=== PATIENT | female | born 1950 | race Caucasian/White ===

== ENCOUNTER → 2016-11-21 | Outpatient (CLI) | payer MEDICARE ==
[~2016-11-21] MED LIST: REGADENOSON 0.4 MG/5 ML SYRINGE IV ONE
--- NOTE | 2016-11-21 12:54 | NM ---
EXAMINATION TYPE: NM stress lexiscan cardiolite DATE OF EXAM: 11/21/2016 11:04 AM COMPARISON: NONE HISTORY: CHF TECHNIQUE: After the intravenous administration of 10.5 mCi Tc 99m Sestamibi - Cardiolite resting SP ECT images acquired 45 minutes post injection. The patient received 0.4mg Lexiscan, 25.8 mCi Tc 99m Sestamibi - Stress images obtained [address] injection FINDINGS: Review of stress and rest SPECT images demonstrates no distinct perfusion abnormality. Gated analysi s shows normal wall motion with an estimated left ventricular ejection fraction of 63 %. Some apical thinning appears to be present. This may be subtly greater on the stress images than rest images. Some minimal apical stress-induced ischemic change may be present. Remainder of the jarrett ab normal radiotracer distribution on resting and stress images. Wall motion appears normal polar maps s ubtly support the ischemic changes in the cardiac apex. IMPRESSION: 1. There may be some minimal stress-induced ischemic change the cardiac apex on stress images with mo re normal distribution at rest images. This is a subtle limited finding. 2. Remainder of the stress myocardial study appears normal.
--- NOTE | 2016-11-21 13:57 | EST ---
DATE OF SERVICE: 11/21/16 AGE: 66Y SEX: F HT: 65" WT: 222 lbs. Protocol Vignesh: Other: X Stage: Dur. of Exercise: *Heart Rate Blood Pressure *Rest: 76 Rest: 167/77 * *Max. Achieved: 104 Maximum BP: 167/70 85% PMHR: 129 100% PMHR: 152 *METS: INDICATIONS: Chest pain, hypertension. MEDICATIONS: The test is being done to evaluate cardiac status and chest pains. Baseline EKG showed sinus rhythm with normal MA interval and QRS duration. Blood pressure at rest is 167/77 with a pulse rate of 76. A standard dose of Lexiscan was infused. EKGs taken during and after the excise and did not reveal any changes from the baseline. FINAL IMPRESSION: 1. Negative Lexiscan stress test. 2. Report on the nuclear images to be given by the radiologist.
== END ==
LOC: RADNMMAIN 08:51
PROVIDERS: ATTEND Family Medicine
DX: I50.9 Heart failure, unspecified (principal)
CPT/HCPCS: 93017; 78452; A9500; J2785

== ENCOUNTER 2016-11-25 08:30 | Inpatient (IN) | payer MEDICARE ==
[2016-11-25 08:47] LABS: Glucose,Whole Blood 120 mg/dL (75-99)
[2016-11-25] MEDS ORDERED: RX INFO: IV CONTRAST WAS GIVEN 1 EACH MISC MISCELLANE PRN (09:18)
--- NOTE | 2016-11-25 09:22 | ED ---
Weakness HPI - General Chief complaint: Chest Pain Stated complaint: chest pain Time Seen by Provider: 11/25/16 08:38 Source: patient, RN notes reviewed Mode of arrival: ambulatory Limitations: no limitations - History of Present Illness Initial comments: This patient is a 66-year-old woman who presents to be evaluated for some left- sided chest pains that have been going on intermittently for a number of weeks, but were worse this morning. In addition the patient describes feeling some numbness to the perioral area and also to the left shoulder. MD Complaint: focal weakness -: hour(s) Location: face Severity: mild Quality: tingling, numbness Improves with: none Worsens with: none Associated Symptoms: chest pain - Related Data Home Medications Medication Instructions Recorded Confirmed Multivitamins, Thera [Multivitamin] 1 tab PO DAILY 10/12/16 11/25/16 Omeprazole [PriLOSEC] 20 mg PO DAILY 10/12/16 11/25/16 Previous Rx's Medication Instructions Recorded Atorvastatin [Lipitor] 20 mg PO DAILY #30 tab 10/13/16 Lisinopril [Zestril] 10 mg PO DAILY #30 tab 10/13/16 Metoprolol Tartrate [Lopressor] 50 mg PO DAILY #30 tab 10/13/16 amLODIPine [Norvasc] 5 mg PO DAILY #30 tab 10/13/16 Allergies Allergy/AdvReac Type Severity Reaction Status Date / Time No Known Allergies Allergy Verified 11/25/16 08:43 Review of Systems ROS Statement: Those systems with pertinent positive or pertinent negative responses have been documented in the HPI. ROS Other: All systems not noted in ROS Statement are negative. Constitutional: Reports: weakness. Denies: fever, chills Eyes: Reports: vision change Respiratory: Denies: cough, dyspnea Cardiovascular: Reports: as per HPI, chest pain. Denies: palpitations, dyspnea on exertion, orthopnea, edema, syncope Gastrointestinal: Denies: abdominal pain, nausea, vomiting Genitourinary: Denies: dysuria, hematuria Musculoskeletal: Denies: back pain Skin: Denies: rash Neurological: Reports: as per HPI, weakness, numbness. Denies: headache Past Medical History Past Medical History: GERD/Reflux, Osteoarthritis (OA) Additional Past Medical History / Comment(s): Kidney Stones, STRESS TEST, USED TO TAKE MEDS FOR HIGH BLOOD PRESSURE AND THYROID BUT TAKEN OFF BOTH FEW YEARS AGO.KIDENY STONES, CURRENTLY TAKING ABX FOR RT EYE INFECTION D/T A SCRATCH. History of Any Multi-Drug Resistant Organisms: None Reported Past Surgical History: Cholecystectomy, Hysterectomy Additional Past Surgical History / Comment(s): Lithotripsy, basket retrieval of kidney stones, COLONOSCOPY Past Anesthesia/Blood Transfusion Reactions: No Reported Reaction Additional Past Anesthesia/Blood Transfusion Reaction / Comment(s): BLOOD TRANSUFSION WHEN HAVING HER CHILDREN-NO REACTIONS TO BLOOD. Past Psychological History: No Psychological Hx Reported Smoking Status: Former smoker Past Alcohol Use History: Occasional Additional Past Alcohol Use History / Comment(s): STARTED SMOKING AT AGE 18 AND QUIT AT AGE 25 (LITE SMOKER) Past Drug Use History: None Reported - Past Family History Mother Family Medical History: Cancer Additional Family Medical History / Comment(s): HAD LYMPHOMA THEN 15 YEARS LATER HAD SMALL CELL CA(TOMACH) Father Family Medical History: Myocardial Infarction ([place]) Additional Family Medical History / Comment(s): PT WAS 9 YEARS OLD WHEN HER FATHER FROM MASSIVE RI. Brother(s) Family Medical History: Coronary Artery Disease (CAD), Myocardial Infarction (RI ) Additional Family Medical History / Comment(s): Pt had a 42 yrs old brother of a massive RI and another brother who had CABG at the age of 39yrs. General Exam Limitations: no limitations General appearance: alert, obese Head exam: Present: atraumatic, normocephalic Eye exam: Present: normal appearance, PERRL, EOMI. Absent: scleral icterus, conjunctival injection, nystagmus Neck exam: Present: normal inspection, full ROM Respiratory exam: Present: normal lung sounds bilaterally. Absent: respiratory distress, wheezes, rales, rhonchi, stridor Cardiovascular Exam: Present: regular rate, normal rhythm, normal heart sounds. Absent: systolic murmur, diastolic murmur, rubs, gallop GI/Abdominal exam: Present: soft. Absent: distended, tenderness, guarding, rebound, mass Extremities exam: Present: normal inspection, normal capillary refill. Absent: pedal edema, calf tenderness Back exam: Present: normal inspection. Absent: CVA tenderness (R), CVA tenderness (L) Neurological exam: Present: alert, oriented X3, normal gait, motor sensory deficit. Absent: CN II-XII intact (There is mild left facial droop with preserved upper motor neuron function) Skin exam: Present: warm, dry, intact, normal color. 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 ] Respiratory 16 16 16 Rate Blood Pressure 169/72 141/64 151/67 Blood Pressure [Sitting] O2 Sat by Pulse 99 99 98 Oximetry 11/25/16 11/25/16 11/25/16 11:40 12:40 12:55 Temperature 97.7 F 97.3 F L 97.7 F Pulse Rate 60 78 Pulse Rate [ 66 [employer]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 ] Respiratory 16 17 16 Rate Blood Pressure 143/63 160/88 Blood Pressure 164/72 [Sitting] O2 Sat by Pulse 95 96 98 Oximetry 11/25/16 11/25/16 11/25/16 13:10 13:19 13:24 Temperature 97.3 F L Pulse Rate 71 74 75 Pulse Rate [ 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 She does have left facial droop on the exam. The patient did wake with the symptoms, so the last time that she was noted be well was when she went to bed last night and this is well outside of the window, as well as patient's NIH SS score being low. - Lab Data Result diagrams: 11/25/16 08:45 11/25/16 08:45 Lab Results 11/25/16 11/25/16 11/25/16 Range/Units 08:42 08:45 08:45 WBC 8.3 (3.8-10.6) k/uL RBC 4.90 (3.80-5.40) m/uL Hgb 14.2 (11.4-16.0) gm/dL Hct 42.6 (34.0-46.0) % MCV 86.8 (80.0-100.0) fL MCH 29.0 (25.0-35.0) pg MCHC 33.4 (31.0-37.0) g/dL RDW 13.2 (11.5-15.5) % Plt Count 266 (150-450) k/uL Neutrophils % 68 % Lymphocytes % 24 % Monocytes % 5 % Eosinophils % 1 % Basophils % 1 % Neutrophils # 5.6 (1.3-7.7) k/uL Lymphocytes # 2.0 (1.0-4.8) k/uL Monocytes # 0.4 (0-1.0) k/uL Eosinophils # 0.1 (0-0.7) k/uL Basophils # 0.1 (0-0.2) k/uL PT (9.0-12.0) sec INR (<1.1) APTT (22.0-30.0) sec Sodium 145 (137-145) mmol/L Potassium 4.3 (3.5-5.1) mmol/L Chloride 104 (98-107) mmol/L Carbon Dioxide 29 (22-30) mmol/L Anion Gap 12 mmol/L BUN 12 (7-17) mg/dL Creatinine 0.62 (0.52-1.04) mg/dL Est GFR (MDRD) Af Amer >60 (>60 ml/min/1.73 sqM) Est GFR (MDRD) Non-Af >60 (>60 ml/min/1.73 sqM) Glucose 125 H (74-99) mg/dL POC Glucose (mg/dL) 120 H (75-99) mg/dL POC Glu Eye Physician ID Luis Miguel Palomares Calcium 9.1 (8.4-10.2) mg/dL Magnesium 1.8 (1.6-2.3) mg/dL Total Bilirubin 0.8 (0.2-1.3) mg/dL AST 22 (14-36) U/L ALT 35 (9-52) U/L Alkaline Phosphatase 113 (38-126) U/L Troponin I (0.000-0.034) ng/mL Total Protein 7.5 (6.3-8.2) g/dL Albumin 4.4 (3.5-5.0) g/dL 11/25/16 11/25/16 Range/Units 08:45 08:45 WBC (3.8-10.6) k/uL RBC (3.80-5.40) m/uL Hgb (11.4-16.0) gm/dL Hct (34.0-46.0) % MCV (80.0-100.0) fL MCH (25.0-35.0) pg MCHC (31.0-37.0) g/dL RDW (11.5-15.5) % Plt Count (150-450) k/uL Neutrophils % % Lymphocytes % % Monocytes % % Eosinophils % % Basophils % % Neutrophils # (1.3-7.7) k/uL Lymphocytes # (1.0-4.8) k/uL Monocytes # (0-1.0) k/uL Eosinophils # (0-0.7) k/uL Basophils # (0-0.2) k/uL PT 10.3 (9.0-12.0) sec INR 1.0 (<1.1) APTT 22.2 (22.0-30.0) sec Sodium (137-145) mmol/L Potassium (3.5-5.1) mmol/L Chloride (98-107) mmol/L Carbon Dioxide (22-30) mmol/L Anion Gap mmol/L BUN (7-17) mg/dL Creatinine (0.52-1.04) mg/dL Est GFR (MDRD) Af Amer (>60 ml/min/1.73 sqM) Est GFR (MDRD) Non-Af (>60 ml/min/1.73 sqM) Glucose (74-99) mg/dL POC Glucose (mg/dL) (75-99) mg/dL POC Glu Eye Physician ID Calcium (8.4-10.2) mg/dL Magnesium (1.6-2.3) mg/dL Total Bilirubin (0.2-1.3) mg/dL AST (14-36) U/L ALT (9-52) U/L Alkaline Phosphatase (38-126) U/L Troponin I <0.012 (0.000-0.034) ng/mL Total Protein (6.3-8.2) g/dL Albumin (3.5-5.0) g/dL Disposition Clinical Impression: Hypertension, Acute ischemic stroke Disposition: ADMITTED IP TO THIS HOSP Condition: Fair
[2016-11-25 09:31] LABS: Basophils # (A) 0.1 k/uL (0-0.2); Basophils % (A) 1 %; CH 29.7; CHCM 34.4; Eosinophils # (A) 0.1 k/uL (0-0.7); Eosinophils % (A) 1 %; HCT 42.6 % (34.0-46.0); HDW 2.73; HGB 14.2 gm/dL (11.4-16.0); Luc # (Auto) 0.13; Luc % (Auto) 2; Lymphocytes % (A) 24 %; MCHC 33.4 g/dL (31.0-37.0); MCV 86.8 fL (80.0-100.0); Mean Platelet Volume 8.3; Monocytes # (A) 0.4 k/uL (0-1.0); Monocytes % (A) 5 %; Neutrophils # (A) 5.6 k/uL (1.3-7.7); Neutrophils % (A) 68 %; RDW 13.2 % (11.5-15.5); WBC 8.3 k/uL (3.8-10.6); WBC (Perox) 8.52
[2016-11-25 09:45] LABS: ALT 35 U/L (9-52); AST 22 U/L (14-36); Alkaline Phosphatase 113 U/L (38-126); Anion Gap 12 mmol/L; Blood Urea Nitrogen 12 mg/dL (7-17); Calcium 9.1 mg/dL (8.4-10.2); Carbon Dioxide 29 mmol/L (22-30); Chloride 104 mmol/L (98-107); Glucose 125 mg/dL (74-99); Magnesium 1.8 mg/dL (1.6-2.3); Non-African American GFR(MDRD) >60 (>60 ml/min/1.73 sqM); Potassium 4.3 mmol/L (3.5-5.1); Sodium 145 mmol/L (137-145); Total Bilirubin 0.8 mg/dL (0.2-1.3); Total Protein 7.5 g/dL (6.3-8.2)
--- NOTE | 2016-11-25 09:47 | XR ---
EXAMINATION TYPE: XR chest 1V portable DATE OF EXAM: 11/25/2016 9:41 AM Comparison: 10/12/2016 Clinical History: 66-year-old female weakness Findings: Heart remains upper limits of normal in size. Aorta and pulmonary vasculature are within normal limit s. Mild interstitial prominence is unchanged. No consolidation or pleural effusion. Impression: Chronic changes without acute cardiopulmonary process.
[2016-11-25 09:49] LABS: Partial Thromboplastin Time 22.2 sec (22.0-30.0); Prothrombin Time 10.3 sec (9.0-12.0)
--- NOTE | 2016-11-25 11:09 | CT ---
EXAMINATION TYPE: CT brain wo con DATE OF EXAM: 11/25/2016 10:59 AM COMPARISON: NONE HISTORY: Lt facial droop and dizziness CT DLP: 1072.3 mGycm Automated exposure control for dose reduction was used. FINDINGS: There is no acute intracranial hemorrhage, mass effect, or midline shift identified. The ventricles and sulci are within normal limits in size. The globes are intact and the visualized sinuses are ibis ar. IMPRESSION: No acute intracranial hemorrhage, mass effect, or midline shift is seen.
--- NOTE | 2016-11-25 11:16 | CT ---
EXAMINATION TYPE: CT angio head neck DATE OF EXAM: 11/25/2016 11:00 AM COMPARISON: NONE HISTORY: Lt facial droop and dizziness CT DLP: DLP Brain 1072.3 and Neck 335.9 mGycm Automated exposure control for dose reduction was used. TECHNIQUE: Performed with IV Contrast, patient injected with 65 mL of Omnipaque 350. . FINDINGS: The common carotid artery and carotid bifurcations are widely patent with no significant stenosis. Left vertebral artery dominant. Basilar systems are patent. Normal enhancement of the cerebral arteri es. Hypertrophic and degenerative change of the vertebral column noted. Multilevel facet arthropathy and foraminal encroachment suspected. IMPRESSION: VASCULATURE APPEARS TO BE PATENT WITH NO SIGNIFICANT STENOSIS OR ANEURYSMS
[2016-11-25] MEDS ORDERED: ASPIRIN 325 MG TAB PO STA (11:49)
[2016-11-25] MEDS: SODIUM CHLORIDE 0.9% 1,000 ML IV SCH ×2 (13:06→21:04)
[2016-11-25] MEDS ORDERED: MORPHINE SULFATE 4 MG/ML SYRINGE IV STA (13:12)
[2016-11-25] MEDS: NITROGLYCERIN SL TABS 0.4 MG TAB SUBLINGUAL STA ×3 (13:14→13:24)
--- NOTE | 2016-11-25 14:00 | US ---
EXAMINATION TYPE: US carotid duplex BILAT DATE OF EXAM: 11/25/2016 1:41 PM COMPARISON: NONE CLINICAL HISTORY: 66-year-old female Stenosis. Abdominal pain, possibly cardiac related. TECHNIQUE: Carotid duplex ultrasound. Indirect Doppler criteria is utilized. FINDINGS: There is minimal atherosclerotic change at both bifurcations. EXAM MEASUREMENTS: RIGHT: Peak Systolic Velocity (PSV) cm/sec ----- Right CCA: 102.7 ----- Right ICA: 136.6 ----- Right ECA: 155.5 ICA/CCA ratio: 1.3 RIGHT: End Diastole cm/sec ----- Right CCA: 12.5 ----- Right ICA: 17.1 ----- Right ECA: 5.3 LEFT: Peak Systolic Velocity (PSV) cm/sec ----- Left CCA: 91.0 ----- Left ICA: 123.9 ----- Left ECA: 102.6 ICA/CCA ratio: 1.5 LEFT: End Diastole cm/sec ----- Left CCA: 12.0 ----- Left ICA: 31.2 ----- Left ECA: 6.9 VERTEBRALS (direction of flow): Right Vertebral: Antegrade Left Vertebral: Antegrade IMPRESSION: Slight elevation of the right ICA peak systolic velocity is slightly artifactual, such as from turbul ent flow. No significant narrowing is seen. Other measurements do not support any hemodynamically sig nificant stenosis in either ICA. Criteria for Assigning % of Stenosis / Diameter reduction (Estimation based on the indirect measurements of the internal carotid artery velocities (ICA PSV). 1. Normal (no stenosis)=ICA PSV < 125 cm/s: ratio < 2.0: ICA EDV<40 cm/s. 2. Less than 50% stenosis=ICA PSV < 125 cm/s: ratio < 2.0: ICA EDV<40 cm/s. 3. 50 to 69% stenosis=ICA PSV of 125 to 230 cm/s: ration 2.0 ? 4.0: ICA EDV 40-100 cm/s. 4. Greater than 70% stenosis to near occlusion= ICA PSV > 230 cm/s: ratio > 4.0: ICA EDV > 100 cm/s. 5. Near occlusion= ICA PSV velocities may be low or undetectable: variable ratio and ICA EDV. 6. Total occlusion=unable to detect flow.
--- NOTE | 2016-11-25 16:36 | HP ---
DATE OF ADMISSION: CHIEF COMPLAINT: A 66-year-old female with left-sided chest pain and possible TIA, seen in the ER this morning. She has some numbness around her mouth and radiating to her left shoulder at which time and some possibly focal weakness in extremities, tingling, numbness in her facial area on the left mild in nature. Associated with some chest pain. She is admitted to rule out myocardial infarction and possibly a stroke at this time. She has a past medical history of hypertensive heart disease. She is 66 years old. She has hypercholesterolemia also. Her home medicines include: 1. Norvasc 5 mg a day. 2. Lopressor 50 daily. 3. Zestril 10 daily. 4. Lipitor 20 daily. 5. Omeprazole 20 daily. 6. Aspirin 81 daily. REVIEW OF SYSTEMS: CARDIAC: As mentioned above. NEURO: As mentioned above. OPHTHALMOLOGIC: Negative. IMMUNE: Negative. INTEGUMENT: Negative. GASTROINTESTINAL: Negative. : Negative. ENDOCRINE: Negative use. ALLERGIES: No known drug allergies. PAST MEDICAL HISTORY: Gastroesophageal reflux disease, osteoarthritis, renal stones, hypothyroid, hypertension. SURGICAL HISTORY: Cholecystectomy, hysterectomy, lithotripsy, removal kidney stones, colonoscopy. SOCIAL HISTORY: She is a former smoker. No alcohol. No illicit drugs. PAST MEDICAL HISTORY: Mom had some cancer and lymphoma, 15 years later small cell cancer of the stomach. Father had myocardial infarction. PHYSICAL EXAM: Temperature 97, blood pressure is 180s to 220s/80 to 102, O2 sat 95 to 100% on room air. Respiratory rate 18 to 20. CARDIOVASCULAR: S1, S2 normal sinus rhythm. GI: Soft, nontender. No guarding. No rebound. NECK: Shows no adenopathy. LUNGS: Show mild wheezes x4. No rales or rhonchi. Fair air flow. OPHTHALMOLOGIC: No scleral icterus or conjunctival injection or nystagmus. HEAD: Normocephalic, atraumatic. ABDOMEN: Obese. Back is normal on inspection, no CVA tenderness. NEUROLOGIC: Alert and oriented x3. Cranial nerves are intact. Some mild left facial drooping. SKIN: No rashes, excoriations, bruising. EKG shows sinus rhythm. ASSESSMENT: 1. Left-sided chest pain, rule out myocardial infarction. 2. Rule out left facial drooping, suspect possibly a right-sided cerebrovascular accident. 3. Hypertension. 4. Dyslipidemia. 5. Obesity. 6. Thrombocytopenia. PLAN: Neurology, cardiac consult. Maintain blood pressure below 220/120. Will not treat aggressive blood pressure unless it is above this because she has acute stroke. Awaiting Neurology consult with Dr. Mata and Cardiology consult. Neuro checks. Echo and Carotid will be ordered. Please see further orders. Her symptoms started well over 3 hours past admission so TPA will be used at this time.
[2016-11-25] MEDS: DOCUSATE 100 MG CAP PO SCH ×2 (18:42→23:05)
[2016-11-25] MEDS: FAMOTIDINE 20 MG/2 ML VIAL IV SCH (20:58)
--- NOTE | 2016-11-25 21:28 | P.CNNES ---
History of Present Illness Consult date: 11/25/16 Requesting physician: Anupam Goss Reason for Consult: TIA Chief complaint: Left Sided Perioral Numbness History of Present Illness: Patient is a 66-year-old female being consulted on by neurology for right-sided perioral facial numbness on the left. Patient has also had left-sided chest pains that have been going intermittently for a number of weeks though worse this morning. She went to bed last night and woke with the symptoms described above. She was brought to the ED for evaluation. She denies any prior history of CVA or TIA. She also states she does not have any other prior history of any neurological disorders. Patient states that she believes her symptoms have resolved. Patient was found supine in bed resting comfortably. Patient was alert and oriented 3. She was in no acute distress. Review of Systems those systems pertinent positives or pertinent negative responses have been documented in the HPI. Past Medical History Past Medical History: GERD/Reflux, Hyperlipidemia, Hypertension, Osteoarthritis (OA), Renal Disease, Sleep Apnea/CPAP/BIPAP, Thyroid Disorder Additional Past Medical History / Comment(s): Pt states she had a stress test done here [facility] on 11/21/16-does not know results yet, kidney Stones, generalized arthritis, PURVI no longer uses CPAP, recent R corneal abrasion/infection now healed. History of Any Multi-Drug Resistant Organisms: None Reported Past Surgical History: Cholecystectomy, Hysterectomy Additional Past Surgical History / Comment(s): Lithotripsies, basket retrieval of kidney stones, COLONOSCOPY Past Anesthesia/Blood Transfusion Reactions: No Reported Reaction Additional Past Anesthesia/Blood Transfusion Reaction / Comment(s): BLOOD TRANSUFSION WHEN HAVING HER CHILDREN-NO REACTIONS TO BLOOD. Past Psychological History: No Psychological Hx Reported Additional Psychological History / Comment(s): Pt resides with her spouse. She is independent. Smoking Status: Former smoker Past Alcohol Use History: Occasional Additional Past Alcohol Use History / Comment(s): STARTED SMOKING AT AGE 18 AND QUIT AT AGE 25 (LITE SMOKER) Past Drug Use History: None Reported - Past Family History Mother Family Medical History: Cancer Additional Family Medical History / Comment(s): HAD LYMPHOMA THEN 15 YEARS LATER HAD SMALL CELL CA(STOMACH) Father Family Medical History: Myocardial Infarction ([place]) Additional Family Medical History / Comment(s): PT WAS 11 YEARS OLD WHEN HER FATHER FROM MASSIVE [place]. He was 45yrs old when he . Brother(s) Family Medical History: Coronary Artery Disease (CAD), Myocardial Infarction ([place] ) Additional Family Medical History / Comment(s): Pt had a 42 yrs old brother of a massive AR and another brother who had CABG at the age of 39yrs. Medications and Allergies Home Medications Medication Instructions Recorded Confirmed Type Multivitamins, Thera [Multivitamin] 1 tab PO DAILY 10/12/16 11/25/16 History Omeprazole [PriLOSEC] 20 mg PO DAILY 10/12/16 11/25/16 History Allergies Allergy/AdvReac Type Severity Reaction Status Date / Time No Known Allergies Allergy Verified 11/25/16 08:43 Physical Examination - Vital Signs Vital Signs: Vital Signs Temp Pulse Pulse Resp BP BP Pulse Ox 11/25/16 19:05 97.5 F L 78 18 135/57 95 11/25/16 17:05 66 18 148/72 97 11/25/16 16:05 98.5 F 65 16 148/71 97 11/25/16 15:05 97.8 F 68 18 175/82 99 11/25/16 14:05 97.1 F L 67 16 159/70 97 11/25/16 13:24 75 16 135/63 92 L 11/25/16 13:19 74 16 167/75 94 L 11/25/16 13:10 97.3 F L 71 17 172/74 97 11/25/16 12:55 97.7 F 78 16 160/88 98 11/25/16 12:40 97.3 F L 68 17 164/72 96 Intake and Output 11/25/16 11/25/16 11/25/16 06:59 14:59 22:59 Intake Total 40 Balance 40 Intake: Oral 40 Other: # Voids 2 - Constitutional General appearance: cooperative, obese - EENT EENT: ATNC, PERRL, vision intact - Respiratory Respiratory: lungs clear, no respiratory distress, no accessory muscle use, no crackles, no rales, no rhonchi, no stridor, no wheezing - Cardiovascular regular rate and rhythm Extremities: no peripheral edema bilaterally, no clubbing, cyanosis - Gastrointestinal Gastrointestinal: normoactive bowel sounds, non-distended - Integumentary Integumentary: normal - Neurologic Cranial nerves II through XII intact. Slight perioral left-sided facial droop was noted on exam. Perioral droop is primarily in the upper lip. Test Skein Winder strengths are equal bilaterally 5/5. Lower extremity strengths are equal bilaterally at a 5/5. Reflexes are symmetrical and equal bilaterally both upper and lower extremities. No other unilateralizing weakness noted. No seizure activity on exam. Speech and language were normal. Cranial nerve examination: PERRL, no ptosis, no nystagmus, no face symmetric, intact shoulder shrug, intact gag reflex, facial droop, normal palatal elevation Detailed sensory examination: intact - Musculoskeletal Musculoskeletal: no fluid collection, no pain, normal range of motion - Psychiatric Psychiatric: mood/affect appropriate, cooperative Results - Laboratory Findings CBC and BMP: 11/25/16 08:45 11/25/16 08:45 - Diagnostic Findings Comments: CT angiogram of the head and neck noted vasculature appears to be patent with no significant stenosis or aneurysms. EEG is ordered and pending Repeat MRI 24 hours post initial presentation - pending Echocardiogram with bubble study - pending Assessment and Plan (1) Acute ischemic stroke Narrative/Plan: Patient appears to have suffered an acute ischemic stroke. On exam she does have left-sided slight perioral facial droop consistent with a new CVA. Patient is currently on 325 mg aspirin as well as Lipitor 20 mg daily. We will continue the Lipitor as previously prescribed, discontinue 325 mg aspirin and implement 81 mg aspirin daily. I will also add Plavix [address] angiogram was unremarkable. Carotid Doppler noted no hemodynamically significant stenosis. I am going to order an MRI at 24 hours post presentation for November 26, 2016. Patient will be continued on neuro checks as previously ordered. Serum homocysteine and EEG have also been ordered. I'm also going to order a fasting lipid panel and an echocardiogram with a bubble study. Ordered: MRI brain WO contrast Serum Homocyteine level EEG Fasting Lipid Panel Echocardiogram with Bubble study Plavix 75 mg QDAY Continue: Lipitor 20 md QDAY Aspirin 81 mg QDAY Neuro checks per existing order Further treatment recommendations will be forthcoming once results of imaging and testing of been received. Neurology will continue to follow. Status: Acute
[2016-11-26 08:52] LABS: Cholesterol 165 mg/dL (<200); HDL Cholesterol 54 mg/dL (40-60); Triglycerides 149 mg/dL (<150)
[2016-11-26] MEDS ORDERED: amLODIPine 5 MG TAB PO SCH (09:00)
[2016-11-26] MEDS ORDERED: LISINOPRIL 10 MG TAB PO SCH (09:00)
[2016-11-26] MEDS: ASPIRIN 81 MG CHEW PO SCH (09:14)
[2016-11-26] MEDS: CLOPIDOGREL 75 MG TAB PO SCH (09:14)
[2016-11-26] MEDS: PANTOPRAZOLE 40 MG TABLET PO SCH (09:14)
[2016-11-26] MEDS: METOPROLOL TARTRATE 50 MG TAB PO SCH (09:14)
[2016-11-26] MEDS: ATORVASTATIN 20 MG TAB PO SCH (09:14)
[2016-11-26] MEDS: MULTIVITAMINS, THERA 1 EACH TAB PO SCH (09:14)
[2016-11-26] MEDS: DOCUSATE 100 MG CAP PO SCH ×3 (09:15→22:20)
[2016-11-26] MEDS: SODIUM CHLORIDE 0.9% 1,000 ML IV SCH ×2 (09:15→22:20)
[2016-11-26] MEDS: FAMOTIDINE 20 MG/2 ML VIAL IV SCH (09:15)
--- NOTE | 2016-11-26 11:32 | P.CRDCN ---
<Vandana Ness - Last Filed: 11/26/16 11:29> History of Present Illness Consult date: 11/26/16 Reason for Consult (text): chest pain Chief complaint: left arm numbness and tingling History of present illness: This is a 66-year-old woman with a known history of hypertension, GERD and osteoarthritis. She presented to the emergency department mainly with complaints of high blood pressure, with left chest burning and numbness and tingling extending into her arm. CT of the brain and CT angiogram were both negative and chest x-ray showed no acute cardiopulmonary process. Troponin levels have been negative at less than 0.0123. She has been having intermittent left-sided chest discomfort under her left breast for several weeks and was seen by Dr. GENA Oliveira during her last admission. She had an echocardiogram done at that time to that showed an ejection fraction of 60-65%. She did undergo stress test earlier this week that showed possibility of minimal stress-induced ischemic change at the cardiac apex. Upon examination this morning, patient is resting comfortably in bed. She denies any further complaints of chest discomfort or numbness and tingling to her left arm. The health information systems technician was up to do an echo with bubble study however was unable to visualize. Past Medical History Past Medical History: GERD/Reflux, Hyperlipidemia, Hypertension, Osteoarthritis (OA), Renal Disease, Sleep Apnea/CPAP/BIPAP, Thyroid Disorder Additional Past Medical History / Comment(s): Pt states she had a stress test done here [facility] on 11/21/16-does not know results yet, kidney Stones, generalized arthritis, PURVI no longer uses CPAP, recent R corneal abrasion/infection now healed. History of Any Multi-Drug Resistant Organisms: None Reported Past Surgical History: Cholecystectomy, Hysterectomy Additional Past Surgical History / Comment(s): Lithotripsies, basket retrieval of kidney stones, COLONOSCOPY Past Anesthesia/Blood Transfusion Reactions: No Reported Reaction Additional Past Anesthesia/Blood Transfusion Reaction / Comment(s): BLOOD TRANSUFSION WHEN HAVING HER CHILDREN-NO REACTIONS TO BLOOD. Past Psychological History: No Psychological Hx Reported Additional Psychological History / Comment(s): Pt resides with her spouse. She is independent. Smoking Status: Former smoker Past Alcohol Use History: Occasional Additional Past Alcohol Use History / Comment(s): STARTED SMOKING AT AGE 18 AND QUIT AT AGE 25 (LITE SMOKER) Past Drug Use History: None Reported - Past Family History Mother Family Medical History: Cancer Additional Family Medical History / Comment(s): HAD LYMPHOMA THEN 15 YEARS LATER HAD SMALL CELL CA(STOMACH) Father Family Medical History: Myocardial Infarction ([place]) Additional Family Medical History / Comment(s): PT WAS 11 YEARS OLD WHEN HER FATHER FROM MASSIVE [place]. He was 45yrs old when he . Brother(s) Family Medical History: Coronary Artery Disease (CAD), Myocardial Infarction ([place] ) Additional Family Medical History / Comment(s): Pt had a 42 yrs old brother of a massive [place] and another brother who had CABG at the age of 39yrs. Medications and Allergies Home Medications Medication Instructions Recorded Confirmed Type Multivitamins, Thera [Multivitamin] 1 tab PO DAILY 10/12/16 11/25/16 History Omeprazole [PriLOSEC] 20 mg PO DAILY 10/12/16 11/25/16 History Allergies Allergy/AdvReac Type Severity Reaction Status Date / Time No Known Allergies Allergy Verified 11/25/16 08:43 Physical Exam Vitals: Vital Signs Temp Pulse Pulse Pulse Resp BP BP 11/26/16 04:00 97 F L 64 18 122/65 11/26/16 00:00 97.1 F L 67 18 155/71 11/25/16 20:00 97.8 F 66 18 133/68 11/25/16 19:05 97.5 F L 78 18 11/25/16 17:05 66 18 11/25/16 16:05 98.5 F 65 16 11/25/16 15:05 97.8 F 68 18 11/25/16 14:05 97.1 F L 67 16 11/25/16 13:24 75 16 135/63 11/25/16 13:19 74 16 167/75 11/25/16 13:10 97.3 F L 71 17 172/74 11/25/16 12:55 97.7 F 78 16 160/88 11/25/16 12:40 97.3 F L 68 17 BP Pulse Ox 11/26/16 04:00 95 11/26/16 00:00 95 11/25/16 20:00 94 L 11/25/16 19:05 135/57 95 11/25/16 17:05 148/72 97 11/25/16 16:05 148/71 97 11/25/16 15:05 175/82 99 11/25/16 14:05 159/70 97 11/25/16 13:24 92 L 11/25/16 13:19 94 L 11/25/16 13:10 97 11/25/16 12:55 98 11/25/16 12:40 164/72 96 Intake and Output 11/25/16 11/26/16 11/26/16 22:59 06:59 14:59 Intake Total 40 Output Total 1350 Balance 40 -1350 Intake: Oral 40 Output: Urine 1350 Other: Voiding Method Toilet Toilet Urinal Urinal # Voids 2 1 Weight 105.5 kg PHYSICAL EXAMINATION: HEENT: Head is atraumatic, normocephalic. Pupils equal, round. Neck is supple. There is no elevated jugular venous pressure. HEART EXAMINATION: Heart sounds regular, S1 and S2 normal. No murmur or gallop heard. CHEST EXAMINATION: Lungs are clear to auscultation and precussion. No chest wall tenderness is noted on palpation or with deep breathing. ABDOMEN: Soft, obese, nontender. Bowel sounds are heard. No organomegaly noted. EXTREMITIES: 2+ peripheral pulses with no evidence of peripheral edema and no calf tenderness noted. NEUROLOGIC patient is awake, alert and oriented x3. . Results 11/25/16 08:45 11/25/16 08:45 Cardiac Enzymes 11/25/16 11/25/16 Range/Units 15:06 20:41 Troponin I <0.012 <0.012 (0.000-0.034) ng/mL Lipids 11/26/16 Range/Units 07:58 Triglycerides 149 (<150) mg/dL Cholesterol 165 (<200) mg/dL HDL Cholesterol 54 (40-60) mg/dL Current Medications Generic Name Dose Route Start Last Admin Trade Name Freq PRN Reason Stop Dose Admin Amlodipine Besylate 5 mg 11/26/16 09:00 11/26/16 09:14 Norvasc PO 5 mg DAILY MINERVA Administration Aspirin 81 mg 11/26/16 09:00 11/26/16 09:14 Aspirin PO 81 mg DAILY MINERVA Administration Atorvastatin Calcium 20 mg 11/26/16 09:00 11/26/16 09:14 Lipitor PO 20 mg DAILY MINERVA Administration Clopidogrel Bisulfate 75 mg 11/26/16 09:00 11/26/16 09:14 Plavix PO 75 mg DAILY MINERVA Administration Docusate Sodium 100 mg 11/25/16 16:00 11/26/16 09:15 Colace PO Not Given Q8HR MINERVA Famotidine 20 mg 11/25/16 21:00 11/26/16 09:15 Pepcid IV Not Given Q12HR MINERVA Sodium Chloride 1,000 mls @ 100 mls/hr 11/25/16 12:00 11/26/16 09:15 Saline 0.9% IV 100 mls/hr .Q10H MINERVA Administration Lisinopril 10 mg 11/26/16 09:00 11/26/16 09:14 Zestril PO 10 mg DAILY MINERVA Administration Metoprolol Tartrate 50 mg 11/26/16 09:00 11/26/16 09:14 Lopressor PO 50 mg DAILY MINERVA Administration Miscellaneous Information 1 each 11/25/16 09:18 11/25/16 11:43 Rx Info: Iv Contrast Was Given MISCELLANE 11/27/16 09:19 1 each DAILY PRN Administration Per Protocol Multivitamins 1 each 11/26/16 09:00 11/26/16 09:14 Theragran PO 1 each DAILY MINERVA Administration Pantoprazole Sodium 40 mg 11/26/16 09:00 11/26/16 09:14 Protonix PO 40 mg DAILY MINERVA Administration Intake and Output 11/25/16 11/26/16 11/26/16 22:59 06:59 14:59 Intake Total 40 Output Total 1350 Balance 40 -1350 Intake: Oral 40 Output: Urine 1350 Other: Voiding Method Toilet Toilet Urinal Urinal # Voids 2 1 Weight 105.5 kg Assessment and Plan Plan: Assessment and plan #1 hypertension, uncontrolled #2 left-sided chest discomfort #3 left facial droop with left arm numbness tingling and weakness; possible CVA From cardiac standpoint, symptoms likely related to uncontrolled hypertension. We will increase amlodipine and lisinopril. We'll continue to follow the patient provide further recommendations accordingly. SECOND FACING BASTER note has been reviewed, I agree with a documented findings and plan of care. Patient was seen and examined. <Gary Devlin - Last Filed: 11/26/16 11:33> Physical Exam Vitals: Vital Signs Temp Pulse Pulse Pulse Resp BP BP 11/26/16 08:55 97.4 F L 64 18 142/76 11/26/16 04:00 97 F L 64 18 122/65 11/26/16 00:00 97.1 F L 67 18 155/71 11/25/16 20:00 97.8 F 66 18 133/68 11/25/16 19:05 97.5 F L 78 18 11/25/16 17:05 66 18 11/25/16 16:05 98.5 F 65 16 11/25/16 15:05 97.8 F 68 18 11/25/16 14:05 97.1 F L 67 16 11/25/16 13:24 75 16 135/63 11/25/16 13:19 74 16 167/75 11/25/16 13:10 97.3 F L 71 17 172/74 11/25/16 12:55 97.7 F 78 16 160/88 11/25/16 12:40 97.3 F L 68 17 BP Pulse Ox 11/26/16 08:55 96 11/26/16 04:00 95 11/26/16 00:00 95 11/25/16 20:00 94 L 11/25/16 19:05 135/57 95 11/25/16 17:05 148/72 97 11/25/16 16:05 148/71 97 11/25/16 15:05 175/82 99 11/25/16 14:05 159/70 97 11/25/16 13:24 92 L 11/25/16 13:19 94 L 11/25/16 13:10 97 11/25/16 12:55 98 11/25/16 12:40 164/72 96 Intake and Output 11/25/16 11/26/16 11/26/16 22:59 06:59 14:59 Intake Total 40 Output Total 1350 Balance 40 -1350 Intake: Oral 40 Output: Urine 1350 Other: Voiding Method Toilet Toilet Urinal Urinal # Voids 2 1 Weight 105.5 kg Results 11/25/16 08:45 11/25/16 08:45 Cardiac Enzymes 11/25/16 11/25/16 Range/Units 15:06 20:41 Troponin I <0.012 <0.012 (0.000-0.034) ng/mL Lipids 11/26/16 Range/Units 07:58 Triglycerides 149 (<150) mg/dL Cholesterol 165 (<200) mg/dL HDL Cholesterol 54 (40-60) mg/dL Current Medications Generic Name Dose Route Start Last Admin Trade Name Armandoq PRN Reason Stop Dose Admin Amlodipine Besylate 5 mg 11/26/16 21:00 Norvasc PO BID MINERVA Aspirin 81 mg 11/26/16 09:00 11/26/16 09:14 Aspirin PO 81 mg DAILY MINERVA Administration Atorvastatin Calcium 20 mg 11/26/16 09:00 11/26/16 09:14 Lipitor PO 20 mg DAILY MINERVA Administration Clopidogrel Bisulfate 75 mg 11/26/16 09:00 11/26/16 09:14 Plavix PO 75 mg DAILY MINERVA Administration Docusate Sodium 100 mg 11/25/16 16:00 11/26/16 09:15 Colace PO Not Given Q8HR MINERVA Famotidine 20 mg 11/25/16 21:00 11/26/16 09:15 Pepcid IV Not Given Q12HR MINERVA Sodium Chloride 1,000 mls @ 100 mls/hr 11/25/16 12:00 11/26/16 09:15 Saline 0.9% IV 100 mls/hr .Q10H MINERVA Administration Lisinopril 10 mg 11/26/16 21:00 Zestril PO BID MINERVA Metoprolol Tartrate 50 mg 11/26/16 09:00 11/26/16 09:14 Lopressor PO 50 mg DAILY MINERVA Administration Miscellaneous Information 1 each 11/25/16 09:18 11/25/16 11:43 Rx Info: Iv Contrast Was Given MISCELLANE 11/27/16 09:19 1 each DAILY PRN Administration Per Protocol Multivitamins 1 each 11/26/16 09:00 11/26/16 09:14 Theragran PO 1 each DAILY MINERVA Administration Pantoprazole Sodium 40 mg 11/26/16 09:00 11/26/16 09:14 Protonix PO 40 mg DAILY MINERVA Administration Intake and Output 11/25/16 11/26/16 11/26/16 22:59 06:59 14:59 Intake Total 40 Output Total 1350 Balance 40 -1350 Intake: Oral 40 Output: Urine 1350 Other: Voiding Method Toilet Toilet Urinal Urinal # Voids 2 1 Weight 105.5 kg
[2016-11-26] MEDS ORDERED: ASPIRIN 325 MG TAB PO SCH (11:52)
--- NOTE | 2016-11-26 15:02 | ECHOF ---
Referral Reason:CVA MEASUREMENTS -------- HEIGHT: 165.1 cm WEIGHT: 10.0 kg BP: FINDINGS -------- Atempted bubble study images not clear to see interatral septem. CONCLUSIONS -------- 1. Atempted bubble study images not clear to see interatral septem. CONFERENCE MANAGER: Ana Valdez RDCS
[2016-11-26] MEDS: LISINOPRIL 10 MG TAB PO SCH (22:21)
[2016-11-26] MEDS: amLODIPine 5 MG TAB PO SCH (22:21)
--- NOTE | 2016-11-26 22:55 | P.PN ---
Subjective Principal diagnosis: CVA with left shoulder droop/left upper lip. Patient is 58-year-old female being followed by neurology for left sided facial numbness-droop/perioral. Patient also had complaints of left-sided chest pain and been ongoing intermittently for a number of weeks though worse recently. She was brought to the ED for evaluation. She denied any prior history of CVA or TIA. As a stated she did not have any other prior history of any neurological disorders. Patient states she loses her symptoms have resolved. Patient was found supine in bed resting comfortably. Patient was alert and oriented 3. She is in no acute distress. However, her left upper lip droop was present but appeared to be improving. Objective - Vital Signs Vital signs: Vital Signs Temp 97.3 F L 11/26/16 16:20 Pulse 56 L 11/26/16 16:20 Resp 18 11/26/16 16:20 BP 136/62 11/26/16 16:20 Pulse Ox 97 11/26/16 16:20 Intake & Output 11/26/16 11/26/16 11/27/16 06:59 18:59 06:59 Intake Total 800 Output Total 1350 2 Balance -1350 798 Weight 105.5 kg Intake: IV 800 Sodium Chloride 0.9% 1, 800 000 ml @ 100 mls/hr IV . Q10H MINERVA Rx#:[id number] Output: Urine 1350 2 Other: Voiding Method Toilet Urinal # Voids 1 - Exam Constitutional: AOx3, cooperative Head: NC/AT Throat: Supple, no masses Respiratory: No increased work of breathing Cardiac: Regular rate and Rhythm GI: non tender, non distended Musculoskeletal: Underwear Finisher strengths are equal bilaterally 5/5, Lower extremity strengths are equal bilaterally at 5/5. Neurological: CN II-XII in tact, patient was AOx3, speech and language are normal, no unilateralizing weakness, no seizure activity note on physical exam. Sensation was normal. Left perioral droop noted in the upper lip-slight. It does appear to be improved since yesterday. Integementary: no rash, no erythema Psychiatric: mood and affect appropriate - Labs CBC & Chem 7: 11/25/16 08:45 11/25/16 08:45 Assessment and Plan (1) Acute ischemic stroke Narrative/Plan: Patient appears to have suffered an acute ischemic stroke. On exam she does have left-sided slight perioral facial droop consistent with a new CVA. CT angiogram was unremarkable. Carotid Doppler noted no hemodynamically significant stenosis. Patient will be continued on neuro checks as previously ordered. Serum homocysteine was normal. EEG is still pending. Fasting lipid panel noted triglycerides were within normal range but were at the very high end of normal. I will continue the patient on Lipitor 20 mg daily, aspirin 81 mg Qday and Plavix 75 mg daily. Continue nueuro checks each shift. Neurology will continue to follow. If the EEG results are the only requirement to discharge, the patient can be cleared from a neurological perspective and the results reviewed in the office. If the patient is discharged, the medications as noted above will remain in place. Patient would need to contact our office in 2 business days to be seen within 10 -14 days. I discussed the patient's pertinent medical information with Dr. Mata. He agrees with the plan of care as implemented. Status: Acute
[2016-11-27 01:41] LABS: Hemoglobin A1C 5.8 % (4.2-6.1)
[2016-11-27] MEDS: SODIUM CHLORIDE 0.9% 1,000 ML IV SCH ×2 (05:22→16:10)
[2016-11-27] MEDS: LISINOPRIL 10 MG TAB PO SCH ×2 (08:34→21:39)
[2016-11-27] MEDS: ATORVASTATIN 20 MG TAB PO SCH (08:35)
[2016-11-27] MEDS: amLODIPine 5 MG TAB PO SCH ×2 (08:35→21:39)
[2016-11-27] MEDS: METOPROLOL TARTRATE 50 MG TAB PO SCH (08:35)
[2016-11-27] MEDS: DOCUSATE 100 MG CAP PO SCH ×2 (08:35→16:16)
[2016-11-27] MEDS: PANTOPRAZOLE 40 MG TABLET PO SCH (08:35)
[2016-11-27] MEDS: MULTIVITAMINS, THERA 1 EACH TAB PO SCH (08:35)
[2016-11-27] MEDS: ASPIRIN 81 MG CHEW PO SCH (08:36)
[2016-11-27] MEDS: CLOPIDOGREL 75 MG TAB PO SCH (08:36)
--- NOTE | 2016-11-27 08:51 | PN ---
SUBJECTIVE: 66-year-old with uncontrolled hypertension, left-sided chest discomfort, left facial drooping with left arm numbness and tingling, weakness with possible cerebrovascular accident. Cardiology consult was appreciated today, which showed symptoms mostly likely secondary to hypertension. They increased amlodipine and lisinopril and wait for neurologic work-up. The patient is much better with limited facial drooping today. She has been up ambulating down the hallway. Waiting for an MRI to be done. Blood pressure from 130s to 150s systolic over 70s to 80s. They did some kind of bubble echo that is not clear to see an atrial septum. CARDIOVASCULAR: S1, S2. LUNGS: Clear. GI: Soft. ENDOCRINE: BMI is over 40. MUSCULOSKELETAL: Shows tenderness to palpation in the midthoracic spine on the left. You can trace the tenderness around the ribs to the front of the chest. ASSESSMENT: Transient ischemic attack versus symptoms from hypertension acceleration. Awaiting MRI to rule out completely a stroke. Carotid and echo are essentially normal. Prior stress test that was a little bit abnormal at the apex four days ago prior to admission. Await cardiology to review this. Wait for the MRI be reviewed. Please see further orders.
[2016-11-28] MEDS: DOCUSATE 100 MG CAP PO SCH ×3 (00:36→09:15)
[2016-11-28] MEDS: SODIUM CHLORIDE 0.9% 1,000 ML IV SCH (00:37)
[2016-11-28] MEDS: PANTOPRAZOLE 40 MG TABLET PO SCH (09:14)
[2016-11-28] MEDS: amLODIPine 5 MG TAB PO SCH (09:14)
[2016-11-28] MEDS: MULTIVITAMINS, THERA 1 EACH TAB PO SCH (09:14)
[2016-11-28] MEDS: LISINOPRIL 10 MG TAB PO SCH (09:14)
[2016-11-28] MEDS: CLOPIDOGREL 75 MG TAB PO SCH (09:14)
[2016-11-28] MEDS: ASPIRIN 81 MG CHEW PO SCH (09:14)
[2016-11-28] MEDS: ATORVASTATIN 20 MG TAB PO SCH (09:14)
[2016-11-28 10:51] VITALS: RESP 20
--- NOTE | 2016-11-28 11:12 | PN ---
SUBJECTIVE: This is a 66-year-old white female with a history of hypertension acceleration, possible TIA, CVA. The patient's blood pressure medicines were increased by cardiology, awaiting MRI tomorrow. Cardiology also could not comment on recent stress test. CARDIOVASCULAR: S1, S2. LUNGS: Clear. GI: Soft. MUSCULOSKELETAL: Tenderness to palpation in the left thoracic spine radiating to the middle thoracic. Temperature 97, blood pressure 130s to 140s over 60s to 70s. O2 97% on room air, respiratory rate 16 to 18. ASSESSMENT: 1. TIA. 2. Hypertension acceleration. 3. Thoracic radiculopathy. 4. Prior abnormal stress test. 5. Obesity. PLAN: Suspect MRI will be done tomorrow if negative she will be discharged home on Plavix, aspirin cholesterol medicines, increased blood pressure pills. Prognosis is stable.
--- NOTE | 2016-11-28 11:12 | CT ---
EXAMINATION TYPE: CT brain wo con DATE OF EXAM: 11/28/2016 11:05 AM COMPARISON: 11/25/2016 HISTORY: Patient complains of recent stroke. Patient has no complaints at time of service. CT DLP: [address] of the brain was performed. The ventricles, basal cisterns and sulci overlying the cerebral convexities demonstrate mild enlargem ent. There is no evidence for intracranial hemorrhage or sulcal effacement. There is decreased attenuation about the periventricular white matter and deep white matter of both c erebral hemispheres, compatible with chronic small vessel ischemia. Differential diagnosis does inclu de demyelination. No mass effects are seen.No midline shift. Osseous calvarium is intact. If symptoms persist consider MRI. IMPRESSION: 1. Age related atrophic and chronic small vessel ischemic change without acute intracranial process s een at this time.
--- NOTE | 2016-11-28 11:34 | P.PN ---
Subjective Principal diagnosis: CVA with left shoulder droop/left upper lip. Patient is 58-year-old female being followed by neurology for left sided facial numbness-droop/perioral. Patient also had complaints of left-sided chest pain and been ongoing intermittently for a number of weeks though worse recently. She was brought to the ED for evaluation. She denied any prior history of CVA or TIA. As a stated she did not have any other prior history of any neurological disorders. Patient states she loses her symptoms have resolved. Patient was found supine in bed resting comfortably. Patient was alert and oriented 3. She is in no acute distress. However, her left upper lip droop was present but appeared to be improving. Patient stated today that she has having intermittent pain just below the left breast. He states that intermittently radiates from the upper back around laterally and then anteriorly. Based on the patient was pointing, the pain appears to be intercostal pain. She states that the pain can be intense. States that the pain has been intermittently occurring for the last couple months. She is a uterine cancer survivor of greater than 20+ years. She has not had any follow-up since approximately 5 years post-hysterectomy. Patient also complains of axillary pain under the left arm. Patient is a prior smoker but stopped smoking approximately 18-20 years ago. Patient states a primary care provider is aware and at this time is been told that it appears to be possibly a pinched nerve. Objective - Vital Signs Vital signs: Vital Signs Temp 97.2 F L 11/28/16 08:00 Pulse 84 11/28/16 08:00 Resp 20 11/28/16 08:00 BP 141/78 11/28/16 08:00 Pulse Ox 95 11/28/16 08:00 Intake & Output 11/27/16 11/28/16 11/28/16 18:59 06:59 18:59 Intake Total 180 180 Output Total 1101 1550 500 Balance -921 -0100 -320 Weight 104.5 kg Intake: Oral 180 180 Output: Urine 1101 1550 500 Other: Voiding Method Toilet # Voids 1 - Exam Constitutional: AOx3, cooperative Head: NC/AT Throat: Supple, no masses Respiratory: No increased work of breathing Cardiac: Regular rate and Rhythm GI: non tender, non distended Musculoskeletal: Erecting Engineer strengths are equal bilaterally 5/5, Lower extremity strengths are equal bilaterally at 5/5. on exam the patient does have intercostal pain consistent with T3 through T5 dermatomes anteriorly. Patient states the pain does intermittently occur with high back pain intermittently but not always. patient does have reproducible pain with palpation in the left axilla. Neurological: CN II-XII in tact, patient was AOx3, speech and language are normal, no unilateralizing weakness, no seizure activity note on physical exam. Sensation was normal. Left perioral droop noted in the upper lip-slight. It does appear to be improved since yesterday. Integementary: no rash, no erythema Psychiatric: mood and affect appropriate - Labs CBC & Chem 7: 11/25/16 08:45 11/25/16 08:45 Assessment and Plan (1) Intercostal pain Status: Acute (2) Thoracic spine pain Status: Acute (3) Acute ischemic stroke Narrative/Plan: 1. CVA: Patient appears to have suffered an acute ischemic stroke. On exam she does have left-sided slight perioral facial droop consistent with a new CVA. CT angiogram was unremarkable. Carotid Doppler noted no hemodynamically significant stenosis. Patient will be continued on neuro checks as previously ordered. Serum homocysteine was normal. EEG is still pending. Fasting lipid panel noted triglycerides were within normal range but were at the very high end of normal. I will continue the patient on Lipitor 20 mg daily, aspirin 81 mg Qday and Plavix 75 mg daily. Continue nueuro checks each shift. CT of the brain without contrast did note no acute intracranial process, chronic small vessel ischemic disease. Demyelination disorder should be included in differential diagnosis. Based on the results of the CT of the brain, we will follow up with the patient outpatient for workup for possible demyelination disorder as well as follow up for the CVA. Patient has been counseled by PT, OT and speech therapy EEG is still pending. If the patient's EEG is within normal limits, the patient can be cleared for discharge from a neurological standpoint. If the patient is discharged, please notify the patient to contact our office wasn't to days for a follow-up appointment within 10-14 days. 2. Thoracic pain: Patient does have reproducible pain on palpation in the area of the T4 dermatome with intercostal muscle Association. I am going to request further workup outpatient with thoracic MRI at her follow-up visit. Patient does have an unmanaged history of cancer with no recent follow-up for greater than 20+ years which is concerning given her complaints of left axilla pain as well. Further diagnostic testing and imaging will be conducted on outpatient basis. I discussed the patient's pertinent medical information with Dr. Mata. He agrees with the plan of care as implemented. Status: Acute
[2016-11-28] MEDS: METOPROLOL TARTRATE 50 MG TAB PO SCH (12:05)
--- NOTE | 2016-11-28 15:09 | P.PN ---
Subjective 66-year-old female being seen on rounds. Currently sitting up in a chair. Patient is denying any dizziness lightheadedness. Patient was presented in the emergency room for chief complaint of left-sided chest pain had been ongoing for the last several weeks had gotten progressively worse. Patient denies prior history of a CVA or TIA. Patient denied any prior episodes. Patient currently is being followed by neurology service. Patient continues to have left-sided slight perioral facial droop consistent with a new CVA. A computed tomography scan brain was unremarkable. Carotid Doppler studies were negative. Patient EEG is currently pending. Patient's lipid panel was within normal limits. Patient had a CAT scan of the brain without contrast CAT scan of the brain done this morning showed no acute process EEG patient is currently Objective - Vital Signs Vital signs: Vital Signs Temp 97 F L 11/28/16 11:59 Pulse 64 11/28/16 11:59 Resp 20 11/28/16 11:59 BP 126/70 11/28/16 11:59 Pulse Ox 98 11/28/16 11:59 Intake & Output 11/27/16 11/28/16 11/28/16 18:59 06:59 18:59 Intake Total 180 360 Output Total 1101 1550 500 Balance -921 -1550 -140 Weight 104.5 kg Intake: Oral 180 360 Output: Urine 1101 1550 500 Other: Voiding Method Toilet # Voids 1 - Exam Physical exam 66-year-old female sitting up in a chair no new events. Lungs essentially clear Heart S1-S2 audible regular monitor sinus Abdomen soft nontender Extremities no edema - Labs CBC & Chem 7: 11/25/16 08:45 11/25/16 08:45 Assessment and Plan Plan: Impression Present on admission left side chest pain intermittent unclear etiology Present on admission numbness to the left side periorbital area with facial droop consistent with a CVA Present on admission hypertension urgency Dyslipidemia Plan Await the EEG currently pending Continue recommendations by cardiology recognized appreciated and reviewed Continue with recommendations by neurology Continue aspirin 81 mg daily with Lipitor 20 mg daily monitor blood pressure address the antihypertensive meds as indicated further recommendations pending will follow The above dictated assessment and findings were discussed with dr ferguson . Impression and the plan of care have been dictated as directed. Traci Rojas nurse practitioner acting as a scribe for dr enriquez
--- NOTE | 2016-11-28 15:21 | P.PN ---
Subjective Principal diagnosis: Hypertension This is a 66-year-old female with known history of hypertension, osteoarthritis, GERD, she presented to the hospital with complaints of elevated blood pressure. She had some associated numbness and tingling in her arm. CT of the brain and CT angiogram are both negative. Chest x-ray did not reveal any acute process. Troponins have been negative. Patient did have an echocardiogram with Doppler study performed which revealed an ejection fraction of 60-65%. Patient also had a stress test performed earlier last week which revealed possibility of minimal stress-induced ischemia at the cardiac apex. Blood pressure this morning is stable. Patient feels well overall and quite eager to be discharged home. Objective - Vital Signs Vital signs: Vital Signs Temp 97 F L 11/28/16 11:59 Pulse 64 11/28/16 11:59 Resp 20 11/28/16 11:59 BP 126/70 11/28/16 11:59 Pulse Ox 98 11/28/16 11:59 Intake & Output 11/27/16 11/28/16 11/28/16 18:59 06:59 18:59 Intake Total 180 360 Output Total 1101 1550 500 Balance -921 -1550 -140 Weight 104.5 kg Intake: Oral 180 360 Output: Urine 1101 1550 500 Other: Voiding Method Toilet # Voids 1 - Exam PHYSICAL EXAMINATION: HEENT: Head is atraumatic, normocephalic. Pupils equal, round. Neck is supple. There is no elevated jugular venous pressure. HEART EXAMINATION: Heart S1, S2 normal. No murmur or gallop heard. CHEST EXAMINATION: Lungs are clear to auscultation and precussion. No chest wall tenderness is noted on palpation or with deep breathing. ABDOMEN: Soft, nontender. Bowel sounds are heard. No organomegaly noted. EXTREMITIES: 2+ peripheral pulses with no evidence of peripheral edema and no calf tenderness noted. NEUROLOGIC patient is awake, alert and oriented -3. . - Labs CBC & Chem 7: 11/25/16 08:45 11/25/16 08:45 Assessment and Plan (1) TIA (transient ischemic attack) Status: Acute (2) Hypertension Status: Acute Plan: Cardiology's perspective, patient may be able to be discharged once cleared by her primary. We will make her follow-up appointment in the office post discharge. With Dr. Mandaeism. DNP note has been reviewed, I agree with a documented findings and plan of care. Patient was seen and examined.
[2016-11-28 15:54] VITALS: BP 134/69; PULSE 63; TEMP 97.1
--- NOTE | 2016-11-28 16:01 | P.DS ---
Providers Date of admission: 11/25/16 11:52 Expected date of discharge: 11/28/16 Attending physician: Nakul Ferguson Consults: Dr. Harris associate [facility] Primary care physician: [facility] Course: 66-year-old female presented on the day of admission to the emergency room with a chief complaint of some numbness and tingling in the arm. Patient's blood pressure was noted to be elevated in the emergency room 220/102 patient's blood pressure was treated in the emergency room. CAT scan of the brain with a CT angiogram were obtained they were negative. The chest x-ray did not show any acute process. Cardiac enzymes were negative. Patient had an echocardiogram showed an ejection fraction of 60-65%. Also patient had a stress test performed last week which showed possibility of minimal stress-induced ischemia at the apex. Cardiology did participate in the plan of care and over the course of the hospitalization the blood pressure was better controlled. Patient had no further episodes patient had an EEG as part of the workup by neurology. Neurology indicated they would go over the results with the patient and a follow-up visit subsequent the patient was discharged home felt to be hemodynamically stable and appropriate to proceed Impression discharge diagnosis Present on admission left side chest pain intermittent no evidence of acute coronary syndrome Present on admission numbness to the left side periorbital area with left side facial droop consistent with a CVA Present on admission hypertension urgency Dyslipidemia Echocardiogram ejection fraction 60-65% Reoccurring episodes of uncontrolled hypertension The above dictated assessment and findings were discussed with dr ferguson Impression and the plan of care have been dictated as directed. Traci Rojas nurse practitioner acting as a scribe for dr ferguson Patient Condition at Discharge: Fair Plan - Discharge Summary New Discharge Prescriptions: Clopidogrel [Plavix] 75 mg PO DAILY #30 tab Lisinopril [Zestril] 10 mg PO BID #60 tab amLODIPine [Norvasc] 5 mg PO BID #60 tab Discharge Medication List Multivitamins, Thera [Multivitamin] 1 tab PO DAILY 10/12/16 [History] Omeprazole [PriLOSEC] 20 mg PO DAILY 10/12/16 [History] Atorvastatin [Lipitor] 20 mg PO DAILY #30 tab 10/13/16 [Rx] Metoprolol Tartrate [Lopressor] 50 mg PO DAILY #30 tab 10/13/16 [Rx] Aspirin 81 mg PO DAILY chew 11/28/16 [Rx] Clopidogrel [Plavix] 75 mg PO DAILY #30 tab 11/28/16 [Rx] Docusate [Colace] 100 mg PO Q8HR cap 11/28/16 [Rx] Lisinopril [Zestril] 10 mg PO BID #60 tab 11/28/16 [Rx] amLODIPine [Norvasc] 5 mg PO BID #60 tab 11/28/16 [Rx] Follow up Appointment(s)/Referral(s): Nakul Ferguson MD [Primary Care Provider] - 1-2 days Discharge Disposition: HOME SELF-CARE
--- NOTE | 2016-11-29 08:24 | EEG ---
DATE OF SERVICE: 11/26/2016 REASON FOR TESTING: Stroke. AGE: 66Y DESCRIPTION OF THE PROCEDURE: This EEG was performed using a 21-channel digital electroencephalograph, following the international 10 - 20 system. DESCRIPTION OF THE RECORDING: From the beginning of the tracing, and with the patient's eyes closed, the background rhythm was mostly consisting of 8 Hz alpha frequency in the posterior occipital leads. No obvious asymmetry is seen. Frequent muscle artifacts and occasional movement artifacts are seen. Photic stimulation was performed with a minimal driving response seen. No pathological waves were elicited. Hyperventilation was not performed. The patient remains awake throughout the tracing. No epileptiform discharges were seen. Her EKG lead showed a regular rate and rhythm. INTERPRETATION: This awake EEG can be considered within normal limits. There was no asymmetry seen. No epileptiform discharges were noticed. The absence of epileptiform discharges does not rule out the diagnosis of epilepsy; therefore, clinical correlation is recommended.
== END 2016-11-28 17:00 | disposition home or self-care (01) | DRG 66 ==
LOC: EC 08:30 → 6SEL 11:52
PROVIDERS: ADMIT Family Medicine; ATTEND Family Medicine
DX: I63.9 Cerebral infarction, unspecified (principal); D69.6 Thrombocytopenia, unspecified; I11.9 Hypertensive heart disease without heart failure; E78.00 Pure hypercholesterolemia, unspecified; I16.0 Hypertensive urgency; R29.702 NIHSS score 2; R20.2 Paresthesia of skin; R29.810 Facial weakness; R07.89 Other chest pain; G47.33 Obstructive sleep apnea (adult) (pediatric); E03.9 Hypothyroidism, unspecified; R07.82 Intercostal pain; M79.622 Pain in left upper arm; M13.0 Polyarthritis, unspecified; R94.39 Abnormal result of other cardiovascular function study; M54.14 Radiculopathy, thoracic region; E78.5 Hyperlipidemia, unspecified; K21.9 Gastro-esophageal reflux disease without esophagitis; Z79.82 Long term (current) use of aspirin; Z87.442 Personal history of urinary calculi; Z87.891 Personal history of nicotine dependence; Z79.899 Other long term (current) drug therapy; Z82.49 Family history of ischemic heart disease and other diseases of the circulatory system; Z80.7 Family history of other malignant neoplasms of lymphoid, hematopoietic and related tissues; Z80.0 Family history of malignant neoplasm of digestive organs; Z90.710 Acquired absence of both cervix and uterus; Z90.49 Acquired absence of other specified parts of digestive tract; Z85.42 Personal history of malignant neoplasm of other parts of uterus; Z87.448 Personal history of other diseases of urinary system; Z86.69 Personal history of other diseases of the nervous system and sense organs
CPT/HCPCS: 36415; 70450; 70496; 70498; 71010; 80053; 80061; 83036; 83090; 83735; 84443; 84484; 85025; 85610; 85730; 93005; 93308; 93880; 95819; 96360; 99285

== ENCOUNTER 2016-12-01 09:30 | Emergency (ER) | payer MEDICARE ==
[2016-12-01] MEDS ORDERED: SODIUM CHLORIDE 0.9% 1,000 ML IV STA ×2 (10:04)
--- NOTE | 2016-12-01 10:34 | ED ---
General Adult HPI - General Chief complaint: Nausea/Vomiting/Diarrhea Stated complaint: NVD Time Seen by Provider: 12/01/16 09:45 Source: patient, EMS, RN notes reviewed, old records reviewed Mode of arrival: EMS Limitations: no limitations - History of Present Illness Initial comments: Patient is 66-year-old female who presents emergency room today with multiple complaints. She does admit that she recently diagnosed with CVA and was discharged home. She states that she woke up approximate 5:30 AM with some burning sensation to her chest and throat area. States she had some numbness tingling to the left arm. Doesn't that to some heart palpitations. She states she had mild headache. She states she had similar symptoms with recent CVA. She states that approximately an hour to an hour half later she began having upset stomach and had 3 episodes of very loose stool. Denies any signs of blood. Admits that she is having some abdominal discomfort. She states she called EMS to be brought here to emergency room after this. Patient states all the symptoms of burning sensation to the chest and throat along with numbness and tingling and headache [place]. Denies any palpitations currently. States still having some abdominal discomfort. Patient denies any recent fever , chills, shortness of breath, back pain, dysuria or hematuria, constipation or diarrhea, visual changes, or any other complaints. - Related Data Home Medications Medication Instructions Recorded Confirmed Multivitamins, Thera [Multivitamin] 1 tab PO DAILY 10/12/16 12/01/16 Omeprazole [PriLOSEC] 20 mg PO DAILY 10/12/16 12/01/16 Docusate [Colace] 100 mg PO Q8HR PRN 12/01/16 12/01/16 Previous Rx's Medication Instructions Recorded Atorvastatin [Lipitor] 20 mg PO DAILY #30 tab 10/13/16 Metoprolol Tartrate [Lopressor] 50 mg PO DAILY #30 tab 10/13/16 Aspirin 81 mg PO DAILY chew 11/28/16 Clopidogrel [Plavix] 75 mg PO DAILY #30 tab 11/28/16 Lisinopril [Zestril] 10 mg PO BID #60 tab 11/28/16 amLODIPine [Norvasc] 5 mg PO BID #60 tab 11/28/16 Allergies Allergy/AdvReac Type Severity Reaction Status Date / Time No Known Allergies Allergy Verified 12/01/16 09:53 Review of Systems ROS Statement: Those systems with pertinent positive or pertinent negative responses have been documented in the HPI. ROS Other: All systems not noted in ROS Statement are negative. Past Medical History Past Medical History: GERD/Reflux, Osteoarthritis (OA) Additional Past Medical History / Comment(s): Kidney Stones, STRESS TEST, USED TO TAKE MEDS FOR HIGH BLOOD PRESSURE AND THYROID BUT TAKEN OFF BOTH FEW YEARS AGO.KIDENY STONES, CURRENTLY TAKING ABX FOR RT EYE INFECTION D/T A SCRATCH. History of Any Multi-Drug Resistant Organisms: None Reported Past Surgical History: Cholecystectomy, Hysterectomy Additional Past Surgical History / Comment(s): Lithotripsy, basket retrieval of kidney stones, COLONOSCOPY Past Anesthesia/Blood Transfusion Reactions: No Reported Reaction Additional Past Anesthesia/Blood Transfusion Reaction / Comment(s): BLOOD TRANSUFSION WHEN HAVING HER CHILDREN-NO REACTIONS TO BLOOD. Past Psychological History: No Psychological Hx Reported Additional Psychological History / Comment(s): Pt resides with her spouse. She is independent. Smoking Status: Former smoker Past Alcohol Use History: Occasional Additional Past Alcohol Use History / Comment(s): STARTED SMOKING AT AGE 18 AND QUIT AT AGE 25 (LITE SMOKER) Past Drug Use History: None Reported - Past Family History Mother Family Medical History: Cancer Additional Family Medical History / Comment(s): HAD LYMPHOMA THEN 15 YEARS LATER HAD SMALL CELL CA(TOMACH) Father Family Medical History: Myocardial Infarction ([place]) Additional Family Medical History / Comment(s): PT WAS 9 YEARS OLD WHEN HER FATHER FROM MASSIVE [place]. Brother(s) Family Medical History: Coronary Artery Disease (CAD), Myocardial Infarction ([place] ) Additional Family Medical History / Comment(s): Pt had a 42 yrs old brother of a massive [place] and another brother who had CABG at the age of 39yrs. General Exam - General Exam Comments Initial Comments: General: The patient is awake and alert, in no distress, and does not appear acutely ill. Eye: Pupils are equal, round and reactive to light, extra-ocular movements are intact. No nystagmus. There is normal conjunctiva bilaterally. No signs of icterus. Ears, nose, mouth and throat: There are moist mucous membranes and no oral lesions. Neck: The neck is supple, there is no tenderness or JVD. Cardiovascular: There is a regular rate and rhythm. No murmur, rub or gallop is appreciated. Respiratory: Lungs are clear to auscultation, respirations are non-labored, breath sounds are equal. No wheezes, stridor, rales, or rhonchi. Gastrointestinal: Soft, non-distended, non-tender abdomen without masses or organomegaly noted. There is no rebound or guarding present. No CVA tenderness. Bowel sounds are unremarkable. Musculoskeletal: Normal ROM, no tenderness. Strength 5/5. Sensation intact. Pulses equal bilaterally 2+. Neurological: A&O x 3. CN II-XII intact, There are no obvious motor or sensory deficits. Coordination appears grossly intact. Speech is normal. Skin: Skin is warm and dry and no rashes or lesions are noted. Psychiatric: Cooperative, appropriate mood & affect, normal judgment. Limitations: no limitations Course Vital Signs 12/01/16 09:37 Temperature 97.4 F L Pulse Rate 91 Respiratory 20 Rate Blood Pressure 158/87 O2 Sat by Pulse 96 Oximetry - Reevaluation(s) Reevaluation #1: 12/01/16 10:34 Patient's past medical charts were reviewed. Shows that she presented with left -sided facial droop and numbness and tingling. Patient had a CAT scan along with a CT angiogram which were negative. Chest x-ray negative. Cardiac enzymes negative. Echocardiogram performed showing ejection fraction of 60-65% . Stress test also performed showing possibility of minimal stress-induced ischemia at the apex. Patient had so had a EEG by neurology. Patient at this time is asymptomatic a normal neurological exam. Patient admits to abdominal discomfort currently. Case was discussed in detail with attending physician Dr. Bailey, at this time. Patient has labs pending. Medical Decision Making - Medical Decision Making Case discussed in detail with attending physician Dr. Goss. Patient reexamined at this time shows no signs of distress. Patient states feeling much better here in the emergency room. Abdomen soft nontender. Denies any abdominal pain at this time. Has had no more diarrhea. Had 3 episodes at home. Patient does admit that she had the burning sensation to the back of the throat and chest area along with numbness and tingling to the left arm. States that she had a mild headache earlier today. States all the symptoms resolved prior to coming here to the hospital. She states no complaints at this time. Patient did have a full workup and was admitted for a CVA on November 25. Patient did have a CT CTA of the head. Patient did have echo cardiogram, EKG, stress test. Patient does have follow-up the family doctor. At this time she feels comfortable being discharged home. Patient is advised return to emergency room if any symptoms increase or worsen or for any other concerns. - Lab Data Result diagrams: 12/01/16 09:40 12/01/16 09:40 Lab Results 12/01/16 12/01/16 12/01/16 Range/Units 09:40 09:40 09:40 WBC 15.6 H (3.8-10.6) k/uL RBC 5.03 (3.80-5.40) m/uL Hgb 14.5 (11.4-16.0) gm/dL Hct 43.7 (34.0-46.0) % MCV 86.8 (80.0-100.0) fL MCH 28.8 (25.0-35.0) pg MCHC 33.2 (31.0-37.0) g/dL RDW 13.2 (11.5-15.5) % Plt Count 252 (150-450) k/uL Neutrophils % 89 % Lymphocytes % 5 % Monocytes % 4 % Eosinophils % 1 % Basophils % 1 % Neutrophils # 14.0 H (1.3-7.7) k/uL Lymphocytes # 0.8 L (1.0-4.8) k/uL Monocytes # 0.6 (0-1.0) k/uL Eosinophils # 0.1 (0-0.7) k/uL Basophils # 0.1 (0-0.2) k/uL PT (9.0-12.0) sec INR (<1.1) APTT (22.0-30.0) sec Sodium 143 (137-145) mmol/L Potassium 4.2 (3.5-5.1) mmol/L Chloride 103 (98-107) mmol/L Carbon Dioxide 27 (22-30) mmol/L Anion Gap 13 mmol/L BUN 15 (7-17) mg/dL Creatinine 0.60 (0.52-1.04) mg/dL Est GFR (MDRD) Af Amer >60 (>60 ml/min/1.73 sqM) Est GFR (MDRD) Non-Af >60 (>60 ml/min/1.73 sqM) Glucose 128 H (74-99) mg/dL Calcium 9.2 (8.4-10.2) mg/dL Magnesium 1.7 (1.6-2.3) mg/dL Total Bilirubin 0.8 (0.2-1.3) mg/dL AST 27 (14-36) U/L ALT 40 (9-52) U/L Alkaline Phosphatase 132 H (38-126) U/L Total Creatine Kinase 71 (30-135) U/L CK-MB (CK-2) 0.4 (0.0-2.4) ng/mL CK-MB (CK-2) Rel Index 0.6 Troponin I <0.012 (0.000-0.034) ng/mL Total Protein 7.4 (6.3-8.2) g/dL Albumin 4.5 (3.5-5.0) g/dL 12/01/16 Range/Units 09:40 WBC (3.8-10.6) k/uL RBC (3.80-5.40) m/uL Hgb (11.4-16.0) gm/dL Hct (34.0-46.0) % MCV (80.0-100.0) fL MCH (25.0-35.0) pg MCHC (31.0-37.0) g/dL RDW (11.5-15.5) % Plt Count (150-450) k/uL Neutrophils % % Lymphocytes % % Monocytes % % Eosinophils % % Basophils % % Neutrophils # (1.3-7.7) k/uL Lymphocytes # (1.0-4.8) k/uL Monocytes # (0-1.0) k/uL Eosinophils # (0-0.7) k/uL Basophils # (0-0.2) k/uL PT 10.6 (9.0-12.0) sec INR 1.0 (<1.1) APTT 20.6 L (22.0-30.0) sec Sodium (137-145) mmol/L Potassium (3.5-5.1) mmol/L Chloride (98-107) mmol/L Carbon Dioxide (22-30) mmol/L Anion Gap mmol/L BUN (7-17) mg/dL Creatinine (0.52-1.04) mg/dL Est GFR (MDRD) Af Amer (>60 ml/min/1.73 sqM) Est GFR (MDRD) Non-Af (>60 ml/min/1.73 sqM) Glucose (74-99) mg/dL Calcium (8.4-10.2) mg/dL Magnesium (1.6-2.3) mg/dL Total Bilirubin (0.2-1.3) mg/dL AST (14-36) U/L ALT (9-52) U/L Alkaline Phosphatase (38-126) U/L Total Creatine Kinase (30-135) U/L CK-MB (CK-2) (0.0-2.4) ng/mL CK-MB (CK-2) Rel Index Troponin I (0.000-0.034) ng/mL Total Protein (6.3-8.2) g/dL Albumin (3.5-5.0) g/dL Disposition Clinical Impression: Abdominal pain, Acute diarrhea, Paresthesia Disposition: HOME SELF-CARE Condition: Good Instructions: Abdominal Pain (ED) Additional Instructions: Please follow-up the family doctor over the next 1-2 days. Please return here to emergency room if any symptoms increase or worsen or for any concerns as discussed. Time of Disposition: 12:11
[2016-12-01 10:43] LABS: Basophils # (A) 0.1 k/uL (0-0.2); Basophils % (A) 1 %; CH 29.5; CHCM 34.2; Eosinophils # (A) 0.1 k/uL (0-0.7); Eosinophils % (A) 1 %; HCT 43.7 % (34.0-46.0); HDW 2.73; HGB 14.5 gm/dL (11.4-16.0); Luc # (Auto) 0.09; Luc % (Auto) 1; Lymphocytes # (A) 0.8 k/uL (1.0-4.8); Lymphocytes % (A) 5 %; MCH 28.8 pg (25.0-35.0); MCHC 33.2 g/dL (31.0-37.0); MCV 86.8 fL (80.0-100.0); Mean Platelet Volume 8.5; Monocytes # (A) 0.6 k/uL (0-1.0); Monocytes % (A) 4 %; Neutrophils % (A) 89 %; RBC 5.03 m/uL (3.80-5.40); RDW 13.2 % (11.5-15.5); WBC 15.6 k/uL (3.8-10.6); WBC (Perox) 15.91
[2016-12-01 11:02] LABS: ALT 40 U/L (9-52); AST 27 U/L (14-36); Alkaline Phosphatase 132 U/L (38-126); Anion Gap 13 mmol/L; Blood Urea Nitrogen 15 mg/dL (7-17); Calcium 9.2 mg/dL (8.4-10.2); Carbon Dioxide 27 mmol/L (22-30); Chloride 103 mmol/L (98-107); Glucose 128 mg/dL (74-99); Magnesium 1.7 mg/dL (1.6-2.3); Non-African American GFR(MDRD) >60 (>60 ml/min/1.73 sqM); Potassium 4.2 mmol/L (3.5-5.1); Sodium 143 mmol/L (137-145); Total Bilirubin 0.8 mg/dL (0.2-1.3); Total Protein 7.4 g/dL (6.3-8.2)
[2016-12-01 11:06] LABS: Prothrombin Time 10.6 sec (9.0-12.0)
[2016-12-01 11:14] LABS: Partial Thromboplastin Time 20.6 sec (22.0-30.0)
[2016-12-01 11:26] LABS: Creatine Kinase 71 U/L (30-135)
[2016-12-01 11:39] LABS: Creatine Kinase MB 0.4 ng/mL (0.0-2.4); Troponin I <0.012 ng/mL (0.000-0.034)
--- NOTE | 2016-12-01 12:18 | XR ---
EXAMINATION TYPE: XR KUB DATE OF EXAM: 12/01/2016 11:54 AM CLINICAL DATA: 66-year-old female with pain, diarrhea since this morning, [facility] COMPARISON: None FINDINGS: Lung bases are clear. No evidence for free intraperitoneal air. Cholecystectomy clips are present. Scattered small air-fluid levels throughout the colon. No significant stool burden seen. No dilated small bowel or small bowel air-fluid levels. No suspicious calcification seen. IMPRESSION: 1. Scattered small air-fluid levels throughout the colon. Findings suggest diffuse ileus or liquid st ool and enteritis. 2. No evidence of bowel obstruction or free intraperitoneal air.
[2016-12-01 12:42] VITALS: BP 149/69; PULSE 86; RESP 16; TEMP 98.8
[2016-12-01] MEDS ORDERED: ONDANSETRON 4 MG ODT STARTER PACK 2 TAB BTL PO STA (13:15)
== END 2016-12-01 12:52 | disposition home or self-care (01) ==
LOC: EC 09:30
DX: R10.9 Unspecified abdominal pain (principal); R19.7 Diarrhea, unspecified; R20.2 Paresthesia of skin; R20.8 Other disturbances of skin sensation; R20.0 Anesthesia of skin; R51 Headache; K21.9 Gastro-esophageal reflux disease without esophagitis; Z79.899 Other long term (current) drug therapy; Z87.891 Personal history of nicotine dependence; Z86.73 Personal history of transient ischemic attack (TIA), and cerebral infarction without residual deficits
CPT/HCPCS: 99285; 36415; 93005; 80053; 82550; 82553; 83735; 84484; 85025; 85610; 85730; 74000; 96360; 96361; S0119

== ENCOUNTER → 2016-12-06 | Outpatient (CLI) | payer MEDICARE ==
--- NOTE | 2016-12-06 22:49 | MR ---
EXAMINATION TYPE: MR brain wo/w con DATE OF EXAM: 12/06/2016 10:27 PM COMPARISON: CT brain studies November 28, 2016 and November 25, 2016. HISTORY: Unspecified transient cerebral ischemic attack recently per order. Presented with extreme bl ood pressure and numbness in face and mouth November 25, 2015. TECHNIQUE: Multiplanar, multisequence images of the brain and brainstem is performed without and with IV contras t, utilizing 20 mL intravenous MultiHance . FINDINGS: Diffusion weighted images demonstrate no evidence of a recent infarct or other diffusion ab normality. There is no worrisome extra-axial fluid collection. The ventricular system and cisternal spaces are normal in size and appearance. The brain volume is age appropriate. A few scattered foci of T2 hyperintensity are identified, less than 5 small lesions are likely present. Some artifact deg radation is noted. Midline structures demonstrate normal morphology. The craniocervical junction appears within normal limits. Post contrast images demonstrate no abnormal enhancement. The dural venous sinuses appear pa tent. The visualized sinuses are clear and the globes are intact. IMPRESSION: No evidence of a recent infarct. No significant finding is seen to account for patient's symptoms.
== END | disposition home or self-care (01) ==
LOC: RADMRIMAIN 21:23
PROVIDERS: ATTEND Family Medicine
DX: G45.9 Transient cerebral ischemic attack, unspecified (principal)
CPT/HCPCS: 70553

== ENCOUNTER → 2016-12-13 | Outpatient (CLI) | payer MEDICARE ==
--- NOTE | 2016-12-14 11:26 | MM ---
Reason for exam: screening (asymptomatic). History: Patient history of other cancer. Physical Findings: A clinical breast exam by your physician is recommended on an annual basis and results should be correlated with mammographic findings. MG 3D Screening Mammo W/Cad Bilateral CC and MLO view(s) were taken. No prior studies available for comparison. There are scattered fibroglandular densities. ASSESSMENT: Benign, BI-RAD 2 RECOMMENDATION: Routine screening mammogram of both breasts in 1 year.
== END | disposition home or self-care (01) ==
LOC: RADMAMWWP 14:59
PROVIDERS: ATTEND Family Medicine
DX: Z12.31 Encounter for screening mammogram for malignant neoplasm of breast (principal)
CPT/HCPCS: 77063; G0202

== ENCOUNTER → 2017-01-17 | Outpatient (CLI) | payer MEDICARE ==
--- NOTE | 2017-01-17 20:42 | CONS ---
DATE OF CONSULTATION: 01/17/2017 This 66-year-old female patient has features of PURVI, at the same time she has refractory difficult to control blood pressure. She is obese and she carries a BMI of 40.9. She snores and she wakes up at least 4 to 5 times in the middle of the night. No major hypersomnia or sleepiness during the day. Her Basco score is 6. She feels fatigued and tired and at times she takes a nap in the afternoon. She goes to bed around 11 p.m. and wakes up at 6 a.m. in the morning. She averages around 6 to 7 hours of sleep. On a few occasions she has woken up because of her loud snore and gasping for air. This is not a common occurrence for her. She wakes up with a dry mouth. No grinding of the teeth. No restlessness in lower extremities. PAST MEDICAL HISTORY: Obesity, hypertension, hyperlipidemia, kidney stones, GERD. PAST SURGICAL HISTORY: Hysterectomy, cholecystectomy, and lithotripsy. ALLERGIES: Drug allergies are not known. Outpatient medication list includes: 1. Metoprolol 50 daily. 2. Lisinopril 20 daily. 3. Lipitor 20 daily. 4. Amlodipine 5 mg p.o. daily. 5. Prilosec 20 daily. 6. Baby aspirin. 7. Plavix 75 mg p.o. daily. 8. Multivitamin 1 tablet a day. SOCIAL HISTORY: Nonsmoker. No history of alcohol. No history of IV drugs. FAMILY HISTORY: Noncontributory. REVIEW OF SYSTEMS: Twelve-point review of systems was done. Positive findings were all mentioned above in the history of present illness. BP is 159/81, pulse 76, respirations 16, temperature 97.2, saturation 99% on room air, weight is 231. Height is 5 foot 3. BMI is 40.9. Neck size 15-1/4. GENERAL APPEARANCE: Calm, comfortable. HEENT: Mallampati class IV. There is no goiter, neck mass. LUNGS: Diminished breath sounds; otherwise clear. HEART: Sounds are regular rate and rhythm. Normal S1, S2. No S3, S4 or murmurs. ABDOMEN: Soft, nontender. No organomegaly. EXTREMITIES: No edema, cyanosis, or clubbing. IMPRESSION: 1. Suspected obstructive sleep apnea, currently under investigation. 2. Loud snore. 3. Obesity, body mass index of 40.9. 4. Hypertension. Difficult to control on 3 different antihypertensive medications at this point. 5. Hyperlipidemia. 6. Nephrolithiasis. 7. Gastroesophageal reflux disease. PLAN: 1. Weight loss. 2. Blood pressure management. 3. Screening polysomnogram, looking for any significant obstructive sleep apnea contributing to blood pressure control. 4. We will continue to follow.
== END | disposition home or self-care (01) ==
LOC: SLEEP 15:32
PROVIDERS: ATTEND Internal Medicine Critical Care Medicine
DX: G47.33 Obstructive sleep apnea (adult) (pediatric) (principal); E66.9 Obesity, unspecified; Z68.41 Body mass index [BMI] 40.0-44.9, adult; I10 Essential (primary) hypertension; E78.5 Hyperlipidemia, unspecified; N20.0 Calculus of kidney; K21.9 Gastro-esophageal reflux disease without esophagitis; Z79.899 Other long term (current) drug therapy
CPT/HCPCS: 99211

== ENCOUNTER → 2017-06-13 | Outpatient (CLI) | payer MEDICARE ==
--- NOTE | 2017-06-14 08:39 | PN ---
This is a [facility] up [facility]. This patient is coming in for a compliancy check regarding obstructive sleep apnea. She is a 66-year-old female patient who was diagnosed with having severe PURVI with an AHI 35.7. She was given CPAP therapy at a pressure of 10 cm of water. She is benefiting from treatment. She is waking up much more alert and awake. Her nocturia has recovered. Sleep quality is improved. She is much more alert and she is not falling asleep during the day to day activities. As such the treatment has been successful. In terms of her compliance data, the use over the past 30 days has been relatively good with this patient achieving more than 4 hours of CPAP use 83% of the time. Average CPAP use is 5 hours and 37 minutes. Her AHI is down to 0.5 and leaks around the mask is around 1.2 liters per minute. She has no specific complaints. Snoring has recovered. She is trying to lose weight. She had incidence where she was hospitalized with hypertensive emergency. She apparently had a TIA. This occurred as the patient was having her medication adjusted by Cardiology Dr. Devlin. Currently the blood pressure is under good control and currently her blood pressure is 121/67. No headaches, no change in mental status. No chest pain. BP is 121/67, pulse 65, respirations 16, saturation 94% on room air. [place] score is at 2. Temperature is 98.1. Weight 233. GENERAL APPEARANCE: Calm, comfortable. HEENT: Crowding of the posterior pharynx. There is no goiter or neck masses. LUNGS: Clear to auscultation. HEART: Sounds are regular rate and rhythm. Normal S1, S2. ABDOMEN: Soft, nontender. No organomegaly. EXTREMITIES: No edema, cyanosis or clubbing. IMPRESSION: 1. Symptomatic obstructive sleep apnea with apnea-hypopnea index of 35. The patient is on successful CPAP therapy with pressure of 10. 2. Hypersomnia recovered. 3. Hypertension under better control. 4. Morbid obesity, body mass index of 40.9. 5. Hyperlipidemia. 6. Reflux. PLAN: Treatment is successful. Compliancy data was checked. No need for any adjustments. Continue the same treatment. Will continue to follow and see me back in a years time or earlier if needed. This is a successful treatment. The patient is benefiting from the treatment. DENAD
== END ==
LOC: SLEEP 16:01
PROVIDERS: ATTEND Internal Medicine Critical Care Medicine
DX: G47.33 Obstructive sleep apnea (adult) (pediatric) (principal); E66.01 Morbid (severe) obesity due to excess calories; E78.5 Hyperlipidemia, unspecified; I10 Essential (primary) hypertension; K21.9 Gastro-esophageal reflux disease without esophagitis; Z68.41 Body mass index [BMI] 40.0-44.9, adult

== ENCOUNTER → 2017-07-26 | Outpatient (CLI) | payer MEDICARE ==
[2017-07-26 13:37] LABS: Blood Urea Nitrogen 14 mg/dL (7-17); Non-African American GFR(MDRD) >60 (>60 ml/min/1.73 sqM)
--- NOTE | 2017-07-26 14:52 | CT ---
EXAMINATION TYPE: CT angio chest DATE OF EXAM: 07/26/2017 COMPARISON: NONE HISTORY: claudication CT DLP: 1060.60 mGycm CONTRAST: CTA thoracic aorta with 3-D reconstruction is performed and with IV Contrast, patient injected with 1 00 mL of Omnipaque 350. Contrast CTA of the thoracic aorta was performed from the lung apex through the upper abdomen. 3D re construction imaging obtained at a separate workstation. CT Chest: THORACIC AORTA: No evidence for thoracic aortic aneurysm. Mild atheromatous changes seen. There is n o evidence for dissection or periaortic collection. LUNGS: The lungs are clear and free of infiltrate or atelectasis. No pulmonary nodule or mass is det ected. No pleural effusion or CT evidence of interstitial lung disease. MEDIASTINUM: No evidence for mediastinal hematoma. The heart is mildly enlarged. No evidence for mediastinal mass or adenopathy. HILAR STRUCTURES: No evidence for mass. No hilar adenopathy is appreciated. OTHER: Mild hepatic steatosis. Cholecystectomy changes. Small sliding-type hiatal hernia. IMPRESSION- 1. Normal-appearing thoracic aorta.
== END | disposition home or self-care (01) ==
LOC: RADCTMAIN 12:28
PROVIDERS: ATTEND Family Medicine
DX: I73.9 Peripheral vascular disease, unspecified (principal)
CPT/HCPCS: 82565; 84520; 93922; 71275; 36415; Q9967

== ENCOUNTER → 2018-07-17 | Outpatient (CLI) | payer MEDICARE ==
--- NOTE | 2018-07-17 17:49 | PN ---
PROGRESS NOTE [facility] PROGRESS NOTE: This patient is coming in for an annual check regarding her PURVI treatment. She has severe PURVI with an AHI of 35 and currently she is on CPAP at a pressure of 10 cm of water. Her treatment remains successful over the past year. On today's evaluation she tells me that she was hospitalized at [facility] for an acute OR. She had an emergent cardiac catheterization and stenting of the RCA. During her hospital stay she also suffered a right-sided CVA. She is recovering. Fortunately her CPAP treatment has been successful throughout this time. Her weight has remained stable. She continues to benefit from CPAP therapy. She brought her CPAP machine and I checked the compliance data. She is averaging around 7.3 hours of CPAP use per night. Her AHI while on treatment is down to 0.2 with a leak factor of 18 L/minute. She needs her supplies to be renewed and refilled. REVIEW OF SYSTEMS: Twelve-point review of systems was done. No angina or chest pain at this point in time. She has some right facial weakness resulting from her recent stroke. No aspiration. No difficulty with swallowing. No seizure activity. No altered mentation. No cough or sputum production. No shortness of breath. PHYSICAL EXAMINATION: HER CURRENT VITALS: BP is 156/82, pulse 84, respirations 16, temperature 98.3, saturation 97% on room air. Height is 5 feet 3 inches. Weight is 233. BMI is 40.6. GENERAL APPEARANCE: Calm, comfortable. Head is atraumatic, normocephalic. NECK: Supple. No JVD. No goiter or neck masses. LUNGS: Diminished breath sounds bilaterally; otherwise clear. HEART: Heart sounds are regular rate and rhythm. Normal S1, S2. No S3, S4. No murmurs. ABDOMEN: Soft, nontender. No organomegaly. EXTREMITIES: No edema. No cyanosis or clubbing. NEUROLOGIC: Alert and oriented x3. There is no focal neurological deficit. PSYCHIATRIC: Negative for anxiety or depression. MEDICATION: 1. Lipitor. 2. Lisinopril. 3. Plavix. 4. Aspirin. IMPRESSION: 1. Severe obstructive sleep apnea with apnea/hypopnea index of 35, currently on CPAP at a pressure of 10. 2. Coronary artery disease with recent myocardial infarction requiring emergent stenting of right coronary artery. 3. Cerebrovascular accident, recovering. 4. Hypertension. 5. Obesity with a stable body weight. BMI is 40.9. 6. Hyperlipidemia. 7. History of acid reflux. PLAN: 1. Encourage weight loss. 2. Cardiac rehabilitation. 3. Continue CPAP therapy at the same level of pressure, which is 10 cm of water. 4. Treatment is successful. CPAP supplies will be renewed and the patient will see me back in a year's time, earlier if needed. JUAN / MICKY: [id number] /
== END ==
LOC: SLEEP 16:25
PROVIDERS: ATTEND Internal Medicine Critical Care Medicine
DX: G47.33 Obstructive sleep apnea (adult) (pediatric) (principal); I25.10 Atherosclerotic heart disease of native coronary artery without angina pectoris; I21.9 Acute myocardial infarction, unspecified; I63.9 Cerebral infarction, unspecified; I10 Essential (primary) hypertension; E66.9 Obesity, unspecified; E78.5 Hyperlipidemia, unspecified; K21.9 Gastro-esophageal reflux disease without esophagitis; Z68.41 Body mass index [BMI] 40.0-44.9, adult; Z99.89 Dependence on other enabling machines and devices; Z79.82 Long term (current) use of aspirin; Z79.899 Other long term (current) drug therapy

== ENCOUNTER → 2018-11-07 | Outpatient (CLI) | payer MEDICARE ==
--- NOTE | 2018-11-07 12:14 | CT ---
EXAMINATION TYPE: CT chest w con DATE OF EXAM: 11/07/2018 COMPARISON: 07/26/2017 HISTORY: abnormal chest xray (lung) CT DLP: 865 mGycm Automated exposure control for dose reduction was used. CONTRAST: CT scan of the chest is performed with IV Contrast, patient injected with 100 mL of Isovue 300. FINDINGS: LUNGS: The lungs are grossly clear, there is no concerning parenchymal mass or nodule identified. T here is no pleural effusion or pneumothorax seen. The tracheobronchial tree is patent. Minimal groun dglass changes posteriorly likely related to dependent atelectasis superior segment right lower lobe. Pleural-based thickening along the left upper lobe posteriorly too small to characterize. MEDIASTINUM: There are no greater than 1 cm hilar or mediastinal lymph nodes. No pericardial effusi on is seen. Coronary artery calcification noted. Atherosclerotic change aorta. OTHER: Mild hepatic steatosis. Cholecystectomy changes. Small hiatal hernia. Hypertrophic and degen erative change of the vertebral column. IMPRESSION: 1. No acute process. 2. Coronary artery calcification. 3. Mild hepatic steatosis. 4. Small hiatal hernia appears relatively stable relative the prior exam. Correlate with upper GI or direct visualization as clinically warranted.
== END | disposition home or self-care (01) ==
LOC: RADCTMAIN 10:48
PROVIDERS: ATTEND Family Medicine
DX: I25.10 Atherosclerotic heart disease of native coronary artery without angina pectoris (principal); K44.9 Diaphragmatic hernia without obstruction or gangrene; R91.8 Other nonspecific abnormal finding of lung field
CPT/HCPCS: 82565; 84520; 71260; 36415; Q9967

== ENCOUNTER 2019-01-30 09:40 | Inpatient (IN) | payer MEDICARE ==
[2019-01-30] MEDS ORDERED: DOCUSATE 100 MG CAP PO PRN (12:38)
[2019-01-30] MEDS ORDERED: ONDANSETRON ODT 4 MG TAB PO PRN (12:38)
[2019-01-30] MEDS ORDERED: HYDROmorphone 0.5 MG/0.5 ML SYRINGE IVP PRN (12:47)
[2019-01-30] MEDS: HYDROcodone/APAP 7.5-325MG 1 EACH TAB PO PRN ×2 (13:05→18:05)
[2019-01-30 13:25] LABS: Basophils % (A) 1 %; Eosinophils # (A) 0.1 k/uL (0-0.7); Eosinophils % (A) 1 %; HCT 36.5 % (34.0-46.0); HGB 11.9 gm/dL (11.4-16.0); Lymphocytes # (A) 1.8 k/uL (1.0-4.8); Lymphocytes % (A) 21 %; MCH 27.9 pg (25.0-35.0); MCHC 32.6 g/dL (31.0-37.0); MCV 85.5 fL (80.0-100.0); Monocytes # (A) 0.4 k/uL (0-1.0); Monocytes % (A) 5 %; Neutrophils # (A) 5.9 k/uL (1.3-7.7); Neutrophils % (A) 71 %; Platelet Count 249 k/uL (150-450); RBC 4.27 m/uL (3.80-5.40); RDW 14.4 % (11.5-15.5); WBC 8.4 k/uL (3.8-10.6)
[2019-01-30 13:39] LABS: Albumin 4.1 g/dL (3.5-5.0); Calcium 9.1 mg/dL (8.4-10.2); Potassium 4.5 mmol/L (3.5-5.1); Total Bilirubin 0.5 mg/dL (0.2-1.3); Total Protein 7.1 g/dL (6.3-8.2)
[2019-01-30 13:50] LABS: D-Dimer 0.31 mg/L FEU (<0.60); Prothrombin Time 10.4 sec (9.0-12.0)
--- NOTE | 2019-01-30 13:53 | XR ---
EXAMINATION TYPE: XR chest 2V DATE OF EXAM: 01/30/2019 COMPARISON: 11/07/2018 TECHNIQUE: PA and lateral views submitted. HISTORY: Asthma FINDINGS: The lungs are clear and there is no pneumothorax, pleural effusion, or focal pneumonia. Arthropathy of the AC joints. Hypertrophic change of the spine. IMPRESSION: 1. No acute process.
[2019-01-30 15:32] LABS: Appearance,Urine Clear (Clear); Bacteria,Urine Rare /hpf; Bilirubin,Urine Negative (Negative); Blood,Urine Negative (Negative); Color,Urine Light Yellow; Glucose,Urine (UA) Negative (Negative); Hyaline Casts,Urine 1 /lpf (0-2); Ketones,Urine Negative (Negative); Leukocyte Esterase,Urine Small (Negative); Mucus,Urine Rare /hpf; Nitrite,Urine Negative (Negative); Protein,Urine Negative (Negative); RBC,Urine 1 /hpf (0-5); Specific Gravity,Urine 1.005 (1.001-1.035); Squamous Epithelial Cell,Urine 1 /hpf (0-4); Urobilinogen,Urine <2.0 mg/dL (<2.0); WBC,Urine 2 /hpf (0-5)
--- NOTE | 2019-01-30 17:00 | CT ---
EXAMINATION TYPE: CT abdomen pelvis wo con DATE OF EXAM: 01/30/2019 COMPARISON: None INDICATION: Renal colic and LLQ pain; History of renal stones DLP: 1111.4 mGycm, Automated exposure control for dose reduction was used. CONTRAST: 0 mL of Isovue 300. Study performed without Oral Contrast TECHNIQUE: Axial images were obtained from above the diaphragm to the pubic rami in the axial plane a t 5 mm thick sections. Reconstructed images are reviewed on the computer in the coronal plane. FINDINGS: Limited CT sections are obtained the lung bases. The lung bases are clear. Coronary artery calcific ation is present. CT ABDOMEN: Liver: Normal Spleen: Normal Pancreas: Normal Adrenal glands: The adrenal glands are normal. Gallbladder: Surgically absent Kidneys: No masses are evident. No hydronephrosis is present. No cysts are present. No renal stone s are evident. No ureteral stones are identified. Aorta: Vascular calcification is within the aorta. Inferior vena cava: Normal. CT PELVIS: There is a diverticulum within the distal descending colon. Some mild inflammatory changes adjacent. A mild diverticulitis could be present. Correlate with the location of the patient's symptoms. Series 201 image 64. Study is performed without oral contrast limiting bowel evaluation. Appendix: Normal as visualized. Urinary bladder: Decompressed and cannot be evaluated Genitourinary structures: Uterus is absent. Adnexal regions are clear. Osseous structures: No suspicious lytic or sclerotic lesions. IMPRESSIONS: 1. Mild acute diverticulitis descending colon sigmoid colon junction left lower quadrant.
[2019-01-30] MEDS: SODIUM CHLORIDE 0.9% 1,000 ML IV SCH (17:56)
[2019-01-30] MEDS: BUDESONIDE 0.5 MG/2 ML NEBU INHALATION SCH (19:36)
[2019-01-30] MEDS: amLODIPine 5 MG TAB PO SCH (20:40)
[2019-01-30] MEDS: LISINOPRIL 10 MG TAB PO SCH (20:40)
[2019-01-31] MEDS: SODIUM CHLORIDE 0.9% 1,000 ML IV SCH ×2 (04:18→17:43)
[2019-01-31] MEDS: METOPROLOL TARTRATE 50 MG TAB PO SCH (07:49)
[2019-01-31] MEDS: PANTOPRAZOLE 40 MG TABLET PO SCH (07:49)
[2019-01-31] MEDS: CLOPIDOGREL 75 MG TAB PO SCH (07:49)
[2019-01-31] MEDS: ATORVASTATIN 20 MG TAB PO SCH (07:49)
[2019-01-31] MEDS: ASPIRIN 81 MG PO SCH (07:49)
[2019-01-31] MEDS: LISINOPRIL 10 MG TAB PO SCH ×2 (07:49→20:16)
[2019-01-31] MEDS: amLODIPine 5 MG TAB PO SCH ×2 (07:50→20:16)
[2019-01-31] MEDS: BUDESONIDE 0.5 MG/2 ML NEBU INHALATION SCH ×2 (09:14→21:39)
[2019-01-31] MEDS ORDERED: LEVOFLOXACIN 750MG-D5W PMX 750 MG in DEXTROSE/WATER 1 150ML.BAG IVPB SCH (11:00)
--- NOTE | 2019-01-31 11:00 | CT ---
EXAMINATION TYPE: CT lumbar spine w con DATE OF EXAM: 01/31/2019 COMPARISON: None HISTORY: 68-year-old female with sciatica, Low back pain TECHNIQUE: Contiguous axial scanning of the lumbar spine performed with IV Contrast, patient injected with 100 mL of Isovue 300. Delayed images through the kidneys were obtained. Coronal/sagittal recons tructions performed. CT DLP: 1471.4 mGycm Automated exposure control for dose reduction was used. FINDINGS: Tiny hiatal hernia. Slight 1.2 cm nodular thickening left adrenal gland likely represents an underlyi ng adrenal adenoma. Cholecystectomy clips are present. Moderate to advanced degenerative disc disease from L3 through L5 levels with disc height loss, disc vacuum, and scattered discussed by complex formation and disc bulging. Hypertrophic facet arthropathy throughout. Vertebral body heights are preserved and alignment is maintained. At T12-L1, no spinal canal or foraminal stenosis. At L1-L2, mild facet arthropathy. No significant canal or foraminal stenosis. At L2-L3, there is central disc osteophyte complex and may contribute to moderate narrowing of the sp inal canal. There is facet degenerative changes well with minimal bilateral inferior neuroforaminal n arrowing. At L3-L4, there is a broad-based disc osteophyte complex with hypertrophic facet arthropathy. Changes may result in a moderate spinal canal stenosis. There is [id number] right and possibly severe left neuroforaminal stenosis. At L4-L5, diffuse disc bulge slightly eccentric towards the right. There is mild spinal canal stenosi s. Along with hypertrophic facet arthropathy, there is possibly severe right and moderate left neurof oraminal stenosis. At L5-S1, is disc bulge and facet arthropathy. Changes result in mild bilateral neuroforaminal stenos is. IMPRESSION: 1. MODERATE TO ADVANCED DEGENERATIVE DISC DISEASE FROM L3 THROUGH L5 LEVELS ALONG WITH HYPERTROPHIC F ACET ARTHROPATHY. 2. NO VERTEBRAL COMPRESSION COLLAPSE OR MALALIGNMENT. 3. DISC OSTEOPHYTE COMPLEXES AT L2-L3 AND L3-L4 CAUSE MODERATE SPINAL CANAL STENOSIS. DISC BULGE AT L 4-L5 CAUSES MILD SPINAL CANAL STENOSIS. 4. AT L3-L4, THERE IS SEVERE LEFT AND [id number] RIGHT NEUROFORAMINAL STENOSIS. 5. AT L4-L5, THERE IS SEVERE RIGHT AND MODERATE LEFT NEURAL FORAMINAL STENOSIS.
[2019-01-31] MEDS: MULTIVITAMINS, THERA 1 EACH TAB PO SCH (11:47)
[2019-01-31] MEDS: PIPERACILLIN-TAZOBACTAM 3.375 GM in SODIUM CHLORIDE 0.9% 100 ML IVPB SCH ×3 (11:49→23:29)
--- NOTE | 2019-01-31 12:15 | P.GSCN ---
History of Present Illness Consult date: 01/31/19 Reason for Consult: LLQ abdominal pain Requesting physician: Nakul Aburto History of present illness: CHIEF COMPLAINT: Abdominal pain HISTORY OF PRESENT ILLNESS: 68-year-old female who was directly admitted to the hospital yesterday from Dr. Aburto's office. General surgery was consulted for further evaluation of abdominal pain. Patient reports left lower quadrant pain over the past few days. She states she took some Tylenol at home and that helped her symptoms some, but did not completely take it away. She reports her pain this morning is improved and currently rates it 11/08. Denies nausea or vomiting. Tolerating full liquid diet. PAST MEDICAL HISTORY: See list. PAST SURGICAL HISTORY: See list. SOCIAL HISTORY: No illicit drug use. REVIEW OF SYSTEMS: CONSTITUTIONAL: Denies fever or chills. HEENT: Denies blurred vision, vision changes, or eye pain. Denies hemoptysis CARDIOVASCULAR: Denies chest pain or pressure. RESPIRATORY: No shortness of breath. GASTROINTESTINAL: Refer to HPI for pertinent findings HEMATOLOGIC: Denies bleeding disorders. GENITOURINARY: Denies any blood in urine. SKIN: Denies pruitis. Denies rash. PHYSICAL EXAM: VITAL SIGNS: Reviewed. GENERAL: Well-developed in no acute distress. HEENT: No sclera icterus. Extraocular movements grossly intact. Moist buccal mucosa. Head is atraumatic, normocephalic. ABDOMEN: Soft. Nondistended. Mild tenderness upon palpation of left lower quadrant. NEUROLOGIC: Alert and oriented. Cranial nerves II through XII grossly intact. IMAGING: CT abdomen and pelvis: Mild acute diverticulitis descending colon and sigmoid colon junction left lower quadrant ASSESSMENT: 1. Left lower quadrant abdominal pain 2. Acute diverticulitis PLAN: 1. Continue full liquid diet 2. Begin Zosyn 3. Patient will require outpatient colonoscopy in 4-6 weeks 4. Patient may follow up with Dr. Lim in 1 week post discharge Nurse practitioner note has been reviewed by physician. Signing provider agrees with the documented findings, assessment, and plan of care. Past Medical History Past Medical History: GERD/Reflux, Hyperlipidemia, Osteoarthritis (OA) Additional Past Medical History / Comment(s): Kidney Stones, STRESS TEST, USED TO TAKE MEDS FOR HIGH BLOOD PRESSURE AND THYROID BUT TAKEN OFF BOTH FEW YEARS AGO.KIDENY STONES, CURRENTLY TAKING ABX FOR RT EYE INFECTION D/T A SCRATCH.HEART ATTACK JUN 28, 2018 C PAP History of Any Multi-Drug Resistant Organisms: None Reported Past Surgical History: Cholecystectomy, Hysterectomy Additional Past Surgical History / Comment(s): Lithotripsy, basket retrieval of kidney stones, COLONOSCOPY Past Anesthesia/Blood Transfusion Reactions: No Reported Reaction Additional Past Anesthesia/Blood Transfusion Reaction / Comm: BLOOD TRANSUFSION WHEN HAVING HER CHILDREN-NO REACTIONS TO BLOOD. Past Psychological History: No Psychological Hx Reported Additional Psychological History / Comment(s): Pt resides with her spouse. She is independent. Smoking Status: Former smoker Past Alcohol Use History: Occasional Additional Past Alcohol Use History / Comment(s): STARTED SMOKING AT AGE 18 AND QUIT AT AGE 25 (LITE SMOKER) Past Drug Use History: None Reported - Past Family History Mother Family Medical History: Cancer Additional Family Medical History / Comment(s): HAD LYMPHOMA THEN 15 YEARS LATER HAD SMALL CELL CA(TOMACH) Father Family Medical History: Myocardial Infarction (MO) Additional Family Medical History / Comment(s): PT WAS 9 YEARS OLD WHEN HER FATHER FROM MASSIVE MO. Brother(s) Family Medical History: Coronary Artery Disease (CAD), Myocardial Infarction (MO) Additional Family Medical History / Comment(s): Pt had a 42 yrs old brother of a massive [place] and another brother who had CABG at the age of 39yrs. Medications and Allergies Home Medications Medication Instructions Recorded Confirmed Type Multivitamins, Thera [Multivitamin 1 tab PO DAILY 10/12/16 01/30/19 History (formulary)] Omeprazole [PriLOSEC] 20 mg PO DAILY 10/12/16 01/30/19 History Atorvastatin [Lipitor] 20 mg PO DAILY #30 tab 10/13/16 01/30/19 Rx Metoprolol Tartrate [Lopressor] 50 mg PO DAILY #30 tab 10/13/16 01/30/19 Rx Aspirin 81 mg PO DAILY chew 11/28/16 01/30/19 Rx Clopidogrel [Plavix] 75 mg PO DAILY #30 tab 11/28/16 01/30/19 Rx Lisinopril [Zestril] 10 mg PO BID #60 tab 11/28/16 01/30/19 Rx amLODIPine [Norvasc] 5 mg PO BID #60 tab 11/28/16 01/30/19 Rx Docusate [Colace] 100 mg PO Q8HR PRN 12/01/16 01/30/19 History Ondansetron Odt [Zofran ODT] 4 mg PO Q8HR PRN #15 tab 12/01/16 01/30/19 Rx Allergies Allergy/AdvReac Type Severity Reaction Status Date / Time No Known Allergies Allergy Verified 12/01/16 09:53 Surgical - Exam Vital Signs Temp Pulse Resp BP Pulse Ox 98.1 F 89 15 129/78 96 01/30/19 10:30 01/30/19 10:30 01/30/19 10:30 01/30/19 10:30 01/30/19 10:30 Results - Labs 01/30/19 12:56 01/30/19 12:56 Abnormal Lab Results - Last 24 Hours (Table) 01/30/19 01/30/19 Range/Units 12:56 15:27 Glucose 106 H (74-99) mg/dL Ur Leukocyte Esterase Small H (Negative) Urine Bacteria Rare H (None) /hpf Urine Mucus Rare H (None) /hpf Microbiology - Last 24 Hours (Table) 01/30/19 15:27 Urine Culture - Preliminary Urine,Clean Catch Diabetes panel 01/30/19 Range/Units 12:56 Sodium 142 (137-145) mmol/L Potassium 4.5 (3.5-5.1) mmol/L Chloride 106 (98-107) mmol/L Carbon Dioxide 28 (22-30) mmol/L BUN 11 (7-17) mg/dL Creatinine 0.84 (0.52-1.04) mg/dL Glucose 106 H (74-99) mg/dL Calcium 9.1 (8.4-10.2) mg/dL AST 18 (14-36) U/L ALT 34 (9-52) U/L Alkaline Phosphatase 119 (38-126) U/L Total Protein 7.1 (6.3-8.2) g/dL Albumin 4.1 (3.5-5.0) g/dL Thyroid panel 01/30/19 Range/Units 12:56 TSH 2.900 (0.465-4.680) mIU/L Calcium panel 01/30/19 Range/Units 12:56 Calcium 9.1 (8.4-10.2) mg/dL Albumin 4.1 (3.5-5.0) g/dL Pituitary panel 01/30/19 Range/Units 12:56 Sodium 142 (137-145) mmol/L Potassium 4.5 (3.5-5.1) mmol/L Chloride 106 (98-107) mmol/L Carbon Dioxide 28 (22-30) mmol/L BUN 11 (7-17) mg/dL Creatinine 0.84 (0.52-1.04) mg/dL Glucose 106 H (74-99) mg/dL Calcium 9.1 (8.4-10.2) mg/dL TSH 2.900 (0.465-4.680) mIU/L Adrenal panel 01/30/19 Range/Units 12:56 Sodium 142 (137-145) mmol/L Potassium 4.5 (3.5-5.1) mmol/L Chloride 106 (98-107) mmol/L Carbon Dioxide 28 (22-30) mmol/L BUN 11 (7-17) mg/dL Creatinine 0.84 (0.52-1.04) mg/dL Glucose 106 H (74-99) mg/dL Calcium 9.1 (8.4-10.2) mg/dL Total Bilirubin 0.5 (0.2-1.3) mg/dL AST 18 (14-36) U/L ALT 34 (9-52) U/L Alkaline Phosphatase 119 (38-126) U/L Total Protein 7.1 (6.3-8.2) g/dL Albumin 4.1 (3.5-5.0) g/dL
--- NOTE | 2019-01-31 12:36 | PN ---
PROGRESS NOTE SUBJECTIVE: A 68-year-old white female who comes in the hospital with significant left lower quadrant abdominal pain and back pain, with severe stenosis in her lumbar spine. Consultation for an epidural shot is being done at this time. She has acute diverticulitis of the left lower quadrant per surgeon. She remains on bowel rest at this time and Zosyn. Possibly be discharged and diet will be advanced within the next couple days after an epidural injection is going to be done. Lungs are clear. CARDIOVASCULAR: S1, S2. ENDOCRINE: Tenderness to palpation over the left lower quadrant abdomen. Vital signs reviewed. Pulse 56 2, temp 98.2, blood pressure 119 to 169/60s to 70s, 95% on room air, pulse is 68-74. Continue current treatment, follow up in the next 24 to 48 hours for possible discharge after epidural injection is done. Continue with IV Zosyn. MMJULIANAL / WICHON: [id number] /
--- NOTE | 2019-01-31 13:20 | P.GSCN ---
History of Present Illness Consult date: 01/31/19 History of present illness: This is a 68-year-old female who was admitted the hospital yesterday by Dr. Nakul Aburto because of left lower quadrant low back and right flank pain. This patient has a known history of stones and has passed several in the past as well as having what sounds like shockwave lithotripsy and ureteroscopic manipulation. She has seen my partner in the past. I am seeing her in his absence as he is unavailable. The patient's last stone was some 3 years ago. By today her flank pain is gone. She has not had any hematuria or debris in her urine. She had a CAT scan of the abdomen and pelvis that did not show any evidence of stone bilaterally. There is no evidence of hydronephrosis either. The computed tomography scan suggested diverticulitis. Gen. surgery is in consult with the patient. He is no voiding issues. Review of Systems All systems: negative - Gastrointestinal Reports as per HPI - Genitourinary Genitourinary: Reports as per HPI Past Medical History Past Medical History: GERD/Reflux, Hyperlipidemia, Osteoarthritis (OA) Additional Past Medical History / Comment(s): Kidney Stones, STRESS TEST, USED TO TAKE MEDS FOR HIGH BLOOD PRESSURE AND THYROID BUT TAKEN OFF BOTH FEW YEARS AGO.KIDENY STONES, CURRENTLY TAKING ABX FOR RT EYE INFECTION D/T A SCRATCH.HEART ATTACK JUN 28, 2018 C PAP History of Any Multi-Drug Resistant Organisms: None Reported Past Surgical History: Cholecystectomy, Hysterectomy Additional Past Surgical History / Comment(s): Lithotripsy, basket retrieval of kidney stones, COLONOSCOPY Past Anesthesia/Blood Transfusion Reactions: No Reported Reaction Additional Past Anesthesia/Blood Transfusion Reaction / Comm: BLOOD TRANSUFSION WHEN HAVING HER CHILDREN-NO REACTIONS TO BLOOD. Past Psychological History: No Psychological Hx Reported Additional Psychological History / Comment(s): Pt resides with her spouse. She is independent. Smoking Status: Former smoker Past Alcohol Use History: Occasional Additional Past Alcohol Use History / Comment(s): STARTED SMOKING AT AGE 18 AND QUIT AT AGE 25 (LITE SMOKER) Past Drug Use History: None Reported - Past Family History Mother Family Medical History: Cancer Additional Family Medical History / Comment(s): HAD LYMPHOMA THEN 15 YEARS LATER HAD SMALL CELL CA(TOMACH) Father Family Medical History: Myocardial Infarction ([place]) Additional Family Medical History / Comment(s): PT WAS 11 YEARS OLD WHEN HER FATHER FROM MASSIVE [place]. Brother(s) Family Medical History: Coronary Artery Disease (CAD), Myocardial Infarction ([place]) Additional Family Medical History / Comment(s): Pt had a 42 yrs old brother of a massive [place] and another brother who had CABG at the age of 39yrs. Medications and Allergies Home Medications Medication Instructions Recorded Confirmed Type Multivitamins, Thera [Multivitamin 1 tab PO DAILY 10/12/16 01/30/19 History (formulary)] Omeprazole [PriLOSEC] 20 mg PO DAILY 10/12/16 01/30/19 History Atorvastatin [Lipitor] 20 mg PO DAILY #30 tab 10/13/16 01/30/19 Rx Metoprolol Tartrate [Lopressor] 50 mg PO DAILY #30 tab 10/13/16 01/30/19 Rx Aspirin 81 mg PO DAILY chew 11/28/16 01/30/19 Rx Clopidogrel [Plavix] 75 mg PO DAILY #30 tab 11/28/16 01/30/19 Rx Lisinopril [Zestril] 10 mg PO BID #60 tab 11/28/16 01/30/19 Rx amLODIPine [Norvasc] 5 mg PO BID #60 tab 11/28/16 01/30/19 Rx Docusate [Colace] 100 mg PO Q8HR PRN 12/01/16 01/30/19 History Ondansetron Odt [Zofran ODT] 4 mg PO Q8HR PRN #15 tab 12/01/16 01/30/19 Rx Allergies Allergy/AdvReac Type Severity Reaction Status Date / Time No Known Allergies Allergy Verified 12/01/16 09:53 Surgical - Exam Vital Signs Temp Pulse Resp BP Pulse Ox 98.1 F 89 15 129/78 96 01/30/19 10:30 01/30/19 10:30 01/30/19 10:30 01/30/19 10:30 01/30/19 10:30 - General well developed, well nourished, obese - Eyes PERRL - ENT no hearing loss - Neck trachea midline - Respiratory normal expansion, normal respiratory effort - Cardiovascular Rhythm: regular - Abdomen Abdomen: soft, non tender - Integumentary no rash - Neurologic normal coordination, normal sensation - Musculoskeletal normal gait, normal posture - Psychiatric oriented to time, oriented to person, oriented to place, speech is normal, memory intact Results - Labs 01/30/19 12:56 01/30/19 12:56 Abnormal Lab Results - Last 24 Hours (Table) 01/30/19 01/30/19 Range/Units 12:56 15:27 Glucose 106 H (74-99) mg/dL Ur Leukocyte Esterase Small H (Negative) Urine Bacteria Rare H (None) /hpf Urine Mucus Rare H (None) /hpf Microbiology - Last 24 Hours (Table) 01/30/19 15:27 Urine Culture - Preliminary Urine,Clean Catch Diabetes panel 01/30/19 Range/Units 12:56 Sodium 142 (137-145) mmol/L Potassium 4.5 (3.5-5.1) mmol/L Chloride 106 (98-107) mmol/L Carbon Dioxide 28 (22-30) mmol/L BUN 11 (7-17) mg/dL Creatinine 0.84 (0.52-1.04) mg/dL Glucose 106 H (74-99) mg/dL Calcium 9.1 (8.4-10.2) mg/dL AST 18 (14-36) U/L ALT 34 (9-52) U/L Alkaline Phosphatase 119 (38-126) U/L Total Protein 7.1 (6.3-8.2) g/dL Albumin 4.1 (3.5-5.0) g/dL Thyroid panel 01/30/19 Range/Units 12:56 TSH 2.900 (0.465-4.680) mIU/L Calcium panel 01/30/19 Range/Units 12:56 Calcium 9.1 (8.4-10.2) mg/dL Albumin 4.1 (3.5-5.0) g/dL Pituitary panel 01/30/19 Range/Units 12:56 Sodium 142 (137-145) mmol/L Potassium 4.5 (3.5-5.1) mmol/L Chloride 106 (98-107) mmol/L Carbon Dioxide 28 (22-30) mmol/L BUN 11 (7-17) mg/dL Creatinine 0.84 (0.52-1.04) mg/dL Glucose 106 H (74-99) mg/dL Calcium 9.1 (8.4-10.2) mg/dL TSH 2.900 (0.465-4.680) mIU/L Adrenal panel 01/30/19 Range/Units 12:56 Sodium 142 (137-145) mmol/L Potassium 4.5 (3.5-5.1) mmol/L Chloride 106 (98-107) mmol/L Carbon Dioxide 28 (22-30) mmol/L BUN 11 (7-17) mg/dL Creatinine 0.84 (0.52-1.04) mg/dL Glucose 106 H (74-99) mg/dL Calcium 9.1 (8.4-10.2) mg/dL Total Bilirubin 0.5 (0.2-1.3) mg/dL AST 18 (14-36) U/L ALT 34 (9-52) U/L Alkaline Phosphatase 119 (38-126) U/L Total Protein 7.1 (6.3-8.2) g/dL Albumin 4.1 (3.5-5.0) g/dL - Imaging CT scan - abdomen: report reviewed, image reviewed CT scan - pelvis: report reviewed, image reviewed Assessment and Plan Assessment: Impression: Back pain, right flank, resolved. History kidney stones. Diverticulitis. Recommendations: Based on the CAT scan there was no distinct stone seen yesterday. Whether she passed a real tiny stone that was not identified on the CAT scan or whether her back pain is related to her other discomforts is indeterminate. At this point in time there are no further urologic recommendations.
--- NOTE | 2019-01-31 15:04 | P.PAINCN ---
History of Present Illness - Reason for Consult Consult date: 01/31/19 - History of Present Illness Ms. Mohan 68-year-old female presents to the hospital for lower abdominal pain. She reports she's had chronic abdominal pain and chronic back pain. She seen a pain physician for her back for many years but has stopped going to the doctor in the p.m. She reports that she's had spinal stenosis with lower back pain and radicular symptoms down both legs. She reports that back pain signifi cantly worse with standing for long periods time and try to walk for long periods of time. She feels that this pain alters her life. She does not feel that her back pain is well brought into the hospital on today's visit. She does not use any medications. She occasionally uses Tylenol. She reports she has chronic kidney stones. At this point she feels back pain going down her legs with standing for long periods of time. She does not have any significant leg pain well sitting down. She has pain with extension and flexion of the lumbar spine. As well as with lateral sidebending. She denies any bowel or bladder incontinence. Past Medical History Past Medical History: GERD/Reflux, Hyperlipidemia, Osteoarthritis (OA) Additional Past Medical History / Comment(s): Kidney Stones, STRESS TEST, USED TO TAKE MEDS FOR HIGH BLOOD PRESSURE AND THYROID BUT TAKEN OFF BOTH FEW YEARS AGO.KIDENY STONES, CURRENTLY TAKING ABX FOR RT EYE INFECTION D/T A SCRATCH.HEART ATTACK JUN 28, 2018 C PAP History of Any Multi-Drug Resistant Organisms: None Reported Past Surgical History: Cholecystectomy, Hysterectomy Additional Past Surgical History / Comment(s): Lithotripsy, basket retrieval of kidney stones, COLONOSCOPY Past Anesthesia/Blood Transfusion Reactions: No Reported Reaction Additional Past Anesthesia/Blood Transfusion Reaction / Comm: BLOOD TRANSUFSION WHEN HAVING HER CHILDREN-NO REACTIONS TO BLOOD. Past Psychological History: No Psychological Hx Reported Additional Psychological History / Comment(s): Pt resides with her spouse. She is independent. Smoking Status: Former smoker Past Alcohol Use History: Occasional Additional Past Alcohol Use History / Comment(s): STARTED SMOKING AT AGE 18 AND QUIT AT AGE 25 (LITE SMOKER) Past Drug Use History: None Reported - Past Family History Mother Family Medical History: Cancer Additional Family Medical History / Comment(s): HAD LYMPHOMA THEN 15 YEARS LATER HAD SMALL CELL CA(TOMACH) Father Family Medical History: Myocardial Infarction ([place]) Additional Family Medical History / Comment(s): PT WAS 11 YEARS OLD WHEN HER FATHER FROM MASSIVE [place]. Brother(s) Family Medical History: Coronary Artery Disease (CAD), Myocardial Infarction ([place]) Additional Family Medical History / Comment(s): Pt had a 42 yrs old brother of a massive [place] and another brother who had CABG at the age of 39yrs. Medications and Allergies Home Medications Medication Instructions Recorded Confirmed Type Multivitamins, Thera [Multivitamin 1 tab PO DAILY 10/12/16 01/30/19 History (formulary)] Omeprazole [PriLOSEC] 20 mg PO DAILY 10/12/16 01/30/19 History Atorvastatin [Lipitor] 20 mg PO DAILY #30 tab 10/13/16 01/30/19 Rx Metoprolol Tartrate [Lopressor] 50 mg PO DAILY #30 tab 10/13/16 01/30/19 Rx Aspirin 81 mg PO DAILY chew 11/28/16 01/30/19 Rx Clopidogrel [Plavix] 75 mg PO DAILY #30 tab 11/28/16 01/30/19 Rx Lisinopril [Zestril] 10 mg PO BID #60 tab 11/28/16 01/30/19 Rx amLODIPine [Norvasc] 5 mg PO BID #60 tab 11/28/16 01/30/19 Rx Docusate [Colace] 100 mg PO Q8HR PRN 12/01/16 01/30/19 History Ondansetron Odt [Zofran ODT] 4 mg PO Q8HR PRN #15 tab 12/01/16 01/30/19 Rx Allergies Allergy/AdvReac Type Severity Reaction Status Date / Time No Known Allergies Allergy Verified 12/01/16 09:53 Physical Exam Vitals: Vital Signs Temp Pulse Pulse Resp BP Pulse Ox 01/31/19 09:23 62 01/31/19 09:15 58 L 01/31/19 08:00 74 16 01/31/19 07:00 98.2 F 74 16 169/72 96 01/31/19 01:25 98.1 F 68 18 119/62 95 01/30/19 19:33 97.3 F L 68 15 113/70 95 01/30/19 15:00 98.2 F 88 15 129/80 Intake and Output 01/30/19 01/31/19 01/31/19 22:59 06:59 14:59 Intake Total 150 750 Balance 150 750 Intake: Intake, IV Titration 150 750 Amount Sodium Chloride 0.9% 1, 150 750 000 ml @ 75 mls/hr IV . [id number] [facility] Rx#:[id number] Other: Weight 112.5 kg General: Awake and alert oriented 3 no distress, obese Respiratory exam: No audible wheezing no accessory muscle usage Cardiovascular exam: regular rate, palpable bilateral pulses, no lower extremity edema Abdominal exam: No distention nontender to palpation, obese Cervical spine: Normal alignment, Spurling's negative, facet loading negative Lumbar spine: Loss of lumbar lordosis, normal alignment, tender to palpation over bilateral paraspinal muscles, facet loading is positive bilaterally. Straight leg raise is positive bilateral Sacroiliac joints: Nontender to palpation, ANY is negative, [place] negative Neuro exam: Normal sensation in bilateral upper extremities, deep tendon reflexes are 2+ bilateral upper extremities. Normal sensation in bilateral lower extremities. Deep tendon reflexes are 1 + in lower extremities including patellar and Achilles reflex Psych exam: Cooperative, appropriate mood Results CBC & Chem 7: 01/30/19 12:56 01/30/19 12:56 Labs: Abnormal Lab Results - Last 24 Hours (Table) 01/30/19 Range/Units 15:27 Ur Leukocyte Esterase Small H (Negative) Urine Bacteria Rare H (None) /hpf Urine Mucus Rare H (None) /hpf Microbiology - Last 24 Hours (Table) 01/30/19 15:27 Urine Culture - Preliminary Urine,Clean Catch Assessment and Plan Assessment: #1 lumbar spondylosis without myelopathy #2 lumbar spinal stenosis #3 obesity Plan: After review of medical records and examination the patient. I feel that her back pain is chronic in nature is not an acute problem. She reports that the back is not what is keeping her in the hospital. She feels that she is going to have a colonoscopy to rule out diverticulosis. She would like to follow up with the pain measure doctor in outpatient. I've given #23 her clinics as she was about 30 minutes away from here. I discussed with her that we may be of help her on the outpatient basis. She would like to sort out her abdominal pain and then follow up with us in the clinic. Patient is also on Plavix were unable to do any interventions well patient is on blood thinners as well. Please reach out to me if you have any questions Time with Patient: Less than 30 PQRS Measure Charge Sheet Measure #130: Documentation of Current Meds in Medical Chart: Patient's medications documented in chart Measure #226: Tobacco Use: Screen & Cessation Intervention: Pt not a tobacco user Measure #111: Pneumonia Vaccination: Pneumococcal vaccine administered or pr eviously received Measure #47: Advance Care Plan: Advance care planning discussed & documented, pt chose/unable to give Measure #412: Opioid Treatment Agreement: Documented signed opioid trtmnt agreemnt min once during opioid trtmnt Measure #128: Body Mass Index (BMI) Screening & Follow-up: BMI documented ABOVE normal parameters - f/u documented Measure #131: Pain Assessment & Follow-up: Pain positive & plan documented, Follow-up PRN PQRS Narrative: Smoking Status Former smoker Blood Pressure [Left Arm] 169/72 Pain Intensity [Left Lower 0 Abdomen] Pain Intensity 6 Pain Scale Used Numeric (1 - 10) Scale Used Numeric (1 - 10) Home Medications: Ambulatory Orders Multivitamins, Thera [Multivitamin (formulary)] 1 tab PO DAILY 10/12/16 Omeprazole [PriLOSEC] 20 mg PO DAILY 10/12/16 Atorvastatin [Lipitor] 20 mg PO DAILY #30 tab 10/13/16 Metoprolol Tartrate [Lopressor] 50 mg PO DAILY #30 tab 10/13/16 Aspirin 81 mg PO DAILY chew 11/28/16 Clopidogrel [Plavix] 75 mg PO DAILY #30 tab 11/28/16 Lisinopril [Zestril] 10 mg PO BID #60 tab 11/28/16 amLODIPine [Norvasc] 5 mg PO BID #60 tab 11/28/16 Docusate [Colace] 100 mg PO Q8HR PRN 12/01/16 Ondansetron Odt [Zofran ODT] 4 mg PO Q8HR PRN #15 tab 12/01/16
[2019-02-01] MEDS: SODIUM CHLORIDE 0.9% 1,000 ML IV SCH (04:45)
[2019-02-01] MEDS: BUDESONIDE 0.5 MG/2 ML NEBU INHALATION SCH (07:21)
[2019-02-01 07:51] VITALS: RESP 16
[2019-02-01] MEDS: LISINOPRIL 10 MG TAB PO SCH (09:15)
[2019-02-01] MEDS: ASPIRIN 81 MG PO SCH (09:15)
[2019-02-01] MEDS: PIPERACILLIN-TAZOBACTAM 3.375 GM in SODIUM CHLORIDE 0.9% 100 ML IVPB SCH (09:15)
[2019-02-01] MEDS: CLOPIDOGREL 75 MG TAB PO SCH (09:15)
[2019-02-01] MEDS: PANTOPRAZOLE 40 MG TABLET PO SCH (09:15)
[2019-02-01] MEDS: METOPROLOL TARTRATE 50 MG TAB PO SCH (09:15)
[2019-02-01] MEDS: ATORVASTATIN 20 MG TAB PO SCH (09:15)
[2019-02-01] MEDS: amLODIPine 5 MG TAB PO SCH (09:16)
[2019-02-01] MEDS: MULTIVITAMINS, THERA 1 EACH TAB PO SCH (09:16)
--- NOTE | 2019-02-01 11:47 | P.PN ---
Subjective Progress Note Date: 02/01/19 CHIEF COMPLAINT: Abdominal pain HISTORY OF PRESENT ILLNESS: Patient examined at the bedside. Patient is tolerating full liquid diet. She denies abdominal pain. Denies further episodes of diarrhea. PHYSICAL EXAM: VITAL SIGNS: Reviewed. GENERAL: Well-developed in no acute distress. HEENT: No sclera icterus. Extraocular movements grossly intact. Moist buccal mucosa. Head is atraumatic, normocephalic. ABDOMEN: Soft. Nondistended. Mild tenderness upon palpation of left lower quadrant. NEUROLOGIC: Alert and oriented. Cranial nerves II through XII grossly intact. IMAGING: CT abdomen and pelvis: Mild acute diverticulitis descending colon and sigmoid co magda junction left lower quadrant ASSESSMENT: 1. Left lower quadrant abdominal pain 2. Acute diverticulitis PLAN: 1. Advance diet 2. Consult dietitian for education and diverticulitis 3. Patient will require outpatient colonoscopy in 4-6 weeks 4. Patient may follow up with Dr. Lim in 1 week post discharge Nurse practitioner note has been reviewed by physician. Signing provider agrees with the documented findings, assessment, and plan of care. Objective - Vital Signs Vital signs: Vital Signs Temp 98.2 F 02/01/19 07:00 Pulse 60 02/01/19 07:33 Resp 16 02/01/19 07:00 BP 151/77 02/01/19 07:00 Pulse Ox 98 02/01/19 07:00 Intake & Output 01/31/19 02/01/19 02/01/19 18:59 06:59 18:59 Intake Total 100 750 Balance 100 750 Weight 112.5 kg Intake: Intake, IV Titration 750 Amount Sodium Chloride 0.9% 1, 750 000 ml @ 75 mls/hr IV . [id number] [facility] Rx#:[id number] Oral 100 Other: # Voids 1 - Labs CBC & Chem 7: 01/30/19 12:56 01/30/19 12:56 Labs: Microbiology - Last 24 Hours (Table) 01/30/19 15:27 Urine Culture - Final Urine,Clean Catch Strep agalactiae - (group b)
--- NOTE | 2019-02-01 13:49 | PN ---
PROGRESS NOTE SUBJECTIVE: This is a white female with of the left lower quadrant. Abdominal pain is improved with IV Zosyn. Diet has been advanced. Dietitian is talking to her about diverticulitis. She could possibly be discharged later today. As far as the lumbar pain management for multiple disc herniation, she will have to follow up as an outpatient once off Plavix and cleared by Cardiology. She has Plavix on for recent cardiac stents. She appears weak and tired and fatigued still. Temp 98.2, blood pressure 150s over 70s, O2 of 98% on room air, pulse 59 to 61, respiratory rate 16 to 20. CARDIOVASCULAR: S1, S2. LUNGS: Transmitted upper airway sounds. HEMATOLOGY: Negative Homans. PSYCH: Fair mood and affect. MUSCULOSKELETAL: Tenderness to palpation lumbar spine. GI: Soft. Some mild tenderness left lower quadrant. ASSESSMENT: 1. Acute diverticulitis. 2. Acute abdominal pain. 3. Dehydration. 4. Lumbar disc disease. Possibly may be able to be discharged today and follow up as an outpatient, depending on how she is doing later today. MMODL / IJN: [id number] /
[2019-02-01 14:28] VITALS: BMI 42.5
[2019-02-01 14:52] VITALS: BP 123/71; PULSE 55; TEMP 97.9
== END 2019-02-01 16:32 | disposition home or self-care (01) | DRG 392 ==
LOC: 4SSUR 09:53
PROVIDERS: ADMIT Family Medicine; ATTEND Family Medicine
DX: K57.32 Diverticulitis of large intestine without perforation or abscess without bleeding (principal); H44.001 Unspecified purulent endophthalmitis, right eye; Z68.41 Body mass index [BMI] 40.0-44.9, adult; E86.0 Dehydration; E78.5 Hyperlipidemia, unspecified; I25.2 Old myocardial infarction; K21.9 Gastro-esophageal reflux disease without esophagitis; M48.061 Spinal stenosis, lumbar region without neurogenic claudication; M51.36 Other intervertebral disc degeneration, lumbar region; M19.90 Unspecified osteoarthritis, unspecified site; E66.9 Obesity, unspecified; Z79.02 Long term (current) use of antithrombotics/antiplatelets; Z79.82 Long term (current) use of aspirin; Z79.899 Other long term (current) drug therapy; Z95.5 Presence of coronary angioplasty implant and graft; Z90.710 Acquired absence of both cervix and uterus; Z87.442 Personal history of urinary calculi; Z87.891 Personal history of nicotine dependence; Z90.49 Acquired absence of other specified parts of digestive tract; Z80.7 Family history of other malignant neoplasms of lymphoid, hematopoietic and related tissues; Z82.49 Family history of ischemic heart disease and other diseases of the circulatory system
CPT/HCPCS: 71046; 72132; 74176; 80053; 81001; 84443; 84484; 85025; 85379; 85610; 87086; 94640; 94660

== ENCOUNTER 2019-02-28 06:39 | Day surgery (SDC) | payer MEDICARE ==
[2019-02-26 12:31] VITALS: BMI 44.2
[~2019-02-28 06:39] MED LIST changes: +LACTATED RINGERS 1,000 ML IV SCH; +LIDOCAINE 1% 20 ML VIAL (10MG/ML) FOR IV START INTRADERMA PRN; -REGADENOSON 0.4 MG/5 ML SYRINGE IV ONE
[2019-02-28 07:20] VITALS: TEMP 97.6
[2019-02-28] MEDS ORDERED: PROPOFOL 10 MG/ML 20 ML VIAL IV ONE (07:36)
[2019-02-28] MEDS ORDERED: fentaNYL (PF) 50 MCG/ML 2 ML AMP ONE (07:36)
[2019-02-28] MEDS ORDERED: MIDAZOLAM 2 MG/2 ML VIAL ONE (07:36)
--- NOTE | 2019-02-28 07:40 | P.GSHP ---
History of Present Illness H&P Date: 02/28/19 Chief Complaint: Diverticulitis This is a 68-year-old female who presents today for colonoscopy. Patient history of diverticulitis. Past Medical History Past Medical History: GERD/Reflux, Hyperlipidemia, Hypertension, Myocardial Infarction ([place]), Osteoarthritis (OA), Rheumatoid Arthritis (RA), Sleep Apnea/CPAP/BIPAP Additional Past Medical History / Comment(s): HX Kidney Stones. POSS DIVERTICULITIS FEW WEEKS AGO. BLOOD PRESSURE FLUCTUATES, LOOP MONITOR PUT IN 3 WEEKS AGO. NARROWING OF SPINE W/ DISC PROB. USES C-PAP Last Myocardial Infarction Date:: 06/28/18 History of Any Multi-Drug Resistant Organisms: None Reported Past Surgical History: Cholecystectomy, Heart Catheterization With Stent, Hysterectomy Additional Past Surgical History / Comment(s): Lithotripsy, basket retrieval of kidney stones, COLONOSCOPY Past Anesthesia/Blood Transfusion Reactions: No Reported Reaction Additional Past Anesthesia/Blood Transfusion Reaction / Comment(s): BLOOD TRANSUFSION WHEN HAVING HER CHILDREN-NO REACTIONS TO BLOOD. Date of Last Stent Placement:: 06/28/18 Smoking Status: Former smoker - Past Family History Mother Family Medical History: Cancer Additional Family Medical History / Comment(s): HAD LYMPHOMA THEN 15 YEARS LATER HAD SMALL CELL CA(TOMACH) Father Family Medical History: Myocardial Infarction ([place]) Additional Family Medical History / Comment(s): PT WAS 11 YEARS OLD WHEN HER FATHER FROM MASSIVE [place]. Brother(s) Family Medical History: Coronary Artery Disease (CAD), Myocardial Infarction ([place]) Additional Family Medical History / Comment(s): Pt had a 42 yrs old brother of a massive [place] and another brother who had CABG at the age of 39yrs. Sister(s) Family Medical History: Cancer Medications and Allergies Home Medications Medication Instructions Recorded Confirmed Type Multivitamins, Thera [Multivitamin 1 tab PO DAILY 10/12/16 02/28/19 History (formulary)] Omeprazole [PriLOSEC] 20 mg PO DAILY 10/12/16 02/28/19 History Aspirin 81 mg PO DAILY chew 11/28/16 02/28/19 Rx Clopidogrel [Plavix] 75 mg PO DAILY #30 tab 11/28/16 02/28/19 Rx Carvedilol [Coreg] 12.5 mg PO BID 02/26/19 02/28/19 History Furosemide [Lasix] 20 mg PO DAILY 02/26/19 02/28/19 History Losartan Potassium [Cozaar] 100 mg PO DAILY 02/26/19 02/28/19 History Magnesium 250 mg PO DAILY 02/26/19 02/28/19 History Potassium Chloride [Klor-Con 20] 20 meq PO DAILY 02/26/19 02/28/19 History Rosuvastatin [Crestor] 10 mg PO HS 02/26/19 02/28/19 History amLODIPine [Norvasc] 5 mg PO DAILY 02/26/19 02/28/19 History Allergies Allergy/AdvReac Type Severity Reaction Status Date / Time No Known Allergies Allergy Verified 02/26/19 11:57 Surgical - Exam Vital Signs Temp Pulse Resp BP Pulse Ox 97.6 F 100 14 180/78 97 02/28/19 07:19 02/28/19 07:19 02/28/19 07:19 02/28/19 07:19 02/28/19 07:19 - General well developed, well nourished, no distress - Eyes PERRL - ENT normal pinna - Neck no masses - Respiratory normal expansion - Cardiovascular Rhythm: regular - Abdomen Abdomen: soft, non tender Assessment and Plan Assessment: Diverticulitis. We'll perform colonoscopy.
--- NOTE | 2019-02-28 08:06 | P.OP ---
Date of Procedure: 02/28/19 Preoperative Diagnosis: Diverticulitis Postoperative Diagnosis: Left colon polyp Diverticulosis Procedure(s) Performed: Colonoscopy Anesthesia: MAC Surgeon: Dillon Lim Pathology: none sent Condition: stable Disposition: PACU Description of Procedure: The patient's placed on the endoscopy table in the lateral position. She received IV sedation. Digital rectal exam was performed which revealed no abnormalities. The flexible colonoscope was then placed patient anus and passed throughout the the colon. The ileocecal valve was not visualized secondary to tortuosity the valve. Several times made to enter the ileocecal valve however this wasn't possible. Scope was withdrawn. There is some mild diverticulosis of the ascending, and transverse colon. In the descending colon at the 60 cm andres there was a polyp seen this is removed with snare. There is mild diverticulosis of the descending and sigmoid colon scope was then brought back the rectum and this appeared normal. Scope withdrawn for patient.
[2019-02-28 08:08] VITALS: RESP 16
[2019-02-28 08:33] VITALS: BP 138/75; PULSE 65
== END 2019-02-28 08:50 | disposition home or self-care (01) ==
LOC: ORWHC2ENDO 06:39
PROVIDERS: ATTEND Surgery
DX: D12.4 Benign neoplasm of descending colon (principal); K57.30 Diverticulosis of large intestine without perforation or abscess without bleeding; K21.9 Gastro-esophageal reflux disease without esophagitis; I25.10 Atherosclerotic heart disease of native coronary artery without angina pectoris; I10 Essential (primary) hypertension; Z87.891 Personal history of nicotine dependence; E78.5 Hyperlipidemia, unspecified; I25.2 Old myocardial infarction; M19.90 Unspecified osteoarthritis, unspecified site; M06.9 Rheumatoid arthritis, unspecified; G47.30 Sleep apnea, unspecified; Z87.442 Personal history of urinary calculi; E66.9 Obesity, unspecified; Z68.41 Body mass index [BMI] 40.0-44.9, adult; Z86.73 Personal history of transient ischemic attack (TIA), and cerebral infarction without residual deficits; Z95.818 Presence of other cardiac implants and grafts; Z99.89 Dependence on other enabling machines and devices; Z95.5 Presence of coronary angioplasty implant and graft; Z90.49 Acquired absence of other specified parts of digestive tract; Z90.710 Acquired absence of both cervix and uterus; Z80.7 Family history of other malignant neoplasms of lymphoid, hematopoietic and related tissues; Z80.0 Family history of malignant neoplasm of digestive organs; Z79.02 Long term (current) use of antithrombotics/antiplatelets; Z79.82 Long term (current) use of aspirin; Z79.899 Other long term (current) drug therapy
CPT/HCPCS: 88305; 45385; J2250; J3010; J2704

== ENCOUNTER 2019-10-05 12:33 | Observation (INO) | payer MEDICARE ==
[2019-10-05] MEDS ORDERED: SODIUM CHLORIDE 0.9% 1,000 ML IV STA ×2 (14:26)
[2019-10-05] MEDS ORDERED: ASPIRIN 81 MG PO STA (14:30)
--- NOTE | 2019-10-05 14:31 | ED ---
General Adult HPI - General Source: patient, RN notes reviewed, old records reviewed Mode of arrival: wheelchair Limitations: no limitations <Shana Guerrero - Last Filed: 10/05/19 17:11> <Scotty Goel - Last Filed: 10/05/19 18:10> - General Chief complaint: Neuro Symptoms/Deficit Stated complaint: sent by Nakul Aburto to be admitted? Time Seen by Provider: 10/05/19 13:56 - History of Present Illness Initial comments: 5-year-old female presents today for evaluation for concern for dizziness, bilateral arm tingling, blurry vision, episodes of chest pain and shortness of breath. Patient reports that she's been having the symptoms for the past 2 days. Patient states she's had no fevers or chills. She denies any cough. Patient reports that this feels like she had when she had her previous CT. She states she is feeling quite often out of it. She is here with her . She reports her caught she called her primary care physician who sent her here for further evaluation. Patient states that she's had history of CT and stenting in the past. Her adult day care worker is in [place]. Patient reports that she did have full cardiac evaluation in May of this past year. (Shana Guerrero) - Related Data Home Medications Medication Instructions Recorded Confirmed Multivitamins, Thera [Multivitamin 1 tab PO DAILY 10/12/16 02/28/19 (formulary)] Omeprazole [PriLOSEC] 20 mg PO DAILY 10/12/16 02/28/19 Carvedilol [Coreg] 12.5 mg PO BID 02/26/19 02/28/19 Furosemide [Lasix] 20 mg PO DAILY 02/26/19 02/28/19 Losartan Potassium [Cozaar] 100 mg PO DAILY 02/26/19 02/28/19 Magnesium 250 mg PO DAILY 02/26/19 02/28/19 Potassium Chloride [Klor-Con 20] 20 meq PO DAILY 02/26/19 02/28/19 Rosuvastatin [Crestor] 10 mg PO HS 02/26/19 02/28/19 amLODIPine [Norvasc] 5 mg PO DAILY 02/26/19 02/28/19 Previous Rx's Medication Instructions Recorded Aspirin 81 mg PO DAILY chew 11/28/16 Clopidogrel [Plavix] 75 mg PO DAILY #30 tab 11/28/16 Allergies Allergy/AdvReac Type Severity Reaction Status Date / Time No Known Allergies Allergy Verified 10/05/19 13:27 Review of Systems ROS Other: All systems not noted in ROS Statement are negative. <Shana Guerrero - Last Filed: 10/05/19 17:11> ROS Other: All systems not noted in ROS Statement are negative. <Scotty Goel - Last Filed: 10/05/19 18:10> ROS Statement: Those systems with pertinent positive or pertinent negative responses have been documented in the HPI. Past Medical History Past Medical History: GERD/Reflux, Hyperlipidemia, Hypertension, Myocardial Infarction (CT), Osteoarthritis (OA), Rheumatoid Arthritis (RA), Sleep Apnea/CPAP/BIPAP Additional Past Medical History / Comment(s): HX Kidney Stones. POSS DIVERTICULITIS FEW WEEKS AGO. BLOOD PRESSURE FLUCTUATES, LOOP MONITOR PUT IN 3 WEEKS AGO. NARROWING OF SPINE W/ DISC PROB. USES C-PAP Last Myocardial Infarction Date:: 06/28/18 History of Any Multi-Drug Resistant Organisms: None Reported Past Surgical History: Cholecystectomy, Heart Catheterization With Stent, Hysterectomy Additional Past Surgical History / Comment(s): Lithotripsy, basket retrieval of kidney stones, COLONOSCOPY, loop recorder Past Anesthesia/Blood Transfusion Reactions: No Reported Reaction Additional Past Anesthesia/Blood Transfusion Reaction / Comment(s): BLOOD TRANSUFSION WHEN HAVING HER CHILDREN-NO REACTIONS TO BLOOD. Date of Last Stent Placement:: 06/28/18 Past Psychological History: No Psychological Hx Reported Smoking Status: Former smoker Past Alcohol Use History: None Reported Past Drug Use History: None Reported - Past Family History Mother Family Medical History: Cancer Additional Family Medical History / Comment(s): HAD LYMPHOMA THEN 15 YEARS LATER HAD SMALL CELL CA(TOMACH) Father Family Medical History: Myocardial Infarction (CT) Additional Family Medical History / Comment(s): PT WAS 9 YEARS OLD WHEN HER FATHER FROM MASSIVE CT. Brother(s) Family Medical History: Coronary Artery Disease (CAD), Myocardial Infarction (CT) Additional Family Medical History / Comment(s): Pt had a 42 yrs old brother of a massive CT and another brother who had CABG at the age of 39yrs. Sister(s) Family Medical History: Cancer <Shnaa Guerrero - Last Filed: 10/05/19 17:11> General Exam Limitations: no limitations Head exam: Present: atraumatic, normocephalic, normal inspection Eye exam: Present: normal appearance, PERRL, EOMI, other (Patient states that her vision is blurry but has normal visual acuity. No eye pain or complains of black shot current I her vision other visual disturbances.). Absent: scleral icterus, conjunctival injection, periorbital swelling ENT exam: Present: normal exam, mucous membranes moist Neck exam: Present: normal inspection. Absent: tenderness, meningismus, lymphadenopathy Respiratory exam: Present: normal lung sounds bilaterally. Absent: respiratory distress, wheezes, rales, rhonchi, stridor Cardiovascular Exam: Present: regular rate, normal rhythm, normal heart sounds. Absent: systolic murmur, diastolic murmur, rubs, gallop, clicks GI/Abdominal exam: Present: soft, normal bowel sounds. Absent: distended, tenderness, guarding, rebound, rigid Extremities exam: Present: normal inspection, full ROM, normal capillary refill. Absent: tenderness, pedal edema, joint swelling, calf tenderness Back exam: Present: normal inspection Neurological exam: Present: alert, oriented X3, CN II-XII intact Psychiatric exam: Present: normal affect, normal mood Skin exam: Present: warm, dry, intact, normal color. Absent: rash <Shana Guerrero - Last Filed: 10/05/19 17:11> - General Exam Comments Initial Comments: Is an alert and oriented 5-year-old female. Patient appears in no acute distress at this time. (Shana Guerrero) Course <Scotty Goel - Last Filed: 10/05/19 18:10> Vital Signs 10/05/19 10/05/19 10/05/19 13:27 15:58 16:00 Temperature 98 F Pulse Rate 64 57 L 56 L Respiratory 18 20 17 Rate Blood Pressure 180/84 150/67 150/67 O2 Sat by Pulse 96 97 97 Oximetry 10/05/19 10/05/19 10/05/19 16:30 17:01 17:30 Temperature Pulse Rate 63 57 L 61 Respiratory 16 14 20 Rate Blood Pressure 151/72 147/77 142/61 O2 Sat by Pulse 99 99 96 Oximetry - Reevaluation(s) Reevaluation #1: 10/05/19 18:09 PA supervision: I proceeded [id number] evaluation the patient presenting with complaints of intermittent chest pain that felt similar to her prior cardiac event. Just has some other symptoms which she states are similar to what she had the past including some dizziness. Just has some arm numbness. I did discuss the findings with the patient family as well as with Dr. Aburto who will come to see the patient in the emergency department patient's to be admitted with consultation to cardiology. (Scotty Goel) Medical Decision Making - Lab Data Result diagrams: 10/05/19 14:18 10/05/19 14:18 <Shana Guerrero - Last Filed: 10/05/19 17:11> - Lab Data Result diagrams: 10/05/19 14:18 10/05/19 14:18 <Scotty Goel - Last Filed: 10/05/19 18:10> - Medical Decision Making 5-year-old female presents with dizziness, episodes of chest pain and shortness of breath, bilateral arm tingling. She just feels "out of it" as well as complaining of some blurred vision episodes. She has no decreased visual acu ity. She is alert and oriented has no focal neurological deficits. At this time patient's labwork was reviewed and relatively unremarkable. EKG shows no acute changes. Chest x-ray shows no acute cardiothoracic process. CT of the brain was negative for any acute cranial hemorrhage or midline shift noted. At this time Patient case was discussed with Dr. Goel. For concern for patient's vague symptoms of dizziness lightheadedness and occasional episodes of chest pain we will that the Patient for evaluation and observation. Patient and her are agreeable to this plan. (Shana Guerrero) - Lab Data Lab Results 10/05/19 10/05/19 10/05/19 Range/Units 14:18 14:18 14:18 WBC 8.8 (3.8-10.6) k/uL RBC 4.62 (3.80-5.40) m/uL Hgb 13.3 (11.4-16.0) gm/dL Hct 40.3 (34.0-46.0) % MCV 87.2 (80.0-100.0) fL MCH 28.9 (25.0-35.0) pg MCHC 33.1 (31.0-37.0) g/dL RDW 13.8 (11.5-15.5) % Plt Count 269 (150-450) k/uL Neutrophils % 78 % Lymphocytes % 17 % Monocytes % 4 % Eosinophils % 0 % Basophils % 0 % Neutrophils # 6.8 (1.3-7.7) k/uL Lymphocytes # 1.5 (1.0-4.8) k/uL Monocytes # 0.4 (0-1.0) k/uL Eosinophils # 0.0 (0-0.7) k/uL Basophils # 0.0 (0-0.2) k/uL PT 10.0 (9.0-12.0) sec INR 0.9 (<1.2) APTT 23.9 (22.0-30.0) sec Sodium 143 (137-145) mmol/L Potassium 4.3 (3.5-5.1) mmol/L Chloride 107 (98-107) mmol/L Carbon Dioxide 27 (22-30) mmol/L Anion Gap 9 mmol/L BUN 15 (7-17) mg/dL Creatinine 0.73 (0.52-1.04) mg/dL Est GFR (CKD-EPI)AfAm >90 (>60 ml/min/1.73 sqM) Est GFR (CKD-EPI)NonAf 84 (>60 ml/min/1.73 sqM) Glucose 130 H (74-99) mg/dL Calcium 9.5 (8.4-10.2) mg/dL Total Bilirubin 0.6 (0.2-1.3) mg/dL AST 31 (14-36) U/L ALT 58 H (9-52) U/L Alkaline Phosphatase 118 (38-126) U/L Troponin I (0.000-0.034) ng/mL Total Protein 7.8 (6.3-8.2) g/dL Albumin 4.6 (3.5-5.0) g/dL Urine Color Urine Appearance (Clear) Urine pH (5.0-8.0) Ur Specific [place] (1.001-1.035) Urine Protein (Negative) Urine Glucose (UA) (Negative) Urine Ketones (Negative) Urine Blood (Negative) Urine Nitrite (Negative) Urine Bilirubin (Negative) Urine Urobilinogen (<2.0) mg/dL Ur Leukocyte Esterase (Negative) Urine RBC (0-5) /hpf Urine WBC (0-5) /hpf Ur Squamous Epith Cells (0-4) /hpf Hyaline Casts (0-2) /lpf Urine Mucus (None) /hpf 10/05/19 10/05/19 Range/Units 14:18 16:01 WBC (3.8-10.6) k/uL RBC (3.80-5.40) m/uL Hgb (11.4-16.0) gm/dL Hct (34.0-46.0) % MCV (80.0-100.0) fL MCH (25.0-35.0) pg MCHC (31.0-37.0) g/dL RDW (11.5-15.5) % Plt Count (150-450) k/uL Neutrophils % % Lymphocytes % % Monocytes % % Eosinophils % % Basophils % % Neutrophils # (1.3-7.7) k/uL Lymphocytes # (1.0-4.8) k/uL Monocytes # (0-1.0) k/uL Eosinophils # (0-0.7) k/uL Basophils # (0-0.2) k/uL PT (9.0-12.0) sec INR (<1.2) APTT (22.0-30.0) sec Sodium (137-145) mmol/L Potassium (3.5-5.1) mmol/L Chloride (98-107) mmol/L Carbon Dioxide (22-30) mmol/L Anion Gap mmol/L BUN (7-17) mg/dL Creatinine (0.52-1.04) mg/dL Est GFR (CKD-EPI)AfAm (>60 ml/min/1.73 sqM) Est GFR (CKD-EPI)NonAf (>60 ml/min/1.73 sqM) Glucose (74-99) mg/dL Calcium (8.4-10.2) mg/dL Total Bilirubin (0.2-1.3) mg/dL AST (14-36) U/L ALT (9-52) U/L Alkaline Phosphatase (38-126) U/L Troponin I <0.012 (0.000-0.034) ng/mL Total Protein (6.3-8.2) g/dL Albumin (3.5-5.0) g/dL Urine Color Yellow Urine Appearance Clear (Clear) Urine pH 5.5 (5.0-8.0) Ur Specific [place] 1.018 (1.001-1.035) Urine Protein Negative (Negative) Urine Glucose (UA) Negative (Negative) Urine Ketones Negative (Negative) Urine Blood Negative (Negative) Urine Nitrite Negative (Negative) Urine Bilirubin Negative (Negative) Urine Urobilinogen <2.0 (<2.0) mg/dL Ur Leukocyte Esterase Small H (Negative) Urine RBC 2 (0-5) /hpf Urine WBC 2 (0-5) /hpf Ur Squamous Epith Cells <1 (0-4) /hpf Hyaline Casts 3 H (0-2) /lpf Urine Mucus Rare H (None) /hpf 10/05/19 15:54 EKG shows third at 1340 shows normal sinus rhythm, low voltage QRS. Borderline EKG. Ventricular rate of 71 bpm. Intervals 162 ms. Respirations 80 ms. QT QTc is 420/456 ms. (Shana Guerrero) Disposition Is patient prescribed a controlled substance at d/c from ED?: No Time of Disposition: 17:14 <Shana Guerrero - Last Filed: 10/05/19 17:11> <Scotty Goel - Last Filed: 10/05/19 18:10> Clinical Impression: Dizziness, Chest pain Disposition: ADMITTED IP TO THIS HOSP Condition: Stable Referrals: Nakul Aburto MD [Primary Care Provider] - 1-2 days
[2019-10-05 14:36] LABS: Basophils % (A) 0 %; Eosinophils % (A) 0 %; HCT 40.3 % (34.0-46.0); HGB 13.3 gm/dL (11.4-16.0); Lymphocytes # (A) 1.5 k/uL (1.0-4.8); Lymphocytes % (A) 17 %; MCH 28.9 pg (25.0-35.0); MCHC 33.1 g/dL (31.0-37.0); MCV 87.2 fL (80.0-100.0); Mean Platelet Volume 8.1; Monocytes # (A) 0.4 k/uL (0-1.0); Monocytes % (A) 4 %; Neutrophils # (A) 6.8 k/uL (1.3-7.7); Neutrophils % (A) 78 %; Platelet Count 269 k/uL (150-450); RBC 4.62 m/uL (3.80-5.40); RDW 13.8 % (11.5-15.5); WBC 8.8 k/uL (3.8-10.6)
[2019-10-05 14:43] LABS: Chloride 107 mmol/L (98-107)
[2019-10-05 14:45] LABS: ALT 58 U/L (9-52); AST 31 U/L (14-36); African American GFR (CKD) >90 (>60 ml/min/1.73 sqM); Albumin 4.6 g/dL (3.5-5.0); Alkaline Phosphatase 118 U/L (38-126); Anion Gap 9 mmol/L; Blood Urea Nitrogen 15 mg/dL (7-17); Calcium 9.5 mg/dL (8.4-10.2); Carbon Dioxide 27 mmol/L (22-30); Glucose 130 mg/dL (74-99); Non-African American GFR(CKD) 84 (>60 ml/min/1.73 sqM); Potassium 4.3 mmol/L (3.5-5.1); Sodium 143 mmol/L (137-145); Total Bilirubin 0.6 mg/dL (0.2-1.3); Total Protein 7.8 g/dL (6.3-8.2)
[2019-10-05 14:47] LABS: INR 0.9 (<1.2)
[2019-10-05 14:48] LABS: Partial Thromboplastin Time 23.9 sec (22.0-30.0)
--- NOTE | 2019-10-05 14:59 | XR ---
EXAMINATION TYPE: XR chest 2V DATE OF EXAM: 10/05/2019 COMPARISON: 01/30/2019 TECHNIQUE: PA and lateral views submitted. HISTORY: Shortness of breath FINDINGS: The lungs are clear and there is no pneumothorax, pleural effusion, or focal pneumonia. Heart size stable. Arthropathy of the shoulders. No overt failure. Linear change left lung base most typical of atelectasis. Hypertrophic and degenerative change of the spine. IMPRESSION: 1. No acute process.
--- NOTE | 2019-10-05 15:15 | CT ---
EXAMINATION TYPE: CT brain wo con DATE OF EXAM: 10/05/2019 COMPARISON: 11/28/2016 HISTORY: Dizziness CT DLP: 1099.[address] of the head is obtained. The ventricles, basal cisterns and sulci overlying the conve xities are consistent with the patient's age. The calvarium is intact. No midline shift. 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 Intracranial atherosclerotic shanks ges are seen. IMPRESSION: 1. No evidence of acute hemorrhage or mass effect. If symptoms persist or there is clinical concern for acute ischemia correlate with MRI.
[2019-10-05 16:09] LABS: Appearance,Urine Clear (Clear); Bilirubin,Urine Negative (Negative); Blood,Urine Negative (Negative); Color,Urine Yellow; Glucose,Urine (UA) Negative (Negative); Hyaline Casts,Urine 3 /lpf (0-2); Ketones,Urine Negative (Negative); Leukocyte Esterase,Urine Small (Negative); Mucus,Urine Rare /hpf; Nitrite,Urine Negative (Negative); PH, Urine 5.5 (5.0-8.0); Protein,Urine Negative (Negative); RBC,Urine 2 /hpf (0-5); Specific Gravity,Urine 1.018 (1.001-1.035); Squamous Epithelial Cell,Urine <1 /hpf (0-4); Urobilinogen,Urine <2.0 mg/dL (<2.0); WBC,Urine 2 /hpf (0-5)
[2019-10-05] MEDS ORDERED: methylPREDNISolone SOD SUCCI 40 MG/ML 1 ML VIAL IV STA (18:54)
[2019-10-05] MEDS: CARVEDILOL 12.5 MG TAB PO SCH (21:20)
[2019-10-05] MEDS: ATORVASTATIN 20 MG TAB PO SCH (21:20)
--- NOTE | 2019-10-05 22:56 | CT ---
EXAMINATION TYPE: CT chest wo con DATE OF EXAM: 10/05/2019 COMPARISON: November 07, 2018 HISTORY: CHEST PAIN CT DLP: 702 mGycm Automated exposure control for dose reduction was used. The lungs are clear of infiltrate. There is no evidence of a pulmonary mass. There is minimal linear density in the lingula left upper lobe consistent with scarring or subsegmental atelectasis. There is no pleural effusion. Heart size is normal. There is no pericardial effusion. There is some coronary artery calcification. Thoracic aorta shows no aneurysm. There is no mediastinal adenopathy. There are no hilar masses. Upper abdominal soft tissues are intact. There is cholecystectomy. There is hypertrophic spurring in the thoracic spine. There is no compression fracture. Ribs appear i ntact. Impression Negative CT scan of the chest. No change compared to old exam.
[2019-10-05] MEDS: methylPREDNISolone SOD SUCCI 40 MG/ML 1 ML VIAL IV SCH (22:58)
[2019-10-06 04:50] LABS: Cholesterol 162 mg/dL (<200); HDL Cholesterol 70 mg/dL (40-60); LDL Cholesterol,Calculated 70 mg/dL (0-99); Triglycerides 109 mg/dL (<150)
[2019-10-06 06:07] LABS: Glucose,Whole Blood 142 mg/dL (75-99)
[2019-10-06] MEDS: INSULIN ASPART (NovoLOG) 100 UNIT/ML VIAL SQ SCH ×4 (06:07→21:23)
[2019-10-06] MEDS: PANTOPRAZOLE 40 MG TABLET PO SCH (06:09)
[2019-10-06] MEDS: methylPREDNISolone SOD SUCCI 40 MG/ML 1 ML VIAL IV SCH ×4 (06:09→22:46)
[2019-10-06] MEDS: CARVEDILOL 12.5 MG TAB PO SCH ×2 (06:10→16:46)
[2019-10-06] MEDS: CLOPIDOGREL 75 MG TAB PO SCH (08:57)
[2019-10-06] MEDS: LOSARTAN 50 MG TAB PO SCH (08:57)
[2019-10-06] MEDS: FUROSEMIDE 20 MG TAB PO SCH (08:57)
[2019-10-06] MEDS: POTASSIUM CHLORIDE ER 20 MEQ TAB.ER PO SCH (08:57)
[2019-10-06] MEDS ORDERED: amLODIPine 5 MG TAB PO SCH (09:00)
[2019-10-06] MEDS ORDERED: ASPIRIN 325 MG TAB PO SCH (09:00)
--- NOTE | 2019-10-06 10:45 | P.CRDCN ---
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 As a history of hypertension, hyperlipidemia and prior [place] in May 2018 with stenting done at that time these details are not available to us but the patient believes she has 2 other lesions one of 45% and one at 50%. He presented to the emergency department with complaints of overall not feeling well with bilateral hand tingling and left arm pain and mild nausea. According to her the symptoms are very similar to symptoms she had with her [place]. She's also noted labile blood pressure readings at home that are either really high and low. Chest x-ray on Admission showed no acute process. Computed tomography scan brain was done that showed no evidence of acute hemorrhage or mass effect. Computed tomography scan of the chest without contrast was negative with no change compared to old exam. EKG on admission showed sinus rhythm with no ischemic changes noted. Labs showed normal electrolytes and renal function, NT proBNP of 207 and troponins negative 3. Past Medical History Past Medical History: GERD/Reflux, Hyperlipidemia, Hypertension, Myocardial Infarction ([place]), Osteoarthritis (OA), Rheumatoid Arthritis (RA), Sleep Apnea/CPAP/BIPAP Additional Past Medical History / Comment(s): HX Kidney Stones. POSS DIVERTICULITIS FEW WEEKS AGO. BLOOD PRESSURE FLUCTUATES, LOOP MONITOR PUT IN 3 WEEKS AGO. NARROWING OF SPINE W/ DISC PROB. USES C-PAP Last Myocardial Infarction Date:: 06/28/18 History of Any Multi-Drug Resistant Organisms: None Reported Past Surgical History: Cholecystectomy, Heart Catheterization With Stent, Hysterectomy Additional Past Surgical History / Comment(s): Lithotripsy, basket retrieval of kidney stones, COLONOSCOPY, loop recorder Past Anesthesia/Blood Transfusion Reactions: No Reported Reaction Additional Past Anesthesia/Blood Transfusion Reaction / Comment(s): BLOOD TRANSUFSION WHEN HAVING HER CHILDREN-NO REACTIONS TO BLOOD. Date of Last Stent Placement:: 06/28/18 Past Psychological History: No Psychological Hx Reported Additional Psychological History / Comment(s): Pt resides with her spouse. She is independent. Smoking Status: Former smoker Past Alcohol Use History: None Reported Additional Past Alcohol Use History / Comment(s): STARTED SMOKING AT AGE 18 AND QUIT AT AGE 25 (LITE SMOKER) Past Drug Use History: None Reported - Past Family History Mother Family Medical History: Cancer Additional Family Medical History / Comment(s): HAD LYMPHOMA THEN 15 YEARS LATER HAD SMALL CELL CA(TOMACH) Father Family Medical History: Myocardial Infarction ([place]) Additional Family Medical History / Comment(s): PT WAS 9 YEARS OLD WHEN HER FATHER FROM MASSIVE [place]. Brother(s) Family Medical History: Coronary Artery Disease (CAD), Myocardial Infarction ([place]) Additional Family Medical History / Comment(s): Pt had a 42 yrs old brother of a massive [place] and another brother who had CABG at the age of 39yrs. Sister(s) Family Medical History: Cancer Medications and Allergies Home Medications Medication Instructions Recorded Confirmed Type Multivitamins, Thera [Multivitamin 1 tab PO DAILY 10/12/16 10/05/19 History (formulary)] Aspirin 81 mg PO DAILY chew 11/28/16 10/05/19 Rx Clopidogrel [Plavix] 75 mg PO DAILY #30 tab 11/28/16 10/05/19 Rx Furosemide [Lasix] 20 mg PO BID 02/26/19 10/05/19 History Losartan Potassium [Cozaar] 100 mg PO DAILY 02/26/19 10/05/19 History Magnesium 200 mg PO DAILY 02/26/19 10/05/19 History Potassium Chloride [Klor-Con 20] 20 meq PO DAILY 02/26/19 10/05/19 History Diclofenac Sodium [Voltaren] 75 mg PO BID 10/05/19 10/05/19 History Doxazosin [Cardura] 4 mg PO BID 10/05/19 10/05/19 History Ezetimibe [Zetia] 10 mg PO DAILY 10/05/19 10/05/19 History Isosorbide Mononitrate ER [Imdur] 30 mg PO DAILY 10/05/19 10/05/19 History Levothyroxine Sodium [Synthroid] 100 mcg PO DAILY 10/05/19 10/05/19 History Meclizine HCl 25 mg PO Q4H PRN 10/05/19 10/05/19 History Megareds Supplement 1 tab PO DAILY 10/05/19 10/05/19 History Nitroglycerin 0.4 mg SL DAILY PRN 10/05/19 10/05/19 History Pantoprazole [Protonix] 40 mg PO DAILY 10/05/19 10/05/19 History Rosuvastatin [Crestor] 20 mg PO DAILY 10/05/19 10/05/19 History amLODIPine [Norvasc] 2.5 mg PO DAILY 10/05/19 10/05/19 History predniSONE 10 mg PO DAILY 10/05/19 10/05/19 History Carvedilol [Coreg] 6.25 mg PO BID 10/06/19 10/06/19 History Allergies Allergy/AdvReac Type Severity Reaction Status Date / Time No Known Allergies Allergy Verified 10/05/19 19:18 Physical Exam Vitals: Vital Signs Temp Pulse Pulse Resp BP BP Pulse Ox 10/06/19 08:00 97.9 F 61 16 174/82 96 10/06/19 03:46 98 F 75 18 158/75 96 10/05/19 23:12 70 18 163/78 95 10/05/19 21:00 60 14 136/65 95 10/05/19 20:37 97.9 F 72 18 182/77 95 10/05/19 20:30 56 L 18 124/65 95 10/05/19 20:00 56 L 13 140/59 96 10/05/19 19:30 64 20 123/64 97 10/05/19 19:00 56 L 14 131/50 96 10/05/19 18:30 57 L 9 L 113/43 97 10/05/19 18:00 56 L 11 L 158/79 96 10/05/19 17:30 61 20 142/61 96 10/05/19 17:01 57 L 14 147/77 99 10/05/19 16:30 63 16 151/72 99 10/05/19 16:00 56 L 17 150/67 97 10/05/19 15:58 57 L 20 150/67 97 10/05/19 13:27 98 F 64 18 180/84 96 Intake and Output 10/05/19 10/06/19 10/06/19 22:59 06:59 14:59 Other: # Voids 1 Weight 113.398 kg 112.1 kg PHYSICAL EXAMINATION: HEENT: Head is atraumatic, normocephalic. Pupils equal, round. Neck is supple. There is no elevated jugular venous pressure. HEART EXAMINATION: Heart sounds regular, S1 and S2 normal. No murmur or gallop heard. CHEST EXAMINATION: Lungs are clear to auscultation. No chest wall tenderness is noted on palpation or with deep breathing. ABDOMEN: Soft, nontender. Bowel sounds are heard. No organomegaly noted. EXTREMITIES: 2+ peripheral pulses with no evidence of peripheral edema and no calf tenderness noted. Tenderness noted to left upper arm.. NEUROLOGIC patient is awake, alert and oriented x3. . Results 10/05/19 14:18 10/05/19 14:18 Cardiac Enzymes 10/05/19 10/05/19 10/05/19 Range/Units 14:18 14:18 22:14 AST 31 (14-36) U/L Troponin I <0.012 <0.012 (0.000-0.034) ng/mL 10/06/19 Range/Units 04:16 AST (14-36) U/L Troponin I <0.012 (0.000-0.034) ng/mL Coagulation 10/05/19 Range/Units 14:18 PT 10.0 (9.0-12.0) sec APTT 23.9 (22.0-30.0) sec Lipids 10/06/19 Range/Units 04:16 Triglycerides 109 (<150) mg/dL Cholesterol 162 (<200) mg/dL HDL Cholesterol 70 H (40-60) mg/dL CBC 10/05/19 Range/Units 14:18 WBC 8.8 (3.8-10.6) k/uL RBC 4.62 (3.80-5.40) m/uL Hgb 13.3 (11.4-16.0) gm/dL Hct 40.3 (34.0-46.0) % Plt Count 269 (150-450) k/uL Comprehensive Metabolic Panel 10/05/19 Range/Units 14:18 Sodium 143 (137-145) mmol/L Potassium 4.3 (3.5-5.1) mmol/L Chloride 107 (98-107) mmol/L Carbon Dioxide 27 (22-30) mmol/L BUN 15 (7-17) mg/dL Creatinine 0.73 (0.52-1.04) mg/dL Glucose 130 H (74-99) mg/dL Calcium 9.5 (8.4-10.2) mg/dL AST 31 (14-36) U/L ALT 58 H (9-52) U/L Alkaline Phosphatase 118 (38-126) U/L Total Protein 7.8 (6.3-8.2) g/dL Albumin 4.6 (3.5-5.0) g/dL Current Medications Generic Name Dose Route Start Last Admin Trade Name Lane PRN Reason Stop Dose Admin Amlodipine Besylate 5 mg 10/06/19 09:00 10/06/19 08:57 Norvasc PO 5 mg DAILY [facility] Administration Aspirin 81 mg 10/07/19 09:00 Aspirin PO DAILY [facility] Atorvastatin Calcium 20 mg 10/05/19 21:00 10/05/19 21:20 Lipitor PO 20 mg HS [facility] Administration Carvedilol 12.5 mg 10/05/19 21:00 10/06/19 06:10 Coreg PO 12.5 mg AC-BID [facility] Administration Clopidogrel Bisulfate 75 mg 10/06/19 09:00 10/06/19 08:57 Plavix PO 75 mg DAILY [facility] Administration Furosemide 20 mg 10/06/19 09:00 10/06/19 08:57 Lasix PO 20 mg DAILY [facility] Administration Insulin Aspart 0 unit 10/06/19 07:30 10/06/19 06:07 Novolog SQ Not Given ACHS [facility] Protocol Losartan Potassium 100 mg 10/06/19 09:00 10/06/19 08:57 Cozaar PO 100 mg DAILY [facility] Administration Methylprednisolone Sodium Succinate 40 mg 10/06/19 00:00 10/06/19 06:09 Solu-Medrol IV 40 mg Q6HR [facility] Administration Pantoprazole Sodium 40 mg 10/06/19 07:30 10/06/19 06:09 Protonix PO 40 mg [id number] [facility] Administration Potassium Chloride 20 meq 10/06/19 09:00 10/06/19 08:57 K-Dur 20 PO 20 meq DAILY [facility] Administration Intake and Output 10/05/19 10/06/19 10/06/19 22:59 06:59 14:59 Other: # Voids 1 Weight 113.398 kg 112.1 kg 10/05/19 14:18 10/05/19 14:18 EKG Interpretations (text) Sinus rhythm Assessment and Plan Assessment: #1 symptoms of hand tingling and burning with left upper arm pain and nausea, acute coronary event has been ruled out #2 history of CAD with [place] and stenting in May 2018 #3 hypertension #4 hyperlipidemia Plan: From cardiology perspective, we will obtain a 2-D echo with Doppler. Increase activity. We will change administration time of amlodipine to be taken at bedtime. Will schedule stress test for tomorrow morning. Further recommendations to follow. [employer] note has been reviewed, I agree with a documented findings and plan of care. Patient was seen and examined.
[2019-10-06] MEDS ORDERED: MECLIZINE 12.5 MG TAB PO PRN (10:57)
[2019-10-06 12:11] LABS: Glucose,Whole Blood 145 mg/dL (75-99)
[2019-10-06 17:09] LABS: Glucose,Whole Blood 187 mg/dL (75-99)
--- NOTE | 2019-10-06 18:25 | PN ---
PROGRESS NOTE 68-year-old white female who is scheduled for a stress test tomorrow. She has paresthesias in all these extremities. Her IV steroids have helped her pain over the last 24-48 hours. Cardiovascular: S1-S2. Lungs clear. GI soft. pulses palpation diffuse spinal muscles, cervical, thoracic, lumbar. Lungs are clear. Cardiovascular S1, S2. ASSESSMENT: 1. Atypical chest pain, paresthesias with negative CT scan, negative troponins. A stress test tomorrow as she has a history of stents and more blockages in her heart that needs stenting possibly. 2. Paresthesias times four extremities will be evaluated by Neurology. MMODL / IJN: [id number] /
[2019-10-06] MEDS: ATORVASTATIN 20 MG TAB PO SCH (20:04)
[2019-10-06] MEDS: amLODIPine 5 MG TAB PO SCH (20:05)
[2019-10-06 21:05] LABS: Glucose,Whole Blood 187 mg/dL (75-99)
[2019-10-07] MEDS: methylPREDNISolone SOD SUCCI 40 MG/ML 1 ML VIAL IV SCH ×3 (05:44→17:15)
[2019-10-07] MEDS: INSULIN ASPART (NovoLOG) 100 UNIT/ML VIAL SQ SCH ×4 (05:44→21:13)
[2019-10-07 05:52] LABS: Glucose,Whole Blood 144 mg/dL (75-99)
[2019-10-07] MEDS ORDERED: DOBUTamine DRIP for NUC MED 500 MG in DEXTROSE/WATER 1 250ML.BAG IV ONE (07:00)
--- NOTE | 2019-10-07 11:01 | ECHOF ---
Referral Reason:chest pain MEASUREMENTS -------- HEIGHT: 160.0 cm WEIGHT: 111.6 kg BP: 169/82 RVIDd: 2.3 cm (< 3.3) IVSd: 1.2 cm (0.6 - 1.1) LVIDd: 4.6 cm (3.9 - 5.3) LVPWd: 1.3 cm (0.6 - 1.1) IVSs: 2.3 cm LVIDs: 1.4 cm LVPWs: 1.5 cm LAESV Index (A-L): 34.44 ml/m Ao Diam: 3.5 cm (2.0 - 3.7) AV Cusp: 2.0 cm (1.5 - 2.6) LA Diam: 3.7 cm (2.7 - 3.8) MV EXCURSION: 19.089 mm (> 18.000) MV EF SLOPE: 57 mm/s (70 - 150) EPSS: 0.2 cm MV E Yo: 1.06 m/s MV DecT: 272 ms MV A Yo: 0.92 m/s MV E/A Ratio: 1.16 RAP: 5.00 mmHg RVSP: 32.66 mmHg TAPSE: 28.11 mm FINDINGS -------- Sinus rhythm. This was a technically adequate study. The left ventricular size is normal. There is mild concentric left ventricular hypertrophy. Overa ll left ventricular systolic function is normal with, an EF between 55 - 60 %. Increased LAP Grade 2 Diastolic Dysfunction. The right ventricle is normal in size. The right ventricular systolic function is normal. LA is moderately dilated 34-39 ml/m2 The right atrial size is normal. The aortic valve is trileaflet and appears structurally normal. The mitral valve is normal. There is trace mitral regurgitation. The tricuspid valve appears structurally normal. Mild tricuspid regurgitation present. Right vent ricular systolic pressure is normal at < 35 mmHg. There is no pulmonic regurgitation present. The aortic root size is normal. IVC Not well visulized. There is no pericardial effusion. CONCLUSIONS -------- 1. Sinus rhythm. 2. This was a technically adequate study. 3. The left ventricular size is normal. 4. There is mild concentric left ventricular hypertrophy. 5. Overall left ventricular systolic function is normal with, an EF between 55 - 60 %. 6. Increased LAP Grade 2 Diastolic Dysfunction. 7. The right ventricle is normal in size. 8. The right ventricular systolic function is normal. 9. LA is moderately dilated 34-39 ml/m2 10. The right atrial size is normal. 11. The aortic valve is trileaflet and appears structurally normal. 12. The mitral valve is normal. 13. There is trace mitral regurgitation. 14. The tricuspid valve appears structurally normal. 15. Mild tricuspid regurgitation present. 16. Right ventricular systolic pressure is normal at < 35 mmHg. 17. There is no pulmonic regurgitation present. 18. The aortic root size is normal. 19. IVC Not well visulized. 20. There is no pericardial effusion. INSTALLATION TECH: Judy Butler RDCS
[2019-10-07 12:04] LABS: Glucose,Whole Blood 149 mg/dL (75-99)
--- NOTE | 2019-10-07 12:44 | P.PN ---
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 She has a history of hypertension, hyperlipidemia and prior IL in May 2018 with stenting done at that time, these details are not available to us but the patient believes she has 2 other lesions one of 45% and one at 50%. She presented to the emergency department with complaints of overall not feeling well with bilateral hand tingling and left arm pain and mild nausea. Troponins are negative 3 and EKG did not reveal any significant changes. Patient was recommended today to undergo dobutamine echocardiographic study which was performed this morning, results are yet pending. At the time of my examination this morning she is chest pain-free, but does complain of some mild persistent burning in the middle of her chest. Blood pressure 150/70 with a heart rate of 60, 95% on room air. Echocardiogram with Doppler study was performed which revealed a normal left ventricular systolic function. Objective - Vital Signs Vital signs: Vital Signs Temp 97.7 F 10/07/19 12:14 Pulse 59 L 10/07/19 12:14 Resp 16 10/07/19 12:14 BP 150/78 10/07/19 12:14 Pulse Ox 95 10/07/19 12:14 Intake & Output 10/06/19 10/07/19 10/07/19 18:59 06:59 18:59 Intake Total 610 Balance 610 Weight 111.8 kg Intake: Oral 610 Other: # Voids 1 1 1 - Exam PHYSICAL EXAMINATION: GENERAL: 68-year-old female in no acute distress at the time of my examination HEENT: Head is atraumatic, normocephalic. Pupils equal, round. Sclera anicteric. Conjunctiva are clear. Mucous membranes of the mouth are moist. Neck is supple. There is no elevated jugular venous pressure. No carotid bruit is heard. HEART EXAMINATION: Heart S1, S2 normal. No murmur or gallop heard. CHEST EXAMINATION: Lungs are clear to auscultation and precussion. No chest wall tenderness is noted on palpation or with deep breathing. ABDOMEN: Soft, nontender. Bowel sounds are heard. No organomegaly noted. EXTREMITIES: 2+ peripheral pulses with no evidence of peripheral edema and no calf tenderness noted. NEUROLOGIC patient is awake, alert and oriented 3 . . - Labs CBC & Chem 7: 10/05/19 14:18 10/05/19 14:18 Labs: Abnormal Lab Results - Last 24 Hours (Table) 10/06/19 10/06/19 10/07/19 Range/Units 16:58 21:04 05:41 POC Glucose (mg/dL) 187 H 187 H 144 H (75-99) mg/dL 10/07/19 Range/Units 11:52 POC Glucose (mg/dL) 149 H (75-99) mg/dL Assessment and Plan Plan: Assessment and plan #1 symptoms of bilateral hand tingling and burning with associated chest discomfort, atypical for acute coronary syndrome #2 history of coronary artery disease with [place] and stenting in May 2018 #3 hypertension #4 hyperlipidemia Plan Patient underwent dobutamine echocardiographic study today, if the results are negative she may be able to be discharged home, if has a positive stress test she will need further evaluation by cardiac catheterization. Her echo showed normal LV function. DNP note has been reviewed, I agree with a documented findings and plan of care. Patient was seen and examined.
[2019-10-07] MEDS: CARVEDILOL 12.5 MG TAB PO SCH ×2 (12:50→17:15)
[2019-10-07] MEDS: FUROSEMIDE 20 MG TAB PO SCH (12:50)
[2019-10-07] MEDS: LOSARTAN 50 MG TAB PO SCH (12:50)
[2019-10-07] MEDS: ASPIRIN 81 MG PO SCH (12:50)
[2019-10-07] MEDS: CLOPIDOGREL 75 MG TAB PO SCH (12:51)
[2019-10-07] MEDS: PANTOPRAZOLE 40 MG TABLET PO SCH (12:51)
[2019-10-07] MEDS: POTASSIUM CHLORIDE ER 20 MEQ TAB.ER PO SCH (12:51)
--- NOTE | 2019-10-07 13:46 | ECHOS ---
STRESS ECHOCARDIOGRAM DATE OF SERVICE: 10/07/2019 INDICATIONS: Chest pain. MEDICATIONS: BASELINE HEART RATE: 68 BASELINE BLOOD PRESSURE: 162/62 MAXIMUM HEART RATE: 130 MAXIMUM BLOOD PRESSURE: 209/62 85% MPHR: 128 100% MPHR: 150 METS: MAXIMUM STAGE REACHED: TOTAL EXERCISE TIME: CLINICAL INFORMATION: STRESS DATA: Heart rate 68, pressure is 162/62 mmHg. Baseline EKG showed sinus mechanism. Dobutamine infusion at a dose of 10 mcg/kg per minute was initiated and increased to 30 mcg/kg per minute to achieve the heart rate. Max heart rate was 130, which is about 86% of maximum predicted heart rate and maximum blood pressure was 209/62 mmHg. Clinically the patient did have some shortness of breath. The EKG did not show any significant ST or T-wave abnormalities concerning for ischemia. ECHOCARDIOGRAM IMAGES: On echocardiogram images from parasternal long axis view, parasternal short axis view apical 4 chamber and apical 2 chamber view were obtained as the baseline images, at low dose dobutamine infusion, at peak heart rate as well as on recovery. Definity was used to see the endocardium better. The echocardiogram images did not show any evidence of wall motion abnormalities concerning for ischemia. CONCLUSION: 1. Normal EKG in response to dobutamine. 2. Normal echocardiogram in response to dobutamine. 3. Essentially normal dobutamine stress test for the patient. MMODL / IJN: [id number] /
--- NOTE | 2019-10-07 14:09 | P.CNNES ---
History of Present Illness Consult date: 10/07/19 Requesting physician: Nakul Aburto Reason for Consult: Paresthesias History of Present Illness: Patient is a 68-year-old female, who has history of rheumatoid arthritis, states for the last 6 months have been having numbness of the hands off and on. Patient states that when she uses her hands a lot, she gets prickly sensation in the hands. The symptoms have gotten worse in the last 2 weeks, when her numbness in the hands is constant, especially in the last 3 days, and it involves all 10 digits of the hands front and back. She also gets burning pain in the hands, left deltoid, left side of the neck and upper back posteriorly. Patient was given prednisone as outpatient which did not help. Patient came to the hospital because of these symptoms and was started on Solu-Medrol 40 mg IV every 6 hours and her symptoms have improved, but only after she has received steroids. She describes her pain in the hands neck and shoulder about 8/10, which goes down to 2/10 after she is given the steroids. However the pain comes right back after the medications have worn off. Patient denies diabetes, high blood pressure tobacco use or alcohol. Patient states she has history of rheumatoid arthritis diagnosed one year ago, also has developed stiffness and decreased range of motion of her shoulder. She was started on physical therapy for stretching and strengthening about 2 weeks ago after which all the symptoms started. She has stopped physical therapy at this time. She was given stretching exercises of her arms and shoulders, after which all the symptoms started. Patient states that her pain doctor had told her one time that she may have CTS. She has never been checked for it. Patient feels her hands are getting weaker, but does not drop objects. She cannot cut potatoes. Patient states that if she walks long distances, she gets pain in the low back and it hurts with burning in the legs and hips. Patient had an MRI of the lumbar spine performed at [facility], the results of which are unavailable. Patient however had CT of the lumbar spine on 01/31/2019 which revealed disc osteophyte complexes at L2-3, L3 4 causing moderate spinal canal stenosis. Patient had an MRI of the brain on 12/06/2016 performed for possible TIA type symptoms which was negative. Patient had a normal CTA of head and neck on 11/25/2016. Her 2-D echo showed EF 55-60%, left atrium is moderately dilated. Patient's blood tests from 10/05/2019 showed normal electrolytes, CBC, hemoglobin A1c 5.8 on 11/26/2016. AST is normal, ALT borderline at 58. Total cholesterol is 162, LDL 70, HDL 70 and homocystine 6.96.. B12 is 684, TSH is normal cortisol normal. Review of Systems As per HPI. Patient has numbness tingling pain. Denies diplopia cup. She states she has history of vertigo and some problem with the peripheral vision. Speech and language functions are normal. Denies shortness of breath wheezing of cough or chest pain. Past Medical History Past Medical History: GERD/Reflux, Hyperlipidemia, Hypertension, Myocardial Infarction (NM), Osteoarthritis (OA), Rheumatoid Arthritis (RA), Sleep Apnea/CPAP/BIPAP Additional Past Medical History / Comment(s): HX Kidney Stones. POSS DIVERTICULITIS FEW WEEKS AGO. BLOOD PRESSURE FLUCTUATES, LOOP MONITOR PUT IN 3 WEEKS AGO. NARROWING OF SPINE W/ DISC PROB. USES C-PAP Last Myocardial Infarction Date:: 06/28/18 History of Any Multi-Drug Resistant Organisms: None Reported Past Surgical History: Cholecystectomy, Heart Catheterization With Stent, Hysterectomy Additional Past Surgical History / Comment(s): Lithotripsy, basket retrieval of kidney stones, COLONOSCOPY, loop recorder Past Anesthesia/Blood Transfusion Reactions: No Reported Reaction Additional Past Anesthesia/Blood Transfusion Reaction / Comment(s): BLOOD TRANSUFSION WHEN HAVING HER CHILDREN-NO REACTIONS TO BLOOD. Date of Last Stent Placement:: 06/28/18 Past Psychological History: No Psychological Hx Reported Additional Psychological History / Comment(s): Pt resides with her spouse. She is independent. Smoking Status: Former smoker Past Alcohol Use History: None Reported Additional Past Alcohol Use History / Comment(s): STARTED SMOKING AT AGE 18 AND QUIT AT AGE 25 (LITE SMOKER) Past Drug Use History: None Reported - Past Family History Mother Family Medical History: Cancer Additional Family Medical History / Comment(s): HAD LYMPHOMA THEN 15 YEARS LATER HAD SMALL CELL CA(TOMACH) Father Family Medical History: Myocardial Infarction (NM) Additional Family Medical History / Comment(s): PT WAS 9 YEARS OLD WHEN HER FATHER FROM MASSIVE NM. Brother(s) Family Medical History: Coronary Artery Disease (CAD), Myocardial Infarction (NM) Additional Family Medical History / Comment(s): Pt had a 42 yrs old brother of a massive NM and another brother who had CABG at the age of 39yrs. Sister(s) Family Medical History: Cancer Medications and Allergies Home Medications Medication Instructions Recorded Confirmed Type Multivitamins, Thera [Multivitamin 1 tab PO DAILY 10/12/16 10/05/19 History (formulary)] Aspirin 81 mg PO DAILY chew 11/28/16 10/05/19 Rx Clopidogrel [Plavix] 75 mg PO DAILY #30 tab 11/28/16 10/05/19 Rx Furosemide [Lasix] 20 mg PO BID 02/26/19 10/05/19 History Losartan Potassium [Cozaar] 100 mg PO DAILY 02/26/19 10/05/19 History Magnesium 200 mg PO DAILY 02/26/19 10/05/19 History Potassium Chloride [Klor-Con 20] 20 meq PO DAILY 02/26/19 10/05/19 History Diclofenac Sodium [Voltaren] 75 mg PO BID 10/05/19 10/05/19 History Doxazosin [Cardura] 4 mg PO BID 10/05/19 10/05/19 History Ezetimibe [Zetia] 10 mg PO DAILY 10/05/19 10/05/19 History Levothyroxine Sodium [Synthroid] 100 mcg PO DAILY 10/05/19 10/05/19 History Meclizine HCl 25 mg PO Q4H PRN 10/05/19 10/05/19 History Megareds Supplement 1 tab PO DAILY 10/05/19 10/05/19 History Nitroglycerin 0.4 mg SL DAILY PRN 10/05/19 10/05/19 History Pantoprazole [Protonix] 40 mg PO DAILY 10/05/19 10/05/19 History Rosuvastatin [Crestor] 20 mg PO DAILY 10/05/19 10/05/19 History amLODIPine [Norvasc] 2.5 mg PO DAILY 10/05/19 10/05/19 History predniSONE 10 mg PO DAILY 10/05/19 10/05/19 History Carvedilol [Coreg] 6.25 mg PO BID 10/06/19 10/06/19 History Isosorbide Mononitrate [Imdur] 30 mg PO DAILY 10/07/19 10/07/19 History Allergies Allergy/AdvReac Type Severity Reaction Status Date / Time No Known Allergies Allergy Verified 10/05/19 19:18 Physical Examination - Vital Signs Vital Signs: Vital Signs Temp Pulse Resp BP Pulse Ox 10/07/19 12:14 97.7 F 59 L 16 150/78 95 10/07/19 12:00 59 L 16 10/07/19 08:00 58 L 19 10/07/19 07:45 97.7 F 58 L 19 163/74 95 10/07/19 04:00 72 17 169/82 97 10/07/19 00:00 55 L 17 172/60 95 10/06/19 20:00 97.5 F L 55 L 17 125/65 96 10/06/19 16:00 57 L 16 147/60 95 10/06/19 15:00 16 Intake and Output 10/06/19 10/07/19 10/07/19 22:59 06:59 14:59 Intake Total 250 Balance 250 Intake: Oral 250 Other: # Voids 1 1 1 Weight 111.8 kg On examination patient is an elderly female, in no distress. Patient is alert and awake oriented to time place and person. Speech and language functions are normal. Attention and concentration fund of knowledge is adequate. No carotid bruit or murmur. Peripheral pulses present. On cranial exertion pupils are round and reactive to light, visual rob[place]o are full on confrontation, external muscles intact. Face is symmetric and tongue protrudes the midline. Palatal elevation and sensation normal. On muscle strength testing there is no peripheral or drift. Patient has some giveaway weakness with due to pain in bilateral shoulders/deltoid. Biceps triceps and net architect are normal. Tinel sign negative. Hip flexion is 5-bilaterally, knees and ankles are normal. Reflexes are 2 in the upper limbs, 2+ at the knees, 2 at ankles and plantars are downgoing with no clonus. Sensory touch is equal. No ataxia for [id number] testing. Tone and bulk of muscles normal. Results - Laboratory Findings CBC and BMP: 10/05/19 14:18 10/05/19 14:18 Abnormal Lab Findings: Abnormal Labs 10/05/19 10/05/19 10/06/19 14:18 16:01 04:16 Glucose 130 H POC Glucose (mg/dL) ALT 58 H HDL Cholesterol 70 H Ur Leukocyte Esterase Small H Hyaline Casts 3 H Urine Mucus Rare H 10/06/19 10/06/19 10/06/19 06:05 12:09 16:58 Glucose POC Glucose (mg/dL) 142 H 145 H 187 H ALT HDL Cholesterol Ur Leukocyte Esterase Hyaline Casts Urine Mucus 10/06/19 10/07/19 10/07/19 21:04 05:41 11:52 Glucose POC Glucose (mg/dL) 187 H 144 H 149 H ALT HDL Cholesterol Ur Leukocyte Esterase Hyaline Casts Urine Mucus Assessment and Plan Assessment: * 68-year-old female, who has history of rheumatoid arthritis, stiffness of the shoulders, underwent physical therapy a few weeks ago and afterwards has developed paresthesias, numbness, pain in the hands, neck and left side of the shoulder. Her symptoms are suggestive of possible myofascial pain related to aggravation of RA symptoms after she underwent physical therapy for her arthritis. Numbness and tingling of the hands is suggestive of possible carpal tunnel syndrome, probably aggravated by the reasons mentioned above as well. Her neurological examination is relatively nonfocal. Plan: * Patient has had paresthesias with burning and pain in both upper extremities. We will check an MRI of the cervical spine. I would suggest EMG and nerve conductions of bilateral upper extremities as an outpatient to check for possible carpal tunnel syndrome versus polyneuropathy versus radiculopathy. * Patient has a normal B12, thyroid functions and cortisone level. We will check B6, hemoglobin A1c, methylmalonic acid, immunofixation electrophoresis, Sjogren's antibodies, [place], ESR and rheumatoid factor. * Suggest follow-up in the neurology office after discharge for EMG testing.
--- NOTE | 2019-10-07 16:10 | P.PN ---
Subjective Progress Note Date: 10/07/19 A 68-year-old female admitted with atypical chest discomfort, and numbness in the bilateral arms and hands and multiple other medical issues. Evaluated by cardiology. Scheduled for dobutamine echo test. Reports bilateral arm and hand numbness resolved , but continues having "burning wrap around sensation" of her lower chest and upper abdomen. Evaluated by neurology, MRI of C-spine ordered. Objective - Vital Signs Vital signs: Vital Signs Temp 97.7 F 10/07/19 12:14 Pulse 59 L 10/07/19 12:14 Resp 16 10/07/19 12:14 BP 150/78 10/07/19 12:14 Pulse Ox 95 10/07/19 12:14 Intake & Output 10/06/19 10/07/19 10/07/19 18:59 06:59 18:59 Intake Total 610 Balance 610 Weight 111.8 kg Intake: Oral 610 Other: # Voids 1 1 1 - Exam PHYSICAL EXAM: VITAL SIGNS: [As above] GENERAL: Sitting up in bed, no acute distress HEENT: Conjunctivae normal. eyes normal. NECK: No JVD. No thyroid enlargement. No LNs CARDIOVASCULAR: S1, S2 regular..No murmur RESPIRATION: Breath sounds diminished in the bases. No rhonchi or crackles. No bronchial breathing. ABDOMEN: Soft, nontender . No guarding. no masses palpable. No ascites, No hepatosplenomegaly.Bowel sounds heard. LEGS: No edema. no swelling PSYCHIATRY: Alert and oriented X3, mood and affect normal. NERVOUS SYSTEM: Cranial N 2-12 grossly normal. No focal deficits. Strength and sensation grossly intact.. Skin: no rash - Labs CBC & Chem 7: 10/05/19 14:18 10/05/19 14:18 Labs: Abnormal Lab Results - Last 24 Hours (Table) 10/06/19 10/06/19 10/07/19 Range/Units 16:58 21:04 05:41 POC Glucose (mg/dL) 187 H 187 H 144 H (75-99) mg/dL 10/07/19 Range/Units 11:52 POC Glucose (mg/dL) 149 H (75-99) mg/dL Assessment and Plan Assessment: Atypical Chest pain, negative troponins, stress test pending Parasthesias with Bilateral arm and hand numbness, resolved. Wrap around burning sensation lower chest and upper abdomen. Negative computed tomography s can ,C-spine MRI pending CAD, history of [place] with stenting May 2018 Hypertension Hyperlipidemia Plan: Continue on current medication regime, monitoring and symptomatically treatment. Stress test pending. MRI of C-spine pending. Follow closely with cardiology and neurology. Discharge planning in progress pending results of stress test and MRI. The impression and plan of care has been dictated as directed. : I performed a history and examination of this patient, discussed the same with the dictator. I agree with the dictator's note ,documented as a scribe. Any additional findings or plans will be noted.
[2019-10-07 16:52] LABS: Glucose,Whole Blood 214 mg/dL (75-99)
[2019-10-07] MEDS: ATORVASTATIN 20 MG TAB PO SCH (21:00)
[2019-10-07] MEDS: CYCLOBENZAPRINE 5 MG TAB PO PRN (21:01)
[2019-10-07] MEDS: amLODIPine 5 MG TAB PO SCH (21:01)
[2019-10-07 21:11] LABS: Glucose,Whole Blood 135 mg/dL (75-99)
[2019-10-08] MEDS: methylPREDNISolone SOD SUCCI 40 MG/ML 1 ML VIAL IV SCH ×5 (00:03→23:40)
[2019-10-08 06:37] LABS: Glucose,Whole Blood 151 mg/dL (75-99)
[2019-10-08] MEDS: PANTOPRAZOLE 40 MG TABLET PO SCH (06:42)
[2019-10-08] MEDS: INSULIN ASPART (NovoLOG) 100 UNIT/ML VIAL SQ SCH ×4 (06:42→20:16)
[2019-10-08] MEDS: CARVEDILOL 12.5 MG TAB PO SCH (06:42)
[2019-10-08] MEDS: CLOPIDOGREL 75 MG TAB PO SCH (07:44)
[2019-10-08] MEDS: FUROSEMIDE 20 MG TAB PO SCH (07:44)
[2019-10-08] MEDS: ASPIRIN 81 MG PO SCH (07:44)
[2019-10-08] MEDS: LOSARTAN 50 MG TAB PO SCH (07:44)
[2019-10-08] MEDS: POTASSIUM CHLORIDE ER 20 MEQ TAB.ER PO SCH (07:44)
[2019-10-08] MEDS: CYCLOBENZAPRINE 5 MG TAB PO PRN ×2 (09:24→23:40)
[2019-10-08 12:04] LABS: Glucose,Whole Blood 137 mg/dL (75-99)
[2019-10-08] MEDS ORDERED: ONDANSETRON 4 MG/2 ML VIAL IVP PRN (12:37)
[2019-10-08] MEDS ORDERED: KETOROLAC 30 MG/ML 1 ML VIAL IVP PRN (12:38)
--- NOTE | 2019-10-08 12:59 | P.PN ---
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 She has a history of hypertension, hyperlipidemia and prior CA in May 2018 with stenting done at that time, these details are not available to us but the patient believes she has 2 other lesions one of 45% and one at 50%. She presented to the emergency department with complaints of overall not feeling well with bilateral hand tingling and left arm pain and mild nausea. Troponins are negative 3 and EKG did not reveal any significant changes. Patient was recommended today to undergo dobutamine echocardiographic study which was performed this morning, results are yet pending. At the time of my examination this morning she is chest pain-free, but does complain of some mild persistent burning in the middle of her chest. Blood pressure 150/70 with a heart rate of 60, 95% on room air. Echocardiogram with Doppler study was performed which revealed a normal left ventricular systolic function. 10/08/2019 Patient underwent a dobutamine echocardiographic study yesterday which was negative for any reversibility. Hemodynamically stable today. From our perspective she may be able to be discharged home Objective - Vital Signs Vital signs: Vital Signs Temp 97.7 F 10/08/19 07:15 Pulse 51 L 10/08/19 08:00 Resp 17 10/08/19 08:00 BP 150/78 10/08/19 07:15 Pulse Ox 95 10/08/19 07:15 Intake & Output 10/07/19 10/08/19 10/08/19 18:59 06:59 18:59 Intake Total 120 270 Output Total 1 Balance 119 270 Weight 111 kg Intake: IV 10 Invasive Line 1 10 Oral 120 260 Output: Urine/Stool Mix 1 Other: # Voids 1 1 2 - Exam PHYSICAL EXAMINATION: GENERAL: 68-year-old female in no acute distress at the time of my e xamination HEENT: Head is atraumatic, normocephalic. Pupils equal, round. Sclera anicteric. Conjunctiva are clear. Mucous membranes of the mouth are moist. Neck is supple. There is no elevated jugular venous pressure. No carotid bruit is heard. HEART EXAMINATION: Heart S1, S2 normal. No murmur or gallop heard. CHEST EXAMINATION: Lungs are clear to auscultation and precussion. No chest wall tenderness is noted on palpation or with deep breathing. ABDOMEN: Soft, nontender. Bowel sounds are heard. No organomegaly noted. EXTREMITIES: 2+ peripheral pulses with no evidence of peripheral edema and no calf tenderness noted. NEUROLOGIC patient is awake, alert and oriented 3 . . - Labs CBC & Chem 7: 10/05/19 14:18 10/05/19 14:18 Labs: Abnormal Lab Results - Last 24 Hours (Table) 10/06/19 10/07/19 10/07/19 Range/Units 04:16 16:31 21:10 POC Glucose (mg/dL) 214 H 135 H (75-99) mg/dL Rheumatoid Factor 57 H (0-15) IU/mL 10/08/19 10/08/19 Range/Units 06:36 11:45 POC Glucose (mg/dL) 151 H 137 H (75-99) mg/dL Rheumatoid Factor (0-15) IU/mL Assessment and Plan Plan: Assessment and plan #1 symptoms of bilateral hand tingling and burning with associated chest discomfort, atypical for acute coronary syndrome #2 history of coronary artery disease with CA and stenting in May 2018 #3 hypertension #4 hyperlipidemia Plan Patient underwent dobutamine echocardiographic study yesterday which showed normal EKG and response to dobutamine, normal echocardiogram in response to dobutamine, negative stress test. From our perspective patient may be able to be discharged home today. DNP note has been reviewed, I agree with a documented findings and plan of care. Patient was seen and examined.
[2019-10-08] MEDS: METOCLOPRAMIDE 5 MG/ML 2 ML VIAL IVP SCH ×3 (13:02→20:19)
--- NOTE | 2019-10-08 14:16 | P.PN ---
Subjective Progress Note Date: 10/08/19 Patient continues to complain of lower sternal pain goes to the back and underneath her rib cage. She has burning in the left shoulder blade/scapula region. Complaining of pain in the neck, like she is "pulling on the ropes". She has pressure under the breasts. Patient's blood tests shows ESR 17, B12 684, TSH normal. Rheumatoid factor is elevated 57/15. Sjogren's antibodies and [place] negative. Immunoelectrophoresis negative. Patient cannot have MRI of the cervical spine, because of presence of the loop recorder. We also obtained report of her MRI of the lumbar spine without contrast performed at [facility] on 09/20/2019. It revealed multilevel degenerative changes most prominent at L3 4 and L4 5. At L3 4 there is moderate facet degenerative changes and ligamentum flavum hypertrophy bilaterally. There is broad disc bulge with right paracentral disc protrusion component facing anterior thecal sac. There is moderate left and mild right sided neural foraminal narrowing. Encroachment on the anterior inferior left L3 nerve. At L4 5 there is moderate facet joint degenerative changes bilaterally. There is broad disc bulge with a right paracentral disc protrusion component effacing anterior thecal sac and causing mild to moderate bilateral neuroforaminal narrowing. Objective - Vital Signs Vital signs: Vital Signs Temp 97.7 F 10/08/19 07:15 Pulse 51 L 10/08/19 08:00 Resp 17 10/08/19 08:00 BP 150/78 10/08/19 07:15 Pulse Ox 95 10/08/19 07:15 Intake & Output 10/07/19 10/08/19 10/08/19 18:59 06:59 18:59 Intake Total 120 270 Output Total 1 Balance 119 270 Weight 111 kg Intake: IV 10 Invasive Line 1 10 Oral 120 260 Output: Urine/Stool Mix 1 Other: # Voids 1 1 2 - Exam On examination patient's mental status is normal. Her speech is mildly dysarthric, and also has mild left facial asymmetry, which she believes is from previous strokes. This is not new, probably was present yesterday also. Rest of the examination is nonfocal. - Labs CBC & Chem 7: 10/05/19 14:18 10/05/19 14:18 Labs: Abnormal Lab Results - Last 24 Hours (Table) 1210/07/19 10/07/19 Range/Units 04:16 16:31 21:10 POC Glucose (mg/dL) 214 H 135 H (75-99) mg/dL Rheumatoid Factor 57 H (0-15) IU/mL 10/08/19 10/08/19 Range/Units 06:36 11:45 POC Glucose (mg/dL) 151 H 137 H (75-99) mg/dL Rheumatoid Factor (0-15) IU/mL Assessment and Plan Assessment: * 68-year-old female, who has history of rheumatoid arthritis, stiffness of the shoulders, underwent physical therapy a few weeks ago and afterwards has developed paresthesias, numbness, pain in the hands, neck and left side of the shoulder. Her symptoms are suggestive of possible myofascial pain related to aggravation of RA symptoms after she underwent physical therapy for her arthritis. Numbness and tingling of the hands is suggestive of possible carpal tunnel syndrome, probably aggravated by the reasons mentioned above as well. Her neurological examination is relatively nonfocal. Plan: * MRI of the cervical spine is pending, as patient has a loop recorder and has not been cleared by the radiology department yet. I would also suggest suggest MRI of the left shoulder to evaluate for rotator cuff tears versus shoulder arthropathy. These can be performed as an outpatient in the machine that is compatible with her loop recorder. * I would suggest EMG and nerve conductions of bilateral upper extremities as an outpatient to check for possible carpal tunnel syndrome versus polyneuropathy versus radiculopathy. * Patient has a normal B12 674, thyroid functions and cortisone level, immunoelectrophoresis negative, Sjogren's antibodies negative, [place] normal, ESR normal 17. Rheumatoid factor is elevated 57/15. Vitamin B6, hemoglobin A1c, methylmalonic acid are still pending. * Suggest follow-up in the neurology office after discharge for EMG testing.
--- NOTE | 2019-10-08 15:28 | P.PN ---
Subjective Progress Note Date: 10/08/19 A 68-year-old female admitted with atypical chest discomfort, and numbness in the bilateral arms and hands and multiple other medical issues. Evaluated by cardiology. Scheduled for dobutamine echo test. Reports bilateral arm and hand numbness resolved , but continues having "burning wrap around sensation" of her lower chest and upper abdomen. Evaluated by neurology, MRI of C-spine ordered. 10/08/2019 evaluated by neurology with recommendations noted and appreciated. unable to complete MRI a secondary to loop recorder. Maintained on Plavix, aspirin, statin. Dobutamine stress echo reported normal EKG, normal echocardiogram and essentially normal dobutamine stress test. Continues to have significant "wraparound pain" unrelieved by current med regime. Patient reports reproducible mid epigastric deep pressure radiating to under left breast to mid lower back. Also complains of burning of left posterior upper extremity. Additionally ,Reports she has had belching and bloating 1 month. Currently with nausea, dry heaves. Denies palpitations or increased shortness of breath. Denies lightheadedness, dizziness or focal deficits. Objective - Vital Signs Vital signs: Vital Signs Temp 97.7 F 10/08/19 07:15 Pulse 51 L 10/08/19 08:00 Resp 17 10/08/19 08:00 BP 150/78 10/08/19 07:15 Pulse Ox 95 10/08/19 07:15 Intake & Output 10/07/19 10/08/19 10/08/19 18:59 06:59 18:59 Intake Total 120 270 Output Total 1 Balance 119 270 Weight 111 kg Intake: IV 10 Invasive Line 1 10 Oral 120 260 Output: Urine/Stool Mix 1 Other: # Voids 1 1 2 - Exam PHYSICAL EXAM: VITAL SIGNS: [As above] GENERAL: Sitting up in bed, no acute distress HEENT: Conjunctivae normal. eyes normal. Chronic mild left facial asymmetry- not new per patient. NECK: No JVD. No thyroid enlargement. No LNs CARDIOVASCULAR: S1, S2 regular..No murmur RESPIRATION: Breath sounds diminished in the bases. No rhonchi or crackles. No bronchial breathing. ABDOMEN: Soft, nontender . No guarding. no masses palpable. No ascites, No hepatosplenomegaly.Bowel sounds heard. LEGS: No edema. no swelling PSYCHIATRY: Alert and oriented X3, mood and affect normal. NERVOUS SYSTEM: Cranial N 2-12 grossly normal. No focal deficits. Strength and sensation grossly intact.. Skin: no rash - Labs CBC & Chem 7: 10/05/19 14:18 10/05/19 14:18 Labs: Abnormal Lab Results - Last 24 Hours (Table) 10/06/19 10/07/19 10/07/19 Range/Units 04:16 16:31 21:10 POC Glucose (mg/dL) 214 H 135 H (75-99) mg/dL Rheumatoid Factor 57 H (0-15) IU/mL 10/08/19 10/08/19 Range/Units 06:36 11:45 POC Glucose (mg/dL) 151 H 137 H (75-99) mg/dL Rheumatoid Factor (0-15) IU/mL Assessment and Plan Assessment: Atypical Chest pain, negative troponins, stress test pending Parasthesias with Bilateral arm and hand numbness, resolved. Radiating Wrap around burning sensation midepigastric . Negative computed tomography scan , outpatient MRI secondary to loop recorder CAD, history of [place] with stenting May 2018 Hypertension Hyperlipidemia Plan: Continue on current medication regime, monitoring and symptomatically treatment. Stress test pending. MRI performed at [facility] , report currently unavailable. Reglan, Zofran, Sunburst added to med regime. Pain management and surgery consulted. Further recommendations to follow. The impression and plan of care has been dictated as directed. : I performed a history and examination of this patient, discussed the same with the dictator. I agree with the dictator's note ,documented as a scribe. Any additional findings or plans will be noted.
[2019-10-08 16:38] LABS: Glucose,Whole Blood 188 mg/dL (75-99)
[2019-10-08] MEDS: HYDROcodone/APAP 10-325MG 1 EACH TAB PO PRN ×2 (17:29→23:40)
[2019-10-08] MEDS: CARVEDILOL 6.25 MG TAB PO SCH (17:29)
[2019-10-08 19:11] LABS: Hemoglobin A1C 6.5 % (4.0-6.0)
[2019-10-08 20:06] LABS: Glucose,Whole Blood 126 mg/dL (75-99)
[2019-10-08] MEDS: ATORVASTATIN 20 MG TAB PO SCH (20:25)
[2019-10-08] MEDS: amLODIPine 5 MG TAB PO SCH (20:25)
[2019-10-09 06:28] LABS: Glucose,Whole Blood 152 mg/dL (75-99)
[2019-10-09 06:38] LABS: African American GFR (CKD) >90 (>60 ml/min/1.73 sqM); Anion Gap 10 mmol/L; Blood Urea Nitrogen 25 mg/dL (7-17); Carbon Dioxide 24 mmol/L (22-30); Chloride 106 mmol/L (98-107); Glucose 163 mg/dL (74-99); Non-African American GFR(CKD) 81 (>60 ml/min/1.73 sqM); Potassium 3.9 mmol/L (3.5-5.1); Sodium 140 mmol/L (137-145)
[2019-10-09] MEDS: INSULIN ASPART (NovoLOG) 100 UNIT/ML VIAL SQ SCH ×4 (06:38→21:56)
[2019-10-09] MEDS: PANTOPRAZOLE 40 MG TABLET PO SCH (06:38)
[2019-10-09] MEDS: methylPREDNISolone SOD SUCCI 40 MG/ML 1 ML VIAL IV SCH ×3 (06:38→16:47)
[2019-10-09 06:39] LABS: Basophils % (A) 0 %; Eosinophils % (A) 0 %; HCT 37.5 % (34.0-46.0); HGB 12.7 gm/dL (11.4-16.0); Lymphocytes # (A) 1.2 k/uL (1.0-4.8); Lymphocytes % (A) 13 %; MCH 29.6 pg (25.0-35.0); MCV 87.2 fL (80.0-100.0); Monocytes # (A) 0.4 k/uL (0-1.0); Monocytes % (A) 4 %; Neutrophils # (A) 8.1 k/uL (1.3-7.7); Neutrophils % (A) 83 %; Platelet Count 267 k/uL (150-450); RDW 13.4 % (11.5-15.5); WBC 9.8 k/uL (3.8-10.6)
[2019-10-09] MEDS: METOCLOPRAMIDE 5 MG/ML 2 ML VIAL IVP SCH ×4 (06:39→21:55)
[2019-10-09] MEDS: CARVEDILOL 6.25 MG TAB PO SCH ×2 (06:39→16:46)
[2019-10-09] MEDS: HYDROcodone/APAP 10-325MG 1 EACH TAB PO PRN ×3 (06:43→21:56)
[2019-10-09] MEDS: LOSARTAN 50 MG TAB PO SCH (09:00)
[2019-10-09] MEDS: FUROSEMIDE 20 MG TAB PO SCH (09:00)
[2019-10-09] MEDS: CLOPIDOGREL 75 MG TAB PO SCH (09:01)
[2019-10-09] MEDS: POTASSIUM CHLORIDE ER 20 MEQ TAB.ER PO SCH (09:01)
[2019-10-09] MEDS: ASPIRIN 81 MG PO SCH (09:01)
[2019-10-09] MEDS: CYCLOBENZAPRINE 5 MG TAB PO PRN (09:03)
[2019-10-09 12:01] LABS: Glucose,Whole Blood 138 mg/dL (75-99)
[2019-10-09] MEDS: PANTOPRAZOLE 40 MG/10 ML VIAL IVP SCH (12:55)
--- NOTE | 2019-10-09 13:42 | CT ---
EXAMINATION TYPE: CT angio abdomen pelvis DATE OF EXAM: 10/09/2019 COMPARISON: None HISTORY: back pain, epigastric pain CT DLP: 2559.8 mGycm CONTRAST: CTA thoracic and abdominal aorta with 3-D reconstruction is performed without Oral Contrast and witho ut and with IV Contrast, patient injected with 100 mL of Isovue 370. Contrast CTA of the abdominal aorta was performed from the lung bases through the base of the pelvis. 3-D reconstruction imaging obtained at a separate workstation. CONTRAST CT ABDOMEN AND PELVIS ABDOMINAL AORTA: No evidence for abdominal aortic aneurysm. No dissection. Iliac vessels are symmet sumeet and patent. Scattered atheromatous changes detected. Branch vessels are patent. LIVER/GB- No significant abnormality is seen. PANCREAS- No significant abnormality is seen. SPLEEN- No significant abnormality is seen. ADRENALS- No significant abnormality is seen. KIDNEYS/BLADDER- No significant abnormality is seen. BOWEL- No Significant abnormality GENITAL ORGANS: No gross abnormality seen. LYMPH NODES- No greater than 1cm abdominal or pelvic lymph nodes areappreciated. OSSEOUS STRUCTURES- No significant abnormality is seen. OTHER- No significant abnormality is seen. IMPRESSION- No evidence for abdominal aortic aneurysm or dissection. Atheromatous change.
--- NOTE | 2019-10-09 14:01 | P.PN ---
Subjective Progress Note Date: 10/09/19 A 68-year-old female admitted with atypical chest discomfort, and numbness in the bilateral arms and hands and multiple other medical issues. Evaluated by cardiology. Scheduled for dobutamine echo test. Reports bilateral arm and hand numbness resolved , but continues having "burning wrap around sensation" of her lower chest and upper abdomen. Evaluated by neurology, MRI of C-spine ordered. 10/08/2019 evaluated by neurology with recommendations noted and appreciated. unable to complete MRI a secondary to loop recorder. Maintained on Plavix, aspirin, statin. Dobutamine stress echo reported normal EKG, normal echocardiogram and essentially normal dobutamine stress test. Continues to have significant "wraparound pain" unrelieved by current med regime. Patient reports reproducible mid epigastric deep pressure radiating to under left breast to mid lower back. Also complains of burning of left posterior upper extremity. Additionally ,Reports she has had belching and bloating 1 month. Currently with nausea, dry heaves. Denies palpitations or increased shortness of breath. Denies lightheadedness, dizziness or focal deficits. 10/09/2019 continues to have significant mid epigastric pain, persistent nausea. Reports midepigastric pain going through to back instead of wrapping around to back this morning. Evaluated by surgery, scheduled for EGD, tomorrow. Telemetry sinus bradycardia with heart rates 40s to 50s. MRI from [facility] noted-please refer to neurology's note. Objective - Vital Signs Vital signs: Vital Signs Temp 98 F 10/09/19 11:25 Pulse 52 L 10/09/19 11:25 Resp 18 10/09/19 11:25 BP 136/65 10/09/19 11:25 Pulse Ox 98 10/09/19 11:25 Intake & Output 10/08/19 10/09/19 10/09/19 18:59 06:59 18:59 Intake Total 1290 20 520 Balance 1290 20 520 Weight 111.7 kg Intake: IV 30 20 Invasive Line 1 30 20 Oral 1260 520 Other: # Voids 2 1 - Exam PHYSICAL EXAM: VITAL SIGNS: [As above] GENERAL: Sitting up in chair, no acute distress HEENT: Conjunctivae normal. eyes normal. Chronic mild left facial asymmetry- not new per patient. NECK: No JVD. No thyroid enlargement. No LNs CARDIOVASCULAR: S1, S2 regular..No murmur RESPIRATION: Breath sounds diminished in the bases. No rhonchi or crackles. No bronchial breathing. ABDOMEN: Soft, nontender . No guarding. no masses palpable. No ascites, No hepatosplenomegaly.Bowel sounds heard. LEGS: No edema. no swelling PSYCHIATRY: Alert and oriented X3, mood and affect normal. NERVOUS SYSTEM: Cranial N 2-12 grossly normal. No focal deficits. Strength and sensation grossly intact.. Skin: no rash - Labs CBC & Chem 7: 10/09/19 06:05 10/09/19 06:05 Labs: Abnormal Lab Results - Last 24 Hours (Table) 10/06/19 10/08/19 10/08/19 Range/Units 04:15 16:37 20:03 Neutrophils # (1.3-7.7) k/uL BUN (7-17) mg/dL Glucose (74-99) mg/dL POC Glucose (mg/dL) 188 H 126 H (75-99) mg/dL Hemoglobin A1c 6.5 H (4.0-6.0) % 10/09/19 10/09/19 10/09/19 Range/Units 06:05 06:05 06:27 Neutrophils # 8.1 H (1.3-7.7) k/uL BUN 25 H (7-17) mg/dL Glucose 163 H (74-99) mg/dL POC Glucose (mg/dL) 152 H (75-99) mg/dL Hemoglobin A1c (4.0-6.0) % 10/09/19 Range/Units 12:00 Neutrophils # (1.3-7.7) k/uL BUN (7-17) mg/dL Glucose (74-99) mg/dL POC Glucose (mg/dL) 138 H (75-99) mg/dL Hemoglobin A1c (4.0-6.0) % Assessment and Plan Assessment: Atypical Chest pain, negative troponins, stress test pending Parasthesias with Bilateral arm and hand numbness, resolved. Radiating Wrap around burning sensation midepigastric . Negative computed tomography scan , outpatient MRI secondary to loop recorder CAD, history of [place] with stenting May 2018 Hypertension Hyperlipidemia Multilevel degenerative disc disease, moderate neural foraminal narrowing, reported per [facility] MRI, follows with Dr. Davenport orthopedic surgery. Plan: Continue on current medication regime, monitoring and symptomatically treatment. Abdominal CT ordered. Pain management consult in place with recommendations pending. Dr. Hall consulted. EGD scheduled for tomorrow as per surgery.Continue on Reglan, Zofran, [place]. The impression and plan of care has been dictated as directed. : I performed a history and examination of this patient, discussed the same with the dictator. I agree with the dictator's note ,documented as a scribe. Any additional findings or plans will be noted.
--- NOTE | 2019-10-09 14:13 | P.GSCN ---
History of Present Illness Consult date: 10/09/19 Reason for Consult: abdominal pain Requesting physician: Rebecca Hooks History of present illness: CHIEF COMPLAINT: epigastric pain HISTORY OF PRESENT ILLNESS: 68-year-old female who presented to emergency room with a chief complaint of chest pain/epigastric pain. General surgery was consulted for further evaluation. Patient reports she has been having epigastric pain that radiates to the left side of her chest for 2-3 weeks. She also reports some radiation to her back. Patient reports taking aspirin daily. Denies use of NSAIDs. She denies nausea or vomiting. Denies fever or chills. She reports having an EGD in the summer of 2018 at [facility]. She reports that she was found to have a hiatal hernia and a possible "hole in my stomach". She states she was prescribed Protonix at that time. PAST MEDICAL HISTORY: See list. PAST SURGICAL HISTORY: See list. SOCIAL HISTORY: No illicit drug use. REVIEW OF SYSTEMS: CONSTITUTIONAL: Denies fever or chills. HEENT: Denies blurred vision, vision changes, or eye pain. Denies hemoptysis CARDIOVASCULAR: Reports left chest pain. RESPIRATORY: No shortness of breath. GASTROINTESTINAL: Refer to HPI for pertinent findings HEMATOLOGIC: Denies bleeding disorders. GENITOURINARY: Denies any blood in urine. SKIN: Denies pruitis. Denies rash. PHYSICAL EXAM: VITAL SIGNS: Reviewed. GENERAL: Well-developed in no acute distress. HEENT: No sclera icterus. Extraocular movements grossly intact. Moist buccal mucosa. Head is atraumatic, normocephalic. ABDOMEN: Soft. Nondistended. Tenderness with palpation to epigastric region. NEUROLOGIC: Alert and oriented. Cranial nerves II through XII grossly intact. LABORATORY DATA: WBC 9.8. Hemoglobin 12.7. Platelet count 267. ASSESSMENT: 1. Epigastric pain 2. History of cholecystectomy PLAN: -Continue Protonix -Continue diet as tolerated. NPO at midnight. -Patient to undergo EGD tomorrow with Dr. Lim. Nurse practitioner note has been reviewed by physician. Signing provider agrees with the documented findings, assessment, and plan of care. Past Medical History Past Medical History: GERD/Reflux, Hyperlipidemia, Hypertension, Myocardial Infarction (DC), Osteoarthritis (OA), Rheumatoid Arthritis (RA), Sleep Apnea/CPAP/BIPAP Additional Past Medical History / Comment(s): HX Kidney Stones. POSS DIVERTICULITIS FEW WEEKS AGO. BLOOD PRESSURE FLUCTUATES, LOOP MONITOR PUT IN 3 WEEKS AGO. NARROWING OF SPINE W/ DISC PROB. USES C-PAP Last Myocardial Infarction Date:: 06/28/18 History of Any Multi-Drug Resistant Organisms: None Reported Past Surgical History: Cholecystectomy, Heart Catheterization With Stent, Hysterectomy Additional Past Surgical History / Comment(s): Lithotripsy, basket retrieval of kidney stones, COLONOSCOPY, loop recorder Past Anesthesia/Blood Transfusion Reactions: No Reported Reaction Additional Past Anesthesia/Blood Transfusion Reaction / Comm: BLOOD TRANSUFSION WHEN HAVING HER CHILDREN-NO REACTIONS TO BLOOD. Date of Last Stent Placement:: 06/28/18 Past Psychological History: No Psychological Hx Reported Additional Psychological History / Comment(s): Pt resides with her spouse. She is independent. Smoking Status: Former smoker Past Alcohol Use History: None Reported Additional Past Alcohol Use History / Comment(s): STARTED SMOKING AT AGE 18 AND QUIT AT AGE 25 (LITE SMOKER) Past Drug Use History: None Reported - Past Family History Mother Family Medical History: Cancer Additional Family Medical History / Comment(s): HAD LYMPHOMA THEN 15 YEARS LATER HAD SMALL CELL CA(TOMACH) Father Family Medical History: Myocardial Infarction (DC) Additional Family Medical History / Comment(s): PT WAS 9 YEARS OLD WHEN HER FATHER FROM MASSIVE DC. Brother(s) Family Medical History: Coronary Artery Disease (CAD), Myocardial Infarction (DC) Additional Family Medical History / Comment(s): Pt had a 42 yrs old brother of a massive DC and another brother who had CABG at the age of 39yrs. Sister(s) Family Medical History: Cancer Medications and Allergies Home Medications Medication Instructions Recorded Confirmed Type Multivitamins, Thera [Multivitamin 1 tab PO DAILY 10/12/16 10/05/19 History (formulary)] Aspirin 81 mg PO DAILY chew 11/28/16 10/05/19 Rx Clopidogrel [Plavix] 75 mg PO DAILY #30 tab 11/28/16 10/05/19 Rx Furosemide [Lasix] 20 mg PO BID 02/26/19 10/05/19 History Losartan Potassium [Cozaar] 100 mg PO DAILY 02/26/19 10/05/19 History Magnesium 200 mg PO DAILY 02/26/19 10/05/19 History Potassium Chloride [Klor-Con 20] 20 meq PO DAILY 02/26/19 10/05/19 History Diclofenac Sodium [Voltaren] 75 mg PO BID 10/05/19 10/05/19 History Doxazosin [Cardura] 4 mg PO BID 10/05/19 10/05/19 History Ezetimibe [Zetia] 10 mg PO DAILY 10/05/19 10/05/19 History Levothyroxine Sodium [Synthroid] 100 mcg PO DAILY 10/05/19 10/05/19 History Meclizine HCl 25 mg PO Q4H PRN 10/05/19 10/05/19 History Megareds Supplement 1 tab PO DAILY 10/05/19 10/05/19 History Nitroglycerin 0.4 mg SL DAILY PRN 10/05/19 10/05/19 History Pantoprazole [Protonix] 40 mg PO DAILY 10/05/19 10/05/19 History Rosuvastatin [Crestor] 20 mg PO DAILY 10/05/19 10/05/19 History amLODIPine [Norvasc] 2.5 mg PO DAILY 10/05/19 10/05/19 History predniSONE 10 mg PO DAILY 10/05/19 10/05/19 History Carvedilol [Coreg] 6.25 mg PO BID 10/06/19 10/06/19 History Isosorbide Mononitrate [Imdur] 30 mg PO DAILY 10/07/19 10/07/19 History Allergies Allergy/AdvReac Type Severity Reaction Status Date / Time No Known Allergies Allergy Verified 10/05/19 19:18 Surgical - Exam Vital Signs Temp Pulse Resp BP Pulse Ox 98 F 64 18 180/84 96 10/05/19 13:27 10/05/19 13:27 10/05/19 13:27 10/05/19 13:27 10/05/19 13:27 Results - Labs 10/09/19 06:05 10/09/19 06:05 Abnormal Lab Results - Last 24 Hours (Table) 10/06/19 10/08/19 10/08/19 Range/Units 04:15 16:37 20:03 Neutrophils # (1.3-7.7) k/uL BUN (7-17) mg/dL Glucose (74-99) mg/dL POC Glucose (mg/dL) 188 H 126 H (75-99) mg/dL Hemoglobin A1c 6.5 H (4.0-6.0) % 10/09/19 10/09/19 10/09/19 Range/Units 06:05 06:05 06:27 Neutrophils # 8.1 H (1.3-7.7) k/uL BUN 25 H (7-17) mg/dL Glucose 163 H (74-99) mg/dL POC Glucose (mg/dL) 152 H (75-99) mg/dL Hemoglobin A1c (4.0-6.0) % 10/09/19 Range/Units 12:00 Neutrophils # (1.3-7.7) k/uL BUN (7-17) mg/dL Glucose (74-99) mg/dL POC Glucose (mg/dL) 138 H (75-99) mg/dL Hemoglobin A1c (4.0-6.0) % Diabetes panel 10/06/19 10/09/19 Range/Units 04:15 06:05 Sodium 140 (137-145) mmol/L Potassium 3.9 (3.5-5.1) mmol/L Chloride 106 (98-107) mmol/L Carbon Dioxide 24 (22-30) mmol/L BUN 25 H (7-17) mg/dL Creatinine 0.75 (0.52-1.04) mg/dL Glucose 163 H (74-99) mg/dL Hemoglobin A1c 6.5 H (4.0-6.0) % Calcium 9.0 (8.4-10.2) mg/dL Calcium panel 10/09/19 Range/Units 06:05 Calcium 9.0 (8.4-10.2) mg/dL Pituitary panel 10/09/19 Range/Units 06:05 Sodium 140 (137-145) mmol/L Potassium 3.9 (3.5-5.1) mmol/L Chloride 106 (98-107) mmol/L Carbon Dioxide 24 (22-30) mmol/L BUN 25 H (7-17) mg/dL Creatinine 0.75 (0.52-1.04) mg/dL Glucose 163 H (74-99) mg/dL Calcium 9.0 (8.4-10.2) mg/dL Adrenal panel 10/09/19 Range/Units 06:05 Sodium 140 (137-145) mmol/L Potassium 3.9 (3.5-5.1) mmol/L Chloride 106 (98-107) mmol/L Carbon Dioxide 24 (22-30) mmol/L BUN 25 H (7-17) mg/dL Creatinine 0.75 (0.52-1.04) mg/dL Glucose 163 H (74-99) mg/dL Calcium 9.0 (8.4-10.2) mg/dL
--- NOTE | 2019-10-09 14:25 | P.PN ---
Subjective Progress Note Date: 10/09/19 Patient continues to complain of lower sternal pain goes to the back and underneath her rib cage. Patient states that she is undergoing EGD tomorrow to evaluate for the cause of the epigastric pain. I suspect it is from steroids. Her symptoms in the left shoulder blade/scapula region has improved. Patient had a negative cardiac workup as mentioned previously. Patient is currently on aspirin 81 mg, Plavix 75 mg and statins. Also on Protonix. Patient's blood tests shows ESR 17, B12 684, TSH normal. Rheumatoid factor is elevated 57/15. Sjogren's antibodies and [place] negative. Immunoelectrophoresis negative. Patient cannot have MRI of the cervical spine, because of presence of the loop recorder. We also obtained report of her MRI of the lumbar spine without contrast performed at [facility] on 09/20/2019. It revealed multilevel degenerative changes most prominent at L3 4 and L4 5. At L3 4 there is moderate facet degenerative changes and ligamentum flavum hypertrophy bilaterally. There is broad disc bulge with right paracentral disc protrusion component facing anterior thecal sac. There is moderate left and mild right sided neural foraminal narrowing. Encroachment on the anterior inferior left L3 nerve. At L4 5 there is moderate facet joint degenerative changes bilaterally. There is broad disc bulge with a right paracentral disc protrusion component effacing anterior thecal sac and causing mild to moderate bilateral neuroforaminal narrowing. Objective - Vital Signs Vital signs: Vital Signs Temp 98 F 10/09/19 11:25 Pulse 52 L 10/09/19 12:00 Resp 18 10/09/19 12:00 BP 136/65 10/09/19 11:25 Pulse Ox 98 10/09/19 11:25 Intake & Output 10/08/19 10/09/19 10/09/19 18:59 06:59 18:59 Intake Total 1290 20 520 Balance 1290 20 520 Weight 111.7 kg Intake: IV 30 20 Invasive Line 1 30 20 Oral 1260 520 Other: # Voids 2 1 - Exam On examination patient's mental status is normal. Her speech is mildly dysarthric, and also has mild left facial asymmetry, which she believes is from previous strokes. This is not new, probably was present yesterday also. Rest of the examination is nonfocal. - Labs CBC & Chem 7: 10/09/19 06:05 10/09/19 06:05 Labs: Abnormal Lab Results - Last 24 Hours (Table) 10/06/19 10/08/19 10/08/19 Range/Units 04:15 16:37 20:03 Neutrophils # (1.3-7.7) k/uL BUN (7-17) mg/dL Glucose (74-99) mg/dL POC Glucose (mg/dL) 188 H 126 H (75-99) mg/dL Hemoglobin A1c 6.5 H (4.0-6.0) % 10/09/19 10/09/19 10/09/19 Range/Units 06:05 06:05 06:27 Neutrophils # 8.1 H (1.3-7.7) k/uL BUN 25 H (7-17) mg/dL Glucose 163 H (74-99) mg/dL POC Glucose (mg/dL) 152 H (75-99) mg/dL Hemoglobin A1c (4.0-6.0) % 10/09/19 Range/Units 12:00 Neutrophils # (1.3-7.7) k/uL BUN (7-17) mg/dL Glucose (74-99) mg/dL POC Glucose (mg/dL) 138 H (75-99) mg/dL Hemoglobin A1c (4.0-6.0) % Assessment and Plan Assessment: * 68-year-old female, who has history of rheumatoid arthritis, stiffness of the shoulders, underwent physical therapy a few weeks ago and afterwards has developed paresthesias, numbness, pain in the hands, neck and left side of the shoulder. Her symptoms are suggestive of possible myofascial pain related to aggravation of RA symptoms after she underwent physical therapy for her arthritis. Numbness and tingling of the hands is suggestive of possible carpal tunnel syndrome, probably aggravated by the reasons mentioned above as well. * Rheumatoid arthritis * Abnormal hemoglobin A1c 6.5, suggestive of mild diabetes. Plan: * MRI of the cervical spine is pending, as patient has a loop recorder and has not been cleared by the radiology department yet. I would also suggest suggest MRI of the left shoulder to evaluate for rotator cuff tears versus shoulder arthropathy. These can be performed as an outpatient in the machine that is compatible with her loop recorder. * I would suggest EMG and nerve conductions of bilateral upper extremities as an outpatient to check for possible carpal tunnel syndrome versus polyneuropathy versus radiculopathy. * Patient's blood tests showed normal B12 674, methylmalonic acid 0.18 normal, thyroid functions and cortisone level, immunoelectrophoresis negative, Sjo gren's antibodies negative, A[place]IN normal, ESR normal 17. Rheumatoid factor is elevated 57/15. hemoglobin A1c mildly elevated 6.5 suggestive of early diabetes. Vitamin B6 pending. * Patient undergoing EGD in the morning. * Suggest follow-up with a neurologist locally after discharge for EMG testing.
[2019-10-09 17:07] LABS: Glucose,Whole Blood 137 mg/dL (75-99)
[2019-10-09 21:29] LABS: Glucose,Whole Blood 236 mg/dL (75-99)
[2019-10-09] MEDS: PREGABALIN 50 MG CAP PO SCH (21:55)
[2019-10-09] MEDS: amLODIPine 5 MG TAB PO SCH (21:55)
[2019-10-09] MEDS: ATORVASTATIN 20 MG TAB PO SCH (21:55)
[2019-10-10] MEDS: methylPREDNISolone SOD SUCCI 40 MG/ML 1 ML VIAL IV SCH ×3 (00:15→12:43)
[2019-10-10 06:09] LABS: Glucose,Whole Blood 150 mg/dL (75-99)
[2019-10-10] MEDS: CARVEDILOL 6.25 MG TAB PO SCH (06:16)
[2019-10-10] MEDS: INSULIN ASPART (NovoLOG) 100 UNIT/ML VIAL SQ SCH ×2 (06:23→12:45)
[2019-10-10] MEDS: METOCLOPRAMIDE 5 MG/ML 2 ML VIAL IVP SCH ×2 (06:23→12:43)
[2019-10-10] MEDS: PANTOPRAZOLE 40 MG/10 ML VIAL IVP SCH (08:46)
[2019-10-10 08:51] VITALS: RESP 20
[2019-10-10] MEDS ORDERED: PROPOFOL 10 MG/ML 20 ML VIAL IV ONE (11:09)
[2019-10-10] MEDS ORDERED: LIDOCAINE 1% INJ 10MG/ML (20 ML MDV) ONE (11:09)
[2019-10-10] MEDS ORDERED: IV FLUID CONTINUATION 1,000 ML IV ONE (11:10)
--- NOTE | 2019-10-10 11:26 | P.OP ---
Date of Procedure: 10/10/19 Preoperative Diagnosis: Epigastric pain Postoperative Diagnosis: Mild antral gastritis Mild esophagitis Procedure(s) Performed: EGD Anesthesia: MAC Surgeon: Dillon Lim Pathology: other (Antrum, esophagus) Condition: stable Disposition: PACU Description of Procedure: The patient's placed on the endoscopy table in the lateral position. She received IV sedation. The gastroscope placed oropharynx and passed in the esophagus and into the stomach. Scope was then placed through the pylorus. The first and second portion of the duodenum appeared normal. Scope was then brought back the antrum and this appeared mildly inflamed. A biopsies performed. Scope was then retroflexed and the remainder of the stomach appeared normal. The GE junction was at 39 cm. The distal esophagus appeared mildly inflamed this was biopsied. The proximal esophagus appeared normal. Scope was withdrawn for patient.
[2019-10-10 11:42] VITALS: BP 144/78; PULSE 55; TEMP 96.9
[2019-10-10 12:27] LABS: Glucose,Whole Blood 136 mg/dL (75-99)
[2019-10-10] MEDS: CLOPIDOGREL 75 MG TAB PO SCH (12:42)
[2019-10-10] MEDS: ASPIRIN 81 MG PO SCH (12:42)
[2019-10-10] MEDS: FUROSEMIDE 20 MG TAB PO SCH (12:42)
[2019-10-10] MEDS: LOSARTAN 50 MG TAB PO SCH (12:42)
[2019-10-10] MEDS: POTASSIUM CHLORIDE ER 20 MEQ TAB.ER PO SCH (12:42)
[2019-10-10] MEDS: PREGABALIN 50 MG CAP PO SCH (12:43)
--- NOTE | 2019-10-10 15:11 | P.DS ---
Providers Date of admission: 10/08/19 07:49 Expected date of discharge: 10/10/19 Attending physician: Nakul Aburto Consults: 10/05/19 20:06 Consult Physician Urgent Consulting Provider: [facility] Consult Reason/Comments: chest pain similar to previous ACS Do you want consulting provider notified?: Yes, Notify in am 10/06/19 17:15 Consult Physician Routine Consulting Provider: Katt Crane Consult Reason/Comments: paresthesias Do you want consulting provider notified?: Yes 10/08/19 14:21 Consult Physician Routine Consulting Provider: Dillon Lim Consult Reason/Comments: Mid epigastric pain, radiating Do you want consulting provider notified?: Yes 10/08/19 14:28 Consult Physician Routine Consulting Provider: Ash Hu Consult Reason/Comments: pain management Do you want consulting provider notified?: Yes 10/09/19 13:06 Consult Physician Urgent Consulting Provider: Chris Hall Consult Reason/Comments: chest pain Do you want consulting provider notified?: Yes Primary care physician: Nakul Aburto [facility] Course: Final Diagnoses: Atypical Chest pain, negative troponins, stress test -outpatient Parasthesias with Bilateral arm and hand numbness, resolved. Radiating Wrap around burning sensation midepigastric . Negative computed tomography scan , outpatient MRI secondary to loop recorder CAD, history of SD with stenting May 2018 Hypertension Hyperlipidemia Multilevel degenerative disc disease, moderate neural foraminal narrowing, reported per [facility] MRI, follows with Dr. Davenport orthopedic surgery. Hospital course:A 68-year-old female admitted with atypical chest discomfort, and numbness in the bilateral arms and hands and multiple other medical issues. Evaluated by cardiology. Scheduled for dobutamine echo test. Reports bilateral arm and hand numbness resolved , but continues having "burning wrap around sensation" of her lower chest and upper abdomen. Evaluated by neurology, MRI of C-spine ordered. 10/08/2019 evaluated by neurology with recommendations noted and appreciated. unable to complete MRI a secondary to loop recorder. Maintained on Plavix, aspirin, statin. Dobutamine stress echo reported normal EKG, normal echocardiogram and essentially normal dobutamine stress test. Continues to have significant "wraparound pain" unrelieved by current med regime. Patient reports reproducible mid epigastric deep pressure radiating to under left breast to mid lower back. Also complains of burning of left posterior upper extremity. Additionally ,Reports she has had belching and bloating 1 month. Currently with nausea, dry heaves. Denies palpitations or increased shortness of breath. Denies lightheadedness, dizziness or focal deficits. 10/09/2019 continues to have significant mid epigastric pain, persistent nausea. Reports midepigastric pain going through to back instead of wrapping around to back this morning. Evaluated by surgery, scheduled for EGD, tomorrow. Telemetry sinus bradycardia with heart rates 40s to 50s. MRI from [facility] noted-please refer to neurology's note. Status post EGD reporting mild antral gastritis, biopsies obtained. Tolerated procedure well. Patient instructed to follow-up with Dr. Aburto tomorrow and orthopedic surgeon Dr. Davenport within the week. Patient is being discharged home in a stable condition with guarded prognosis, pending clearance from surgery. EXAM: GENERAL: Alert and oriented 3, no acute distress CARDIOVASCULAR: S1, S2 regular..No murmur RESPIRATION: Breath sounds diminished in the bases. No rhonchi or crackles. No wheezing. ABDOMEN: Soft, nontender . No guarding. no masses palpable. Bowel sounds heard. NERVOUS SYSTEM: No focal deficits. The impression and plan of care has been dictated as directed. : I performed a history and examination of this patient, discussed the same with the dictator. I agree with the dictator's note ,documented as a scribe. Any additional findings or plans will be noted. Patient Condition at Discharge: Stable Plan - Discharge Summary New Discharge Prescriptions: New Cyclobenzaprine [Flexeril] 5 mg PO TID PRN #21 tab PRN Reason: Muscle Spasm Atorvastatin [Lipitor] 20 mg PO HS #30 tab amLODIPine [Norvasc] 5 mg PO HS #30 tab predniSONE 10 mg PO DIRECTED #30 tab Pregabalin [Lyrica] 50 mg PO BID #6 cap HYDROcodone/APAP 10-325MG [[place] 10-325] 1 each PO Q6H PRN #12 tab PRN Reason: Pain Continue Multivitamins, Thera [Multivitamin (formulary)] 1 tab PO DAILY Clopidogrel [Plavix] 75 mg PO DAILY #30 tab Aspirin 81 mg PO DAILY chew Furosemide [Lasix] 20 mg PO BID Losartan Potassium [Cozaar] 100 mg PO DAILY Magnesium 200 mg PO DAILY Potassium Chloride [Klor-Con 20] 20 meq PO DAILY Megareds Supplement 1 tab PO DAILY Levothyroxine Sodium [Synthroid] 100 mcg PO DAILY Meclizine HCl 25 mg PO Q4H PRN PRN Reason: DIZZINESS Pantoprazole [Protonix] 40 mg PO DAILY Nitroglycerin 0.4 mg SL DAILY PRN PRN Reason: Chest Pain Carvedilol [Coreg] 6.25 mg PO BID predniSONE 10 mg PO DAILY #0 Discontinued Rosuvastatin [Crestor] 20 mg PO DAILY Diclofenac Sodium [Voltaren] 75 mg PO BID Ezetimibe [Zetia] 10 mg PO DAILY amLODIPine [Norvasc] 2.5 mg PO DAILY Doxazosin [Cardura] 4 mg PO BID Isosorbide Mononitrate [Imdur] 30 mg PO DAILY Discharge Medication List Multivitamins, Thera [Multivitamin (formulary)] 1 tab PO DAILY 10/12/16 [History] Aspirin 81 mg PO DAILY chew 11/28/16 [Rx] Clopidogrel [Plavix] 75 mg PO DAILY #30 tab 11/28/16 [Rx] Furosemide [Lasix] 20 mg PO BID 02/26/19 [History] Losartan Potassium [Cozaar] 100 mg PO DAILY 02/26/19 [History] Magnesium 200 mg PO DAILY 02/26/19 [History] Potassium Chloride [Klor-Con 20] 20 meq PO DAILY 02/26/19 [History] Levothyroxine Sodium [Synthroid] 100 mcg PO DAILY 10/05/19 [History] Meclizine HCl 25 mg PO Q4H PRN 10/05/19 [History] Megareds Supplement 1 tab PO DAILY 10/05/19 [History] Nitroglycerin 0.4 mg SL DAILY PRN 10/05/19 [History] Pantoprazole [Protonix] 40 mg PO DAILY 10/05/19 [History] Carvedilol [Coreg] 6.25 mg PO BID 10/06/19 [History] Atorvastatin [Lipitor] 20 mg PO HS #30 tab 10/10/19 [Rx] Cyclobenzaprine [Flexeril] 5 mg PO TID PRN #21 tab 10/10/19 [Rx] HYDROcodone/APAP 10-325MG [[place] 10-325] 1 each PO Q6H PRN #12 tab 10/10/19 [Rx] Pregabalin [Lyrica] 50 mg PO BID #6 cap 10/10/19 [Rx] amLODIPine [Norvasc] 5 mg PO HS #30 tab 10/10/19 [Rx] predniSONE 10 mg PO DIRECTED #30 tab 10/10/19 [Rx] predniSONE 10 mg PO DAILY #0 10/10/19 [Rx] Follow up Appointment(s)/Referral(s): NeurologistDr. of patient's choice [Other] - 1 Week () Gary Devlin MD [STAFF PHYSICIAN] - 10/24/19 10:45 am () Nakul Aburto MD [Primary Care Provider] - 10/11/19 11:15 am (Monday) Alejandro Davenport DO [Doctor of Osteopathic Medicine] - 1-2 Days (Please schedule appointment prior to discharge) Dillon Lim MD [STAFF PHYSICIAN] - 10/21/19 9:50 am (EGD follow up appointment. ) Patient Instructions/Handouts: *Surgery [facility] - (Anesthesia) Endoscopy Discharge Instructions, Paresthesia (ED), Epigastric Pain (ED), Nuclear Stress Test (DC) Activity/Diet/Wound Care/Special Instructions: Pending surgery clearance and final DC recommendations
--- NOTE | 2019-10-10 15:29 | P.CNPUL ---
History of Present Illness Consult date: 10/10/19 Reason for consult: dyspnea, cough, obstructive sleep apnea Chief complaint: Chest pain , obstructive sleep apnea History of present illness: this is a 68-year-old female admitted with atypical chest discomfort, and numb ness in the bilateral arms and hands and multiple other medical issues. Evaluated by cardiology. Scheduled for dobutamine echo test. Reports bilateral arm and hand numbness resolved , but continues having "burning wrap around sensation" of her lower chest and upper abdomen. Evaluated by neurology, MRI of C-spine ordered. she has significant history of sleep apnea she uses CPAP machine at home, also complain of mid epigastric pain, persistent nausea. Reports midepigastric pain going through to back instead of wrapping around to back this morning. Evaluated by surgery, scheduled for EGD, however from respiratory standpoint no shortness of breath no cough or chest pain is present her sleep apnea however needs to be readjusted will evaluated further outpatient basis currently patient is pain-free and denies any shortness of breath and likely will be discharged later on today Review of Systems All systems: negative Past Medical History Past Medical History: GERD/Reflux, Hyperlipidemia, Hypertension, Myocardial Infarction ([place]), Osteoarthritis (OA), Rheumatoid Arthritis (RA), Sleep Apnea/CPAP/BIPAP Additional Past Medical History / Comment(s): HX Kidney Stones. POSS DIVERTICU LITIS FEW WEEKS AGO. BLOOD PRESSURE FLUCTUATES, LOOP MONITOR PUT IN 3 WEEKS AGO. NARROWING OF SPINE W/ DISC PROB. USES C-PAP Last Myocardial Infarction Date:: 06/28/18 History of Any Multi-Drug Resistant Organisms: None Reported Past Surgical History: Cholecystectomy, Heart Catheterization With Stent, Hysterectomy Additional Past Surgical History / Comment(s): Lithotripsy, basket retrieval of kidney stones, COLONOSCOPY, loop recorder Past Anesthesia/Blood Transfusion Reactions: No Reported Reaction Additional Past Anesthesia/Blood Transfusion Reaction / Comment(s): BLOOD TRANSUFSION WHEN HAVING HER CHILDREN-NO REACTIONS TO BLOOD. Date of Last Stent Placement:: 06/28/18 Past Psychological History: No Psychological Hx Reported Additional Psychological History / Comment(s): Pt resides with her spouse. She is independent. Smoking Status: Former smoker Past Alcohol Use History: None Reported Additional Past Alcohol Use History / Comment(s): STARTED SMOKING AT AGE 18 AND QUIT AT AGE 25 (LITE SMOKER) Past Drug Use History: None Reported - Past Family History Mother Family Medical History: Cancer Additional Family Medical History / Comment(s): HAD LYMPHOMA THEN 15 YEARS LATER HAD SMALL CELL CA(TOMACH) Father Family Medical History: Myocardial Infarction ([place]) Additional Family Medical History / Comment(s): PT WAS 9 YEARS OLD WHEN HER FATHER FROM MASSIVE [place]. Brother(s) Family Medical History: Coronary Artery Disease (CAD), Myocardial Infarction ([place]) Additional Family Medical History / Comment(s): Pt had a 42 yrs old brother of a massive [place] and another brother who had CABG at the age of 39yrs. Sister(s) Family Medical History: Cancer Medications and Allergies Home Medications Medication Instructions Recorded Confirmed Type Multivitamins, Thera [Multivitamin 1 tab PO DAILY 10/12/16 10/05/19 History (formulary)] Aspirin 81 mg PO DAILY chew 11/28/16 10/05/19 Rx Clopidogrel [Plavix] 75 mg PO DAILY #30 tab 11/28/16 10/05/19 Rx Furosemide [Lasix] 20 mg PO BID 02/26/19 10/05/19 History Losartan Potassium [Cozaar] 100 mg PO DAILY 02/26/19 10/05/19 History Magnesium 200 mg PO DAILY 02/26/19 10/05/19 History Potassium Chloride [Klor-Con 20] 20 meq PO DAILY 02/26/19 10/05/19 History Levothyroxine Sodium [Synthroid] 100 mcg PO DAILY 10/05/19 10/05/19 History Meclizine HCl 25 mg PO Q4H PRN 10/05/19 10/05/19 History Megareds Supplement 1 tab PO DAILY 10/05/19 10/05/19 History Nitroglycerin 0.4 mg SL DAILY PRN 10/05/19 10/05/19 History Pantoprazole [Protonix] 40 mg PO DAILY 10/05/19 10/05/19 History Carvedilol [Coreg] 6.25 mg PO BID 10/06/19 10/06/19 History Atorvastatin [Lipitor] 20 mg PO HS #30 tab 10/10/19 Rx Cyclobenzaprine [Flexeril] 5 mg PO TID PRN #21 tab 10/10/19 Rx HYDROcodone/APAP 10-325MG [[place] 1 each PO Q6H PRN #12 tab 10/10/19 Rx 10-325] Pregabalin [Lyrica] 50 mg PO BID #6 cap 10/10/19 Rx amLODIPine [Norvasc] 5 mg PO HS #30 tab 10/10/19 Rx predniSONE 10 mg PO DIRECTED #30 tab 10/10/19 Rx predniSONE 10 mg PO DAILY #0 10/10/19 10/05/19 Rx Allergies Allergy/AdvReac Type Severity Reaction Status Date / Time No Known Allergies Allergy Verified 10/05/19 19:18 Physical Exam Vitals: Vital Signs Temp Pulse Resp BP Pulse Ox 10/10/19 11:45 55 L 10/10/19 11:42 96.9 F L 55 L 20 144/78 93 L 10/10/19 08:00 97.5 F L 52 L 20 144/67 95 10/10/19 04:00 97.7 F 56 L 16 160/77 95 10/10/19 03:41 51 L 18 10/10/19 00:00 98.1 F 52 L 16 170/76 94 L 10/09/19 20:00 97.8 F 55 L 18 143/65 95 10/09/19 16:00 97.8 F 53 L 18 177/75 96 Intake and Output 10/10/19 10/10/19 10/10/19 06:59 14:59 22:59 Intake Total 240 50 Output Total 550 Balance 240 -500 Intake: IV 50 Oral 240 Output: Urine 550 Other: # Voids 2 Weight 111.6 kg - Constitutional General appearance: cooperative, morbidly obese - EENT Eyes: EOMI, PERRLA, poor dentition, normal appearance ENT: normal oropharynx Ears: bilateral: normal - Neck Neck: normal ROM Carotids: bilateral: upstroke normal Thyroid: bilateral: normal size - Respiratory Respiratory: bilateral: CTA - Cardiovascular Rhythm: regular Heart sounds: normal: S1, S2 - Gastrointestinal General gastrointestinal: soft - Neurologic Neurologic: CNII-XII intact - Musculoskeletal Musculoskeletal: gait normal, generalized weakness - Psychiatric Psychiatric: A&O x's 3, appropriate affect, intact judgment & insight Results - Laboratory Findings CBC and BMP: 10/09/19 06:05 10/09/19 06:05 PT/INR, D-dimer PT 10.0 sec (9.0-12.0) 10/05/19 14:18 INR 0.9 (<1.2) 10/05/19 14:18 D-Dimer 0.41 mg/L FEU (<0.60) 10/05/19 14:18 Abnormal lab findings: Abnormal Labs 10/05/19 10/05/19 10/06/19 14:18 16:01 04:15 Neutrophils # BUN Glucose 130 H POC Glucose (mg/dL) Hemoglobin A1c 6.5 H ALT 58 H HDL Cholesterol Ur Leukocyte Esterase Small H Hyaline Casts 3 H Urine Mucus Rare H Rheumatoid Factor 10/06/19 10/06/19 10/06/19 04:16 04:16 06:05 Neutrophils # BUN Glucose POC Glucose (mg/dL) 142 H Hemoglobin A1c ALT HDL Cholesterol 70 H Ur Leukocyte Esterase Hyaline Casts Urine Mucus Rheumatoid Factor 57 H 10/06/19 10/06/19 10/06/19 12:09 16:58 21:04 Neutrophils # BUN Glucose POC Glucose (mg/dL) 145 H 187 H 187 H Hemoglobin A1c ALT HDL Cholesterol Ur Leukocyte Esterase Hyaline Casts Urine Mucus Rheumatoid Factor 10/07/19 10/07/19 10/07/19 05:41 11:52 16:31 Neutrophils # BUN Glucose POC Glucose (mg/dL) 144 H 149 H 214 H Hemoglobin A1c ALT HDL Cholesterol Ur Leukocyte Esterase Hyaline Casts Urine Mucus Rheumatoid Factor 10/07/19 10/08/19 10/08/19 21:10 06:36 11:45 Neutrophils # BUN Glucose POC Glucose (mg/dL) 135 H 151 H 137 H Hemoglobin A1c ALT HDL Cholesterol Ur Leukocyte Esterase Hyaline Casts Urine Mucus Rheumatoid Factor 10/08/19 10/08/19 10/09/19 16:37 20:03 06:05 Neutrophils # 8.1 H BUN Glucose POC Glucose (mg/dL) 188 H 126 H Hemoglobin A1c ALT HDL Cholesterol Ur Leukocyte Esterase Hyaline Casts Urine Mucus Rheumatoid Factor 10/09/19 10/09/19 10/09/19 06:05 06:27 12:00 Neutrophils # BUN 25 H Glucose 163 H POC Glucose (mg/dL) 152 H 138 H Hemoglobin A1c ALT HDL Cholesterol Ur Leukocyte Esterase Hyaline Casts Urine Mucus Rheumatoid Factor 10/09/19 10/09/19 10/10/19 17:06 21:27 06:07 Neutrophils # BUN Glucose POC Glucose (mg/dL) 137 H 236 H 150 H Hemoglobin A1c ALT HDL Cholesterol Ur Leukocyte Esterase Hyaline Casts Urine Mucus Rheumatoid Factor 10/10/19 12:26 Neutrophils # BUN Glucose POC Glucose (mg/dL) 136 H Hemoglobin A1c ALT HDL Cholesterol Ur Leukocyte Esterase Hyaline Casts Urine Mucus Rheumatoid Factor - Diagnostic Findings Chest x-ray: report reviewed, image reviewed CT scan - chest: report reviewed, image reviewed (the computed tomography scan of the chest will negative for any infiltrate no masses seen some linear atelectasis identified, assistive of scarring, no masslike growth have been noted) Assessment and Plan Assessment: Obstructive sleep apnea Severe morbid obesity atypical chest pain GERD Plan: Agree with discharge planning and follow-up on outpatient basis to adjust the CPAP machine Time with Patient: Greater than 30
--- NOTE | 2019-10-10 16:31 | P.PN ---
Subjective Progress Note Date: 10/10/19 Patient continues to complain of left lower scapular burning pain, which gets worse at times. Patient states her numbness of the hands have mostly resolved. Patient underwent EGD for epigastric pain, which revealed mild antral gastritis, mild esophagitis. I suspect it is from steroids. Patient had a negative cardiac workup as mentioned previously. Patient is currently on aspirin 81 mg, Plavix 75 mg and statins. Also on Protonix. Patient's blood tests shows ESR 17, B12 684, TSH normal. Rheumatoid factor is elevated 57/15. Sjogren's antibodies and AUSTIN negative. Immunoelectrophoresis negative. Patient cannot have MRI of the cervical spine, because of presence of the loop recorder. We also obtained report of her MRI of the lumbar spine without contrast performed at [facility] on 09/20/2019. It revealed multilevel degenerative changes most prominent at L3 4 and L4 5. At L3 4 there is moderate facet degenerative changes and ligamentum flavum hypertrophy bilaterally. There is broad disc bulge with right paracentral disc protrusion component facing anterior thecal sac. There is moderate left and mild right sided neural foraminal narrowing. Encroachment on the anterior inferior left L3 nerve. At L4 5 there is moderate facet joint degenerative changes bilaterally. There is broad disc bulge with a right paracentral disc protrusion component effacing anterior thecal sac and causing mild to moderate bilateral neuroforaminal narrowing. Objective - Vital Signs Vital signs: Vital Signs Temp 96.9 F L 10/10/19 11:42 Pulse 55 L 10/10/19 11:45 Resp 20 10/10/19 11:42 BP 144/78 10/10/19 11:42 Pulse Ox 93 L 10/10/19 11:42 Intake & Output 10/09/19 10/10/19 10/10/19 18:59 06:59 18:59 Intake Total 620 240 290 Output Total 550 Balance 620 240 -260 Weight 111.6 kg Intake: IV 50 Oral 620 240 240 Output: Urine 550 Other: # Voids 2 - Exam On examination patient's mental status is normal. Her speech is mildly dysarthric, and also has mild left facial asymmetry, which she believes is from previous strokes. This is not new, an old finding. Rest of the examination is nonfocal. - Labs CBC & Chem 7: 10/09/19 06:05 10/09/19 06:05 Labs: Abnormal Lab Results - Last 24 Hours (Table) 10/09/19 10/09/19 10/10/19 Range/Units 17:06 21:27 06:07 POC Glucose (mg/dL) 137 H 236 H 150 H (75-99) mg/dL 10/10/19 Range/Units 12:26 POC Glucose (mg/dL) 136 H (75-99) mg/dL Assessment and Plan Assessment: * 68-year-old female, who has history of rheumatoid arthritis, stiffness of the shoulders, underwent physical therapy a few weeks ago and afterwards has developed paresthesias, numbness, pain in the hands, neck and left side of the shoulder. Her symptoms are suggestive of possible myofascial pain related to aggravation of RA symptoms after she underwent physical therapy for her arthritis. Numbness and tingling of the hands is suggestive of possible carpal tunnel syndrome, probably aggravated by the reasons mentioned above as well. * Rheumatoid arthritis * Abnormal hemoglobin A1c 6.5, suggestive of mild diabetes. Plan: * Suggest outpatient MRI of the cervical spine and perhaps of the left shoulder. * Patient's hands paresthesias have much improved. If symptoms worsen, then patient will need outpatient EMG and nerve conductions of bilateral upper extremities to check for possible carpal tunnel syndrome versus polyneuropathy versus radiculopathy. * Patient's blood tests showed normal B12 674, methylmalonic acid 0.18 normal, thyroid functions and cortisone level, immunoelectrophoresis negative, Sjogren's antibodies negative, AUSTIN normal, ESR normal 17. Rheumatoid factor is elevated 57/15. hemoglobin A1c mildly elevated 6.5 suggestive of early diabetes. Vitamin B6 pending. * Continue Lyrica 50 mg twice a day. * Suggest follow-up with a neurologist locally after discharge for EMG testing. Neurologically clear otherwise.
== END 2019-10-10 16:21 | disposition home or self-care (01) ==
LOC: EC 12:33 → 3SCARD 18:07 → UNDOADMOB 18:07 → OBSVTOIN 10-08 07:49 → INTOOBSV 10-08 07:49 → UNDODISIN 10-10 16:21
PROVIDERS: ADMIT Family Medicine; ATTEND Family Medicine
DX: R07.89 Other chest pain (principal); R20.2 Paresthesia of skin; Z68.41 Body mass index [BMI] 40.0-44.9, adult; E66.01 Morbid (severe) obesity due to excess calories; E78.5 Hyperlipidemia, unspecified; G47.33 Obstructive sleep apnea (adult) (pediatric); I10 Essential (primary) hypertension; I25.2 Old myocardial infarction; K20.9 Esophagitis, unspecified; K29.70 Gastritis, unspecified, without bleeding; K44.9 Diaphragmatic hernia without obstruction or gangrene; M06.9 Rheumatoid arthritis, unspecified; M19.90 Unspecified osteoarthritis, unspecified site; M25.78 Osteophyte, vertebrae; M48.061 Spinal stenosis, lumbar region without neurogenic claudication; M54.2 Cervicalgia; R00.1 Bradycardia, unspecified; Z79.02 Long term (current) use of antithrombotics/antiplatelets; Z79.82 Long term (current) use of aspirin; Z79.890 Hormone replacement therapy; Z79.899 Other long term (current) drug therapy; Z82.49 Family history of ischemic heart disease and other diseases of the circulatory system; Z90.49 Acquired absence of other specified parts of digestive tract; Z95.5 Presence of coronary angioplasty implant and graft; Z87.442 Personal history of urinary calculi; Z87.891 Personal history of nicotine dependence; Z80.7 Family history of other malignant neoplasms of lymphoid, hematopoietic and related tissues; Z80.0 Family history of malignant neoplasm of digestive organs
CPT/HCPCS: 96376 ×4; 96374; 96375 ×2; 96361; 99285; 36415; 93005; 93306; 84207; 83921; 85379; 88305; 83880; 80061; 80053; 80048; 85652 ×2; 84443; 82533; 82607; 83735; 84484 ×2; 85025 ×2; 85610; 85730; 86431; 81001; 86038; 86235; 86334; 83036; 71046; 70450; 71250; 74174; 43239; G0378 ×6; J2765 ×3; C8930; J1250; J2920 ×6; J2405; J2001; J1885; J2704; C9113 ×2; Q9950; Q9967; 93351; 96360

== ENCOUNTER 2020-02-18 10:24 | Inpatient (IN) | payer MEDICARE ==
[2020-02-18] MEDS ORDERED: NITROGLYCERIN SL TABS 0.4 MG TAB SUBLINGUAL PRN (15:33)
[2020-02-18 16:38] LABS: Basophils % (A) 0 %; Eosinophils # (A) 0.1 k/uL (0-0.7); Eosinophils % (A) 1 %; HCT 40.2 % (34.0-46.0); HGB 13.2 gm/dL (11.4-16.0); Lymphocytes # (A) 2.5 k/uL (1.0-4.8); Lymphocytes % (A) 27 %; MCH 29.4 pg (25.0-35.0); MCHC 32.8 g/dL (31.0-37.0); MCV 89.7 fL (80.0-100.0); Mean Platelet Volume 8.2; Monocytes # (A) 0.5 k/uL (0-1.0); Monocytes % (A) 5 %; Neutrophils # (A) 6.2 k/uL (1.3-7.7); Neutrophils % (A) 65 %; Platelet Count 378 k/uL (150-450); RBC 4.48 m/uL (3.80-5.40); RDW 13.8 % (11.5-15.5); WBC 9.5 k/uL (3.8-10.6)
[2020-02-18 16:47] LABS: ALT 27 U/L (4-34); AST 28 U/L (14-36); African American GFR (CKD) >90 (>60 ml/min/1.73 sqM); Albumin 4.2 g/dL (3.5-5.0); Alkaline Phosphatase 104 U/L (38-126); Anion Gap 8 mmol/L; Blood Urea Nitrogen 10 mg/dL (7-17); Calcium 9.3 mg/dL (8.4-10.2); Carbon Dioxide 28 mmol/L (22-30); Chloride 102 mmol/L (98-107); Glucose 102 mg/dL (74-99); Non-African American GFR(CKD) 89 (>60 ml/min/1.73 sqM); Potassium 3.8 mmol/L (3.5-5.1); Sodium 138 mmol/L (137-145); Total Bilirubin 0.7 mg/dL (0.2-1.3); Total Protein 6.9 g/dL (6.3-8.2)
[2020-02-18] MEDS: CARVEDILOL 6.25 MG TAB PO SCH (18:16)
[2020-02-18] MEDS: PANTOPRAZOLE 40 MG/10 ML VIAL IVP SCH (18:16)
[2020-02-18] MEDS: GABAPENTIN 300 MG CAP PO SCH ×2 (18:16→23:11)
[2020-02-18] MEDS: SODIUM CHLORIDE 0.9% 1,000 ML IV SCH (18:18)
[2020-02-18] MEDS: INSULIN ASPART (NovoLOG) 100 UNIT/ML VIAL SQ SCH ×2 (18:20→21:03)
[2020-02-18 20:03] LABS: Glucose,Whole Blood 116 mg/dL (75-99)
[2020-02-19] MEDS: LEVOTHYROXINE 100 MCG TAB PO SCH (06:01)
[2020-02-19 06:59] LABS: Glucose,Whole Blood 137 mg/dL (75-99)
[2020-02-19 07:01] LABS: Basophils % (A) 1 %; Eosinophils # (A) 0.1 k/uL (0-0.7); Eosinophils % (A) 1 %; HCT 37.1 % (34.0-46.0); HGB 12.1 gm/dL (11.4-16.0); Lymphocytes % (A) 24 %; MCH 29.2 pg (25.0-35.0); MCHC 32.6 g/dL (31.0-37.0); MCV 89.5 fL (80.0-100.0); Mean Platelet Volume 8.3; Monocytes # (A) 0.4 k/uL (0-1.0); Monocytes % (A) 5 %; Neutrophils # (A) 5.5 k/uL (1.3-7.7); Neutrophils % (A) 67 %; Platelet Count 314 k/uL (150-450); RBC 4.14 m/uL (3.80-5.40); RDW 13.7 % (11.5-15.5); WBC 8.3 k/uL (3.8-10.6)
[2020-02-19 07:21] LABS: African American GFR (CKD) >90 (>60 ml/min/1.73 sqM); Anion Gap 5 mmol/L; Blood Urea Nitrogen 12 mg/dL (7-17); Calcium 8.9 mg/dL (8.4-10.2); Carbon Dioxide 27 mmol/L (22-30); Chloride 106 mmol/L (98-107); Glucose 116 mg/dL (74-99); Non-African American GFR(CKD) 85 (>60 ml/min/1.73 sqM); Potassium 3.7 mmol/L (3.5-5.1); Sodium 138 mmol/L (137-145)
[2020-02-19] MEDS: PANTOPRAZOLE 40 MG/10 ML VIAL IVP SCH (07:56)
[2020-02-19] MEDS: MAGNESIUM OXIDE 400 MG TAB PO SCH (07:56)
[2020-02-19] MEDS: GABAPENTIN 300 MG CAP PO SCH ×3 (07:56→23:24)
[2020-02-19] MEDS: CARVEDILOL 6.25 MG TAB PO SCH ×2 (07:56→16:58)
[2020-02-19] MEDS: INSULIN ASPART (NovoLOG) 100 UNIT/ML VIAL SQ SCH ×4 (07:57→20:51)
[2020-02-19] MEDS: ASPIRIN 81 MG PO SCH (07:57)
[2020-02-19] MEDS: MULTIVITAMINS, THERA 1 EACH TAB PO SCH (07:57)
[2020-02-19] MEDS: metFORMIN 500 MG TAB PO SCH (07:57)
[2020-02-19] MEDS ORDERED: CLOPIDOGREL 75 MG TAB PO SCH (09:00)
[2020-02-19] MEDS: ATORVASTATIN 40 MG TAB PO SCH (10:10)
[2020-02-19] MEDS: LOSARTAN 50 MG TAB PO SCH (10:11)
--- NOTE | 2020-02-19 10:44 | ECHOF ---
Referral Reason:cp, near syncope MEASUREMENTS -------- HEIGHT: 160.0 cm WEIGHT: 108.9 kg BP: 119/64 RVIDd: 3.2 cm (< 3.3) IVSd: 1.5 cm (0.6 - 1.1) LVIDd: 3.8 cm (3.9 - 5.3) LVPWd: 1.7 cm (0.6 - 1.1) IVSs: 1.9 cm LVIDs: 1.9 cm LVPWs: 1.9 cm LAESV Index (A-L): 23.31 ml/m Ao Diam: 3.8 cm (2.0 - 3.7) AV Cusp: 1.9 cm (1.5 - 2.6) MV EXCURSION: 17.354 mm (> 18.000) MV EF SLOPE: 120 mm/s (70 - 150) EPSS: 0.1 cm MV E Yo: 0.98 m/s MV DecT: 222 ms MV A Yo: 1.06 m/s MV E/A Ratio: 0.92 RAP: 5.00 mmHg RVSP: 30.88 mmHg FINDINGS -------- Sinus rhythm. This was a technically difficult study with suboptimal apical views. The left ventricular size is normal. There is moderate concentric left ventricular hypertrophy. O verall left ventricular systolic function is normal with, an EF between 55 - 60 %. The diastolic fi lling pattern is normal for the age of the patient {E/E'}. The right ventricle is normal in size. Normal LA size by volume 22+/-6 ml/m2. The right atrium is mildly enlarged. xx ml of Lumason was utilized for enhancement of images. Interatrial and interventricular septum intact. There is no evidence of aortic regurgitation. There is no evidence of aortic stenosis. Mild mitral regurgitation is present. Mild tricuspid regurgitation present. There is no evidence of pulmonary hypertension. The right v entricular systolic pressure, as measured by Doppler, is 30.88mmHg. There is no pulmonic regurgitation present. The aortic root size is normal. IVC Not well visulized. There is no pericardial effusion. CONCLUSIONS -------- 1. Sinus rhythm. 2. This was a technically difficult study with suboptimal apical views. 3. The left ventricular size is normal. 4. There is moderate concentric left ventricular hypertrophy. 5. Overall left ventricular systolic function is normal with, an EF between 55 - 60 %. 6. The diastolic filling pattern is normal for the age of the patient {E/E'} 7. The right ventricle is normal in size. 8. Normal LA size by volume 22+/-6 ml/m2. 9. The right atrium is mildly enlarged. 10. xx ml of Lumason was utilized for enhancement of images. 11. Interatrial and interventricular septum intact. 12. There is no evidence of aortic regurgitation. 13. There is no evidence of aortic stenosis. 14. Mild mitral regurgitation is present. 15. Mild tricuspid regurgitation present. 16. There is no evidence of pulmonary hypertension. 17. The right ventricular systolic pressure, as measured by Doppler, is 30.88mmHg. 18. There is no pulmonic regurgitation present. 19. The aortic root size is normal. 20. IVC Not well visulized. 21. There is no pericardial effusion. FIELD RECRUITER: Chen Gross RDCS
[2020-02-19 11:12] LABS: Glucose,Whole Blood 106 mg/dL (75-99)
--- NOTE | 2020-02-19 11:12 | P.CRDCN ---
History of Present Illness History of present illness: HISTORY OF PRESENTING ILLNESS This is a pleasant 69-year-old female past medical history significant for coronary artery disease status post PCI in the setting of a myocardial infa rction in May 2018, frequent palpitations with a loop recorder in place, hypertension, diabetes mellitus, grade 2 chronic diastolic heart failure, spinal stenosis, dyslipidemia and morbid obesity. She follows in the office with Dr. Moon in [place]. We have been asked to see in consultation for palpitations. She states last week Monday she started feeling symptoms of increased weakness and fatigue. Throughout the course of the day she noticed her heart rate was fluctuating between 60 and 110. She was also experiencing a tight sensation around her torso underneath her breasts on both side with intermittent radiation down the left arm with bilateral hand tingling. Throughout the course of the day she felt like she was going to pass out. She did end up calling EMS and on arrival they told her she was having sinus tachycardia and advised hospital evaluation. She declined at that time. Over the weekend she continued to have ongoing symptoms of chest pain, dizziness, palpitations and overall weakness. She saw her PCP in the office yesterday for further evaluation and was sent to the hospital for further evaluation. No EKG on admission. Telemetry tracings unremarkable. Laboratory data reviewed, WBC 8.3, hemoglobin 12.1, platelets 314, sodium 138, potassium 3.7, creatinine 0.72, troponin negative 1, NT proBNP 23. Current daily cardiac medications include Cardura 4 mg twice a day, Imdur 30 mg daily, Lasix 20 mg daily, aspirin 81 mg daily, amlodipine 5 mg daily, simvastatin 20 mg daily, losartan 100 mg daily, Klor-Con 20 MEQ's daily, Zetia 10 mg daily, Plavix 75 mg daily and carvedilol 6.25 mg twice a day. Most recent echocardiogram obtained September 2019 revealed preserved LV systolic function with ejection fraction 55-60% with grade 2 diastolic dysfunction. At that time she also underwent a dobutamine stress echocardiogram that was negative for stress-induced cardiac ischemia. REVIEW OF SYSTEMS At the time of my exam: CONSTITUTIONAL: Denies fever or chills. CARDIOVASCULAR: Denies chest pain, shortness of breath, orthopnea, PND or palpitations. RESPIRATORY: Denies cough. GASTROINTESTINAL: Denies abdominal pain, diarrhea, constipation, nausea or vomiting. MUSCULOSKELETAL: Denies myalgias. NEUROLOGIC: Denies numbness, tingling or weakness. ENDOCRINE: Denies fatigue, weight change, polydipsia or polyurina. GENITOURINARY: Denies burning, hematuria or urgency with micturation. HEMATOLOGIC: Denies history of anemia or bleeding. PHYSICAL EXAMINATION Blood pressure 126/67 heart rate 67 afebrile and maintaining oxygen saturation on room air. CONSTITUTIONAL: No apparent distress. Morbidly obese. HEENT: Head is normocephalic. Pupils are equal, round. Sclerae anicteric. Mucous membranes of the mouth are moist. No JVD. No carotid bruit. CHEST EXAMINATION: Lungs are clear to auscultation. No chest wall tenderness is noted on palpation or with deep breathing. HEART EXAMINATION: Regular rate and rhythm. S1, S2 heard. No murmurs, gallops or rub. ABDOMEN: Soft, nontender. Positive bowel sounds. EXTREMITIES: 2+ peripheral pulses, trace bilateral lower extremity edema and no calf tenderness. NEUROLOGIC EXAMINATION: Patient is awake, alert and oriented x3. ASSESSMENT Chest pain, atypical. Palpitations Near syncope History of coronary artery disease s/p PCI 05/2018 Hypertension Dyslipidemia Diabetes mellitus Spinal stenosis Loop recorder implantation secondary to frequent palpitations Chronic diastolic heart failure Morbid obesity, BMI 42 PLAN Obtain baseline EKG. Continue to obtain serial cardiac enzymes to rule out an acute event. Repeat 2D echocardiogram and doppler study to assess cardiac structure and function. Interrogate loop recorder. Plavix can be discontinued given her PCI was over 1 year ago. Discontinue amlodipine secondary to lower extremity swelling. Continue to monitor heart rate and blood pressure, coreg can be increased as needed. Thank you kindly for this consultation. Nurse Practitioner note has been reviewed, I agree with a documented findings and plan of care. Patient was seen and examined. Past Medical History Past Medical History: GERD/Reflux, Hyperlipidemia, Hypertension, Myocardial Infarction (UT), Osteoarthritis (OA), Rheumatoid Arthritis (RA), Sleep Apnea/CPAP/BIPAP Additional Past Medical History / Comment(s): HX Kidney Stones. POSS DIVERTICULITIS . BLOOD PRESSURE FLUCTUATES, LOOP MONITOR over a year ago. NARROWING OF SPINE W/ DISC PROB. USES C-PAP Last Myocardial Infarction Date:: 06/28/18 History of Any Multi-Drug Resistant Organisms: None Reported Past Surgical History: Cholecystectomy, Heart Catheterization With Stent, Hysterectomy Additional Past Surgical History / Comment(s): Lithotripsy, basket retrieval of kidney stones, COLONOSCOPY, loop recorder Past Anesthesia/Blood Transfusion Reactions: No Reported Reaction Additional Past Anesthesia/Blood Transfusion Reaction / Comment(s): BLOOD TRANSUFSION WHEN HAVING HER CHILDREN-NO REACTIONS TO BLOOD. Date of Last Stent Placement:: 06/28/18 Past Psychological History: No Psychological Hx Reported Additional Psychological History / Comment(s): Pt resides with her spouse. She is independent. Smoking Status: Former smoker Past Alcohol Use History: None Reported Additional Past Alcohol Use History / Comment(s): STARTED SMOKING AT AGE 18 AND QUIT AT AGE 25 (LITE SMOKER) Past Drug Use History: None Reported - Past Family History Mother Family Medical History: Cancer Additional Family Medical History / Comment(s): HAD LYMPHOMA THEN 15 YEARS LATER HAD SMALL CELL CA(TOMACH) Father Family Medical History: Myocardial Infarction (UT) Additional Family Medical History / Comment(s): PT WAS 9 YEARS OLD WHEN HER FATHER FROM MASSIVE UT. Brother(s) Family Medical History: Coronary Artery Disease (CAD), Myocardial Infarction (UT) Additional Family Medical History / Comment(s): Pt had a 42 yrs old brother of a massive UT and another brother who had CABG at the age of 39yrs. Sister(s) Family Medical History: Cancer Medications and Allergies Home Medications Medication Instructions Recorded Confirmed Type Multivitamins, Thera [Multivitamin 1 tab PO DAILY 10/12/16 02/18/20 History (formulary)] Aspirin 81 mg PO DAILY chew 11/28/16 02/18/20 Rx Clopidogrel [Plavix] 75 mg PO DAILY #30 tab 11/28/16 02/18/20 Rx Furosemide [Lasix] 20 mg PO DAILY 02/26/19 02/18/20 History Losartan Potassium [Cozaar] 100 mg PO DAILY 02/26/19 02/18/20 History Potassium Chloride [Klor-Con 20] 20 meq PO DAILY 02/26/19 02/18/20 History Levothyroxine Sodium [Synthroid] 100 mcg PO DAILY 10/05/19 02/18/20 History Pantoprazole [Protonix] 40 mg PO DAILY 10/05/19 02/18/20 History Carvedilol [Coreg] 6.25 mg PO BID 10/06/19 02/18/20 History Doxazosin [Cardura] 4 mg PO BID 02/18/20 02/18/20 History Ezetimibe [Zetia] 10 mg PO DAILY 02/18/20 02/18/20 History Gabapentin [Neurontin] 300 mg PO Q8H 02/18/20 02/18/20 History HYDROcodone/APAP 10-325MG [[place] 1 tab PO Q6H PRN 02/18/20 02/18/20 History 10-325] Isosorbide Mononitrate ER [Imdur] 30 mg PO DAILY 02/18/20 02/18/20 History Krill Oil 500 mg PO DAILY 02/18/20 02/18/20 History Magnesium 30mg 1 tab PO DAILY 02/18/20 02/18/20 History Meloxicam 15 mg PO DAILY 02/18/20 02/18/20 History Nitroglycerin Sl Tabs [Nitrostat] 0.4 mg SUBLINGUAL Q5M PRN 02/18/20 02/18/20 History Rosuvastatin [Crestor] 20 mg PO DAILY 02/18/20 02/18/20 History amLODIPine [Norvasc] 5 mg PO DAILY 02/18/20 02/18/20 History metFORMIN HCL 500 mg PO DAILY 02/18/20 02/18/20 History Allergies Allergy/AdvReac Type Severity Reaction Status Date / Time No Known Allergies Allergy Verified 02/18/20 14:30 Physical Exam Vitals: Vital Signs Temp Pulse Resp BP BP BP BP 02/19/20 06:00 77 18 137/74 147/70 119/64 02/19/20 05:00 97.4 F L 67 18 126/67 02/18/20 21:35 97.5 F L 73 22 123/71 02/18/20 18:29 97.8 F 73 17 152/75 150/69 124/64 02/18/20 16:00 73 17 02/18/20 11:28 97.4 F L 72 17 127/77 Pulse Ox 02/19/20 06:00 97 02/19/20 05:00 95 02/18/20 21:35 96 02/18/20 18:29 96 02/18/20 16:00 02/18/20 11:28 96 Intake and Output 04/21/20 04/22/20 04/22/20 22:59 06:59 14:59 Intake Total 200 400 Balance 200 400 Intake: Intake, IV Titration 200 400 Amount Sodium Chloride 0.9% 1, 200 400 000 ml @ 50 mls/hr IV . Q20H [facility] Rx#:[id number] Other: Voiding Method Toilet Toilet # Voids 1 # Bowel Movements 1 Results 02/19/20 05:46 02/19/20 05:46 Cardiac Enzymes 02/18/20 Range/Units 16:08 AST 28 (14-36) U/L CBC 02/18/20 02/19/20 Range/Units 16:08 05:46 WBC 9.5 8.3 (3.8-10.6) k/uL RBC 4.48 4.14 (3.80-5.40) m/uL Hgb 13.2 12.1 (11.4-16.0) gm/dL Hct 40.2 37.1 (34.0-46.0) % Plt Count 378 314 (150-450) k/uL Comprehensive Metabolic Panel 02/18/20 02/19/20 Range/Units 16:08 05:46 Sodium 138 138 (137-145) mmol/L Potassium 3.8 3.7 (3.5-5.1) mmol/L Chloride 102 106 (98-107) mmol/L Carbon Dioxide 28 27 (22-30) mmol/L BUN 10 12 (7-17) mg/dL Creatinine 0.66 0.72 (0.52-1.04) mg/dL Glucose 102 H 116 H (74-99) mg/dL Calcium 9.3 8.9 (8.4-10.2) mg/dL AST 28 (14-36) U/L ALT 27 (4-34) U/L Alkaline Phosphatase 104 (38-126) U/L Total Protein 6.9 (6.3-8.2) g/dL Albumin 4.2 (3.5-5.0) g/dL Current Medications Generic Name Dose Route Start Last Admin Trade Name Freq PRN Reason Stop Dose Admin Aspirin 81 mg 02/19/20 09:00 02/19/20 07:57 Aspirin PO 81 mg DAILY [facility] Administration Carvedilol 6.25 mg 02/18/20 17:30 02/19/20 07:56 Coreg PO 6.25 mg AC-BID [facility] Administration Clopidogrel Bisulfate 75 mg 02/19/20 09:00 02/19/20 07:57 Plavix PO 75 mg DAILY [facility] Administration Gabapentin 300 mg 02/18/20 16:00 02/19/20 07:56 Neurontin PO 300 mg Q8H [facility] Administration Sodium Chloride 1,000 mls @ 50 mls/hr 02/18/20 15:45 02/18/20 18:18 Saline 0.9% IV 50 mls/hr .Q20H [facility] Administration Insulin Aspart 0 unit 02/18/20 17:30 02/19/20 07:57 Novolog SQ 1 unit ACHS [facility] Administration Protocol Levothyroxine Sodium 100 mcg 02/19/20 06:30 02/19/20 06:01 Synthroid PO 100 mcg DAILY@0630 [facility] Administration Magnesium Oxide 400 mg 02/19/20 09:00 02/19/20 07:56 Mag-Ox PO 400 mg DAILY [facility] Administration Metformin HCl 500 mg 02/19/20 07:30 02/19/20 07:57 Glucophage PO 500 mg AC-BRKFST [facility] Administration Multivitamins 1 each 02/19/20 09:00 02/19/20 07:57 Theragran PO 1 each DAILY [facility] Administration Nitroglycerin 0.4 mg 02/18/20 15:33 Nitrostat SUBLINGUAL Q5M PRN Chest Pain Non-Formulary Medication 100 mg 02/19/20 09:00 Losartan Potassium [Cozaar] PO DAILY [facility] Non-Formulary Medication 20 mg 02/19/20 09:00 Rosuvastatin PO DAILY [facility] Pantoprazole Sodium 40 mg 02/18/20 15:45 02/19/20 07:56 Protonix IVP 40 mg DAILY [facility] Administration Intake and Output 02/18/20 02/19/20 02/19/20 22:59 06:59 14:59 Intake Total 200 400 Balance 200 400 Intake: Intake, IV Titration 200 400 Amount Sodium Chloride 0.9% 1, 200 400 000 ml @ 50 mls/hr IV . Q20H [facility] Rx#:[id number] Other: Voiding Method Toilet Toilet # Voids 1 # Bowel Movements 1 02/19/20 05:46 02/19/20 05:46
--- NOTE | 2020-02-19 15:40 | HP ---
HISTORY AND PHYSICAL This patient is a 69-year-old white female with near-syncope with pulse rate going real high and real low. Blood pressure went real high and real low. She was admitted with sick sinus syndrome versus near-syncope, history of multiple palpitations with a loop recorder, hypertension, diabetes mellitus, diastolic heart failure, spinal stenosis, cardiac disease with stents. She sees a hvac instructor in [place], [place], and she had worsening fatigue, heart rate fluctuating between 60 and 110 and chest pain under her breast radiating down the left arm with arm tingling. She had near-syncope, at which time she was admitted to the hospital for cardiac evaluation. Fourteen-point review of systems positive as mentioned above. Heart rate was 60s, blood pressure 160s over 67, oxygenation on room air. HEENT: Normocephalic, atraumatic. CARDIOVASCULAR: S1, S2. LUNGS: Decreased breath sounds. ENDOCRINE: BMI is over 40. PSYCH: Appears anxious and nervous. ASSESSMENT: 1. Atypical chest pain, palpitations, possible sick sinus syndrome, near-syncope. 2. Diabetes mellitus. 3. Spinal stenosis. 4. Hypertension. 5. Dyslipidemia. 6. Diastolic heart failure. 7. Obesity. 8. Near-syncope. Echo, troponins, orthostatic changes. Cardiology to evaluate. Possibly some dehydration, prerenal renal failure. Fluids will be given. Negative BNP with Cardiology to clear her prior to discharge. Echo was ordered. MMODL / IJN: [id number] /
[2020-02-19 16:51] LABS: Glucose,Whole Blood 133 mg/dL (75-99)
[2020-02-19] MEDS: SODIUM CHLORIDE 0.9% 1,000 ML IV SCH (16:59)
[2020-02-19 20:24] LABS: Glucose,Whole Blood 134 mg/dL (75-99)
[2020-02-20] MEDS: LEVOTHYROXINE 100 MCG TAB PO SCH (06:11)
[2020-02-20 07:01] LABS: Glucose,Whole Blood 143 mg/dL (75-99)
[2020-02-20] MEDS: PANTOPRAZOLE 40 MG/10 ML VIAL IVP SCH (07:28)
[2020-02-20] MEDS: INSULIN ASPART (NovoLOG) 100 UNIT/ML VIAL SQ SCH ×2 (07:28→13:02)
[2020-02-20] MEDS: GABAPENTIN 300 MG CAP PO SCH (07:29)
[2020-02-20] MEDS: CARVEDILOL 6.25 MG TAB PO SCH (07:29)
[2020-02-20] MEDS: ASPIRIN 81 MG PO SCH (07:29)
[2020-02-20] MEDS: MULTIVITAMINS, THERA 1 EACH TAB PO SCH (07:29)
[2020-02-20] MEDS: metFORMIN 500 MG TAB PO SCH (07:29)
[2020-02-20] MEDS: LOSARTAN 50 MG TAB PO SCH (07:29)
[2020-02-20] MEDS: ATORVASTATIN 40 MG TAB PO SCH (07:29)
[2020-02-20] MEDS: MAGNESIUM OXIDE 400 MG TAB PO SCH (07:29)
[2020-02-20 11:14] LABS: Glucose,Whole Blood 101 mg/dL (75-99)
[2020-02-20 11:47] VITALS: BP 117/61; PULSE 72; RESP 17; TEMP 97.9
--- NOTE | 2020-02-20 12:04 | P.PN ---
Subjective HISTORY OF PRESENTING ILLNESS This is a pleasant 69-year-old female past medical history significant for coronary artery disease status post PCI in the setting of a myocardial infarction in May 2018, frequent palpitations with a loop recorder in place, hypertension, diabetes mellitus, grade 2 chronic diastolic heart failure, spinal stenosis, dyslipidemia and morbid obesity. She follows in the office with Dr. Moon in [place]. She is seen and examined sitting up in the chair in no acute distress. She has had no further symptoms of palpitations, dizziness or chest pain. Overall she states she is feeling much better. EKG obtained revealed sinus mechanism with no acute ST or T wave abnormalities noted with first-degree AV block. Blood pressure 117/61 heart rate 72 afebrile maintaining oxygen saturation on room air. Cardiac enzymes negative 2. Telemetry tracings unremarkable. Currently maintained on aspirin 81 mg daily, atorvastatin 40 mg daily, carvedilol 6.25 mg twice a day and losartan 100 mg daily. PHYSICAL EXAMINATION CONSTITUTIONAL: No apparent distress. Morbidly obese. HEENT: Head is normocephalic. Pupils are equal, round. Sclerae anicteric. Mucous membranes of the mouth are moist. No JVD. No carotid bruit. CHEST EXAMINATION: Lungs are clear to auscultation. No chest wall tenderness is noted on palpation or with deep breathing. HEART EXAMINATION: Regular rate and rhythm. S1, S2 heard. No murmurs, gallops or rub. EXTREMITIES: 2+ peripheral pulses, trace bilateral lower extremity edema and no calf tenderness. ASSESSMENT Chest pain, atypical. Palpitations Near syncope History of coronary artery disease s/p PCI 05/2018 Hypertension Dyslipidemia Diabetes mellitus Spinal stenosis Loop recorder implantation secondary to frequent palpitations Chronic diastolic heart failure Morbid obesity, BMI 42 PLAN An acute coronary event has been ruled out. Recent stress testing was unremarkable. No evidence of arrhythmia. She is feeling better on decreased medications and blood pressure is stable. Follow up with Dr. Moon upon discharge. Nurse Practitioner note has been reviewed, I agree with a documented findings and plan of care. Patient was seen and examined. Objective - Vital Signs Vital signs: Vital Signs Temp 97.5 F L 02/20/20 05:00 Pulse 66 02/20/20 06:00 Resp 18 02/20/20 05:00 BP 119/60 02/20/20 06:00 Pulse Ox 94 L 02/20/20 06:00 Intake & Output 02/19/20 02/20/20 02/20/20 18:59 06:59 18:59 Intake Total 400 990 Balance 400 990 Intake: Intake, IV Titration 400 400 Amount Sodium Chloride 0.9% 1, 400 400 000 ml @ 50 mls/hr IV . Q20H [facility] Rx#:[id number] Oral 590 Other: Voiding Method Toilet Toilet # Voids 1 # Bowel Movements 1 - Labs CBC & Chem 7: 02/19/20 05:46 02/19/20 05:46 Labs: Abnormal Lab Results - Last 24 Hours (Table) 02/19/20 02/19/20 02/19/20 Range/Units 11:11 16:49 20:22 POC Glucose (mg/dL) 106 H 133 H 134 H (75-99) mg/dL 02/20/20 Range/Units 07:00 POC Glucose (mg/dL) 143 H (75-99) mg/dL
--- NOTE | 2020-02-20 16:26 | P.DS ---
Providers Date of admission: 02/18/20 10:41 Expected date of discharge: 02/20/20 Attending physician: Nakul Aburto Consults: 02/18/20 15:29 Consult Physician Routine Consulting Provider: Terrell Zepeda Consult Reason/Comments: sick sinus syndrome Do you want consulting provider notified?: Yes Primary care physician: [facility] Course: Final Diagnoses: Atypical chest pain, palpitations, possible sick sinus syndrome, near syncope. Acute coronary event ruled out as per cardiology. Dehydration Acute renal failure, prerenal secondary to the above Orthostatic hypotension ruled out CAD Hypertension dyslipidemia Chronic diastolic CHF Obesity, morbid, BMI 42.6 Spinal stenosis Hospital course: This a 69-year-old female admitted with near syncope, atypical chest pain and multiple other medical issues. Negative for orthostatic hypotension. Evaluated by cardiology.Recent stress test reported as unremarkable. No evidence of arrhythmia per telemetry. Adjustments in medication regimen as per cardiology. Patient to follow-up with her own muffle operator in [place] Dr. Moon. Significant clinical improvement. Patient has been cleared for discharge by cardiology. Patient is being discharged home in a stable condition with guarded prognosis. Please refer to H&P and consults for further specific infomation. The impression and plan of care has been dictated as directed. : I performed a history and examination of this patient, discussed the same with the dictator. I agree with the dictator's note ,documented as a scribe. Any additional findings or plans will be noted. Patient Condition at Discharge: Stable Plan - Discharge Summary New Discharge Prescriptions: Continue Multivitamins, Thera [Multivitamin (formulary)] 1 tab PO DAILY Aspirin 81 mg PO DAILY chew Losartan Potassium [Cozaar] 100 mg PO DAILY Levothyroxine Sodium [Synthroid] 100 mcg PO DAILY Pantoprazole [Protonix] 40 mg PO DAILY Carvedilol [Coreg] 6.25 mg PO BID Nitroglycerin Sl Tabs [Nitrostat] 0.4 mg SUBLINGUAL Q5M PRN PRN Reason: Chest Pain Gabapentin [Neurontin] 300 mg PO Q8H Meloxicam 15 mg PO DAILY Doxazosin [Cardura] 4 mg PO BID Magnesium 30mg 1 tab PO DAILY Krill Oil 500 mg PO DAILY metFORMIN HCL 500 mg PO DAILY Rosuvastatin [Crestor] 20 mg PO DAILY Ezetimibe [Zetia] 10 mg PO DAILY HYDROcodone/APAP 10-325MG [[place] 10-325] 1 tab PO Q6H PRN PRN Reason: Pain Discontinued Clopidogrel [Plavix] 75 mg PO DAILY #30 tab Potassium Chloride [Klor-Con 20] 20 meq PO DAILY Isosorbide Mononitrate ER [Imdur] 30 mg PO DAILY amLODIPine [Norvasc] 5 mg PO DAILY Discharge Medication List Multivitamins, Thera [Multivitamin (formulary)] 1 tab PO DAILY 10/12/16 [History] Aspirin 81 mg PO DAILY chew 11/28/16 [Rx] Losartan Potassium [Cozaar] 100 mg PO DAILY 02/26/19 [History] Levothyroxine Sodium [Synthroid] 100 mcg PO DAILY 10/05/19 [History] Pantoprazole [Protonix] 40 mg PO DAILY 10/05/19 [History] Carvedilol [Coreg] 6.25 mg PO BID 10/06/19 [History] Doxazosin [Cardura] 4 mg PO BID 02/18/20 [History] Ezetimibe [Zetia] 10 mg PO DAILY 02/18/20 [History] Gabapentin [Neurontin] 300 mg PO Q8H 02/18/20 [History] HYDROcodone/APAP 10-325MG [[place] 10-325] 1 tab PO Q6H PRN 02/18/20 [History] Krill Oil 500 mg PO DAILY 02/18/20 [History] Magnesium 30mg 1 tab PO DAILY 02/18/20 [History] Meloxicam 15 mg PO DAILY 02/18/20 [History] Nitroglycerin Sl Tabs [Nitrostat] 0.4 mg SUBLINGUAL Q5M PRN 02/18/20 [History] Rosuvastatin [Crestor] 20 mg PO DAILY 02/18/20 [History] metFORMIN HCL 500 mg PO DAILY 02/18/20 [History] Follow up Appointment(s)/Referral(s): Nakul Aburto MD [Primary Care Provider] - 02/27/20 9:30 am Alfredo Moon MD [REFERRING] - 03/03/20 9:00 am (visit will be by video chat or phone,office will call patient to set this up.) Patient Instructions/Handouts: Syncope (DC) Discharge Disposition: HOME SELF-CARE
== END 2020-02-20 13:55 | disposition home or self-care (01) | DRG 309 ==
LOC: 5NMEDONC 10:41
PROVIDERS: ADMIT Family Medicine; ATTEND Family Medicine
DX: I49.5 Sick sinus syndrome (principal); I50.32 Chronic diastolic (congestive) heart failure; N17.9 Acute kidney failure, unspecified; Z68.41 Body mass index [BMI] 40.0-44.9, adult; E66.01 Morbid (severe) obesity due to excess calories; E11.9 Type 2 diabetes mellitus without complications; E78.5 Hyperlipidemia, unspecified; E86.0 Dehydration; I11.0 Hypertensive heart disease with heart failure; I25.10 Atherosclerotic heart disease of native coronary artery without angina pectoris; I25.2 Old myocardial infarction; M06.9 Rheumatoid arthritis, unspecified; M48.00 Spinal stenosis, site unspecified; Z79.02 Long term (current) use of antithrombotics/antiplatelets; Z79.1 Long term (current) use of non-steroidal anti-inflammatories (NSAID); Z79.82 Long term (current) use of aspirin; Z79.84 Long term (current) use of oral hypoglycemic drugs; Z79.890 Hormone replacement therapy; Z79.899 Other long term (current) drug therapy; Z80.7 Family history of other malignant neoplasms of lymphoid, hematopoietic and related tissues; Z82.49 Family history of ischemic heart disease and other diseases of the circulatory system; Z80.0 Family history of malignant neoplasm of digestive organs; Z87.442 Personal history of urinary calculi; Z87.891 Personal history of nicotine dependence; Z90.710 Acquired absence of both cervix and uterus; Z98.61 Coronary angioplasty status; G47.30 Sleep apnea, unspecified; Z99.89 Dependence on other enabling machines and devices
CPT/HCPCS: 80048; 80053; 83880; 84484; 85025; 93005; 93306

== ENCOUNTER → 2020-10-06 | Outpatient (CLI) | payer MEDICARE ==
--- NOTE | 2020-10-06 12:43 | US ---
EXAMINATION TYPE: US venous doppler duplex LE RT DATE OF EXAM: 10/06/2020 12:15 PM COMPARISON: NONE CLINICAL HISTORY: M79.661 pain in right lower limb, R22.41 Swelling of right l. pt states pain/burnin g in back of right leg SIDE PERFORMED: Right TECHNIQUE: The lower extremity deep venous system is examined utilizing real time linear array sonog jack with graded compression, doppler sonography and color-flow sonography. VESSELS IMAGED: Common Femoral Vein Deep Femoral Vein Greater Saphenous Vein * Femoral Vein Popliteal Vein Small Saphenous Vein * Proximal Calf Veins (* superficial vessels) Right Leg: Negative for DVT, attempted to call Physician at time of exam with results, no answer IMPRESSION: 1. Right lower extremity ultrasound negative for deep venous thrombosis
== END | disposition home or self-care (01) ==
LOC: RADUSWWP 11:30
PROVIDERS: ATTEND Family Medicine
DX: M79.661 Pain in right lower leg (principal); R22.41 Localized swelling, mass and lump, right lower limb

== ENCOUNTER 2020-11-26 13:41 | Observation (INO) | payer MEDICARE ==
[2020-11-26] MEDS ORDERED: NITROGLYCERIN SL TABS 0.4 MG TAB SUBLINGUAL STA ×3 (14:04→14:06)
--- NOTE | 2020-11-26 14:11 | ED ---
General Adult HPI - General Chief complaint: Chest Pain Stated complaint: Chest Pain/SOB Time Seen by Provider: 11/26/20 13:55 Source: patient, family, RN notes reviewed, old records reviewed Mode of arrival: ambulatory Limitations: no limitations - History of Present Illness Initial comments: This is a 70-year-old female presents emergency department with past medical history significant for previous heart attack with stenting and a history of COPD. Patient states last evening she started having chest pain to the nitro aspirin eventually subsided. Patient states she woke up this morning with shortness of breath and had intermittent episodes of chest pain. Patient states currently she still feeling some anterior chest pain. Patient denies any difficulty breathing at this time. Patient denies any fever chills or cough patient denies headache patient denies numbness weakness. - Related Data Home Medications Medication Instructions Recorded Confirmed Multivitamins, Thera [Multivitamin 1 tab PO DAILY 10/12/16 02/18/20 (formulary)] Losartan Potassium [Cozaar] 100 mg PO DAILY 02/26/19 02/18/20 Levothyroxine Sodium [Synthroid] 100 mcg PO DAILY 10/05/19 02/18/20 Pantoprazole [Protonix] 40 mg PO DAILY 10/05/19 02/18/20 carvediloL [Coreg] 6.25 mg PO BID 10/06/19 02/18/20 Doxazosin [Cardura] 4 mg PO BID 02/18/20 02/18/20 Ezetimibe [Zetia] 10 mg PO DAILY 02/18/20 02/18/20 Gabapentin [Neurontin] 300 mg PO Q8H 02/18/20 02/18/20 HYDROcodone/APAP 10-325MG [[place] 1 tab PO Q6H PRN 02/18/20 02/18/20 10-325] Krill Oil 500 mg PO DAILY 02/18/20 02/18/20 Magnesium 30mg 1 tab PO DAILY 02/18/20 02/18/20 Meloxicam 15 mg PO DAILY 02/18/20 02/18/20 Nitroglycerin Sl Tabs [Nitrostat] 0.4 mg SUBLINGUAL Q5M PRN 02/18/20 02/18/20 Rosuvastatin [Crestor] 20 mg PO DAILY 02/18/20 02/18/20 metFORMIN HCL 500 mg PO DAILY 02/18/20 02/18/20 Previous Rx's Medication Instructions Recorded Aspirin 81 mg PO DAILY chew 11/28/16 Allergies Allergy/AdvReac Type Severity Reaction Status Date / Time No Known Allergies Allergy Verified 02/18/20 14:30 Review of Systems ROS Statement: Those systems with pertinent positive or pertinent negative responses have been documented in the HPI. ROS Other: All systems not noted in ROS Statement are negative. Past Medical History Past Medical History: GERD/Reflux, Hyperlipidemia, Hypertension, Myocardial Infarction (NC), Osteoarthritis (OA), Rheumatoid Arthritis (RA), Sleep Apnea/CPAP/BIPAP Additional Past Medical History / Comment(s): HX Kidney Stones. POSS DIVERTICULITIS . BLOOD PRESSURE FLUCTUATES, LOOP MONITOR over a year ago. NARROWING OF SPINE W/ DISC PROB. USES C-PAP Last Myocardial Infarction Date:: 06/28/18 History of Any Multi-Drug Resistant Organisms: None Reported Past Surgical History: Cholecystectomy, Heart Catheterization With Stent, Hysterectomy Additional Past Surgical History / Comment(s): Lithotripsy, basket retrieval of kidney stones, COLONOSCOPY, loop recorder Past Anesthesia/Blood Transfusion Reactions: No Reported Reaction Additional Past Anesthesia/Blood Transfusion Reaction / Comment(s): BLOOD TRANSUFSION WHEN HAVING HER CHILDREN-NO REACTIONS TO BLOOD. Date of Last Stent Placement:: 06/28/18 Past Psychological History: No Psychological Hx Reported Smoking Status: Former smoker Past Alcohol Use History: None Reported Past Drug Use History: None Reported - Past Family History Mother Family Medical History: Cancer Additional Family Medical History / Comment(s): HAD LYMPHOMA THEN 15 YEARS LATER HAD SMALL CELL CA(TOMACH) Father Family Medical History: Myocardial Infarction (NC) Additional Family Medical History / Comment(s): PT WAS 9 YEARS OLD WHEN HER FATHER FROM MASSIVE NC. Brother(s) Family Medical History: Coronary Artery Disease (CAD), Myocardial Infarction (NC) Additional Family Medical History / Comment(s): Pt had a 42 yrs old brother of a massive NC and another brother who had CABG at the age of 39yrs. Sister(s) Family Medical History: Cancer General Exam - General Exam Comments Initial Comments: GENERAL: Patient is well-developed and well-nourished. Patient is nontoxic and well- hydrated and is in mild distress. ENT: Neck is soft and supple. No significant lymphadenopathy is noted. Oropharynx is clear. Moist mucous membranes. Neck has full range of motion without eliciting any pain. EYES: The sclera were anicteric and conjunctiva were pink and moist. Extraocular movements were intact and pupils were equal round and reactive to light. Eyelids were unremarkable. PULMONARY: Unlabored respirations. Good breath sounds bilaterally. No audible rales rhonchi or wheezing was noted. CARDIOVASCULAR: There is a regular rate and rhythm without any murmurs gallops or rubs. ABDOMEN: Soft and nontender with normal bowel sounds. SKIN: Skin is clear with no lesions or rashes and otherwise unremarkable. NEUROLOGIC: Patient is alert and oriented x3. Cranial nerves II through XII are grossly intact. Motor and sensory are also intact. Normal speech, volume and content. Symmetrical smile. MUSCULOSKELETAL: Normal extremities with adequate strength and full range of motion. No lower extremity swelling or edema. No calf tenderness. LYMPHATICS: No significant lymphadenopathy is noted PSYCHIATRIC: Normal psychiatric evaluation. Limitations: no limitations Course Vital Signs 11/26/20 11/26/20 13:54 14:20 Temperature 97.6 F Pulse Rate 86 85 Respiratory 16 16 Rate Blood Pressure 174/96 126/81 O2 Sat by Pulse 96 96 Oximetry Medical Decision Making - Medical Decision Making EKG shows normal sinus rhythm at 85 bpm AK interval is 154 QRS is 70 QT interval 380 QTC is 452. Patient's EKG shows no ST segment elevation or depression. Chest x-ray shows no acute abnormalities I started the patient heparin for unstable angina. Patient had a nitroglycerin sublingual and it reduced her pain considerably. I spoke with Dr. Aburto he agreed to admit the patient admitted the patient remaining orders and I consulted cardiology - Lab Data Result diagrams: 11/26/20 14:09 11/26/20 14:09 Lab Results 11/26/20 11/26/20 11/26/20 Range/Units 14:09 14:09 14:09 WBC 11.3 H (3.8-10.6) k/uL RBC 5.02 (3.80-5.40) m/uL Hgb 15.1 (11.4-16.0) gm/dL Hct 44.0 (34.0-46.0) % MCV 87.5 (80.0-100.0) fL MCH 30.0 (25.0-35.0) pg MCHC 34.2 (31.0-37.0) g/dL RDW 14.6 (11.5-15.5) % Plt Count 193 (150-450) k/uL MPV 8.1 Neutrophils % 68 % Lymphocytes % 25 % Monocytes % 5 % Eosinophils % 0 % Basophils % 1 % Neutrophils # 7.7 (1.3-7.7) k/uL Lymphocytes # 2.8 (1.0-4.8) k/uL Monocytes # 0.6 (0-1.0) k/uL Eosinophils # 0.0 (0-0.7) k/uL Basophils # 0.1 (0-0.2) k/uL PT 10.6 (9.0-12.0) sec INR 1.0 (<1.2) APTT 20.0 L (22.0-30.0) sec Sodium 138 (137-145) mmol/L Potassium 3.6 (3.5-5.1) mmol/L Chloride 103 (98-107) mmol/L Carbon Dioxide 28 (22-30) mmol/L Anion Gap 7 mmol/L BUN 14 (7-17) mg/dL Creatinine 0.67 (0.52-1.04) mg/dL Est GFR (CKD-EPI)AfAm >90 (>60 ml/min/1.73 sqM) Est GFR (CKD-EPI)NonAf 88 (>60 ml/min/1.73 sqM) Glucose 131 H (74-99) mg/dL Calcium 9.1 (8.4-10.2) mg/dL Magnesium 2.1 (1.6-2.3) mg/dL Total Bilirubin 1.0 (0.2-1.3) mg/dL AST 26 (14-36) U/L ALT 69 H (4-34) U/L Alkaline Phosphatase 84 (38-126) U/L Troponin I (0.000-0.034) ng/mL Total Protein 6.3 (6.3-8.2) g/dL Albumin 3.9 (3.5-5.0) g/dL 11/26/20 Range/Units 14:09 WBC (3.8-10.6) k/uL RBC (3.80-5.40) m/uL Hgb (11.4-16.0) gm/dL Hct (34.0-46.0) % MCV (80.0-100.0) fL MCH (25.0-35.0) pg MCHC (31.0-37.0) g/dL RDW (11.5-15.5) % Plt Count (150-450) k/uL MPV Neutrophils % % Lymphocytes % % Monocytes % % Eosinophils % % Basophils % % Neutrophils # (1.3-7.7) k/uL Lymphocytes # (1.0-4.8) k/uL Monocytes # (0-1.0) k/uL Eosinophils # (0-0.7) k/uL Basophils # (0-0.2) k/uL PT (9.0-12.0) sec INR (<1.2) APTT (22.0-30.0) sec Sodium (137-145) mmol/L Potassium (3.5-5.1) mmol/L Chloride (98-107) mmol/L Carbon Dioxide (22-30) mmol/L Anion Gap mmol/L BUN (7-17) mg/dL Creatinine (0.52-1.04) mg/dL Est GFR (CKD-EPI)AfAm (>60 ml/min/1.73 sqM) Est GFR (CKD-EPI)NonAf (>60 ml/min/1.73 sqM) Glucose (74-99) mg/dL Calcium (8.4-10.2) mg/dL Magnesium (1.6-2.3) mg/dL Total Bilirubin (0.2-1.3) mg/dL AST (14-36) U/L ALT (4-34) U/L Alkaline Phosphatase (38-126) U/L Troponin I <0.012 (0.000-0.034) ng/mL Total Protein (6.3-8.2) g/dL Albumin (3.5-5.0) g/dL Critical Care Time Critical Care Time: Yes Total Critical Care Time: 35 Disposition Clinical Impression: Unstable angina pectoris Disposition: ADMITTED IP TO THIS [facility] Referrals: Nakul Aburto MD [Primary Care Provider] - 1-2 days
[2020-11-26 14:20] LABS: Basophils # (A) 0.1 k/uL (0-0.2); Basophils % (A) 1 %; Eosinophils % (A) 0 %; HGB 15.1 gm/dL (11.4-16.0); Lymphocytes # (A) 2.8 k/uL (1.0-4.8); Lymphocytes % (A) 25 %; MCHC 34.2 g/dL (31.0-37.0); MCV 87.5 fL (80.0-100.0); Mean Platelet Volume 8.1; Monocytes # (A) 0.6 k/uL (0-1.0); Monocytes % (A) 5 %; Neutrophils # (A) 7.7 k/uL (1.3-7.7); Neutrophils % (A) 68 %; Platelet Count 193 k/uL (150-450); RBC 5.02 m/uL (3.80-5.40); RDW 14.6 % (11.5-15.5); WBC 11.3 k/uL (3.8-10.6)
[2020-11-26 14:31] LABS: ALT 69 U/L (4-34); AST 26 U/L (14-36); African American GFR (CKD) >90 (>60 ml/min/1.73 sqM); Albumin 3.9 g/dL (3.5-5.0); Alkaline Phosphatase 84 U/L (38-126); Anion Gap 7 mmol/L; Blood Urea Nitrogen 14 mg/dL (7-17); Calcium 9.1 mg/dL (8.4-10.2); Carbon Dioxide 28 mmol/L (22-30); Chloride 103 mmol/L (98-107); Glucose 131 mg/dL (74-99); Magnesium 2.1 mg/dL (1.6-2.3); Non-African American GFR(CKD) 88 (>60 ml/min/1.73 sqM); Potassium 3.6 mmol/L (3.5-5.1); Prothrombin Time 10.6 sec (9.0-12.0); Sodium 138 mmol/L (137-145); Total Protein 6.3 g/dL (6.3-8.2)
--- NOTE | 2020-11-26 14:52 | XR ---
EXAMINATION TYPE: XR chest 2V DATE OF EXAM: 11/26/2020 COMPARISON: 10/05/2019 HISTORY: 70-year-old female chest pain TECHNIQUE: AP and lateral views FINDINGS: Large patient body habitus casting. The densities overlying the lungs. Some strandy left basilar atel ectasis. The cardiomediastinal silhouette, aorta, and pulmonary vasculature are within normal limits. No other consolidation or pleural effusion. Loop recorder device projects over the left heart margin . IMPRESSION: No definite acute process.
[2020-11-26] MEDS ORDERED: HEPARIN SODIUM,PORCINE 5,000 UNIT/ML 1 ML VIAL IV ONE (14:57)
[2020-11-26] MEDS ORDERED: HEPARIN SOD,PORK IN 0.45% NACL 25,000 UNIT in 0.45% NACL 1 250ML.BAG IV SCH (15:00)
[2020-11-26] MEDS ORDERED: NITROGLYCERIN SL TABS 0.4 MG TAB SUBLINGUAL PRN ×2 (15:05→16:51)
[2020-11-26 16:44] LABS: Glucose,Whole Blood 149 mg/dL (75-99)
[2020-11-26] MEDS: GABAPENTIN 300 MG CAP PO SCH (18:05)
[2020-11-26] MEDS: NITROGLYCERIN OINT 1 INCH/GM PACKET TOPICAL SCH (18:05)
[2020-11-26] MEDS: carvediloL 6.25 MG TAB PO SCH (18:05)
[2020-11-26] MEDS ORDERED: MAGNESIUM HYDROXIDE 2,400 MG/10 ML CUP PO PRN (18:17)
[2020-11-26 20:25] LABS: Glucose,Whole Blood 124 mg/dL (75-99)
[2020-11-26] MEDS: DOXAZOSIN 4 MG TAB PO SCH (20:34)
[2020-11-26] MEDS: DOCUSATE 100 MG CAP PO SCH (20:34)
[2020-11-26] MEDS: INSULIN ASPART (NovoLOG) 100 UNIT/ML VIAL SQ SCH (20:34)
[2020-11-26] MEDS: NON FORMULARY DRUG (Lubiprostone [Amitiza] 24 MCG Capsule) PO SCH (20:35)
--- NOTE | 2020-11-26 22:07 | XR ---
PROCEDURE: XR thoracic spine complete - 3V DATE AND TIME: 11/26/2020 7:05 PM CLINICAL INDICATION: PHH; thoracic pain TECHNIQUE: Department protocol COMPARISON: None FINDINGS: There is no fracture or malalignment. There are multilevel advanced spondylosis changes. The lateral views show evidence of multifocal hypersclerosis, which will be further specified with up coming CT today. IMPRESSION: No definite acute radiographic process.
--- NOTE | 2020-11-26 22:12 | CT ---
EXAMINATION TYPE: CT chest wo con DATE OF EXAM: 11/26/2020 COMPARISON: Radiographs 11/26/2020 HISTORY: chest pain CT DLP: 493.90 mGycm. Automated Exposure Control for Dose Reduction was Utilized. TECHNIQUE: CT scan of the thorax is performed without IV contrast. FINDINGS: AIRWAYS: Unremarkable LUNGS: The lungs are clear. PLEURAL SPACES: There is no pleural effusion or pneumothorax seen. MEDIASTINUM: Lack of IV contrast does not allow intravascular evaluation. There are no definitive gre ater than 1 cm hilar or mediastinal lymph nodes. No cardiomegaly or pericardial effusion, but there are prominent right and left coronary calcifications. SKELETAL: Advanced multilevel spondylosis changes are appreciated. These osteophytic changes account for the hyper sclerosis seen on radiographs.21 OTHER: None IMPRESSION: MARKED CORONARY CALCIFICATIONS.
[2020-11-27] MEDS: GABAPENTIN 300 MG CAP PO SCH ×2 (01:06→08:54)
[2020-11-27] MEDS: NITROGLYCERIN OINT 1 INCH/GM PACKET TOPICAL SCH ×2 (01:06→05:42)
[2020-11-27] MEDS ORDERED: LEVOTHYROXINE 88 MCG TAB PO SCH (06:30)
[2020-11-27 07:06] LABS: Glucose,Whole Blood 135 mg/dL (75-99)
[2020-11-27] MEDS ORDERED: PANTOPRAZOLE 40 MG TABLET PO SCH (07:30)
[2020-11-27] MEDS ORDERED: REGADENOSON 0.4 MG/5 ML SYRINGE IV PRN (08:26)
[2020-11-27] MEDS ORDERED: CAFFEINE CITRATE 60 MG/3 ML VIAL IV PRN (08:26)
[2020-11-27] MEDS ORDERED: AMINOPHYLLINE 500 MG/20 ML VIAL IV PRN (08:26)
[2020-11-27] MEDS: INSULIN ASPART (NovoLOG) 100 UNIT/ML VIAL SQ SCH ×2 (08:46→12:20)
[2020-11-27] MEDS: carvediloL 6.25 MG TAB PO SCH (08:46)
[2020-11-27] MEDS: DOXAZOSIN 4 MG TAB PO SCH (08:47)
[2020-11-27] MEDS: DOCUSATE 100 MG CAP PO SCH (08:48)
[2020-11-27] MEDS ORDERED: MULTIVITAMINS, THERA 1 EACH TAB PO SCH (09:00)
[2020-11-27] MEDS ORDERED: EZETIMIBE 10 MG TAB PO SCH (09:00)
[2020-11-27] MEDS ORDERED: lisinopriL 5 MG TAB PO SCH (09:00)
[2020-11-27] MEDS ORDERED: ASPIRIN 81 MG PO SCH ×2 (09:00)
[2020-11-27] MEDS ORDERED: ASPIRIN 325 MG TAB PO SCH (09:00)
[2020-11-27] MEDS ORDERED: amLODIPine 5 MG TAB PO SCH (09:00)
[2020-11-27] MEDS ORDERED: MAGNESIUM OXIDE 400 MG TAB PO SCH (09:00)
[2020-11-27] MEDS ORDERED: ATORVASTATIN 40 MG TAB PO SCH (09:00)
[2020-11-27 09:21] LABS: Chol/HDL Ratio 2.06; LDL Cholesterol,Calculated 38.6 mg/dL (0.0-131.0); VLDL Calculation 32.4 mg/dL (5.00-40.00)
--- NOTE | 2020-11-27 09:23 | HP ---
HISTORY AND PHYSICAL A 70-year-old female came in with severe chest pain, sharp pain into the chest, radiating around to the left side of her chest into her back. She has never had pain this significant, worse when she took a deep breath. Denied any fever, chills, weakness. She has had multiple stents. She was found to have hypertension acceleration. HOME MEDICATIONS: 1. Multivitamin. 2. Cozaar 100 daily. 3. Synthroid 100 mcg daily. 4. Protonix 40 daily. 5. Coreg 6.25 b.i.d. 6. Cardura 4 mg b.i.d. 7. Zetia 10 mg daily. 8. Neurontin 300 q.8. 9. [place] 10 q.6. 10.Krill oil 500 mg daily. 11.Magnesium 30 mg daily. 12.Meloxicam 15 daily. 13.Nitrostat 0.4 mg sublingual daily. 14.Crestor 20 daily. 15.Metformin 500 daily. ALLERGIES: Negative. REVIEW OF SYSTEMS: Fourteen-point review of systems negative except for mentioned in HPI. PAST MEDICAL HISTORY: GERD, hypertension, coronary artery disease, multiple stents, sleep apnea, rheumatoid arthritis. PAST SURGICAL HISTORY: Cholecystectomy, heart catheterization with stent, hysterectomy, colonoscopy, lithotripsy for renal stones. FAMILY HISTORY: Mother cancer. Father myocardial infarction. Brothers, coronary artery disease, myocardial infarction. Sister cancer. PHYSICAL EXAMINATION: Vital signs are stable, afebrile. CARDIOVASCULAR: S1, S2. LUNGS: Clear. No rales, rhonchi or wheezing. HEMATOLOGY: Negative Homans. PSYCH: Fair mood and affect. Pupils equal, round, reactive to light and accommodation. NEUROLOGIC: Alert and oriented x3. EKG sinus rhythm. A chest x-ray is negative. White count 7.3, hemoglobin is 15.1. Sodium 138, potassium 3.6, creatinine 0.67. ASSESSMENT: 1. Unstable angina pectoralis. 2. Atypical chest pain. Coronary artery consult, rule out thoracic neuropathy, . Please see further orders. MMODL / IJN: [id number] /
[2020-11-27 09:28] VITALS: BP 125/63; PULSE 68; RESP 18; TEMP 98.7
[2020-11-27] MEDS: NON FORMULARY DRUG (Lubiprostone [Amitiza] 24 MCG Capsule) PO SCH (10:10)
--- NOTE | 2020-11-27 11:05 | ECHOF ---
Referral Reason:cad MEASUREMENTS -------- HEIGHT: 160.0 cm WEIGHT: 111.1 kg BP: 144/68 RVIDd: 3.3 cm (< 3.3) IVSd: 1.5 cm (0.6 - 1.1) LVIDd: 4.5 cm (3.9 - 5.3) LVPWd: 1.4 cm (0.6 - 1.1) IVSs: 1.9 cm LVIDs: 2.9 cm LVPWs: 2.1 cm LA Diam: 3.8 cm (2.7 - 3.8) LAESV Index (A-L): 15.49 ml/m Ao Diam: 3.8 cm (2.0 - 3.7) AV Cusp: 2.2 cm (1.5 - 2.6) MV EXCURSION: 14.230 mm (> 18.000) MV EF SLOPE: 50 mm/s (70 - 150) EPSS: 0.3 cm MV E Oy: 0.92 m/s MV DecT: 300 ms MV A Yo: 1.18 m/s MV E/A Ratio: 0.78 RAP: 5.00 mmHg RVSP: 29.15 mmHg FINDINGS -------- Sinus rhythm. This was a technically difficult study with suboptimal views. The left ventricular size is normal. There is moderate concentric left ventricular hypertrophy. O verall left ventricular systolic function is normal with, an EF between 55 - 60 %. The diastolic fi lling pattern is normal for the age of the patient 16.71. The right ventricle is mildly enlarged. Normal LA size by volume 22+/-6 ml/m2. The right atrial size is normal. Lumason used Interatrial and interventricular septum intact. The aortic valve is trileaflet, and appears structurally normal. No aortic stenosis or regurgitation. Mild mitral annular calcification present. Mild mitral regurgitation is present. The tricuspid valve appears structurally normal. Mild tricuspid regurgitation present. Right vent ricular systolic pressure is normal at < 35 mmHg. The pulmonic valve was not well visualized. The aortic root size is normal. Normal inferior vena cava with normal inspiratory collapse consistent with estimated right atrial pre ssure of 5 mmHg. There is no pericardial effusion. CONCLUSIONS -------- 1. This was a technically difficult study with suboptimal views. 2. There is moderate concentric left ventricular hypertrophy. 3. Overall left ventricular systolic function is normal with, an EF between 55 - 60 %. 4. The right ventricle is mildly enlarged. 5. Lum[place] used 6. The aortic valve is trileaflet, and appears structurally normal. No aortic stenosis or regurgitati on. 7. Mild mitral annular calcification present. 8. Mild mitral regurgitation is present. 9. Mild tricuspid regurgitation present. 10. There is no pericardial effusion. NEWCOMER HOSTESS: Erica Kapadia RDCS
--- NOTE | 2020-11-27 11:29 | CONS ---
CONSULTATION Mrs. Mohan is a 70-year-old female with a known history of coronary artery disease who is followed by Dr. Moon in [place], who presented with symptoms of chest discomfort. She has underwent a stenting done in 2018 and apparently has done well since that time. She woke up the night before with discomfort in the chest and felt dyspneic. At that time, she checked her blood pressure and it is quite elevated. She continued to have elevated blood pressure during the day and came into Dr. Aburto with the same symptoms. Subsequently because of persistent symptoms, she came into the emergency room and she was admitted. The patient is not very active physically because of back discomfort. She has dyspnea on exertion. She has been complaining of the chest discomfort on and off for a while and has used nitroglycerin with some improvement at times. She has some palpitation and rare dizziness but no syncope. She has occasional peripheral edema, but no clear PND nor orthopnea. She has underwent a stress echocardiogram in 2019 that revealed no evidence of inducible ischemia. Her left ventricular systolic function in January of last year showed a preserved systolic function. Her coronary risk factors are remarkable for the history of hypertension, hyperlipidemia, and diabetes mellitus. She also has a strong family history of premature coronary artery disease. MEDICATION: Her medications at home include Amitiza, Cardura, aspirin, amlodipine 5 mg daily, metformin, Coreg 6.5 mg twice a day, Crestor 20 mg daily, Protonix 40 mg daily, Zetia 10 mg daily. REVIEW OF SYSTEMS: RESPIRATORY SYSTEM: She has a history of obstructive sleep apnea, history of dyspnea on exertion. No recent cough, no fever. GI SYSTEM: No recent GI bleeding. No peptic ulcer disease. SYSTEM: No dysuria or hematuria. NERVOUS SYSTEM: No history of seizure. She has a history of stroke in the past. PHYSICAL EXAMINATION: A 70-year-old female, alert, oriented, in no apparent distress. Blood pressure running in the 120s to 170s with the heart rate in the 60s to 70s. HEAD: Normocephalic. EYES: Sclerae anicteric. NECK: Good carotid upstroke. No bruit. No jugular venous distention. LUNGS: Clear to auscultation. HEART: Regular rate and rhythm. S1, S2. No S3 with systolic ejection murmur heard at the base. No diastolic murmur. No rub. ABDOMEN: Soft, obese, nontender. No organomegaly. EXTREMITIES: No edema. Chest wall tenderness reproducing the pain. LAB DATA: Lab data revealed troponin less than 0.012. BUN and creatinine 14 and 0.67. Potassium 3.6. Hemoglobin of 15.1. EKG revealed a sinus mechanism with a normal axis and poor progression with minor nonspecific ST-T wave changes. Chest x-ray shows no acute infiltrate. She underwent a thoracic spine x-ray that showed no acute changes. She had chest CT that showed calcification of the coronary arteries. IMPRESSION: 1. Chest discomfort of unclear etiology, some of the pain was reproducible by palpation in a patient known history of coronary artery disease. No evidence of acute coronary syndrome. 2. History of hypertension. 3. Hyperlipidemia. 4. Diabetes mellitus. 5. Prior history of stenting. RECOMMENDATION: I will recommend to stop the heparin. I will add lisinopril to her regimen, especially with a history of diabetes. I will obtain an echocardiogram with Doppler as well as a myocardial perfusion imaging to further assess her status and guide her treatment. The rationale behind the plan was discussed with the patient who is in full understanding and agreement. Thank you for this consult. We will follow with you. MMODL / IJN: [id number] /
[2020-11-27 11:58] LABS: Glucose,Whole Blood 103 mg/dL (75-99)
--- NOTE | 2020-11-27 12:38 | EST ---
EXERCISE STRESS AGE: 70 SEX: Female HT: 5'3" WT: 245 lbs. PROTOCOL: Lexiscan Cardiolite STAGE: N/A DURATION OF EXERCISE: N/A HEART RATE REST: 60 BLOOD PRESSURE REST: 133/60 MAXIMUM HEART RATE ACHIEVED: 90 MAXIMUM BLOOD PRESSURE: 142/61 85% MPHR: 126 100% MPHR: 148 METS: N/A INDICATIONS: Chest pain CLINICAL INFORMATION: Baseline rhythm is sinus mechanism, rate 60, left axis deviation, poor R progression. Baseline blood pressure 133/60 mmHg. Patient received injection of Lexiscan. Electrocardiograph monitoring revealed no evidence of diagnostic ischemic ST deviation. Cardiolite was injected per protocol. CONCLUSION: 1. Nondiagnostic electrocardiograph stress testing. 2. Nuclear images will be reported separately. MMODL / IJN: [id number] /
--- NOTE | 2020-11-27 12:41 | P.GSCN ---
History of Present Illness Consult date: 11/27/20 History of present illness: CHIEF COMPLAINT: Chest pain HISTORY OF PRESENT ILLNESS: This is a 70-year-old female with a known history of myocardial infarction, coronary artery disease with cardiac stent, COPD, obstructive sleep apnea, CVA, kidney stones, cholecystectomy and hysterectomy. Patient presents to the emergency room with complaints of chest pain on the left side of her chest with shortness of breath. She also reports having elevated blood pressures. She reports that her pain did get better with taking nitro. Patient's troponins were negative 3. She's been seen evaluated by cardiology and they have ordered a stress test. Surgical consult was placed in regards to patient's history of colon polyps. Her last colonoscopy was in February 2019 which had shown left colon polyps and diverticulosis. Patient does complain of constipation. But denies any blood in her stools. She denies any abdominal pain. She denies any fever chills or sweats. Denies any nausea or vomiting. PAST MEDICAL HISTORY: See list. PAST SURGICAL HISTORY: See list. MEDICATIONS: See list. ALLERGIES: See list. SOCIAL HISTORY: No illicit drug use. REVIEW OF SYSTEMS: CONSTITUTIONAL: Denies fever or chills. HEENT: Denies blurred vision, vision changes, or eye pain. Denies hemoptysis CARDIOVASCULAR: Denies chest pain or pressure. RESPIRATORY: No shortness of breath. GASTROINTESTINAL: See HPI for pertinent findings HEMATOLOGIC: Denies bleeding disorders. GENITOURINARY: Denies any blood in urine or increased urinary frequency. SKIN: Denies pruitis. Denies rash. PHYSICAL EXAM: VITAL SIGNS: Reviewed GENERAL: Well-developed in no acute distress. HEENT: No sclera icterus. Extraocular movements grossly intact. Moist buccal mucosa. Head is atraumatic, normocephalic. No nasal drainage. ABDOMEN: Soft. Obese. Nondistended. nontender NEUROLOGIC: Alert and oriented. Cranial nerves II through XII grossly intact. LABORATORY DATA: WBC 11.3 hemoglobin 15.1 ALT 69 troponins negative 3 ASSESSMENT: 1. Known history of colon polyps. No evidence of rectal bleeding. Last colonoscopy in February 2019 with left colon polyps and diverticulosis 2. Chest pain. Cardiac workup in progress PLAN: -Recommend colonoscopy in the outpatient setting Thank you for this consultation Physician Cloth Reeler note has been reviewed by physician. Signing provider agrees with the documented findings, assessment, and plan of care. Past Medical History Past Medical History: Diabetes Mellitus, GERD/Reflux, Hyperlipidemia, Hy pertension, Myocardial Infarction ([place]), Osteoarthritis (OA), Rheumatoid Arthritis (RA), Sleep Apnea/CPAP/BIPAP Additional Past Medical History / Comment(s): HX Kidney Stones. DIVERTICULITIS . BLOOD PRESSURE FLUCTUATES, LOOP recorder over a year ago. NARROWING OF SPINE W/ DISC PROB. USES C-PAP Last Myocardial Infarction Date:: 06/28/18 History of Any Multi-Drug Resistant Organisms: None Reported Past Surgical History: Cholecystectomy, Heart Catheterization With Stent, Hysterectomy Additional Past Surgical History / Comment(s): Lithotripsy, basket retrieval of kidney stones, COLONOSCOPY, loop recorder Past Anesthesia/Blood Transfusion Reactions: No Reported Reaction Additional Past Anesthesia/Blood Transfusion Reaction / Comm: BLOOD TRANSUFSION WHEN HAVING HER CHILDREN-NO REACTIONS TO BLOOD. Date of Last Stent Placement:: 06/28/18 Past Psychological History: No Psychological Hx Reported Additional Psychological History / Comment(s): Pt resides with her spouse. She is independent. Smoking Status: Former smoker Past Alcohol Use History: None Reported Additional Past Alcohol Use History / Comment(s): STARTED SMOKING AT AGE 18 AND QUIT AT AGE 25 (LITE SMOKER) Past Drug Use History: None Reported - Past Family History Mother Family Medical History: Cancer Additional Family Medical History / Comment(s): HAD LYMPHOMA THEN 15 YEARS LATER HAD SMALL CELL CA(TOMACH) Father Family Medical History: Myocardial Infarction ([place]) Additional Family Medical History / Comment(s): PT WAS 9 YEARS OLD WHEN HER FATHER FROM MASSIVE [place]. Brother(s) Family Medical History: Coronary Artery Disease (CAD), Myocardial Infarction ([place]) Additional Family Medical History / Comment(s): Pt had a 42 yrs old brother of a massive [place] and another brother who had CABG at the age of 39yrs. Sister(s) Family Medical History: Cancer Medications and Allergies Home Medications Medication Instructions Recorded Confirmed Type Multivitamins, Thera [Multivitamin 1 tab PO DAILY 10/12/16 11/26/20 History (formulary)] Aspirin 81 mg PO DAILY chew 11/28/16 11/26/20 Rx Pantoprazole [Protonix] 40 mg PO DAILY 10/05/19 11/26/20 History carvediloL [Coreg] 6.25 mg PO BID 10/06/19 11/26/20 History Doxazosin [Cardura] 4 mg PO BID 02/18/20 11/26/20 History Ezetimibe [Zetia] 10 mg PO DAILY 02/18/20 11/26/20 History Gabapentin [Neurontin] 300 mg PO Q8H 02/18/20 11/26/20 History Krill Oil 500 mg PO DAILY 02/18/20 11/26/20 History Magnesium 30mg 1 tab PO DAILY 02/18/20 11/26/20 History Nitroglycerin Sl Tabs [Nitrostat] 0.4 mg SUBLINGUAL Q5M PRN 02/18/20 11/26/20 History Rosuvastatin [Crestor] 20 mg PO DAILY 02/18/20 11/26/20 History metFORMIN HCL 500 mg PO DAILY 02/18/20 11/26/20 History Levothyroxine Sodium [Synthroid] 88 mcg PO DAILY 11/26/20 11/26/20 History Lubiprostone [Amitiza] 24 mcg PO BID 11/26/20 11/26/20 History amLODIPine BESYLATE 5 mg PO DAILY 11/26/20 11/26/20 History Allergies Allergy/AdvReac Type Severity Reaction Status Date / Time No Known Allergies Allergy Verified 11/26/20 15:20 Surgical - Exam Vital Signs Temp Pulse Resp BP Pulse Ox 97.6 F 86 16 174/96 96 11/26/20 13:54 11/26/20 13:54 11/26/20 13:54 11/26/20 13:54 11/26/20 13:54 Results - Labs 11/26/20 14:09 11/26/20 14:09 Abnormal Lab Results - Last 24 Hours (Table) 11/26/20 11/26/20 11/26/20 Range/Units 14:09 14:09 14:09 WBC 11.3 H (3.8-10.6) k/uL APTT 20.0 L (22.0-30.0) sec Glucose 131 H (74-99) mg/dL POC Glucose (mg/dL) (75-99) mg/dL ALT 69 H (4-34) U/L Triglycerides (0.0-149.0) mg/dL HDL Cholesterol (40.0-60.0) mg/dL 11/26/20 11/26/20 11/26/20 Range/Units 16:43 20:08 20:19 WBC (3.8-10.6) k/uL APTT 69.3 H (22.0-30.0) sec Glucose (74-99) mg/dL POC Glucose (mg/dL) 149 H 124 H (75-99) mg/dL ALT (4-34) U/L Triglycerides (0.0-149.0) mg/dL HDL Cholesterol (40.0-60.0) mg/dL 11/27/20 11/27/20 11/27/20 Range/Units 02:38 02:38 07:04 WBC (3.8-10.6) k/uL APTT 53.1 H (22.0-30.0) sec Glucose (74-99) mg/dL POC Glucose (mg/dL) 135 H (75-99) mg/dL ALT (4-34) U/L Triglycerides 162.0 H (0.0-149.0) mg/dL HDL Cholesterol 67.0 H (40.0-60.0) mg/dL 11/27/20 Range/Units 11:49 WBC (3.8-10.6) k/uL APTT (22.0-30.0) sec Glucose (74-99) mg/dL POC Glucose (mg/dL) 103 H (75-99) mg/dL ALT (4-34) U/L Triglycerides (0.0-149.0) mg/dL HDL Cholesterol (40.0-60.0) mg/dL Diabetes panel 11/26/20 11/27/20 Range/Units 14:09 02:38 Sodium 138 (137-145) mmol/L Potassium 3.6 (3.5-5.1) mmol/L Chloride 103 (98-107) mmol/L Carbon Dioxide 28 (22-30) mmol/L BUN 14 (7-17) mg/dL Creatinine 0.67 (0.52-1.04) mg/dL Glucose 131 H (74-99) mg/dL Calcium 9.1 (8.4-10.2) mg/dL AST 26 (14-36) U/L ALT 69 H (4-34) U/L Alkaline Phosphatase 84 (38-126) U/L Total Protein 6.3 (6.3-8.2) g/dL Albumin 3.9 (3.5-5.0) g/dL Triglycerides 162.0 H (0.0-149.0) mg/dL HDL Cholesterol 67.0 H (40.0-60.0) mg/dL Calcium panel 11/26/20 Range/Units 14:09 Calcium 9.1 (8.4-10.2) mg/dL Albumin 3.9 (3.5-5.0) g/dL Pituitary panel 11/26/20 Range/Units 14:09 Sodium 138 (137-145) mmol/L Potassium 3.6 (3.5-5.1) mmol/L Chloride 103 (98-107) mmol/L Carbon Dioxide 28 (22-30) mmol/L BUN 14 (7-17) mg/dL Creatinine 0.67 (0.52-1.04) mg/dL Glucose 131 H (74-99) mg/dL Calcium 9.1 (8.4-10.2) mg/dL Adrenal panel 11/26/20 Range/Units 14:09 Sodium 138 (137-145) mmol/L Potassium 3.6 (3.5-5.1) mmol/L Chloride 103 (98-107) mmol/L Carbon Dioxide 28 (22-30) mmol/L BUN 14 (7-17) mg/dL Creatinine 0.67 (0.52-1.04) mg/dL Glucose 131 H (74-99) mg/dL Calcium 9.1 (8.4-10.2) mg/dL Total Bilirubin 1.0 (0.2-1.3) mg/dL AST 26 (14-36) U/L ALT 69 H (4-34) U/L Alkaline Phosphatase 84 (38-126) U/L Total Protein 6.3 (6.3-8.2) g/dL Albumin 3.9 (3.5-5.0) g/dL
--- NOTE | 2020-11-27 13:11 | P.CNOR ---
History of Present Illness - [facility] Consult date: 11/27/20 Requesting physician: Nakul Aburto Consult reason: other (Thoracic degenerative changes on imaging) History of present illness: Patient is a very pleasant 70-year-old female who is seen and examined bedside in regards to her thoracic spine. Patient states she woke up at 2:00 this morning with severe burning chest pain on the left. She has a history of cardiac stent placement. She states she took some aspirin and nitro which did help improve her pain. She was brought to the emergency department for further evaluation. She was admitted to Dr. Aburto in medicine. She has been seen by cardiology and underwent further cardiac testing today including EKG and stress testing. Reviewing of imaging did show some changes at her thoracic spine. We were consulted in this regard. Patient states she is known have chronic pain at her cervical spine, lumbar spine, and thoracic spine. She denies any recent injuries. She states she continues to walk and perform exercises daily. She does have pain of the thoracic spine and stiffness. She has difficulty with extension. She denies any lower extremity weakness bilaterally. She does have some chronic right lower extremity radiculopathy. She states she has worked significant pain management in the outpatient setting. She followed with Dr. Davenport in pain management. [facility] she has not had any appointments with pain management. She states she would like further evaluation in the outpatient setting to have an appointment set up so she could be further evaluated to continue with pain management for her chronic symptoms. She does not have any acute change in her symptoms. Patient's other medical diagnoses include hyperlipidemia, hypertension, history of multiple cardiac s tent placement, history of myocardial infarction, rheumatoid arthritis, and sleep apnea. Past Medical History Past Medical History: Diabetes Mellitus, GERD/Reflux, Hyperlipidemia, Hypertension, Myocardial Infarction ([place]), Osteoarthritis (OA), Rheumatoid Arthritis (RA), Sleep Apnea/CPAP/BIPAP Additional Past Medical History / Comment(s): HX Kidney Stones. DIVERTICULITIS . BLOOD PRESSURE FLUCTUATES, LOOP recorder over a year ago. NARROWING OF SPINE W/ DISC PROB. USES C-PAP Last Myocardial Infarction Date:: 06/28/18 History of Any Multi-Drug Resistant Organisms: None Reported Past Surgical History: Cholecystectomy, Heart Catheterization With Stent, Hysterectomy Additional Past Surgical History / Comment(s): Lithotripsy, basket retrieval of kidney stones, COLONOSCOPY, loop recorder Past Anesthesia/Blood Transfusion Reactions: No Reported Reaction Additional Past Anesthesia/Blood Transfusion Reaction / Comm: BLOOD TRANSUFSION WHEN HAVING HER CHILDREN-NO REACTIONS TO BLOOD. Date of Last Stent Placement:: 06/28/18 Past Psychological History: No Psychological Hx Reported Additional Psychological History / Comment(s): Pt resides with her spouse. She is independent. Smoking Status: Former smoker Past Alcohol Use History: None Reported Additional Past Alcohol Use History / Comment(s): STARTED SMOKING AT AGE 18 AND QUIT AT AGE 25 (LITE SMOKER) Past Drug Use History: None Reported - Past Family History Mother Family Medical History: Cancer Additional Family Medical History / Comment(s): HAD LYMPHOMA THEN 15 YEARS LATER HAD SMALL CELL CA(TOMACH) Father Family Medical History: Myocardial Infarction ([place]) Additional Family Medical History / Comment(s): PT WAS 9 YEARS OLD WHEN HER FATHER FROM MASSIVE [place]. Brother(s) Family Medical History: Coronary Artery Disease (CAD), Myocardial Infarction ([place]) Additional Family Medical History / Comment(s): Pt had a 42 yrs old brother of a massive [place] and another brother who had CABG at the age of 39yrs. Sister(s) Family Medical History: Cancer Medications and Allergies Home Medications Medication Instructions Recorded Confirmed Type Multivitamins, Thera [Multivitamin 1 tab PO DAILY 10/12/16 11/26/20 History (formulary)] Aspirin 81 mg PO DAILY chew 11/28/16 11/26/20 Rx Pantoprazole [Protonix] 40 mg PO DAILY 10/05/19 11/26/20 History carvediloL [Coreg] 6.25 mg PO BID 10/06/19 11/26/20 History Doxazosin [Cardura] 4 mg PO BID 02/18/20 11/26/20 History Ezetimibe [Zetia] 10 mg PO DAILY 02/18/20 11/26/20 History Gabapentin [Neurontin] 300 mg PO Q8H 02/18/20 11/26/20 History Krill Oil 500 mg PO DAILY 02/18/20 11/26/20 History Magnesium 30mg 1 tab PO DAILY 02/18/20 11/26/20 History Nitroglycerin Sl Tabs [Nitrostat] 0.4 mg SUBLINGUAL Q5M PRN 02/18/20 11/26/20 History Rosuvastatin [Crestor] 20 mg PO DAILY 02/18/20 11/26/20 History metFORMIN HCL 500 mg PO DAILY 02/18/20 11/26/20 History Levothyroxine Sodium [Synthroid] 88 mcg PO DAILY 11/26/20 11/26/20 History Lubiprostone [Amitiza] 24 mcg PO BID 11/26/20 11/26/20 History amLODIPine BESYLATE 5 mg PO DAILY 11/26/20 11/26/20 History Allergies Allergy/AdvReac Type Severity Reaction Status Date / Time No Known Allergies Allergy Verified 11/26/20 15:20 Physical Examination Physical exam: Patient is awake, alert, and oriented 3 Vital signs stable Good chest excursion with deep inspiration and expiration Examination of thoracic and lumbar spine reveals skin is intact with no la cerations, abrasions, or bruises; no erythema, purulence or signs of infection No significant pain on palpation over the thoracic or lumbar spines Evidence of paravertebral spasm over the thoracic and lumbar spines bilaterally Dorsiflexion, plantarflexion, and extensor hallucis longus positive sustained bilaterally Lower extremity strength 5/5 bilaterally Patient is able to ambulate on toes and heels bilaterally without difficulty Pain with lumbar extension Straight leg test negative bilateral lower extremities No signs or symptoms of DVT; no calf pain No pain with internal and external rotation of the hips bilaterally Neurovascularly intact Results Pertinent studies: CT of the chest taken on 11/26/2020: Advanced multilevel thoracic spondylitic change in which these osteophytic changes account for the hyper sclerosis; marked coronary calcifications X-rays of the thoracic spine taken on 11/26/2020: No definite acute radiographic process; evidence of multilevel advanced spondylitic change with multifocal hypersclerosis - Labs Labs: Abnormal Lab Results - Last 24 Hours (Table) 11/26/20 11/26/20 11/26/20 Range/Units 14:09 14:09 14:09 WBC 11.3 H (3.8-10.6) k/uL APTT 20.0 L (22.0-30.0) sec Glucose 131 H (74-99) mg/dL POC Glucose (mg/dL) (75-99) mg/dL ALT 69 H (4-34) U/L Triglycerides (0.0-149.0) mg/dL HDL Cholesterol (40.0-60.0) mg/dL 11/26/20 11/26/20 11/26/20 Range/Units 16:43 20:08 20:19 WBC (3.8-10.6) k/uL APTT 69.3 H (22.0-30.0) sec Glucose (74-99) mg/dL POC Glucose (mg/dL) 149 H 124 H (75-99) mg/dL ALT (4-34) U/L Triglycerides (0.0-149.0) mg/dL HDL Cholesterol (40.0-60.0) mg/dL 11/27/20 11/27/20 11/27/20 Range/Units 02:38 02:38 07:04 WBC (3.8-10.6) k/uL APTT 53.1 H (22.0-30.0) sec Glucose (74-99) mg/dL POC Glucose (mg/dL) 135 H (75-99) mg/dL ALT (4-34) U/L Triglycerides 162.0 H (0.0-149.0) mg/dL HDL Cholesterol 67.0 H (40.0-60.0) mg/dL 11/27/20 Range/Units 11:49 WBC (3.8-10.6) k/uL APTT (22.0-30.0) sec Glucose (74-99) mg/dL POC Glucose (mg/dL) 103 H (75-99) mg/dL ALT (4-34) U/L Triglycerides (0.0-149.0) mg/dL HDL Cholesterol (40.0-60.0) mg/dL H & H 11/26/20 Range/Units 14:09 Hgb 15.1 (11.4-16.0) gm/dL Hct 44.0 (34.0-46.0) % Coagulation 11/26/20 Range/Units 14:09 INR 1.0 (<1.2) Result Diagrams: 11/26/20 14:09 11/26/20 14:09 Assessment and Plan Assessment: Assessment: Chronic thoracic pain Multilevel thoracic spondylitic change could be consistent with diffuse idiopathic skeletal hyperostosis Chronic cervical pain Chronic low back pain Acute chest pain History multiple cardiac stents Hyperlipidemia Hypertension History myocardial infarction Sleep apnea Rheumatoid arthritis (1) Chronic thoracic back pain Current Visit: Yes Status: Acute Code(s): M54.6 - PAIN IN THORACIC SPINE; G89.29 - OTHER CHRONIC PAIN SNOMED Code(s): 295266008570217 (2) Chronic cervical pain Current Visit: Yes Status: Acute Code(s): M54.2 - CERVICALGIA; G89.29 - OTHER CHRONIC PAIN SNOMED Code(s): 5151973880961 (3) Chronic lumbar pain Current Visit: Yes Status: Acute Code(s): M54.5 - LOW BACK PAIN; G89.29 - OTHER CHRONIC PAIN SNOMED Code(s): 153637534 (4) Lumbar back pain with radiculopathy affecting right lower extremity Current Visit: Yes Status: Acute Code(s): M54.16 - RADICULOPATHY, LUMBAR REGION SNOMED Code(s): 190664387 (5) Diffuse idiopathic skeletal hyperostosis Current Visit: Yes Status: Acute Code(s): M48.10 - ANKYLOSING HYPEROSTOSIS [FORESTIER], SITE UNSPECIFIED SNOMED Code(s): 06711702 (6) Acute chest pain Current Visit: Yes Status: Acute Code(s): R07.9 - CHEST PAIN, UNSPECIFIED SNOMED Code(s): 348380268 (7) History of myocardial infarction Current Visit: Yes Status: Acute Code(s): I25.2 - OLD MYOCARDIAL INFARCTION SNOMED Code(s): 822878551 (8) History of heart artery stent Current Visit: Yes Status: Acute Code(s): Z95.5 - PRESENCE OF CORONARY ANGIOPLASTY IMPLANT AND GRAFT SNOMED Code(s): 225677374 (9) Hyperlipidemia Current Visit: Yes Status: Acute Code(s): E78.5 - HYPERLIPIDEMIA, UNSPECIFIED SNOMED Code(s): 63729375 (10) Sleep apnea Current Visit: Yes Status: Acute Code(s): G47.30 - SLEEP APNEA, UNSPECIFIED SNOMED Code(s): 18529935 (11) Rheumatoid arthritis Current Visit: Yes Status: Acute Code(s): M06.9 - RHEUMATOID ARTHRITIS, UNSPECIFIED SNOMED Code(s): 56011360 (12) Hypertension Current Visit: No Status: Acute Code(s): I10 - ESSENTIAL (PRIMARY) HYPERTENSION SNOMED Code(s): 59325354 Plan: Plan: 1. After further discussion with the patient, physical examination the patient, and reviewing of imaging, we will currently planned to continue with cons ervative treatment. Patient is known to have chronic pain at her cervical spine, thoracic spine, and lumbar spine. Reviewing the imaging does show evidence of chronic change at her thoracic spine. We do not see evidence of acute change. She is not experiencing any new onset symptoms. She denies any lower extremity weakness bilaterally. She continues with chronic stiffness and pain in her thoracic spine. Patient previously followed with Dr. Davenport in pain management the outpatient setting for a number of years with good control of her symptoms. [facility] and she has not had a stained glass painter to follow-up with. We discussed that we will plan have her follow up with us in the outpatient setting. We may plan to obtain further imaging at that time depending on how recently her other imaging was performed. We will then plan to refer her to pain management for control of her chronic symptoms. At this time she is clear for discharge from an orthopedic spine standpoint. Following discharge, patient may follow-up with Nba Benz PA-C or Dr. Bharathi Flores at [facility] in 2-3 weeks. 2. Patient will continue with further treatment and evaluation by multiple other medical providers including medicine and cardiology Time with Patient: Greater than 30 (Including obtaining history, physical examination, reviewing of imaging, and dictation.)
--- NOTE | 2020-11-27 13:33 | NM ---
EXAMINATION TYPE: NM stress lexiscan cardiolite DATE OF EXAM: 11/27/2020 COMPARISON: 11/21/2016 HISTORY: Chest pain TECHNIQUE: After the intravenous administration of 10.3 mCi Tc 99m Sestamibi - Cardiolite resting SP ECT images acquired 60 minutes post injection. The patient received 0.4mg Lexiscan, 25.1 mCi Tc 99m Sestamibi - Stress images obtained [address] injection FINDINGS: Review of stress and rest SPECT images demonstrates decreased perfusion on stress images involving th e lateral wall which may reflect stress-induced ischemia. Decreased perfusion at rest involving the c ardiac apex and inferior wall appears improved following stress imaging and could be related to remot e insult.. Gated analysis shows normal wall motion with an estimated left ventricular ejection fracti on of 56 %. IMPRESSION: Stress induced ischemia lateral wall is difficult to exclude.
== END 2020-11-27 16:22 | disposition home or self-care (01) ==
LOC: EC 13:41 → 6NMEDSUR 15:10
PROVIDERS: ADMIT Family Medicine; ATTEND Family Medicine
DX: R07.89 Other chest pain (principal); I10 Essential (primary) hypertension; K21.9 Gastro-esophageal reflux disease without esophagitis; I25.10 Atherosclerotic heart disease of native coronary artery without angina pectoris; M06.9 Rheumatoid arthritis, unspecified; I25.110 Atherosclerotic heart disease of native coronary artery with unstable angina pectoris; R42 Dizziness and giddiness; R60.0 Localized edema; E11.9 Type 2 diabetes mellitus without complications; E78.5 Hyperlipidemia, unspecified; G47.33 Obstructive sleep apnea (adult) (pediatric); E66.9 Obesity, unspecified; Z68.41 Body mass index [BMI] 40.0-44.9, adult; G89.29 Other chronic pain; M54.2 Cervicalgia; M54.6 Pain in thoracic spine; M54.16 Radiculopathy, lumbar region; M48.10 Ankylosing hyperostosis [Forestier], site unspecified; M47.814 Spondylosis without myelopathy or radiculopathy, thoracic region; I25.2 Old myocardial infarction; J44.9 Chronic obstructive pulmonary disease, unspecified; K59.00 Constipation, unspecified; M19.90 Unspecified osteoarthritis, unspecified site; Z99.89 Dependence on other enabling machines and devices; Z90.710 Acquired absence of both cervix and uterus; Z90.49 Acquired absence of other specified parts of digestive tract; Z87.442 Personal history of urinary calculi; Z86.010 Personal history of colon polyps; Z86.73 Personal history of transient ischemic attack (TIA), and cerebral infarction without residual deficits; Z87.19 Personal history of other diseases of the digestive system; Z95.818 Presence of other cardiac implants and grafts; Z87.891 Personal history of nicotine dependence; Z95.5 Presence of coronary angioplasty implant and graft; Z79.899 Other long term (current) drug therapy; Z79.890 Hormone replacement therapy; Z79.891 Long term (current) use of opiate analgesic; Z79.84 Long term (current) use of oral hypoglycemic drugs; Z79.82 Long term (current) use of aspirin; Z79.1 Long term (current) use of non-steroidal anti-inflammatories (NSAID); Z82.49 Family history of ischemic heart disease and other diseases of the circulatory system; Z80.7 Family history of other malignant neoplasms of lymphoid, hematopoietic and related tissues; Z80.0 Family history of malignant neoplasm of digestive organs
CPT/HCPCS: 96366; 93005 ×2; 96376; 96365; 99291; 36415; 93017; 80061; 80053; 83735; 84484; 85025; 85610; 85730 ×2; 72072; 71046; 71250; 78452; G0378 ×2; C8929; A9500; J1644 ×2; J2785; Q9950; 93306

== ENCOUNTER 2020-12-21 13:35 | Inpatient (IN) | payer MEDICARE ==
[2020-12-21] MEDS ORDERED: NITROGLYCERIN SL TABS 0.4 MG TAB SUBLINGUAL PRN (17:19)
[2020-12-21 17:41] LABS: Glucose,Whole Blood 107 mg/dL (75-99)
[2020-12-21 17:48] LABS: Basophils % (A) 0 %; Eosinophils % (A) 0 %; HCT 42.8 % (34.0-46.0); HGB 14.3 gm/dL (11.4-16.0); Lymphocytes # (A) 1.3 k/uL (1.0-4.8); Lymphocytes % (A) 15 %; MCH 29.7 pg (25.0-35.0); MCHC 33.5 g/dL (31.0-37.0); MCV 88.9 fL (80.0-100.0); Mean Platelet Volume 8.1; Monocytes # (A) 0.4 k/uL (0-1.0); Monocytes % (A) 4 %; Neutrophils # (A) 6.9 k/uL (1.3-7.7); Neutrophils % (A) 80 %; Platelet Count 219 k/uL (150-450); RBC 4.82 m/uL (3.80-5.40); RDW 14.2 % (11.5-15.5); WBC 8.6 k/uL (3.8-10.6)
[2020-12-21 17:53] LABS: Appearance,Urine Clear (Clear); Bilirubin,Urine Negative (Negative); Blood,Urine Negative (Negative); Color,Urine Yellow; Glucose,Urine (UA) Negative (Negative); Ketones,Urine Negative (Negative); Leukocyte Esterase,Urine Moderate (Negative); Mucus,Urine Rare /hpf; Nitrite,Urine Negative (Negative); Protein,Urine Negative (Negative); RBC,Urine 1 /hpf (0-5); Specific Gravity,Urine 1.014 (1.001-1.035); Squamous Epithelial Cell,Urine 1 /hpf (0-4); Urobilinogen,Urine <2.0 mg/dL (<2.0); WBC,Urine 4 /hpf (0-5)
[2020-12-21 17:57] LABS: ALT 83 U/L (4-34); AST 42 U/L (14-36); African American GFR (CKD) >90 (>60 ml/min/1.73 sqM); Albumin/Globulin Ratio 1.7; Alkaline Phosphatase 79 U/L (38-126); Anion Gap 5 mmol/L; Blood Urea Nitrogen 12 mg/dL (7-17); Calcium 9.2 mg/dL (8.4-10.2); Carbon Dioxide 31 mmol/L (22-30); Chloride 103 mmol/L (98-107); Globulin 2.3 g/dL; Glucose 116 mg/dL (74-99); Non-African American GFR(CKD) >90 (>60 ml/min/1.73 sqM); Potassium 4.2 mmol/L (3.5-5.1); Sodium 139 mmol/L (137-145); Total Bilirubin 0.9 mg/dL (0.2-1.3); Total Protein 6.3 g/dL (6.3-8.2)
[2020-12-21] MEDS: SODIUM CHLORIDE 0.9% 1,000 ML IV SCH (18:16)
[2020-12-21] MEDS: KETOROLAC 15 MG/ML 1 ML VIAL IVP SCH (18:20)
[2020-12-21] MEDS: GABAPENTIN 300 MG CAP PO SCH (18:20)
[2020-12-21] MEDS: HEPARIN SODIUM,PORCINE 5,000 UNIT/ML 1 ML VIAL SQ SCH (18:20)
[2020-12-21] MEDS: AMOXICILLIN 500 MG CAP PO SCH (19:57)
[2020-12-21 20:00] LABS: Glucose,Whole Blood 132 mg/dL (75-99)
--- NOTE | 2020-12-21 20:56 | XR ---
EXAMINATION TYPE: XR chest 2V DATE OF EXAM: 12/21/2020 COMPARISON: 11/26/2020. HISTORY: Shortness of breath. TECHNIQUE: Frontal and lateral views of the chest are obtained. FINDINGS: There is mild left basilar atelectasis. No focal infiltrate, pleural effusion, or pneumoth orax seen. The cardiac silhouette size is within normal limits. The osseous structures are intact. Overlying loop recorder is seen. IMPRESSION: No acute cardiopulmonary process.
--- NOTE | 2020-12-21 21:00 | CT ---
EXAMINATION TYPE: CT brain wo con DATE OF EXAM: 12/21/2020 COMPARISON: 10/05/2019. HISTORY: c/o dizziness CT DLP: 1017.9 mGycm Automated exposure control for dose reduction was used. FINDINGS: There is no acute intracranial hemorrhage, midline shift or hydrocephalus. There is mild parenchymal volume loss. White matter is grossly preserved. The paranasal sinuses and mastoid air cells are adequ ately aerated. The calvarium is intact. IMPRESSION: NO ACUTE INTRACRANIAL ABNORMALITY.
[2020-12-22] MEDS: KETOROLAC 15 MG/ML 1 ML VIAL IVP SCH ×3 (00:18→11:27)
[2020-12-22] MEDS: GABAPENTIN 300 MG CAP PO SCH ×4 (00:19→23:16)
[2020-12-22] MEDS: HEPARIN SODIUM,PORCINE 5,000 UNIT/ML 1 ML VIAL SQ SCH ×4 (00:19→23:16)
[2020-12-22] MEDS: LEVOTHYROXINE 88 MCG TAB PO SCH (05:25)
[2020-12-22] MEDS: SODIUM CHLORIDE 0.9% 1,000 ML IV SCH ×2 (05:26→20:08)
[2020-12-22 07:00] LABS: Glucose,Whole Blood 102 mg/dL (75-99)
[2020-12-22] MEDS: carvediloL 6.25 MG TAB PO SCH (08:55)
[2020-12-22] MEDS: EZETIMIBE 10 MG TAB PO SCH (08:55)
[2020-12-22] MEDS: MAGNESIUM 30 MG PO SCH (08:56)
[2020-12-22] MEDS: MULTIVITAMINS, THERA 1 EACH TAB PO SCH (08:56)
[2020-12-22] MEDS: ATORVASTATIN 40 MG TAB PO SCH (08:56)
[2020-12-22] MEDS: amLODIPine 5 MG TAB PO SCH (08:56)
[2020-12-22] MEDS: DOXAZOSIN 4 MG TAB PO SCH (08:56)
[2020-12-22] MEDS: PANTOPRAZOLE 40 MG TABLET PO SCH (08:56)
[2020-12-22] MEDS: AMOXICILLIN 500 MG CAP PO SCH ×2 (08:56→20:08)
[2020-12-22] MEDS: lisinopriL 5 MG TAB PO SCH (08:56)
[2020-12-22] MEDS: predniSONE 10 MG TAB PO SCH (08:56)
[2020-12-22] MEDS ORDERED: ASPIRIN 81 MG PO SCH (09:00)
[2020-12-22 09:13] LABS: Basophils # (A) 0.03 X 10*3/uL (0.00-0.10); Basophils % (A) 0.4 %; Eosinophils # (A) 0.02 X 10*3/uL (0.04-0.35); Eosinophils % (A) 0.3 %; HCT 38.8 % (37.2-46.3); HGB 12.4 g/dL (12.0-15.0); Lymphocytes # (A) 1.95 X 10*3/uL (0.90-5.00); Lymphocytes % (A) 26.8 %; MCH 28.8 pg (27.0-32.0); MCV 90.2 fL (80.0-97.0); Mean Platelet Volume 11.8 fL (9.5-12.2); Monocytes # (A) 0.51 X 10*3/uL (0.20-1.00); Neutrophils # (A) 4.72 X 10*3/uL (1.80-7.70); Neutrophils % (A) 64.9 %; Platelet Count 218 X 10*3/uL (140-440); RDW 13.8 % (11.5-14.5); WBC 7.27 X 10*3/uL (4.50-10.00)
[2020-12-22 09:50] LABS: African American GFR (CKD) 105.5 (60.0-200.0); Albumin 3.4 g/dL (3.80-4.90); Anion Gap 7.9 mmol/L (4.00-12.00); BUN/Creat Ratio 18.33 Ratio (12.00-20.00); Carbon Dioxide 29.1 mmol/L (21.6-31.8); Globulin 1.7 g/dL (1.6-3.3); Non-African American GFR(CKD) 91.1 (60.0-200.0); Potassium 3.8 mmol/L (3.5-5.5); Total Bilirubin 0.7 mg/dL (0.3-1.2); Total Protein 5.1 g/dL (6.2-8.2)
--- NOTE | 2020-12-22 10:06 | CONS ---
CONSULTATION Thelma is a 70-year-old lady with history of coronary artery disease status post prior myocardial infarction and angioplasty in 2018, who follows with a oxidation engineer out of [facility], sees Dr. Nakul Aburto for her primary care needs and she is admitted directly from his office with symptoms of not feeling well, fatigued, weakness in her legs and intermittent episodes of chest pain and left arm discomfort. He admitted her directly to the hospital, obtained a troponin that is negative. Consulted Neurology and Cardiology. The patient was in the hospital last month with very similar chest discomfort, ruled out for myocardial infarction and underwent a stress test. She had an echocardiogram also. The echo showed normal LV systolic function without significant wall motion abnormalities. On stress testing, the lateral wall showed a reversible perfusion defect. She was discharged home and it is unclear if she was followed up by her own oxidation engineer. At the time of my evaluation this morning, she appears comfortable at rest and is free of chest pain. PAST MEDICAL HISTORY: Significant for hypertension, diabetes, dyslipidemia, spinal stenosis, loop recorder implant, coronary artery disease, status post prior coronary intervention. MEDICATIONS: Medications at home included Trulicity, Coreg, Neurontin, amlodipine, Crestor, Synthroid, Zestril, Protonix, Zetia, Cardura, aspirin and magnesium. ALLERGIES: There are no known drug allergies. FAMILY HISTORY: Family history is negative for premature coronary artery disease. SOCIAL HISTORY: Social history is negative for current smoking, EtOH abuse, or drug abuse. REVIEW OF SYSTEMS: HEENT is unremarkable. CARDIAC: As described above. RESPIRATORY: As described above. GI: Negative. GENITOURINARY: Negative. ALLERGY/IMMUNOLOGY: Negative. SKIN: Negative. MUSCULOSKELETAL: Significant for arthritis. PSYCHOSOCIAL: Negative. ENDOCRINE: Negative. HEMATOLOGIC: Negative. DERM: Negative. CONSTITUTIONAL: Negative. ONCOLOGICAL: Negative. GROUP PRESIDENT: Significant for tingling and numbness in the arm, Weakness, fatigue, blurred vision and weakness in the legs. PHYSICAL EXAMINATION: On exam, comfortable at rest. Vital signs are stable. Chest exam reveals good air entry bilaterally. Heart exam reveals first and second heart sounds. No gallop. No murmur. No rub. Abdomen is soft, nontender. Examination of extremities did not reveal any edema. Peripheral pulses are felt. GROUP PRESIDENT exam did not reveal focal neurological deficits. LABS: Labs showed a hemoglobin of 14.3. Potassium is 4.2. Creatinine is 0.6. One set of troponin is negative. AST and ALT are slightly elevated. EKG, I do not have an EKG on this admission. ASSESSMENT: 1. Precordial chest pain, atypical, probably noncardiac. 2. Abnormal stress test. 3. Weakness, tremor, fatigue, blurred vision, pending neurology evaluation. 4. Coronary artery disease, status post angioplasty. PLAN: I am going to review outpatient records. Review the stress test and echo findings. Since the patient does not have any chest pain, I am not going to perform any cardiac catheterization on her. We need to review her prior records and see if the lateral wall ischemia correlates with her angiographic data. If it does, we should continue with medical therapy. But if this is new ischemia and patient continues to have unexplained chest discomfort once the neurological issues have resolved and have been fully addressed, we should consider invasive angiography. MMODL / IJN: [id number] /
[2020-12-22 11:52] LABS: Glucose,Whole Blood 109 mg/dL (75-99)
--- NOTE | 2020-12-22 12:52 | P.PN ---
Progress Note - Text Progress Note Date: 12/22/20 This is an addendum to the cardiac consultation dictated today by Dr. Zepeda: Patient underwent cardiac catheterization in May 2018 and [facility] secondary to inferior STEMI. Patient underwent PCI of the proximal RCA which was 99% occluded. Additional findings included 20% ostial LAD, 10% proximal LAD, 20% mid LAD. Left circumflex: Codominant artery, at the bifurcation site of the OM and the left circumflex, though left circumflex shows a borderline 4050 percent lesion, this vessel is of small size and not at target for intervention. The OM branch which is a sizable branch was a 20% diffuse proximal stenosis. Patient may have had some progression of the lesion in the circumflex which may account for her abnormal stress test in October 2020. We will continue with medical management at this time per Dr. Zepeda. Further recommendations pending patient course. Nurse practitioner note has been reviewed by physician. Signing provider agrees with the documented findings, assessment, and plan of care.
[2020-12-22] MEDS: LACTULOSE 20 GM/30 ML CUP PO SCH ×4 (13:09→15:50)
[2020-12-22 14:54] LABS: Glucose,Whole Blood 138 mg/dL (75-99)
--- NOTE | 2020-12-22 15:19 | P.GSCN ---
History of Present Illness Consult date: 12/22/20 History of present illness: CHIEF COMPLAINT: Left arm tingling and blurred vision HISTORY OF PRESENT ILLNESS: This is a 70-year-old female with a known past medical history of myocardial infarction, coronary artery disease cardiac stent, COPD, sleep apnea, CVA, cholecystectomy and hysterectomy. Patient is a direct admit from Dr. Aburto's office. She is complaining of left arm tingling and blurred vision. Patient was admitted to the hospital in October for chest pain and did have a stress test. Patient is being evaluated by cardiology. They are recommending medical management. Patient is also being followed by neurology regarding possible TIA like symptoms. She did have computed tomography scan of the brain which was negative. Surgical service has been consulted in regards to constipation. Patient's last bowel movement was Monday after enema and it was only a small amount. She is complaining of abdominal discomfort and bloating with nausea. She denies any vomiting. She has chronic issues with constipation. She also has a known history of a colon polyp. And her last colonoscopy was in February 2019. Patient seen and examined with Dr. august PAST MEDICAL HISTORY: See list. PAST SURGICAL HISTORY: See list. MEDICATIONS: See list. ALLERGIES: See list. SOCIAL HISTORY: No illicit drug use. REVIEW OF SYSTEMS: CONSTITUTIONAL: Denies fever or chills. HEENT: Denies blurred vision, vision changes, or eye pain. Denies hemoptysis CARDIOVASCULAR: Denies chest pain or pressure. RESPIRATORY: No shortness of breath. GASTROINTESTINAL: See HPI for pertinent findings HEMATOLOGIC: Denies bleeding disorders. GENITOURINARY: Denies any blood in urine or increased urinary frequency. SKIN: Denies pruitis. Denies rash. PHYSICAL EXAM: VITAL SIGNS: Reviewed GENERAL: Well-developed in no acute distress. HEENT: No sclera icterus. Extraocular movements grossly intact. Moist buccal mucosa. Head is atraumatic, normocephalic. No nasal drainage. ABDOMEN: Soft. Obese. Mildly distended Mild diffuse tenderness NEUROLOGIC: Alert and oriented. Cranial nerves II through XII grossly intact. LABORATORY DATA: WBC 7.27 and Hgb 12.4 creatinine 0.6 ALT 63 AST 27 total bili 0.7 IMAGING: Computed tomography scan of the brain negative chest x-ray negative ASSESSMENT: 1. Abdominal pain and bloating likely due to constipation 2. Chronic constipation 3. History of colon polyp 4. Left arm tingling and blurred vision patient to be evaluated by neurology PLAN: -We will give lactulose one every hour 3 doses and soapsuds enema -Recommend colonoscopy outpatient -Recommend full liquid diet for now until patient is having bowel movements -Continue neurology and cardiac workup Thank you for this consultation Physician Photography Instructor note has been reviewed by physician. Signing provider agrees with the documented findings, assessment, and plan of care. Past Medical History Past Medical History: Diabetes Mellitus, GERD/Reflux, Hyperlipidemia, Hypertension, Myocardial Infarction (PA), Osteoarthritis (OA), Rheumatoid Arthritis (RA), Sleep Apnea/CPAP/BIPAP Additional Past Medical History / Comment(s): HX Kidney Stones. DIVERTICULITIS . BLOOD PRESSURE FLUCTUATES, LOOP recorder over a year ago. NARROWING OF SPINE W/ DISC PROB. USES C-PAP Last Myocardial Infarction Date:: 06/28/18 History of Any Multi-Drug Resistant Organisms: None Reported Past Surgical History: Cholecystectomy, Heart Catheterization With Stent, Hysterectomy Additional Past Surgical History / Comment(s): Lithotripsy, basket retrieval of kidney stones, COLONOSCOPY, loop recorder Past Anesthesia/Blood Transfusion Reactions: No Reported Reaction Additional Past Anesthesia/Blood Transfusion Reaction / Comm: BLOOD TRANSUFSION WHEN HAVING HER CHILDREN-NO REACTIONS TO BLOOD. Date of Last Stent Placement:: 06/28/18 Past Psychological History: No Psychological Hx Reported Additional Psychological History / Comment(s): Pt resides with her spouse. She is independent. Smoking Status: Former smoker Past Alcohol Use History: None Reported Additional Past Alcohol Use History / Comment(s): STARTED SMOKING AT AGE 18 AND QUIT AT AGE 25 (LITE SMOKER) Past Drug Use History: None Reported - Past Family History Mother Family Medical History: Cancer Additional Family Medical History / Comment(s): HAD LYMPHOMA THEN 15 YEARS LATER HAD SMALL CELL CA(TOMACH) Father Family Medical History: Myocardial Infarction (PA) Additional Family Medical History / Comment(s): PT WAS 9 YEARS OLD WHEN HER FATHER FROM MASSIVE PA. Brother(s) Family Medical History: Coronary Artery Disease (CAD), Myocardial Infarction (PA) Additional Family Medical History / Comment(s): Pt had a 42 yrs old brother of a massive PA and another brother who had CABG at the age of 39yrs. Sister(s) Family Medical History: Cancer Medications and Allergies Home Medications Medication Instructions Recorded Confirmed Type Multivitamins, Thera [Multivitamin 1 tab PO DAILY 10/12/16 12/21/20 History (formulary)] Aspirin 81 mg PO DAILY chew 11/28/16 12/21/20 Rx Pantoprazole [Protonix] 40 mg PO DAILY 10/05/19 12/21/20 History carvediloL [Coreg] 6.25 mg PO DAILY 10/06/19 12/21/20 History Doxazosin [Cardura] 4 mg PO DAILY 02/18/20 12/21/20 History Ezetimibe [Zetia] 10 mg PO DAILY 02/18/20 12/21/20 History Gabapentin [Neurontin] 300 mg PO Q8H 02/18/20 12/21/20 History Magnesium 30mg 1 tab PO DAILY 02/18/20 12/21/20 History Nitroglycerin Sl Tabs [Nitrostat] 0.4 mg SUBLINGUAL Q5M PRN 02/18/20 12/21/20 History Rosuvastatin [Crestor] 20 mg PO DAILY 02/18/20 12/21/20 History metFORMIN HCL 500 mg PO DAILY 02/18/20 12/21/20 History Levothyroxine Sodium [Synthroid] 88 mcg PO DAILY 11/26/20 12/21/20 History amLODIPine BESYLATE 5 mg PO DAILY 11/26/20 12/21/20 History Amoxicillin 500 mg PO Q12H 12/21/20 12/21/20 History Dulaglutide [Trulicity] 0.75 mg SQ FR 12/21/20 12/21/20 History Krill/Om-3/Dha/Epa/Phospho/Ast 1 tab PO DAILY 12/21/20 12/21/20 History [Megared [place]-3 Krill 350 mg] lisinopriL [Zestril] 5 mg PO DAILY 12/21/20 12/21/20 History predniSONE 10 mg PO DAILY 12/21/20 12/21/20 History Allergies Allergy/AdvReac Type Severity Reaction Status Date / Time No Known Allergies Allergy Verified 12/21/20 17:02 Surgical - Exam Vital Signs Temp Pulse Resp BP Pulse Ox 97.4 F L 76 16 150/83 97 12/21/20 13:56 12/21/20 13:56 12/21/20 13:56 12/21/20 13:56 12/21/20 13:56 Results - Labs 12/22/20 05:42 12/22/20 05:42 Abnormal Lab Results - Last 24 Hours (Table) 12/21/20 12/21/20 12/21/20 Range/Units 17:32 17:39 17:40 Eosinophils # (0.04-0.35) X 10*3/uL Carbon Dioxide 31 H (22-30) mmol/L Glucose 116 H (74-99) mg/dL POC Glucose (mg/dL) 107 H (75-99) mg/dL Calcium (8.7-10.3) mg/dL AST 42 H (14-36) U/L ALT 83 H (4-34) U/L Total Protein (6.2-8.2) g/dL Albumin (3.80-4.90) g/dL Ur Leukocyte Esterase Moderate H (Negative) Urine Mucus Rare H (None) /hpf 12/21/20 12/22/20 12/22/20 Range/Units 19:58 05:42 05:42 Eosinophils # 0.02 L (0.04-0.35) X 10*3/uL Carbon Dioxide (22-30) mmol/L Glucose (74-99) mg/dL POC Glucose (mg/dL) 132 H (75-99) mg/dL Calcium 8.0 L (8.7-10.3) mg/dL AST (14-36) U/L ALT 63 H (4-34) U/L Total Protein 5.1 L (6.2-8.2) g/dL Albumin 3.40 L (3.80-4.90) g/dL Ur Leukocyte Esterase (Negative) Urine Mucus (None) /hpf 12/22/20 12/22/20 12/22/20 Range/Units 06:58 11:50 14:51 Eosinophils # (0.04-0.35) X 10*3/uL Carbon Dioxide (22-30) mmol/L Glucose (74-99) mg/dL POC Glucose (mg/dL) 102 H 109 H 138 H (75-99) mg/dL Calcium (8.7-10.3) mg/dL AST (14-36) U/L ALT (4-34) U/L Total Protein (6.2-8.2) g/dL Albumin (3.80-4.90) g/dL Ur Leukocyte Esterase (Negative) Urine Mucus (None) /hpf Diabetes panel 12/21/20 12/22/20 Range/Units 17:32 05:42 Sodium 139 144 (137-145) mmol/L Potassium 4.2 3.8 (3.5-5.1) mmol/L Chloride 103 107 (98-107) mmol/L Carbon Dioxide 31 H 29.1 (22-30) mmol/L BUN 12 11.0 (7-17) mg/dL Creatinine 0.61 0.6 (0.52-1.04) mg/dL Glucose 116 H 94 (74-99) mg/dL Calcium 9.2 8.0 L (8.4-10.2) mg/dL AST 42 H 27 (14-36) U/L ALT 83 H 63 H (4-34) U/L Alkaline Phosphatase 79 62 (38-126) U/L Total Protein 6.3 5.1 L (6.3-8.2) g/dL Albumin 4.0 3.40 L (3.5-5.0) g/dL Calcium panel 12/21/20 12/22/20 Range/Units 17:32 05:42 Calcium 9.2 8.0 L (8.4-10.2) mg/dL Albumin 4.0 3.40 L (3.5-5.0) g/dL Pituitary panel 12/21/20 12/22/20 Range/Units 17:32 05:42 Sodium 139 144 (137-145) mmol/L Potassium 4.2 3.8 (3.5-5.1) mmol/L Chloride 103 107 (98-107) mmol/L Carbon Dioxide 31 H 29.1 (22-30) mmol/L BUN 12 11.0 (7-17) mg/dL Creatinine 0.61 0.6 (0.52-1.04) mg/dL Glucose 116 H 94 (74-99) mg/dL Calcium 9.2 8.0 L (8.4-10.2) mg/dL Adrenal panel 12/21/20 12/22/20 Range/Units 17:32 05:42 Sodium 139 144 (137-145) mmol/L Potassium 4.2 3.8 (3.5-5.1) mmol/L Chloride 103 107 (98-107) mmol/L Carbon Dioxide 31 H 29.1 (22-30) mmol/L BUN 12 11.0 (7-17) mg/dL Creatinine 0.61 0.6 (0.52-1.04) mg/dL Glucose 116 H 94 (74-99) mg/dL Calcium 9.2 8.0 L (8.4-10.2) mg/dL Total Bilirubin 0.9 0.7 (0.2-1.3) mg/dL AST 42 H 27 (14-36) U/L ALT 83 H 63 H (4-34) U/L Alkaline Phosphatase 79 62 (38-126) U/L Total Protein 6.3 5.1 L (6.3-8.2) g/dL Albumin 4.0 3.40 L (3.5-5.0) g/dL
--- NOTE | 2020-12-22 15:36 | CT ---
EXAMINATION TYPE: CODE STROKE: CT brain wo contr DATE OF EXAM: 12/22/2020 HISTORY: code stroke. Acute onset neuro deficit. CT DLP: 978.2 mGycm. Automated Exposure Control for Dose Reduction was Utilized. TECHNIQUE: CT scan of the head is performed without contrast. COMPARISON: None. FINDINGS: There is no acute intracranial hemorrhage or midline shift identified. There is diffuse v entricular and sulcal prominence consistent with diffuse age-related cerebral atrophy. There is low- attenuation in the periventricular white matter consistent with chronic small vessel ischemic change. Slightly low-lying right cerebellar tonsil into foramen magnum axial image 4. No greater than 5 mm i nferior descent. Nasal septum slightly deviated to left of midline. No suspicious opacification masto id air cells. The globes are intact and the visualized sinuses are clear. IMPRESSION: No acute intracranial hemorrhage or midline shift. There is mild diffuse age-related ce rebral atrophy and chronic small vessel ischemic change noted.
--- NOTE | 2020-12-22 15:54 | CT ---
EXAMINATION TYPE: CT abdomen pelvis wo con DATE OF EXAM: 12/22/2020 COMPARISON: CT 10/09/2019 HISTORY: abdominal pain, nausea, vomiting CT DLP: 2444.6 mGycm Automated exposure control for dose reduction was used. TECHNIQUE: Helical acquisition of images from the lung bases through the pelvis. FINDINGS: Lack of intravenous contrast could compromise sensitivity of the exam. There is artifact ov er the exam. Metallic device present within the medial aspect of the left breast is partially visuali zed. There are coronary artery calcifications, metallic artifact also present is seen at the level of the mitral valve. There is a hiatal hernia present. LUNG BASES: No significant abnormality is appreciated. AORTA: No significant abnormality is appreciated. LIVER/GB: Patient is post cholecystectomy. No evident liver mass or dilated intrathoracic extrahepati c biliary ducts PANCREAS: No significant abnormality is seen. SPLEEN: No significant abnormality is seen. ADRENALS: No significant abnormality is seen. KIDNEYS: No significant abnormality is seen. REPRODUCTIVE ORGANS: Uterus and adnexal structures are not seen URINARY BLADDER: No significant abnormality is seen. BOWEL: Scattered diverticular change present within the colon. Rectum somewhat distended with stool, correlate to exclude fecal impaction. Stool filled colon is suspected. FREE AIR: No Free Air is visible. ASCITES: None visible. PELVIC ADENOPATHY: None visualized. RETROPERITONEAL ADENOPATHY: No Retroperitoneal Adenopathy visible. OSSEOUS STRUCTURES: Degenerative disc changes are present in the visualized spine, there may be diff use idiopathic skeletal hyperostosis bridging osteophytes and relative preservation of disc space in the thoracic spine IMPRESSION: RETAINED FECAL DEBRIS WITHIN THE COLON, SOME STOOL DISTENDS THE RECTUM, CORRELATE FOR POSSIBLE IMPACT ION, THERE IS DIVERTICULOSIS AND POSTOP CHANGE. Noncontrast exam.
[2020-12-22 16:32] LABS: HCT 44.2 % (34.0-46.0); HGB 14.2 gm/dL (11.4-16.0); MCH 28.7 pg (25.0-35.0); MCHC 32.1 g/dL (31.0-37.0); MCV 89.4 fL (80.0-100.0); Mean Platelet Volume 8.2; Platelet Count 216 k/uL (150-450); RBC 4.94 m/uL (3.80-5.40); RDW 14.6 % (11.5-15.5); WBC 9.9 k/uL (3.8-10.6)
--- NOTE | 2020-12-22 16:33 | P.CNNES ---
History of Present Illness Consult date: 12/22/20 Requesting physician: Nakul Aburto Reason for Consult: Dizziness/TIA/blurred vision History of Present Illness: Patient is a 70-year-old female came to the hospital yesterday at 1:46 PM for recurrent episodes of palpitations, fluctuating blood pressure, generalized weakness and blurred vision. Patient states that in the past 3 months she had about 4-5 spells, which starts with she feels her heart rate is racing, pounding in her cheek gets red, as she usually checks her blood pressure is high at that time. She notices blurred vision, generalized weakness. She feels nauseated. Patient usually sits down, feels cold at that time and puts covers and within an hour of this episode passes. The blurred vision usually lasts for a day and is gone by the next day. Patient denies any history of anxiety or panic attacks. Her orthostatics were checked when she arrived, was negative. Vital signs on arrival blood pressure 150/83, pulse rate 76, temperature 97.4 CT head showed no acute process. There is mild parenchymal volume loss. White matter is grossly preserved. Paranasal sinuses and mastoid air cells are well aerated. Chest x-ray was also normal. Patient's CBC, d-dimer, basic metabolic panel is normal. AST mildly elevated 42, ALT 83. UA shows moderate leukocyte esterase. Troponin negative Patient is known to me from previous admission to the hospital and September 2019, when she was seen in neurology consultation for paresthesias in both hands. Patient does have history of rheumatoid arthritis diagnosed a year ago. She states that she has been diagnosed with diabetes in the last couple years. Does have hypertension. Patient denies any tobacco or alcohol use. Patient states that she was seen by an eye doctor in August 2020 and everything was fine. She does have mild cataracts which does not need treatment at this time. No glaucoma. No hypertensive retinopathy. Patient also has sleep apnea for which she uses CPAP machine. Patient does take multivitamins, aspirin 81 mg, Protonix, Coreg, gabapentin 300 mg every 8 hours, metformin 500 mg daily, Crestor 20 mg, Zetia 10 mg, amlodipine 5 mg, prednisone 10 mg, lisinopril 5 mg and Trulicity Apparently today at 2 PM patient started complaining of feeling dizzy, not feeling right. Her blood pressure check was 175/70, pulse rate 79 and telemetry showing normal sinus rhythm. At 2:30 PM orthostatics were checked as recomm ended by cardiology. Patient's dizziness became worse, she became more weak, and at 2:45 PM, she stopped responding, her blood pressure dropped down to 70/30, her blood sugar was 138. She was not talking with altered mental status. Stroke code was activated. Shortly after the blood pressure did come up to 1:30/70 but she stated altered. Patient underwent stat computed tomography scan of the head, which revealed no acute intracranial hemorrhage or midline shift. There is mild diffuse age-related cerebral atrophy and chronic small vessel ischemic change. CTA of head and neck showed no significant abnormality within the vasculature. There is only mild atheromatous change. Vertebral arteries are patent. Left vertebral artery is dominant. No dissection. Patient was transferred to stepdown unit. At present (5 PM), patient states all symptoms have resolved. Even the blurred vision, which typically lasts for a day, has gone away. She appears very comfortable. Smiling, in no distress. Review of Systems As mentioned above in detail. Patient has constipation. Patient has some numbness of the hands related to neuropathy for which she was seen by myself a while ago. Patient has arthritis. All other review of systems reviewed and unremarkable. Past Medical History Past Medical History: Diabetes Mellitus, GERD/Reflux, Hyperlipidemia, Hypertension, Myocardial Infarction (VT), Osteoarthritis (OA), Rheumatoid Arthritis (RA), Sleep Apnea/CPAP/BIPAP Additional Past Medical History / Comment(s): HX Kidney Stones. DIVERTICULITIS . BLOOD PRESSURE FLUCTUATES, LOOP recorder over a year ago. NARROWING OF SPINE W/ DISC PROB. USES C-PAP Last Myocardial Infarction Date:: 06/28/18 History of Any Multi-Drug Resistant Organisms: None Reported Past Surgical History: Cholecystectomy, Heart Catheterization With Stent, Hysterectomy Additional Past Surgical History / Comment(s): Lithotripsy, basket retrieval of kidney stones, COLONOSCOPY, loop recorder Past Anesthesia/Blood Transfusion Reactions: No Reported Reaction Additional Past Anesthesia/Blood Transfusion Reaction / Comment(s): BLOOD TRANSUFSION WHEN HAVING HER CHILDREN-NO REACTIONS TO BLOOD. Date of Last Stent Placement:: 06/28/18 Past Psychological History: No Psychological Hx Reported Additional Psychological History / Comment(s): Pt resides with her spouse. She is independent. Smoking Status: Former smoker Past Alcohol Use History: None Reported Additional Past Alcohol Use History / Comment(s): STARTED SMOKING AT AGE 18 AND QUIT AT AGE 25 (LITE SMOKER) Past Drug Use History: None Reported - Past Family History Mother Family Medical History: Cancer Additional Family Medical History / Comment(s): HAD LYMPHOMA THEN 15 YEARS LATER HAD SMALL CELL CA(TOMACH) Father Family Medical History: Myocardial Infarction (VT) Additional Family Medical History / Comment(s): PT WAS 9 YEARS OLD WHEN HER FATHER FROM MASSIVE VT. Brother(s) Family Medical History: Coronary Artery Disease (CAD), Myocardial Infarction (VT) Additional Family Medical History / Comment(s): Pt had a 42 yrs old brother of a massive VT and another brother who had CABG at the age of 39yrs. Sister(s) Family Medical History: Cancer Medications and Allergies Home Medications Medication Instructions Recorded Confirmed Type Multivitamins, Thera [Multivitamin 1 tab PO DAILY 10/12/16 12/21/20 History (formulary)] Aspirin 81 mg PO DAILY chew 11/28/16 12/21/20 Rx Pantoprazole [Protonix] 40 mg PO DAILY 10/05/19 12/21/20 History carvediloL [Coreg] 6.25 mg PO DAILY 10/06/19 12/21/20 History Doxazosin [Cardura] 4 mg PO DAILY 02/18/20 12/21/20 History Ezetimibe [Zetia] 10 mg PO DAILY 02/18/20 12/21/20 History Gabapentin [Neurontin] 300 mg PO Q8H 02/18/20 12/21/20 History Magnesium 30mg 1 tab PO DAILY 02/18/20 12/21/20 History Nitroglycerin Sl Tabs [Nitrostat] 0.4 mg SUBLINGUAL Q5M PRN 02/18/20 12/21/20 History Rosuvastatin [Crestor] 20 mg PO DAILY 02/18/20 12/21/20 History metFORMIN HCL 500 mg PO DAILY 02/18/20 12/21/20 History Levothyroxine Sodium [Synthroid] 88 mcg PO DAILY 11/26/20 12/21/20 History amLODIPine BESYLATE 5 mg PO DAILY 11/26/20 12/21/20 History Amoxicillin 500 mg PO Q12H 12/21/20 12/21/20 History Dulaglutide [Trulicity] 0.75 mg SQ FR 12/21/20 12/21/20 History Krill/Om-3/Dha/Epa/Phospho/Ast 1 tab PO DAILY 12/21/20 12/21/20 History [Megared Jordan-3 Krill 350 mg] lisinopriL [Zestril] 5 mg PO DAILY 12/21/20 12/21/20 History predniSONE 10 mg PO DAILY 12/21/20 12/21/20 History Allergies Allergy/AdvReac Type Severity Reaction Status Date / Time No Known Allergies Allergy Verified 12/21/20 17:02 Physical Examination - Vital Signs Vital Signs: Vital Signs Temp Pulse Pulse Pulse Pulse Pulse Resp 12/22/20 15:11 106 H 16 12/22/20 14:32 84 91 81 12/22/20 14:00 97.4 F L 79 16 12/22/20 07:00 98.2 F 64 17 12/22/20 02:00 97.6 F 65 16 12/21/20 19:16 97.8 F 65 18 BP BP BP BP Pulse Ox 12/22/20 15:11 114/57 96 12/22/20 14:32 131/77 130/79 133/77 12/22/20 14:00 175/70 95 12/22/20 07:00 132/75 94 L 12/22/20 02:00 126/70 95 12/21/20 19:16 161/77 96 Intake and Output 12/22/20 12/22/20 12/22/20 06:59 14:59 22:59 Intake Total 900 Balance 900 Intake: Intake, IV Titration 900 Amount Sodium Chloride 0.9% 1, 900 000 ml @ 75 mls/hr IV . [id number] [facility] Rx#:[id number] Other: # Voids 1 1 On examination patient is an elderly female, very pleasant, in no acute distress. Patient is alert awake oriented to time place and person. Speech and language functions are normal. Attention, concentration and fund of knowledge is adequate. On cranial nerve exam his pupils are round and reactive to light, visual robled[place] are full to confrontation, extraocular muscles are intact with no nystagmus. Face is symmetric, tongue protrudes to the midline. Palatal elevation sensation, hearing and shoulder shrug normal. Facial sensation normal. On muscle strength testing there is no pronator drift and the strength is completely normal in arms and legs distally and proximally. Reflexes are 1 in the upper limbs at biceps and brachial radialis, absent in the lower limbs and plantars are flat. Sensory to touch is equal with no neglect. No ataxia for [id number] testing, tone and bulk of muscles normal. On general exam she there is no carotid bruit or murmur, peripheral pulses are present. Chest is clear, abdomen soft nontender. Results - Laboratory Findings CBC and BMP: 12/22/20 16:21 12/22/20 16:21 Abnormal Lab Findings: Abnormal Labs 12/21/20 12/21/20 12/21/20 17:32 17:39 17:40 Eosinophils # Carbon Dioxide 31 H Glucose 116 H POC Glucose (mg/dL) 107 H Calcium AST 42 H ALT 83 H Total Protein Albumin Ur Leukocyte Esterase Moderate H Urine Mucus Rare H 12/21/20 12/22/20 12/22/20 19:58 05:42 05:42 Eosinophils # 0.02 L Carbon Dioxide Glucose POC Glucose (mg/dL) 132 H Calcium 8.0 L AST ALT 63 H Total Protein 5.1 L Albumin 3.40 L Ur Leukocyte Esterase Urine Mucus 12/22/20 12/22/20 12/22/20 06:58 11:50 14:51 Eosinophils # Carbon Dioxide Glucose POC Glucose (mg/dL) 102 H 109 H 138 H Calcium AST ALT Total Protein Albumin Ur Leukocyte Esterase Urine Mucus Assessment and Plan Assessment: * Recurrent episodes of palpitations, with blurred vision, generalized weakness, that lasts for an hour, unclear etiology. Patient's blood pressure does go higher with these episodes, therefore hypertensive encephalopathy is a poss ibility. No evidence of vertebrobasilar insufficiency noted on CTA of head and neck. Her current neurological examination is normal. NIH stroke scale 0. Patient appears very comfortable, smiling despite having recent spell. Therefore panic disorder also in the differential. * Hypertension * Diabetes * Coronary artery disease, history of VT * Obesity * Rheumatoid arthritis Plan: * Increase aspirin to 325 mg daily. At this time I do not believe these episodes actually represent obvious TIA, as there are no lateralizing features. Therefore no indication for dual antiplatelet medication. * Optimize control of blood pressure, to target blood pressure <130/80. * Aggressive control of all vascular factors. * Patient's last hemoglobin A1c 6.5 on 10/06/2019, will recheck it. * Fasting lipid panel shows cholesterol 138, LDL 38, HDL 67 and triglycerides 162. Continue statins.
[2020-12-22 16:46] LABS: ALT 85 U/L (4-34); AST 64 U/L (14-36); African American GFR (CKD) >90 (>60 ml/min/1.73 sqM); Albumin 3.6 g/dL (3.5-5.0); Albumin/Globulin Ratio 1.6; Alkaline Phosphatase 101 U/L (38-126); Anion Gap 6 mmol/L; Blood Urea Nitrogen 15 mg/dL (7-17); Calcium 8.9 mg/dL (8.4-10.2); Carbon Dioxide 27 mmol/L (22-30); Chloride 107 mmol/L (98-107); Globulin 2.3 g/dL; Glucose 175 mg/dL (74-99); Magnesium 2.1 mg/dL (1.6-2.3); Non-African American GFR(CKD) 88 (>60 ml/min/1.73 sqM); Sodium 140 mmol/L (137-145); Total Protein 5.9 g/dL (6.3-8.2)
--- NOTE | 2020-12-22 16:49 | CT ---
EXAMINATION TYPE: CODE STROKE: CTA head neck DATE OF EXAM: 12/22/2020 HISTORY: code cva COMPARISON: CT brain 12/22/2020 CT DLP: 401.9 mGycm. Automated Exposure Control for Dose Reduction was Utilized. TECHNIQUE: CTA scan of the neck is performed with IV Contrast, patient injected with 65cc mL of Isov ue 370, axial images are obtained, coronal and sagittal reformatted images are reviewed. Three-D kalpesh nstructed images are created on an independent workstation and reviewed. FINDINGS: Carotid/Vascular Structures: [place] CTA shows patent anterior posterior circulation, there is no evident aneurysm, dissection, or embolus. There are cerebral vascular calcifications. Transverse aorta is patent, carotid, internal and extra carotid arteries are patent, there is no evid ence stenosis by NASCET criteria. Carotid bifurcation showed only mild atheromatous change, vertebral arteries are patent, left vertebral artery is dominant. Other: Lung apices are unremarkable. Degenerative disc changes are present visualized spine. IMPRESSION: No significant abnormality is seen within the vasculature, additional findings above.
[2020-12-22 16:58] LABS: Glucose,Whole Blood 146 mg/dL (75-99)
[2020-12-22] MEDS ORDERED: ASPIRIN 81 MG PO STA (17:28)
--- NOTE | 2020-12-22 17:50 | HP ---
HISTORY AND PHYSICAL This patient is a 70-year-old white female who was brought to the hospital for lightheadedness, dizziness, blurred vision, for possible TIA. She felt dizzy, lightheaded, and had near-syncope, felt she was going to pass out. She has also had some atypical chest pain. She has a history of multiple stents in her heart. She has chest pain in the anterior chest radiating to her back. Cardiology and neurology consults have been ordered. Her dizziness has become much worse in the past 24 hours. Severe orthostatic changes were seen today with blood pressure 175/70, dropping significantly to where she almost passed out, and a CODE STROKE was activated today. Blood pressure did come up to 130/70, but she was status. CT of the head shows no acute abnormalities. She was transferred to a step-down unit. PAST MEDICAL HISTORY: Diabetes mellitus, GERD, dyslipidemia, hypertension, coronary artery disease, myocardial infarction, osteoarthritis, rheumatoid arthritis, sleep apnea. PAST SURGICAL HISTORY: Cholecystectomy, heart catheterization with stent, hysterectomy, colonoscopy, loop recorders. FAMILY MEDICAL HISTORY: Mother with cancer, lymphoma. Father with myocardial infarction. Brother with coronary artery disease, myocardial infarction. Sister with cancer. HOME MEDICATIONS: 1. Multivitamin daily. 2. Aspirin 81 mg daily. 3. Protonix 40 mg daily. 4. Coreg 6.25 daily. 5. Cardura 4 mg daily. 6. Zetia 10 mg daily. 7. Neurontin 300 q.8. 8. Magnesium daily. 9. Crestor 20 daily. 10.Metformin 500 daily. 11.Synthroid 88 mcg daily. 12.Amlodipine 5 mg daily. 13.Trulicity 0.75 mg subcutaneously on Fridays. 14.Amoxicillin 500 q.12 hours for dental infection; recently had teeth pulled. 15.Zestril 5 mg daily. 16.Prednisone 10 daily. ALLERGIES: NEGATIVE. PHYSICAL EXAMINATION: VITAL SIGNS: Temperature 97 to 98, pulses 80s to 90s, respiratory rate 16 to 18. Blood pressure has been running, as mentioned above, with orthostatic changes to 130s to 170s. She states she has blurred vision. She looks weak, fatigued, near-syncopal. She is obese. BMI is over 40. CARDIOVASCULAR: S1, S2. LUNGS: Clear. GI: Soft. HEMATOLOGY: Negative Homans. PSYCH: Fair mood and affect. ASSESSMENT AND PLAN: Neurologic and cardiac workup for near-syncope, possible TIA, rule out orthostatic changes, atypical chest pain. History of coronary artery disease. Rule out myocardial infarction. Prognosis extremely guarded. MMJULIANAL / IJN: [id number] /
[2020-12-22 20:08] LABS: Glucose,Whole Blood 194 mg/dL (75-99)
[2020-12-22] MEDS: INSULIN ASPART (NovoLOG) 100 UNIT/ML VIAL SQ SCH (20:08)
[2020-12-23 01:27] LABS: Hemoglobin A1C 6.9 % (4.0-6.0)
[2020-12-23 06:05] LABS: Glucose,Whole Blood 120 mg/dL (75-99)
[2020-12-23] MEDS: INSULIN ASPART (NovoLOG) 100 UNIT/ML VIAL SQ SCH ×4 (06:24→20:08)
[2020-12-23] MEDS: carvediloL 6.25 MG TAB PO SCH (06:28)
[2020-12-23] MEDS: LEVOTHYROXINE 88 MCG TAB PO SCH (06:28)
[2020-12-23] MEDS: predniSONE 10 MG TAB PO SCH (07:41)
[2020-12-23] MEDS: HEPARIN SODIUM,PORCINE 5,000 UNIT/ML 1 ML VIAL SQ SCH ×2 (07:41→16:06)
[2020-12-23] MEDS: AMOXICILLIN 500 MG CAP PO SCH ×2 (07:41→20:45)
[2020-12-23] MEDS: DOXAZOSIN 4 MG TAB PO SCH (07:42)
[2020-12-23] MEDS: EZETIMIBE 10 MG TAB PO SCH (07:42)
[2020-12-23] MEDS: amLODIPine 5 MG TAB PO SCH (07:42)
[2020-12-23] MEDS: PANTOPRAZOLE 40 MG TABLET PO SCH (07:42)
[2020-12-23] MEDS: ATORVASTATIN 40 MG TAB PO SCH (07:42)
[2020-12-23] MEDS: GABAPENTIN 300 MG CAP PO SCH ×2 (07:42→16:06)
[2020-12-23] MEDS: MULTIVITAMINS, THERA 1 EACH TAB PO SCH (07:42)
[2020-12-23] MEDS: lisinopriL 5 MG TAB PO SCH (07:42)
[2020-12-23] MEDS: MAGNESIUM 30 MG PO SCH (07:43)
[2020-12-23] MEDS: SODIUM CHLORIDE 0.9% 1,000 ML IV SCH ×2 (07:43→20:45)
[2020-12-23] MEDS ORDERED: ASPIRIN 325 MG TAB PO SCH (09:00)
--- NOTE | 2020-12-23 11:17 | P.PN ---
Subjective This is a pleasant 70-year-old female past medical history significant for inferior ST elevated myocardial infarction 2018 status post PCI to the RCA with 20% disease of the ostial LAD 10% proximal and 20% mid, 40% disease of the circumflex and 20% disease of the proximal OM. Left main is angiographically normal. She is seen and examined sitting up in the recliner in no acute distress. She has had an episode of chest discomfort this morning described as a burning tight sensation in the left precordial region. It was brief in timing lasting only 10-15 seconds. Blood pressure 156/71 heart rate 65 afebrile maintaining oxygen saturation on room air. Since his hospitalization she denies having any symptoms of palpitations however she states prior to coming in she did feel her heart fluttering in her chest. She does have a loop recorder in place. GENERAL: Well-appearing, well-nourished and in no acute distress. NECK: Supple without JVD or thyromegaly. LUNGS: Breath sounds clear to auscultation bilaterally. Respiration equal and unlabored. No wheezes, rales or rhonchi. HEART: Regular rate and rhythm without murmurs, rubs or gallops. S1 and S2 heard. EXTREMITIES: Normal range of motion, no edema. No clubbing or cyanosis. Peripheral pulses intact. ASSESSMENT Chest pain Blurred vision, neurology following Coronary artery disease status post PCI to the RCA in the setting of an acute inferior wall ST elevated myocardial infarction 2018 Diabetes mellitus Hypertension Dyslipidemia Hypothyroidism PLAN Catheterization films reviewed from 2018. She does have a lesion in the circumflex territory which would correlate with her abnormal stress test. Per the catheterization report this is a small nondominant vessel it would not be amenable to PCI. Initiate imdur 30 mg daily. Interrogate loop recorder to assess for atrial fibrillation given her palpitations and neurological complaints. Nurse Practitioner note has been reviewed, I agree with a documented findings and plan of care. Patient was seen and examined. Objective - Vital Signs Vital signs: Vital Signs Temp 97.9 F 12/23/20 07:35 Pulse 65 12/23/20 07:35 Resp 18 12/23/20 07:35 BP 156/71 12/23/20 07:35 Pulse Ox 99 12/23/20 07:35 Intake & Output 12/22/20 12/23/20 12/23/20 18:59 06:59 18:59 Intake Total 1380 780 Output Total 0 Balance 1380 780 Weight 112 kg Intake: Oral 1380 780 Output: Urine 0 Other: Voiding Method Bedside Commode Bedpan # Voids 1 0 # Bowel Movements 4 - Labs CBC & Chem 7: 12/22/20 16:21 12/22/20 16:21 Labs: Abnormal Lab Results - Last 24 Hours (Table) 12/22/20 12/22/20 12/22/20 Range/Units 05:42 11:50 14:51 Glucose (74-99) mg/dL POC Glucose (mg/dL) 109 H 138 H (75-99) mg/dL Hemoglobin A1c (4.0-6.0) % Calcium 8.0 L (8.7-10.3) mg/dL AST (14-36) U/L ALT 63 H (8-44) U/L Total Protein 5.1 L (6.2-8.2) g/dL Albumin 3.40 L (3.80-4.90) g/dL 12/22/20 12/22/20 12/22/20 Range/Units 16:21 16:21 16:56 Glucose 175 H (74-99) mg/dL POC Glucose (mg/dL) 146 H (75-99) mg/dL Hemoglobin A1c 6.9 H (4.0-6.0) % Calcium (8.7-10.3) mg/dL AST 64 H (14-36) U/L ALT 85 H (8-44) U/L Total Protein 5.9 L (6.2-8.2) g/dL Albumin (3.80-4.90) g/dL 12/22/20 12/23/20 Range/Units 20:06 06:03 Glucose (74-99) mg/dL POC Glucose (mg/dL) 194 H 120 H (75-99) mg/dL Hemoglobin A1c (4.0-6.0) % Calcium (8.7-10.3) mg/dL AST (14-36) U/L ALT (8-44) U/L Total Protein (6.2-8.2) g/dL Albumin (3.80-4.90) g/dL
[2020-12-23] MEDS: LACTULOSE 20 GM/30 ML CUP PO SCH ×3 (11:40→11:42)
[2020-12-23] MEDS: ISOSORBIDE MONONITRATE ER 30 MG TAB.ER.24H PO SCH ×2 (11:41→11:42)
[2020-12-23 11:50] LABS: Glucose,Whole Blood 118 mg/dL (75-99)
--- NOTE | 2020-12-23 13:11 | P.PN ---
Subjective Progress Note Date: 12/23/20 CHIEF COMPLAINT: Left arm tingling and blurred vision HISTORY OF PRESENT ILLNESS: Patient seen and examined with Dr. Lim. Surgical service is following patient regards to her constipation. Yesterday afternoon patient had episode of unresponsiveness and hypotension and a code stroke was activated. Patient is being followed by neurology. She did have a CTA of the head and neck which was negative. Prior to her episode versus unresponsiveness patient did receive lactulose for constipation and she started to have abdominal pain. A computed tomography scan of the abdomen and pelvis was completed ordered by admitting service which did show retained fecal debris within the colon, some stool distends the rectum. Correlate for possible impaction. There is diverticulosis and postop changes. Patient is still complaining of constipation. Cardiology is following regards to chest pain. Neurology is recurrent following in regards to patient's pleuritic vision. They felt that her symptoms were likely related to hypertensive encephalopathy. She is afebrile. WBC 9.9 she's currently on a full liquid diet. Due to the "stroke that was activated patient did not receive all the lactulose and enemas that were ordered. PHYSICAL EXAM: VITAL SIGNS: Reviewed. GENERAL: Well-developed in no acute distress. HEENT: No sclera icterus. Extraocular movements grossly intact. Moist buccal mucosa. Head is atraumatic, normocephalic. ABDOMEN: Soft. Mildly distended Nontender. NEUROLOGIC: Alert and oriented. Cranial nerves II through XII grossly intact. ASSESSMENT: 1. Abdominal pain and bloating likely due to constipation 2. Chronic constipation 3. History of colon polyp 4. Left arm tingling and blurred vision patient to be evaluated by neurology PLAN: -We'll give lactulose 1 every hour 3 doses and subset enema -Recommend colonoscopy outpatient -Recommend full liquid diet for now until patient is having bowel movements -Continue neurology and cardiac workup Physician Splitting Machine Operator note has been reviewed by physician. Signing provider agrees with the documented findings, assessment, and plan of care. Objective - Vital Signs Vital signs: Vital Signs Temp 98 F 12/23/20 12:00 Pulse 69 12/23/20 12:00 Resp 18 12/23/20 12:00 BP 144/72 12/23/20 12:00 Pulse Ox 98 12/23/20 12:00 Intake & Output 12/22/20 12/23/20 12/23/20 18:59 06:59 18:59 Intake Total 1380 780 Output Total 0 Balance 1380 780 Weight 112 kg Intake: Oral 1380 780 Output: Urine 0 Other: Voiding Method Bedside Commode Bedpan # Voids 1 0 # Bowel Movements 4 - Labs CBC & Chem 7: 12/22/20 16:21 12/22/20 16:21 Labs: Abnormal Lab Results - Last 24 Hours (Table) 12/22/20 12/22/20 12/22/20 Range/Units 14:51 16:21 16:21 Glucose 175 H (74-99) mg/dL POC Glucose (mg/dL) 138 H (75-99) mg/dL Hemoglobin A1c 6.9 H (4.0-6.0) % AST 64 H (14-36) U/L ALT 85 H (4-34) U/L Total Protein 5.9 L (6.3-8.2) g/dL 12/22/20 12/22/20 12/23/20 Range/Units 16:56 20:06 06:03 Glucose (74-99) mg/dL POC Glucose (mg/dL) 146 H 194 H 120 H (75-99) mg/dL Hemoglobin A1c (4.0-6.0) % AST (14-36) U/L ALT (4-34) U/L Total Protein (6.3-8.2) g/dL 12/23/20 Range/Units 11:48 Glucose (74-99) mg/dL POC Glucose (mg/dL) 118 H (75-99) mg/dL Hemoglobin A1c (4.0-6.0) % AST (14-36) U/L ALT (4-34) U/L Total Protein (6.3-8.2) g/dL
[2020-12-23] MEDS ORDERED: HYDROcodone/APAP 10-325MG 1 EACH TAB PO PRN (16:30)
[2020-12-23] MEDS ORDERED: METOCLOPRAMIDE 5 MG/ML 2 ML VIAL IVP PRN (16:32)
[2020-12-23] MEDS ORDERED: NA PHOS,M-B/NA PHOS,DI-BA 133 ML ENEMA RECTAL STA (16:34)
[2020-12-23 16:36] LABS: Glucose,Whole Blood 143 mg/dL (75-99)
[2020-12-23] MEDS ORDERED: PEG 3350-NA SULF,BICARB,CL/KCL 4,000 ML BOTTLE PO ONE (17:00)
--- NOTE | 2020-12-23 17:09 | P.PN ---
Subjective Progress Note Date: 12/23/20 Patient concern that she is having abdominal bloating, abdominal distention, constipation. She needs treatment for it. She has not had any further spells from yesterday. She still complains of blurred vision but not very concerning. No loss of vision. Telemetry monitoring only showing sinus rhythm with sinus bradycardia in the 50s. No other arrhythmias. No new focal symptoms. Objective - Vital Signs Vital signs: Vital Signs Temp 98 F 12/23/20 12:00 Pulse 69 12/23/20 12:00 Resp 18 12/23/20 12:00 BP 144/72 12/23/20 12:00 Pulse Ox 98 12/23/20 12:00 Intake & Output 12/22/20 12/23/20 12/23/20 18:59 06:59 18:59 Intake Total 1380 780 240 Output Total 0 400 Balance 1380 780 -160 Weight 112 kg Intake: Oral 1380 780 240 Output: Urine 0 400 Other: Voiding Method Bedside Commode Bedpan # Voids 1 0 # Bowel Movements 4 - Exam Completely nonfocal. Mentation normal. Abdomen definitely appears very protuberant, distended - Labs CBC & Chem 7: 12/22/20 16:21 12/22/20 16:21 Labs: Abnormal Lab Results - Last 24 Hours (Table) 12/22/20 12/22/20 12/23/20 Range/Units 16:21 20:06 06:03 POC Glucose (mg/dL) 194 H 120 H (75-99) mg/dL Hemoglobin A1c 6.9 H (4.0-6.0) % 12/23/20 12/23/20 Range/Units 11:48 16:31 POC Glucose (mg/dL) 118 H 143 H (75-99) mg/dL Hemoglobin A1c (4.0-6.0) % Assessment and Plan Assessment: * Recurrent episodes of palpitations, with blurred vision, generalized weakness, that lasts for an hour, unclear etiology. Patient's blood pressure does go higher with these episodes, therefore hypertensive encephalopathy is a possibility. No evidence of vertebrobasilar insufficiency noted on CTA of head and neck. Her current neurological examination is normal. NIH stroke scale 0. Patient appears very comfortable, smiling despite having recent spell. Therefore panic disorder also in the differential. * Hypertension * Diabetes * Coronary artery disease, history of [place] * Obesity * Rheumatoid arthritis Plan: * Continue 325 mg daily. At this time I do not believe these episodes actually represent obvious TIA, as there are no lateralizing features. Therefore no indication for dual antiplatelet medication. * Optimize control of blood pressure, to target blood pressure <130/80. * Aggressive control of all vascular factors. * Hemoglobin A1c is 6.9, slightly worse than previous 6.5 on 10/06/2019. Dietary modification, healthy lifestyles. * Fasting lipid panel shows cholesterol 138, LDL 38, HDL 67 and triglycerides 162. Continue statins. * Medical management for constipation and abdominal distention as per IM.
[2020-12-23] MEDS ORDERED: METOCLOPRAMIDE 5 MG/ML 2 ML VIAL IVP SCH (18:00)
[2020-12-23 20:03] LABS: Glucose,Whole Blood 129 mg/dL (75-99)
[2020-12-24] MEDS: HEPARIN SODIUM,PORCINE 5,000 UNIT/ML 1 ML VIAL SQ SCH ×4 (02:30→23:17)
[2020-12-24] MEDS: GABAPENTIN 300 MG CAP PO SCH ×4 (02:30→23:17)
[2020-12-24 06:05] LABS: Glucose,Whole Blood 111 mg/dL (75-99)
[2020-12-24] MEDS: INSULIN ASPART (NovoLOG) 100 UNIT/ML VIAL SQ SCH ×4 (06:08→21:13)
[2020-12-24] MEDS: LEVOTHYROXINE 88 MCG TAB PO SCH (06:17)
[2020-12-24] MEDS: carvediloL 6.25 MG TAB PO SCH (06:17)
[2020-12-24] MEDS: PANTOPRAZOLE 40 MG TABLET PO SCH (09:13)
[2020-12-24] MEDS: TAMSULOSIN 0.4 MG CAP.ER.24H PO SCH (09:13)
[2020-12-24] MEDS: DOXAZOSIN 4 MG TAB PO SCH (09:14)
[2020-12-24] MEDS: predniSONE 10 MG TAB PO SCH (09:14)
[2020-12-24] MEDS: ISOSORBIDE MONONITRATE ER 30 MG TAB.ER.24H PO SCH (09:14)
[2020-12-24] MEDS: ASPIRIN 81 MG PO SCH (09:14)
[2020-12-24] MEDS: MULTIVITAMINS, THERA 1 EACH TAB PO SCH (09:14)
[2020-12-24] MEDS: ATORVASTATIN 40 MG TAB PO SCH (09:14)
[2020-12-24] MEDS: lisinopriL 5 MG TAB PO SCH (09:14)
[2020-12-24] MEDS: MAGNESIUM 30 MG PO SCH (09:15)
[2020-12-24] MEDS: EZETIMIBE 10 MG TAB PO SCH (09:17)
[2020-12-24] MEDS: AMOXICILLIN 500 MG CAP PO SCH ×2 (09:18→19:53)
[2020-12-24] MEDS: amLODIPine 5 MG TAB PO SCH (09:23)
--- NOTE | 2020-12-24 09:53 | P.PN ---
Subjective This is a pleasant 70-year-old female past medical history significant for inferior ST elevated myocardial infarction 2018 status post PCI to the RCA with 20% disease of the ostial LAD 10% proximal and 20% mid, 40% disease of the circumflex and 20% disease of the proximal OM. Left main is angiographically normal. She is seen and examined sitting up on the edge of the bed in no acute distress. She states she has had no further symptoms of burning in the left precordial region. Blood pressure 134/70 heart rate 76 afebrile maintaining oxygen saturation on room air. She is scheduled to undergo EGD colonoscopy this morning. GENERAL: Well-appearing, well-nourished and in no acute distress. NECK: Supple without JVD or thyromegaly. LUNGS: Breath sounds clear to auscultation bilaterally. Respiration equal and unlabored. No wheezes, rales or rhonchi. HEART: Regular rate and rhythm without murmurs, rubs or gallops. S1 and S2 hea rd. EXTREMITIES: Normal range of motion, no edema. No clubbing or cyanosis. Peripheral pulses intact. ASSESSMENT Chest pain Blurred vision, neurology following Coronary artery disease status post PCI to the RCA in the setting of an acute inferior wall ST elevated myocardial infarction 2018 Diabetes mellitus Hypertension Dyslipidemia Hypothyroidism PLAN Awaiting loop recorder interrogation. Clinically stable from a cardiac perspective on current medical regimen. She can be discharged home and follow up with Dr. Zepeda in the office and he can follow up on the loop recorder interrogation at that time. Nurse Practitioner note has been reviewed, I agree with a documented findings and plan of care. Patient was seen and examined. Objective - Vital Signs Vital signs: Vital Signs Temp 97.4 F L 12/24/20 04:00 Pulse 76 12/24/20 04:00 Resp 18 12/24/20 04:00 BP 134/70 12/24/20 04:00 Pulse Ox 96 12/24/20 04:00 Intake & Output 12/23/20 12/24/20 12/24/20 18:59 06:59 18:59 Intake Total 720 Output Total 1550 3300 Balance -830 -3300 Weight 113.1 kg Intake: Oral 720 Output: Urine 1550 3300 Uretheral (Steiner) 600 Other: Voiding Method Bedside Commode # Voids 1 # Bowel Movements 2 - Labs CBC & Chem 7: 12/22/20 16:21 12/22/20 16:21 Labs: Abnormal Lab Results - Last 24 Hours (Table) 12/23/20 12/23/20 12/23/20 Range/Units 11:48 16:31 20:02 POC Glucose (mg/dL) 118 H 143 H 129 H (75-99) mg/dL 12/24/20 Range/Units 06:02 POC Glucose (mg/dL) 111 H (75-99) mg/dL
[2020-12-24] MEDS ORDERED: PROPOFOL 10 MG/ML 20 ML VIAL IV ONE (12:04)
[2020-12-24] MEDS ORDERED: LACTATED RINGERS 1,000 ML IV ONE (12:05)
--- NOTE | 2020-12-24 12:22 | P.OP ---
Date of Procedure: 12/24/20 Preoperative Diagnosis: Epigastric pain Diverticulitis Constipation Postoperative Diagnosis: Antral gastritis Diverticulosis Colitis Procedure(s) Performed: EGD Colonoscopy Anesthesia: MAC Surgeon: Dillon Lim Pathology: other (Antrum) Condition: stable Disposition: PACU Description of Procedure: Patient's placed on the endoscopy table in the lateral position. She received IV sedation. The gastricoropharynx passed in the esophagus and into the stomach. Scope was then placed through the pylorus. The first and second portion of duodenum appeared normal. Scope was then brought back the antrum this was mildly inflamed. A biopsies performed. The scope was then retroflexed and remainder of the stomach appeared normal. There was no significant hiatal hernia. The GE junction was at 40 cm. The distal esophagus appeared normal. The proximal esophagus appeared normal. Scope was withdrawn for patient. Next digital rectal exam was performed which revealed no abnormalities. Flexible colonoscope was then placed patient anus passed throughout the entire colon. The ileocecal valve was visualized. Cecum and ascending colon appeared normal. In the transverse colon appeared evidence of colitis. This area is biopsied the proximal and distal transverse colon. The inflamed. He is improved in the proximal left colon. There was diverticular changes of left colon sigmoid colon. Scope was then brought back the rectum this appeared normal. Scope was withdrawn for patient.
[2020-12-24 17:05] LABS: Glucose,Whole Blood 122 mg/dL (75-99)
[2020-12-24] MEDS: SODIUM CHLORIDE 0.9% 1,000 ML IV SCH (18:01)
--- NOTE | 2020-12-24 18:55 | PN ---
PROGRESS NOTE White female had a colonoscopy that showed some transverse colon colitis. EGD showed some mild gastritis. She was started on Reglan for gastroparesis. Continues on constipation medications. Cardiology saw her, added Imdur 30 mg daily, and she is stabilized, possibly discharge home tomorrow. She is 95% on room air, pulse is 74, respiratory rate 12-16, temperature 97.4, blood pressure 140s over 60s. CARDIOVASCULAR: S1, S2. ABDOMEN: Distended, obese. Normal bowel sounds. HEMATOLOGY: Negative Homans. LUNGS: Clear. ASSESSMENT: 1. Orthostatic hypotension. 2. Hypertension acceleration. 3. Encephalopathy. 4. Chronic constipation. 5. Transverse colitis. Biopsies are pending. EGD antral gastritis. Continue current treatment. Follow up in next 24 to 48 hours for possible discharge. MMODL / IJN: [id number] /
[2020-12-24 21:06] LABS: Glucose,Whole Blood 134 mg/dL (75-99)
[2020-12-25] MEDS: SODIUM CHLORIDE 0.9% 1,000 ML IV SCH (04:12)
[2020-12-25 06:23] LABS: Glucose,Whole Blood 93 mg/dL (75-99)
[2020-12-25] MEDS: INSULIN ASPART (NovoLOG) 100 UNIT/ML VIAL SQ SCH ×2 (06:42→13:16)
[2020-12-25] MEDS: LEVOTHYROXINE 88 MCG TAB PO SCH (06:43)
[2020-12-25] MEDS: carvediloL 6.25 MG TAB PO SCH (06:43)
[2020-12-25] MEDS: EZETIMIBE 10 MG TAB PO SCH (09:01)
[2020-12-25] MEDS: MULTIVITAMINS, THERA 1 EACH TAB PO SCH (09:01)
[2020-12-25] MEDS: ATORVASTATIN 40 MG TAB PO SCH (09:01)
[2020-12-25] MEDS: amLODIPine 5 MG TAB PO SCH (09:01)
[2020-12-25] MEDS: ASPIRIN 81 MG PO SCH (09:01)
[2020-12-25] MEDS: predniSONE 10 MG TAB PO SCH (09:02)
[2020-12-25] MEDS: HEPARIN SODIUM,PORCINE 5,000 UNIT/ML 1 ML VIAL SQ SCH (09:02)
[2020-12-25] MEDS: PANTOPRAZOLE 40 MG TABLET PO SCH (09:02)
[2020-12-25] MEDS: GABAPENTIN 300 MG CAP PO SCH (09:02)
[2020-12-25] MEDS: ISOSORBIDE MONONITRATE ER 30 MG TAB.ER.24H PO SCH (09:02)
[2020-12-25] MEDS: TAMSULOSIN 0.4 MG CAP.ER.24H PO SCH (09:02)
[2020-12-25] MEDS: lisinopriL 5 MG TAB PO SCH (09:02)
[2020-12-25] MEDS: DOXAZOSIN 4 MG TAB PO SCH (09:02)
[2020-12-25] MEDS: AMOXICILLIN 500 MG CAP PO SCH (09:02)
[2020-12-25 09:25] VITALS: TEMP 97.6
--- NOTE | 2020-12-25 11:39 | P.PN ---
Subjective This is a pleasant 70-year-old female past medical history significant for inferior ST elevated myocardial infarction 2018 status post PCI to the RCA with 20% disease of the ostial LAD 10% proximal and 20% mid, 40% disease of the circumflex and 20% disease of the proximal OM. Left main is angiographically normal. She is seen and examined sitting up in the recliner in no acute distress. She has had no further symptoms of burning in the chest. She also states she has noticed she has had no tingling in her left hand. She underwent EGD colonoscopy yesterday revealing gastritis, colitis and diverticulosis. Blood pressure 119/61 heart rate 68 afebrile maintaining oxygen saturation on room air. Loop recorder interrogation was unremarkable. The patient has had no significant events or arrhythmias. GENERAL: Well-appearing, well-nourished and in no acute distress. NECK: Supple without JVD or thyromegaly. LUNGS: Breath sounds clear to auscultation bilaterally. Respiration equal and unlabored. No wheezes, rales or rhonchi. HEART: Regular rate and rhythm without murmurs, rubs or gallops. S1 and S2 heard. EXTREMITIES: Normal range of motion, no edema. No clubbing or cyanosis. Peripheral pulses intact. ASSESSMENT Chest pain Blurred vision, neurology following Coronary artery disease status post PCI to the RCA in the setting of an acute inferior wall ST elevated myocardial infarction 2018 Diabetes mellitus Hypertension Dyslipidemia Hypothyroidism PLAN Stable from a cardiac perspective. We will follow along as needed, follow-up in the office with Dr. Zepeda upon discharge. Nurse Practitioner note has been reviewed, I agree with a documented findings and plan of care. Patient was seen and examined. Objective - Vital Signs Vital signs: Vital Signs Temp 97.6 F 12/25/20 08:10 Pulse 68 12/25/20 08:10 Resp 18 12/25/20 08:10 BP 119/61 12/25/20 08:10 Pulse Ox 95 12/25/20 08:10 Intake & Output 12/24/20 12/25/20 12/25/20 18:59 06:59 18:59 Intake Total 940 240 Output Total 750 1600 Balance 190 -1600 240 Weight 112.6 kg Intake: IV 200 Oral 740 240 Output: Urine 750 1600 Other: Voiding Method Indwelling Catheter Indwelling Catheter Indwelling Catheter # Voids 1 - Labs CBC & Chem 7: 12/22/20 16:21 12/22/20 16:21 Labs: Abnormal Lab Results - Last 24 Hours (Table) 12/24/20 12/24/20 Range/Units 17:03 21:04 POC Glucose (mg/dL) 122 H 134 H (75-99) mg/dL
[2020-12-25] MEDS ORDERED: metroNIDAZOLE 500 MG TAB PO SCH (12:00)
[2020-12-25 12:03] LABS: Glucose,Whole Blood 105 mg/dL (75-99)
[2020-12-25] MEDS: MAGNESIUM 30 MG PO SCH (12:04)
--- NOTE | 2020-12-25 13:15 | P.PN ---
Subjective Progress Note Date: 12/25/20 CHIEF COMPLAINT: Left arm tingling and blurred vision HISTORY OF PRESENT ILLNESS: Patient seen and examined with Dr. Lim. Surgical service is following patient regards to her constipation. Patient is status post EGD and colonoscopy which revealed antral gastritis, diverticulosis and colitis of the transverse colon. Patient reports improvement in her abdominal pain and distention. She is having bowel movements and passing gas. She denies any nausea vomiting she's tolerating diet. Afebrile. PHYSICAL EXAM: VITAL SIGNS: Reviewed. GENERAL: Well-developed in no acute distress. HEENT: No sclera icterus. Extraocular movements grossly intact. Moist buccal mucosa. Head is atraumatic, normocephalic. ABDOMEN: Soft. Mildly distended Nontender. NEUROLOGIC: Alert and oriented. Cranial nerves II through XII grossly intact. ASSESSMENT: 1. Abdominal pain likely secondary to patient's colitis of the transverse colon 2. Chronic constipation 3. History of colon polyp 4. Left arm tingling and blurred vision patient to be evaluated by neurology PLAN: -Add Flagyl for patient's colitis -Continue PPI -Patient is stable from surgical standpoint for discharge. Patient to follow up with Dr. Lim in 1 week. Physician Grommet Machine Operator note has been reviewed by physician. Signing provider agrees with the documented findings, assessment, and plan of care. Objective - Vital Signs Vital signs: Vital Signs Temp 97.6 F 12/25/20 08:10 Pulse 68 12/25/20 08:10 Resp 18 12/25/20 08:10 BP 119/61 12/25/20 08:10 Pulse Ox 95 12/25/20 08:10 Intake & Output 12/24/20 12/25/20 12/25/20 18:59 06:59 18:59 Intake Total 940 240 Output Total 750 1600 Balance 190 -1600 240 Weight 112.6 kg Intake: IV 200 Oral 740 240 Output: Urine 750 1600 Other: Voiding Method Indwelling Catheter Indwelling Catheter Indwelling Catheter # Voids 1 - Labs CBC & Chem 7: 12/22/20 16:21 12/22/20 16:21 Labs: Abnormal Lab Results - Last 24 Hours (Table) 12/24/20 12/24/20 12/25/20 Range/Units 17:03 21:04 12:01 POC Glucose (mg/dL) 122 H 134 H 105 H (75-99) mg/dL
[2020-12-25 14:08] VITALS: BP 118/56; PULSE 58; RESP 17
[2020-12-25] MEDS ORDERED: METOCLOPRAMIDE 5 MG TAB PO SCH (17:30)
--- NOTE | 2020-12-25 21:19 | P.PN ---
Subjective Progress Note Date: 12/24/20 Patient was seen for a follow-up. Patient's was also present. Patient states that she is diagnosed with infection of the lower and upper GI region. Antibiotics have been started. No new focal symptoms. No syncopal spells. Telemetry monitoring only showing sinus rhythm. No other arrhythmias. Objective - Vital Signs Vital signs: Vital Signs Temp 97.5 F L 12/24/20 16:00 Pulse 70 12/24/20 16:00 Resp 18 12/24/20 16:00 BP 128/69 12/24/20 16:00 Pulse Ox 95 12/24/20 16:00 Intake & Output 12/23/20 12/24/20 12/24/20 18:59 06:59 18:59 Intake Total 720 940 Output Total 1550 3300 750 Balance -830 -3300 190 Weight 113.1 kg Intake: IV 200 Oral 720 740 Output: Urine 1550 3300 750 Uretheral (Steiner) 600 Other: Voiding Method Bedside Commode Indwelling Catheter # Voids 1 # Bowel Movements 2 - Exam Completely nonfocal. Mentation normal. Abdomen definitely appears very protuberant, distended. - Labs CBC & Chem 7: 12/22/20 16:21 12/22/20 16:21 Labs: Abnormal Lab Results - Last 24 Hours (Table) 12/23/20 12/24/20 12/24/20 Range/Units 20:02 06:02 17:03 POC Glucose (mg/dL) 129 H 111 H 122 H (75-99) mg/dL Assessment and Plan Assessment: * Recurrent episodes of palpitations, with blurred vision, generalized weakness, that lasts for an hour, unclear etiology. Patient's blood pressure does go higher with these episodes, therefore hypertensive encephalopathy is a po ssibility. No evidence of vertebrobasilar insufficiency noted on CTA of head and neck. Her current neurological examination is normal. NIH stroke scale 0. Patient appears very comfortable, smiling despite having recent spell. Therefore panic disorder also in the differential. * Hypertension * Diabetes * Coronary artery disease, history of [place] * Obesity * Rheumatoid arthritis Plan: * Continue 325 mg daily. At this time I do not believe these episodes actually represent obvious TIA, as there are no lateralizing features. Therefore no indication for dual antiplatelet medication. * Optimize control of blood pressure, to target blood pressure <130/80. * Aggressive control of all vascular factors. * Hemoglobin A1c is 6.9, slightly worse than previous 6.5 on 10/06/2019. D ietary modification, healthy lifestyles. * Fasting lipid panel shows cholesterol 138, LDL 38, HDL 67 and triglycerides 162. Continue statins. * Medical management for constipation and abdominal distention as per IM. * Neurologically clear for discharge. We will sign off.
== END 2020-12-25 16:24 | disposition home or self-care (01) | DRG 392 ==
LOC: 6NMEDSUR 13:46 → 3SCARD 12-22 15:45 → OBSVTOIN 12-23 15:22 → 3SCARD 12-23 17:19
PROVIDERS: ADMIT Family Medicine; ATTEND Family Medicine
PROC: 0DJ08ZZ Inspection of Upper Intestinal Tract, Via Natural or Artificial Opening Endoscopic (ICD-10-PCS; principal; 2020-12-24 07:30)
PROC: 0DJD8ZZ Inspection of Lower Intestinal Tract, Via Natural or Artificial Opening Endoscopic (ICD-10-PCS; 2020-12-24 07:30)
DX: K52.9 Noninfective gastroenteritis and colitis, unspecified (principal); I67.4 Hypertensive encephalopathy; K57.92 Diverticulitis of intestine, part unspecified, without perforation or abscess without bleeding; K29.70 Gastritis, unspecified, without bleeding; I10 Essential (primary) hypertension; E11.9 Type 2 diabetes mellitus without complications; Z79.4 Long term (current) use of insulin; K21.9 Gastro-esophageal reflux disease without esophagitis; E78.5 Hyperlipidemia, unspecified; I25.10 Atherosclerotic heart disease of native coronary artery without angina pectoris; Z95.5 Presence of coronary angioplasty implant and graft; I25.2 Old myocardial infarction; M19.90 Unspecified osteoarthritis, unspecified site; M06.9 Rheumatoid arthritis, unspecified; G47.30 Sleep apnea, unspecified; Z90.49 Acquired absence of other specified parts of digestive tract; Z90.710 Acquired absence of both cervix and uterus; R07.89 Other chest pain; K59.09 Other constipation; Z86.010 Personal history of colon polyps; H26.9 Unspecified cataract; E11.40 Type 2 diabetes mellitus with diabetic neuropathy, unspecified; E03.9 Hypothyroidism, unspecified; I48.91 Unspecified atrial fibrillation; Z79.01 Long term (current) use of anticoagulants; E11.43 Type 2 diabetes mellitus with diabetic autonomic (poly)neuropathy; K31.84 Gastroparesis; I95.1 Orthostatic hypotension
CPT/HCPCS: 43239; 45380; 70450; 70496; 70498; 71046; 74176; 80053; 81001; 83036; 83735; 83880; 84484; 85025; 85027; 85379; 88305; 94760

== ENCOUNTER 2021-01-02 18:27 | Inpatient (IN) | payer MEDICARE ==
--- NOTE | 2021-01-02 18:48 | ED ---
General Adult HPI - General Chief complaint: Neuro Symptoms/Deficit Stated complaint: TIA Time Seen by Provider: 01/02/21 18:29 Source: patient, EMS, old records reviewed Mode of arrival: EMS Limitations: no limitations - History of Present Illness Initial comments: Patient was transferred to our ED from the [facility] ED for admission. Per phone report from [facility] ED physician, the patient was being admitted to their hospital for TIA symptoms and elevated blood pressure when she requested to be transferred to our hospital for admission given that she was just admitted here a week ago for similar symptoms. Per ED physician, the patient's labwork, Covid test and imaging studies were negative. Patient reports that she had slurred speech and an elevated blood pressure reading at about 9 AM this morning. Patient states that her slurred speech resolved after being transferred by ambulance to the [facility] ED and being given medications for her elevated blood pressure. Patient states that she has also felt generally weak today. Patient states that she had a headache and blurry vision as well earlier today. Patient denies having any pain or symptoms currently. Patient states that she took 4 baby aspirin this morning. Patient denies trauma or injury, sudden onset of headache, LOC, focal numbness or weakness, neck pain or stiffness, fever or chills, chest pain, dyspnea, palpitations, dizziness, abdominal pain, nausea/vomiting/diarrhea, or any other symptoms or complaints. - Related Data Home Medications Medication Instructions Recorded Confirmed Multivitamins, Thera [Multivitamin 1 tab PO DAILY 10/12/16 12/21/20 (formulary)] Pantoprazole [Protonix] 40 mg PO DAILY 10/05/19 12/21/20 carvediloL [Coreg] 6.25 mg PO DAILY 10/06/19 12/21/20 Doxazosin [Cardura] 4 mg PO DAILY 02/18/20 12/21/20 Ezetimibe [Zetia] 10 mg PO DAILY 02/18/20 12/21/20 Gabapentin [Neurontin] 300 mg PO Q8H 02/18/20 12/21/20 Magnesium 30mg 1 tab PO DAILY 02/18/20 12/21/20 Nitroglycerin Sl Tabs [Nitrostat] 0.4 mg SUBLINGUAL Q5M PRN 02/18/20 12/21/20 metFORMIN HCL 500 mg PO DAILY 02/18/20 12/21/20 Levothyroxine Sodium [Synthroid] 88 mcg PO DAILY 11/26/20 12/21/20 amLODIPine BESYLATE 5 mg PO DAILY 11/26/20 12/21/20 Amoxicillin 500 mg PO Q12H 12/21/20 12/21/20 Krill/Om-3/Dha/Epa/Phospho/Ast 1 tab PO DAILY 12/21/20 12/21/20 [Megared Flomaton-3 Krill 350 mg] lisinopriL [Zestril] 5 mg PO DAILY 12/21/20 12/21/20 predniSONE 10 mg PO DAILY 12/21/20 12/21/20 Previous Rx's Medication Instructions Recorded Aspirin 81 mg PO DAILY chew 11/28/16 Atorvastatin [Lipitor] 40 mg PO DAILY 90 Days #90 tab 12/25/20 Isosorbide Mononitrate ER [Imdur] 30 mg PO DAILY 90 Days #90 12/25/20 tab.er.24h Metoclopramide [Reglan] 5 mg PO ACHS 30 Days #120 tab 12/25/20 Tamsulosin [Flomax] 0.4 mg PO PC-BRKFST 90 Days #90 12/25/20 cap.er.24h metroNIDAZOLE [Flagyl] 500 mg PO TID #21 tab 12/25/20 Allergies Allergy/AdvReac Type Severity Reaction Status Date / Time No Known Allergies Allergy Verified 12/21/20 17:02 Review of Systems ROS Statement: Those systems with pertinent positive or pertinent negative responses have been documented in the HPI. ROS Other: All systems not noted in ROS Statement are negative. Past Medical History Past Medical History: Diabetes Mellitus, GERD/Reflux, Hyperlipidemia, Hypertension, Myocardial Infarction (AR), Osteoarthritis (OA), Rheumatoid Arthritis (RA), Sleep Apnea/CPAP/BIPAP Additional Past Medical History / Comment(s): HX Kidney Stones. DIVERTICULITIS . BLOOD PRESSURE FLUCTUATES, LOOP recorder over a year ago. NARROWING OF SPINE W/ DISC PROB. USES C-PAP Last Myocardial Infarction Date:: 06/28/18 History of Any Multi-Drug Resistant Organisms: None Reported Past Surgical History: Cholecystectomy, Heart Catheterization With Stent, Hysterectomy Additional Past Surgical History / Comment(s): Lithotripsy, basket retrieval of kidney stones, COLONOSCOPY, loop recorder Past Anesthesia/Blood Transfusion Reactions: No Reported Reaction Additional Past Anesthesia/Blood Transfusion Reaction / Comment(s): BLOOD TRANSUFSION WHEN HAVING HER CHILDREN-NO REACTIONS TO BLOOD. Date of Last Stent Placement:: 06/28/18 Past Psychological History: No Psychological Hx Reported Smoking Status: Former smoker Past Alcohol Use History: None Reported Past Drug Use History: None Reported - Past Family History Mother Family Medical History: Cancer Additional Family Medical History / Comment(s): HAD LYMPHOMA THEN 15 YEARS LATER HAD SMALL CELL CA(TOMACH) Father Family Medical History: Myocardial Infarction (AR) Additional Family Medical History / Comment(s): PT WAS 9 YEARS OLD WHEN HER FATHER FROM MASSIVE AR. Brother(s) Family Medical History: Coronary Artery Disease (CAD), Myocardial Infarction (AR) Additional Family Medical History / Comment(s): Pt had a 42 yrs old brother of a massive AR and another brother who had CABG at the age of 39yrs. Sister(s) Family Medical History: Cancer General Exam Limitations: no limitations General appearance: alert, in no apparent distress Head exam: Present: atraumatic, normocephalic Eye exam: Present: normal appearance, PERRL, EOMI ENT exam: Present: mucous membranes moist Neck exam: Present: other (Trachea is in midline). Absent: tenderness, meningismus Respiratory exam: Present: normal lung sounds bilaterally. Absent: respiratory distress, wheezes, rales, rhonchi, stridor Cardiovascular Exam: Present: regular rate, normal rhythm, normal heart sounds, other (Normal radial pulses bilaterally) GI/Abdominal exam: Present: soft. Absent: distended, tenderness, guarding Extremities exam: Present: full ROM. Absent: tenderness, pedal edema Neurological exam: Present: alert, oriented X3, CN II-XII intact. Absent: motor sensory deficit Psychiatric exam: Present: normal affect, normal mood Skin exam: Present: warm, dry, intact, normal color Course Vital Signs 01/02/21 18:38 Temperature 98.4 F Pulse Rate 79 Respiratory 16 Rate Blood Pressure 177/84 O2 Sat by Pulse 95 Oximetry - Reevaluation(s) Reevaluation #1: 01/02/21 18:54 Dr. Nakul Aburto is currently in the emergency department and has seen/examined the patient himself. He is aware of the patient's outside hospital test results. He accepts hospital admission. He recommends neurology and cardiology consultations. He has no further recommendations at this time. EKG Findings - EKG Comments: EKG Findings:: Normal sinus rhythm, occasional PVCs, ventricular rate of 75 bpm, normal MD and QRS intervals, normal QT interval, leftward axis, no ST or T-wave abnormality Medical Decision Making - Medical Decision Making Patient's records from [facility] were reviewed myself. Patient's labs are fairly unremarkable. Patient's chest x-ray and noncontrast head CT showed no acute abnormality. Will admit the patient to the hospital for observation, blood pressure management and TIA workup. Dr. Nakul Aburto has accepted hospital admission. Disposition Clinical Impression: Hypertension Narrative: Possible TIA Disposition: ADMITTED IP TO THIS HOSP Condition: Stable Is patient prescribed a controlled substance at d/c from ED?: No Referrals: Nakul Aburto MD [Primary Care Provider] - 1-2 days Time of Disposition: 19:01
[2021-01-02 20:02] LABS: Glucose,Whole Blood 112 mg/dL (75-99)
[2021-01-02] MEDS ORDERED: NITROGLYCERIN SL TABS 0.4 MG TAB SUBLINGUAL PRN (21:06)
[2021-01-02] MEDS: ACETAMINOPHEN TAB 325 MG TAB PO PRN (21:29)
[2021-01-02] MEDS: GABAPENTIN 300 MG CAP PO SCH (21:29)
[2021-01-02 22:21] LABS: Appearance,Urine Clear (Clear); Bilirubin,Urine Negative (Negative); Blood,Urine Negative (Negative); Color,Urine Yellow; Glucose,Urine (UA) Negative (Negative); Ketones,Urine Negative (Negative); Leukocyte Esterase,Urine Moderate (Negative); Mucus,Urine Rare /hpf; Nitrite,Urine Negative (Negative); Protein,Urine Negative (Negative); Specific Gravity,Urine 1.028 (1.001-1.035); Squamous Epithelial Cell,Urine 1 /hpf (0-4); Urobilinogen,Urine <2.0 mg/dL (<2.0); WBC,Urine 9 /hpf (0-5)
[2021-01-03] MEDS: GABAPENTIN 300 MG CAP PO SCH ×3 (05:15→21:00)
[2021-01-03] MEDS: ACETAMINOPHEN TAB 325 MG TAB PO PRN ×3 (05:17→22:04)
[2021-01-03] MEDS ORDERED: carvediloL 6.25 MG TAB PO SCH (07:30)
[2021-01-03] MEDS: ISOSORBIDE MONONITRATE ER 30 MG TAB.ER.24H PO SCH (08:54)
[2021-01-03] MEDS: amLODIPine 5 MG TAB PO SCH (08:54)
[2021-01-03] MEDS: PANTOPRAZOLE 40 MG TABLET PO SCH (08:55)
[2021-01-03] MEDS: EZETIMIBE 10 MG TAB PO SCH (08:55)
[2021-01-03] MEDS: DOXAZOSIN 4 MG TAB PO SCH (08:55)
[2021-01-03] MEDS: predniSONE 10 MG TAB PO SCH (08:55)
[2021-01-03] MEDS: TAMSULOSIN 0.4 MG CAP.ER.24H PO SCH (08:55)
[2021-01-03] MEDS: LEVOTHYROXINE 88 MCG TAB PO SCH (08:55)
[2021-01-03] MEDS: LOSARTAN 25 MG TAB PO SCH (08:55)
[2021-01-03] MEDS: METOCLOPRAMIDE 5 MG TAB PO SCH ×4 (08:55→20:58)
[2021-01-03] MEDS: ASPIRIN 81 MG PO SCH (08:55)
[2021-01-03] MEDS ORDERED: PHOSPHO PO SCH (09:00)
[2021-01-03] MEDS ORDERED: [UNRECOGNIZED DRUG - OTHER] PO SCH (09:00)
[2021-01-03] MEDS ORDERED: ATORVASTATIN 40 MG TAB PO SCH (09:00)
[2021-01-03] MEDS ORDERED: metFORMIN 500 MG TAB PO SCH (09:00)
[2021-01-03] MEDS ORDERED: AST PO SCH (09:00)
[2021-01-03] MEDS ORDERED: DHA PO SCH (09:00)
[2021-01-03] MEDS ORDERED: EPA PO SCH (09:00)
[2021-01-03] MEDS ORDERED: MAGNESIUM 30 MG PO SCH (09:00)
[2021-01-03] MEDS ORDERED: KRILL PO SCH (09:00)
[2021-01-03 09:04] LABS: Basophils # (A) 0.03 X 10*3/uL (0.00-0.10); Basophils % (A) 0.5 %; Eosinophils # (A) 0.06 X 10*3/uL (0.04-0.35); Eosinophils % (A) 0.9 %; HCT 38.6 % (37.2-46.3); HGB 12.4 g/dL (12.0-15.0); Lymphocytes # (A) 2.08 X 10*3/uL (0.90-5.00); Lymphocytes % (A) 31.8 %; MCH 29.6 pg (27.0-32.0); MCHC 32.1 g/dL (32.0-37.0); MCV 92.1 fL (80.0-97.0); Mean Platelet Volume 11.2 fL (9.5-12.2); Monocytes # (A) 0.45 X 10*3/uL (0.20-1.00); Monocytes % (A) 6.9 %; Neutrophils # (A) 3.89 X 10*3/uL (1.80-7.70); Neutrophils % (A) 59.4 %; Platelet Count 166 X 10*3/uL (140-440); RBC 4.19 X 10*6/uL (4.10-5.20); RDW 14.9 % (11.5-14.5); WBC 6.54 X 10*3/uL (4.50-10.00)
[2021-01-03 10:03] LABS: African American GFR (CKD) 112.1 (60.0-200.0); Albumin 3.9 g/dL (3.80-4.90); Albumin/Globulin Ratio 2.6 (1.60-3.17); Calcium 8.2 mg/dL (8.7-10.3); Globulin 1.5 g/dL (1.6-3.3); Non-African American GFR(CKD) 96.7 (60.0-200.0); Potassium 3.5 mmol/L (3.5-5.5); Total Protein 5.4 g/dL (6.2-8.2)
[2021-01-03] MEDS ORDERED: ATORVASTATIN 80 MG TAB PO STA (10:45)
[2021-01-03] MEDS ORDERED: CLOPIDOGREL 75 MG TAB PO STA (10:47)
--- NOTE | 2021-01-03 11:12 | P.CNNES ---
History of Present Illness Consult date: 01/03/21 Requesting physician: Donta Bearden Reason for Consult: slurred speech History of Present Illness: This is a 70-year-old woman with medical history of uncontrolled hypertension for past two years (keep on fluctuating), hyperlipidemia, sleep apnea on CPAP, coronary artery disease status post stent, diabetes mellitus that was transferred from [facility] ED to our facility visual disturbance, slurring speech concern for possible TIA symptoms and uncontrolled hypertension. Patient stated that since this past Monday night she was having generalized weakness blurry vision and the she checked her blood pressure and it was 220/110 she also noticed that she was having left-sided weakness as well as numbness blurry vision at that time. She stated that the her blood pressure has been fluctuating for last year and years and 8 it continues to be elevated even though she is compliant taking her blood pressure medication. She stated that the she is on aspirin 81 mg and Lipitor 40 mg. She said that she had a similar presentation on 12/22/2020. Patient took 4 baby aspirin as a result of her symptoms on 01/02/2021. She said that she had history of TIAs in the past and the she had the weakness on the left side. Patient was evaluated in the past by Dr. Bruce (Neuro-Hospitalist) and was consulted last on 12/22/2020 for dizziness and blurred vision with fluctuating blood pressure. Workup was done and he felt that recurrent episode of palpitation with blurred vision and generalized weakness is unclear etiology and he felt possibly it's the due to be due to hypertensive encephalopathy also he felt possibly the differential as panic disorder. He didn't feel these episodes represent obvious TIA. He recommended increasing the aspirin to 325 mg daily and to continue statin. The CTA of the head and neck on 12/22/2020 is reported as no significant abnormality is seen within the vasculature. On presentation to our hospital: Her initial vital signs blood pressure of 177/84, heart rate of 79, respiratory of 16, temperature of 98.4 Fahrenheit oral and pulse ox of 95% room air White blood cells 6.54 which is normal. Her POC glucose is 112. Urinalysis seems leukocyte esterase was moderate, urine white blood cell is 9. Review of Systems Review of system: The 12 point system was reviewed and apparent positive and negative per HPI. Past Medical History Past Medical History: Diabetes Mellitus, GERD/Reflux, Hyperlipidemia, Hypertension, Myocardial Infarction (NM), Osteoarthritis (OA), Rheumatoid Arthr itis (RA), Sleep Apnea/CPAP/BIPAP Additional Past Medical History / Comment(s): HX Kidney Stones. DIVERTICULITIS . BLOOD PRESSURE FLUCTUATES, LOOP recorder over a year ago. NARROWING OF SPINE W/ DISC PROB. USES C-PAP Last Myocardial Infarction Date:: 06/28/18 History of Any Multi-Drug Resistant Organisms: None Reported Past Surgical History: Cholecystectomy, Heart Catheterization With Stent, Hys terectomy Additional Past Surgical History / Comment(s): Lithotripsy, basket retrieval of kidney stones, COLONOSCOPY, loop recorder Past Anesthesia/Blood Transfusion Reactions: No Reported Reaction Additional Past Anesthesia/Blood Transfusion Reaction / Comment(s): BLOOD TRANSUFSION WHEN HAVING HER CHILDREN-NO REACTIONS TO BLOOD. Date of Last Stent Placement:: 06/28/18 Past Psychological History: No Psychological Hx Reported Additional Psychological History / Comment(s): Pt resides with her spouse. She is independent. Smoking Status: Former smoker Past Alcohol Use History: None Reported Additional Past Alcohol Use History / Comment(s): STARTED SMOKING AT AGE 18 AND QUIT AT AGE 25 (LITE SMOKER) Past Drug Use History: None Reported - Past Family History Mother Family Medical History: Cancer Additional Family Medical History / Comment(s): HAD LYMPHOMA THEN 15 YEARS LATER HAD SMALL CELL CA(TOMACH) Father Family Medical History: Myocardial Infarction (NM) Additional Family Medical History / Comment(s): PT WAS 9 YEARS OLD WHEN HER FATHER FROM MASSIVE NM. Brother(s) Family Medical History: Coronary Artery Disease (CAD), Myocardial Infarction (NM) Additional Family Medical History / Comment(s): Pt had a 42 yrs old brother of a massive NM and another brother who had CABG at the age of 39yrs. Sister(s) Family Medical History: Cancer Medications and Allergies Home Medications Medication Instructions Recorded Confirmed Type Multivitamins, Thera [Multivitamin 1 tab PO DAILY 10/12/16 01/02/21 History (formulary)] Aspirin 81 mg PO DAILY chew 11/28/16 01/02/21 Rx Pantoprazole [Protonix] 40 mg PO DAILY 10/05/19 01/02/21 History carvediloL [Coreg] 6.25 mg PO DAILY 10/06/19 01/02/21 History Doxazosin [Cardura] 4 mg PO DAILY 02/18/20 01/02/21 History Ezetimibe [Zetia] 10 mg PO DAILY 02/18/20 01/02/21 History Gabapentin [Neurontin] 300 mg PO Q8H 02/18/20 01/02/21 History Magnesium 30mg 1 tab PO DAILY 02/18/20 01/02/21 History Nitroglycerin Sl Tabs [Nitrostat] 0.4 mg SUBLINGUAL Q5M PRN 02/18/20 01/02/21 History metFORMIN HCL 500 mg PO DAILY 02/18/20 01/02/21 History Levothyroxine Sodium [Synthroid] 88 mcg PO DAILY 11/26/20 01/02/21 History amLODIPine BESYLATE 5 mg PO DAILY 11/26/20 01/02/21 History Krill/Om-3/Dha/Epa/Phospho/Ast 1 tab PO DAILY 12/21/20 01/02/21 History [Megared [place]-3 Krill 350 mg] predniSONE 10 mg PO DAILY 12/21/20 01/02/21 History Atorvastatin [Lipitor] 40 mg PO DAILY 90 Days #90 tab 12/25/20 01/02/21 Rx Isosorbide Mononitrate ER [Imdur] 30 mg PO DAILY 90 Days #90 12/25/20 01/02/21 Rx tab.er.24h Metoclopramide [Reglan] 5 mg PO ACHS 30 Days #120 tab 12/25/20 01/02/21 Rx Tamsulosin [Flomax] 0.4 mg PO PC-BRKFST 90 Days #90 12/25/20 01/02/21 Rx cap.er.24h Losartan [Cozaar] 25 mg PO DAILY 01/02/21 01/02/21 History Allergies Allergy/AdvReac Type Severity Reaction Status Date / Time No Known Allergies Allergy Verified 01/02/21 19:40 Physical Examination - Vital Signs Vital Signs: Vital Signs Temp Pulse Pulse Resp BP BP Pulse Ox 01/03/21 07:00 97.9 F 74 18 126/72 94 L 01/03/21 01:14 97.6 F 77 16 153/62 95 01/03/21 01:11 16 01/02/21 19:22 97.5 F L 73 16 162/81 95 01/02/21 18:38 98.4 F 79 16 177/84 95 Intake and Output 01/02/21 01/03/21 01/03/21 22:59 06:59 14:59 Output Total 240 Balance -240 Output: Urine 240 Other: # Voids 1 2 Weight 111.13 kg GENERAL: The patient is obese lady lying in bed and seems anxious. CHEST: The heart rate is regular rate rhythm. No murmurs to auscultation. No carotid bruit bilaterally. LUNG: Clear to auscultation bilaterally no wheezing noted throughout. Not labored breathing. ABDOMEN/GI: Bowel sounds present in all 4 quadrants. No tenderness to palpation throughout. NEUROLOGICAL: Higher mental function: The patient is awake, alert, oriented to self, place and time. Patient is following commands. No aphasia and no neglect. Cranial nerves: The pupils are round, equal and reactive to light and accommodation. Visual [place] are full to confrontation throughout. Extraocular movement is intact no nystagmus is noted. Facial sensation is decreased on the entire left side to touch. The facial strength: mild left facial weakness. Hearing is normal bilaterally to hand rub. Tongue is midline and moved [id number] without any difficulty. No dysarthria is noted. Shoulder shrug is normal bilaterally. Motor: The strength is 4+ over the left side. While the right upper extremity is 5/5 while right lower extremity seems 4+ to 5- but limited because of pain (lower back pain). Normal tone and bulk. Cerebellum: Normal finger to nose bilaterally. Sensation: Sensation is decreased to touch over the left side. Reflexes (right/left): 1+ throughout. Plantars are downgoing bilaterally. Results - Laboratory Findings CBC and BMP: 01/03/21 05:53 01/03/21 05:53 Abnormal Lab Findings: Abnormal Labs 01/02/21 01/02/21 01/03/21 20:01 21:50 05:53 RDW 14.9 H POC Glucose (mg/dL) 112 H Ur Leukocyte Esterase Moderate H Urine WBC 9 H Urine Mucus Rare H Assessment and Plan Assessment: This is a 70-year-old woman with medical history of multiple medical problems that was transferred because of elevated blood pressure with the blurry vision, generalized weakness, headache, and transient slurring the speech in which she had similar presentation on 12/22/2020 and had workup and was thought she had the hypertensive encephalopathy. On examination the patient had the left facial , and upper and lower extremity weakness as well as the paresthesia over the left side and she stated that onset was on 01/01/2021 at nighttime and has not worsened since presentation. No IV TPA since outside the window. Left facial weakness, left hemiparesis with paresthesia over the left is likely due to acute ischemic stroke. Likely small vessel disease from uncontrolled hypertension. Hypertensive emergency Uncontrolled hypertension (fluctuating for the last two years) and states is compliant with medication Hyperlipidemia Sleep apnea on CPAP Coronary artery disease status post stenting History of diabetes Plan: She was started on aspirin 81 mg by the primary team. I added the Plavix 75 mg daily and the patient patient to continue dual antiplatelets of aspirin 81mg and Plavix 75mg daily and after 21 days discontinue aspirin 81mg and to indefinitely continue Plavix. I loaded a patient with Plavix 200 mg once right now. I also loaded the patient with Lipitor 80 mg once and to increased Lipitor from 40 mg to 80 mg. I ordered a CTA of the head and neck urgent. I ordered MRI of the brain likely will be done tomorrow. Ordered 2-D echo, TSH. Consulted physical and occupation therapy Her last lipid panel is on 2020 and it's reported as the triglycerides 162, cholesterol 138, LDL 38.6 and HDL 67. This does not to be repeated. Ordered every 4 neuro checks Ordered at cardiac telemetry. Cardiology is consulted. Nephrology was consulted for uncontrolled hypertension and further work-up. Recommend to gradually bring the the blood pressure down and avoid >15% drop in 24 hours/day to avoid worsening of ischemia. We'll defer the rest of medical management to the primary team. We'll transfer the patient to 3 S (neurological stroke floor). The Plan was discussed with the patient, primary team as well as the nurse. Thank you for the consultation. UPDATE: CT angiogram of the head and neck is reported as no significant abnormality is seen. Stable exam. Dr. Bruce will take over neurology service starting tomorrow. Jere Ríos M.D. Neuro-hospitalist Time with Patient: Greater than 30
--- NOTE | 2021-01-03 12:03 | HP ---
HISTORY AND PHYSICAL 70-year-old white female in the emergency room transferred from [facility] in [place] for left-sided numbness in her face, her arms and her legs and blurred vision which she got last time she was here similar type symptoms due to hypertension acceleration. Her blood pressure was 220 in the ER over there, it was 174/80 here in the ER. Covid test was negative. Her blood pressure she says jumps for no reason, very high in nature. She has had a headache, blurry vision, as well. She took 4 baby aspirins before coming to the emergency room. She is very anxious, nervous. She has severe back pain. She takes no back medications and she has severe pain which could be triggering her high blood pressure, but we have to worry about any neurologic cause. She has a history of 5 stents. Cardiology had recently seen her on the last admission and adjust her blood pressure medicines, but apparently that did not work. MEDICATIONS: Home medicines: Prednisone 10 daily, Zestril 5 mg daily, omega-3 tablets daily. She has been taking amoxicillin q.12 hours for tooth infection. Amlodipine 5 mg daily, levothyroxine 88 mcg daily, metformin 500 daily, nitro sublingual daily, magnesium 30 mg daily, Neurontin 300 q8, Zetia 10 daily, Cardura 4 daily, Coreg 6.25 daily, Protonix 40 daily, multivitamin daily. ALLERGIES: Negative. REVIEW OF SYSTEMS: 14 point review of systems negative except for mentioned in HPI. PAST MEDICAL HISTORY: 5 cardiac stents, TIAs, prior strokes, rheumatoid arthritis, sleep apnea, osteoarthritis, diabetes mellitus, GERD, hypertension, dyslipidemia, myocardial infarction, diverticulitis, cholecystectomy, heart catheterization with stent, hysterectomy, lithotripsy. FAMILY HISTORY: Mother with cancer, lymphoma. Father with myocardial infarction. Father coronary artery disease, myocardial infarction. Sister with cancer. PHYSICAL EXAMINATION: Temp 98.4, pulse 70 to 79, respiratory rate 12 to 16, blood pressure 170s over 80s. O2 95%. PHYSICAL EXAM: No limitation. NEUROLOGIC: Alert and orient x3. PSYCH: Fair mood and affect. GI soft, nontender. CARDIOVASCULAR: S1, S2. LUNGS: Clear. EXTREMITIES: No cyanosis, clubbing, edema. NEUROLOGIC: Alert and orient x3. SKIN: Warm and dry. ASSESSMENT: 1. Hypertension acceleration of significant nature. 2. Probable cerebrovascular accident versus transient ischemic attack, acute in nature. 3. Hypertension acceleration. 4. Hypertensive encephalopathy. 5. Hypertensive urgency. 6. Rheumatoid arthritis. 7. Diabetes mellitus. 8. History of fibromyalgia. 9. Severe untreated cervical lumbar degenerative disc disease and severe pain. Prognosis is guarded. Wait for Neurology recommendations. Get her blood pressure under control while here. Prognosis guarded. MMODL / IJN: [id number] /
[2021-01-03] MEDS: SODIUM CHLORIDE 0.9% 1,000 ML IV SCH (12:13)
[2021-01-03] MEDS: metroNIDAZOLE-NS PMX 500 MG in SALINE 1 100ML.BAG IVPB SCH ×2 (12:13→20:52)
[2021-01-03 12:18] LABS: Glucose,Whole Blood 120 mg/dL (75-99)
--- NOTE | 2021-01-03 12:21 | PN ---
PROGRESS NOTE 70-year-old white female who was admitted. Discussed the case with Neurology today, Dr. Olsen, who feels the patient possibly had a stroke. Will order another CT scan and MRI of the brain. She has hypertension acceleration again for which Cardiology has been reconsulted. We are going to adjust her medications for blood pressure and rule out stroke. She has also been treated for colitis, transverse colitis recently and chronic constipation. Consult the surgeon who has seen her. We will keep her on some Flagyl for probably another week. I will order the Flagyl and for the transverse diverticulitis, await for Neurology recommendations. She is weak and fatigued. She is lying in bed. Cardiovascular S1, S2. Lungs clear. GI soft. LABS: Show normal white count, hemoglobin. BUN and creatinine are normal, 7 and 0.5. Sugars are low 100s. Troponins negative. UA shows 9 white cells, rare mucus. ASSESSMENT: 1. Possible cerebrovascular accident. 2. Left-sided weakness. 3. Blurred vision. 4. Hypertension encephalopathy. 5. Hypertension acceleration. Await for MRI of the brain angiography, CT again prior to increase in blood pressure medicines. Await multiple consultations for hypertension acceleration which she has had this for multiple reasons. She had straight leg raising test on her left leg for which she will need an epidural injection or take some pain pills at least as her back is severely degenerative disc disease, spondylosis, and lumbar disc herniation on the left side. Possibly will need pain pills or an epidural as an outpatient, but we have to rule out stroke first. MMODL / IJN: [id number] /
--- NOTE | 2021-01-03 12:36 | CT ---
EXAMINATION TYPE: CT angio head neck DATE OF EXAM: 01/03/2021 HISTORY: Left sided numbness and dizziness COMPARISON: CTA head neck 12/22/2020 CT DLP: 512.1 mGycm. Automated Exposure Control for Dose Reduction was Utilized. TECHNIQUE: CTA scan of the neck is performed with IV Contrast, patient injected with 75 mL of Isovue 370, axial images are obtained, coronal and sagittal reformatted images are reviewed. Three-D recons tructed images are created on an independent workstation and reviewed. FINDINGS: Carotid/Vascular Structures: There is no interval change. Other: No significant change. Degenerative disc changes are present visualized spine. IMPRESSION: No significant abnormality is seen, stable exam.
--- NOTE | 2021-01-03 13:26 | P.CRDCN ---
History of Present Illness Consult date: 01/03/21 History of present illness: HISTORY OF PRESENT ILLNESS: This is a 70-year-old female with a past medical history significant for diabetes mellitus, GERD, hyperlipidemia, hypertension, TIA, coronary artery disease with previous STEMI in 2018 with PCI to RCA. Patient follows in the office with Dr. Zepeda. We have been asked to see the patient in consultation for hypertension. Patient examined at the bedside. Patient originally presented to [facility] secondary to elevated blood pressure. Patient states she took her blood pressure at home and it was 220/100s. She reports her blood pressure usually runs in the 130s to 140s. 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 Patient reports left- sided weakness and numbness and tingling in her lips. She also reports some left-sided chest discomfort that she describes as a burning sensation which she reports was similar to her previous heart attack. Patient also reports feeling palpitations over the past few months. No previous history of atrial fib rillation. She reports a history of a loop recorder insertion. She states this was interrogated last month when she was admitted to the hospital for weakness and hypertension. Patient states she was told there was no arrhythmias or atrial fibrillation noted at that time. Most recent echocardiogram obtained in October 2020 reveals ejection fraction 55-60%, mild mitral regurgitation, and mild tricuspid regurgitation. Cardiac catheterization history: Patient underwent cardiac catheterization in May 2018 at [facility] secondary to inferior STEMI. Patient underwent PCI of the proximal RCA which was 99% occluded. Additional findings included 20% ostial LAD, 10% proximal LAD, 20% mid LAD. Left circumflex: Codominant artery, at the bifurcation site of the OM and the left circumflex, though left circumflex shows a borderline 4050 percent lesion, this vessel is of small size and not at target for intervention. The OM branch which is a sizable branch was a 20% diffuse proximal stenosis. The patient had abnormal stress test in October 2020. This was reviewed by Dr. Nagel during her previous hospitalization in November [address] Nagel suggested that the patient may have had some progression of the lesion in the circumflex which may account for her abnormal stress test. EKG reveals sinus mechanism with PVCs. Left axis deviation. Chest xray completed at outside facility was negative for acute process Laboratory data: WBC 6.54. Hemoglobin 12.4. Platelet count 166. Sodium 143. Potassium 3.5. BUN 7. Creatinine 0.5. Troponin negative 1 Current home cardiac medications include carvedilol 6.25 mg daily, aspirin 81 mg daily, losartan 25 mg daily, amlodipine 5 mg daily, Imdur 30 mg daily, Zetia 10 mg daily, Cardura 4 mg daily, and Lipitor 40 mg daily. REVIEW OF SYSTEMS: At the time of my exam: CONSTITUTIONAL: Denies fever or chills. HEENT: Denies blurred vision, vision changes, or eye pain. Denies hemoptysis CARDIOVASCULAR: Denies chest pain. Denies orthopnea. Denies PND. Denies palpitations RESPIRATORY: Denies shortness of breath. GASTROINTESTINAL: Denies abdominal pain. Denies nausea or vomiting. HEMATOLOGIC: Denies bleeding disorders. GENITOURINARY: Denies any blood in urine. SKIN: Denies pruitis. Denies rash. PHYSICAL EXAM: VITAL SIGNS: Reviewed. GENERAL: Well-developed in no acute distress. HEENT: Head is normocephalic. Pupils are equal, round. Sclerae anicteric. Mucous membranes of the mouth are moist. Neck supple. No JVD or thyromegaly LUNGS: Respirations even and unlabored. Lungs essentially clear to auscultation bilaterally. HEART: Regular rate and rhythm. S1 and S2 heard. ABDOMEN: Soft. Nondistended. Nontender. EXTREMITIES: Left-sided weakness. No clubbing or cyanosis. Peripheral pulses intact. No lower extremity edema NEUROLOGIC: Awake and alert. Oriented x 3. ASSESSMENT: Hypertensive emergency Left-sided weakness with left-sided facial numbness, suspect CVA Coronary artery disease with PCI to RCAMay 2018 Palpitations with history of loop recorder insertion History of TIA 2 Hyperlipidemia Diabetes mellitus Sleep apnea with CPAP use Morbid obesity: BMI 43.4 PLAN: Monitor blood pressure Continue current cardiac medications Neurology following for suspected CVA Plavix added per neurology Interrogate loop recorder Further recommendations pending patient's course Nurse practitioner note has been reviewed by physician. Signing provider agrees with the documented findings, assessment, and plan of care. Past Medical History Past Medical History: Diabetes Mellitus, GERD/Reflux, Hyperlipidemia, Hypertension, Myocardial Infarction (NC), Osteoarthritis (OA), Rheumatoid Arthritis (RA), Sleep Apnea/CPAP/BIPAP Additional Past Medical History / Comment(s): HX Kidney Stones. DIVERTICULITIS . BLOOD PRESSURE FLUCTUATES, LOOP recorder over a year ago. NARROWING OF SPINE W/ DISC PROB. USES C-PAP Last Myocardial Infarction Date:: 06/28/18 History of Any Multi-Drug Resistant Organisms: None Reported Past Surgical History: Cholecystectomy, Heart Catheterization With Stent, Hysterectomy Additional Past Surgical History / Comment(s): Lithotripsy, basket retrieval of kidney stones, COLONOSCOPY, loop recorder Past Anesthesia/Blood Transfusion Reactions: No Reported Reaction Additional Past Anesthesia/Blood Transfusion Reaction / Comment(s): BLOOD TRANSUFSION WHEN HAVING HER CHILDREN-NO REACTIONS TO BLOOD. Date of Last Stent Placement:: 06/28/18 Past Psychological History: No Psychological Hx Reported Additional Psychological History / Comment(s): Pt resides with her spouse. She is independent. Smoking Status: Former smoker Past Alcohol Use History: None Reported Additional Past Alcohol Use History / Comment(s): STARTED SMOKING AT AGE 18 AND QUIT AT AGE 25 (LITE SMOKER) Past Drug Use History: None Reported - Past Family History Mother Family Medical History: Cancer Additional Family Medical History / Comment(s): HAD LYMPHOMA THEN 15 YEARS LATER HAD SMALL CELL CA(TOMACH) Father Family Medical History: Myocardial Infarction (NC) Additional Family Medical History / Comment(s): PT WAS 9 YEARS OLD WHEN HER FATHER FROM MASSIVE NC. Brother(s) Family Medical History: Coronary Artery Disease (CAD), Myocardial Infarction (NC) Additional Family Medical History / Comment(s): Pt had a 42 yrs old brother of a massive NC and another brother who had CABG at the age of 39yrs. Sister(s) Family Medical History: Cancer Medications and Allergies Home Medications Medication Instructions Recorded Confirmed Type Multivitamins, Thera [Multivitamin 1 tab PO DAILY 10/12/16 01/02/21 History (formulary)] Aspirin 81 mg PO DAILY chew 11/28/16 01/02/21 Rx Pantoprazole [Protonix] 40 mg PO DAILY 10/05/19 01/02/21 History carvediloL [Coreg] 6.25 mg PO DAILY 10/06/19 01/02/21 History Doxazosin [Cardura] 4 mg PO DAILY 02/18/20 01/02/21 History Ezetimibe [Zetia] 10 mg PO DAILY 02/18/20 01/02/21 History Gabapentin [Neurontin] 300 mg PO Q8H 02/18/20 01/02/21 History Magnesium 30mg 1 tab PO DAILY 02/18/20 01/02/21 History Nitroglycerin Sl Tabs [Nitrostat] 0.4 mg SUBLINGUAL Q5M PRN 02/18/20 01/02/21 History metFORMIN HCL 500 mg PO DAILY 02/18/20 01/02/21 History Levothyroxine Sodium [Synthroid] 88 mcg PO DAILY 11/26/20 01/02/21 History amLODIPine BESYLATE 5 mg PO DAILY 11/26/20 01/02/21 History Krill/Om-3/Dha/Epa/Phospho/Ast 1 tab PO DAILY 12/21/20 01/02/21 History [Megared [place]-3 Krill 350 mg] predniSONE 10 mg PO DAILY 12/21/20 01/02/21 History Atorvastatin [Lipitor] 40 mg PO DAILY 90 Days #90 tab 12/25/20 01/02/21 Rx Isosorbide Mononitrate ER [Imdur] 30 mg PO DAILY 90 Days #90 12/25/20 01/02/21 Rx tab.er.24h Metoclopramide [Reglan] 5 mg PO ACHS 30 Days #120 tab 12/25/20 01/02/21 Rx Tamsulosin [Flomax] 0.4 mg PO PC-BRKFST 90 Days #90 12/25/20 01/02/21 Rx cap.er.24h Losartan [Cozaar] 25 mg PO DAILY 01/02/21 01/02/21 History Allergies Allergy/AdvReac Type Severity Reaction Status Date / Time No Known Allergies Allergy Verified 01/02/21 19:40 Physical Exam Vitals: Vital Signs Temp Pulse Pulse Resp BP BP Pulse Ox 01/03/21 07:00 97.9 F 74 18 126/72 94 L 01/03/21 01:14 97.6 F 77 16 153/62 95 01/03/21 01:11 16 01/02/21 19:22 97.5 F L 73 16 162/81 95 01/02/21 18:38 98.4 F 79 16 177/84 95 Intake and Output 0301/03/21 01/03/21 22:59 06:59 14:59 Output Total 240 Balance -240 Output: Urine 240 Other: # Voids 1 2 Weight 111.13 kg Results 01/03/21 05:53 01/03/21 05:53 Cardiac Enzymes 01/03/21 01/03/21 Range/Units 05:53 10:09 AST 30 (13-35) U/L Troponin I <0.012 (0.000-0.034) ng/mL CBC 01/03/21 Range/Units 05:53 WBC 6.54 (4.50-10.00) X 10*3/uL RBC 4.19 (4.10-5.20) X 10*6/uL Hgb 12.4 (12.0-15.0) g/dL Hct 38.6 (37.2-46.3) % Plt Count 166 (140-440) X 10*3/uL Comprehensive Metabolic Panel 01/03/21 Range/Units 05:53 Sodium 143 (135-145) mmol/L Potassium 3.5 (3.5-5.5) mmol/L Chloride 106 (96-109) mmol/L Carbon Dioxide 26.0 (21.6-31.8) mmol/L BUN 7.0 L (9.0-27.0) mg/dL Creatinine 0.5 L (0.6-1.5) mg/dL Glucose 101 (70-110) mg/dL Calcium 8.2 L (8.7-10.3) mg/dL AST 30 (13-35) U/L ALT 54 H (8-44) U/L Alkaline Phosphatase 66 (41-126) U/L Total Protein 5.4 L (6.2-8.2) g/dL Albumin 3.90 (3.80-4.90) g/dL Current Medications Generic Name Dose Route Start Last Admin Trade Name Freq PRN Reason Stop Dose Admin Acetaminophen 650 mg 01/02/21 21:17 01/03/21 05:17 Acetaminophen Tab 325 Mg Tab PO 650 mg Q6HR PRN Administration Fever and/ or Pain Amlodipine Besylate 5 mg 01/03/21 09:00 01/03/21 08:54 Amlodipine 5 Mg Tab PO 5 mg DAILY MINERVA Administration Aspirin 81 mg 01/03/21 09:00 01/03/21 08:55 Aspirin 81 Mg PO 81 mg DAILY MINERVA Administration Atorvastatin Calcium 80 mg 01/04/21 21:00 Atorvastatin 80 Mg Tab PO HS [facility] Carvedilol 6.25 mg 01/03/21 17:30 Carvedilol 6.25 Mg Tab PO BID-W/MEALS [facility] Clopidogrel Bisulfate 75 mg 01/04/21 09:00 Clopidogrel 75 Mg Tab PO DAILY [facility] Doxazosin Mesylate 4 mg 01/03/21 09:00 01/03/21 08:55 Doxazosin 4 Mg Tab PO 4 mg DAILY MINERVA Administration Ezetimibe 10 mg 01/03/21 09:00 01/03/21 08:55 Ezetimibe 10 Mg Tab PO 10 mg DAILY MINERVA Administration Gabapentin 300 mg 01/02/21 22:00 01/03/21 05:15 Gabapentin 300 Mg Cap PO 300 mg Q8H MINERVA Administration Metronidazole 500 mg/ IV 100 mls @ 100 mls/hr 01/03/21 12:00 01/03/21 12:13 Solution IVPB 100 mls/hr Q8H MINERVA Administration Sodium Chloride 1,000 mls @ 50 mls/hr 01/03/21 12:00 01/03/21 12:13 Saline 0.9% IV 50 mls/hr .Q20H MINERVA Administration Isosorbide Mononitrate 30 mg 01/03/21 09:00 01/03/21 08:54 Isosorbide Mononitrate Er 30 Mg Tab.Er.24h PO 30 mg DAILY MINERVA Administration Levothyroxine Sodium 88 mcg 01/03/21 06:30 01/03/21 08:55 Levothyroxine 88 Mcg Tab PO 88 mcg DAILY@0630 MINERVA Administration Losartan Potassium 25 mg 01/03/21 09:00 01/03/21 08:55 Losartan 25 Mg Tab PO 25 mg DAILY MINERVA Administration Metoclopramide HCl 5 mg 01/03/21 07:30 01/03/21 12:12 Metoclopramide 5 Mg Tab PO 5 mg ACHS MINERVA Administration Nitroglycerin 0.4 mg 01/02/21 21:06 Nitroglycerin Sl Tabs 0.4 Mg Tab SUBLINGUAL Q5M PRN Chest Pain Pantoprazole Sodium 40 mg 01/03/21 09:00 01/03/21 08:55 Pantoprazole 40 Mg Tablet PO 40 mg DAILY MINERVA Administration Prednisone 10 mg 01/03/21 09:00 01/03/21 08:55 Prednisone 10 Mg Tab PO 10 mg DAILY MINERVA Administration Tamsulosin HCl 0.4 mg 01/03/21 08:30 01/03/21 08:55 Tamsulosin 0.4 Mg Cap.Er.24h PO 0.4 mg PC-BRKFST MINERVA Administration Intake and Output 01/02/21 01/03/21 01/03/21 22:59 06:59 14:59 Output Total 240 Balance -240 Output: Urine 240 Other: # Voids 1 2 Weight 111.13 kg 01/03/21 05:53 01/03/21 05:53
--- NOTE | 2021-01-03 17:05 | P.GSCN ---
History of Present Illness Consult date: 01/03/21 Reason for Consult: Constipation History of present illness: This a 70-year-old female who is being admitted for workup for stroke. Patient apparently has had issues with constipation. She's not had a bowel movement for 5 days. She denies a significant abdominal pain. Past Medical History Past Medical History: Diabetes Mellitus, GERD/Reflux, Hyperlipidemia, Hypertension, Myocardial Infarction (MD), Osteoarthritis (OA), Rheumatoid Arthritis (RA), Sleep Apnea/CPAP/BIPAP Additional Past Medical History / Comment(s): HX Kidney Stones. DIVERTICULITIS . BLOOD PRESSURE FLUCTUATES, LOOP recorder over a year ago. NARROWING OF SPINE W/ DISC PROB. USES C-PAP Last Myocardial Infarction Date:: 06/28/18 History of Any Multi-Drug Resistant Organisms: None Reported Past Surgical History: Cholecystectomy, Heart Catheterization With Stent, Hysterectomy Additional Past Surgical History / Comment(s): Lithotripsy, basket retrieval of kidney stones, COLONOSCOPY, loop recorder Past Anesthesia/Blood Transfusion Reactions: No Reported Reaction Additional Past Anesthesia/Blood Transfusion Reaction / Comm: BLOOD TRANSUFSION WHEN HAVING HER CHILDREN-NO REACTIONS TO BLOOD. Date of Last Stent Placement:: 06/28/18 Past Psychological History: No Psychological Hx Reported Additional Psychological History / Comment(s): Pt resides with her spouse. She is independent. Smoking Status: Former smoker Past Alcohol Use History: None Reported Additional Past Alcohol Use History / Comment(s): STARTED SMOKING AT AGE 18 AND QUIT AT AGE 25 (LITE SMOKER) Past Drug Use History: None Reported - Past Family History Mother Family Medical History: Cancer Additional Family Medical History / Comment(s): HAD LYMPHOMA THEN 15 YEARS LATER HAD SMALL CELL CA(TOMACH) Father Family Medical History: Myocardial Infarction (MD) Additional Family Medical History / Comment(s): PT WAS 9 YEARS OLD WHEN HER FATHER FROM MASSIVE MD. Brother(s) Family Medical History: Coronary Artery Disease (CAD), Myocardial Infarction (MD) Additional Family Medical History / Comment(s): Pt had a 42 yrs old brother of a massive MD and another brother who had CABG at the age of 39yrs. Sister(s) Family Medical History: Cancer Medications and Allergies Home Medications Medication Instructions Recorded Confirmed Type Multivitamins, Thera [Multivitamin 1 tab PO DAILY 10/12/16 01/02/21 History (formulary)] Aspirin 81 mg PO DAILY chew 11/28/16 01/02/21 Rx Pantoprazole [Protonix] 40 mg PO DAILY 10/05/19 01/02/21 History carvediloL [Coreg] 6.25 mg PO DAILY 10/06/19 01/02/21 History Doxazosin [Cardura] 4 mg PO DAILY 02/18/20 01/02/21 History Ezetimibe [Zetia] 10 mg PO DAILY 02/18/20 01/02/21 History Gabapentin [Neurontin] 300 mg PO Q8H 02/18/20 01/02/21 History Magnesium 30mg 1 tab PO DAILY 02/18/20 01/02/21 History Nitroglycerin Sl Tabs [Nitrostat] 0.4 mg SUBLINGUAL Q5M PRN 02/18/20 01/02/21 History metFORMIN HCL 500 mg PO DAILY 02/18/20 01/02/21 History Levothyroxine Sodium [Synthroid] 88 mcg PO DAILY 11/26/20 01/02/21 History amLODIPine BESYLATE 5 mg PO DAILY 11/26/20 01/02/21 History Krill/Om-3/Dha/Epa/Phospho/Ast 1 tab PO DAILY 12/21/20 01/02/21 History [Megared [place]-3 Krill 350 mg] predniSONE 10 mg PO DAILY 12/21/20 01/02/21 History Atorvastatin [Lipitor] 40 mg PO DAILY 90 Days #90 tab 12/25/20 01/02/21 Rx Isosorbide Mononitrate ER [Imdur] 30 mg PO DAILY 90 Days #90 12/25/20 01/02/21 Rx tab.er.24h Metoclopramide [Reglan] 5 mg PO ACHS 30 Days #120 tab 12/25/20 01/02/21 Rx Tamsulosin [Flomax] 0.4 mg PO PC-BRKFST 90 Days #90 12/25/20 01/02/21 Rx cap.er.24h Losartan [Cozaar] 25 mg PO DAILY 01/02/21 01/02/21 History Allergies Allergy/AdvReac Type Severity Reaction Status Date / Time No Known Allergies Allergy Verified 01/02/21 19:40 Surgical - Exam Vital Signs Temp Pulse Resp BP Pulse Ox 98.4 F 79 16 177/84 95 01/02/21 18:38 01/02/21 18:38 01/02/21 18:38 01/02/21 18:38 01/02/21 18:38 - General well developed, well nourished, no distress - Eyes PERRL - ENT normal pinna - Neck no masses - Respiratory normal expansion - Cardiovascular Rhythm: regular - Abdomen Obese Abdomen: soft, non tender Results - Labs 01/03/21 05:53 01/03/21 05:53 Abnormal Lab Results - Last 24 Hours (Table) 01/02/21 01/02/21 01/03/21 Range/Units 20:01 21:50 05:53 RDW 14.9 H (11.5-14.5) % BUN (9.0-27.0) mg/dL Creatinine (0.6-1.5) mg/dL POC Glucose (mg/dL) 112 H (75-99) mg/dL Calcium (8.7-10.3) mg/dL ALT (8-44) U/L Total Protein (6.2-8.2) g/dL Globulin (1.6-3.3) g/dL Ur Leukocyte Esterase Moderate H (Negative) Urine WBC 9 H (0-5) /hpf Urine Mucus Rare H (None) /hpf 01/03/21 01/03/21 Range/Units 05:53 12:14 RDW (11.5-14.5) % BUN 7.0 L (9.0-27.0) mg/dL Creatinine 0.5 L (0.6-1.5) mg/dL POC Glucose (mg/dL) 120 H (75-99) mg/dL Calcium 8.2 L (8.7-10.3) mg/dL ALT 54 H (8-44) U/L Total Protein 5.4 L (6.2-8.2) g/dL Globulin 1.5 L (1.6-3.3) g/dL Ur Leukocyte Esterase (Negative) Urine WBC (0-5) /hpf Urine Mucus (None) /hpf Diabetes panel 01/03/21 Range/Units 05:53 Sodium 143 (135-145) mmol/L Potassium 3.5 (3.5-5.5) mmol/L Chloride 106 (96-109) mmol/L Carbon Dioxide 26.0 (21.6-31.8) mmol/L BUN 7.0 L (9.0-27.0) mg/dL Creatinine 0.5 L (0.6-1.5) mg/dL Glucose 101 (70-110) mg/dL Calcium 8.2 L (8.7-10.3) mg/dL AST 30 (13-35) U/L ALT 54 H (8-44) U/L Alkaline Phosphatase 66 (41-126) U/L Total Protein 5.4 L (6.2-8.2) g/dL Albumin 3.90 (3.80-4.90) g/dL Thyroid panel 01/03/21 Range/Units 05:53 TSH 3.190 (0.350-5.500) uIU/mL Calcium panel 01/03/21 Range/Units 05:53 Calcium 8.2 L (8.7-10.3) mg/dL Albumin 3.90 (3.80-4.90) g/dL Pituitary panel 01/03/21 01/03/21 Range/Units 05:53 05:53 Sodium 143 (135-145) mmol/L Potassium 3.5 (3.5-5.5) mmol/L Chloride 106 (96-109) mmol/L Carbon Dioxide 26.0 (21.6-31.8) mmol/L BUN 7.0 L (9.0-27.0) mg/dL Creatinine 0.5 L (0.6-1.5) mg/dL Glucose 101 (70-110) mg/dL Calcium 8.2 L (8.7-10.3) mg/dL TSH 3.190 (0.350-5.500) uIU/mL Adrenal panel 01/03/21 Range/Units 05:53 Sodium 143 (135-145) mmol/L Potassium 3.5 (3.5-5.5) mmol/L Chloride 106 (96-109) mmol/L Carbon Dioxide 26.0 (21.6-31.8) mmol/L BUN 7.0 L (9.0-27.0) mg/dL Creatinine 0.5 L (0.6-1.5) mg/dL Glucose 101 (70-110) mg/dL Calcium 8.2 L (8.7-10.3) mg/dL Total Bilirubin 1.0 (0.2-1.2) mg/dL AST 30 (13-35) U/L ALT 54 H (8-44) U/L Alkaline Phosphatase 66 (41-126) U/L Total Protein 5.4 L (6.2-8.2) g/dL Albumin 3.90 (3.80-4.90) g/dL Assessment and Plan Assessment: Constipation. Patient will be given a Fleet enema today.
[2021-01-03] MEDS: carvediloL 6.25 MG TAB PO SCH (17:08)
[2021-01-03 17:11] LABS: Glucose,Whole Blood 139 mg/dL (75-99)
[2021-01-03] MEDS ORDERED: NA PHOS,M-B/NA PHOS,DI-BA 133 ML ENEMA RECTAL STA (17:14)
[2021-01-03 19:38] LABS: Glucose,Whole Blood 210 mg/dL (75-99)
[2021-01-03] MEDS: INSULIN ASPART (NovoLOG) 100 UNIT/ML VIAL SQ SCH (20:58)
[2021-01-04] MEDS: metroNIDAZOLE-NS PMX 500 MG in SALINE 1 100ML.BAG IVPB SCH ×2 (03:42→11:22)
[2021-01-04 06:07] LABS: Glucose,Whole Blood 109 mg/dL (75-99)
[2021-01-04] MEDS: METOCLOPRAMIDE 5 MG TAB PO SCH ×4 (06:34→20:48)
[2021-01-04] MEDS: GABAPENTIN 300 MG CAP PO SCH ×3 (06:34→20:48)
[2021-01-04] MEDS: carvediloL 6.25 MG TAB PO SCH ×2 (06:34→17:44)
[2021-01-04] MEDS: INSULIN ASPART (NovoLOG) 100 UNIT/ML VIAL SQ SCH ×4 (06:34→20:45)
[2021-01-04] MEDS: LEVOTHYROXINE 88 MCG TAB PO SCH (06:34)
[2021-01-04] MEDS: LOSARTAN 25 MG TAB PO SCH (08:50)
[2021-01-04] MEDS: amLODIPine 5 MG TAB PO SCH (08:50)
[2021-01-04] MEDS: ASPIRIN 81 MG PO SCH (08:50)
[2021-01-04] MEDS: CLOPIDOGREL 75 MG TAB PO SCH (08:50)
[2021-01-04] MEDS: TAMSULOSIN 0.4 MG CAP.ER.24H PO SCH (08:50)
[2021-01-04] MEDS: ISOSORBIDE MONONITRATE ER 30 MG TAB.ER.24H PO SCH (08:50)
[2021-01-04] MEDS: PANTOPRAZOLE 40 MG TABLET PO SCH (08:50)
[2021-01-04] MEDS: DOXAZOSIN 4 MG TAB PO SCH (08:50)
[2021-01-04] MEDS: predniSONE 10 MG TAB PO SCH (08:51)
[2021-01-04] MEDS: EZETIMIBE 10 MG TAB PO SCH ×2 (08:51→10:39)
[2021-01-04] MEDS: SODIUM CHLORIDE 0.9% 1,000 ML IV SCH (08:54)
[2021-01-04] MEDS ORDERED: MAGNESIUM CITRATE 296 ML BOTTLE PO ONE (08:58)
--- NOTE | 2021-01-04 10:16 | ECHOF ---
Referral Reason:stroke MEASUREMENTS -------- HEIGHT: 160.0 cm WEIGHT: 108.9 kg BP: FINDINGS -------- Sinus rhythm. This was a techncally difficult study with suboptimal views, , Lumason utilized for enhancement of im ages. Pt had Echo 11/27/20 & [facility]: Limited study for tia. Overall left ventricular systolic function is normal with, an EF between 55 - 60 %. 5.0mg OF Lumason UTLIZED: 2 OR MORE WALL SEGMENTS NOT VISUALIZED. CONCLUSIONS -------- 1. This was a techncally difficult study with suboptimal views, , Lumason utilized for enhancement of images. 2. Pt had Echo 11/27/20 & [facility]: Limited study for tia. 3. Overall left ventricular systolic function is normal with, an EF between 55 - 60 %. 4. 5.0mg OF Lumason UTLIZED: 2 OR MORE WALL SEGMENTS NOT VISUALIZED. BIOMEDICAL PHOTOGRAPHER: Ana Valdez RDCS
[2021-01-04 12:07] LABS: Glucose,Whole Blood 146 mg/dL (75-99)
--- NOTE | 2021-01-04 12:42 | P.PN ---
Subjective Progress Note Date: 01/04/21 CHIEF COMPLAINT: Left-sided weakness HISTORY OF PRESENT ILLNESS: Patient is a hospital with stroke like symptoms. Surgical service is following in regards to constipation. She did have an enema yesterday. She only reports a small bowel movement after the enema. She's had decreased appetite. She is scheduled for an MRI of the brain today. She's afebrile. PHYSICAL EXAM: VITAL SIGNS: Reviewed. GENERAL: Well-developed in no acute distress. HEENT: No sclera icterus. Extraocular movements grossly intact. Moist buccal mucosa. Head is atraumatic, normocephalic. ABDOMEN: Soft. Mildly distended NEUROLOGIC: Alert and oriented. Cranial nerves II through XII grossly intact. ASSESSMENT: 1. Constipation PLAN: -We'll give citrate of magnesium -Continue supportive care Physician Elementary Instructional Coach note has been reviewed by physician. Signing provider agrees with the documented findings, assessment, and plan of care. Objective - Vital Signs Vital signs: Vital Signs Temp 97.8 F 01/04/21 08:00 Pulse 66 01/04/21 08:00 Resp 18 01/04/21 08:00 BP 121/61 01/04/21 08:00 Pulse Ox 95 01/04/21 08:00 Intake & Output 01/03/21 01/04/21 01/04/21 18:59 06:59 18:59 Intake Total 340 Output Total 350 950 400 Balance -10 -950 -400 Weight 109 kg Intake: Intake, IV Titration 100 Amount Sodium Chloride 0.9% 1, 100 000 ml @ 50 mls/hr IV . Q20H [facility]ERVA Rx#:[id number] Oral 240 Output: Urine 350 950 400 Other: Voiding Method Toilet Toilet # Voids 1 1 - Labs CBC & Chem 7: 01/03/21 05:53 01/03/21 05:53 Labs: Abnormal Lab Results - Last 24 Hours (Table) 01/03/21 01/03/21 01/04/21 Range/Units 17:06 19:34 06:00 POC Glucose (mg/dL) 139 H 210 H 109 H (75-99) mg/dL 01/04/21 Range/Units 12:06 POC Glucose (mg/dL) 146 H (75-99) mg/dL
--- NOTE | 2021-01-04 14:18 | P.PN ---
Subjective Progress Note Date: 01/04/21 The patient was seen for a follow-up. Please refer to Dr. Jere Ríos note for details. Patient's was also present. Patient tells me that her symptoms started on Monday night when she woke up, uri nated 6 times, felt clammy, sweaty. She felt lightheaded, couldn't drink and heart was racing and face was red. She took an extra aspirin 81 mg. Her checked her blood pressure at 10 in the morning was 220/110, she took another aspirin 81 mg, but her called the ambulance and patient was taken to [facility] in [place]. Patient was subsequently transferred to [facility] on 01/02/2021 at 6:27 PM. Patient states that she was noted to be weak on the left side, some slurred speech. Patient was not a candidate for TPA. Patient underwent repeat CTA of head and neck, which again showed no stenosis. No occlusion. EKG shows sinus rhythm with occasional PVCs, left axis deviation, possible anterior infarct, age undetermined. 2-D echo shows sinus rhythm. Technically difficult study with suboptimal views. Left ventricle systolic function is 55-60%. It was a limited study. Patient has received loading dose of Plavix 225 mg yesterday 10:43 AM. Patient today does not notice any significant improvement, as mentioned below. Hemoglobin A1c 6.9 on 12/22/2020, total cholesterol 138, LDL 38.6, HDL 67 and triglycerides 162. At present patient continues to have some slurring was speech, heaviness of the left arm, numbness of bilateral lower limbs and hands bilaterally. Patient says that she feels generalized weakness, not feeling like herself. Sometimes she feels tightness in the chest, burning in the back, left arm feels heavy. Both legs hurt to touch, and her left arm is tender to touch. She feels fatigued weak tired and she feels her body quivers. Also complains of blurred vision. Telemetry monitoring showing sinus bradycardia in the 50s, PVCs, slight SVTs and PACs. Objective - Vital Signs Vital signs: Vital Signs Temp 97.8 F 01/04/21 08:00 Pulse 66 01/04/21 08:00 Resp 18 01/04/21 08:00 BP 121/61 01/04/21 08:00 Pulse Ox 95 01/04/21 08:00 Intake & Output 01/03/21 01/04/21 01/04/21 18:59 06:59 18:59 Intake Total 340 Output Total 350 950 400 Balance -10 -950 -400 Weight 109 kg Intake: Intake, IV Titration 100 Amount Sodium Chloride 0.9% 1, 100 000 ml @ 50 mls/hr IV . Q20H [facility] Rx#:[id number] Oral 240 Output: Urine 350 950 400 Other: Voiding Method Toilet Toilet # Voids 1 1 - Exam On examination patient is an elderly female, very pleasant, in no acute distress. She has mild slurring with dysarthria, but no aphasia. Patient can name and speak very well. On cranial examination pupils are round and reactive to light, visual robledo are full on confrontation, extraocular muscles are intact with no nystagmus. She has left facial asymmetry, tongue protrudes the midline. Palatal elevation sensation normal, hearing and shoulder shrug normal, facial sensations slightly decreased on the left side of the face. On muscle strength testing there is left pronator drift. The strength is normal in the deltoid, biceps and triceps. Underwear Cutter is 5-on the left. In the lower extremities at hip flexion is 4+5-/4, ankles and knees are normal. Reflexes are 2 in the right upper limb 1+ in the left upper limb. 2 in the lower limbs and plantars are downgoing bilaterally. Sensory to touch is decreased in the left a rm and left leg as compared to the right. Patient is mildly ataxic for [id number] on either side. Bulk of muscles normal. On general exam should there is no bruit or murmur, peripheral pulses are present. Abdomen is soft, slightly protuberant. Bulk of muscles normal. - Labs CBC & Chem 7: 01/03/21 05:53 01/03/21 05:53 Labs: Abnormal Lab Results - Last 24 Hours (Table) 01/03/21 01/03/21 01/04/21 Range/Units 17:06 19:34 06:00 POC Glucose (mg/dL) 139 H 210 H 109 H (75-99) mg/dL 01/04/21 Range/Units 12:06 POC Glucose (mg/dL) 146 H (75-99) mg/dL Assessment and Plan Assessment: * Recurrent TIAs versus hypertensive encephalopathy, now presented with new left-sided numbness and weakness, possible CVA. * Hypertension, uncontrolled * Diabetes * Hyperlipidemia * Obesity * Obstructive sleep apnea on CPAP * Coronary artery disease, history of CO in 2018 Plan: * Agree with continuing dual antiplatelet medication at this time, and high-dose statins. * Cardiology on board, considering about cardiac catheterization. * Recommend transesophageal echocardiogram to rule out embolic source. * Suggest removal of the loop recorder, so patient can have an MRI of the brain, to evaluate for the type and mechanism of CVA. * Blood pressure 126/58. May keep blood pressure on higher end. Avoid hypoten danay.
--- NOTE | 2021-01-04 15:40 | P.PN ---
Subjective Progress Note Date: 01/04/21 HISTORY OF PRESENT ILLNESS: 01/03/2021 This is a 70-year-old female with a past medical history significant for diabetes mellitus, GERD, hyperlipidemia, hypertension, TIA, coronary artery disease with previous STEMI in 2018 with PCI to RCA. Patient follows in the office with Dr. Zepeda. We have been asked to see the patient in consultation for hypertension. Patient examined at the bedside. Patient originally presented to [facility] secondary to elevated blood pressure. Patient states she took her blood pressure at home and it was 220/100s. She reports her blood pressure usually runs in the 130s to 140s. She states that she saw her human resources support specialist on who discontinued her lisinopril and started her on losartan because she was experiencing a cough secondary to the lisinopril. Patient reports left- sided weakness and numbness and tingling in her lips. She also reports some left-sided chest discomfort that she describes as a burning sensation which she reports was similar to her previous heart attack. Patient also reports feeling palpitations over the past few months. No previous history of atrial fibrillation. She reports a history of a loop recorder insertion. She states this was interrogated last month when she was admitted to the hospital for weak ness and hypertension. Patient states she was told there was no arrhythmias or atrial fibrillation noted at that time. Most recent echocardiogram obtained in October 2020 reveals ejection fraction 5 5-60%, mild mitral regurgitation, and mild tricuspid regurgitation. Cardiac catheterization history: Patient underwent cardiac catheterization in May 2018 at [facility] secondary to inferior STEMI. Patient underwent PCI of the proximal RCA which was 99% occluded. Additional findings included 20% ostial LAD, 10% proximal LAD, 20% mid LAD. Left circumflex: Codominant artery, at the bifurcation site of the OM and the left circumflex, though left circumflex shows a borderline 4050 percent lesion, this vessel is of small size and not at target for intervention. The OM branch which is a sizable branch was a 20% diffuse proximal stenosis. The patient had abnormal stress test in October 2020. This was reviewed by Dr. Nagel during her previous hospitalization in November [address] Nagel suggested that the patient may have had some progression of the lesion in the circumflex which may account for her abnormal stress test. EKG reveals sinus mechanism with PVCs. Left axis deviation. Chest xray completed at outside facility was negative for acute process Laboratory data: WBC 6.54. Hemoglobin 12.4. Platelet count 166. Sodium 143. Potassium 3.5. BUN 7. Creatinine 0.5. Troponin negative 1 Current home cardiac medications include carvedilol 6.25 mg daily, aspirin 81 mg daily, losartan 25 mg daily, amlodipine 5 mg daily, Imdur 30 mg daily, Zetia 10 mg daily, Cardura 4 mg daily, and Lipitor 40 mg daily. 01/04/2021 Patient examined this morning at the bedside. She continues to report left- sided numbness. She denies chest pain or pressure. Denies shortness of breath. Limited echo completed revealing ejection fraction 55-60% PHYSICAL EXAM: VITAL SIGNS: Reviewed. GENERAL: Well-developed in no acute distress. HEENT: Head is normocephalic. Pupils are equal, round. Sclerae anicteric. Mucous membranes of the mouth are moist. Neck supple. No JVD or thyromegaly LUNGS: Respirations even and unlabored. Lungs essentially clear to auscultation bilaterally. HEART: Regular rate and rhythm. S1 and S2 heard. ABDOMEN: Soft. Nondistended. Nontender. EXTREMITIES: Left-sided weakness. No clubbing or cyanosis. Peripheral pulses intact. No lower extremity edema NEUROLOGIC: Awake and alert. Oriented x 3. ASSESSMENT: Hypertensive emergency Left-sided weakness with left-sided facial numbness, suspect CVA Coronary artery disease with PCI to RCAMay 2018 Palpitations with history of loop recorder insertion History of TIA 2 Hyperlipidemia Diabetes mellitus Sleep apnea with CPAP use Morbid obesity: BMI 43.4 PLAN: Monitor blood pressure Continue current cardiac medications Await records of loop recorder interrogation performed yesterday Neurology recommending SOFIYA and removal of loop recorder so patient can have MRI of the brain. Patient is agreeable to having her loop recorder removed. Patient will undergo SOFIYA and removal of loop recorder tomorrow Further recommendations pending patient's course Nurse practitioner note has been reviewed by physician. Signing provider agrees with the documented findings, assessment, and plan of care. Objective - Vital Signs Vital signs: Vital Signs Temp 97.9 F 01/04/21 12:00 Pulse 64 01/04/21 14:00 Resp 18 01/04/21 14:00 BP 126/58 01/04/21 12:00 Pulse Ox 95 01/04/21 12:00 Intake & Output 01/03/21 01/04/21 01/04/21 18:59 06:59 18:59 Intake Total 340 Output Total 350 950 400 Balance -10 -950 -400 Weight 109 kg Intake: Intake, IV Titration 100 Amount Sodium Chloride 0.9% 1, 100 000 ml @ 50 mls/hr IV . Q20H [facility] Rx#:[id number] Oral 240 Output: Urine 350 950 400 Other: Voiding Method Toilet Toilet # Voids 1 1 - Labs CBC & Chem 7: 01/03/21 05:53 01/03/21 05:53 Labs: Abnormal Lab Results - Last 24 Hours (Table) 01/03/21 01/03/21 01/04/21 Range/Units 17:06 19:34 06:00 POC Glucose (mg/dL) 139 H 210 H 109 H (75-99) mg/dL 01/04/21 Range/Units 12:06 POC Glucose (mg/dL) 146 H (75-99) mg/dL
[2021-01-04 17:06] LABS: Glucose,Whole Blood 161 mg/dL (75-99)
[2021-01-04] MEDS ORDERED: bisacodyL 5 MG TABLET.DR PO PRN (17:47)
--- NOTE | 2021-01-04 19:17 | PN ---
PROGRESS NOTE She is a 70-year-old white female came in with numbness and possible TIA versus stroke. She is scheduled for a MRI tomorrow after loop recorder which is being removed by Cardiology. She cannot get an MRI until loop recorder has been removed. She continues to have some slurred speech. She is sitting up in bed, giving appropriate answers. She has some left-sided weakness and some tightness in her chest, some blurred vision. Cardiovascular S1-S2. Lungs are clear. GI is soft, distended. BUN is 7, creatinine 0.5, sodium 143, potassium 3.5, hemoglobin 12.4. ASSESSMENT: 1. Recurrent transient ischemic attacks. 2. Hypertensive encephalopathy. 3. Left-sided weakness, numbness, possible cerebrovascular accident. 4. Hypertension, uncontrolled especially at home causing blurred vision. 5. Diabetes mellitus. 6. Dyslipidemia. 7. Obesity. 8. Sleep apnea. 9. Coronary artery disease. Continue on dual antiplatelets, high-dose statin. Cardiology is going to maybe do a heart catheterization. They are going to take the loop recorder so she can get an MRI. Maybe a SOFIYA will also be done tomorrow after loop recorder is removed to rule out embolic stroke. MMODL / IJN: [id number] /
--- NOTE | 2021-01-04 19:32 | CONS ---
CONSULTATION REASON FOR CONSULT: Uncontrolled hypertension. HISTORY OF PRESENT ILLNESS: The patient is a 70-year-old female with history of hypertension for about 10 years recently with episodes of severely elevated blood pressure as well as hypotension. The patient was admitted to the hospital with complaints of numbness, tingling, not feeling well. Her blood pressure was as high as 220 at home prior to admission and it appears that it has decreased significantly, now staying in the 120s and as low as 105 mmHg systolic yesterday. The patient states that whenever she exerts herself her blood pressure significantly rises. She has also had palpitations and she did report increased urination when her blood pressure is elevated. No complaints of flushing or headaches. No blurred vision. Patient is complaining of numbness and tingling in her feet and arm, which was new. CT angiogram of the head and neck done on admission on January 03 did not reveal any abnormalities. The patient has been evaluated by Neurology. Currently she is maintained on Cozaar, Imdur, Cardura, Coreg and Norvasc. The patient is also getting IV fluids at 50 mL an hour. Serum creatinine is 0.5 mg/dL. Potassium is at 3.5 mEq/L. UA is completely benign. PAST MEDICAL HISTORY: Hypertension, type 2 diabetes, hyperlipidemia, history of [place], coronary artery disease, rheumatoid arthritis, obstructive sleep apnea, history of kidney stones, spinal stenosis. PAST SURGICAL HISTORY: Cholecystectomy, cardiac catheterization, coronary stent placement, hysterectomy, lithotripsy for kidney stones, colonoscopy, loop recorder. SOCIAL HISTORY: Negative for smoking, drug abuse or alcohol abuse. Patient is a former smoker. MEDICATIONS: Prior to admission included multivitamins, Protonix, Coreg Cardura, Zetia, Neurontin, magnesium, Nitrostat, metformin, Synthroid, amlodipine, Krill oil, Zestril, prednisone, aspirin, Lipitor, Reglan, Flomax, Flagyl. ALLERGIES: NONE. REVIEW OF SYSTEMS: As per HPI. Other systems negative. EXAMINATION: Patient is comfortable, awake, alert, oriented x3, not in any acute distress. Blood pressure this morning 115/62, heart rate of 54 per minute, patient is afebrile. Examination of the heart S1, S2. Examination of the lungs, bilateral breath sounds are heard. Abdomen is soft, nontender. Examination of lower extremities shows no evidence of edema. MEDICAL COLLECTIONS REPRESENTATIVE exam grossly intact. LAB: Show sodium 143, potassium 3.5, BUN of 7, serum creatinine 0.5 mg/dL. UA is completely benign. ASSESSMENT: 1. Episodic hypertension. Currently blood pressure is very well controlled. We will check workup to rule out secondary causes of hypertension as patient has had two admissions with severely uncontrolled hypertension with systolic blood pressure above 220 on initial admission. Currently patient is maintained on four blood pressure medicines with Imdur as well. She is not on any diuretics at this point. I will discontinue the IV fluids. We will continue with the current medications and I will check renal aldosterone level and free plasma metanephrines. TSH will be ordered as well. 2. Numbness and tingling in upper and lower extremities, being followed by Neurology. No evidence of ischemia noted on CT angiogram done on 01/03/2021, most likely recurrent transient ischemic attacks. 3. Type 2 diabetes. 4. Coronary artery disease with history of myocardial infarction and strong family history of myocardial infarction. PLAN: Discontinue IV fluids. Continue current antihypertensive regimen. Consider adding diuretics down the road if blood pressure is uncontrolled. Check renal aldosterone level as well as plasma free metanephrines and TSH. Thank you for this consultation. Will continue to follow the patient with you during her hospitalization. MMODL / IJN: [id number] /
[2021-01-04 20:39] LABS: Glucose,Whole Blood 121 mg/dL (75-99)
[2021-01-04] MEDS: ATORVASTATIN 80 MG TAB PO SCH (20:48)
[2021-01-04] MEDS: metroNIDAZOLE 500 MG TAB PO SCH (20:48)
[2021-01-05] MEDS: ACETAMINOPHEN TAB 325 MG TAB PO PRN ×2 (00:30→13:36)
[2021-01-05] MEDS: metroNIDAZOLE 500 MG TAB PO SCH ×3 (03:10→21:27)
[2021-01-05 06:22] LABS: Glucose,Whole Blood 126 mg/dL (75-99)
[2021-01-05] MEDS: METOCLOPRAMIDE 5 MG TAB PO SCH ×4 (06:57→21:28)
[2021-01-05] MEDS: INSULIN ASPART (NovoLOG) 100 UNIT/ML VIAL SQ SCH ×4 (06:57→21:27)
[2021-01-05] MEDS: GABAPENTIN 300 MG CAP PO SCH ×3 (06:57→21:28)
[2021-01-05] MEDS: LEVOTHYROXINE 88 MCG TAB PO SCH (06:57)
[2021-01-05] MEDS: carvediloL 6.25 MG TAB PO SCH ×2 (08:37→17:50)
[2021-01-05] MEDS: ISOSORBIDE MONONITRATE ER 30 MG TAB.ER.24H PO SCH (08:50)
[2021-01-05] MEDS: CLOPIDOGREL 75 MG TAB PO SCH (08:50)
[2021-01-05] MEDS: amLODIPine 5 MG TAB PO SCH (08:50)
[2021-01-05] MEDS: DOXAZOSIN 4 MG TAB PO SCH (08:50)
[2021-01-05] MEDS: TAMSULOSIN 0.4 MG CAP.ER.24H PO SCH (08:50)
[2021-01-05] MEDS: predniSONE 10 MG TAB PO SCH (08:50)
[2021-01-05] MEDS: LOSARTAN 25 MG TAB PO SCH (08:50)
[2021-01-05] MEDS: PANTOPRAZOLE 40 MG TABLET PO SCH (08:50)
[2021-01-05] MEDS: ASPIRIN 81 MG PO SCH (08:50)
[2021-01-05] MEDS: EZETIMIBE 10 MG TAB PO SCH (08:51)
[2021-01-05] MEDS ORDERED: fentaNYL (PF) 50 MCG/ML 2 ML AMP ONE (10:13)
[2021-01-05] MEDS: BENZOCAINE SPRAY 1 CAN MUCOUS MEM ONE ×2 (10:30→10:35)
[2021-01-05] MEDS ORDERED: LIDOCAINE 1% INJ 10MG/ML (20 ML MDV) ONE (10:33)
[2021-01-05] MEDS ORDERED: IV FLUID CONTINUATION 1,000 ML IV ONE (10:34)
[2021-01-05] MEDS ORDERED: MIDAZOLAM 2 MG/2 ML VIAL IVP ONE ×2 (10:35→10:40)
[2021-01-05] MEDS ORDERED: fentaNYL (PF) 50 MCG/ML 2 ML AMP IVP ONE (10:35)
--- NOTE | 2021-01-05 11:06 | P.TEE ---
Indications for Procedure(s): Rule out Cardec source of emboli Date of Procedure: 01/05/21 Preoperative Diagnosis: TIA Postoperative Diagnosis: Presence of PFO Description of Procedure(s): INDICATION: This is a 70-year-old female with history of ischemic heart disease with previous stent placement, hypertension and obesity who was admitted to the hospital with symptoms size to of TIA. Patient was evaluated by neurology and a SOFIYA examination is requested. Patient also has a loop recorder which did not reveal any evidence of atrial fibrillation CONSENT: Informed verbal consent is obtained from the patient's PROCEDURE: Patient was brought to the lab in a fasting state. She was given IV Versed 2.5 mg and 50 g of fentanyl. A lubricated Omni probe was introduced into the oropharynx and was advanced into the esophagus. Multiple views were obtained from the esophagus and stomach. Color, pulsed and continuous-wave Doppler studies were performed. Saline contrast bubble injection is performed. Patient tolerated the procedure well. No immediate complications FINDINGS: . The aortic valve is tricuspid with normal function. Mitral valve is bicuspid with normal function and evidence of trace mitral regurgitation. Tricuspid valve appeared to be normal. The left atrial appendage is small and free of any clot. The interatrial septum showed presence of spontaneous [id number] shunt suggestive of presence of PFO. Injection of the saline contrast bubbles showed crossing of the bubbles across the interatrial septum. Left ankle function appeared within normal. IMPRESSION: #1. PFO #2. Left atrial appendage is free of any clot. #3. Normal valve function. #4. Normal left ankle function. #5. Injection of the saline contrast bubbles showed crossing of the bubbles across the interatrial septum PLAN: Continue current medical therapy. Consider anticoagulation/PFO closure.
[2021-01-05] MEDS ORDERED: LIDOCAINE 1% INJ 10MG/ML (20 ML MDV) SQ ONE (11:14)
[2021-01-05] MEDS ORDERED: [UNRECOGNIZED DRUG - REMARK] IV ONE (11:18)
--- NOTE | 2021-01-05 11:37 | P.PCN ---
Date of Procedure: 01/05/21 Preoperative Diagnosis: History of loop recorder insertion Postoperative Diagnosis: Removal of loop recorder Procedure(s) Performed: Removal of the loop recorder Description of Procedure: Patient was brought to the lab in a fasting state. She was prepped and draped in the usual fashion. The location of the loop recorder was identified. The loop recorder could not be manually felt. It was viewed under fluoroscopy and was marked. It appears it has migrated inferiorly and also deep. An incision was made parallel to the head of the device and was deepened with blunt dissection. The area was infiltrated with lidocaine prior to the incision. The device was identified and pulled out of the pocket. There were no immediate complications. Patient tolerated the procedure well. The incision was closed in 2 layers. Patient will continue on by mouth antibiotics. She's been be monitored on the telemetry unit. Procedure: Successful explantation of the loop recorder
[2021-01-05 12:10] LABS: Glucose,Whole Blood 118 mg/dL (75-99)
[2021-01-05] MEDS: SODIUM CHLORIDE 0.9% 1,000 ML IV SCH (13:31)
[2021-01-05] MEDS ORDERED: MAGNESIUM CITRATE 296 ML BOTTLE PO ONE (15:48)
--- NOTE | 2021-01-05 15:50 | P.PN ---
Subjective Progress Note Date: 01/05/21 CHIEF COMPLAINT: Left-sided weakness HISTORY OF PRESENT ILLNESS: Patient is a hospital with stroke like symptoms. Surgical service is following in regards to constipation. She only reports a small bowel movement after the enema. She's had decreased appetite. Patient had SOFIYA which did show PFO. She also had a loop recorder removed. Patient states that she did not take the citrate of mag yesterday because she did not want to have bowel movements during her procedures today. She is willing to brad e the citrate of mag at this time. She denies any abdominal pain. Still has no bowel movement. She does feel that her stomach is somewhat bloated. Denies any nausea or vomiting. She's afebrile. PHYSICAL EXAM: VITAL SIGNS: Reviewed. GENERAL: Well-developed in no acute distress. HEENT: No sclera icterus. Extraocular movements grossly intact. Moist buccal mucosa. Head is atraumatic, normocephalic. ABDOMEN: Soft. Mildly distended NEUROLOGIC: Alert and oriented. Cranial nerves II through XII grossly intact. ASSESSMENT: 1. Constipation PLAN: -We'll give citrate of magnesium -Continue supportive care Physician Deckhand Clam Dredge note has been reviewed by physician. Signing provider agrees with the documented findings, assessment, and plan of care. Objective - Vital Signs Vital signs: Vital Signs Temp 98.2 F 01/05/21 11:32 Pulse 72 01/05/21 10:45 Resp 16 01/05/21 11:32 BP 128/60 01/05/21 11:32 Pulse Ox 94 L 01/05/21 11:32 Intake & Output 01/04/21 01/05/21 01/05/21 18:59 06:59 18:59 Intake Total 240 346 Output Total 1000 121 Balance -760 -121 346 Weight 109.9 kg Intake: IV 110 Invasive Line 3 20 Oral 240 236 Output: Urine 1000 121 Other: Voiding Method Toilet Toilet Toilet # Voids 1 1 - Labs CBC & Chem 7: 01/03/21 05:53 01/03/21 05:53 Labs: Abnormal Lab Results - Last 24 Hours (Table) 01/03/21 01/04/21 01/04/21 Range/Units 05:53 17:05 20:37 POC Glucose (mg/dL) 161 H 121 H (75-99) mg/dL Hemoglobin A1c 6.9 H (4.0-6.0) % 01/05/21 01/05/21 Range/Units 06:21 12:06 POC Glucose (mg/dL) 126 H 118 H (75-99) mg/dL Hemoglobin A1c (4.0-6.0) %
--- NOTE | 2021-01-05 15:56 | P.PN ---
Subjective Progress Note Date: 01/05/21 01/05/2021: Patient just returned from SOFIYA. She states she is feeling better. Patient had undergone removal of the loop recorder. Patient states her vision is better and her numbness on left side has improved. She still has mild slurred speech. She continues to have numbness of her hands and forearms, feet in the lower legs, bilaterally. Appears almost in neuropathic fashion. Telemetry monitoring showing sinus rhythm in around 80s. No A. fib. 01/04/2021: The patient was seen for a follow-up. Please refer to Dr. Jere Ríos note for details. Patient's was also present. Patient tells me that her symptoms started on Monday night when she woke up, urinated 6 times, felt clammy, sweaty. She felt lightheaded, couldn't drink and heart was racing and face was red. She took an extra aspirin 81 mg. Her checked her blood pressure at 10 in the morning was 220/110, she took an other aspirin 81 mg, but her called the ambulance and patient was taken to [facility] in [place]. Patient was subsequently transferred to [facility] on 01/02/2021 at 6:27 PM. Patient states that she was noted to be weak on the left side, some slurred speech. Patient was not a candidate for TPA. Patient underwent repeat CTA of head and neck, which again showed no stenosis. No occlusion. EKG shows sinus rhythm with occasional PVCs, left axis deviation, possible anterior infarct, age undetermined. 2-D echo shows sinus rhythm. Technically difficult study with suboptimal views. Left ventricle systolic function is 55-60%. It was a limited study. Patient has received loading dose of Plavix 225 mg yesterday 10:43 AM. Patient today does not notice any significant improvement, as mentioned below. Hemoglobin A1c 6.9 on 12/22/2020, total cholesterol 138, LDL 38.6, HDL 67 and triglycerides 162. At present patient continues to have some slurring was speech, heaviness of the left arm, numbness of bilateral lower limbs and hands bilaterally. Patient says that she feels generalized weakness, not feeling like herself. Sometimes she feels tightness in the chest, burning in the back, left arm feels heavy. Both legs hurt to touch, and her left arm is tender to touch. She feels fatigued weak tired and she feels her body quivers. Also complains of blurred vision. Telemetry monitoring showing sinus bradycardia in the 50s, PVCs, slight SVTs and PACs. Objective - Vital Signs Vital signs: Vital Signs Temp 98.2 F 01/05/21 11:32 Pulse 72 01/05/21 10:45 Resp 16 01/05/21 11:32 BP 128/60 01/05/21 11:32 Pulse Ox 94 L 01/05/21 11:32 Intake & Output 01/04/21 01/05/21 01/05/21 18:59 06:59 18:59 Intake Total 240 346 Output Total 1000 121 Balance -760 -121 346 Weight 109.9 kg Intake: IV 110 Invasive Line 3 20 Oral 240 236 Output: Urine 1000 121 Other: Voiding Method Toilet Toilet Toilet # Voids 1 1 - Exam 01/05/2021: Patient's mental status and orientation is normal. Her speech is more fluent, less slurring, more crisp. No aphasia. On cranial nerve exam her pupils are round and reacting, visual robledo are full, extraocular muscles are intact, face has mild left-sided asymmetry. Tongue protrudes on midline. Palatal elevation sensation normal. On muscle strength testing patient has left pronator drift. The strength appears normal in the arms and legs. Hip flexion not able to be checked, because of back pain but appears symmetric. Sensations are equal now on both sides with no neglect. No ataxia for [id number] testing. Tone and bulk of muscles normal. 01/04/2021: On examination patient is an elderly female, very pleasant, in no acute distress. She has mild slurring with dysarthria, but no aphasia. Patient can name and speak very well. On cranial examination pupils are round and reactive to light, visual robledo are full on confrontation, extraocular muscles are intact with no nystagmus. She has left facial asymmetry, tongue protrudes the midline. Palatal elevation sensation normal, hearing and shoulder shrug normal, facial sensations slightly decreased on the left side of the face. On muscle strength testing there is left pronator drift. The strength is normal in the deltoid, biceps and triceps. Film Editor is 5-on the left. In the lower extremities at hip flexion is 4+5-/4, ankles and knees are normal. Reflexes are 2 in the right upper limb 1+ in the left upper limb. 2 in the lower limbs and plantars are downgoing bilaterally. Sensory to touch is decreased in the left arm and left leg as compared to the right. Patient is mildly ataxic for [id number] on either side. Bulk of muscles normal. On general exam should there is no bruit or murmur, peripheral pulses are present. Abdomen is soft, slightly protuberant. Bulk of muscles normal. - Labs CBC & Chem 7: 01/03/21 05:53 01/03/21 05:53 Labs: Abnormal Lab Results - Last 24 Hours (Table) 01/03/21 01/04/21 01/04/21 Range/Units 05:53 17:05 20:37 POC Glucose (mg/dL) 161 H 121 H (75-99) mg/dL Hemoglobin A1c 6.9 H (4.0-6.0) % 01/05/21 01/05/21 Range/Units 06:21 12:06 POC Glucose (mg/dL) 126 H 118 H (75-99) mg/dL Hemoglobin A1c (4.0-6.0) % Assessment and Plan Assessment: * Recurrent TIAs versus hypertensive encephalopathy, now presented with new left-sided numbness, weakness, slurred speech, possible CVA. Patient has symptoms involving bihemispheric region, therefore need to rule out c ardioembolic source. * Numbness of bilateral hands, feet, somewhat in neuropathic pattern. Pontine i schemia needs to be ruled out. * PFO noted on SOFIYA. * Hypertension, uncontrolled * Diabetes, hemoglobin A1c 6.9 * Hyperlipidemia * Obesity * Obstructive sleep apnea on CPAP * Coronary artery disease, history of MA in 2018 Plan: * Patient underwent SOFIYA today, which revealed PFO. The left atrial appendage is free of any clot. Normal valve function. Injection of the saline contrast bubbles showed crossing of the bubbles across the interatrial septum. * Continue dual antiplatelet medication at this time, and high-dose statins. * Cardiology on board. Appreciate cardiology input. * Patient is status post removal of loop recorder. Await MRI of the brain to evaluate for the type and mechanism of CVA. * Blood pressure 126/58. May keep blood pressure on higher end. Avoid hypot ension. * Hemoglobin A1c 6.9. * Appreciate cardiology input.
--- NOTE | 2021-01-05 16:54 | PN ---
PROGRESS NOTE Patient is seen for followup for uncontrolled hypertension. She is currently being worked up for ongoing numbness and tingling. Patient is being followed by Neurology. Her blood pressure during this hospital stay so far has been very well-controlled, with systolic mostly in the 120s, although I do see a reading of 170 and 180 mmHg on the right arm. All the readings in the left arm have been within range. The patient denies any significant complaints. PHYSICAL EXAMINATION: On examination this morning, blood pressure was 126/66, heart rate 80 per minute. She is afebrile. EXAMINATION OF THE HEART: S1 and S2. EXAMINATION OF LUNGS: Bilateral breath sounds are heard. ABDOMEN: Soft, non-tender. Examination of lower extremities shows no evidence of edema. COUNSELING CASE MANAGER exam is grossly intact. LABS: Labs are not available from today. Serum creatinine was 0.5 yesterday. Potassium was 3.5. ASSESSMENT: 1. Hypertension, uncontrolled prior to admission, mostly well-controlled post hospitalization, with a couple of readings today noted to be high on the right arm. All the blood pressures on the other arm appear to be within range. This may be an inaccurate blood pressure. Workup for secondary causes was ordered and is currently pending, including aldosterone renal level and plasma-free metanephrines. Patient is scheduled to go down for a SOFIYA today. 2. Numbness and tingling, being followed by Neurology, with suggestion of possible ongoing transient ischemic attacks. 3. Type 2 diabetes. 4. Coronary artery disease with history of myocardial infarction and strong family history of coronary artery disease and myocardial infarction. PLAN: Continue off of IV fluids. Continue current medications. Await renal aldosterone levels and plasma-free metanephrines. MMODL / IJN: [id number] /
[2021-01-05 17:06] LABS: Glucose,Whole Blood 198 mg/dL (75-99)
[2021-01-05] MEDS: CEPHALEXIN 500 MG CAP PO SCH ×2 (17:49→21:28)
--- NOTE | 2021-01-05 18:23 | PN ---
PROGRESS NOTE This patient just returned from a SOFIYA. She is feeling better. She took the lower loop recorder out during surgery today. Her vision is better. Numbness on the left side is improved. Mild slurred speech. Numbness in her hands and forearms continues and her lower legs bilaterally, possibly due to neuropathy from cervical lumbar disc disease. She has had no atrial fibrillation. She is in sinus rhythm. She is giving appropriate answers. CARDIOVASCULAR: S1, S2. LUNGS: Clear. Strength is decent; 4/5 in all 4 extremities. palpation, paracervical paralumbar muscles. ASSESSMENT: 1. Hypertensive encephalopathy. 2. Recurrent transient ischemic attacks with new left-sided numbness. 3. PFO noted on SOFIYA. 4. Numbness in bilateral hands, feet in neuropathic pattern. 5. Hypertension. 6. Diabetes mellitus. 7. Dyslipidemia. 8. Obesity. 9. Sleep apnea. 10.Coronary artery disease. There is no clot in her left atrial appendage. She has a PFO, normal valve function. She has crossing above across the interatrial septum. She is going to continue on dual antiplatelet medication, high-dose statins. We are waiting for MRI of the brain. Blood pressure is better. Possibly change her blood thinners and will be sent home in next 24 to 48 hours. MMODL / IJN: [id number] /
[2021-01-05 20:29] LABS: Glucose,Whole Blood 148 mg/dL (75-99)
--- NOTE | 2021-01-05 20:32 | US ---
EXAMINATION TYPE: US venous doppler duplex LE DATE OF EXAM: 01/05/2021 8:01 PM COMPARISON: US right lower extremity October 06, 2020 CLINICAL HISTORY: rule out DVT. Rule out DVT. Pain. Patient on Plavix. SIDE PERFORMED: Bilateral TECHNIQUE: The lower extremity deep venous system is examined utilizing real time linear array sonog jack with graded compression, doppler sonography and color-flow sonography. VESSELS IMAGED: Common Femoral Vein Deep Femoral Vein Greater Saphenous Vein * Femoral Vein Popliteal Vein Small Saphenous Vein * Proximal Calf Veins (* superficial vessels) Limited due to patient body habitus. Right Leg: No evidence of DVT in veins imaged at this time from prox calf veins to CFV/GSV. Left Leg: No evidence of DVT in veins imaged at this time from prox calf veins to CFV/GSV. Suboptimal study due to body habitus. IMPRESSION: Suboptimal study without acute DVT clearly seen in either lower extremity.
[2021-01-05] MEDS: ATORVASTATIN 80 MG TAB PO SCH (21:27)
[2021-01-06] MEDS: ACETAMINOPHEN TAB 325 MG TAB PO PRN ×3 (00:01→20:31)
[2021-01-06] MEDS: metroNIDAZOLE 500 MG TAB PO SCH ×3 (04:07→20:30)
[2021-01-06 06:13] LABS: Glucose,Whole Blood 106 mg/dL (75-99)
[2021-01-06] MEDS: INSULIN ASPART (NovoLOG) 100 UNIT/ML VIAL SQ SCH ×4 (06:21→20:30)
[2021-01-06] MEDS: LEVOTHYROXINE 88 MCG TAB PO SCH (06:22)
[2021-01-06] MEDS: carvediloL 6.25 MG TAB PO SCH ×2 (06:22→16:11)
[2021-01-06] MEDS: METOCLOPRAMIDE 5 MG TAB PO SCH ×4 (06:22→20:30)
[2021-01-06] MEDS: GABAPENTIN 300 MG CAP PO SCH ×3 (06:22→23:03)
[2021-01-06] MEDS: amLODIPine 5 MG TAB PO SCH (09:20)
[2021-01-06] MEDS: ASPIRIN 81 MG PO SCH (09:20)
[2021-01-06] MEDS: EZETIMIBE 10 MG TAB PO SCH (09:20)
[2021-01-06] MEDS: CLOPIDOGREL 75 MG TAB PO SCH (09:20)
[2021-01-06] MEDS: DOXAZOSIN 4 MG TAB PO SCH (09:20)
[2021-01-06] MEDS: predniSONE 10 MG TAB PO SCH (09:20)
[2021-01-06] MEDS: CEPHALEXIN 500 MG CAP PO SCH ×3 (09:20→23:03)
[2021-01-06] MEDS: PANTOPRAZOLE 40 MG TABLET PO SCH (09:20)
[2021-01-06] MEDS: TAMSULOSIN 0.4 MG CAP.ER.24H PO SCH (09:20)
[2021-01-06] MEDS: LOSARTAN 25 MG TAB PO SCH (09:23)
[2021-01-06] MEDS: ISOSORBIDE MONONITRATE ER 30 MG TAB.ER.24H PO SCH (09:23)
[2021-01-06 10:23] LABS: Metanephrines 24 Hour,Urine 104 ug/day (52-341); Normetanephrine 24 Hour,Urine 439 ug/day (88-444); Total Metanephrines 24 Hour,Ur 543 ug/day (140-785)
[2021-01-06 11:51] LABS: Glucose,Whole Blood 155 mg/dL (75-99)
[2021-01-06] MEDS: SODIUM CHLORIDE 0.9% 1,000 ML IV SCH (12:19)
--- NOTE | 2021-01-06 13:12 | P.PN ---
Subjective Progress Note Date: 01/06/21 CHIEF COMPLAINT: Left-sided weakness HISTORY OF PRESENT ILLNESS: Patient is a hospital with TIA like symptoms. Surgical service is following in regards to constipation. Patient does report small bowel movement today. She is passing gas. She denies any abdominal pain. Patient has an MRI of the brain ordered. Patient had SOFIYA which did show PFO. She also had a loop recorder removed. Denies any nausea or vomiting. She's afebrile. PHYSICAL EXAM: VITAL SIGNS: Reviewed. GENERAL: Well-developed in no acute distress. HEENT: No sclera icterus. Extraocular movements grossly intact. Moist buccal m ucosa. Head is atraumatic, normocephalic. ABDOMEN: Soft. Nondistended and nontender NEUROLOGIC: Alert and oriented. Cranial nerves II through XII grossly intact. ASSESSMENT: 1. Constipation PLAN: -Continue supportive care -Recommend Benefiber when patient is discharged -Start MiraLAX daily Physician Ceramic Tile Installation Helper note has been reviewed by physician. Signing provider agrees with the documented findings, assessment, and plan of care. Objective - Vital Signs Vital signs: Vital Signs Temp 97.4 F L 01/06/21 08:00 Pulse 66 01/06/21 12:00 Resp 20 01/06/21 12:00 BP 102/56 01/06/21 12:00 Pulse Ox 95 01/06/21 12:00 Intake & Output 01/05/21 01/06/21 01/06/21 18:59 06:59 18:59 Intake Total 2216 470 250 Output Total 300 Balance 2216 470 -50 Weight 111 kg Intake: IV 120 30 10 Invasive Line 3 30 30 10 Intake, IV Titration 140 Amount Sodium Chloride 0.9% 1, 140 000 ml @ 20 mls/hr IV . Q24H [facility] Rx#:[id number] Oral 2096 300 240 Output: Urine 300 Other: Voiding Method Toilet Toilet Bedside Commode # Voids 1 2 # Bowel Movements 2 1 - Labs CBC & Chem 7: 01/03/21 05:53 01/03/21 05:53 Labs: Abnormal Lab Results - Last 24 Hours (Table) 01/05/21 01/05/21 01/06/21 Range/Units 17:03 20:28 06:12 POC Glucose (mg/dL) 198 H 148 H 106 H (75-99) mg/dL 01/06/21 Range/Units 11:50 POC Glucose (mg/dL) 155 H (75-99) mg/dL
--- NOTE | 2021-01-06 13:47 | P.PN ---
Subjective Progress Note Date: 01/06/21 HISTORY OF PRESENT ILLNESS: 01/03/2021 This is a 70-year-old female with a past medical history significant for diabetes mellitus, GERD, hyperlipidemia, hypertension, TIA, coronary artery disease with previous STEMI in 2018 with PCI to RCA. Patient follows in the office with Dr. Zepeda. We have been asked to see the patient in consultation for hypertension. Patient examined at the bedside. Patient originally presented to [facility] secondary to elevated blood pressure. Patient states she took her blood pressure at home and it was 220/100s. She reports her blood pressure usually runs in the 130s to 140s. She states that she saw her crossing tender on who discontinued her lisinopril and started her on losartan because she was experiencing a cough secondary to the lisinopril. Patient reports left- sided weakness and numbness and tingling in her lips. She also reports some left-sided chest discomfort that she describes as a burning sensation which she reports was similar to her previous heart attack. Patient also reports feeling palpitations over the past few months. No previous history of atrial fibrillation. She reports a history of a loop recorder insertion. She states this was interrogated last month when she was admitted to the hospital for weak ness and hypertension. Patient states she was told there was no arrhythmias or atrial fibrillation noted at that time. Most recent echocardiogram obtained in October 2020 reveals ejection fraction 5 5-60%, mild mitral regurgitation, and mild tricuspid regurgitation. Cardiac catheterization history: Patient underwent cardiac catheterization in May 2018 at [facility] secondary to inferior STEMI. Patient underwent PCI of the proximal RCA which was 99% occluded. Additional findings included 20% ostial LAD, 10% proximal LAD, 20% mid LAD. Left circumflex: Codominant artery, at the bifurcation site of the OM and the left circumflex, though left circumflex shows a borderline 4050 percent lesion, this vessel is of small size and not at target for intervention. The OM branch which is a sizable branch was a 20% diffuse proximal stenosis. The patient had abnormal stress test in October 2020. This was reviewed by Dr. Nagel during her previous hospitalization in November [address] Nagel suggested that the patient may have had some progression of the lesion in the circumflex which may account for her abnormal stress test. EKG reveals sinus mechanism with PVCs. Left axis deviation. Chest xray completed at outside facility was negative for acute process Laboratory data: WBC 6.54. Hemoglobin 12.4. Platelet count 166. Sodium 143. Potassium 3.5. BUN 7. Creatinine 0.5. Troponin negative 1 Current home cardiac medications include carvedilol 6.25 mg daily, aspirin 81 mg daily, losartan 25 mg daily, amlodipine 5 mg daily, Imdur 30 mg daily, Zetia 10 mg daily, Cardura 4 mg daily, and Lipitor 40 mg daily. 01/04/2021 Patient examined this morning at the bedside. She continues to report left- sided numbness. She denies chest pain or pressure. Denies shortness of breath. Limited echo completed revealing ejection fraction 55-60% 01/06/2021 Cardiology personally spoke with [facility] rep yesterday regarding loop recorder interrogation. Device rep states there was no evidence of atrial fibrillation upon interrogation. Patient examined this morning. She is sitting up in the chair. She underwent SOFIYA yesterday revealing small PFO. She also underwent removal of loop recorder. Lower extremity Doppler negative for DVT. She is scheduled for MRI today. She is reporting burning of left sided chest that has been ongoing for the past few weeks. PHYSICAL EXAM: VITAL SIGNS: Reviewed. GENERAL: Well-developed in no acute distress. HEENT: Head is normocephalic. Pupils are equal, round. Sclerae anicteric. Mucous membranes of the mouth are moist. Neck supple. No JVD or thyromegaly LUNGS: Respirations even and unlabored. Lungs essentially clear to auscultation bilaterally. HEART: Regular rate and rhythm. S1 and S2 heard. ABDOMEN: Soft. Nondistended. Nontender. EXTREMITIES: Left-sided weakness. No clubbing or cyanosis. Peripheral pulses intact. No lower extremity edema NEUROLOGIC: Awake and alert. Oriented x 3. ASSESSMENT: Hypertensive emergency Left-sided weakness with left-sided facial numbness, suspect CVA Coronary artery disease with PCI to RCA, May 2018 Palpitations with history of loop recorder insertion History of TIA 2 Hyperlipidemia Diabetes mellitus Sleep apnea with CPAP use Morbid obesity: BMI 43.4 Status post SOFIYA revealing small PFO Status post removal of loop recorder PLAN: Monitor blood pressure Continue current cardiac medications Neurology following. Patient to have MRI completed today. Await further recommendations from neurology regarding anticoagulation versus PFO closure Further recommendations pending patient's course Nurse practitioner note has been reviewed by physician. Signing provider agrees with the documented findings, assessment, and plan of care. Objective - Vital Signs Vital signs: Vital Signs Temp 97.4 F L 01/06/21 08:00 Pulse 66 01/06/21 12:00 Resp 20 01/06/21 12:00 BP 102/56 01/06/21 12:00 Pulse Ox 95 01/06/21 12:00 Intake & Output 01/05/21 01/06/21 01/06/21 18:59 06:59 18:59 Intake Total 2216 470 250 Output Total 300 Balance 2216 470 -50 Weight 111 kg Intake: IV 120 30 10 Invasive Line 3 30 30 10 Intake, IV Titration 140 Amount Sodium Chloride 0.9% 1, 140 000 ml @ 20 mls/hr IV . Q24H [facility] Rx#:[id number] Oral 2096 300 240 Output: Urine 300 Other: Voiding Method Toilet Toilet Bedside Commode # Voids 1 2 # Bowel Movements 2 1 - Labs CBC & Chem 7: 01/03/21 05:53 01/03/21 05:53 Labs: Abnormal Lab Results - Last 24 Hours (Table) 01/05/21 01/05/21 01/06/21 Range/Units 17:03 20:28 06:12 POC Glucose (mg/dL) 198 H 148 H 106 H (75-99) mg/dL 01/06/21 Range/Units 11:50 POC Glucose (mg/dL) 155 H (75-99) mg/dL
--- NOTE | 2021-01-06 14:09 | XR ---
EXAMINATION TYPE: XR chest 2V DATE OF EXAM: 01/06/2021 COMPARISON: 12/21/2020 HISTORY: 70-year-old female MRI clearance TECHNIQUE: Frontal and lateral views FINDINGS: Heart normal size. Aorta and pulmonary vasculature within normal limits. Mild patchy density in the p eriphery of the left base likely atelectasis. No consolidation or pleural effusion otherwise seen. No retained epicardial pacer leads. Cholecystectomy clips. IMPRESSION: Chronic changes without acute cardiopulmonary process. No retained pacer leads seen. Clear for MRI.
--- NOTE | 2021-01-06 14:25 | PN ---
PROGRESS NOTE The patient is seen for followup for hypertension with episodes of uncontrolled hypertension. Workup for secondary causes was ordered and it is currently pending. Blood pressure has been well controlled. Systolic blood pressure has been anywhere from 102-130 mmHg systolic. Overall, patient still complains of some numbness and tingling. Otherwise, no other complaints of nausea, vomiting, chest pains or shortness of breath. PHYSICAL EXAMINATION: On examination, . She is afebrile. EXAMINATION OF THE HEART: S1 and S2. EXAMINATION OF THE LUNGS: Bilateral breath sounds are heard. Abdomen is soft, nontender. Examination of lower extremities shows no evidence of edema. HOSPICE CARE CONSULTANT exam grossly intact. Patient moving all 4 extremities. ASSESSMENT: 1. Hypertension with episodes of uncontrolled hypertension. Workup for secondary causes currently pending. Blood pressure currently very well controlled. Continue off of IV fluids. 2. Recurrent transient ischemic attack with new left-sided numbness. 3. Patent foramen ovale noted on SOFIYA, maintained on antiplatelet agents and statins. PLAN: No changes in antihypertensive regimen at this point. MMODL / IJN: [id number] /
--- NOTE | 2021-01-06 15:15 | MR ---
MR brain without contrast HISTORY: Left-sided weakness and numbness, stroke Multiplanar multisequence imaging through the brain Correlation to CT brain 12/22/2020 There is no restricted diffusion. There is no hemorrhage or hydrocephalus. Corpus callosum, pituitary , cervical medullary junction, cerebellopontine angles are normal. There are normal vascular flow voi ds present. Orbits show symmetric appearance. Mastoid air cells, paranasal sinuses are well aerated. Scattered deep white matter hyperintensities are present in the periventricular, subcortical white ma tter, approximately 10 lesions are present, largest is present within the anterior limb of the international freight forwarder al capsule on the left measuring proximately 7 mm, axial image 15. Cortical atrophy is again seen. IMPRESSION: Age-related changes of atrophy and chronic small vessel ischemia. No subacute ischemia.
[2021-01-06] MEDS: polyethylene glycoL 3350 17 GM POWD.PACK PO SCH (16:07)
[2021-01-06 16:47] LABS: Glucose,Whole Blood 175 mg/dL (75-99)
--- NOTE | 2021-01-06 16:53 | P.PN ---
Subjective Progress Note Date: 01/06/21 01/06/2021: Patient just returned back from MRI. Patient's was also present. Patient states that she is feeling slightly more better. No new focal symptoms. No headaches. No syncopal spells. 01/05/2021: Patient just returned from SOFIYA. She states she is feeling better. Patient had undergone removal of the loop recorder. Patient states her vision is better and her numbness on left side has improved. She still has mild slurred speech. She continues to have numbness of her hands and forearms, feet in the lower legs, bilaterally. Appears almost in neuropathic fashion. Telemetry monitoring showing sinus rhythm in around 80s. No A. fib. 01/04/2021: The patient was seen for a follow-up. Please refer to Dr. Jere Ríos note for details. Patient's was also present. Patient tells me that her symptoms started on Monday night when she woke up, urinated 6 times, felt clammy, sweaty. She felt lightheaded, couldn't drink and heart was racing and face was red. She took an extra aspirin 81 mg. Her checked her blood pressure at 10 in the morning was 220/110, she took another aspirin 81 mg, but her called the ambulance and patient was taken to [facility] in [place]. Patient was subsequently transferred to [facility] on 01/02/2021 at 6:27 PM. Patient states that she was noted to be weak on the left side, some slurred speech. Patient was not a candidate for TPA. Patient underwent repeat CTA of head and neck, which again showed no stenosis. No occlusion. EKG shows sinus rhythm with occasional PVCs, left axis deviation, possible anterior infarct, age undetermined. 2-D echo shows sinus rhythm. Technically difficult study with suboptimal views. Left ventricle systolic function is 55-60%. It was a limited study. Patient has received loading dose of Plavix 225 mg yesterday 10:43 AM. Patient today does not notice any significant improvement, as mentioned below. Hemoglobin A1c 6.9 on 12/22/2020, total cholesterol 138, LDL 38.6, HDL 67 and triglycerides 162. At present patient continues to have some slurring was speech, heaviness of the left arm, numbness of bilateral lower limbs and hands bilaterally. Patient says that she feels generalized weakness, not feeling like herself. Sometimes she feels tightness in the chest, burning in the back, left arm feels heavy. Both legs hurt to touch, and her left arm is tender to touch. She feels fatigued weak tired and she feels her body quivers. Also complains of blurred vision. Telemetry monitoring showing sinus bradycardia in the 50s, PVCs, slight SVTs and PACs. Objective - Vital Signs Vital signs: Vital Signs Temp 97.4 F L 01/06/21 08:00 Pulse 66 01/06/21 12:00 Resp 20 01/06/21 12:00 BP 102/56 01/06/21 12:00 Pulse Ox 95 01/06/21 12:00 Intake & Output 01/05/21 01/06/21 01/06/21 18:59 06:59 18:59 Intake Total 2216 470 250 Output Total 300 Balance 2216 470 -50 Weight 111 kg Intake: IV 120 30 10 Invasive Line 3 30 30 10 Intake, IV Titration 140 Amount Sodium Chloride 0.9% 1, 140 000 ml @ 20 mls/hr IV . Q24H [facility] Rx#:[id number] Oral 2096 300 240 Output: Urine 300 Other: Voiding Method Toilet Toilet Bedside Commode # Voids 1 2 # Bowel Movements 2 1 - Exam 01/06/2021: Patient's mental status, speech and leg which sounds are normal. Her speech is more clear. Minimal dysarthria. On cranial examination pupils are round and reacting to light, visual robledo are full, extraocular muscles are intact, face has mild left-sided asymmetry. Tongue protrudes to the midline. Palatal elevation is normal. On muscle strength testing patient has left pronator drift. The strength is normal in the arms and legs except left shirt maker is 5-as compared to the right, but has been present even on the last admission. Sensations patient was feeling less on the left side as compared to the right. No ataxia. 01/05/2021: Patient's mental status and orientation is normal. Her speech is more fluent, less slurring, more crisp. No aphasia. On cranial nerve exam her pupils are round and reacting, visual robledo are full, extraocular muscles are intact, face has mild left-sided asymmetry. Tongue protrudes on midline. Palatal elevation sensation normal. On muscle strength testing patient has left pronator drift. The strength appears normal in the arms and legs. Hip flexion not able to be checked, because of back pain but appears symmetric. Sensations are equal now on both sides with no neglect. No ataxia for [id number] testi ng. Tone and bulk of muscles normal. 01/04/2021: On examination patient is an elderly female, very pleasant, in no acute distress. She has mild slurring with dysarthria, but no aphasia. Patient can name and speak very well. On cranial examination pupils are round and reactive to light, visual robledo are full on confrontation, extraocular muscles are intact with no nystagmus. She has left facial asymmetry, tongue protrudes the midline. Palatal elevation sensation normal, hearing and shoulder shrug normal, facial sensations slightly decreased on the left side of the face. On muscle strength testing there is left pronator drift. The strength is normal in the deltoid, biceps and triceps. Restaurant Kitchen And Service Manager is 5-on the left. In the lower extremities at hip flexion is 4+5-/4, ankles and knees are normal. Reflexes are 2 in the right upper limb 1+ in the left upper limb. 2 in the lower limbs and plantars are downgoing bilaterally. Sensory to touch is decreased in the left arm and left leg as compared to the right. Patient is mildly ataxic for [id number] on either side. Bulk of muscles normal. On general exam should there is no bruit or murmur, peripheral pulses are present. Abdomen is soft, slightly protuberant. Bulk of muscles normal. 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 Patient has symptoms involving bihemispheric region, therefore need to rule out cardioembolic source. MRI of the brain negative for any acute stroke. * Numbness of bilateral hands, feet, somewhat in neuropathic pattern. Pontine stroke ruled out. * PFO noted on SOFIYA. * Hypertension, uncontrolled * Diabetes, hemoglobin A1c 6.9 * Hyperlipidemia * Obesity * Obstructive sleep apnea on CPAP * Coronary artery disease, history of [place] in 2018 Plan: * MRI of the brain performed today revealed age-related changes of atrophy and chronic small vessel ischemia. No acute or subacute ischemia. Some small v essel ischemic disease noted. The pattern of white matter lesions is not typical of multiple sclerosis. * SOFIYA 01/05/2021 revealed PFO. The left atrial appendage is free of any clot. Normal valve function. Injection of the saline contrast bubbles showed crossing of the bubbles across the interatrial septum. * Continue dual antiplatelet medication at this time, and high-dose statins. * Cardiology on board. Appreciate cardiology input. * Patient is status post removal of loop recorder. * May treat blood pressure aggressively, to target blood pressure <130/80 * Hemoglobin A1c 6.9. * Patient interested in PFO closure. Will discuss with the cardiology. * PT and OT.
--- NOTE | 2021-01-06 17:05 | PN ---
PROGRESS NOTE This patient is a 70-year-old white female who had a brain MRI which showed no strokes, though multiple white lesions suspicious for possible some MS. She was seen by Surgery for chronic constipation and for chronic renal disease. Cardiology has seen her also. No changes in the antihypertension medicines were given. She has a PFO. She went to heart catheterization supposedly sometime today to fix the PFO and her atrium. She will need to stay on Plavix for 30 days and then aspirin for 6 months. CARDIOVASCULAR: S1, S2. LUNGS: Clear. GI: Soft. Distended. HEMATOLOGY: Negative Homans. ASSESSMENT: 1. PFO. 2. Prior stroke is ruled out. 3. Possible MS will have to be ruled out. Fixing PFO will have to be ruled out. Continue Plavix and aspirin. MMODL / IJN: [id number] /
[2021-01-06 20:07] LABS: Glucose,Whole Blood 201 mg/dL (75-99)
[2021-01-06] MEDS: ATORVASTATIN 80 MG TAB PO SCH (20:30)
[2021-01-07] MEDS: metroNIDAZOLE 500 MG TAB PO SCH ×3 (04:58→20:32)
[2021-01-07] MEDS: GABAPENTIN 300 MG CAP PO SCH ×3 (05:03→22:44)
[2021-01-07 05:55] LABS: Glucose,Whole Blood 123 mg/dL (75-99)
[2021-01-07] MEDS: INSULIN ASPART (NovoLOG) 100 UNIT/ML VIAL SQ SCH ×4 (06:08→20:32)
[2021-01-07] MEDS: METOCLOPRAMIDE 5 MG TAB PO SCH ×4 (06:18→20:31)
[2021-01-07] MEDS: LEVOTHYROXINE 88 MCG TAB PO SCH (06:18)
[2021-01-07] MEDS: carvediloL 6.25 MG TAB PO SCH ×2 (06:18→16:32)
[2021-01-07] MEDS: amLODIPine 5 MG TAB PO SCH (09:52)
[2021-01-07] MEDS: CLOPIDOGREL 75 MG TAB PO SCH (09:52)
[2021-01-07] MEDS: LOSARTAN 25 MG TAB PO SCH (09:52)
[2021-01-07] MEDS: ISOSORBIDE MONONITRATE ER 30 MG TAB.ER.24H PO SCH (09:52)
[2021-01-07] MEDS: ASPIRIN 81 MG PO SCH (09:52)
[2021-01-07] MEDS: DOXAZOSIN 4 MG TAB PO SCH (09:52)
[2021-01-07] MEDS: TAMSULOSIN 0.4 MG CAP.ER.24H PO SCH (09:52)
[2021-01-07] MEDS: predniSONE 10 MG TAB PO SCH (09:52)
[2021-01-07] MEDS: PANTOPRAZOLE 40 MG TABLET PO SCH (09:53)
[2021-01-07] MEDS: EZETIMIBE 10 MG TAB PO SCH (09:53)
[2021-01-07] MEDS: CEPHALEXIN 500 MG CAP PO SCH ×3 (09:53→22:44)
[2021-01-07] MEDS: polyethylene glycoL 3350 17 GM POWD.PACK PO SCH (09:54)
[2021-01-07] MEDS ORDERED: NITROGLYCERIN SL TABS 0.4 MG TAB SUBLINGUAL PRN (10:47)
[2021-01-07] MEDS ORDERED: ALPRAZolam 0.5 MG TAB PO PRN (10:47)
[2021-01-07] MEDS ORDERED: ALPRAZolam 0.25 MG TAB PO PRN (10:47)
[2021-01-07 12:19] LABS: Glucose,Whole Blood 128 mg/dL (75-99)
[2021-01-07] MEDS: ACETAMINOPHEN TAB 325 MG TAB PO PRN (12:41)
--- NOTE | 2021-01-07 12:53 | P.PN ---
Subjective Progress Note Date: 01/07/21 CHIEF COMPLAINT: Left-sided weakness HISTORY OF PRESENT ILLNESS: Patient is a hospital with TIA like symptoms. Surgical service is following in regards to constipation. Patient reports that she's had multiple bowel movements through the night. She is passing gas. Her abdominal bloating has decreased. She denies any abdominal pain. She denies any nausea or vomiting. Patient had SOFIYA which did show PFO. She also had a loop recorder removed. Denies any nausea or vomiting. Patient is followed by neurology regarding her TIA like symptoms. She's afebrile. PHYSICAL EXAM: VITAL SIGNS: Reviewed. GENERAL: Well-developed in no acute distress. HEENT: No sclera icterus. Extraocular movements grossly intact. Moist buccal mucosa. Head is atraumatic, normocephalic. ABDOMEN: Soft. Nondistended and nontender NEUROLOGIC: Alert and oriented. Cranial nerves II through XII grossly intact. ASSESSMENT: 1. Constipation PLAN: -Continue supportive care -Recommend Benefiber when patient is discharged -Continue MiraLAX daily Physician World Geography Teacher note has been reviewed by physician. Signing provider agrees with the documented findings, assessment, and plan of care. Objective - Vital Signs Vital signs: Vital Signs Temp 97.8 F 01/07/21 12:00 Pulse 79 01/07/21 12:00 Resp 18 01/07/21 12:00 BP 115/63 01/07/21 12:00 Pulse Ox 95 01/07/21 12:00 Intake & Output 01/06/21 01/07/21 01/07/21 18:59 06:59 18:59 Intake Total 510 240 Output Total 700 Balance -190 240 Weight 101 kg Intake: IV 30 Invasive Line 3 30 Oral 480 240 Output: Urine 700 Other: Voiding Method Bedside Commode Bedside Commode # Voids 1 2 # Bowel Movements 1 1 - Labs CBC & Chem 7: 01/03/21 05:53 01/03/21 05:53 Labs: Abnormal Lab Results - Last 24 Hours (Table) 01/04/21 01/06/21 01/06/21 Range/Units 17:29 16:46 20:06 POC Glucose (mg/dL) 175 H 201 H (75-99) mg/dL Renin Direct 85.1 H (3.1 - 57.1) pg/mL 01/07/21 01/07/21 Range/Units 05:54 12:18 POC Glucose (mg/dL) 123 H 128 H (75-99) mg/dL Renin Direct (3.1 - 57.1) pg/mL
--- NOTE | 2021-01-07 13:25 | P.PN ---
Subjective Progress Note Date: 01/07/21 HISTORY OF PRESENT ILLNESS: 01/03/2021 This is a 70-year-old female with a past medical history significant for diabetes mellitus, GERD, hyperlipidemia, hypertension, TIA, coronary artery disease with previous STEMI in 2018 with PCI to RCA. Patient follows in the office with Dr. Zepeda. We have been asked to see the patient in consultation for hypertension. Patient examined at the bedside. Patient originally presented to [facility] secondary to elevated blood pressure. Patient states she took her blood pressure at home and it was 220/100s. She reports her blood pressure usually runs in the 130s to 140s. She states that she saw her inspector canned food reconditioning on who discontinued her lisinopril and started her on losartan because she was experiencing a cough secondary to the lisinopril. Patient reports left- sided weakness and numbness and tingling in her lips. She also reports some left-sided chest discomfort that she describes as a burning sensation which she reports was similar to her previous heart attack. Patient also reports feeling palpitations over the past few months. No previous history of atrial fibrillation. She reports a history of a loop recorder insertion. She states this was interrogated last month when she was admitted to the hospital for weak ness and hypertension. Patient states she was told there was no arrhythmias or atrial fibrillation noted at that time. Most recent echocardiogram obtained in October 2020 reveals ejection fraction 5 5-60%, mild mitral regurgitation, and mild tricuspid regurgitation. Cardiac catheterization history: Patient underwent cardiac catheterization in May 2018 at [facility] secondary to inferior STEMI. Patient underwent PCI of the proximal RCA which was 99% occluded. Additional findings included 20% ostial LAD, 10% proximal LAD, 20% mid LAD. Left circumflex: Codominant artery, at the bifurcation site of the OM and the left circumflex, though left circumflex shows a borderline 4050 percent lesion, this vessel is of small size and not at target for intervention. The OM branch which is a sizable branch was a 20% diffuse proximal stenosis. The patient had abnormal stress test in October 2020. This was reviewed by Dr. Nagel during her previous hospitalization in November [address] Nagel suggested that the patient may have had some progression of the lesion in the circumflex which may account for her abnormal stress test. EKG reveals sinus mechanism with PVCs. Left axis deviation. Chest xray completed at outside facility was negative for acute process Laboratory data: WBC 6.54. Hemoglobin 12.4. Platelet count 166. Sodium 143. Potassium 3.5. BUN 7. Creatinine 0.5. Troponin negative 1 Current home cardiac medications include carvedilol 6.25 mg daily, aspirin 81 mg daily, losartan 25 mg daily, amlodipine 5 mg daily, Imdur 30 mg daily, Zetia 10 mg daily, Cardura 4 mg daily, and Lipitor 40 mg daily. 01/04/2021 Patient examined this morning at the bedside. She continues to report left- sided numbness. She denies chest pain or pressure. Denies shortness of breath. Limited echo completed revealing ejection fraction 55-60% 01/06/2021 Cardiology personally spoke with [facility] rep yesterday regarding loop recorder interrogation. Device rep states there was no evidence of atrial fibrillation upon interrogation. Patient examined this morning. She is sitting up in the chair. She underwent SOFIYA yesterday revealing small PFO. She also underwent removal of loop recorder. Lower extremity Doppler negative for DVT. She is scheduled for MRI today. She is reporting burning of left sided chest that has been ongoing for the past few weeks. 01/07/2021 Patient examined this morning. She is sitting up in the chair. She underwent brain MRI yesterday revealing age-related changes of atrophy and chronic small vessel ischemia. No subacute ischemia. Patient continues to report a burning sensation on the left side of her chest. She is requesting to undergo cardiac catheterization. She also discussed PFO closure versus anticoagulation with neurology and is interested in PFO closure. PHYSICAL EXAM: VITAL SIGNS: Reviewed. GENERAL: Well-developed in no acute distress. HEENT: Head is normocephalic. Pupils are equal, round. Sclerae anicteric. Mucous membranes of the mouth are moist. Neck supple. No JVD or thyromegaly LUNGS: Respirations even and unlabored. Lungs essentially clear to auscultation bilaterally. HEART: Regular rate and rhythm. S1 and S2 heard. ABDOMEN: Soft. Nondistended. Nontender. EXTREMITIES: Left-sided weakness. No clubbing or cyanosis. Peripheral pulses intact. No lower extremity edema NEUROLOGIC: Awake and alert. Oriented x 3. ASSESSMENT: Hypertensive emergency Left-sided weakness with left-sided facial numbness, suspect CVA, however MRI of the brain negative for acute stroke Coronary artery disease with PCI to RCA, May 2018 Palpitations with history of loop recorder insertion History of TIA 2 Hyperlipidemia Diabetes mellitus Sleep apnea with CPAP use Morbid obesity: BMI 43.4 Status post SOFIYA revealing small PFO Status post removal of loop recorder PLAN: Monitor blood pressure Continue current cardiac medications Neurology following Patient requesting PFO closure. Case discussed with Dr. Dutta who will evaluate patient Patient continues to report a burning sensation over the left side of her chest and is requesting cardiac catheterization to be performed. Case discussed with Dr. Zepeda who is agreeable to cardiac catheterization. Patient will be scheduled for cardiac catheterization tomorrow with Dr. Zepeda Further recommendations pending patient's course Nurse practitioner note has been reviewed by physician. Signing provider agrees with the documented findings, assessment, and plan of care. Objective - Vital Signs Vital signs: Vital Signs Temp 97.8 F 01/07/21 12:00 Pulse 79 01/07/21 12:00 Resp 18 01/07/21 12:00 BP 115/63 01/07/21 12:00 Pulse Ox 95 01/07/21 12:00 Intake & Output 01/06/21 01/07/21 01/07/21 18:59 06:59 18:59 Intake Total 510 240 Output Total 700 Balance -190 240 Weight 101 kg Intake: IV 30 Invasive Line 3 30 Oral 480 240 Output: Urine 700 Other: Voiding Method Bedside Commode Bedside Commode # Voids 1 2 # Bowel Movements 1 1 - Labs CBC & Chem 7: 01/03/21 05:53 01/03/21 05:53 Labs: Abnormal Lab Results - Last 24 Hours (Table) 01/04/21 01/06/21 01/06/21 Range/Units 17:29 16:46 20:06 POC Glucose (mg/dL) 175 H 201 H (75-99) mg/dL Renin Direct 85.1 H (3.1 - 57.1) pg/mL 01/07/21 01/07/21 Range/Units 05:54 12:18 POC Glucose (mg/dL) 123 H 128 H (75-99) mg/dL Renin Direct (3.1 - 57.1) pg/mL
--- NOTE | 2021-01-07 13:54 | P.PN ---
Subjective Progress Note Date: 01/07/21 01/07/2021: Patient states she is feeling better than yesterday her speech has improved. Continues to have blurred vision. Patient states that her left arm always have been weak since she had a first mini stroke 5 years ago. Patient is undergoing cardiac catheterization tomorrow as per patient. Her blood pressure is well-controlled 115/54. Telemetry monitoring showing sinus rhythm in the 60s and 70s. Her colitis that was diagnosed on last admission has improved. 01/06/2021: Patient just returned back from MRI. Patient's was also present. Patient states that she is feeling slightly more better. No new focal symptoms. No headaches. No syncopal spells. 01/05/2021: Patient just returned from SOFIYA. She states she is feeling better. Patient had undergone removal of the loop recorder. Patient states her vision is better and her numbness on left side has improved. She still has mild slurred speech. She continues to have numbness of her hands and forearms, feet in the lower legs, bilaterally. Appears almost in neuropathic fashion. Telemetry monitoring showing sinus rhythm in around 80s. No A. fib. 01/04/2021: The patient was seen for a follow-up. Please refer to Dr. Jere Ríos note for details. Patient's was also present. Patient tells me that her symptoms started on Monday night when she woke up, urinated 6 times, felt clammy, sweaty. She felt lightheaded, couldn't drink and heart was racing and face was red. She took an extra aspirin 81 mg. Her h usband checked her blood pressure at 10 in the morning was 220/110, she took another aspirin 81 mg, but her called the ambulance and patient was taken to [facility] in [place]. Patient was subsequently transferred to [facility] on 01/02/2021 at 6:27 PM. Patient states that she was noted to be weak on the left side, some slurred speech. Patient was not a candidate for TPA. Patient underwent repeat CTA of head and neck, which again showed no stenosis. No occlusion. EKG shows sinus rhythm with occasional PVCs, left axis deviation, possible anterior infarct, age undetermined. 2-D echo shows sinus rhythm. Technically difficult study with suboptimal views. Left ventricle systolic function is 55-60%. It was a limited study. Patient has received loading dose of Plavix 225 mg yesterday 10:43 AM. Patient today does not notice any significant improvement, as mentioned below. Hemoglobin A1c 6.9 on 12/22/2020, total cholesterol 138, LDL 38.6, HDL 67 and triglycerides 162. At present patient continues to have some slurring was speech, heaviness of the left arm, numbness of bilateral lower limbs and hands bilaterally. Patient says that she feels generalized weakness, not feeling like herself. Sometimes she feels tightness in the chest, burning in the back, left arm feels heavy. Both legs hurt to touch, and her left arm is tender to touch. She feels fatigued weak tired and she feels her body quivers. Also complains of blurred vision. Telemetry monitoring showing sinus bradycardia in the 50s, PVCs, slight SVTs and PACs. Objective - Vital Signs Vital signs: Vital Signs Temp 97.8 F 01/07/21 12:00 Pulse 79 01/07/21 12:00 Resp 18 01/07/21 12:00 BP 115/63 01/07/21 12:00 Pulse Ox 95 01/07/21 12:00 Intake & Output 01/06/21 01/07/21 01/07/21 18:59 06:59 18:59 Intake Total 510 240 Output Total 700 Balance -190 240 Weight 101 kg Intake: IV 30 Invasive Line 3 30 Oral 480 240 Output: Urine 700 Other: Voiding Method Bedside Commode Bedside Commode # Voids 1 2 # Bowel Movements 1 1 - Exam Patient's mental status, speech and language functions are normal. Patient hardly has any dysarthria, probably baseline. On cranial exam showed pupils are round and reacting, visual robledo are full, extraocular muscles are intact. She has no facial droop noticed, very slight left-sided asymmetry, which is probably her baseline. Tongue protrudes the midline. On muscle strength testing patient has left pronator drift. Patient has slight weakness of the left substation operator helper generation, and left deltoid, which is probably baseline. Strength is equal in the legs. Sensations are equal in the arms with no neglect. No ataxia. Tone and bulk of muscles normal. 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 Probable reversible ischemic neurologic deficit. MRI of the brain negative for any acute stroke. * Numbness of bilateral hands, feet, somewhat in neuropathic pattern. Pontine stroke ruled out. * PFO noted on SOFIYA. * Hypertension, uncontrolled * Diabetes, hemoglobin A1c 6.9 * Hyperlipidemia * Obesity * Obstructive sleep apnea on CPAP * Coronary artery disease, history of [place] in 2018 Plan: * MRI of the brain performed 01/06/2021 revealed age-related changes of atrophy and chronic small vessel ischemia. No acute or subacute ischemia. Some small vessel ischemic disease noted. The pattern of white matter lesions is not typical of multiple sclerosis. Her symptoms are slightly concerning for MS. However the next step would be lumbar puncture for which Plavix has to be discontinued for 5-7 days. Based upon her recurrent TIAs, I would not recommend stopping Plavix at this time. Maybe consider checking lumbar puncture down the road. * SOFIYA 01/05/2021 revealed PFO. The left atrial appendage is free of any clot. Normal valve function. Injection of the saline contrast bubbles showed crossing of the bubbles across the interatrial septum. * Continue dual antiplatelet medication at this time, and high-dose statins. * Cardiology on board. Appreciate cardiology input. * Patient is status post removal of loop recorder. * May treat blood pressure aggressively, to target blood pressure <130/80 * Hemoglobin A1c 6.9. * Patient interested in PFO closure. Patient undergoing cardiac catheterization tomorrow. * PT and OT.
[2021-01-07] MEDS: SODIUM CHLORIDE 0.9% 1,000 ML IV SCH (16:24)
[2021-01-07 17:13] LABS: Glucose,Whole Blood 230 mg/dL (75-99)
[2021-01-07 20:20] LABS: Glucose,Whole Blood 174 mg/dL (75-99)
[2021-01-07] MEDS: ATORVASTATIN 80 MG TAB PO SCH (20:31)
[2021-01-07] MEDS ORDERED: SODIUM CHLORIDE 0.9% 1,000 ML in EMPTY BAG 1 BAG IV ONE (23:00)
[2021-01-08] MEDS: DOXAZOSIN 4 MG TAB PO SCH (04:55)
[2021-01-08] MEDS: predniSONE 10 MG TAB PO SCH (04:55)
[2021-01-08] MEDS: TAMSULOSIN 0.4 MG CAP.ER.24H PO SCH (04:55)
[2021-01-08] MEDS: METOCLOPRAMIDE 5 MG TAB PO SCH ×4 (04:55→21:03)
[2021-01-08] MEDS: amLODIPine 5 MG TAB PO SCH (04:55)
[2021-01-08] MEDS: carvediloL 6.25 MG TAB PO SCH ×2 (04:55→17:14)
[2021-01-08] MEDS: ISOSORBIDE MONONITRATE ER 30 MG TAB.ER.24H PO SCH (04:55)
[2021-01-08] MEDS: ASPIRIN 81 MG PO SCH ×2 (04:55→05:18)
[2021-01-08] MEDS: PANTOPRAZOLE 40 MG TABLET PO SCH (04:56)
[2021-01-08] MEDS: GABAPENTIN 300 MG CAP PO SCH ×3 (04:56→21:03)
[2021-01-08] MEDS: CLOPIDOGREL 75 MG TAB PO SCH (04:56)
[2021-01-08] MEDS: LEVOTHYROXINE 88 MCG TAB PO SCH (04:56)
[2021-01-08] MEDS: metroNIDAZOLE 500 MG TAB PO SCH ×3 (04:56→21:03)
[2021-01-08] MEDS: LOSARTAN 25 MG TAB PO SCH (04:56)
[2021-01-08] MEDS: polyethylene glycoL 3350 17 GM POWD.PACK PO SCH (05:17)
[2021-01-08] MEDS ORDERED: ATORVASTATIN 80 MG TAB PO ONE (07:00)
[2021-01-08] MEDS ORDERED: HEPARIN SODIUM,PORCINE 2,500 UNIT in SODIUM CHLORIDE 0.9% 250 ML IRRIGATION PRN (07:00)
[2021-01-08] MEDS ORDERED: ASPIRIN 325 MG TAB PO ONE (07:00)
[2021-01-08] MEDS ORDERED: HEPARIN SODIUM,PORCINE 10,000 UNIT in SODIUM CHLORIDE 0.9% 1,000 ML IRRIGATION PRN (07:00)
[2021-01-08 07:02] LABS: Glucose,Whole Blood 116 mg/dL (75-99)
[2021-01-08] MEDS: INSULIN ASPART (NovoLOG) 100 UNIT/ML VIAL SQ SCH ×4 (07:03→21:03)
[2021-01-08 07:17] LABS: HCT 34.8 % (34.0-46.0); HGB 11.9 gm/dL (11.4-16.0); MCH 30.7 pg (25.0-35.0); MCHC 34.1 g/dL (31.0-37.0); MCV 89.9 fL (80.0-100.0); Platelet Count 177 k/uL (150-450); RBC 3.87 m/uL (3.80-5.40); RDW 15.1 % (11.5-15.5); WBC 5.4 k/uL (3.8-10.6)
[2021-01-08 07:35] LABS: ALT 35 U/L (4-34); AST 21 U/L (14-36); African American GFR (CKD) >90 (>60 ml/min/1.73 sqM); Albumin 2.9 g/dL (3.5-5.0); Alkaline Phosphatase 49 U/L (38-126); Anion Gap 3 mmol/L; Blood Urea Nitrogen 4 mg/dL (7-17); Calcium 8.4 mg/dL (8.4-10.2); Carbon Dioxide 31 mmol/L (22-30); Chloride 107 mmol/L (98-107); Glucose 119 mg/dL (74-99); Non-African American GFR(CKD) >90 (>60 ml/min/1.73 sqM); Potassium 3.7 mmol/L (3.5-5.1); Sodium 141 mmol/L (137-145); Total Bilirubin 0.6 mg/dL (0.2-1.3); Total Protein 4.9 g/dL (6.3-8.2)
[2021-01-08] MEDS: CEPHALEXIN 500 MG CAP PO SCH ×3 (08:16→21:02)
[2021-01-08] MEDS: EZETIMIBE 10 MG TAB PO SCH (08:16)
[2021-01-08] MEDS ORDERED: LIDOCAINE 1% INJ 10MG/ML (20 ML MDV) ONE ×2 (10:45→11:46)
[2021-01-08] MEDS ORDERED: fentaNYL (PF) 50 MCG/ML 2 ML AMP ONE (10:45)
[2021-01-08] MEDS ORDERED: MIDAZOLAM 2 MG/2 ML VIAL IVP ONE (11:11)
[2021-01-08] MEDS ORDERED: LIDOCAINE 1% (PF) 10 MG/ML (30 ML SDV) SQ ONE (11:11)
[2021-01-08] MEDS ORDERED: fentaNYL (PF) 50 MCG/ML 2 ML AMP IVP ONE (11:11)
[2021-01-08] MEDS ORDERED: IV FLUID CONTINUATION 900 ML IV ONE (11:13)
[2021-01-08] MEDS ORDERED: HEPARIN SODIUM 1,000 UN/ML (10ML VL) ONE (11:57)
[2021-01-08] MEDS ORDERED: HEPARIN SODIUM 1,000 UN/ML (10ML VL) IV ONE (12:00)
[2021-01-08] MEDS ORDERED: IOPAMIDOL-370 125ML BTL INJ ONE (12:18)
[2021-01-08] MEDS ORDERED: CLOPIDOGREL 75 MG TAB ONE (12:43)
[2021-01-08] MEDS ORDERED: SODIUM CHLORIDE 0.9% 1,000 ML IV SCH (12:45)
[2021-01-08] MEDS ORDERED: CLOPIDOGREL 75 MG TAB PO ONE (12:48)
--- NOTE | 2021-01-08 12:52 | P.PCN ---
Date of Procedure: 01/08/21 Operative Findings: PERCUTANEOUS CLOSURE OF PATENT FORAMEN OVALE (PFO) PERFORMING PHYSICIAN: Mario Dutta MD, [facility] PROCEDURE PERFORMED: 1. Successful percutaneous closure of patent foramen ovale PFO using 35 mm A mplatzer PFO occluder with an excellent results and without any residual shunt 2. Intracardiac echocardiogram imaging. 3. Right atrial angiogram. INDICATION: This is a very pleasant 70-year-old female patient was diagnosed SFA with a stroke. She underwent transesophageal echocardiogram which revealed aneurysmal interatrial septum with evidence of patent foramen ovale and [id number] shunt. She was brought to undergo a PFO closure percutaneously APPROACH: Right common femoral vein 2 COMPLICATION: None. LEVEL OF SEDATION: Moderate with sedation length of 58 minutes. PROCEDURE DESCRIPTION: After obtaining informed consent, the patient was brought to the cardiac kiln labourer. The right common femoral vein was cannulated x2 using micropuncture technique under ultrasound guidance, the micropuncture wire passed easily, then I placed two 8- Eritrean sheath in the right groin. Subsequently I cannulated the left common femoral vein with the same technique and I placed an 8-Eritrean sheath there as well. At that point, anticoagulation was initiated using heparin and the patient was given a bolus of 10,000 units of heparin IV with continuous ACT monitoring throughout the procedure. After that, the intracardiac echocardiogram probe was advanced through one of the venous sheath all the way to the right atrium where we did interrogate the interatrial septum and identified the patent foramen ovale which was measured about 35 mm. Subsequently, I did cross the patent foramen ovale using 0.035 J-wire with the backup support of multipurpose catheter. The wire was advanced all the way to the left upper pulmonary vein and subsequently the catheter was advanced over the wire to the left upper pulmonary vein. The 0.035 J-wire was pulled out and then I advanced a robson wire. Subsequently, the multipurpose catheter was withdrawn out and the wire was left in the left upper pulmonary vein. After that, I did prep the Amplatzer PFO occluder under saline. The device was loaded into the tank truck loader, which was attached to the sheath. Subsequently, I did exchange my 8-Eritrean sheath into the Shuttle sheath over a 0.035 robson wire. The sheath was advanced all the way under fluoroscopy guidance to the left atrium. Subsequently, the dilator of the sheath was withdrawn out along with the wire. After that, I did load the Amplatzer occluder under continuous saline flush to the sheath. The device was advanced all the way through the sheath were I did where I did deploy initially the left atrial occluder and then I pulled back the sheath and the left atrial occluder all the way to the interatrial septum and then I deployed the right atrial occluder after that. Before I released the device, I did interrogate the septum using ice images on multiple views. After I realized that the device was stable enough and in good position the device was released. Interrogation using ice was also performed after the device was released. By the end I did right atrial angiogram. The procedure was completed without any complication. POSTPROCEDURE MANAGEMENT: 1. Dual anti-platelet therapy. 2. An echo in 24 hours, in 1 week, in 4 weeks, as well as in 6 months. 5. Follow up
--- NOTE | 2021-01-08 12:56 | P.PN ---
Subjective Progress Note Date: 01/08/21 CHIEF COMPLAINT: Left-sided weakness HISTORY OF PRESENT ILLNESS: Patient is a hospital with TIA like symptoms. Surgical service is following in regards to constipation. Patient did have a bowel movements today and is passing gas. Her abdominal bloating has decreased. She denies any abdominal pain. She denies any nausea or vomiting. Patient had SOFIYA which did show PFO. Patient is status post successful percutaneous closure of patent foramen ovale by Dr. Lam. Patient is followed by neurology r egarding her TIA like symptoms. She's afebrile. PHYSICAL EXAM: VITAL SIGNS: Reviewed. GENERAL: Well-developed in no acute distress. HEENT: No sclera icterus. Extraocular movements grossly intact. Moist buccal mucosa. Head is atraumatic, normocephalic. ABDOMEN: Soft. Nondistended and nontender NEUROLOGIC: Alert and oriented. Cranial nerves II through XII grossly intact. ASSESSMENT: 1. Constipation PLAN: -Continue supportive care -Recommend Benefiber when patient is discharged -Continue stool softener and MiraLAX daily Physician Network Developer note has been reviewed by physician. Signing provider agrees with the documented findings, assessment, and plan of care. Objective - Vital Signs Vital signs: Vital Signs Temp 96.9 F L 01/08/21 09:08 Pulse 91 01/08/21 09:08 Resp 20 01/08/21 09:08 BP 121/67 01/08/21 09:08 Pulse Ox 92 L 01/08/21 09:08 Intake & Output 01/07/21 01/08/21 01/08/21 18:59 06:59 18:59 Intake Total 780 700 200 Output Total 350 Balance 780 350 200 Weight 113.8 kg Intake: IV 200 Intake, IV Titration 700 Amount Sodium Chloride 0.9% 1, 700 000 ml In Empty Bag 1 bag @ 1 ML/KG/HR 101 mls/hr IV .[id number] ONE Rx#: [id number] Oral 780 0 Output: Urine 350 Other: Voiding Method Bedside Commode # Voids 2 1 # Bowel Movements 1 - Labs CBC & Chem 7: 01/08/21 06:57 01/08/21 06:57 Labs: Abnormal Lab Results - Last 24 Hours (Table) 01/07/21 01/07/21 01/08/21 Range/Units 17:11 20:04 06:57 Carbon Dioxide 31 H (22-30) mmol/L BUN 4 L (7-17) mg/dL Glucose 119 H (74-99) mg/dL POC Glucose (mg/dL) 230 H 174 H (75-99) mg/dL ALT 35 H (4-34) U/L Total Protein 4.9 L (6.3-8.2) g/dL Albumin 2.9 L (3.5-5.0) g/dL 01/08/21 Range/Units 07:00 Carbon Dioxide (22-30) mmol/L BUN (7-17) mg/dL Glucose (74-99) mg/dL POC Glucose (mg/dL) 116 H (75-99) mg/dL ALT (4-34) U/L Total Protein (6.3-8.2) g/dL Albumin (3.5-5.0) g/dL
[2021-01-08 13:07] LABS: Glucose,Whole Blood 161 mg/dL (75-99)
[2021-01-08] MEDS: SODIUM CHLORIDE 0.9% 1,000 ML IV SCH (13:42)
--- NOTE | 2021-01-08 13:42 | CC ---
CARDIAC CATHETERIZATION REPORT INDICATION: Unstable angina. This is a patient with known coronary artery disease, prior angioplasty of right coronary artery who was admitted to hospital with CVA, underwent a SOFIYA that showed PFO, but also complained of recurrent episodes of chest pain and wished to proceed with cardiac catheterization for definitive diagnosis. She was explained of risks, benefits and alternatives, including the risk of stroke. She understood and was anxious to know why she was having these recurrent episodes of chest pain that were very similar to the pain that she had prior to stent. PROCEDURE NOTE: After obtaining informed consent, left heart catheterization and coronary angiogram were performed via the right femoral artery using standard Leonard catheters. Patient tolerated the procedure well without any obvious immediate complications. The circumflex coronary artery and LAD have separate origins and we went through multiple catheter exchanges and ultimately the LAD images were obtained using a size 3 left Leonard catheter. FINDINGS: 1. HEMODYNAMICS: Left ventricular end-diastolic pressure is 8 to 10 mm. There is no significant gradient across the aortic valve. 2. LEFT VENTRICULOGRAM: Left ventriculogram is not performed. 3. ANGIOGRAPHIC DATA: The left main coronary artery, it is a short vessel. Circumflex coronary artery and LAD have separate origins. LAD shows mild nonobstructive disease in its midportion. Circumflex coronary artery has mild nonobstructive disease. Right coronary artery is a large dominant vessel. The proximal portion was previously stented and appears patent. There is mild to moderate diffuse disease distally. CONCLUSIONS: 1. Patent stent within the right coronary artery. 2. Mild nonobstructive disease in LAD and circumflex coronary artery. PLAN: Patient's chest discomfort is noncardiac in origin and her management is going to be in the form of risk factor modification and medical therapy. MMODL / IJN: [id number] /
--- NOTE | 2021-01-08 13:42 | LTR ---
January 08, 2021 Re: Thelmadonn Mohan Dear Dr. Aburto: Ms. Thelma Mohan underwent today successful percutaneous closure of patent foramen ovale using 35 mm Amplatzer PFO occluder with an excellent angiographic results and without any complication. I want to thank you for allowing me to participate in her care and please do not hesitate to call if you have any question or concern. Sincerely, Mario Dutta MD MMNIKOLAY / WICHON: [id number] /
[2021-01-08 13:43] VITALS: BMI 44.4
[2021-01-08] MEDS ORDERED: FUROSEMIDE 10 MG/ML 2 ML VIAL IV ONE (15:37)
--- NOTE | 2021-01-08 15:48 | P.PN ---
Subjective Progress Note Date: 01/08/21 01/08/2021: Patient underwent cardiac catheterization. Patient underwent successful percutaneous closure of the PFO today by Dr. Dutta. Patient also had coronary angiography, which revealed patent stent in the right coronary artery. Mild non-obstructive disease and LAD and circumflex coronary artery. R ecommended dual antiplatelet medications. Patient states her blurred vision has resolved. 01/07/2021: Patient states she is feeling better than yesterday her speech has improved. Continues to have blurred vision. Patient states that her left arm always have been weak since she had a first mini stroke 5 years ago. Patient is undergoing cardiac catheterization tomorrow as per patient. Her blood pressure is well-controlled 115/54. Telemetry monitoring showing sinus rhythm in the 60s and 70s. Her colitis that was diagnosed on last admission has improved. 01/06/2021: Patient just returned back from MRI. Patient's was also present. Patient states that she is feeling slightly more better. No new focal symptoms. No headaches. No syncopal spells. 01/05/2021: Patient just returned from SOFIYA. She states she is feeling better. Patient had undergone removal of the loop recorder. Patient states her vision is better and her numbness on left side has improved. She still has mild slurred speech. She continues to have numbness of her hands and forearms, feet in the lower legs, bilaterally. Appears almost in neuropathic fashion. Telemetry monitoring showing sinus rhythm in around 80s. No A. fib. 01/04/2021: The patient was seen for a follow-up. Please refer to Dr. Jere Ríos note for details. Patient's was also present. Patient tells me that her symptoms started on Monday night when she woke up, urinated 6 times, felt clammy, sweaty. She felt lightheaded, couldn't drink and heart was racing and face was red. She took an extra aspirin 81 mg. Her hus band checked her blood pressure at 10 in the morning was 220/110, she took another aspirin 81 mg, but her called the ambulance and patient was taken to [facility] in [place]. Patient was subsequently transferred to [facility] on 01/02/2021 at 6:27 PM. Patient states that she was noted to be weak on the left side, some slurred speech. Patient was not a candidate for TPA. Patient underwent repeat CTA of head and neck, which again showed no stenosis. No occlusion. EKG shows sinus rhythm with occasional PVCs, left axis deviation, possible anterior infarct, age undetermined. 2-D echo shows sinus rhythm. Technically difficult study with suboptimal views. Left ventricle systolic function is 55-60%. It was a limited study. Patient has received loading dose of Plavix 225 mg yesterday 10:43 AM. Patient today does not notice any significant improvement, as mentioned below. Hemoglobin A1c 6.9 on 12/22/2020, total cholesterol 138, LDL 38.6, HDL 67 and triglycerides 162. At present patient continues to have some slurring was speech, heaviness of the left arm, numbness of bilateral lower limbs and hands bilaterally. Patient says that she feels generalized weakness, not feeling like herself. Sometimes she feels tightness in the chest, burning in the back, left arm feels heavy. Both legs hurt to touch, and her left arm is tender to touch. She feels fatigued weak tired and she feels her body quivers. Also complains of blurred vision. Telemetry monitoring showing sinus bradycardia in the 50s, PVCs, slight SVTs and PACs. Objective - Vital Signs Vital signs: Vital Signs Temp 97.6 F 01/08/21 13:15 Pulse 65 01/08/21 15:00 Resp 20 01/08/21 15:00 BP 122/63 01/08/21 15:00 Pulse Ox 92 L 01/08/21 09:08 Intake & Output 01/07/21 01/08/21 01/08/21 18:59 06:59 18:59 Intake Total 886 905 8992 Output Total 350 500 Balance 780 350 508 Weight 113.8 kg 113.8 kg Intake: IV 200 Intake, IV Titration 700 808 Amount Sodium Chloride 0.9% 1, 808 000 ml @ 75 mls/hr IV . [id number] [facility] Rx#:[id number] Sodium Chloride 0.9% 1, 700 000 ml In Empty Bag 1 bag @ 1 ML/KG/HR 101 mls/hr IV .[id number] ONE Rx#: [id number] Oral 780 0 Output: Urine 350 500 Other: Voiding Method Bedside Commode # Voids 2 1 # Bowel Movements 1 - Exam 01/06/2021: Patient's mentation is normal. Detail examination not performed, as patient is laying flat post-angiography. 01/07/2021: Patient's mental status, speech and language functions are normal. Patient hardly has any dysarthria, probably baseline. On cranial exam showed pupils are round and reacting, visual robledo are full, extraocular muscles are intact. She has no facial droop noticed, very slight left-sided asymmetry, which is probably her baseline. Tongue protrudes the midline. On muscle strength testing patient has left pronator drift. Patient has slight weakness of the left clinical study manager, and left deltoid, which is probably baseline. Strength is equal in the legs. Sensations are equal in the arms with no neglect. No ataxia. Tone and bulk of muscles normal. - Labs CBC & Chem 7: 01/08/21 06:57 01/08/21 06:57 Labs: Abnormal Lab Results - Last 24 Hours (Table) 01/07/21 01/07/21 01/08/21 Range/Units 17:11 20:04 06:57 Carbon Dioxide 31 H (22-30) mmol/L BUN 4 L (7-17) mg/dL Glucose 119 H (74-99) mg/dL POC Glucose (mg/dL) 230 H 174 H (75-99) mg/dL ALT 35 H (4-34) U/L Total Protein 4.9 L (6.3-8.2) g/dL Albumin 2.9 L (3.5-5.0) g/dL 01/08/21 01/08/21 Range/Units 07:00 13:05 Carbon Dioxide (22-30) mmol/L BUN (7-17) mg/dL Glucose (74-99) mg/dL POC Glucose (mg/dL) 116 H 161 H (75-99) mg/dL ALT (4-34) U/L Total Protein (6.3-8.2) g/dL Albumin (3.5-5.0) g/dL Assessment and Plan Assessment: * Recurrent 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 Acute CVA ruled out with MRI. Probable reversible ischemic neurologic deficit. * Numbness of bilateral hands, feet, somewhat in neuropathic pattern. Pontine stroke ruled out. * PFO noted on SOFIYA, status post PFO closure today. * Hypertension, uncontrolled * Diabetes, hemoglobin A1c 6.9 * Hyperlipidemia * Obesity * Obstructive sleep apnea on CPAP * Coronary artery disease, history of CA in 2018 Plan: * Patient had undergone cardiac catheterization, which revealed nonsignificant coronary artery disease. Stent is patent. Patient also underwent PFO closure. Patient states that she is feeling better, and the blurred vision today has resolved. * MRI of the brain performed 01/06/2021 revealed age-related changes of atrophy and chronic small vessel ischemia. No acute or subacute ischemia. Some small vessel ischemic disease noted. * SOFIYA 01/05/2021 revealed PFO. The left atrial appendage is free of any clot. Normal valve function. Injection of the saline contrast bubbles showed crossing of the bubbles across the interatrial septum. * Continue dual antiplatelet medication at this time, and high-dose statins. * Cardiology on board. Appreciate cardiology input. * Patient is status post removal of loop recorder. * May treat blood pressure aggressively, to target blood pressure <130/80 * Hemoglobin A1c 6.9. * PT and OT. * Neurologically clear. Dr. Castellano will be rounding tomorrow, and Dr. Jere Ríos Will resume neurology service on Monday. Please call neurology if any other concerns.
--- NOTE | 2021-01-08 15:59 | PN ---
PROGRESS NOTE Patient is seen for followup for uncontrolled hypertension. The patient had episodic hypertension prior to admission. Workup for secondary causes was negative. The patient's medications have been adjusted and her blood pressure is very well controlled since she has been in although she is complaining of increased lower extremity edema since she has been on fluids for cardiac catheterization. Patient has had complaints of numbness and tingling and there is concern for possible ongoing TIA. She was found to have a patent foramen ovale and is scheduled for cardiac catheterization today. PHYSICAL EXAMINATION: On examination today, blood pressure was 115/58, heart rate 69 per minute. She is afebrile. EXAMINATION OF THE HEART: S1, S2. EXAMINATION OF THE LUNGS: Bilateral breath sounds are heard. Abdomen is soft, nontender. Examination of lower extremities shows edema 1+ bilaterally. MOBILE HOME INSTALLER exam grossly intact. LABS: Labs show sodium 141, potassium 3.7, chloride 107, CO2 is 31, BUN 4, serum creatinine 0.56, hemoglobin 11.9 g/dL. ASSESSMENT: 1. Hypertension with episodes of uncontrolled hypertension currently improved with workup for secondary causes are negative. The patient is currently volume overloaded. I will discontinue the IV fluids post cardiac catheterization and I will give her a dose of Lasix as well. Her GFR is fairly well preserved. 2. Patent foramen ovale being followed by Cardiology with concern for possible ongoing embolic phenomena, but there was no clot noted on SOFIYA. PLAN: Discontinue IV fluids, Lasix 20 mg IV x1. MMODL / IJN: [id number] /
[2021-01-08 16:59] LABS: Glucose,Whole Blood 128 mg/dL (75-99)
[2021-01-08 19:52] LABS: Glucose,Whole Blood 166 mg/dL (75-99)
[2021-01-08] MEDS: DOCUSATE 100 MG CAP PO SCH (21:02)
[2021-01-08] MEDS: ATORVASTATIN 80 MG TAB PO SCH (21:03)
--- NOTE | 2021-01-08 22:02 | PN ---
PROGRESS NOTE This patient is a 70-year-old white female status post fixture today Dr. Dutta heart catheterization. Her dizziness has improved. PFO has been fixed with a patent stent in the right coronary artery. Remains on dual antiplatelets. Blurred vision is resolved. VITAL SIGNS: Temperature 97.6, pulse 60 to 65, respiratory rate 18 to 22, blood pressure 122/63, oxygen 92%. CARDIOVASCULAR: S1, S2. LUNGS: Clear. GI: Soft. HEMATOLOGY: Negative Homans. Labs are reviewed. ASSESSMENT: 1. Hypertensive encephalopathy. No signs of stroke on MRI. 2. Possible MS as she has 10 white lesions on her brain. 3. PFO on transesophageal echocardiogram. 4. Hypertension, uncontrolled. 5. Diabetes. 6. Dyslipidemia. 7. Obesity. 8. Obstructive sleep apnea. 9. Coronary artery disease. Will monitor her vision post PFO fixture. Continue antiplatelet medication. Treat blood pressure aggressively. Will worry about possible neurologic test to rule out MS as an outpatient, as Neurology is not concerned about it here as an inpatient. Maybe some of her symptoms were from the PFO. Will find out. MMODL / IJN: [id number] /
[2021-01-08] MEDS: ACETAMINOPHEN TAB 325 MG TAB PO PRN (23:25)
[2021-01-09] MEDS: metroNIDAZOLE 500 MG TAB PO SCH ×3 (03:23→20:53)
[2021-01-09 06:30] LABS: Glucose,Whole Blood 92 mg/dL (75-99)
[2021-01-09] MEDS: GABAPENTIN 300 MG CAP PO SCH ×3 (06:35→20:53)
[2021-01-09] MEDS: METOCLOPRAMIDE 5 MG TAB PO SCH ×4 (06:35→20:53)
[2021-01-09] MEDS: carvediloL 6.25 MG TAB PO SCH ×2 (06:35→17:57)
[2021-01-09] MEDS: INSULIN ASPART (NovoLOG) 100 UNIT/ML VIAL SQ SCH ×4 (06:35→20:53)
[2021-01-09] MEDS: LEVOTHYROXINE 88 MCG TAB PO SCH (06:35)
--- NOTE | 2021-01-09 07:53 | XR ---
EXAMINATION TYPE: XR chest 2V DATE OF EXAM: 01/09/2021 COMPARISON: 01/06/2021 HISTORY: MRI clearance TECHNIQUE: Frontal and lateral views of the chest are obtained. FINDINGS: Lungs are clear consolidative, interstitial masslike opacity. There is no pleural effusion, pleural thickening or pneumothorax. The heart and pulmonary vasculature, mediastinum and hilum are normal. The osseous structures are intact. On the lateral projection, there is a small opaque foreign body projecting over the region of the lef t atrium. This is not clearly seen on prior study dated 01/06/2021 or on the current PA view of the est. Clinical correlation is recommended. IMPRESSION: 1. No acute cardiopulmonary disease. 2. Radiopaque foreign body on the lateral view of the chest, see above.
[2021-01-09 08:09] LABS: Basophils % (A) 0 %; Eosinophils # (A) 0.1 k/uL (0-0.7); Eosinophils % (A) 1 %; HCT 36.7 % (34.0-46.0); HGB 12.3 gm/dL (11.4-16.0); Lymphocytes # (A) 1.4 k/uL (1.0-4.8); Lymphocytes % (A) 27 %; MCHC 33.4 g/dL (31.0-37.0); MCV 89.7 fL (80.0-100.0); Mean Platelet Volume 7.9; Monocytes # (A) 0.4 k/uL (0-1.0); Monocytes % (A) 8 %; Neutrophils # (A) 3.2 k/uL (1.3-7.7); Neutrophils % (A) 63 %; Platelet Count 183 k/uL (150-450); RBC 4.09 m/uL (3.80-5.40); WBC 5.2 k/uL (3.8-10.6)
[2021-01-09 08:24] LABS: African American GFR (CKD) >90 (>60 ml/min/1.73 sqM); Albumin 3.1 g/dL (3.5-5.0); Anion Gap 5 mmol/L; Blood Urea Nitrogen 4 mg/dL (7-17); Calcium 8.5 mg/dL (8.4-10.2); Carbon Dioxide 31 mmol/L (22-30); Chloride 103 mmol/L (98-107); Glucose 106 mg/dL (74-99); Non-African American GFR(CKD) >90 (>60 ml/min/1.73 sqM); Potassium 2.9 mmol/L (3.5-5.1); Sodium 139 mmol/L (137-145); Total Bilirubin 0.8 mg/dL (0.2-1.3); Total Protein 5.2 g/dL (6.3-8.2)
[2021-01-09 08:25] LABS: ALT 37 U/L (4-34); AST 28 U/L (14-36); Alkaline Phosphatase 54 U/L (38-126)
[2021-01-09] MEDS ORDERED: CLOPIDOGREL 75 MG TAB PO SCH (09:00)
[2021-01-09] MEDS: predniSONE 10 MG TAB PO SCH (10:13)
[2021-01-09] MEDS: polyethylene glycoL 3350 17 GM POWD.PACK PO SCH (10:13)
[2021-01-09] MEDS: PANTOPRAZOLE 40 MG TABLET PO SCH (10:13)
[2021-01-09] MEDS: TAMSULOSIN 0.4 MG CAP.ER.24H PO SCH (10:20)
[2021-01-09] MEDS: DOCUSATE 100 MG CAP PO SCH ×2 (10:21→20:53)
[2021-01-09] MEDS: amLODIPine 5 MG TAB PO SCH (10:21)
[2021-01-09] MEDS: ASPIRIN 325 MG TAB PO SCH (10:21)
[2021-01-09] MEDS: EZETIMIBE 10 MG TAB PO SCH (10:21)
[2021-01-09] MEDS: CEPHALEXIN 500 MG CAP PO SCH ×3 (10:21→20:53)
[2021-01-09] MEDS: CLOPIDOGREL 75 MG TAB PO SCH (10:21)
[2021-01-09] MEDS: DOXAZOSIN 4 MG TAB PO SCH (10:21)
[2021-01-09] MEDS: LOSARTAN 25 MG TAB PO SCH (10:22)
[2021-01-09] MEDS: ISOSORBIDE MONONITRATE ER 30 MG TAB.ER.24H PO SCH (10:22)
[2021-01-09] MEDS: ACETAMINOPHEN TAB 325 MG TAB PO PRN (10:22)
--- NOTE | 2021-01-09 10:42 | P.PN ---
Subjective Progress Note Date: 01/09/21 This is a 71-year-old female seen in consultation because of uncontrolled hypertension with episodes of high blood pressure as well as low blood pressure. She was admitted with generalized weakness numbness and tingling. Supposedly brought here was 220 at home but since her hospitalization pressures have been reasonably well controlled. She has been extensively worked up. CT scan of the abdomen does not show any adrenal or renal pathology, TSH is normal plasma aldosterone is normal but the Renin is high, at 85 height: 4 mL normal being less than 57. 24-hour urine for metanephrines is normal, cortisol is 3 mcg/dL She had a echocardiogram that showed a patent foramen ovale on this and had this procedure done this morning. Denies any visual blurring headache dizziness chest pain shortness of breath nausea vomiting. Blood pressures are well-controlled Objective - Vital Signs Vital signs: Vital Signs Temp 97.8 F 01/09/21 08:00 Pulse 70 01/09/21 08:00 Resp 16 01/09/21 08:00 BP 136/69 01/09/21 08:00 Pulse Ox 96 01/09/21 08:00 Intake & Output 01/08/21 01/09/21 01/09/21 18:59 06:59 18:59 Intake Total 1133 240 Output Total 675 2200 Balance 458 -2200 240 Weight 113.8 kg 63 kg Intake: IV 200 Intake, IV Titration 808 Amount Sodium Chloride 0.9% 1, 808 000 ml @ 75 mls/hr IV . [id number] [facility] Rx#:[id number] Oral 125 240 Output: Urine 675 2200 Other: Voiding Method Bedpan # Voids 1 Examination awake alert oriented. HEENT exam no JVP lungs are clear to auscultation percussion good air entry bilaterally Heart sounds unremarkable for any murmur rub gallop Abdomen soft nontender Extremity exam was trace edema Neurologically awake alert oriented - Labs CBC & Chem 7: 01/09/21 07:42 01/09/21 07:42 Labs: Abnormal Lab Results - Last 24 Hours (Table) 01/08/21 01/08/21 01/08/21 Range/Units 13:05 16:42 19:50 Potassium (3.5-5.1) mmol/L Carbon Dioxide (22-30) mmol/L BUN (7-17) mg/dL Glucose (74-99) mg/dL POC Glucose (mg/dL) 161 H 128 H 166 H (75-99) mg/dL ALT (4-34) U/L Total Protein (6.3-8.2) g/dL Albumin (3.5-5.0) g/dL 01/09/21 Range/Units 07:42 Potassium 2.9 L (3.5-5.1) mmol/L Carbon Dioxide 31 H (22-30) mmol/L BUN 4 L (7-17) mg/dL Glucose 106 H (74-99) mg/dL POC Glucose (mg/dL) (75-99) mg/dL ALT 37 H (4-34) U/L Total Protein 5.2 L (6.3-8.2) g/dL Albumin 3.1 L (3.5-5.0) g/dL Assessment and Plan Assessment: Impression 1. Uncontrolled hypertension cause not very clear all secondary causes have been ruled out. 2. Patent foramen ovale of had procedure done today 3. History of coronary artery disease, status post PCI to RCA May 2018. 4. Left-sided weakness resolved. 5. Diabetes mellitus 6. Obesity 7. Sleep apnea on CPAP Recommendation 1. Maintain current medications 2. She needs weight loss. 3. The higher anion possibly could be from the renin producing tumor or renal artery stenosis but this seems unlikely given the normal CT scan of the abdomen . 4. Will obtain MRI of the kidney with gadolinium if necessary based on blood p ressures at home constantly monitored 2-3 times a day and recorded and brought to our office
--- NOTE | 2021-01-09 10:44 | P.PN ---
Subjective Progress Note Date: 01/09/21 HISTORY OF PRESENT ILLNESS: 01/03/2021 This is a 70-year-old female with a past medical history significant for diabetes mellitus, GERD, hyperlipidemia, hypertension, TIA, coronary artery disease with previous STEMI in 2018 with PCI to RCA. Patient follows in the office with Dr. Zepeda. We have been asked to see the patient in consultation for hypertension. Patient examined at the bedside. Patient originally presented to [facility] secondary to elevated blood pressure. Patient states she took he r blood pressure at home and it was 220/100s. She reports her blood pressure usually runs in the 130s to 140s. She states that she saw her criminal investigator on who discontinued her lisinopril and started her on losartan because she was experiencing a cough secondary to the lisinopril. Patient reports left- sided weakness and numbness and tingling in her lips. She also reports some left-sided chest discomfort that she describes as a burning sensation which she reports was similar to her previous heart attack. Patient also reports feeling palpitations over the past few months. No previous history of atrial fibrillation. She reports a history of a loop recorder insertion. She states this was interrogated last month when she was admitted to the hospital for weakness and hypertension. Patient states she was told there was no arrhythmias or atrial fibrillation noted at that time. Most recent echocardiogram obtained in October 2020 reveals ejection fraction 55-60%, mild mitral regurgitation, and mild tricuspid regurgitation. Cardiac catheterization history: Patient underwent cardiac catheterization in May 2018 at [facility] secondary to inferior STEMI. Patient underwent PCI of the proximal RCA which was 99% occluded. Additional findings included 20% ostial LAD, 10% proximal LAD, 20% mid LAD. Left circumflex: Codominant artery, at the bifurcation site of the OM and the left circumflex, though left circumflex shows a borderline 4050 percent lesion, this vessel is of small size and not at target for intervention. The OM branch which is a sizable branch was a 20% diffuse proximal stenosis. The patient had abnormal stress test in October 2020. This was reviewed by Dr. Nagel during her previous hospitalization in November [address] Nagel suggested that the patient may have had some progression of the lesion in the circumflex which may account for her abnormal stress test. EKG reveals sinus mechanism with PVCs. Left axis deviation. Chest xray completed at outside facility was negative for acute process Laboratory data: WBC 6.54. Hemoglobin 12.4. Platelet count 166. Sodium 143. Potassium 3.5. BUN 7. Creatinine 0.5. Troponin negative 1 Current home cardiac medications include carvedilol 6.25 mg daily, aspirin 81 mg daily, losartan 25 mg daily, amlodipine 5 mg daily, Imdur 30 mg daily, Zetia 10 mg daily, Cardura 4 mg daily, and Lipitor 40 mg daily. 01/04/2021 Limited echo completed revealing ejection fraction 55-60% 01/06/2021 Cardiology personally spoke with [facility] rep yesterday regarding loop recorder interrogation. Device rep states there was no evidence of atrial fibrillation upon interrogation. SOFIYA yesterday revealing small PFO. She also underwent removal of loop recorder. Lower extremity Doppler negative for DVT. She is reporting burning of left sided chest that has been ongoing for the past few weeks. 01/07/2021 Brain MRI yesterday revealing age-related changes of atrophy and chronic small vessel ischemia. No subacute ischemia. Patient continues to report a burning sensation on the left side of her chest. She is requesting to undergo cardiac catheterization. She also discussed PFO closure versus antico agulation with neurology and is interested in PFO closure. 01/09: Yesterday, patient underwent heart catheterization that revealed patent stent within the right coronary artery. Mild nonobstructive disease in the LAD and circumflex. She subsequently underwent percutaneous closure of the patent foramen ovale. The patient complains of feeling tired. She has had hematoma and bleeding to the right groin site. She is complaining of numbness lower extremities. Pulse rechecked by Doppler. Patient is afebrile, heart rate 70s, blood pressure 136/69 and pulse ox 96% on room air. CBC is unremarkable. Potassium is 2.9 and has been replaced. Creatinine 0.58. PHYSICAL EXAM: GENERAL: Well-developed in no acute distress. HEENT: Head is normocephalic. Pupils are equal, round. Sclerae anicteric. Mucous membranes of the mouth are moist. Neck supple. No JVD or thyromegaly LUNGS: Respirations even and unlabored. Lungs essentially clear to auscultation bilaterally. HEART: Regular rate and rhythm. S1 and S2 heard. ABDOMEN: Soft. Nondistended. Nontender. EXTREMITIES: Left-sided weakness. No clubbing or cyanosis. Peripheral pulses intact. No lower extremity edema NEUROLOGIC: Awake and alert. Oriented x 3. ASSESSMENT: Hypertensive emergency Left-sided weakness with left-sided facial numbness, suspect CVA, however MRI of the brain negative for acute stroke Coronary artery disease with PCI to RCAMay 2018 Palpitations with history of loop recorder insertion Status post removal of loop recorder History of TIA 2 Hyperlipidemia Diabetes mellitus Sleep apnea with CPAP use Morbid obesity: BMI 43.4 SOFIYA revealing small PFO status post percutaneous closure Hypokalemia PLAN: Monitor blood pressure Continue current cardiac medications Neurology following Potassium replacement and recheck potassium at 4 PM Further recommendations pending patient's course Nurse practitioner note has been reviewed by physician. Signing provider agrees with the documented findings, assessment, and plan of care. Objective - Vital Signs Vital signs: Vital Signs Temp 97.8 F 01/09/21 08:00 Pulse 70 01/09/21 08:00 Resp 16 01/09/21 08:00 BP 136/69 01/09/21 08:00 Pulse Ox 96 01/09/21 08:00 Intake & Output 01/08/21 01/09/21 01/09/21 18:59 06:59 18:59 Intake Total 1133 240 Output Total 675 2200 Balance 458 -2200 240 Weight 113.8 kg 63 kg Intake: IV 200 Intake, IV Titration 808 Amount Sodium Chloride 0.9% 1, 808 000 ml @ 75 mls/hr IV . [id number] [facility] Rx#:[id number] Oral 125 240 Output: Urine 675 2200 Other: Voiding Method Bedpan # Voids 1 - Labs CBC & Chem 7: 01/09/21 07:42 01/09/21 07:42 Labs: Abnormal Lab Results - Last 24 Hours (Table) 01/08/21 01/08/21 01/08/21 Range/Units 13:05 16:42 19:50 Potassium (3.5-5.1) mmol/L Carbon Dioxide (22-30) mmol/L BUN (7-17) mg/dL Glucose (74-99) mg/dL POC Glucose (mg/dL) 161 H 128 H 166 H (75-99) mg/dL ALT (4-34) U/L Total Protein (6.3-8.2) g/dL Albumin (3.5-5.0) g/dL 01/09/21 Range/Units 07:42 Potassium 2.9 L (3.5-5.1) mmol/L Carbon Dioxide 31 H (22-30) mmol/L BUN 4 L (7-17) mg/dL Glucose 106 H (74-99) mg/dL POC Glucose (mg/dL) (75-99) mg/dL ALT 37 H (4-34) U/L Total Protein 5.2 L (6.3-8.2) g/dL Albumin 3.1 L (3.5-5.0) g/dL
--- NOTE | 2021-01-09 11:11 | P.PN ---
Progress Note - Text Progress Note Date: 01/09/21 Patient denies any abdominal pain. On exam her vital signs are stable. Abdomen soft. Patient has continued to have bowel movements. Because patient has resolved.
--- NOTE | 2021-01-09 11:44 | PN ---
PROGRESS NOTE 70-year-old white female status post successful percutaneous closure of patent foramen ovale with an Amplatzer PFO occluder by Dr. Dutta. Patient's blurred vision is improving. She feels better than on admission when she came in. Blood pressure is running 130s over 60s to 70s, temp 97 to 98. Respiratory 16-18, O2 96% on room air. Cardiovascular S1, S2. Lungs clear. GI soft. Hematology negative Homans. Psych: Fair mood and affect. ASSESSMENT: 1. Status post PFO. 2. Hypertension acceleration. 3. Diabetes mellitus. 4. Chronic neuropathy. Going to order MRI of the brain, possibly MS will be worked up as an outpatient. Possibly discharge home soon. We will discuss with Cardiology. Monitor electrolytes. MMODL / IJN: [id number] /
[2021-01-09 12:03] LABS: Glucose,Whole Blood 166 mg/dL (75-99)
[2021-01-09] MEDS: SODIUM CHLORIDE 0.9% 1,000 ML IV SCH (13:18)
[2021-01-09] MEDS: POTASSIUM CHLORIDE ER 20 MEQ TAB.ER PO SCH ×3 (13:18→16:32)
[2021-01-09 16:31] LABS: Glucose,Whole Blood 182 mg/dL (75-99)
[2021-01-09 16:35] LABS: Metanephrine, Free <25 pg/mL (< OR = 57); Normetanephrine, Free 131 pg/mL (< OR = 148); Total, Free (MN + NMN) 131 pg/mL (< OR = 205)
[2021-01-09 20:35] LABS: Glucose,Whole Blood 141 mg/dL (75-99)
[2021-01-09] MEDS: ATORVASTATIN 80 MG TAB PO SCH (20:53)
[2021-01-10 00:33] VITALS: RESP 16
[2021-01-10] MEDS: metroNIDAZOLE 500 MG TAB PO SCH ×2 (04:02→12:29)
[2021-01-10 06:13] LABS: Glucose,Whole Blood 124 mg/dL (75-99)
[2021-01-10] MEDS: METOCLOPRAMIDE 5 MG TAB PO SCH ×2 (06:34→12:29)
[2021-01-10] MEDS: GABAPENTIN 300 MG CAP PO SCH (06:34)
[2021-01-10] MEDS: INSULIN ASPART (NovoLOG) 100 UNIT/ML VIAL SQ SCH ×2 (06:35→12:29)
[2021-01-10] MEDS: LEVOTHYROXINE 88 MCG TAB PO SCH (06:35)
[2021-01-10] MEDS: carvediloL 6.25 MG TAB PO SCH (06:37)
[2021-01-10 07:21] LABS: ALT 34 U/L (4-34); AST 25 U/L (14-36); African American GFR (CKD) >90 (>60 ml/min/1.73 sqM); Albumin 2.9 g/dL (3.5-5.0); Alkaline Phosphatase 58 U/L (38-126); Anion Gap 2 mmol/L; Blood Urea Nitrogen 7 mg/dL (7-17); Calcium 8.5 mg/dL (8.4-10.2); Carbon Dioxide 31 mmol/L (22-30); Chloride 105 mmol/L (98-107); Glucose 113 mg/dL (74-99); Non-African American GFR(CKD) >90 (>60 ml/min/1.73 sqM); Potassium 3.8 mmol/L (3.5-5.1); Sodium 138 mmol/L (137-145); Total Bilirubin 0.5 mg/dL (0.2-1.3); Total Protein 4.9 g/dL (6.3-8.2)
[2021-01-10] MEDS: TAMSULOSIN 0.4 MG CAP.ER.24H PO SCH (08:33)
[2021-01-10] MEDS: polyethylene glycoL 3350 17 GM POWD.PACK PO SCH (08:33)
[2021-01-10] MEDS: CLOPIDOGREL 75 MG TAB PO SCH (08:33)
[2021-01-10] MEDS: predniSONE 10 MG TAB PO SCH (08:33)
[2021-01-10] MEDS: amLODIPine 5 MG TAB PO SCH (08:33)
[2021-01-10] MEDS: EZETIMIBE 10 MG TAB PO SCH (08:34)
[2021-01-10] MEDS: ISOSORBIDE MONONITRATE ER 30 MG TAB.ER.24H PO SCH (08:34)
[2021-01-10] MEDS: DOXAZOSIN 4 MG TAB PO SCH (08:34)
[2021-01-10] MEDS: CEPHALEXIN 500 MG CAP PO SCH (08:34)
[2021-01-10] MEDS: DOCUSATE 100 MG CAP PO SCH (08:34)
[2021-01-10] MEDS: ASPIRIN 325 MG TAB PO SCH (08:34)
[2021-01-10] MEDS: PANTOPRAZOLE 40 MG TABLET PO SCH (08:35)
[2021-01-10] MEDS: LOSARTAN 25 MG TAB PO SCH (08:35)
[2021-01-10] MEDS: ACETAMINOPHEN TAB 325 MG TAB PO PRN (08:37)
--- NOTE | 2021-01-10 09:50 | ECHOF ---
Referral Reason:Post ASD/PFO Insertion MEASUREMENTS -------- HEIGHT: 160.0 cm WEIGHT: 113.4 kg BP: 135/70 RVIDd: 3.6 cm (< 3.3) IVSd: 1.2 cm (0.6 - 1.1) LVIDd: 3.8 cm (3.9 - 5.3) LVPWd: 1.2 cm (0.6 - 1.1) IVSs: 1.9 cm LVIDs: 2.5 cm LVPWs: 1.8 cm LA Diam: 3.1 cm (2.7 - 3.8) Ao Diam: 3.5 cm (2.0 - 3.7) AV Cusp: 2.2 cm (1.5 - 2.6) MV EXCURSION: 14.924 mm (> 18.000) MV EF SLOPE: 52 mm/s (70 - 150) EPSS: 0.2 cm MV E Yo: 0.57 m/s MV DecT: 252 ms MV A Yo: 0.72 m/s MV E/A Ratio: 0.79 RAP: 5.00 mmHg RVSP: 31.05 mmHg FINDINGS -------- Sinus rhythm. This was a technically difficult study with suboptimal views. The left ventricular size is normal. There is borderline concentric left ventricular hypertrophy. Overall left ventricular systolic function is normal with, an EF between 60 - 65 %. The right ventricle is mildly enlarged. The left atrium is normal in size. The right atrium is normal in size. Lumason used There is an interatrial closure device in place without evidence of shunt. There is mild aortic valve sclerosis. The mitral valve is normal. Mild tricuspid regurgitation present. Right ventricular systolic pressure is normal at < 35 mmHg. The pulmonic valve was not well visualized. The aortic root size is normal. Normal inferior vena cava with normal inspiratory collapse consistent with estimated right atrial pre ssure of 5 mmHg. Echo free space indicative of a pericardial fat pad. There is no pericardial effusion. CONCLUSIONS -------- 1. The left ventricular size is normal. 2. There is borderline concentric left ventricular hypertrophy. 3. Overall left ventricular systolic function is normal with, an EF between 60 - 65 %. 4. The right ventricle is mildly enlarged. 5. Lumason used 6. There is an interatrial closure device in place without evidence of shunt. 7. There is mild aortic valve sclerosis. 8. Mild tricuspid regurgitation present. 9. Echo free space indicative of a pericardial fat pad. 10. There is no pericardial effusion. [employer] DISPATCHER: Erica Kapadia RDCS
--- NOTE | 2021-01-10 09:54 | P.PN ---
Subjective Progress Note Date: 01/10/21 This is a 71-year-old female seen in consultation because of uncontrolled hypertension with episodes of high blood pressure as well as low blood pressure. She was admitted with generalized weakness numbness and tingling. Supposedly blood pressure at home was 220 at home but since her hospitalization pressures have been reasonably well controlled. She has been extensively worked up. CT scan of the abdomen does not show any adrenal or renal pathology, TSH is normal plasma aldosterone is normal but the Renin is high, at 85 height: 4 mL normal being less than 57. 24-hour urine for metanephrines is normal, cortisol is 3 mcg/dL She had a echocardiogram that showed a patent foramen ovale on this and had transvenous occlusion procedure done yesterday 01/09/2021 Postprocedure today she is feeling significantly improved. States her heartburn has resolved. She had a good night sleep. Denies any visual blurring headache dizziness chest pain shortness of breath nausea vomiting. Blood pressures are well-controlled, blood pressure in the 120s Objective - Vital Signs Vital signs: Vital Signs Temp 98.0 F 01/10/21 08:00 Pulse 78 01/10/21 08:00 Resp 16 01/10/21 08:00 BP 116/55 01/10/21 08:00 Pulse Ox 94 L 01/10/21 08:00 Intake & Output 01/09/21 01/10/21 01/10/21 17:59 06:59 18:59 Intake Total Output Total Balance Weight Intake: Oral Output: Urine Other: Voiding Method Toilet # Voids On examination she is awake alert oriented. She is comfortable HEENT exam no JVP neck is supple no facial asymmetry Lungs clear to auscultation good air entry bilaterally Heart sounds unremarkable normal S1 and S2 no murmur rub gallop Abdomen soft nontender obese Extremity exam was no edema Neurologically awake alert oriented - Labs CBC & Chem 7: 01/09/21 07:42 01/10/21 06:49 Labs: Abnormal Lab Results - Last 24 Hours (Table) 01/09/21 01/09/21 01/09/21 Range/Units 12:01 16:29 20:34 Carbon Dioxide (22-30) mmol/L Glucose (74-99) mg/dL POC Glucose (mg/dL) 166 H 182 H 141 H (75-99) mg/dL Total Protein (6.3-8.2) g/dL Albumin (3.5-5.0) g/dL 01/10/21 01/10/21 Range/Units 06:10 06:49 Carbon Dioxide 31 H (22-30) mmol/L Glucose 113 H (74-99) mg/dL POC Glucose (mg/dL) 124 H (75-99) mg/dL Total Protein 4.9 L (6.3-8.2) g/dL Albumin 2.9 L (3.5-5.0) g/dL Assessment and Plan Assessment: Impression 1. Uncontrolled hypertension cause not very clear all secondary causes have been ruled out. Blood pressure very well controlled on multiple medications now 2. Patent foramen ovale status post closure of the foramen dated 01/09/2021 3. History of coronary artery disease, status post PCI to RCA May 2018. 4. Left-sided weakness resolved. 5. Diabetes mellitus 6. Obesity 7. Sleep apnea on CPAP Recommendation 1. Maintain current medications 2. She needs weight loss. 3. The higher anion possibly could be from the renin producing tumor or renal artery stenosis but this seems unlikely given the normal CT scan of the abdomen . 4. Will obtain MRI of the kidney with gadolinium if necessary based on blood pressures at home constantly monitored 2-3 times a day and recorded and brought to our office
[2021-01-10 12:00] LABS: Glucose,Whole Blood 131 mg/dL (75-99)
[2021-01-10] MEDS: SODIUM CHLORIDE 0.9% 1,000 ML IV SCH (12:21)
[2021-01-10 12:37] VITALS: BP 116/60; PULSE 86; TEMP 98.1
--- NOTE | 2021-01-10 12:52 | P.PN ---
Subjective Progress Note Date: 01/10/21 HISTORY OF PRESENT ILLNESS: 01/03/2021 This is a 70-year-old female with a past medical history significant for diabetes mellitus, GERD, hyperlipidemia, hypertension, TIA, coronary artery disease with previous STEMI in 2018 with PCI to RCA. Patient follows in the office with Dr. Zepeda. We have been asked to see the patient in consultation for hypertension. Patient examined at the bedside. Patient originally presented to [facility] secondary to elevated blood pressure. Patient states she took he r blood pressure at home and it was 220/100s. She reports her blood pressure usually runs in the 130s to 140s. She states that she saw her roll mill operator on who discontinued her lisinopril and started her on losartan because she was experiencing a cough secondary to the lisinopril. Patient reports left- sided weakness and numbness and tingling in her lips. She also reports some left-sided chest discomfort that she describes as a burning sensation which she reports was similar to her previous heart attack. Patient also reports feeling palpitations over the past few months. No previous history of atrial fibrillation. She reports a history of a loop recorder insertion. She states this was interrogated last month when she was admitted to the hospital for weakness and hypertension. Patient states she was told there was no arrhythmias or atrial fibrillation noted at that time. Most recent echocardiogram obtained in October 2020 reveals ejection fraction 55-60%, mild mitral regurgitation, and mild tricuspid regurgitation. Cardiac catheterization history: Patient underwent cardiac catheterization in May 2018 at [facility] secondary to inferior STEMI. Patient underwent PCI of the proximal RCA which was 99% occluded. Additional findings included 20% ostial LAD, 10% proximal LAD, 20% mid LAD. Left circumflex: Codominant artery, at the bifurcation site of the OM and the left circumflex, though left circumflex shows a borderline 4050 percent lesion, this vessel is of small size and not at target for intervention. The OM branch which is a sizable branch was a 20% diffuse proximal stenosis. The patient had abnormal stress test in October 2020. This was reviewed by Dr. Nagel during her previous hospitalization in November [address] Nagel suggested that the patient may have had some progression of the lesion in the circumflex which may account for her abnormal stress test. EKG reveals sinus mechanism with PVCs. Left axis deviation. Chest xray completed at outside facility was negative for acute process Laboratory data: WBC 6.54. Hemoglobin 12.4. Platelet count 166. Sodium 143. Potassium 3.5. BUN 7. Creatinine 0.5. Troponin negative 1 Current home cardiac medications include carvedilol 6.25 mg daily, aspirin 81 mg daily, losartan 25 mg daily, amlodipine 5 mg daily, Imdur 30 mg daily, Zetia 10 mg daily, Cardura 4 mg daily, and Lipitor 40 mg daily. 01/04/2021 Limited echo completed revealing ejection fraction 55-60% 01/06/2021 Cardiology personally spoke with [facility] rep yesterday regarding loop recorder interrogation. Device rep states there was no evidence of atrial fibrillation upon interrogation. SOFIYA yesterday revealing small PFO. She also underwent removal of loop recorder. Lower extremity Doppler negative for DVT. She is reporting burning of left sided chest that has been ongoing for the past few weeks. 01/07/2021 Brain MRI yesterday revealing age-related changes of atrophy and chronic small vessel ischemia. No subacute ischemia. Patient continues to report a burning sensation on the left side of her chest. She is requesting to undergo cardiac catheterization. She also discussed PFO closure versus antico agulation with neurology and is interested in PFO closure. 01/09: Yesterday, patient underwent heart catheterization that revealed patent stent within the right coronary artery. Mild nonobstructive disease in the LAD and circumflex. She subsequently underwent percutaneous closure of the patent foramen ovale. The patient complains of feeling tired. She has had hematoma and bleeding to the right groin site. She is complaining of numbness lower extremities. Pulse rechecked by Doppler. Patient is afebrile, heart rate 70s, blood pressure 136/69 and pulse ox 96% on room air. CBC is unremarkable. Potassium is 2.9 and has been replaced. Creatinine 0.58. 01/10: She denies any new complaints today. Repeat creatinine is 0.58 and potassium 3.8. She has been afebrile, heart rate 78, blood pressure 116/55 and pulse ox 94% on room air. Repeat echocardiogram revealed EF of 60-65% with borderline concentric left ventricle hypertrophy, anterior atrial closure device in place without evidence of shunt, mild aortic valve sclerosis, mild tricuspid regurgitation. Patient is cleared for discharge home today PHYSICAL EXAM: GENERAL: Well-developed in no acute distress. HEENT: Head is normocephalic. Pupils are equal, round. Sclerae anicteric. Mucous membranes of the mouth are moist. Neck supple. No JVD or thyromegaly LUNGS: Respirations even and unlabored. Lungs essentially clear to auscultation bilaterally. HEART: Regular rate and rhythm. S1 and S2 heard. ABDOMEN: Soft. Nondistended. Nontender. EXTREMITIES: Left-sided weakness. No clubbing or cyanosis. Peripheral pulses intact. No lower extremity edema NEUROLOGIC: Awake and alert. Oriented x 3. ASSESSMENT: Hypertensive emergency Left-sided weakness with left-sided facial numbness, suspect CVA, however MRI of the brain negative for acute stroke Coronary artery disease with PCI to RCA, May 2018 Palpitations with history of loop recorder insertion Status post removal of loop recorder History of TIA 2 Hyperlipidemia Diabetes mellitus Sleep apnea with CPAP use Morbid obesity: BMI 43.4 SOFIYA revealing small PFO status post percutaneous closure Hypokalemia status post replacement PLAN: Patient is cleared for discharge home Follow up with Dr. Zepeda in one week Nurse practitioner note has been reviewed by physician. Signing provider agrees with the documented findings, assessment, and plan of care. Objective - Vital Signs Vital signs: Vital Signs Temp 98.0 F 01/10/21 08:00 Pulse 78 01/10/21 08:00 Resp 16 01/10/21 08:00 BP 116/55 01/10/21 08:00 Pulse Ox 94 L 01/10/21 08:00 Intake & Output 01/09/21 01/10/21 01/10/21 17:59 06:59 18:59 Intake Total Output Total Balance Weight Intake: Oral Output: Urine Other: Voiding Method Toilet # Voids - Labs CBC & Chem 7: 01/09/21 07:42 01/10/21 06:49 Labs: Abnormal Lab Results - Last 24 Hours (Table) 01/09/21 01/09/21 01/09/21 Range/Units 12:01 16:29 20:34 Carbon Dioxide (22-30) mmol/L Glucose (74-99) mg/dL POC Glucose (mg/dL) 166 H 182 H 141 H (75-99) mg/dL Total Protein (6.3-8.2) g/dL Albumin (3.5-5.0) g/dL 01/10/21 01/10/21 Range/Units 06:10 06:49 Carbon Dioxide 31 H (22-30) mmol/L Glucose 113 H (74-99) mg/dL POC Glucose (mg/dL) 124 H (75-99) mg/dL Total Protein 4.9 L (6.3-8.2) g/dL Albumin 2.9 L (3.5-5.0) g/dL
--- NOTE | 2021-01-10 14:19 | P.PN ---
Progress Note - Text Progress Note Date: 01/10/21 Patient is stable. She is passing flatus and having stools. On exam her lesser stable. Abdomen soft. Resolved constipation. Patient is receiving supportive care.
--- NOTE | 2021-01-10 14:37 | DS ---
DISCHARGE SUMMARY DATE OF DISCHARGE: 01/10/2021. DISCHARGE MEDICATIONS: 1. Aspirin 325 mg daily. 2. Colace 100 mg b.i.d. 3. Coreg 6.25 b.i.d. 4. Lipitor 80 daily. 5. MiraLAX 17 grams daily. 6. Nitrostat 0.4 mg sublingual daily p.r.n. for chest pain. 7. Plavix 75 mg daily. 8. Multivitamin daily. 9. Protonix 40 mg daily. 10.Neurontin 300 mg q.8 hours. 11.Cardura 4 mg daily. 12.Magnesium 30 mg daily. 13.Metformin 500 daily. 14.Zetia 10 mg daily. 15.Amlodipine 5 mg daily. 16.Synthroid 88 mcg daily. 17.Prednisone 10 mg daily. 18.James red omega-3 Krill tablets daily. 19.Flonase 0.4 mg daily. 20.Imdur 30 mg daily. 21.Reglan 5 mg a.c. and q.h.s. 22.Cozaar 25 mg daily. CONDITION: Stable. PROGNOSIS: Guarded. Ambulate as tolerated. HISTORY: This is a 70-year-old white female came into the hospital with TIA type symptomatology, hypertension acceleration, hypertension urgency and encephalopathy. The patient was found to have a PFO which was surgically fixed by Dr. Dutta during heart catheterization. She was found to have mild coronary artery blockage. She was stabilized and sent home in stable condition. Follow up Dr. Nakul Aburto in his office in a week and follow up with Cardiology to get stitches removed from the left anterior chest for which an event monitor was removed. Follow up patient's symptoms of TIA include blurred vision, numbness, and tingling, lightheadedness with ambulation, hypertension acceleration all did disappear when PFO was fixed. There was some concern about 10 white spots in the brain on a CT scan MRI which showed no stroke, but possibly she has MS, but this will be followed up only if symptoms return. Currently all symptoms are resolved. MMODL / IJN: [id number] /
== END 2021-01-10 15:00 | disposition home or self-care (01) | DRG 274 ==
LOC: EC 18:27 → 6NMEDSUR 18:58 → OBSVTOIN 01-03 11:23 → 3SCARD 01-03 11:47
PROVIDERS: ADMIT Family Medicine; ATTEND Family Medicine
DX: Q21.1 Atrial septal defect (principal); I67.4 Hypertensive encephalopathy; G81.94 Hemiplegia, unspecified affecting left nondominant side; I16.1 Hypertensive emergency; Z68.41 Body mass index [BMI] 40.0-44.9, adult; G45.9 Transient cerebral ischemic attack, unspecified; I49.3 Ventricular premature depolarization; I25.2 Old myocardial infarction; I25.10 Atherosclerotic heart disease of native coronary artery without angina pectoris; M06.9 Rheumatoid arthritis, unspecified; M50.30 Other cervical disc degeneration, unspecified cervical region; M51.26 Other intervertebral disc displacement, lumbar region; M51.36 Other intervertebral disc degeneration, lumbar region; M79.7 Fibromyalgia; E11.51 Type 2 diabetes mellitus with diabetic peripheral angiopathy without gangrene; E11.65 Type 2 diabetes mellitus with hyperglycemia; E66.01 Morbid (severe) obesity due to excess calories; Z20.822 Contact with and (suspected) exposure to COVID-19; G47.33 Obstructive sleep apnea (adult) (pediatric); E78.5 Hyperlipidemia, unspecified; G62.9 Polyneuropathy, unspecified; I10 Essential (primary) hypertension; K59.09 Other constipation; R29.810 Facial weakness; T46.4X5A Adverse effect of angiotensin-converting-enzyme inhibitors, initial encounter; R05 Cough; Z79.02 Long term (current) use of antithrombotics/antiplatelets; Z79.82 Long term (current) use of aspirin; Z79.84 Long term (current) use of oral hypoglycemic drugs; Z79.890 Hormone replacement therapy; Z79.899 Other long term (current) drug therapy; Z80.7 Family history of other malignant neoplasms of lymphoid, hematopoietic and related tissues; Z82.49 Family history of ischemic heart disease and other diseases of the circulatory system; G35 Multiple sclerosis; Z80.0 Family history of malignant neoplasm of digestive organs; Z86.73 Personal history of transient ischemic attack (TIA), and cerebral infarction without residual deficits; Z87.442 Personal history of urinary calculi; Z87.891 Personal history of nicotine dependence; Z90.710 Acquired absence of both cervix and uterus; Z95.5 Presence of coronary angioplasty implant and graft; Z99.89 Dependence on other enabling machines and devices
CPT/HCPCS: 33286; 70496; 70498; 70551; 71046; 80053; 81001; 82088; 83036; 83835; 84132; 84244; 84443; 84484; 85025; 85027; 93005; 93306; 93308; 93312; 93320; 93325; 93458; 93580; 93662; 93970; 99285

== ENCOUNTER 2021-01-14 18:52 | Inpatient (IN) | payer MEDICARE ==
--- NOTE | 2021-01-14 19:32 | ED ---
Weakness HPI - General Chief complaint: Weakness Stated complaint: Weakness Time Seen by Provider: 01/14/21 19:00 Source: patient, EMS, RN notes reviewed Mode of arrival: EMS - History of Present Illness Initial comments: This is a 70-year-old female history of a recent surgical repair of a "hole in her heart" who presents with complaints of generalized weakness is been increas ed over last day or so with some sweats also apparently low oxygen saturation some decrease oral intake also left flank pain. Pain was sharp in nature she denies any overt chest pain cough shortness of breath or chills no other complaints or modifying factors at this time she does state that she tested negative for Covid 19 and her last admission. MD Complaint: generalized weakness - Related Data Home Medications Medication Instructions Recorded Confirmed Multivitamins, Thera [Multivitamin 1 tab PO DAILY 10/12/16 01/14/21 (formulary)] Pantoprazole [Protonix] 40 mg PO DAILY 10/05/19 01/14/21 Doxazosin [Cardura] 4 mg PO DAILY 02/18/20 01/14/21 Ezetimibe [Zetia] 10 mg PO DAILY 02/18/20 01/14/21 Gabapentin [Neurontin] 300 mg PO Q8H 02/18/20 01/14/21 Magnesium 30mg 30 mg PO DAILY 02/18/20 01/14/21 metFORMIN HCL 500 mg PO DAILY 02/18/20 01/14/21 Levothyroxine Sodium [Synthroid] 88 mcg PO DAILY 11/26/20 01/14/21 amLODIPine BESYLATE 5 mg PO DAILY 11/26/20 01/14/21 Krill/Om-3/Dha/Epa/Phospho/Ast 1 tab PO DAILY 12/21/20 01/14/21 [Megared [place]-3 Krill 350 mg] predniSONE 10 mg PO DAILY 12/21/20 01/14/21 Losartan [Cozaar] 25 mg PO DAILY 01/02/21 01/14/21 carvediloL [Coreg] 6.25 mg PO AC-BID 01/14/21 01/14/21 Previous Rx's Medication Instructions Recorded Isosorbide Mononitrate ER [Imdur] 30 mg PO DAILY 90 Days #90 12/25/20 tab.er.24h Metoclopramide [Reglan] 5 mg PO ACHS 30 Days #120 tab 12/25/20 Tamsulosin [Flomax] 0.4 mg PO PC-BRKFST 90 Days #90 12/25/20 cap.er.24h Aspirin 325 mg PO DAILY 90 Days #90 tab 01/10/21 Atorvastatin [Lipitor] 80 mg PO HS 90 Days #90 tab 01/10/21 Clopidogrel [Plavix] 75 mg PO DAILY 90 Days #90 tab 01/10/21 Docusate [Colace] 100 mg PO BID 90 Days #180 cap 01/10/21 Nitroglycerin Sl Tabs [Nitrostat] 0.4 mg SUBLINGUAL Q5M PRN 90 Days 01/10/21 #90 tab polyethylene glycoL 3350 [Miralax] 17 gm PO DAILY 30 Days #30 01/10/21 powd.pack Allergies Allergy/AdvReac Type Severity Reaction Status Date / Time No Known Allergies Allergy Verified 01/14/21 20:07 Review of Systems ROS Statement: Those systems with pertinent positive or pertinent negative responses have been documented in the HPI. ROS Other: All systems not noted in ROS Statement are negative. Past Medical History Past Medical History: Diabetes Mellitus, GERD/Reflux, Hyperlipidemia, Hypertension, Myocardial Infarction (ND), Osteoarthritis (OA), Rheumatoid Arthritis (RA), Sleep Apnea/CPAP/BIPAP Additional Past Medical History / Comment(s): HX Kidney Stones. DIVERTICULITIS . BLOOD PRESSURE FLUCTUATES, LOOP recorder over a year ago. NARROWING OF SPINE W/ DISC PROB. USES C-PAP Last Myocardial Infarction Date:: 06/28/18 History of Any Multi-Drug Resistant Organisms: None Reported Past Surgical History: Cholecystectomy, Heart Catheterization With Stent, Hysterectomy Additional Past Surgical History / Comment(s): Lithotripsy, basket retrieval of kidney stones, COLONOSCOPY, loop recorder Past Anesthesia/Blood Transfusion Reactions: No Reported Reaction Additional Past Anesthesia/Blood Transfusion Reaction / Comment(s): BLOOD TRANSUFSION WHEN HAVING HER CHILDREN-NO REACTIONS TO BLOOD. Date of Last Stent Placement:: 06/28/18 Past Psychological History: No Psychological Hx Reported Smoking Status: Former smoker Past Alcohol Use History: None Reported Past Drug Use History: None Reported - Past Family History Mother Family Medical History: Cancer Additional Family Medical History / Comment(s): HAD LYMPHOMA THEN 15 YEARS LATER HAD SMALL CELL CA(TOMACH) Father Family Medical History: Myocardial Infarction (ND) Additional Family Medical History / Comment(s): PT WAS 11 YEARS OLD WHEN HER FATHER FROM MASSIVE ND. Brother(s) Family Medical History: Coronary Artery Disease (CAD), Myocardial Infarction (ND) Additional Family Medical History / Comment(s): Pt had a 42 yrs old brother of a massive ND and another brother who had CABG at the age of 39yrs. Sister(s) Family Medical History: Cancer General Exam - General Exam Comments Initial Comments: This is a well-developed well-nourished awake alert oriented 3 female General appearance: alert, in no apparent distress Head exam: Present: atraumatic, normocephalic, normal inspection Eye exam: Present: normal appearance, PERRL, EOMI. Absent: scleral icterus, conjunctival injection, periorbital swelling ENT exam: Present: mucous membranes dry Neck exam: Present: normal inspection. Absent: tenderness, meningismus, lymphadenopathy Respiratory exam: Present: normal lung sounds bilaterally. Absent: respiratory distress, wheezes, rales, rhonchi, stridor Cardiovascular Exam: Present: regular rate, normal rhythm, normal heart sounds. Absent: systolic murmur, diastolic murmur, rubs, gallop, clicks GI/Abdominal exam: Present: soft, tenderness (Mild left flank area tenderness no guarding no rebound), normal bowel sounds. Absent: distended, guarding, rebound, rigid Extremities exam: Present: full ROM, normal capillary refill, other (Hematoma and noted at the right inguinal region is at the cath site. No drainage no increased localized temperature). Absent: tenderness, pedal edema, joint swelling, calf tenderness Back exam: Present: normal inspection Neurological exam: Present: alert, oriented X3, CN II-XII intact Psychiatric exam: Present: normal affect, normal mood Skin exam: Present: warm, dry, intact, normal color. Absent: rash Course Vital Signs 01/14/21 18:59 Temperature 99.6 F Pulse Rate 81 Respiratory 18 Rate Blood Pressure 132/61 O2 Sat by Pulse 88 L Oximetry - Reevaluation(s) Reevaluation #1: 01/14/21 19:36 I did review the operative report patient did have a patent foramen ovale closure on the last admission. EKG Findings - EKG Results: EKG: interpreted by GEO, sinus rhythm (Neuro sinus rhythm 82 TX interval 150 to QRS 72 QT since QTC 364/450 low-voltage QRS) Medical Decision Making - Medical Decision Making I did discuss findings the patient and her . Patient is positive for Covid 19 and has been demonstrating a cough as well as drop in her pulse ox on room air. She has no known pulmonary disease. Patient will be admitted case discussed with Dr. Aburto. Pulmonary medicine will be consulted. CT chest will be ordered. - Lab Data Result diagrams: 01/14/21 19:33 01/14/21 19:33 Lab Results 01/14/21 01/14/21 01/14/21 Range/Units 19:33 19:33 19:33 WBC 5.9 (3.8-10.6) k/uL RBC 3.98 (3.80-5.40) m/uL Hgb 12.2 (11.4-16.0) gm/dL Hct 35.6 (34.0-46.0) % MCV 89.5 (80.0-100.0) fL MCH 30.5 (25.0-35.0) pg MCHC 34.1 (31.0-37.0) g/dL RDW 15.1 (11.5-15.5) % Plt Count 148 L (150-450) k/uL MPV 8.0 Neutrophils % 72 % Lymphocytes % 22 % Monocytes % 5 % Eosinophils % 0 % Basophils % 0 % Neutrophils # 4.2 (1.3-7.7) k/uL Lymphocytes # 1.3 (1.0-4.8) k/uL Monocytes # 0.3 (0-1.0) k/uL Eosinophils # 0.0 (0-0.7) k/uL Basophils # 0.0 (0-0.2) k/uL Sodium 133 L (137-145) mmol/L Potassium 3.5 (3.5-5.1) mmol/L Chloride 100 (98-107) mmol/L Carbon Dioxide 28 (22-30) mmol/L Anion Gap 5 mmol/L BUN 7 (7-17) mg/dL Creatinine 0.50 L (0.52-1.04) mg/dL Est GFR (CKD-EPI)AfAm >90 (>60 ml/min/1.73 sqM) Est GFR (CKD-EPI)NonAf >90 (>60 ml/min/1.73 sqM) Glucose 104 H (74-99) mg/dL Plasma Lactic Acid Jey (0.7-2.0) mmol/L Calcium 7.8 L (8.4-10.2) mg/dL Magnesium 1.6 (1.6-2.3) mg/dL Total Bilirubin 0.8 (0.2-1.3) mg/dL AST 48 H (14-36) U/L ALT 39 H (4-34) U/L Alkaline Phosphatase 58 (38-126) U/L Creatine Kinase 327 H (30-135) U/L Troponin I (0.000-0.034) ng/mL NT-Pro-B Natriuret Pep 245 pg/mL Total Protein 5.2 L (6.3-8.2) g/dL Albumin 3.1 L (3.5-5.0) g/dL Lipase 96 (23-300) U/L Urine Color Urine Appearance (Clear) Urine pH (5.0-8.0) Ur Specific [place] (1.001-1.035) Urine Protein (Negative) Urine Glucose (UA) (Negative) Urine Ketones (Negative) Urine Blood (Negative) Urine Nitrite (Negative) Urine Bilirubin (Negative) Urine Urobilinogen (<2.0) mg/dL Ur Leukocyte Esterase (Negative) Urine WBC (0-5) /hpf Ur Squamous Epith Cells (0-4) /hpf Urine Bacteria (None) /hpf Coronavirus (PCR) (Not Detectd) 01/14/21 01/14/21 01/14/21 Range/Units 19:33 19:33 19:33 WBC (3.8-10.6) k/uL RBC (3.80-5.40) m/uL Hgb (11.4-16.0) gm/dL Hct (34.0-46.0) % MCV (80.0-100.0) fL MCH (25.0-35.0) pg MCHC (31.0-37.0) g/dL RDW (11.5-15.5) % Plt Count (150-450) k/uL MPV Neutrophils % % Lymphocytes % % Monocytes % % Eosinophils % % Basophils % % Neutrophils # (1.3-7.7) k/uL Lymphocytes # (1.0-4.8) k/uL Monocytes # (0-1.0) k/uL Eosinophils # (0-0.7) k/uL Basophils # (0-0.2) k/uL Sodium (137-145) mmol/L Potassium (3.5-5.1) mmol/L Chloride (98-107) mmol/L Carbon Dioxide (22-30) mmol/L Anion Gap mmol/L BUN (7-17) mg/dL Creatinine (0.52-1.04) mg/dL Est GFR (CKD-EPI)AfAm (>60 ml/min/1.73 sqM) Est GFR (CKD-EPI)NonAf (>60 ml/min/1.73 sqM) Glucose (74-99) mg/dL Plasma Lactic Acid Jey 0.9 (0.7-2.0) mmol/L Calcium (8.4-10.2) mg/dL Magnesium (1.6-2.3) mg/dL Total Bilirubin (0.2-1.3) mg/dL AST (14-36) U/L ALT (4-34) U/L Alkaline Phosphatase (38-126) U/L Creatine Kinase (30-135) U/L Troponin I 0.013 (0.000-0.034) ng/mL NT-Pro-B Natriuret Pep pg/mL Total Protein (6.3-8.2) g/dL Albumin (3.5-5.0) g/dL Lipase (23-300) U/L Urine Color Light Yellow Urine Appearance Clear (Clear) Urine pH 7.0 (5.0-8.0) Ur Specific [place] 1.005 (1.001-1.035) Urine Protein Negative (Negative) Urine Glucose (UA) Negative (Negative) Urine Ketones Negative (Negative) Urine Blood Negative (Negative) Urine Nitrite Negative (Negative) Urine Bilirubin Negative (Negative) Urine Urobilinogen <2.0 (<2.0) mg/dL Ur Leukocyte Esterase Moderate H (Negative) Urine WBC 3 (0-5) /hpf Ur Squamous Epith Cells 2 (0-4) /hpf Urine Bacteria Rare H (None) /hpf Coronavirus (PCR) (Not Detectd) 01/14/21 Range/Units 19:33 WBC (3.8-10.6) k/uL RBC (3.80-5.40) m/uL Hgb (11.4-16.0) gm/dL Hct (34.0-46.0) % MCV (80.0-100.0) fL MCH (25.0-35.0) pg MCHC (31.0-37.0) g/dL RDW (11.5-15.5) % Plt Count (150-450) k/uL MPV Neutrophils % % Lymphocytes % % Monocytes % % Eosinophils % % Basophils % % Neutrophils # (1.3-7.7) k/uL Lymphocytes # (1.0-4.8) k/uL Monocytes # (0-1.0) k/uL Eosinophils # (0-0.7) k/uL Basophils # (0-0.2) k/uL Sodium (137-145) mmol/L Potassium (3.5-5.1) mmol/L Chloride (98-107) mmol/L Carbon Dioxide (22-30) mmol/L Anion Gap mmol/L BUN (7-17) mg/dL Creatinine (0.52-1.04) mg/dL Est GFR (CKD-EPI)AfAm (>60 ml/min/1.73 sqM) Est GFR (CKD-EPI)NonAf (>60 ml/min/1.73 sqM) Glucose (74-99) mg/dL Plasma Lactic Acid Jey (0.7-2.0) mmol/L Calcium (8.4-10.2) mg/dL Magnesium (1.6-2.3) mg/dL Total Bilirubin (0.2-1.3) mg/dL AST (14-36) U/L ALT (4-34) U/L Alkaline Phosphatase (38-126) U/L Creatine Kinase (30-135) U/L Troponin I (0.000-0.034) ng/mL NT-Pro-B Natriuret Pep pg/mL Total Protein (6.3-8.2) g/dL Albumin (3.5-5.0) g/dL Lipase (23-300) U/L Urine Color Urine Appearance (Clear) Urine pH (5.0-8.0) Ur Specific [place] (1.001-1.035) Urine Protein (Negative) Urine Glucose (UA) (Negative) Urine Ketones (Negative) Urine Blood (Negative) Urine Nitrite (Negative) Urine Bilirubin (Negative) Urine Urobilinogen (<2.0) mg/dL Ur Leukocyte Esterase (Negative) Urine WBC (0-5) /hpf Ur Squamous Epith Cells (0-4) /hpf Urine Bacteria (None) /hpf Coronavirus (PCR) Detected A (Not Detectd) - Radiology Data Radiology results: report reviewed (Imaging reviewed no acute findings), image reviewed Disposition Clinical Impression: COVID-19, Febrile illness, acute, Hypoxemia Disposition: ADMITTED IP TO THIS HOSP Condition: Fair Referrals: Nakul Aburto MD [Primary Care Provider] - 1-2 days
[2021-01-14 19:52] LABS: Basophils % (A) 0 %; Eosinophils % (A) 0 %; HCT 35.6 % (34.0-46.0); HGB 12.2 gm/dL (11.4-16.0); Lymphocytes # (A) 1.3 k/uL (1.0-4.8); Lymphocytes % (A) 22 %; MCH 30.5 pg (25.0-35.0); MCHC 34.1 g/dL (31.0-37.0); MCV 89.5 fL (80.0-100.0); Monocytes # (A) 0.3 k/uL (0-1.0); Monocytes % (A) 5 %; Neutrophils # (A) 4.2 k/uL (1.3-7.7); Neutrophils % (A) 72 %; Platelet Count 148 k/uL (150-450); RBC 3.98 m/uL (3.80-5.40); RDW 15.1 % (11.5-15.5); WBC 5.9 k/uL (3.8-10.6)
[2021-01-14 19:53] LABS: Appearance,Urine Clear (Clear); Bacteria,Urine Rare /hpf; Bilirubin,Urine Negative (Negative); Blood,Urine Negative (Negative); Color,Urine Light Yellow; Glucose,Urine (UA) Negative (Negative); Ketones,Urine Negative (Negative); Leukocyte Esterase,Urine Moderate (Negative); Nitrite,Urine Negative (Negative); Protein,Urine Negative (Negative); Specific Gravity,Urine 1.005 (1.001-1.035); Squamous Epithelial Cell,Urine 2 /hpf (0-4); Urobilinogen,Urine <2.0 mg/dL (<2.0); WBC,Urine 3 /hpf (0-5)
[2021-01-14 20:01] LABS: ALT 39 U/L (4-34); AST 48 U/L (14-36); African American GFR (CKD) >90 (>60 ml/min/1.73 sqM); Albumin 3.1 g/dL (3.5-5.0); Alkaline Phosphatase 58 U/L (38-126); Anion Gap 5 mmol/L; Blood Urea Nitrogen 7 mg/dL (7-17); Calcium 7.8 mg/dL (8.4-10.2); Carbon Dioxide 28 mmol/L (22-30); Chloride 100 mmol/L (98-107); Creatine Kinase 327 U/L (30-135); Glucose 104 mg/dL (74-99); Lipase 96 U/L (23-300); Magnesium 1.6 mg/dL (1.6-2.3); Non-African American GFR(CKD) >90 (>60 ml/min/1.73 sqM); Potassium 3.5 mmol/L (3.5-5.1); Sodium 133 mmol/L (137-145); Total Bilirubin 0.8 mg/dL (0.2-1.3); Total Protein 5.2 g/dL (6.3-8.2)
--- NOTE | 2021-01-14 20:18 | XR ---
EXAMINATION TYPE: XR chest 2V DATE OF EXAM: 01/14/2021 COMPARISON: 01/09/2021 HISTORY: Chest pain TECHNIQUE: 2 views FINDINGS: There is no heart failure nor confluent pneumonic infiltrate. Costophrenic angles are clear . There are chest leads. Bony thorax appears intact. IMPRESSION: No active cardiopulmonary disease. No adverse change compared to old exam.
[2021-01-14] MEDS ORDERED: NALOXONE 0.4 MG/ML 1 ML VIAL IV PRN (20:50)
[2021-01-14] MEDS ORDERED: NITROGLYCERIN SL TABS 0.4 MG TAB SUBLINGUAL PRN (20:53)
--- NOTE | 2021-01-14 21:16 | CT ---
EXAMINATION TYPE: CT angio chest DATE OF EXAM: 01/14/2021 COMPARISON: 07/26/2017 HISTORY: SOB, covid + CT DLP: 602.4 mGycm Automated exposure control for dose reduction was used. CONTRAST: Performed with IV Contrast, patient injected with 100 mL of Isovue 370. There are 3-D post processed images. There are mild bilateral pleural effusions. There is some linear infiltrate and atelectasis at both l [place] bases. Heart size is fairly normal. There is no pericardial effusion. There is no mediastinal janna nopathy. There are no hilar masses. Thoracic aorta appears intact. There is no aneurysm. There is no dissection. The ascending aorta marilyn ures 3.4 cm. There is normal contrast opacification of the pulmonary arteries. There are no filling d efects. There is degenerative hypertrophic spurring in the lower thoracic spine. There is no compression frac ture. Sternum is intact. Upper abdominal soft tissues are intact. There is cholecystectomy. IMPRESSION: No evidence of pulmonary embolism. Compared to old exam there is appearance of new small bilateral pleural effusions and patchy pulmonar y infiltrates and atelectasis. There is groundglass patchy interstitial density.
[2021-01-14] MEDS ORDERED: AZITHROMYCIN 500 MG in SODIUM CHLORIDE 0.9% 250 ML IVPB SCH (22:00)
[2021-01-14] MEDS: SODIUM CHLORIDE 0.9% 1,000 ML IV SCH (22:20)
[2021-01-14] MEDS: ATORVASTATIN 80 MG TAB PO SCH (22:21)
[2021-01-14] MEDS: METOCLOPRAMIDE 5 MG TAB PO SCH (22:21)
[2021-01-14] MEDS: GABAPENTIN 300 MG CAP PO SCH (22:21)
[2021-01-14] MEDS: DOCUSATE 100 MG CAP PO SCH (22:21)
[2021-01-14] MEDS: MELATONIN 3 MG TABLET PO SCH (22:25)
[2021-01-15] MEDS: methylPREDNISolone SOD SUCCI 125 MG/2 ML VIAL IV SCH ×2 (00:27→10:38)
[2021-01-15] MEDS ORDERED: ALBUTEROL HFA INHALER INHALATION SCH (02:00)
[2021-01-15 05:00] LABS: Glucose,Whole Blood 141 mg/dL (75-99)
[2021-01-15] MEDS: GABAPENTIN 300 MG CAP PO SCH ×3 (05:05→19:45)
[2021-01-15] MEDS: LEVOTHYROXINE 88 MCG TAB PO SCH (05:05)
[2021-01-15] MEDS: ALBUTEROL HFA INHALER INHALATION SCH ×3 (08:28→19:32)
[2021-01-15 08:53] LABS: Basophils # (A) 0.01 X 10*3/uL (0.00-0.10); Basophils % (A) 0.2 %; Eosinophils # (A) 0 X 10*3/uL (0.04-0.35); Eosinophils % (A) 0 %; HCT 36.3 % (37.2-46.3); HGB 11.6 g/dL (12.0-15.0); Lymphocytes # (A) 0.81 X 10*3/uL (0.90-5.00); Lymphocytes % (A) 14.1 %; MCH 29.3 pg (27.0-32.0); MCV 91.7 fL (80.0-97.0); Mean Platelet Volume 11.4 fL (9.5-12.2); Monocytes # (A) 0.15 X 10*3/uL (0.20-1.00); Monocytes % (A) 2.6 %; Neutrophils # (A) 4.74 X 10*3/uL (1.80-7.70); Neutrophils % (A) 82.8 %; Platelet Count 178 X 10*3/uL (140-440); RBC 3.96 X 10*6/uL (4.10-5.20); RDW 15.4 % (11.5-14.5); WBC 5.73 X 10*3/uL (4.50-10.00)
[2021-01-15] MEDS ORDERED: PHOSPHO PO SCH (09:00)
[2021-01-15] MEDS ORDERED: DHA PO SCH (09:00)
[2021-01-15] MEDS ORDERED: predniSONE 10 MG TAB PO SCH (09:00)
[2021-01-15] MEDS ORDERED: KRILL PO SCH (09:00)
[2021-01-15] MEDS ORDERED: ENOXAPARIN 40 MG/0.4 ML SYRINGE SQ SCH (09:00)
[2021-01-15] MEDS ORDERED: CLOPIDOGREL 75 MG TAB PO SCH (09:00)
[2021-01-15] MEDS ORDERED: amLODIPine 5 MG TAB PO SCH (09:00)
[2021-01-15] MEDS ORDERED: [UNRECOGNIZED DRUG - OTHER] PO SCH (09:00)
[2021-01-15] MEDS ORDERED: ASPIRIN 325 MG TAB PO SCH (09:00)
[2021-01-15] MEDS ORDERED: EPA PO SCH (09:00)
[2021-01-15] MEDS ORDERED: ENOXAPARIN 60 MG/0.6 ML SYRINGE SQ SCH (09:00)
[2021-01-15] MEDS ORDERED: AST PO SCH (09:00)
[2021-01-15] MEDS: METOCLOPRAMIDE 5 MG TAB PO SCH ×4 (09:18→19:46)
[2021-01-15] MEDS: EZETIMIBE 10 MG TAB PO SCH (09:20)
[2021-01-15] MEDS: PANTOPRAZOLE 40 MG TABLET PO SCH (10:37)
[2021-01-15] MEDS: CHOLECALCIFEROL 25 MCG (1000 IU) TABLET PO SCH (10:37)
[2021-01-15] MEDS: ASCORBIC ACID 500 MG TAB PO SCH (10:37)
[2021-01-15] MEDS: MAGNESIUM OXIDE 400 MG TAB PO SCH (10:37)
[2021-01-15] MEDS: ISOSORBIDE MONONITRATE ER 30 MG TAB.ER.24H PO SCH ×2 (10:37→14:47)
--- NOTE | 2021-01-15 10:37 | P.CNPUL ---
History of Present Illness Consult date: 01/15/21 Requesting physician: Nakul Aburto Reason for consult: dyspnea, hypoxemia, abnormal CXR/CT Chief complaint: Weakness, fatigue, shortness of breath, dyspnea on exertion. History of present illness: 70-year-old female, who presents to the emergency room, brought in by EMS, with complaints of generalized weakness, sweats, low saturations, poor oral intake, fatigue, and shortness of breath on exertion. The patient recently had a repair of a patent foramen ovale. This was done at this hospital. The patient was in the emergency room only saw her. She was getting saline at 20 mL an hour, and also 4 L nasal cannula. She could barely open her eye she was feeling so weak and fatigue. She apparently tested negative for COVID 19 when she was hospitalized for her recent surgery. She has not been feeling well for a number of days. Probably 4 or 5 at least maybe a bit more. A chest x-ray was done and did not show any acute abnormality. CT angiogram showed no evidence of pulmonary embolism, new small bilateral pleural effusions, and patchy pulmonary infiltrates, and atelectasis, with a groundglass appearance. White count was 5.73, hemoglobin 11.6, hematocrit 36.3, and platelet count 178,000. D-dimer was 1.03, sodium 133, potassium 3.5, chlorides 100, CO2 28, anion gap 5, BUN 7, creatinine 0.5. Review of Systems REVIEW OF SYSTEMS: CONSTITUTIONAL: Extreme weakness and fatigue, poor oral intake. NEUROLOGIC: [ Negative.] HEENT: [ Negative.] CARDIAC: [Negative.] PULMONARY: Shortness of breath, cough, dyspnea on exertion. GI: [Negative.] : [Negative.] RHEUMATOLOGIC: [ Negative.] IMMUNOLOGIC: [ Negative.] ENDOCRINE: [Negative. ] DERMATOLOGIC: [Negative.] Past Medical History Past Medical History: Diabetes Mellitus, GERD/Reflux, Hyperlipidemia, Hypertension, Myocardial Infarction (MD), Osteoarthritis (OA), Rheumatoid Arthritis (RA), Sleep Apnea/CPAP/BIPAP Additional Past Medical History / Comment(s): HX Kidney Stones. DIVERTICULITIS . BLOOD PRESSURE FLUCTUATES, LOOP recorder over a year ago. NARROWING OF SPINE W/ DISC PROB. USES C-PAP Last Myocardial Infarction Date:: 06/28/18 History of Any Multi-Drug Resistant Organisms: None Reported Past Surgical History: Cholecystectomy, Heart Catheterization With Stent, Hysterectomy Additional Past Surgical History / Comment(s): Lithotripsy, basket retrieval of kidney stones, COLONOSCOPY, loop recorder Past Anesthesia/Blood Transfusion Reactions: No Reported Reaction Additional Past Anesthesia/Blood Transfusion Reaction / Comment(s): BLOOD TRANSUFSION WHEN HAVING HER CHILDREN-NO REACTIONS TO BLOOD. Date of Last Stent Placement:: 06/28/18 Past Psychological History: No Psychological Hx Reported Smoking Status: Former smoker Past Alcohol Use History: None Reported Past Drug Use History: None Reported - Past Family History Mother Family Medical History: Cancer Additional Family Medical History / Comment(s): HAD LYMPHOMA THEN 15 YEARS LATER HAD SMALL CELL CA(TOMACH) Father Family Medical History: Myocardial Infarction (MD) Additional Family Medical History / Comment(s): PT WAS 11 YEARS OLD WHEN HER FATHER FROM MASSIVE MD. Brother(s) Family Medical History: Coronary Artery Disease (CAD), Myocardial Infarction (MD) Additional Family Medical History / Comment(s): Pt had a 42 yrs old brother of a massive MD and another brother who had CABG at the age of 39yrs. Sister(s) Family Medical History: Cancer Medications and Allergies Home Medications Medication Instructions Recorded Confirmed Type Multivitamins, Thera [Multivitamin 1 tab PO DAILY 10/12/16 01/14/21 History (formulary)] Pantoprazole [Protonix] 40 mg PO DAILY 10/05/19 01/14/21 History Doxazosin [Cardura] 4 mg PO DAILY 02/18/20 01/14/21 History Ezetimibe [Zetia] 10 mg PO DAILY 02/18/20 01/14/21 History Gabapentin [Neurontin] 300 mg PO Q8H 02/18/20 01/14/21 History Magnesium 30mg 30 mg PO DAILY 02/18/20 01/14/21 History metFORMIN HCL 500 mg PO DAILY 02/18/20 01/14/21 History Levothyroxine Sodium [Synthroid] 88 mcg PO DAILY 11/26/20 01/14/21 History amLODIPine BESYLATE 5 mg PO DAILY 11/26/20 01/14/21 History Krill/Om-3/Dha/Epa/Phospho/Ast 1 tab PO DAILY 12/21/20 01/14/21 History [Megared [place]-3 Krill 350 mg] predniSONE 10 mg PO DAILY 12/21/20 01/14/21 History Isosorbide Mononitrate ER [Imdur] 30 mg PO DAILY 90 Days #90 12/25/20 01/14/21 Rx tab.er.24h Metoclopramide [Reglan] 5 mg PO ACHS 30 Days #120 tab 12/25/20 01/14/21 Rx Tamsulosin [Flomax] 0.4 mg PO PC-BRKFST 90 Days #90 12/25/20 01/14/21 Rx cap.er.24h Losartan [Cozaar] 25 mg PO DAILY 01/02/21 01/14/21 History Aspirin 325 mg PO DAILY 90 Days #90 tab 01/10/21 01/14/21 Rx Atorvastatin [Lipitor] 80 mg PO HS 90 Days #90 tab 01/10/21 01/14/21 Rx Clopidogrel [Plavix] 75 mg PO DAILY 90 Days #90 tab 01/10/21 01/14/21 Rx Docusate [Colace] 100 mg PO BID 90 Days #180 cap 01/10/21 01/14/21 Rx Nitroglycerin Sl Tabs [Nitrostat] 0.4 mg SUBLINGUAL Q5M PRN 90 Days 01/10/21 01/14/21 Rx #90 tab polyethylene glycoL 3350 [Miralax] 17 gm PO DAILY 30 Days #30 01/10/21 01/14/21 Rx powd.pack carvediloL [Coreg] 6.25 mg PO AC-BID 01/14/21 01/14/21 History Allergies Allergy/AdvReac Type Severity Reaction Status Date / Time No Known Allergies Allergy Verified 01/14/21 20:07 Physical Exam Osteopathic Statement: *. No significant issues noted on an osteopathic structural exam other than those noted in the History and Physical/Consult. Vitals: Vital Signs Temp Pulse Resp BP Pulse Ox 01/15/21 09:00 98.9 F 120 H 22 133/56 93 L 01/15/21 05:00 98.2 F 84 20 133/56 94 L 01/15/21 00:29 90 18 113/61 93 L 01/14/21 20:50 90 20 121/50 96 01/14/21 18:59 99.6 F 81 18 132/61 88 L Intake and Output 01/14/21 01/15/21 01/15/21 22:59 06:59 14:59 Other: Weight 108.862 kg No acute distress, oriented 3. Nasal O2 at 4 L. No conversational dyspnea for use of accessory muscles. HEENT examination is grossly unremarkable. Mucous membranes are moist. No oral lesions. Neck supple. Full range of motion. No adenopathy thyromegaly or neck vein distention. Cardiovascular examination reveals regular rhythm rate. S1-S2 normal. No S3 or S4. No discernible murmur noted. Heart rate is 120. Lungs reveal bilateral rhonchi, and some basilar crackles. Breath sounds equal bilaterally. She does not take deep breaths. No wheezes. Abdomen soft bowel sounds are heard. No masses or tenderness. Extremities are intact. No cyanosis clubbing or edema. Skin is without rash or lesion. Neurologic examination is brief but nonfocal. Results - Laboratory Findings CBC and BMP: 01/15/21 04:55 01/14/21 19:33 PT/INR, D-dimer D-Dimer 1.03 mg/L FEU (<0.60) H 01/14/21 22:12 Abnormal lab findings: Abnormal Labs 01/14/21 01/14/21 01/14/21 19:33 19:33 19:33 RBC Hgb Hct RDW Plt Count 148 L Lymphocytes # Monocytes # Eosinophils # D-Dimer Sodium 133 L Creatinine 0.50 L Glucose 104 H POC Glucose (mg/dL) Calcium 7.8 L AST 48 H ALT 39 H Creatine Kinase 327 H Total Protein 5.2 L Albumin 3.1 L Ur Leukocyte Esterase Moderate H Urine Bacteria Rare H Coronavirus (PCR) 01/14/21 01/14/21 01/15/21 19:33 22:12 04:55 RBC 3.96 L Hgb 11.6 L Hct 36.3 L RDW 15.4 H Plt Count Lymphocytes # 0.81 L Monocytes # 0.15 L Eosinophils # 0 L D-Dimer 1.03 H Sodium Creatinine Glucose POC Glucose (mg/dL) Calcium AST ALT Creatine Kinase Total Protein Albumin Ur Leukocyte Esterase Urine Bacteria Coronavirus (PCR) Detected A 01/15/21 04:57 RBC Hgb Hct RDW Plt Count Lymphocytes # Monocytes # Eosinophils # D-Dimer Sodium Creatinine Glucose POC Glucose (mg/dL) 141 H Calcium AST ALT Creatine Kinase Total Protein Albumin Ur Leukocyte Esterase Urine Bacteria Coronavirus (PCR) - Diagnostic Findings Chest x-ray: image reviewed CT scan - chest: image reviewed Assessment and Plan Assessment: Acute hypoxemic respiratory failure, secondary to COVID 19 pneumonia/pneumonitis. History of diabetes mellitus. History of hyperlipidemia. Recent PFO repair. History of gastroesophageal reflux disease. History of myocardial infarction. History of hypertension. History of rheumatoid arthritis. History of degenerative joint disease. History of sleep apnea syndrome, currently on CPAP. History of kidney stones. History of diverticular disease. History of chronic back pain. Status post heart catheterization with stent placement. Plan: Plan dated 01/15/2021. The patient will be started on REM, Decadron, Lovenox, and vitamins C, D3, and zinc. The patient had a recent negative COVID test, when she was in the hospital recently, for the repair of her patent foramen ovale. Currently, she is on 4 L nasal cannula, and saline at 20 mL an hour. Chest x-ray and CAT scans have both been reviewed. D-dimer is 1.03. AST and ALT are minimally elevated, and urine is showing moderate leukocyte esterase, and rare bacteria. The patient's Lovenox will be reduced. Antibiotic is discontinued. A pro- calcitonin level will be checked, and corticosteroids will be discontinued. We will continue to follow. Prognosis is guarded. Additional recommendations and suggestions are forthcoming. Time with Patient: Greater than 30
[2021-01-15] MEDS: TAMSULOSIN 0.4 MG CAP.ER.24H PO SCH (10:38)
[2021-01-15] MEDS: carvediloL 6.25 MG TAB PO SCH ×2 (10:38→19:44)
[2021-01-15] MEDS: MULTIVITAMINS, THERA 1 EACH TAB PO SCH (10:38)
[2021-01-15] MEDS: metFORMIN 500 MG TAB PO SCH (10:39)
[2021-01-15] MEDS ORDERED: REMDESIVIR 200 MG in SODIUM CHLORIDE 0.9% 250 ML IVPB ONE (11:00)
--- NOTE | 2021-01-15 11:02 | P.CRDCN ---
History of Present Illness History of present illness: HISTORY OF PRESENTING ILLNESS This is a pleasant 70-year-old female past medical history significant for coronary artery disease status post PCI to the RCA 2018 in the setting of S [place], nonobstructive disease of the LAD and circumflex, hypertension, dyslipidemia, diabetes mellitus, PFO status post closure and TIA. She follows in the office with Dr. Zepeda. We have been asked to see in consultation for postoperative evaluation. She was here and discharged 01/10/21 after suffering multiple TIA's and undergoing LHC, loop recorder removal, SOFIYA and PFO closure. She unfortunately was having fever, chills, diaphoresis, cough, weakness, left thoracic rib pain and shortness of breath. She has been diagnosed with acute Covid 19. She is seen and examined on the stretcher in the ER. She appears tired and weak. She states she is having a burning pain along with left thoracic region. She has the dressing in place to the left anterior chest wall from her recent loop recorder removal. Most recent echocardiogram obtained January 09 revealed preserved LV systolic function with ejection fraction 60-65% with evidence of closure device in place with no shunt noted. DIAGNOSTICS EKG reveals sinus mechanism with no acute abnormalities noted. CTA negative for PE, new small bilateral pleural effusion and patchy pulmonary infiltrates noted. Chest xray negative for an acute cardiopulmonary process. Laboratory reviewed, WBC 5.7, hemoglobin 11.6, platelets 178, d-dimer 1.03, sodium 133, potassium 3.5, creatinine 0.5, magnesium 1.6, ProBNP 245 and troponin negative 1. Current cardiac medications include aspirin 325 mg daily, atorvastatin 80 mg daily, Plavix 75 mg daily, cardura 4 mg daily, Zetia 10 mg daily, Imdur 30 mg daily, losartan 25 mg daily, amlodipine 5 mg daily and carvedilol 6.25 mg twice a day. REVIEW OF SYSTEMS At the time of my exam: CONSTITUTIONAL: Denies fever or chills. CARDIOVASCULAR: Denies chest pain, shortness of breath, orthopnea, PND or palpitations. RESPIRATORY: Denies cough. GASTROINTESTINAL: Denies abdominal pain, diarrhea, constipation, nausea or vomiting. MUSCULOSKELETAL: Denies myalgias. NEUROLOGIC: Denies numbness, tingling, headacbe or weakness. ENDOCRINE: Denies fatigue, weight change, polydipsia or polyurina. GENITOURINARY: Denies burning, hematuria or urgency with micturation. HEMATOLOGIC: Denies history of anemia or bleeding. PHYSICAL EXAMINATION Blood pressure 133/56 heart rate 120 afebrile and maintaining oxygen saturation on nasal cannula. CONSTITUTIONAL: No apparent distress. HEENT: Head is normocephalic. Pupils are equal, round. Sclerae anicteric. Mucous membranes of the mouth are moist. No JVD. No carotid bruit. CHEST EXAMINATION: Expiratory wheezes. No rales or rhonchi. No chest wall tenderness is noted on palpation or with deep breathing. HEART EXAMINATION: Regular rate and rhythm. S1, S2 heard. No murmurs, gallops or rub. ABDOMEN: Soft, nontender. Positive bowel sounds. EXTREMITIES: 2+ peripheral pulses, no lower extremity edema and no calf tenderness. NEUROLOGIC EXAMINATION: Patient is awake, alert and oriented x3. ASSESSMENT Covid 19 Recent PFO closure, loop recorder removal and left heart cath Recent TIA Coronary artery disease s/p PCI 2018 Hypertension Dyslipidemia Diabetes mellitus PLAN Site of loop recorder removal is clean, dry and intact with steri-strips in place. Advised the patient to let these fall off naturally. There is no signs of infection, drainage or redness at the site. After PFO closure it is recommended to have an echo done in 1-week and 4-weeks. Her 1-week echo would be due today. We will order this while she is here. Decrease aspirin to 81 mg daily. Ongoing treatment of covid 19. Follow up with Dr. Zepeda as previously scheduled. No further cardiac recommendations at this time. Thank you kindly for this consultation. Nurse Practitioner note has been reviewed, I agree with a documented findings and plan of care. Patient was seen and examined. Past Medical History Past Medical History: Diabetes Mellitus, GERD/Reflux, Hyperlipidemia, Hypertension, Myocardial Infarction ([place]), Osteoarthritis (OA), Rheumatoid Arth ritis (RA), Sleep Apnea/CPAP/BIPAP Additional Past Medical History / Comment(s): HX Kidney Stones. DIVERTICULITIS . BLOOD PRESSURE FLUCTUATES, LOOP recorder over a year ago. NARROWING OF SPINE W/ DISC PROB. USES C-PAP Last Myocardial Infarction Date:: 06/28/18 History of Any Multi-Drug Resistant Organisms: None Reported Past Surgical History: Cholecystectomy, Heart Catheterization With Stent, Hy sterectomy Additional Past Surgical History / Comment(s): Lithotripsy, basket retrieval of kidney stones, COLONOSCOPY, loop recorder Past Anesthesia/Blood Transfusion Reactions: No Reported Reaction Additional Past Anesthesia/Blood Transfusion Reaction / Comment(s): BLOOD TRANSUFSION WHEN HAVING HER CHILDREN-NO REACTIONS TO BLOOD. Date of Last Stent Placement:: 06/28/18 Past Psychological History: No Psychological Hx Reported Smoking Status: Former smoker Past Alcohol Use History: None Reported Past Drug Use History: None Reported - Past Family History Mother Family Medical History: Cancer Additional Family Medical History / Comment(s): HAD LYMPHOMA THEN 15 YEARS LATER HAD SMALL CELL CA(TOMACH) Father Family Medical History: Myocardial Infarction ([place]) Additional Family Medical History / Comment(s): PT WAS 9 YEARS OLD WHEN HER FATHER FROM MASSIVE [place]. Brother(s) Family Medical History: Coronary Artery Disease (CAD), Myocardial Infarction ([place]) Additional Family Medical History / Comment(s): Pt had a 42 yrs old brother of a massive [place] and another brother who had CABG at the age of 39yrs. Sister(s) Family Medical History: Cancer Medications and Allergies Home Medications Medication Instructions Recorded Confirmed Type Multivitamins, Thera [Multivitamin 1 tab PO DAILY 10/12/16 01/14/21 History (formulary)] Pantoprazole [Protonix] 40 mg PO DAILY 10/05/19 01/14/21 History Doxazosin [Cardura] 4 mg PO DAILY 02/18/20 01/14/21 History Ezetimibe [Zetia] 10 mg PO DAILY 02/18/20 01/14/21 History Gabapentin [Neurontin] 300 mg PO Q8H 02/18/20 01/14/21 History Magnesium 30mg 30 mg PO DAILY 02/18/20 01/14/21 History metFORMIN HCL 500 mg PO DAILY 02/18/20 01/14/21 History Levothyroxine Sodium [Synthroid] 88 mcg PO DAILY 11/26/20 01/14/21 History amLODIPine BESYLATE 5 mg PO DAILY 11/26/20 01/14/21 History Krill/Om-3/Dha/Epa/Phospho/Ast 1 tab PO DAILY 12/21/20 01/14/21 History [Megared Ruth-3 Krill 350 mg] predniSONE 10 mg PO DAILY 12/21/20 01/14/21 History Isosorbide Mononitrate ER [Imdur] 30 mg PO DAILY 90 Days #90 12/25/20 01/14/21 Rx tab.er.24h Metoclopramide [Reglan] 5 mg PO ACHS 30 Days #120 tab 12/25/20 01/14/21 Rx Tamsulosin [Flomax] 0.4 mg PO PC-BRKFST 90 Days #90 12/25/20 01/14/21 Rx cap.er.24h Losartan [Cozaar] 25 mg PO DAILY 01/02/21 01/14/21 History Aspirin 325 mg PO DAILY 90 Days #90 tab 01/10/21 01/14/21 Rx Atorvastatin [Lipitor] 80 mg PO HS 90 Days #90 tab 01/10/21 01/14/21 Rx Clopidogrel [Plavix] 75 mg PO DAILY 90 Days #90 tab 01/10/21 01/14/21 Rx Docusate [Colace] 100 mg PO BID 90 Days #180 cap 01/10/21 01/14/21 Rx Nitroglycerin Sl Tabs [Nitrostat] 0.4 mg SUBLINGUAL Q5M PRN 90 Days 01/10/21 01/14/21 Rx #90 tab polyethylene glycoL 3350 [Miralax] 17 gm PO DAILY 30 Days #30 01/10/21 01/14/21 Rx powd.pack carvediloL [Coreg] 6.25 mg PO AC-BID 01/14/21 01/14/21 History Allergies Allergy/AdvReac Type Severity Reaction Status Date / Time No Known Allergies Allergy Verified 01/14/21 20:07 Physical Exam Vitals: Vital Signs Temp Pulse Resp BP Pulse Ox 01/15/21 09:00 98.9 F 120 H 22 133/56 93 L 01/15/21 05:00 98.2 F 84 20 133/56 94 L 01/15/21 00:29 90 18 113/61 93 L 01/14/21 20:50 90 20 121/50 96 01/14/21 18:59 99.6 F 81 18 132/61 88 L Intake and Output 01/14/21 01/15/21 01/15/21 22:59 06:59 14:59 Other: Weight 108.862 kg Results 01/15/21 04:55 01/14/21 19:33 Cardiac Enzymes 01/14/21 01/14/21 Range/Units 19:33 19:33 AST 48 H (14-36) U/L Troponin I 0.013 (0.000-0.034) ng/mL CBC 01/14/21 01/15/21 Range/Units 19:33 04:55 WBC 5.9 5.73 (3.8-10.6) k/uL RBC 3.98 3.96 L (3.80-5.40) m/uL Hgb 12.2 11.6 L (11.4-16.0) gm/dL Hct 35.6 36.3 L (34.0-46.0) % Plt Count 148 L 178 (150-450) k/uL Comprehensive Metabolic Panel 01/14/21 Range/Units 19:33 Sodium 133 L (137-145) mmol/L Potassium 3.5 (3.5-5.1) mmol/L Chloride 100 (98-107) mmol/L Carbon Dioxide 28 (22-30) mmol/L BUN 7 (7-17) mg/dL Creatinine 0.50 L (0.52-1.04) mg/dL Glucose 104 H (74-99) mg/dL Calcium 7.8 L (8.4-10.2) mg/dL AST 48 H (14-36) U/L ALT 39 H (4-34) U/L Alkaline Phosphatase 58 (38-126) U/L Total Protein 5.2 L (6.3-8.2) g/dL Albumin 3.1 L (3.5-5.0) g/dL Current Medications Generic Name Dose Route Start Last Admin Trade Name Freq PRN Reason Stop Dose Admin Acetaminophen 650 mg 01/14/21 20:50 Acetaminophen Tab 325 Mg Tab PO Q6HR PRN Mild Pain or Fever > 100.5 Albuterol Sulfate 2 puff 01/15/21 08:00 01/15/21 08:28 Albuterol Hfa Inhaler INHALATION 2 puff RT-TID [facility] Administration Amlodipine Besylate 5 mg 01/15/21 09:00 Amlodipine 5 Mg Tab PO DAILY [facility] Ascorbic Acid 1,000 mg 01/15/21 09:00 Ascorbic Acid 500 Mg Tab PO DAILY [facility] Aspirin 325 mg 01/15/21 09:00 Aspirin 325 Mg Tab PO DAILY [facility] Atorvastatin Calcium 80 mg 01/14/21 21:00 01/14/21 22:21 Atorvastatin 80 Mg Tab PO 80 mg HS [facility] Administration Carvedilol 6.25 mg 01/15/21 07:30 Carvedilol 6.25 Mg Tab PO AC-BID [facility] Cholecalciferol 100 mcg 01/15/21 09:00 Cholecalciferol 25 Mcg (1000 Iu) Tablet PO DAILY [facility] Clopidogrel Bisulfate 75 mg 01/15/21 09:00 Clopidogrel 75 Mg Tab PO DAILY [facility] Docusate Sodium 100 mg 01/14/21 21:00 01/14/21 22:21 Docusate 100 Mg Cap PO 100 mg BID [facility] Administration Doxazosin Mesylate 4 mg 01/15/21 09:00 Doxazosin 4 Mg Tab PO DAILY [facility] Ezetimibe 10 mg 01/15/21 09:00 01/15/21 09:20 Ezetimibe 10 Mg Tab PO 10 mg DAILY [facility] Administration Enoxaparin Sodium 60 mg 01/15/21 09:00 01/15/21 09:19 Enoxaparin 60 Mg/0.6 Ml Syringe SQ 60 mg Q12HR [facility] Administration Gabapentin 300 mg 01/14/21 21:00 01/15/21 05:05 Gabapentin 300 Mg Cap PO 300 mg Q8H [facility] Administration Sodium Chloride 1,000 mls @ 20 mls/hr 01/14/21 21:00 01/14/21 22:20 Saline 0.9% IV 20 mls/hr .Q24H [facility] Administration Azithromycin 500 mg/ Sodium 250 mls @ 250 mls/hr 01/14/21 22:00 01/14/21 22:25 Chloride IVPB 250 mls/hr DAILY@2100 [facility] Administration Isosorbide Mononitrate 30 mg 01/15/21 09:00 Isosorbide Mononitrate Er 30 Mg Tab.Er.24h PO DAILY [facility] Levothyroxine Sodium 88 mcg 01/15/21 06:30 01/15/21 05:05 Levothyroxine 88 Mcg Tab PO 88 mcg DAILY@0630 [facility] Administration Losartan Potassium 25 mg 01/15/21 09:00 Losartan 25 Mg Tab PO DAILY [facility] Magnesium Oxide 400 mg 01/15/21 09:00 Magnesium Oxide 400 Mg Tab PO DAILY [facility] Melatonin 3 mg 01/14/21 21:45 01/14/21 22:25 Melatonin 3 Mg Tablet PO 3 mg HS [facility] Administration Metformin HCl 500 mg 01/15/21 07:30 Metformin 500 Mg Tab PO AC-BRKFST [facility] Methylprednisolone Sodium Succinate 60 mg 01/15/21 00:00 01/15/21 00:27 Methylprednisolone Sod Succi 125 Mg/2 Ml Vial IV 60 mg Q8HR [facility] Administration Metoclopramide HCl 5 mg 01/14/21 21:00 01/15/21 09:18 Metoclopramide 5 Mg Tab PO 5 mg ACHS [facility] Administration Multivitamins 1 each 01/15/21 09:00 Multivitamins, Thera 1 Each Tab PO DAILY [facility] Naloxone HCl 0.2 mg 01/14/21 20:50 Naloxone 0.4 Mg/Ml 1 Ml Vial IV Q2M PRN Opioid Reversal Nitroglycerin 0.4 mg 01/14/21 20:53 Nitroglycerin Sl Tabs 0.4 Mg Tab SUBLINGUAL Q5M PRN Chest Pain Pantoprazole Sodium 40 mg 01/15/21 07:30 Pantoprazole 40 Mg Tablet PO AC-BRKFST [facility] Polyethylene Glycol 17 gm 01/15/21 09:00 Polyethylene Glycol 3350 17 Gm Powd.Pack PO DAILY [facility] Tamsulosin HCl 0.4 mg 01/15/21 08:30 Tamsulosin 0.4 Mg Cap.Er.24h PO PC-BRKFST [facility] Zinc Sulfate 220 mg 01/15/21 09:00 Zinc Sulfate 220 Mg Cap PO DAILY [facility] Intake and Output 01/14/21 01/15/21 01/15/21 22:59 06:59 14:59 Other: Weight 108.862 kg 01/15/21 04:55 01/14/21 19:33
[2021-01-15] MEDS ORDERED: carvediloL 6.25 MG TAB PO STA (12:19)
[2021-01-15 13:27] LABS: African American GFR (CKD) 105.5 (60.0-200.0); Albumin 3.8 g/dL (3.80-4.90); Albumin/Globulin Ratio 2.53 (1.60-3.17); Anion Gap 14.5 mmol/L (4.00-12.00); Calcium 8.6 mg/dL (8.7-10.3); Carbon Dioxide 24.5 mmol/L (21.6-31.8); Globulin 1.5 g/dL (1.6-3.3); Non-African American GFR(CKD) 91.1 (60.0-200.0); Potassium 3.7 mmol/L (3.5-5.5); Total Bilirubin 0.8 mg/dL (0.3-1.2); Total Protein 5.3 g/dL (6.2-8.2)
--- NOTE | 2021-01-15 13:36 | ECHOF ---
Referral Reason:recent PFO closure, 1 week follow up echo MEASUREMENTS -------- HEIGHT: 160.0 cm WEIGHT: 108.9 kg BP: 111/53 RVIDd: 2.9 cm (< 3.3) IVSd: 1.5 cm (0.6 - 1.1) LVIDd: 4.0 cm (3.9 - 5.3) LVPWd: 1.4 cm (0.6 - 1.1) IVSs: 2.1 cm LVIDs: 3.0 cm LVPWs: 1.7 cm LA Diam: 3.4 cm (2.7 - 3.8) Ao Diam: 3.6 cm (2.0 - 3.7) AV Cusp: 2.1 cm (1.5 - 2.6) MV EXCURSION: 12.364 mm (> 18.000) MV EF SLOPE: 273 mm/s (70 - 150) EPSS: 0.1 cm RAP: 5.00 mmHg RVSP: 29.15 mmHg FINDINGS -------- Atrial fibrillation. This was a technically difficult study with suboptimal views. The left ventricular size is normal. There is moderate concentric left ventricular hypertrophy. O verall left ventricular systolic function is normal with, an EF between 55 - 60 %. The right ventricle is normal in size. The left atrium is normal in size. The right atrium is normal in size. 5 ml of Lumason was utilized for enhancement of images. There is an interatrial closure device in place without evidence of shunt. There is mild aortic valve sclerosis. The mitral valve leaflets are mildly thickened. Mild mitral annular calcification present. Mild tricuspid regurgitation present. Right ventricular systolic pressure is normal at < 35 mmHg. There is no pulmonic regurgitation present. The aortic root size is normal. IVC Not well visulized. There is a small pericardial effusion located near the left ventricle. CONCLUSIONS -------- 1. The left ventricular size is normal. 2. There is moderate concentric left ventricular hypertrophy. 3. Overall left ventricular systolic function is normal with, an EF between 55 - 60 %. 4. 5 ml of Lumason was utilized for enhancement of images. 5. There is an interatrial closure device in place without evidence of shunt. 6. There is mild aortic valve sclerosis. 7. The mitral valve leaflets are mildly thickened. 8. Mild mitral annular calcification present. 9. Mild tricuspid regurgitation present. 10. There is no pulmonic regurgitation present. 11. There is a small pericardial effusion located near the left ventricle. 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
[2021-01-15] MEDS: APIXABAN 5 MG TAB PO SCH ×2 (14:46→19:49)
[2021-01-15] MEDS: polyethylene glycoL 3350 17 GM POWD.PACK PO SCH (14:46)
[2021-01-15] MEDS: DOXAZOSIN 4 MG TAB PO SCH (14:47)
[2021-01-15] MEDS: ZINC SULFATE 220 MG CAP PO SCH (14:47)
[2021-01-15] MEDS: DOCUSATE 100 MG CAP PO SCH ×2 (14:47→19:45)
--- NOTE | 2021-01-15 14:59 | HP ---
HISTORY AND PHYSICAL This 70-year-old white female with dyspnea, hypoxemia, abnormal chest x-ray, CT scan and positive COVID came in with positive weakness, low saturations, after having a patent foramen ovale fixed on last admission. She is weak. She had positive test for COVID while admitted in the ER this time. She was negative on last admission. CT of the chest was negative for pulmonary embolism, patchy pulmonary infiltrates, atelectasis, ground-glass appearance. White count is 5.7, hemoglobin 11.6, platelets 178. D-dimer is 1.03. REVIEW OF SYSTEMS: Fourteen-point review of systems for extreme weakness, fatigue, poor oral intake, shortness of breath, cough. PAST MEDICAL HISTORY: Diabetes mellitus, GERD, dyslipidemia, hypertension, myocardial infarction, osteoarthritis, rheumatoid arthritis, obstructive sleep apnea. PAST SURGICAL HISTORY: Cholecystectomy, heart catheterization with stent, hysterectomy, recent loop recorder removed, lithotripsy, colonoscopy. SOCIAL HISTORY: Former smoker. FAMILY HISTORY: Mother with cancer, lymphoma. Father with myocardial infarction. Brother with coronary artery disease, myocardial infarction. Sister with cancer. MEDICATIONS: She takes: 1. Multivitamins. 2. Protonix 40 daily. 3. Cardura 4 mg daily. 4. Zetia 10 mg daily. 5. Neurontin 300 q.8. 6. Magnesium 30 mg daily. 7. Metformin 500 daily. 8. Synthroid 88 mcg daily. 9. Amlodipine 5 mg daily. 10.Prednisone 10 mg daily. 11.Imdur 30 mg daily. 12.Reglan 5 mg a.c. at bedtime. 13.Flomax 0.4 mg daily. 14.Cozaar 25 daily. 15.Lipitor 80 mg daily. 16.Plavix 75 daily. 17.Colace 100 b.i.d. 18.Nitroglycerin sublingual p.r.n. 19.Carvedilol 6.25 b.i.d. 20.MiraLAX 17 grams daily. ALLERGIES: No known drug allergies. PHYSICAL EXAMINATION: Temperature 98.9, pulse is 90s to 120s, respiratory 18 to 22, blood pressure is 113 to 130s over 50s to 60s, O2 of 93 to 96 on room air. She appears in no acute distress. Alert and oriented x3. She is on 4 L oxygen. HEENT: Normocephalic, atraumatic. CARDIOVASCULAR: S1, S2. LUNGS: Scattered rhonchi, crackles. minimal wheeze. ABDOMEN: Distended, obese. EXTREMITIES: No cyanosis, clubbing, edema. SKIN: No . NEUROLOGIC: Alert and orient x3. LABS: Labs reviewed. Sodium 133, potassium 3.5, hemoglobin 11.6, white count 5.7. D-dimer is 1.03. ASSESSMENT: 1. Acute hypoxemic respiratory failure secondary to COVID-19 pneumonia and pneumonitis. 2. Diabetes mellitus. 3. Dyslipidemia. 4. Status post patent foramen ovale repair. 5. Gastroesophageal reflux disease. 6. Coronary artery disease with stent. 7. Hypertension. 8. Rheumatoid arthritis. 9. Degenerative joint disease. 10.History of renal stones. 11.Diverticular disease. Prognosis is guarded. Lovenox dose will be continued. MMODL / IJN: [id number] /
[2021-01-15] MEDS: LOSARTAN 25 MG TAB PO SCH (15:13)
[2021-01-15 15:30] LABS: C Reactive Protein 4.1 mg/dL (0.0-0.8)
[2021-01-15 15:59] LABS: Glucose,Whole Blood 191 mg/dL (75-99)
[2021-01-15] MEDS: ATORVASTATIN 80 MG TAB PO SCH (19:45)
[2021-01-15] MEDS: SODIUM CHLORIDE 0.9% 1,000 ML IV SCH (19:46)
[2021-01-15 20:12] LABS: Glucose,Whole Blood 260 mg/dL (75-99)
[2021-01-15] MEDS: INSULIN ASPART (NovoLOG) 100 UNIT/ML VIAL SQ SCH (20:48)
[2021-01-15] MEDS: MELATONIN 3 MG TABLET PO SCH (20:50)
[2021-01-16] MEDS: ACETAMINOPHEN TAB 325 MG TAB PO PRN ×2 (03:31→12:12)
[2021-01-16] MEDS: guaiFENesin 600 MG TABLET.ER PO PRN ×2 (03:32→23:29)
[2021-01-16] MEDS: LEVOTHYROXINE 88 MCG TAB PO SCH (06:22)
[2021-01-16] MEDS: INSULIN ASPART (NovoLOG) 100 UNIT/ML VIAL SQ SCH ×4 (06:23→19:52)
[2021-01-16] MEDS: GABAPENTIN 300 MG CAP PO SCH ×3 (06:23→19:43)
[2021-01-16] MEDS: METOCLOPRAMIDE 5 MG TAB PO SCH ×4 (06:23→19:43)
[2021-01-16] MEDS: metFORMIN 500 MG TAB PO SCH (06:23)
[2021-01-16] MEDS: carvediloL 6.25 MG TAB PO SCH ×2 (06:23→17:36)
[2021-01-16] MEDS: PANTOPRAZOLE 40 MG TABLET PO SCH (06:23)
[2021-01-16 06:29] LABS: Glucose,Whole Blood 136 mg/dL (75-99)
[2021-01-16] MEDS ORDERED: ALBUTEROL HFA INHALER INHALATION PRN (06:43)
--- NOTE | 2021-01-16 06:54 | CONS ---
CONSULTATION DATE OF SERVICE: 01/15/2021 REASON FOR CONSULTATION: COVID-19 infection. HISTORY OF PRESENT ILLNESS: The patient is a 70-year-old female who was recently admitted and treated conservatively for repair of a patent foramen ovale through the right groin approach. The patient was subsequently stabilized and discharged home. The patient mentioned she was sent home on Monday and she did okay for a day or 2. However, since Monday, she started having more weakness which has been mostly generalized shortness of breath on minimal exertion and no appetite. Did have some nausea but no vomiting. No abdominal pain. Did have an episode of diarrhea. The patient did have some chills but denies high-grade fever. With these symptoms, the patient presented to the hospital. On arrival to the ER, the patient did have a low-grade fever of 99.6 degrees Fahrenheit. The patient was hypoxic with O2 sats of 88% on room air and is currently 93% on 2 L nasal cannula. Patient did have a normal white count with lymphopenia. D-dimer slightly elevated. Creatinine was normal. Liver enzymes are elevated. Urine was negative. Barnett PCR came back positive. The patient did have a chest x-ray that did not show any acute finding. However, CT angiogram the chest was negative for PE but did show ground-glass opacities. The patient has been admitted to the hospital. Infectious Disease was consulted for further management. REVIEW OF SYSTEMS: Positive points have been mentioned in HPI. Rest of systems are negative. PAST MEDICAL HISTORY: Diabetes mellitus, gastroesophageal reflux disease, hyperlipidemia, hypertension, [place], osteoarthritis, rheumatoid arthritis, sleep apnea, history of diverticulitis and patent foramen ovale. PAST SURGICAL HISTORY: Cholecystectomy, PTCA with stent, hysterectomy, lithotripsy, loop recorder placement. SOCIAL HISTORY: Remote history of smoking. No drinking or drug use. FAMILY HISTORY: Mother with history of lymphoma. Father history of [place]. ALLERGIES: No known drug allergies. MEDICATIONS WERE: The patient is currently on Tylenol, Ventolin, Eliquis, vitamin C, aspirin, Lipitor, Coreg, vitamin D3, Plavix, dexamethasone, Colace, Cardura, Neurontin, Zetia, NovoLog, Imdur, Synthroid, Cozaar, Mag oxide, melatonin, Glucophage, Reglan, Theragran, Narcan, Nitrostat, Protonix, MiraLAX, remdesivir, Flomax and zinc. PHYSICAL EXAMINATION: VITAL SIGNS: Blood pressure 123/56 with a pulse of 90, temperature , she is 93% on 2 L nasal cannula. GENERAL DESCRIPTION: Patient is an elderly female lying in bed in no distress. No tachypnea or accessory muscles of respiration use. HEENT: Examination shows slight pallor, no scleral icterus. Oral mucous membrane is dry. NECK: Trachea central, no thyromegaly. LUNGS: Unlabored breathing, decreased intensity of breath sounds, no wheeze. HEART: S1-S2, regular rate and rhythm. ABDOMEN: Soft, no tenderness. No guarding or rigidity. EXTREMITIES: No edema of the feet. The patient did have a large bruise in the right groin area. NEUROLOGICAL: Patient is awake, alert, oriented times two. Mood and affect normal. LABS: Hemoglobin 11.8, white count 5.73. BUN of 9, creatinine 0.6. Electrolytes have been normal. Liver enzymes are normal. Urine is negative. DIAGNOSTIC IMPRESSION: Patient admitted to the hospital with increasing shortness of breath and generalized weakness, hypoxemia, secondary to acute COVID-19 infection. Symptom have been for the last few days and hypoxemia did quality for remdesivir therapy. PLAN: 1. The patient has been started on remdesivir per protocol which she will continue. 2. Dexamethazone, Lovenox, zinc, ascorbic acid. 3. Droplet isolation and respiratory support. 4. We will follow on clinical condition and culture to further adjust medication if needed. Thank you for this consultation. Will follow this patient along with you. MMODL / IJN: [id number] /
[2021-01-16] MEDS: ALBUTEROL HFA INHALER INHALATION SCH ×3 (07:59→20:56)
[2021-01-16] MEDS: dexAMETHasone 2 MG TAB PO SCH (08:38)
[2021-01-16] MEDS: APIXABAN 5 MG TAB PO SCH ×2 (08:38→19:43)
[2021-01-16] MEDS: CLOPIDOGREL 75 MG TAB PO SCH (08:38)
[2021-01-16] MEDS: ASPIRIN 81 MG PO SCH (08:38)
[2021-01-16] MEDS: DOXAZOSIN 4 MG TAB PO SCH (08:39)
[2021-01-16] MEDS: LOSARTAN 25 MG TAB PO SCH (08:39)
[2021-01-16] MEDS: polyethylene glycoL 3350 17 GM POWD.PACK PO SCH (08:44)
[2021-01-16] MEDS: DOCUSATE 100 MG CAP PO SCH ×2 (08:44→19:43)
[2021-01-16] MEDS ORDERED: ENOXAPARIN 40 MG/0.4 ML SYRINGE SQ SCH (09:00)
[2021-01-16] MEDS ORDERED: ASPIRIN 81 MG PO SCH (09:00)
[2021-01-16 12:03] LABS: Glucose,Whole Blood 150 mg/dL (75-99)
[2021-01-16] MEDS: EZETIMIBE 10 MG TAB PO SCH (12:13)
[2021-01-16] MEDS: TAMSULOSIN 0.4 MG CAP.ER.24H PO SCH (12:13)
[2021-01-16] MEDS: MAGNESIUM OXIDE 400 MG TAB PO SCH (12:14)
[2021-01-16] MEDS: ZINC SULFATE 220 MG CAP PO SCH (12:14)
[2021-01-16] MEDS: REMDESIVIR 100 MG in SODIUM CHLORIDE 0.9% 250 ML IVPB SCH (12:15)
[2021-01-16] MEDS: CHOLECALCIFEROL 25 MCG (1000 IU) TABLET PO SCH (12:15)
[2021-01-16] MEDS: ASCORBIC ACID 500 MG TAB PO SCH (12:15)
[2021-01-16] MEDS: MULTIVITAMINS, THERA 1 EACH TAB PO SCH (12:15)
--- NOTE | 2021-01-16 13:25 | P.PN ---
Subjective Progress Note Date: 01/16/21 Principal diagnosis: CoVID 19 pneumonia 70-year-old female, who presents to the emergency room, brought in by EMS, with complaints of generalized weakness, sweats, low saturations, poor oral intake, fatigue, and shortness of breath on exertion. The patient recently had a repair of a patent foramen ovale. This was done at this hospital. The patient was in the emergency room only saw her. She was getting saline at 20 mL an hour, and also 4 L nasal cannula. She could barely open her eye she was feeling so weak and fatigue. She apparently tested negative for COVID 19 when she was hospitalized for her recent surgery. She has not been feeling well for a number of days. Probably 4 or 5 at least maybe a bit more. A chest x-ray was done and did not show any acute abnormality. CT angiogram showed no evidence of pulmonary embolism, new small bilateral pleural effusions, and patchy pulmonary infiltrates, and atelectasis, with a groundglass appearance. White count was 5.73, hemoglobin 11.6, hematocrit 36.3, and platelet count 178,000. D-dimer was 1.03, sodium 133, potassium 3.5, chlorides 100, CO2 28, anion gap 5, BUN 7, creatinine 0.5. The patient is seen today 01/16/2021 in follow-up on the selective care unit. She is currently resting fairly comfortably in bed. Awake and alert in no acute distress. Not much improved today compared to yesterday. She is still maintaining O2 saturation 90s on 2 L/m per nasal cannula. No IV fluids currently. She remains congested with cough. On Mucinex. Blood cultures reveal no growth. She is anti-coagulated with Eliquis. Remains on dexamethasone, vitamin supplements. This is day #2 of Remdesivir. Objective - Vital Signs Vital signs: Vital Signs Temp 98.2 F 01/16/21 08:34 Pulse 105 H 01/16/21 12:00 Resp 18 01/16/21 12:00 BP 118/60 01/16/21 12:00 Pulse Ox 92 L 01/16/21 12:00 Intake & Output 01/15/21 01/16/21 01/16/21 18:59 06:59 18:59 Intake Total 540 0 Output Total 450 Balance 540 -450 0 Weight 108.862 kg 112.5 kg Intake: Oral 540 0 Output: Urine 450 Other: Voiding Method Bedpan Bedpan # Voids 1 # Bowel Movements 1 - Exam GENERAL EXAM: Alert, pleasant 70-year-old female patient, on 2 L nasal cannula, comfortable in no apparent distress. HEAD: Normocephalic. EYES: Normal reaction of pupils, equal size. NOSE: Clear with pink turbinates. THROAT: No erythema or exudates. NECK: No masses, no JVD. CHEST: No chest wall deformity. LUNGS: Equal air entry with few scattered rhonchi, crackles in the posterior bases CVS: S1 and S2 normal with no audible murmur, regular rhythm. ABDOMEN: No hepatosplenomegaly, normal bowel sounds, no guarding or rigidity. SPINE: No scoliosis or deformity SKIN: No rashes CENTRAL NERVOUS SYSTEM: No focal deficits, tone is normal in all 4 extremities. EXTREMITIES: There is no peripheral edema. No clubbing, no cyanosis. Peripheral pulses are intact. - Labs CBC & Chem 7: 01/15/21 04:55 01/15/21 04:55 Labs: Abnormal Lab Results - Last 24 Hours (Table) 01/14/21 01/15/21 01/15/21 Range/Units 22:12 04:55 15:49 Anion Gap 14.50 H (4.00-12.00) mmol/L Glucose 167 H (70-110) mg/dL POC Glucose (mg/dL) 191 H (75-99) mg/dL Calcium 8.6 L (8.7-10.3) mg/dL AST 44 H (13-35) U/L ALT 45 H (8-44) U/L Lactate Dehydrogenase 544 H (120-246) U/L C-Reactive Protein 4.1 H (0.0-0.8) mg/dL Total Protein 5.3 L (6.2-8.2) g/dL Globulin 1.5 L (1.6-3.3) g/dL 01/15/21 01/16/21 01/16/21 Range/Units 20:10 06:12 11:35 Anion Gap (4.00-12.00) mmol/L Glucose (70-110) mg/dL POC Glucose (mg/dL) 260 H 136 H 150 H (75-99) mg/dL Calcium (8.7-10.3) mg/dL AST (13-35) U/L ALT (8-44) U/L Lactate Dehydrogenase (120-246) U/L C-Reactive Protein (0.0-0.8) mg/dL Total Protein (6.2-8.2) g/dL Globulin (1.6-3.3) g/dL Microbiology - Last 24 Hours (Table) 01/14/21 19:37 Blood Culture - Preliminary Blood No Growth after 24 hours 01/14/21 19:35 Blood Culture - Preliminary Blood No Growth after 24 hours Assessment and Plan Assessment: 1 Acute hypoxemic respiratory failure, secondary to COVID 19 pneumo romina/pneumonitis. 2 History of diabetes mellitus. 3 History of hyperlipidemia. 4 Recent PFO repair. 5 History of gastroesophageal reflux disease. 6 History of myocardial infarction. 7 History of hypertension. 8 History of rheumatoid arthritis. 9 History of degenerative joint disease. 10 History of sleep apnea syndrome, currently on CPAP. 11 History of kidney stones. 12 History of diverticular disease. 13 History of chronic back pain. 14 Status post heart catheterization with stent placement. Plan: The patient was seen and evaluated by Dr. Ríos This is day #2 of Remdesivir Anticoagulated with Eliquis Continue dexamethasone, vitamin supplements Repeat chest x-ray, inflammatory markers in the a.m. We will continue to follow I, the cosigning physician, performed a history & physical examination of the patient. Lungs sounds scattered rhonchi, crackles in the posterior bases. Maintaining good O2 saturations in the 90s on 2 L/m per nasal cannula. I discussed the assessment and plan of care with my nurse practitioner, Viki Olivarez. I attest to the above note as dictated by her.
[2021-01-16 17:11] LABS: Glucose,Whole Blood 251 mg/dL (75-99)
--- NOTE | 2021-01-16 17:41 | PN ---
PROGRESS NOTE DATE OF SERVICE: 01/16/2021 REASON FOR FOLLOWUP: Acute COVID-19 infection. INTERVAL HISTORY: The patient is currently afebrile. Patient is breathing comfortably. The patient denies having any chest pain. Occasional cough. No nausea. No abdominal pain or diarrhea. PHYSICAL EXAMINATION: Her blood pressure is 112/55, pulse of 90, temperature 97.5, she is 93% on 2 L nasal cannula. GENERAL DESCRIPTION: An elderly female lying in bed in no distress. RESPIRATORY SYSTEM: Unlabored breathing, decreased breath sounds at the bases, no wheeze. HEART: S1, S2. Regular rate and rhythm. ABDOMEN: Soft, no tenderness. LAB: Hemoglobin 9.5, white count 5.3, BUN of 9, creatinine 0.6. Blood cultures negative. DIAGNOSTIC IMPRESSION/PLAN: Patient with acute COVID-19 infection. The patient is currently on remdesivir day #2, to continue along with zinc, dexamethasone, ascorbic acid and Eliquis and monitor clinical course closely. Continue supportive care. MMODL / IJN: [id number] /
[2021-01-16] MEDS: ATORVASTATIN 80 MG TAB PO SCH (19:43)
[2021-01-16] MEDS: MELATONIN 3 MG TABLET PO SCH (19:44)
[2021-01-16] MEDS: SODIUM CHLORIDE 0.9% 1,000 ML IV SCH (19:44)
[2021-01-16 19:51] LABS: Glucose,Whole Blood 267 mg/dL (75-99)
[2021-01-17 06:19] LABS: Glucose,Whole Blood 173 mg/dL (75-99)
[2021-01-17] MEDS: INSULIN ASPART (NovoLOG) 100 UNIT/ML VIAL SQ SCH ×4 (06:27→20:11)
[2021-01-17] MEDS: carvediloL 6.25 MG TAB PO SCH (06:27)
[2021-01-17] MEDS: GABAPENTIN 300 MG CAP PO SCH ×3 (06:27→19:48)
[2021-01-17] MEDS: metFORMIN 500 MG TAB PO SCH (06:27)
[2021-01-17] MEDS: LEVOTHYROXINE 88 MCG TAB PO SCH (06:27)
[2021-01-17] MEDS: PANTOPRAZOLE 40 MG TABLET PO SCH (06:27)
[2021-01-17] MEDS: METOCLOPRAMIDE 5 MG TAB PO SCH ×4 (06:27→19:49)
[2021-01-17] MEDS: ALBUTEROL HFA INHALER INHALATION SCH ×3 (07:53→19:17)
[2021-01-17 08:07] LABS: C Reactive Protein 32.2 mg/L (<10.0)
[2021-01-17] MEDS: dexAMETHasone 2 MG TAB PO SCH (08:09)
[2021-01-17] MEDS: ASCORBIC ACID 500 MG TAB PO SCH (08:09)
[2021-01-17] MEDS: LOSARTAN 25 MG TAB PO SCH (08:09)
[2021-01-17] MEDS: ZINC SULFATE 220 MG CAP PO SCH (08:10)
[2021-01-17] MEDS: APIXABAN 5 MG TAB PO SCH ×2 (08:10→19:49)
[2021-01-17] MEDS: DOCUSATE 100 MG CAP PO SCH ×2 (08:10→19:49)
[2021-01-17] MEDS: CHOLECALCIFEROL 25 MCG (1000 IU) TABLET PO SCH (08:10)
[2021-01-17] MEDS: polyethylene glycoL 3350 17 GM POWD.PACK PO SCH (08:10)
[2021-01-17] MEDS: CLOPIDOGREL 75 MG TAB PO SCH (08:10)
[2021-01-17] MEDS: MULTIVITAMINS, THERA 1 EACH TAB PO SCH (08:10)
[2021-01-17] MEDS: ISOSORBIDE MONONITRATE ER 30 MG TAB.ER.24H PO SCH (08:10)
[2021-01-17] MEDS: MAGNESIUM OXIDE 400 MG TAB PO SCH (08:10)
[2021-01-17] MEDS: DOXAZOSIN 4 MG TAB PO SCH (08:10)
[2021-01-17] MEDS: TAMSULOSIN 0.4 MG CAP.ER.24H PO SCH (08:10)
[2021-01-17] MEDS: ASPIRIN 81 MG PO SCH (08:13)
[2021-01-17] MEDS: EZETIMIBE 10 MG TAB PO SCH (08:14)
--- NOTE | 2021-01-17 08:40 | XR ---
EXAMINATION TYPE: XR chest 1V portable DATE OF EXAM: 01/17/2021 COMPARISON: 1820 INDICATION: Pneumonia TECHNIQUE: Single frontal view of the chest is obtained. FINDINGS: The heart size is normal. The pulmonary vasculature is normal. Minimal infiltrate is in the periphery left lower lobe. IMPRESSION: 1. Minimal peripheral infiltrates can be compatible with atypical pneumonia.
[2021-01-17 11:50] LABS: Glucose,Whole Blood 168 mg/dL (75-99)
[2021-01-17] MEDS: REMDESIVIR 100 MG in SODIUM CHLORIDE 0.9% 250 ML IVPB SCH (12:08)
--- NOTE | 2021-01-17 12:19 | PN ---
PROGRESS NOTE This is a 70-year-old female who recently had a PFO repaired. She is greatly improved. Now she came in with COVID-19 pneumonia 2 days after leaving the hospital, most likely hospital acquired. She remains weak and fatigued. She is on 4 L oxygen and maintaining in the mid 90s. Pulse is 105-120, respiratory 24-48, blood pressure 120/67. She is 92 on 2 L. Cardiovascular S1-S2. Lungs scattered rhonchi and wheeze. Integument she looks weak, fatigued, generalized poor skin turgor, dry mucous membranes. ASSESSMENT: Acute hypoxemic respiratory distress secondary to COVID-[address] Headley is on consult. Remdesivir day 2. Continue zinc, dexamethasone, ascorbic acid and Eliquis. Monitor condition closely. Prognosis guarded. Status post PFO. Discussed the case with her . JUAN / MICKY: [id number] /
--- NOTE | 2021-01-17 13:38 | P.PN ---
Subjective Progress Note Date: 01/17/21 Principal diagnosis: CoVID 19 pneumonia 70-year-old female, who presents to the emergency room, brought in by EMS, with complaints of generalized weakness, sweats, low saturations, poor oral intake, fatigue, and shortness of breath on exertion. The patient recently had a repair of a patent foramen ovale. This was done at this hospital. The patient was in the emergency room only saw her. She was getting saline at 20 mL an hour, and also 4 L nasal cannula. She could barely open her eye she was feeling so weak and fatigue. She apparently tested negative for COVID 19 when she was hospitalized for her recent surgery. She has not been feeling well for a number of days. Probably 4 or 5 at least maybe a bit more. A chest x-ray was done and did not show any acute abnormality. CT angiogram showed no evidence of pulmonary embolism, new small bilateral pleural effusions, and patchy pulmonary infiltrates, and atelectasis, with a groundglass appearance. White count was 5.73, hemoglobin 11.6, hematocrit 36.3, and platelet count 178,000. D-dimer was 1.03, sodium 133, potassium 3.5, chlorides 100, CO2 28, anion gap 5, BUN 7, creatinine 0.5. The patient is seen today 01/16/2021 in follow-up on the selective care unit. She is currently resting fairly comfortably in bed. Awake and alert in no acute distress. Not much improved today compared to yesterday. She is still maintaining O2 saturation 90s on 2 L/m per nasal cannula. No IV fluids currently. She remains congested with cough. On Mucinex. Blood cultures reveal no growth. She is anti-coagulated with Eliquis. Remains on dexamethasone, vitamin supplements. This is day #2 of Remdesivir. Patient is seen today 01/17/2021 in follow-up on the selective care unit. She is currently sitting up at the bedside. Awake and alert in no acute distress. Maintaining O2 saturations in the 90s on 2 L/m per nasal cannula. She is anticoagulated with Eliquis. Remains on dexamethasone him a vitamin supplement. This is day #3 of Remdesivir. Chest x-ray shows minimal peripheral infiltrates. D-dimer 107. LDH 1283. C-reactive protein 32.2. Objective - Vital Signs Vital signs: Vital Signs Temp 98.5 F 01/17/21 12:00 Pulse 93 01/17/21 12:00 Resp 16 01/17/21 12:00 BP 113/64 01/17/21 12:00 Pulse Ox 93 L 01/17/21 12:00 Intake & Output 01/16/21 01/17/21 01/17/21 18:59 06:59 18:59 Intake Total 550 240 240 Output Total 1100 Balance 550 -860 240 Weight 111 kg Intake: Intake, IV Titration 250 Amount Remdesivir 100 mg In 250 Sodium Chloride 0.9% 250 ml @ 250 mls/hr IVPB Q24H [facility] Rx#:[id number] Oral 300 240 240 Output: Urine 1100 Other: Voiding Method Bedpan Bedpan Bedpan # Voids 2 1 # Bowel Movements 1 1 - Exam GENERAL EXAM: Alert, pleasant 70-year-old female patient, on 2 L nasal cannula, comfortable in no apparent distress. HEAD: Normocephalic. EYES: Normal reaction of pupils, equal size. NOSE: Clear with pink turbinates. THROAT: No erythema or exudates. NECK: No masses, no JVD. CHEST: No chest wall deformity. LUNGS: Equal air entry with few scattered rhonchi, crackles in the posterior bases CVS: S1 and S2 normal with no audible murmur, regular rhythm. ABDOMEN: No hepatosplenomegaly, normal bowel sounds, no guarding or rigidity. SPINE: No scoliosis or deformity SKIN: No rashes CENTRAL NERVOUS SYSTEM: No focal deficits, tone is normal in all 4 extremities. EXTREMITIES: There is no peripheral edema. No clubbing, no cyanosis. Peripheral pulses are intact. - Labs CBC & Chem 7: 01/15/21 04:55 01/15/21 04:55 Labs: Abnormal Lab Results - Last 24 Hours (Table) 01/16/21 01/16/21 01/17/21 Range/Units 16:57 19:50 06:17 D-Dimer (<0.60) mg/L FEU POC Glucose (mg/dL) 251 H 267 H 173 H (75-99) mg/dL Lactate Dehydrogenase (313-618) U/L C-Reactive Protein (<10.0) mg/L 01/17/21 01/17/21 01/17/21 Range/Units 06:58 06:58 11:48 D-Dimer 1.07 H (<0.60) mg/L FEU POC Glucose (mg/dL) 168 H (75-99) mg/dL Lactate Dehydrogenase 1283 H (313-618) U/L C-Reactive Protein 32.2 H (<10.0) mg/L Microbiology - Last 24 Hours (Table) 01/14/21 19:37 Blood Culture - Preliminary Blood No Growth after 48 hours 01/14/21 19:35 Blood Culture - Preliminary Blood No Growth after 48 hours Assessment and Plan Assessment: 1 Acute hypoxemic respiratory failure, secondary to COVID 19 pneumonia/pneumonitis. 2 History of diabetes mellitus. 3 History of hyperlipidemia. 4 Recent PFO repair. 5 History of gastroesophageal reflux disease. 6 History of myocardial infarction. 7 History of hypertension. 8 History of rheumatoid arthritis. 9 History of degenerative joint disease. 10 History of sleep apnea syndrome, currently on CPAP. 11 History of kidney stones. 12 History of diverticular disease. 13 History of chronic back pain. 14 Status post heart catheterization with stent placement. Plan: The patient was seen and evaluated by Dr. Ríos This is day #3 of Remdesivir Anticoagulated with Eliquis Continue dexamethasone, vitamin supplements We will continue to follow I, the cosigning physician, performed a history & physical examination of the patient. Lungs sounds scattered rhonchi, crackles in the posterior bases. Maint aining good O2 saturations in the 90s on 2 L/m per nasal cannula. I discussed the assessment and plan of care with my nurse practitioner, Viki Olivarez. I attest to the above note as dictated by her.
[2021-01-17 16:41] LABS: Glucose,Whole Blood 209 mg/dL (75-99)
[2021-01-17] MEDS: METOPROLOL TARTRATE 50 MG TAB PO SCH (19:48)
[2021-01-17] MEDS: ATORVASTATIN 80 MG TAB PO SCH (19:49)
[2021-01-17] MEDS: MELATONIN 3 MG TABLET PO SCH (19:49)
[2021-01-17] MEDS: SODIUM CHLORIDE 0.9% 1,000 ML IV SCH (19:50)
[2021-01-17 20:06] LABS: Glucose,Whole Blood 212 mg/dL (75-99)
--- NOTE | 2021-01-17 23:11 | PN ---
PROGRESS NOTE DATE OF SERVICE: 01/17/2021 REASON FOR FOLLOWUP: COVID-19 pneumonia. INTERVAL HISTORY: Patient is currently afebrile. The patient is breathing slightly comfortably. The patient denies having any chest pain. She did have some cough, not bringing up any sputum. No nausea, no vomiting. No abdominal pain or diarrhea. PHYSICAL EXAMINATION: Blood pressure is 115/68 with a pulse of 92, temperature 97.8. She is 94% on 2 L nasal cannula. General description is an elderly female lying in bed in no distress. Respiratory system: Unlabored breathing, decreased breath sounds in the base, with no wheeze. Heart S1, S2. Regular rate and rhythm. ABDOMEN: Soft, no tenderness. LAB: Inflammatory marker remains to be elevated. DIAGNOSTIC IMPRESSION/PLAN: Patient with acute COVID-19 pneumonia. Patient seemed to have shown some clinical response to Remdesivir, dexamethasone, zinc, ascorbic acid to continue along with respiratory support. Monitor clinical course closely. Continue supportive care. MMODL / IJN: [id number] /
--- NOTE | 2021-01-17 23:41 | PN ---
PROGRESS NOTE The patient has follow up with Covid pneumonia. She says she is breathing better. Sat on 2 L standing in the 90-93 percent range. She has a congested cough. She is on Mucinex. Blood cultures are negative. Still on Eliquis, dexamethasone, vitamins, she is on day two of Remdesivir. She wants something improved for her cough. Lungs are transmitted upper sounds, mild wheezes. Cardiovascular S1, S2. Psych: She appears more alert. She is going to try to get up to bed. When she got up to the chair yesterday, she had orthostatic changes, had to go back to bed and lay down otherwise she would have passed out. Her blood pressure medications from home have been held. Temperature is 98.5, pulse 93, respiratory 16-18, blood pressure 113/64, O2 93. Extremities: No cyanosis, clubbing, edema. ENDOCRINE: BMI is over 41. Psych: Fair mood and affect. White count 5.72, hemoglobin 11.6. ASSESSMENT: 1. Acute hypoxemic respiratory failure secondary to Covid 19 pneumonia. 2. Diabetes mellitus. 3. Hyperlipidemia. 4. PFO repair. 5. Gastroesophageal reflux disease. 6. Myocardial infarction. 7. Hypertension. 8. Rheumatoid arthritis. 9. Degenerative joint disease. 10.Sleep apnea. 11.Renal stones. Continue with Remdesivir. Wean off oxygen as tolerated. Probably send her home in a few days after she is done with her 5 days Remdesivir. She is doing better on her oxygen which she normally wears at home with 2 L. MMJULIANAL / WICHON: [id number] /
[2021-01-18] MEDS: guaiFENesin 600 MG TABLET.ER PO PRN ×2 (00:25→19:56)
[2021-01-18] MEDS: GABAPENTIN 300 MG CAP PO SCH ×3 (05:00→19:55)
[2021-01-18 06:26] LABS: Glucose,Whole Blood 151 mg/dL (75-99)
[2021-01-18] MEDS: LEVOTHYROXINE 88 MCG TAB PO SCH (06:27)
[2021-01-18] MEDS: metFORMIN 500 MG TAB PO SCH (06:27)
[2021-01-18] MEDS: PANTOPRAZOLE 40 MG TABLET PO SCH (06:27)
[2021-01-18] MEDS: INSULIN ASPART (NovoLOG) 100 UNIT/ML VIAL SQ SCH ×4 (06:28→20:47)
[2021-01-18 07:48] LABS: ALT 33 U/L (4-34); AST 43 U/L (14-36); African American GFR (CKD) >90 (>60 ml/min/1.73 sqM); Albumin 2.7 g/dL (3.5-5.0); Alkaline Phosphatase 62 U/L (38-126); Anion Gap 3 mmol/L; Blood Urea Nitrogen 11 mg/dL (7-17); C Reactive Protein 21.2 mg/L (<10.0); Calcium 8.3 mg/dL (8.4-10.2); Carbon Dioxide 31 mmol/L (22-30); Chloride 104 mmol/L (98-107); Glucose 132 mg/dL (74-99); LDH 1148 U/L (313-618); Non-African American GFR(CKD) >90 (>60 ml/min/1.73 sqM); Potassium 3.8 mmol/L (3.5-5.1); Sodium 138 mmol/L (137-145); Total Bilirubin 0.7 mg/dL (0.2-1.3)
[2021-01-18 07:50] LABS: Basophils % (A) 0 %; Eosinophils % (A) 0 %; HCT 35.8 % (34.0-46.0); HGB 11.9 gm/dL (11.4-16.0); Lymphocytes # (A) 0.9 k/uL (1.0-4.8); Lymphocytes % (A) 14 %; MCH 29.7 pg (25.0-35.0); MCHC 33.4 g/dL (31.0-37.0); MCV 88.9 fL (80.0-100.0); Mean Platelet Volume 8.2; Monocytes # (A) 0.3 k/uL (0-1.0); Monocytes % (A) 5 %; Neutrophils # (A) 5.5 k/uL (1.3-7.7); Neutrophils % (A) 81 %; Platelet Count 243 k/uL (150-450); RBC 4.03 m/uL (3.80-5.40); RDW 15.3 % (11.5-15.5); WBC 6.7 k/uL (3.8-10.6)
[2021-01-18] MEDS: ALBUTEROL HFA INHALER INHALATION SCH ×3 (08:23→19:33)
[2021-01-18] MEDS: ASPIRIN 81 MG PO SCH (08:41)
[2021-01-18] MEDS: ISOSORBIDE MONONITRATE ER 30 MG TAB.ER.24H PO SCH (08:41)
[2021-01-18] MEDS: ZINC SULFATE 220 MG CAP PO SCH (08:41)
[2021-01-18] MEDS: DOCUSATE 100 MG CAP PO SCH ×2 (08:41→19:55)
[2021-01-18] MEDS: MULTIVITAMINS, THERA 1 EACH TAB PO SCH (08:41)
[2021-01-18] MEDS: EZETIMIBE 10 MG TAB PO SCH (08:41)
[2021-01-18] MEDS: CHOLECALCIFEROL 25 MCG (1000 IU) TABLET PO SCH (08:41)
[2021-01-18] MEDS: METOPROLOL TARTRATE 50 MG TAB PO SCH ×2 (08:41→19:54)
[2021-01-18] MEDS: MAGNESIUM OXIDE 400 MG TAB PO SCH (08:42)
[2021-01-18] MEDS: CLOPIDOGREL 75 MG TAB PO SCH (08:42)
[2021-01-18] MEDS: ASCORBIC ACID 500 MG TAB PO SCH (08:42)
[2021-01-18] MEDS: dexAMETHasone 2 MG TAB PO SCH (08:42)
[2021-01-18] MEDS: APIXABAN 5 MG TAB PO SCH ×2 (08:42→19:54)
[2021-01-18] MEDS: polyethylene glycoL 3350 17 GM POWD.PACK PO SCH (08:52)
--- NOTE | 2021-01-18 09:23 | P.PN ---
Subjective Progress Note Date: 01/18/21 CoVID 19 pneumonia 70-year-old female, who presents to the emergency room, brought in by EMS, with complaints of generalized weakness, sweats, low saturations, poor oral intake, fatigue, and shortness of breath on exertion. The patient recently had a repair of a patent foramen ovale. This was done at this hospital. The patient was in the emergency room only saw her. She was getting saline at 20 mL an hour, and also 4 L nasal cannula. She could barely open her eye she was feeling so weak and fatigue. She apparently tested negative for COVID 19 when she was hospitalized for her recent surgery. She has not been feeling well for a number of days. Probably 4 or 5 at least maybe a bit more. A chest x-ray was done and did not show any acute abnormality. CT angiogram showed no evidence of pu lmonary embolism, new small bilateral pleural effusions, and patchy pulmonary infiltrates, and atelectasis, with a groundglass appearance. White count was 5.73, hemoglobin 11.6, hematocrit 36.3, and platelet count 178,000. D-dimer was 1.03, sodium 133, potassium 3.5, chlorides 100, CO2 28, anion gap 5, BUN 7, creatinine 0.5. The patient is seen today 01/16/2021 in follow-up on the selective care unit. She is currently resting fairly comfortably in bed. Awake and alert in no acute distress. Not much improved today compared to yesterday. She is still maintaining O2 saturation 90s on 2 L/m per nasal cannula. No IV fluids currently. She remains congested with cough. On Mucinex. Blood cultures reveal no growth. She is anti-coagulated with Eliquis. Remains on dexamethasone, vitamin supplements. This is day #2 of Remdesivir. Patient is seen today 01/17/2021 in follow-up on the selective care unit. She is currently sitting up at the bedside. Awake and alert in no acute distress. Maintaining O2 saturations in the 90s on 2 L/m per nasal cannula. She is anticoagulated with Eliquis. Remains on dexamethasone him a vitamin supplement. This is day #3 of Remdesivir. Chest x-ray shows minimal peripheral infiltrates. D-dimer 107. LDH 1283. C-reactive protein 32.2. 01/18/2021, the patient is being seen for a follow-up. The patient is being treated for Covid related pneumonia. The patient is on a combination of Decadron and the patient also is on day #4 of Remdesivir. The patient is also on various ultimately supplements. The chest x-ray was showing minimal perip heral infiltrates bilaterally. The patient is currently on 2 L of oxygen by nasal cannula. The d-dimer from yesterday was 1.07 and the patient is also on Eliquis. The patient is currently still on 2 L of oxygen by nasal cannula. She is having episodes of cough. Otherwise, her taste of taste has also been affected and the patient is trying to eat as much as she can. She is hemodynamically stable. No other new complaints otherwise for now. LDH level is 1148 and the CRP level is down to 21. White cell count is at 6.7. D-dimer is at 1.05. Objective - Vital Signs Vital signs: Vital Signs Temp 98.1 F 01/18/21 03:28 Pulse 91 01/18/21 03:28 Resp 22 01/18/21 03:28 BP 96/56 01/18/21 00:00 Pulse Ox 91 L 01/18/21 03:28 Intake & Output 01/17/21 01/18/21 01/18/21 18:59 06:59 18:59 Intake Total 1080 444 Output Total 975 1000 Balance 105 -556 Weight 110.2 kg Intake: Oral 1080 444 Output: Urine 975 1000 Other: Voiding Method Bedpan Bedpan # Voids 1 # Bowel Movements 1 - Exam GENERAL EXAM: Alert, pleasant 70-year-old female patient, on 2 L nasal cannula, comfortable in no apparent distress. HEAD: Normocephalic. EYES: Normal reaction of pupils, equal size. NOSE: Clear with pink turbinates. THROAT: No erythema or exudates. NECK: No masses, no JVD. CHEST: No chest wall deformity. LUNGS: Equal air entry with few scattered rhonchi, crackles in the posterior bases CVS: S1 and S2 normal with no audible murmur, regular rhythm. ABDOMEN: No hepatosplenomegaly, normal bowel sounds, no guarding or rigidity. SPINE: No scoliosis or deformity SKIN: No rashes CENTRAL NERVOUS SYSTEM: No focal deficits, tone is normal in all 4 extremities. EXTREMITIES: There is no peripheral edema. No clubbing, no cyanosis. Peripheral pulses are intact. - Labs CBC & Chem 7: 01/18/21 06:36 01/18/21 06:36 Labs: Abnormal Lab Results - Last 24 Hours (Table) 01/17/21 01/17/21 01/17/21 Range/Units 11:48 16:38 20:05 Lymphocytes # (1.0-4.8) k/uL D-Dimer (<0.60) mg/L FEU Carbon Dioxide (22-30) mmol/L Creatinine (0.52-1.04) mg/dL Glucose (74-99) mg/dL POC Glucose (mg/dL) 168 H 209 H 212 H (75-99) mg/dL Calcium (8.4-10.2) mg/dL AST (14-36) U/L Lactate Dehydrogenase (313-618) U/L C-Reactive Protein (<10.0) mg/L Total Protein (6.3-8.2) g/dL Albumin (3.5-5.0) g/dL 01/18/21 01/18/21 01/18/21 Range/Units 06:20 06:36 06:36 Lymphocytes # (1.0-4.8) k/uL D-Dimer 1.05 H (<0.60) mg/L FEU Carbon Dioxide 31 H (22-30) mmol/L Creatinine 0.50 L (0.52-1.04) mg/dL Glucose 132 H (74-99) mg/dL POC Glucose (mg/dL) 151 H (75-99) mg/dL Calcium 8.3 L (8.4-10.2) mg/dL AST 43 H (14-36) U/L Lactate Dehydrogenase 1148 H (313-618) U/L C-Reactive Protein 21.2 H (<10.0) mg/L Total Protein 5.0 L (6.3-8.2) g/dL Albumin 2.7 L (3.5-5.0) g/dL 01/18/21 Range/Units 06:36 Lymphocytes # 0.9 L (1.0-4.8) k/uL D-Dimer (<0.60) mg/L FEU Carbon Dioxide (22-30) mmol/L Creatinine (0.52-1.04) mg/dL Glucose (74-99) mg/dL POC Glucose (mg/dL) (75-99) mg/dL Calcium (8.4-10.2) mg/dL AST (14-36) U/L Lactate Dehydrogenase (313-618) U/L C-Reactive Protein (<10.0) mg/L Total Protein (6.3-8.2) g/dL Albumin (3.5-5.0) g/dL Microbiology - Last 24 Hours (Table) 01/14/21 19:37 Blood Culture - Preliminary Blood No Growth after 72 hours 01/14/21 19:35 Blood Culture - Preliminary Blood No Growth after 72 hours Assessment and Plan Plan: 1 Acute hypoxemic respiratory failure, secondary to COVID 19 pneumonia/pneumonitis. The patient was hypoxic on 2 L by nasal cannula. Chest x-ray showing some minimal infiltrates peripherally related to pneumonia. Currently under treatment with a combination of Decadron and Remdesivir, day #4. 2 History of diabetes mellitus. 3 History of hyperlipidemia. 4 Recent PFO repair. 5 History of gastroesophageal reflux disease. 6 History of myocardial infarction. 7 History of hypertension. 8 History of rheumatoid arthritis. 9 History of degenerative joint disease. 10 History of sleep apnea syndrome, currently on CPAP. 11 History of kidney stones. 12 History of diverticular disease. 13 History of chronic back pain. 14 Status post heart catheterization with stent placement. Plan: This is day #4 of Remdesivir Anticoagulated with Eliquis Continue dexamethasone, vitamin supplements We will continue to follow [facility] home oxygen and the patient may potentially go home within next 24-48 hours on home oxygen to complete her home recovery. Her pulse ox is 91-94% of these about 2 by nasal cannula.
[2021-01-18 11:55] LABS: Glucose,Whole Blood 163 mg/dL (75-99)
[2021-01-18] MEDS: REMDESIVIR 100 MG in SODIUM CHLORIDE 0.9% 250 ML IVPB SCH (12:17)
[2021-01-18] MEDS: ACETAMINOPHEN TAB 325 MG TAB PO PRN (13:02)
[2021-01-18 16:26] LABS: Glucose,Whole Blood 240 mg/dL (75-99)
[2021-01-18] MEDS: MELATONIN 3 MG TABLET PO SCH (19:54)
[2021-01-18] MEDS: ATORVASTATIN 80 MG TAB PO SCH (19:54)
[2021-01-18] MEDS: SODIUM CHLORIDE 0.9% 1,000 ML IV SCH (19:55)
[2021-01-18 20:15] LABS: Glucose,Whole Blood 236 mg/dL (75-99)
--- NOTE | 2021-01-19 00:19 | PN ---
PROGRESS NOTE DATE OF SERVICE: 01/18/2021 REASON FOR FOLLOWUP: COVID-19 infection. INTERVAL HISTORY: The patient is currently afebrile. The patient is breathing comfortably. The patient denies having any chest pain or shortness of breath or cough. No abdominal pain or diarrhea. PHYSICAL EXAMINATION: Blood pressure 125/73, pulse of 85, temperature 97.8. She is 96% on 2 L nasal cannula. General description is an elderly female lying in bed in no distress. RESPIRATORY SYSTEM: Unlabored breathing with decreased intensity of breath sounds. No wheeze. HEART: S1, S2. Regular rate and rhythm. ABDOMEN: Soft. No tenderness. LABS: Hemoglobin 11.9, white count 6.7, BUN of 11, creatinine 0.50. DIAGNOSTIC IMPRESSION AND PLAN: Patient with acute COVID-19 pneumonia. Patient is currently on remdesivir, Eliquis, zinc, ascorbic acid along with dexamethasone; to continue and monitor clinical course closely. Continue with supportive care. MMODL / IJN: [id number] /
--- NOTE | 2021-01-19 01:29 | PN ---
PROGRESS NOTE She is admitted with COVID pneumonia. She appears to be better. We stopped four of her blood pressure medications since yesterday. She is up, able to get to the chair without hypoxemic or syncope today. dexamethasone, vitamin D, Eliquis. Chest x- ray shows minimal infiltrates. D-dimer is 107. LDH 1283, CRP is 32.2. Temp 98.1, pulse 91, respiratory 18-22, blood pressure 120s over 60s. Cardiovascular S1-S2. Lungs show scattered rhonchi and wheeze. Hematology: Negative Homans. Psych: Fair mood and affect. Neurologic: Alert and oriented times three. ASSESSMENT: 1. Acute hypoxemic respiratory failure secondary to Covid 19 pneumonia and pneumonitis on 2 L oxygen. 2. Diabetes mellitus. 3. Hypertension. 4. Dyslipidemia. 5. PFO repair. 6. Gastroesophageal reflux disease. 7. Coronary artery disease. 8. Rheumatoid arthritis. 9. Degenerative joint disease. 10.Sleep apnea. PROGNOSIS: Guarded. Continue to wean off oxygen. Possibly discharge home soon. MMODL / IJN: [id number] /
[2021-01-19 06:19] LABS: Glucose,Whole Blood 136 mg/dL (75-99)
[2021-01-19] MEDS: PANTOPRAZOLE 40 MG TABLET PO SCH (06:31)
[2021-01-19] MEDS: LEVOTHYROXINE 88 MCG TAB PO SCH (06:31)
[2021-01-19] MEDS: GABAPENTIN 300 MG CAP PO SCH ×3 (06:31→20:48)
[2021-01-19] MEDS: metFORMIN 500 MG TAB PO SCH (06:32)
[2021-01-19] MEDS: INSULIN ASPART (NovoLOG) 100 UNIT/ML VIAL SQ SCH ×5 (06:32→20:46)
[2021-01-19] MEDS: ALBUTEROL HFA INHALER INHALATION SCH ×3 (08:01→18:53)
[2021-01-19 08:03] LABS: C Reactive Protein 14.7 mg/L (<10.0)
[2021-01-19] MEDS: APIXABAN 5 MG TAB PO SCH ×2 (09:12→20:48)
[2021-01-19] MEDS: ZINC SULFATE 220 MG CAP PO SCH (09:12)
[2021-01-19] MEDS: ASCORBIC ACID 500 MG TAB PO SCH (09:12)
[2021-01-19] MEDS: polyethylene glycoL 3350 17 GM POWD.PACK PO SCH (09:12)
[2021-01-19] MEDS: METOPROLOL TARTRATE 50 MG TAB PO SCH ×2 (09:13→20:48)
[2021-01-19] MEDS: MAGNESIUM OXIDE 400 MG TAB PO SCH (09:13)
[2021-01-19] MEDS: DOCUSATE 100 MG CAP PO SCH ×2 (09:13→20:48)
[2021-01-19] MEDS: ISOSORBIDE MONONITRATE ER 30 MG TAB.ER.24H PO SCH (09:13)
[2021-01-19] MEDS: CLOPIDOGREL 75 MG TAB PO SCH (09:13)
[2021-01-19] MEDS: MULTIVITAMINS, THERA 1 EACH TAB PO SCH (09:13)
[2021-01-19] MEDS: CHOLECALCIFEROL 25 MCG (1000 IU) TABLET PO SCH (09:13)
[2021-01-19] MEDS: dexAMETHasone 2 MG TAB PO SCH (09:13)
[2021-01-19] MEDS: ASPIRIN 81 MG PO SCH (09:13)
--- NOTE | 2021-01-19 10:23 | P.PN ---
Subjective Progress Note Date: 01/19/21 70-year-old female, who presents to the emergency room, brought in by EMS, with complaints of generalized weakness, sweats, low saturations, poor oral intake, fatigue, and shortness of breath on exertion. The patient recently had a repair of a patent foramen ovale. This was done at this hospital. The patient was in the emergency room only saw her. She was getting saline at 20 mL an hour, and also 4 L nasal cannula. She could barely open her eye she was feeling so weak and fatigue. She apparently tested negative for COVID 19 when she was hospitalized for her recent surgery. She has not been feeling well for a number of days. Probably 4 or 5 at least maybe a bit more. A chest x-ray was done and did not show any acute abnormality. CT angiogram showed no evidence of pulmonary embolism, new small bilateral pleural effusions, and patchy pulmonary infiltrates, and atelectasis, with a groundglass appearance. White count was 5.73, hemoglobin 11.6, hematocrit 36.3, and platelet count 178,000. D-dimer was 1.03, sodium 133, potassium 3.5, chlorides 100, CO2 28, anion gap 5, BUN 7, creatinine 0.5. The patient is seen today 01/16/2021 in follow-up on the selective care unit. She is currently resting fairly comfortably in bed. Awake and alert in no acute distress. Not much improved today compared to yesterday. She is still maintaining O2 saturation 90s on 2 L/m per nasal cannula. No IV fluids currently. She remains congested with cough. On Mucinex. Blood cultures reveal no growth. She is anti-coagulated with Eliquis. Remains on dexamethasone, vitamin supplements. This is day #2 of Remdesivir. Patient is seen today 01/17/2021 in follow-up on the selective care unit. She is currently sitting up at the bedside. Awake and alert in no acute distress. Maintaining O2 saturations in the 90s on 2 L/m per nasal cannula. She is anticoagulated with Eliquis. Remains on dexamethasone him a vitamin supplement. This is day #3 of Remdesivir. Chest x-ray shows minimal peripheral infiltrates. D-dimer 107. LDH 1283. C-reactive protein 32.2. 01/18/2021, the patient is being seen for a follow-up. The patient is being treated for Covid related pneumonia. The patient is on a combination of Decadron and the patient also is on day #4 of Remdesivir. The patient is also on various ultimately supplements. The chest x-ray was showing minimal peripheral infiltrates bilaterally. The patient is currently on 2 L of oxygen by nasal cannula. The d-dimer from yesterday was 1.07 and the patient is also on Eliquis. The patient is currently still on 2 L of oxygen by nasal cannula. She is having episodes of cough. Otherwise, her taste of taste has also been affected and the patient is trying to eat as much as she can. She is hemodynamically stable. No other new complaints otherwise for now. LDH level is 1148 and the CRP level is down to 21. White cell count is at 6.7. D-dimer is at 1.05. 01/18/2021 the patient is completing her treatment. She is on day 5 of REM and she is also on Decadron. She is on 2 L of oxygen by nasal cannula. Blood work from today shows a d-dimer of 2.1. LDH is still elevated at 1153 with a CRP of 14.7. She is still cough and and she has a congested cough. Not producing any sputum. She remains on Eliquis 5 mg by mouth twice a day. No other significant events overnight. No syncope. No nausea. No vomiting. No diarrhea. No abdominal pain. Remains on Synthroid. Remains on her home medication. Cultures of been all negative. Objective - Vital Signs Vital signs: Vital Signs Temp 97.9 F 01/19/21 04:00 Pulse 92 01/19/21 08:00 Resp 16 01/19/21 08:00 BP 135/77 01/19/21 08:00 Pulse Ox 93 L 01/19/21 08:00 Intake & Output 01/18/21 01/19/21 01/19/21 18:59 06:59 18:59 Intake Total 712 660 Output Total 2250 Balance 712 -1590 Weight 110.5 kg Intake: Oral 712 660 Output: Urine 2250 Other: Voiding Method Bedpan # Voids 1 1 # Bowel Movements 1 1 - Exam GENERAL EXAM: Alert, pleasant 70-year-old female patient, on 2 L nasal cannula, comfortable in no apparent distress. HEAD: Normocephalic. EYES: Normal reaction of pupils, equal size. NOSE: Clear with pink turbinates. THROAT: No erythema or exudates. NECK: No masses, no JVD. CHEST: No chest wall deformity. LUNGS: Equal air entry with few scattered rhonchi, crackles in the posterior bases CVS: S1 and S2 normal with no audible murmur, regular rhythm. ABDOMEN: No hepatosplenomegaly, normal bowel sounds, no guarding or rigidity. SPINE: No scoliosis or deformity SKIN: No rashes CENTRAL NERVOUS SYSTEM: No focal deficits, tone is normal in all 4 extremities. EXTREMITIES: There is no peripheral edema. No clubbing, no cyanosis. Peripheral pulses are intact. - Labs CBC & Chem 7: 01/18/21 06:36 01/18/21 06:36 Labs: Abnormal Lab Results - Last 24 Hours (Table) 01/18/21 01/18/21 01/18/21 Range/Units 11:53 16:25 20:14 D-Dimer (<0.60) mg/L FEU POC Glucose (mg/dL) 163 H 240 H 236 H (75-99) mg/dL Lactate Dehydrogenase (313-618) U/L C-Reactive Protein (<10.0) mg/L 01/19/21 01/19/21 01/19/21 Range/Units 06:17 06:19 06:19 D-Dimer 2.10 H (<0.60) mg/L FEU POC Glucose (mg/dL) 136 H (75-99) mg/dL Lactate Dehydrogenase 1153 H (313-618) U/L C-Reactive Protein 14.7 H (<10.0) mg/L Microbiology - Last 24 Hours (Table) 01/14/21 19:37 Blood Culture - Preliminary Blood No Growth after 96 hours 01/14/21 19:35 Blood Culture - Preliminary Blood No Growth after 96 hours Assessment and Plan Plan: 1 Acute hypoxemic respiratory failure, secondary to COVID 19 pneumonia/pneumonitis. The patient was hypoxic on 2 L by nasal cannula. Chest x-ray showing some minimal infiltrates peripherally related to pneumonia. Currently under treatment with a combination of Decadron and Remdesivir, day #5, inflammatory markers show elevation in the LDH which is comparable to yesterday and the CRP still elevated. 2 History of diabetes mellitus. 3 History of hyperlipidemia. 4 Recent PFO repair. 5 History of gastroesophageal reflux disease. 6 History of myocardial infarction. 7 History of hypertension. 8 History of rheumatoid arthritis. 9 History of degenerative joint disease. 10 History of sleep apnea syndrome, currently on CPAP. 11 History of kidney stones. 12 History of diverticular disease. 13 History of chronic back pain. 14 Status post heart catheterization with stent placement. 15 paroxysmal atrial fibrillation , on Eliquis Plan: This is day #5 of Remdesivir Anticoagulated with Eliquis Continue dexamethasone, vitamin supplements We'll do a home oxygen evaluation and see if the patient would benefit from home O2 especially if she shows any signs of the saturation We will continue to follow Tentative discharge in a.m.
[2021-01-19 11:35] VITALS: BMI 43.1
[2021-01-19 11:43] LABS: Glucose,Whole Blood 129 mg/dL (75-99)
[2021-01-19] MEDS: EZETIMIBE 10 MG TAB PO SCH (12:33)
[2021-01-19] MEDS: REMDESIVIR 100 MG in SODIUM CHLORIDE 0.9% 250 ML IVPB SCH (12:33)
[2021-01-19 16:41] LABS: Glucose,Whole Blood 233 mg/dL (75-99)
[2021-01-19 19:49] LABS: Glucose,Whole Blood 243 mg/dL (75-99)
[2021-01-19] MEDS: ACETAMINOPHEN TAB 325 MG TAB PO PRN (20:47)
[2021-01-19] MEDS: guaiFENesin 600 MG TABLET.ER PO PRN (20:48)
[2021-01-19] MEDS: MELATONIN 3 MG TABLET PO SCH (20:48)
[2021-01-19] MEDS: ATORVASTATIN 80 MG TAB PO SCH (20:48)
[2021-01-19] MEDS: SODIUM CHLORIDE 0.9% 1,000 ML IV SCH (20:56)
--- NOTE | 2021-01-19 23:30 | PN ---
PROGRESS NOTE DATE OF SERVICE: 01/19/2021 REASON FOR FOLLOWUP: COVID-19 pneumonia. INTERVAL HISTORY: The patient is currently afebrile. The patient is breathing comfortably on room air today. The patient denies having any chest pain or shortness of breath. She continues to have a cough, not bringing up any sputum. No vomiting. No abdominal pain or diarrhea. PHYSICAL EXAMINATION: Blood pressure 127/93 with a pulse of 95, temperature 97.7. She is 94% on 2 L nasal cannula. General description is an elderly female up in the chair in no distress. RESPIRATORY SYSTEM: Unlabored breathing with decreased intensity of breath sounds. No wheeze. HEART: S1, S2. Regular rate and rhythm. ABDOMEN: Soft. No tenderness. LABS: D-dimer is 2.10. LDH elevated at 1153. CRP is 14.7. DIAGNOSTIC IMPRESSION AND PLAN: Patient with acute COVID-19 infection in this patient who completed her remdesivir today today. She is currently covered with along with Eliquis, ascorbic acid, zinc and respiratory support. Monitor clinical course closely. MMODL / IJN: [id number] /
[2021-01-20 06:18] LABS: Glucose,Whole Blood 130 mg/dL (75-99)
[2021-01-20] MEDS: GABAPENTIN 300 MG CAP PO SCH ×2 (06:20→13:37)
[2021-01-20] MEDS: metFORMIN 500 MG TAB PO SCH (06:21)
[2021-01-20] MEDS: LEVOTHYROXINE 88 MCG TAB PO SCH (06:21)
[2021-01-20] MEDS: PANTOPRAZOLE 40 MG TABLET PO SCH (06:21)
[2021-01-20] MEDS: INSULIN ASPART (NovoLOG) 100 UNIT/ML VIAL SQ SCH ×2 (06:23→12:14)
[2021-01-20 08:37] VITALS: TEMP 97.8
[2021-01-20] MEDS: ASCORBIC ACID 500 MG TAB PO SCH (08:39)
[2021-01-20] MEDS: ISOSORBIDE MONONITRATE ER 30 MG TAB.ER.24H PO SCH (08:39)
[2021-01-20] MEDS: APIXABAN 5 MG TAB PO SCH (08:39)
[2021-01-20] MEDS: dexAMETHasone 2 MG TAB PO SCH (08:39)
[2021-01-20] MEDS: MULTIVITAMINS, THERA 1 EACH TAB PO SCH (08:39)
[2021-01-20] MEDS: ASPIRIN 81 MG PO SCH (08:39)
[2021-01-20] MEDS: CHOLECALCIFEROL 25 MCG (1000 IU) TABLET PO SCH (08:39)
[2021-01-20] MEDS: DOCUSATE 100 MG CAP PO SCH (08:40)
[2021-01-20] MEDS: ZINC SULFATE 220 MG CAP PO SCH (08:40)
[2021-01-20] MEDS: METOPROLOL TARTRATE 50 MG TAB PO SCH (08:40)
[2021-01-20] MEDS: CLOPIDOGREL 75 MG TAB PO SCH (08:40)
[2021-01-20] MEDS: polyethylene glycoL 3350 17 GM POWD.PACK PO SCH (08:40)
[2021-01-20] MEDS: MAGNESIUM OXIDE 400 MG TAB PO SCH (08:42)
[2021-01-20] MEDS: EZETIMIBE 10 MG TAB PO SCH (08:42)
[2021-01-20] MEDS: ACETAMINOPHEN TAB 325 MG TAB PO PRN (08:57)
[2021-01-20] MEDS: guaiFENesin 600 MG TABLET.ER PO PRN (08:57)
[2021-01-20 09:10] LABS: C Reactive Protein 10.3 mg/L (<10.0)
[2021-01-20] MEDS: ALBUTEROL HFA INHALER INHALATION SCH ×2 (09:44→12:11)
--- NOTE | 2021-01-20 09:49 | P.PN ---
Subjective Progress Note Date: 01/20/21 70-year-old female, who presents to the emergency room, brought in by EMS, with complaints of generalized weakness, sweats, low saturations, poor oral intake, fatigue, and shortness of breath on exertion. The patient recently had a repair of a patent foramen ovale. This was done at this hospital. The patient was in the emergency room only saw her. She was getting saline at 20 mL an hour, and also 4 L nasal cannula. She could barely open her eye she was feeling so weak and fatigue. She apparently tested negative for COVID 19 when she was hospitalized for her recent surgery. She has not been feeling well for a number of days. Probably 4 or 5 at least maybe a bit more. A chest x-ray was done and did not show any acute abnormality. CT angiogram showed no evidence of pulmonary embolism, new small bilateral pleural effusions, and patchy pulmonary infiltrates, and atelectasis, with a groundglass appearance. White count was 5.73, hemoglobin 11.6, hematocrit 36.3, and platelet count 178,000. D-dimer was 1.03, sodium 133, potassium 3.5, chlorides 100, CO2 28, anion gap 5, BUN 7, creatinine 0.5. The patient is seen today 01/16/2021 in follow-up on the selective care unit. She is currently resting fairly comfortably in bed. Awake and alert in no acute distress. Not much improved today compared to yesterday. She is still maintaining O2 saturation 90s on 2 L/m per nasal cannula. No IV fluids currently. She remains congested with cough. On Mucinex. Blood cultures reveal no growth. She is anti-coagulated with Eliquis. Remains on dexamethasone, vitamin supplements. This is day #2 of Remdesivir. Patient is seen today 01/17/2021 in follow-up on the selective care unit. She is currently sitting up at the bedside. Awake and alert in no acute distress. Maintaining O2 saturations in the 90s on 2 L/m per nasal cannula. She is anticoagulated with Eliquis. Remains on dexamethasone him a vitamin supplement. This is day #3 of Remdesivir. Chest x-ray shows minimal peripheral infiltrates. D-dimer 107. LDH 1283. C-reactive protein 32.2. 01/18/2021, the patient is being seen for a follow-up. The patient is being treated for Covid related pneumonia. The patient is on a combination of Decadron and the patient also is on day #4 of Remdesivir. The patient is also on various ultimately supplements. The chest x-ray was showing minimal peripheral infiltrates bilaterally. The patient is currently on 2 L of oxygen by nasal cannula. The d-dimer from yesterday was 1.07 and the patient is also on Eliquis. The patient is currently still on 2 L of oxygen by nasal cannula. She is having episodes of cough. Otherwise, her taste of taste has also been affected and the patient is trying to eat as much as she can. She is hemodynamically stable. No other new complaints otherwise for now. LDH level is 1148 and the CRP level is down to 21. White cell count is at 6.7. D-dimer is at 1.05. 01/19/2021 the patient is completing her treatment. She is on day 5 of REM and she is also on Decadron. She is on 2 L of oxygen by nasal cannula. Blood work from today shows a d-dimer of 2.1. LDH is still elevated at 1153 with a CRP of 14.7. She is still cough and and she has a congested cough. Not producing any sputum. She remains on Eliquis 5 mg by mouth twice a day. No other significant events overnight. No syncope. No nausea. No vomiting. No diarrhea. No abdominal pain. Remains on Synthroid. Remains on her home medication. Cultures of been all negative. 01/20/2021, the patient continues to have cough. She completed treatment with REM and she is also on Decadron. She remains on 2 L of oxygen by nasal cannula. On room air oxygen, she is still desaturating. Her pulse ox on 2 L around 93%. Her cough is congested. No fever. D-dimer is at 1.25, LDH is at 1175 and the CRP level is at 10.3. The patient has no other new complaints. She is on long- term anticoagulation with Eliquis 5 mg by mouth twice a day. No chest pain. No pleurisy. No hemoptysis. No altered mentation. Rest of the medication at the same and the patient is on guaifenesin 600 mg twice a day for cough. IV fluids are at 20 mL an hour. Cultures are all negative. Objective - Vital Signs Vital signs: Vital Signs Temp 97.8 F 01/20/21 08:33 Pulse 95 01/20/21 08:33 Resp 15 01/20/21 08:33 BP 126/80 01/20/21 08:33 Pulse Ox 93 L 01/20/21 08:33 Intake & Output 01/19/21 01/20/21 01/20/21 18:59 06:59 18:59 Intake Total 490 200 200 Output Total 1375 Balance 490 -1175 200 Weight 110.5 kg 109.5 kg Intake: Intake, IV Titration 250 Amount Remdesivir 100 mg In 250 Sodium Chloride 0.9% 250 ml @ 250 mls/hr IVPB Q24H ON LICENSE OF [facility] Rx#:[id number] Oral 240 200 200 Output: Urine 1375 Other: Voiding Method Bedpan Toilet # Voids 1 2 - Exam GENERAL EXAM: Alert, pleasant 70-year-old female patient, on 2 L nasal cannula, comfortable in no apparent distress. HEAD: Normocephalic. EYES: Normal reaction of pupils, equal size. NOSE: Clear with pink turbinates. THROAT: No erythema or exudates. NECK: No masses, no JVD. CHEST: No chest wall deformity. LUNGS: Equal air entry with few scattered rhonchi, crackles in the posterior bases CVS: S1 and S2 normal with no audible murmur, regular rhythm. ABDOMEN: No hepatosplenomegaly, normal bowel sounds, no guarding or rigidity. SPINE: No scoliosis or deformity SKIN: No rashes CENTRAL NERVOUS SYSTEM: No focal deficits, tone is normal in all 4 extremities. EXTREMITIES: There is no peripheral edema. No clubbing, no cyanosis. Peripheral pulses are intact. - Labs CBC & Chem 7: 01/18/21 06:36 01/18/21 06:36 Labs: Abnormal Lab Results - Last 24 Hours (Table) 01/19/21 01/19/21 01/19/21 Range/Units 11:42 16:40 19:47 D-Dimer (<0.60) mg/L FEU POC Glucose (mg/dL) 129 H 233 H 243 H (75-99) mg/dL Lactate Dehydrogenase (313-618) U/L C-Reactive Protein (<10.0) mg/L 01/20/21 01/20/21 01/20/21 Range/Units 06:16 07:48 07:48 D-Dimer 1.28 H (<0.60) mg/L FEU POC Glucose (mg/dL) 130 H (75-99) mg/dL Lactate Dehydrogenase 1175 H (313-618) U/L C-Reactive Protein 10.3 H (<10.0) mg/L Microbiology - Last 24 Hours (Table) 01/14/21 19:37 Blood Culture - Preliminary Blood No Growth after 120 hours 01/14/21 19:35 Blood Culture - Preliminary Blood No Growth after 120 hours Assessment and Plan Plan: 1 Acute hypoxemic respiratory failure, secondary to COVID 19 pneumonia/pneumonitis. The patient was hypoxic on 2 L by nasal cannula. Chest x-ray showing some minimal infiltrates peripherally related to pneumonia. Currently under treatment with a combination of Decadron and Remdesivir, day #5 and the patient completed the treatment, inflammatory markers show elevation in the LDH which is comparable to yesterday and the CRP is slightly elevated at comparable and the chest x-ray is showing some stable bilateral pulmonary infiltrates, unchanged. Her main complaint remains cough and she seems to be still requiring oxygen 2 L. She has some skeletal pain across the left shoulder probably related to her cough. She is on Mucinex for now. 2 History of diabetes mellitus. 3 History of hyperlipidemia. 4 Recent PFO repair. 5 History of gastroesophageal reflux disease. 6 History of myocardial infarction. 7 History of hypertension. 8 History of rheumatoid arthritis. 9 History of degenerative joint disease. 10 History of sleep apnea syndrome, currently on CPAP. 11 History of kidney stones. 12 History of diverticular disease. 13 History of chronic back pain. 14 Status post heart catheterization with stent placement. 15 paroxysmal atrial fibrillation , on Eliquis Plan: The patient is on Decadron and she completed treatment with Remdesivir Anticoagulated with Eliquis Continue dexamethasone, vitamin supplements We'll do a home oxygen evaluation and see if the patient would benefit from home O2 especially if she shows any signs of the saturation We will continue to follow Tentative discharge with home oxygen if cleared by medicine.
--- NOTE | 2021-01-20 11:45 | XR ---
EXAMINATION TYPE: XR chest 1V portable DATE OF EXAM: 01/20/2021 COMPARISON: 01/17/2021 INDICATION: Cough TECHNIQUE: Single frontal view of the chest is obtained. FINDINGS: The heart size is normal. The pulmonary vasculature is normal. Mild subsegmental filtrates are present within the periphery of the lungs. No focal consolidations ar e evident. IMPRESSION: 1. Scattered peripheral infiltrates are nonspecific but can be compatible with atypical pneumonia in the proper clinical setting.
[2021-01-20 11:58] LABS: Glucose,Whole Blood 148 mg/dL (75-99)
[2021-01-20 12:14] VITALS: RESP 16
--- NOTE | 2021-01-20 15:14 | PN ---
PROGRESS NOTE DATE OF SERVICE: 01/19/2021 A 70-year-old white female. She is sitting up in a chair on examination. Her oxygen level is 92 on room air to 91. CARDIOVASCULAR: S1, S2. LUNGS: Transmitted upper airway sounds. HEMATOLOGY: Negative Homans. PSYCH: Fair mood and affect. Giving appropriate answers. ASSESSMENT: 1. COVID-19. 2. Status post foramen ovale replacement. 3. Hypoxemia, still has high inflammatory markers, CRP, LDH, and D-dimer. Sugars are mid 100s to 200s. Orthostatic changes resolved after stopping some medications. Blood pressure has been running good 120s to 130s systolic. Whether she needs oxygen at home or not will have to test her and ambulate her. Please see further orders. Prognosis guarded due to COVID. MMODL / IJN: [id number] /
--- NOTE | 2021-01-20 15:33 | PN ---
PROGRESS NOTE DATE OF SERVICE: 01/20/2021 REASON FOR FOLLOWUP: Acute COVID-19 pneumonia. INTERVAL HISTORY: The patient is currently afebrile. The patient is breathing more comfortably. The patient denies having any chest pain or shortness of breath. Occasional cough. No abdominal pain or diarrhea. PHYSICAL EXAMINATION: Blood pressure 120/69 with a pulse of 95. Temperature is 97.8. She is 93% on room air. General description is an elderly female up in the bed in no distress. RESPIRATORY SYSTEM: Unlabored breathing with decreased intensity of breath sounds. No wheeze. HEART: S1, S2. Regular rate and rhythm. ABDOMEN: Soft. No tenderness. LABS: Chest x-ray: scattered infiltrate. No worsening. LDH is elevated. CRP 10.3. DIAGNOSTIC IMPRESSION AND PLAN: Patient with acute COVID-19 infection. Patient has completed her remdesivir therapy, currently on dexamethasone, Eliquis, zinc and ascorbic acid along with respiratory support. Monitor clinical course closely. MMODL / IJN: [id number] /
[2021-01-20 16:44] LABS: Glucose,Whole Blood 227 mg/dL (75-99)
[2021-01-20 17:08] VITALS: BP 165/88; PULSE 98
== END 2021-01-20 17:33 | disposition home or self-care (01) | DRG 177 ==
LOC: EC 18:52 → 4SSUR 20:57 → 3SCARD 01-15 15:11
PROVIDERS: ADMIT Family Medicine; ATTEND Family Medicine
PROC: XW033E5 Introduction of Remdesivir Anti-infective into Peripheral Vein, Percutaneous Approach, New Technology Group 5 (ICD-10-PCS; principal; 2021-01-15)
DX: U07.1 COVID-19 (principal); J12.82 Pneumonia due to coronavirus disease 2019; J96.01 Acute respiratory failure with hypoxia; M06.9 Rheumatoid arthritis, unspecified; E11.9 Type 2 diabetes mellitus without complications; D72.810 Lymphocytopenia; G47.33 Obstructive sleep apnea (adult) (pediatric); E78.5 Hyperlipidemia, unspecified; I48.0 Paroxysmal atrial fibrillation; K21.9 Gastro-esophageal reflux disease without esophagitis; I25.10 Atherosclerotic heart disease of native coronary artery without angina pectoris; I10 Essential (primary) hypertension; I25.2 Old myocardial infarction; G89.29 Other chronic pain; M54.9 Dorsalgia, unspecified; K57.90 Diverticulosis of intestine, part unspecified, without perforation or abscess without bleeding; M19.90 Unspecified osteoarthritis, unspecified site; Z79.82 Long term (current) use of aspirin; Z79.02 Long term (current) use of antithrombotics/antiplatelets; Z79.890 Hormone replacement therapy; Z79.84 Long term (current) use of oral hypoglycemic drugs; Z79.899 Other long term (current) drug therapy; Z87.891 Personal history of nicotine dependence; Z87.442 Personal history of urinary calculi; Z95.5 Presence of coronary angioplasty implant and graft; Z87.74 Personal history of (corrected) congenital malformations of heart and circulatory system; Z90.49 Acquired absence of other specified parts of digestive tract; Z90.710 Acquired absence of both cervix and uterus; Z87.42 Personal history of other diseases of the female genital tract; Z87.19 Personal history of other diseases of the digestive system; Z86.73 Personal history of transient ischemic attack (TIA), and cerebral infarction without residual deficits; Z98.890 Other specified postprocedural states; Z80.7 Family history of other malignant neoplasms of lymphoid, hematopoietic and related tissues; Z80.0 Family history of malignant neoplasm of digestive organs; Z82.49 Family history of ischemic heart disease and other diseases of the circulatory system
CPT/HCPCS: 36415; 71045; 71046; 71275; 80053; 81001; 82550; 83605; 83615; 83690; 83735; 83880; 84484; 85025; 85379; 86140; 87040; 87635; 93005; 93306; 94640; 94760; 99285

== ENCOUNTER → 2022-04-29 | Outpatient (CLI) | payer MEDICARE ==
--- NOTE | 2022-05-03 08:03 | MM ---
Reason for Exam: Screening (asymptomatic). Last mammogram was performed 5 year(s) and 5 month(s) ago. Patient History: Menarche at age 13. First Full-Term at age 20. Left ovary removed at age 37. Right ovary removed at age 37. Hysterectomy at age 37. Postmenopausal. Other cancer. Risk Values: Miley 5 year model risk: 1.4%. NCI Lifetime model risk: 3.6%. Prior Study Comparison: 12/13/2016 Bilateral Screening Mammogram, [facility]. Tissue Density: The breast tissue is heterogeneously dense. This may lower the sensitivity of mammography. Findings: Analyzed By CAD. There is no suspicious group of microcalcifications or new suspicious mass in either breast. There are stable benign calcifications noted. Overall Assessment: Benign, BI-RAD 2 Management: Screening Mammogram of both breasts in 1 year. A clinical breast exam by your physician is recommended on an annual basis and results should be correlated with mammographic findings. Electronically signed and approved by: Boris Lr M.D. Radiologis
== END | disposition home or self-care (01) ==
LOC: RADMAMWWP 15:47
PROVIDERS: ATTEND Family Medicine
DX: Z12.31 Encounter for screening mammogram for malignant neoplasm of breast (principal); Z78.0 Asymptomatic menopausal state
CPT/HCPCS: 77063; 77067

== ENCOUNTER → 2023-05-09 | Outpatient (CLI) | payer MEDICARE ==
--- NOTE | 2023-05-10 14:41 | MM ---
Reason for Exam: Screening (asymptomatic). Last screening mammogram was performed 12 month(s) ago. Patient History: Menarche at age 13. First Full-Term at age 20. Left ovary removed at age 37. Right ovary removed at age 37. Hysterectomy at age 37. Postmenopausal. Risk Values: Miley 5 year model risk: 1.4%. NCI Lifetime model risk: 3.3%. Prior Study Comparison: 12/13/2016 Bilateral Screening Mammogram, [facility]. 04/29/2022 Bilateral MG 3D screening mammo w/cad, [facility]. Tissue Density: The breast tissue is heterogeneously dense. This may lower the sensitivity of mammography. Findings: Analyzed By CAD. Pattern appears symmetrical and stable. There are scattered benign-appearing calcifications present. No significant interval changes are evident. No suspicious groups of microcalcifications, spiculated or lobular masses, architectural distortion or other secondary signs of malignancy are mammographically apparent. Overall Assessment: Benign, BI-RAD 2 Management: Screening Mammogram of both breasts in 1 year. A negative mammogram report should not preclude additional follow up of suspicious palpable abnormalities. Patient should continue monthly self breast exam. A clinical breast exam by your physician is recommended on an annual basis and results should be correlated with mammographic findings. Electronically signed and approved by: Phu Rapp D.O. Radiologis
== END | disposition home or self-care (01) ==
LOC: RADMAMWWP 16:28
PROVIDERS: ATTEND Family Medicine
DX: Z12.31 Encounter for screening mammogram for malignant neoplasm of breast (principal); Z78.0 Asymptomatic menopausal state
CPT/HCPCS: 77063; 77067

== ENCOUNTER 2023-07-16 09:30 | Observation (INO) | payer MEDICARE ==
[2023-07-16 10:00] LABS: Basophils % (A) 1 %; Eosinophils # (A) 0.1 k/uL (0-0.7); Eosinophils % (A) 1 %; HCT 38.7 % (34.0-46.0); HGB 12.8 gm/dL (11.4-16.0); Lymphocytes # (A) 1.4 k/uL (1.0-4.8); Lymphocytes % (A) 19 %; MCH 29.1 pg (25.0-35.0); MCHC 33.2 g/dL (31.0-37.0); MCV 87.7 fL (80.0-100.0); Mean Platelet Volume 10.2; Monocytes # (A) 0.3 k/uL (0-1.0); Monocytes % (A) 5 %; Neutrophils # (A) 5.3 k/uL (1.3-7.7); Neutrophils % (A) 73 %; Platelet Count 228 k/uL (150-450); RBC 4.42 m/uL (3.80-5.40); RDW 14.3 % (11.5-15.5); WBC 7.2 k/uL (3.8-10.6)
--- NOTE | 2023-07-16 10:09 | XR ---
EXAMINATION TYPE: XR chest 2V DATE OF EXAM: 07/16/2023 COMPARISON: 01/20/2021 HISTORY: Shortness of breath TECHNIQUE: Frontal and lateral views of the chest are obtained. FINDINGS: Scattered senescent parenchymal changes noted. Hyperinflation compatible with COPD. No evidence for infiltrate. No evidence for atelectasis. Heart size is stable. Mediastinal structures are stable and grossly unremarkable. No evidence for hilar prominence. Degenerative changes dorsal spine. IMPRESSION: 1. No evidence for acute pulmonary disease.
[2023-07-16 10:13] LABS: Prothrombin Time 10.5 sec (9.0-12.0)
[2023-07-16 10:25] LABS: ALT 23 U/L (4-34); AST 25 U/L (14-36); African American GFR (CKD) >90 (>60 ml/min/1.73 sqM); Alkaline Phosphatase 134 U/L (38-126); Anion Gap 8 mmol/L; Blood Urea Nitrogen 13 mg/dL (7-17); Calcium 8.8 mg/dL (8.4-10.2); Carbon Dioxide 27 mmol/L (22-30); Chloride 107 mmol/L (98-107); Glucose 163 mg/dL (74-99); Magnesium 1.8 mg/dL (1.6-2.3); Non-African American GFR(CKD) 88 (>60 ml/min/1.73 sqM); Potassium 3.9 mmol/L (3.5-5.1); Sodium 142 mmol/L (137-145); Total Bilirubin 0.8 mg/dL (0.2-1.3); Total Protein 6.7 g/dL (6.3-8.2)
[2023-07-16] MEDS ORDERED: SODIUM CHLORIDE 0.9% 1,000 ML IV STA (10:55)
[2023-07-16] MEDS ORDERED: ONDANSETRON 4 MG/2 ML VIAL IVP PRN (11:36)
[2023-07-16] MEDS ORDERED: HYDROcodone/APAP 5-325MG 1 EACH TAB PO PRN (11:36)
[2023-07-16] MEDS ORDERED: MORPHINE SULFATE 4 MG/ML SYRINGE IV PRN (11:36)
[2023-07-16] MEDS ORDERED: NALOXONE 0.4 MG/ML 1 ML VIAL IV PRN (11:36)
--- NOTE | 2023-07-16 11:36 | ED ---
Recheck HPI - General Chief Complaint: Recheck/Abnormal Lab/Rx Stated Complaint: HTN,L arm pain Time Seen by Provider: 07/16/23 10:38 Source: patient, RN notes reviewed Mode of arrival: ambulatory Limitations: no limitations - History of Present Illness Initial Comments: This is a 72-year-old female who presents to the emergency department for elevated blood pressure and night sweats. Patient states that over the last 3 days, she wakes up the middle of the night with night sweats and body aches. She checks her blood pressure, and states that it has been elevated in the 200s systolically. She has also noticed that her heart rate fluctuates a significant amount. She takes aspirin when symptoms occur, and states that this seems to offer some improvement. She does report minor associated shortness of breath. She is concerned because symptoms feel similar as to when she did have a prior KS. Notes that she had a recent echocardiogram with Dr. Zepeda about 10 days ago, and was told that this was normal. Denies any fevers, sore throat, cough, chest pain, palpitations, abdominal pain, nausea, vomiting, diarrhea, back pain, or headaches. - Related Data Home Medications Medication Instructions Recorded Confirmed Multivitamins, Thera [Multivitamin 1 tab PO DAILY 10/12/16 07/16/23 (formulary)] Pantoprazole [Protonix] 40 mg PO DAILY 10/05/19 07/16/23 Gabapentin [Neurontin] 300 mg PO Q8H 02/18/20 07/16/23 metFORMIN HCL 500 mg PO DAILY 02/18/20 07/16/23 Levothyroxine Sodium [Synthroid] 88 mcg PO DAILY 11/26/20 07/16/23 Atorvastatin [Lipitor] 40 mg PO HS 07/16/23 07/16/23 Furosemide [Lasix] 40 mg PO DAILY 07/16/23 07/16/23 Isosorbide Dinitrate 30 mg PO DAILY 07/16/23 07/16/23 Metoprolol Tartrate [Lopressor] 100 mg PO BID 07/16/23 07/16/23 Omeprazole 40 mg PO DAILY 07/16/23 07/16/23 Potassium Chloride ER [K-Dur 20] 20 meq PO DAILY 07/16/23 07/16/23 Zinc Gluconate [Zinc] 50 mg PO DAILY 07/16/23 07/16/23 amLODIPine [Norvasc] 5 mg PO DAILY 07/16/23 07/16/23 Previous Rx's Medication Instructions Recorded Nitroglycerin Sl Tabs [Nitrostat] 0.4 mg SUBLINGUAL Q5M PRN 90 Days 01/10/21 #90 tab Apixaban [Eliquis] 5 mg PO BID #60 tab 01/15/21 Acetaminophen Tab [Tylenol] 650 mg PO Q6HR PRN tab 01/20/21 Albuterol Inhaler [Ventolin Hfa 2 puff INHALATION RT-QID PRN 30 01/20/21 Inhaler] Days #1 puff Aspirin 81 mg PO DAILY chew 01/20/21 Magnesium Oxide [Mag-Ox] 400 mg PO DAILY 30 Days #30 tab 01/20/21 Allergies Allergy/AdvReac Type Severity Reaction Status Date / Time No Known Allergies Allergy Verified 07/16/23 12:40 Review of Systems ROS Statement: Those systems with pertinent positive or pertinent negative responses have been documented in the HPI. ROS Other: All systems not noted in ROS Statement are negative. Past Medical History Past Medical History: Diabetes Mellitus, GERD/Reflux, Hyperlipidemia, Hypertension, Myocardial Infarction (KS), Osteoarthritis (OA), Rheumatoid Arthritis (RA), Sleep Apnea/CPAP/BIPAP Additional Past Medical History / Comment(s): HX Kidney Stones. DIVERTICULITIS . BLOOD PRESSURE FLUCTUATES, LOOP recorder over a year ago. NARROWING OF SPINE W/ DISC PROB. USES C-PAP Last Myocardial Infarction Date:: 06/28/18 History of Any Multi-Drug Resistant Organisms: None Reported Past Surgical History: Cholecystectomy, Heart Catheterization With Stent, Hysterectomy Additional Past Surgical History / Comment(s): Lithotripsy, basket retrieval of kidney stones, COLONOSCOPY, PFO closure & loop recorder removal 01/08 Past Anesthesia/Blood Transfusion Reactions: No Reported Reaction Additional Past Anesthesia/Blood Transfusion Reaction / Comment(s): BLOOD TRANSUFSION WHEN HAVING HER CHILDREN-NO REACTIONS TO BLOOD. Date of Last Stent Placement:: 06/28/18 Past Psychological History: No Psychological Hx Reported Smoking Status: Former smoker Past Alcohol Use History: None Reported Past Drug Use History: None Reported - Past Family History Mother Family Medical History: Cancer Additional Family Medical History / Comment(s): HAD LYMPHOMA THEN 15 YEARS LATER HAD SMALL CELL CA(TOMACH) Father Family Medical History: Myocardial Infarction (KS) Additional Family Medical History / Comment(s): PT WAS 9 YEARS OLD WHEN HER FATHER FROM MASSIVE KS. Brother(s) Family Medical History: Coronary Artery Disease (CAD), Myocardial Infarction (KS) Additional Family Medical History / Comment(s): Pt had a 42 yrs old brother of a massive KS and another brother who had CABG at the age of 39yrs. Sister(s) Family Medical History: Cancer General Exam Limitations: no limitations General appearance: alert, in no apparent distress Head exam: Present: atraumatic, normocephalic, normal inspection Respiratory exam: Present: normal lung sounds bilaterally. Absent: respiratory distress, wheezes, rales, rhonchi, stridor Cardiovascular Exam: Present: regular rate, normal rhythm, normal heart sounds. Absent: systolic murmur, diastolic murmur, rubs, gallop, clicks Neurological exam: Present: alert, oriented X3, CN II-XII intact Psychiatric exam: Present: normal affect, normal mood Skin exam: Present: warm, dry, intact, normal color. Absent: rash Course Vital Signs 07/16/23 07/16/23 07/16/23 09:34 10:30 11:29 Temperature 98.1 F Pulse Rate 66 58 L 58 L Respiratory 20 16 18 Rate Blood Pressure 195/84 157/65 143/71 O2 Sat by Pulse 96 96 97 Oximetry 07/16/23 07/16/23 07/16/23 14:00 16:13 16:19 Temperature Pulse Rate 55 L 57 L 58 L Respiratory 18 16 16 Rate Blood Pressure 146/67 O2 Sat by Pulse 96 Oximetry 07/16/23 16:21 Temperature Pulse Rate 56 L Respiratory 20 Rate Blood Pressure 149/70 O2 Sat by Pulse 97 Oximetry Medical Decision Making - Medical Decision Making This is a 72-year-old female who presents to the emergency department for elevated blood pressure and night sweats. Was pt. sent in by a medical professional or institution? @ -No Did you speak to anyone other than the patient for history? @ -No Did you review nursing and triage notes? @ -Yes, and I agree, it is accurate with regards to the patient's symptoms. Were old charts reviewed? @ -No Differential Diagnosis? @ -Differential diaphoresis: KS, viral syndrome, thyroid problem, stress, fever, this is not meant to be an all-inclusive list. EKG interpreted by me (3pts min.)? @ -EKG interpreted by me demonstrating the following: Sinus rhythm. Ventricular rate 61 bpm, TX interval 160 ms, QRS duration 90 ms, QTC 452 ms. X-rays interpreted by me (1pt min.)? @ -Chest x-ray obtained, my interpretation identifies no localized consolidations or infiltrates. CT interpreted by me (1pt min.)? @ -Not obtained U/S interpreted by me (1pt. min.)? @ -Not obtained What testing was considered but not performed? (CT, X-rays, U/S, labs)? Why? @ -None What meds were considered but not given? Why? @ -None Did you discuss the management of the patient with other professionals? @ -Yes, Dr. Aburto, who accepts the patient for admission. Did you reconcile home meds? @ -No Was smoking cessation discussed for >3mins.? @ -No Was critical care preformed (if so, how long)? @ -No Were there social determinants of health that impacted care today? How? (Homelessness, low income, unemployed, alcoholism, drug addiction, transportation, low edu. Level, literacy, decrease access to med. care, assisted, rehab)? @ -No Was there de-escalation of care discussed even if they declined? (Discuss DNR or withdrawal of care, Hospice)? @ -No What co-morbidities impacted this encounter? (DM, HTN, Smoking, COPD, CAD, Cancer, CVA, Hep., AIDS, mental health diagnosis, sleep apnea, morbid obesity)? @ -DM, HLD, HTN, KS Was patient admitted / discharged? @ -Admitted. Lab work obtained and found to be nonactionable. Covid, influenza, and RSV testing were negative. Chest x-ray reveals no acute process. She was initially fairly hypertensive on arrival, however her pressure did start to improve. Given the patient's symptoms and multiple comorbidities, and because symptoms are similar to when she had the prior KS, patient admitted to medicine for further evaluation. Consult placed for cardiology. Serial troponi ns ordered as well. Undiagnosed new problem with uncertain prognosis? @ -None Drug Therapy requiring intensive monitoring for toxicity (Heparin, Nitro, Insulin, Cardizem)? @ -None Were any procedures done? @ -None Diagnosis/symptom? @ -Diaphoresis, dyspnea Acute, or Chronic, or Acute on Chronic? @ -Acute Uncomplicated (without systemic symptoms) or Complicated (systemic symptoms)? @ -Uncomplicated Side effects of treatment? @ -None Exacerbation, Progression, or Severe Exacerbation] @ -Not applicable Poses a threat to life or bodily function? @ -Unclear Diagnosis/symptom? @ -Hypertension Acute, or Chronic, or Acute on Chronic? @ -Chronic Uncomplicated (without systemic symptoms) or Complicated (systemic symptoms)? @ -Uncomplicated Side effects of treatment? @ -None Exacerbation, Progression, or Severe Exacerbation] @ -Progression Poses a threat to life or bodily function? @ -If it remains significantly elevated, it increases her risk for heart attacks and strokes. This case was discussed in detail with the attending ED physician, Dr. Frost. Presentation, findings, and treatment plan discussed in detail as well. - Lab Data Result diagrams: 07/16/23 09:50 07/16/23 09:50 Lab Results 07/16/23 07/16/23 07/16/23 Range/Units 09:50 09:50 09:50 WBC 7.2 (3.8-10.6) k/uL RBC 4.42 (3.80-5.40) m/uL Hgb 12.8 (11.4-16.0) gm/dL Hct 38.7 (34.0-46.0) % MCV 87.7 (80.0-100.0) fL MCH 29.1 (25.0-35.0) pg MCHC 33.2 (31.0-37.0) g/dL RDW 14.3 (11.5-15.5) % Plt Count 228 (150-450) k/uL MPV 10.2 Neutrophils % 73 % Lymphocytes % 19 % Monocytes % 5 % Eosinophils % 1 % Basophils % 1 % Neutrophils # 5.3 (1.3-7.7) k/uL Lymphocytes # 1.4 (1.0-4.8) k/uL Monocytes # 0.3 (0-1.0) k/uL Eosinophils # 0.1 (0-0.7) k/uL Basophils # 0.0 (0-0.2) k/uL PT 10.5 (9.0-12.0) sec INR 1.0 (<1.2) APTT 26.0 (22.0-30.0) sec Sodium 142 (137-145) mmol/L Potassium 3.9 (3.5-5.1) mmol/L Chloride 107 (98-107) mmol/L Carbon Dioxide 27 (22-30) mmol/L Anion Gap 8 mmol/L BUN 13 (7-17) mg/dL Creatinine 0.65 (0.52-1.04) mg/dL Est GFR (CKD-EPI)AfAm >90 (>60 ml/min/1.73 sqM) Est GFR (CKD-EPI)NonAf 88 (>60 ml/min/1.73 sqM) Glucose 163 H (74-99) mg/dL Calcium 8.8 (8.4-10.2) mg/dL Magnesium 1.8 (1.6-2.3) mg/dL Total Bilirubin 0.8 (0.2-1.3) mg/dL AST 25 (14-36) U/L ALT 23 (4-34) U/L Alkaline Phosphatase 134 H (38-126) U/L Troponin I (0.000-0.034) ng/mL Total Protein 6.7 (6.3-8.2) g/dL Albumin 4.0 (3.5-5.0) g/dL Influenza Type A (PCR) (Not Detectd) Influenza Type B (PCR) (Not Detectd) RSV (PCR) (Not Detectd) SARS-CoV-2 (PCR) (Not Detectd) 07/16/23 07/16/23 Range/Units 09:50 11:03 WBC (3.8-10.6) k/uL RBC (3.80-5.40) m/uL Hgb (11.4-16.0) gm/dL Hct (34.0-46.0) % MCV (80.0-100.0) fL MCH (25.0-35.0) pg MCHC (31.0-37.0) g/dL RDW (11.5-15.5) % Plt Count (150-450) k/uL MPV Neutrophils % % Lymphocytes % % Monocytes % % Eosinophils % % Basophils % % Neutrophils # (1.3-7.7) k/uL Lymphocytes # (1.0-4.8) k/uL Monocytes # (0-1.0) k/uL Eosinophils # (0-0.7) k/uL Basophils # (0-0.2) k/uL PT (9.0-12.0) sec INR (<1.2) APTT (22.0-30.0) sec Sodium (137-145) mmol/L Potassium (3.5-5.1) mmol/L Chloride (98-107) mmol/L Carbon Dioxide (22-30) mmol/L Anion Gap mmol/L BUN (7-17) mg/dL Creatinine (0.52-1.04) mg/dL Est GFR (CKD-EPI)AfAm (>60 ml/min/1.73 sqM) Est GFR (CKD-EPI)NonAf (>60 ml/min/1.73 sqM) Glucose (74-99) mg/dL Calcium (8.4-10.2) mg/dL Magnesium (1.6-2.3) mg/dL Total Bilirubin (0.2-1.3) mg/dL AST (14-36) U/L ALT (4-34) U/L Alkaline Phosphatase (38-126) U/L Troponin I <0.012 (0.000-0.034) ng/mL Total Protein (6.3-8.2) g/dL Albumin (3.5-5.0) g/dL Influenza Type A (PCR) Not Detected (Not Detectd) Influenza Type B (PCR) Not Detected (Not Detectd) RSV (PCR) Not Detected (Not Detectd) SARS-CoV-2 (PCR) Not Detected (Not Detectd) - Radiology Data Radiology results: report reviewed, image reviewed Disposition Clinical Impression: Diaphoresis, HTN (hypertension), Dyspnea Disposition: ADMITTED IP TO THIS HOSP
[2023-07-16] MEDS ORDERED: NITROGLYCERIN SL TABS 0.4 MG TAB SUBLINGUAL PRN (14:33)
[2023-07-16] MEDS ORDERED: ALBUTEROL NEBULIZED 2.5 MG/3 ML INHALATION PRN (14:33)
[2023-07-16] MEDS: GABAPENTIN 300 MG CAP PO SCH ×2 (15:16→23:27)
[2023-07-16 15:21] LABS: Glucose,Whole Blood 92 mg/dL (70-110)
[2023-07-16 15:21] LABS: NT-Pro-B-Type Natriuretic Pept 137 pg/mL
--- NOTE | 2023-07-16 15:36 | CT ---
EXAMINATION TYPE: CT chest wo con DATE OF EXAM: 07/16/2023 COMPARISON: 321 HISTORY: Dyspnea, hypotension, diaphoretic. Hx heart sx, OR CT DLP: 724.[address] of the chest was performed with lung and mediastinal window settings submitted. The la ck of contrast limits evaluation of the vascular, mediastinal and parenchymal structures including th e upper abdomen. LUNGS: The lungs are clear and free of infiltrate. No atelectasis. No pulmonary nodule or mass is de tected. No pleural effusion. No CT evidence of interstitial lung disease. MEDIASTINUM/JOE: Thoracic aorta is of normal caliber with limited evaluation given lack of contrast . The heart is not enlarged. No evidence for mediastinal mass. No lymph nodes greater than 1cm. UPPER ABDOMEN: No significant abnormality is seen. OTHER: No significant other abnormality. IMPRESSION: 1. No acute intrathoracic process.
[2023-07-16] MEDS: IPRATROPIUM-ALBUTEROL 3 ML NEB INHALATION SCH ×2 (16:13→20:13)
[2023-07-16] MEDS: ACETAMINOPHEN TAB 325 MG TAB PO PRN (18:03)
[2023-07-16] MEDS: BUDESONIDE 0.5 MG/2 ML NEBU INHALATION SCH (20:13)
[2023-07-16] MEDS: METOPROLOL TARTRATE 50 MG TAB PO SCH (20:22)
[2023-07-16] MEDS: ATORVASTATIN 40 MG TAB PO SCH (20:22)
[2023-07-16] MEDS: APIXABAN 5 MG TAB PO SCH (20:22)
[2023-07-16 22:29] LABS: Glucose,Whole Blood 112 mg/dL (70-110)
--- NOTE | 2023-07-17 01:21 | HP ---
HISTORY AND PHYSICAL HISTORY OF PRESENT ILLNESS: A 72-year-old white female, came in due to blood pressure in the high 200s-220s at night. She was admitted for a monitor for blood pressure over the next 24 hours. She became lightheaded, dizziness and short of breath at night, similar to when she had a prior MO and a prior PFO that had to be repaired. She had an echo at Dr. Zepeda, said she was normal recently. HOME MEDICINES: 1. Multivitamin. 2. Protonix. 3. Zetia. 4. Neurontin. 5. Metformin. 6. Imdur. 7. Lipitor. 8. Plavix. 9. Nitrostat. 10.Eliquis. 11.Ventolin HFA. 12.Mag-Ox. 13.Lopressor. 14. . 15.Hexadrol. 16.Decadron. 17.Mucinex. ALLERGIES: Negative. REVIEW OF SYSTEMS: 14-point review of systems otherwise negative. PAST MEDICAL HISTORY: Diabetes mellitus, GERD, dyslipidemia, hypertension, myocardial infarction, osteoarthritis, rheumatoid arthritis, sleep apnea, history of renal stones. FAMILY HISTORY: Father with myocardial infarction. Mother with cancer, lymphoma. PHYSICAL EXAM: VITAL SIGNS: Temp 98.1 pulse 60s to 70s, blood pressure 190s on admission to , respiratory rate 16 to 18, O2 96 to 97. CARDIOVASCULAR: S1, S2. LUNGS: Decreased breath sounds x4. ABDOMEN: Distended. ENDOCRINE: BMI is over 30. PSYCH: Poor mood and affect. ASSESSMENT: 1. Hypertension acceleration. 2. History of sleep apnea. 3. Hypoxemic respiratory failure. PLAN: Continue current treatments. Prognosis guarded. Wait for cardiac recommendations. CT of the chest and echo ordered pending. Cardiology consult at this time. Prognosis guarded. MMODL / IJN: [id number] /
[2023-07-17] MEDS: ACETAMINOPHEN TAB 325 MG TAB PO PRN (01:38)
[2023-07-17] MEDS: PANTOPRAZOLE 40 MG TABLET PO SCH (06:15)
[2023-07-17] MEDS: LEVOTHYROXINE 88 MCG TAB PO SCH (06:23)
[2023-07-17 06:33] LABS: Glucose,Whole Blood 125 mg/dL (70-110)
[2023-07-17] MEDS: IPRATROPIUM-ALBUTEROL 3 ML NEB INHALATION SCH ×4 (07:45→20:49)
[2023-07-17] MEDS: BUDESONIDE 0.5 MG/2 ML NEBU INHALATION SCH ×2 (07:45→20:49)
[2023-07-17] MEDS ORDERED: amLODIPine 5 MG TAB PO SCH (09:00)
[2023-07-17] MEDS: ASPIRIN 81 MG PO SCH (10:01)
[2023-07-17] MEDS: METOPROLOL TARTRATE 50 MG TAB PO SCH ×2 (10:01→20:12)
[2023-07-17] MEDS: ZINC SULFATE 220 MG CAP PO SCH (10:01)
[2023-07-17] MEDS: MULTIVITAMINS, THERA 1 EACH TAB PO SCH (10:01)
[2023-07-17] MEDS: FUROSEMIDE 40 MG TAB PO SCH (10:03)
[2023-07-17] MEDS: POTASSIUM CHLORIDE ER 20 MEQ TAB.ER PO SCH (10:03)
[2023-07-17] MEDS: amLODIPine 10 MG TAB PO SCH (10:03)
[2023-07-17] MEDS: APIXABAN 5 MG TAB PO SCH ×2 (10:03→20:12)
[2023-07-17] MEDS: ISOSORBIDE DINITRATE 10 MG TAB PO SCH (10:04)
[2023-07-17] MEDS: MAGNESIUM OXIDE 400 MG TAB PO SCH (10:04)
[2023-07-17] MEDS: GABAPENTIN 300 MG CAP PO SCH ×3 (10:04→23:40)
--- NOTE | 2023-07-17 10:25 | US ---
EXAMINATION TYPE: US renal artery duplex plate DATE OF EXAM: 07/17/2023 COMPARISON: NONE CLINICAL INDICATION: Female, 72 years old with history of hypertension, r/o stenosis; HTN for 10 year s, patient on medication MEASUREMENTS: RENAL SIZE: Rt Kidney: 11.4 x 5.4 x 4.7cm Lt Kidney: 11.9 x 5.3 x 4.5cm RESISTANCE INDEX Right: 0.73 Left: 0.71 RA/AO RATIO (< 3.5 ) Right: 2.0 Left: 2.3 RA VELOCITY ( < 180 cm/s) Right: 162.9cm/s Left: 191.7cm/s Technical limitations due to patient's body habitus and large amount of overlying bowel gas. Aorta obscured. Renals appear unremarkable. Limited evaluation of renal arteries. Proximal left renal arter y appears mildly elevated IMPRESSION: Mild left renal artery stenosis by systolic velocity. No evidence for right renal artery stenosis.
--- NOTE | 2023-07-17 10:52 | CONS ---
CONSULTATION HISTORY OF PRESENT ILLNESS: Thelma is a 72-year-old lady with history of paroxysmal atrial fibrillation, hypertension, gxx-cbqbhyy-oclwghuhn diabetes, and history of PFO, status post Amplatz device closure, comes to hospital because of elevated blood pressures. The patient has had multiple prior hospitalizations with similar symptomatology. She states that over 4 days prior to coming in, she felt that her blood pressures were high. She felt uncomfortable and was waking up in the middle of the night with sweats, body aches, joint pains, and calf pain. She did not have any episodes of chest discomfort. It is not where she is short of breath. She has known CAD and had undergone prior cardiac catheterization and angioplasty in December 2020. The patient had angioplasty with stent placement of right coronary artery in the past with mild nonobstructive CAD involving LAD and circ. She underwent cardiac catheterization in December 2020 and was advised medical therapy. She also had a PFO that was closed at that time by Dr. Dutta. At the time of my evaluation this morning, she appears comfortable at rest and is free of symptoms. She had 3 sets of troponins that are all negative and has a BNP that is within normal limits. Blood pressure is still elevated this morning at 176/80. The patient has had workup for secondary hypertension including serum metanephrines, aldosterone, renin, and cortisol in 2020. Other than renin being slightly elevated, her workup was benign at that time. I am going to obtain a renal artery duplex scan to rule out renal artery stenosis. I will obtain a 2D echo to assess her LV function and wall motion. I will more optimally control her blood pressure starting losartan 50 mg daily and if necessary, increase it to 100, and increase the dose of amlodipine. PAST MEDICAL HISTORY: Significant for paroxysmal atrial fibrillation, PFO, status post Amplatz device closure, CAD, status post angioplasty of right coronary artery, hypothyroidism, hypertension, and diabetes. MEDICATIONS: Medications at home included: 1. Omeprazole 40 daily. 2. Lopressor 100 b.i.d. 3. Lasix 40 daily. 4. Norvasc 5 daily. 5. K-Dur 20 daily. 6. Imdur 30 daily. 7. Lipitor 40 daily. 8. Metformin 500. 9. Protonix 40. 10.Synthroid. 11.Aspirin. 12.Apixaban 5 b.i.d. 13.Neurontin. 14.Zinc. 15.Ventolin inhaler. 16.Tylenol. ALLERGIES: There are no known drug allergies. FAMILY HISTORY: Negative for premature coronary artery disease. SOCIAL HISTORY: Negative for smoking, EtOH abuse, or drug abuse. REVIEW OF SYSTEMS: HEENT: Unremarkable. CARDIAC: As described above. RESPIRATORY: Negative. GI: Negative. GENITOURINARY: Negative. ALLERGY/IMMUNOLOGY: Negative. SKIN: Negative. MUSCULOSKELETAL: Significant for arthritis and musculoskeletal pain. PSYCHOSOCIAL: Negative. DERM: Negative. CONSTITUTIONAL: Negative. ONCOLOGICAL: Negative. DESIGN AGENT: Negative. Rest of the system review is not relevant. PHYSICAL EXAMINATION: VITAL SIGNS: Afebrile. Heart rate is 60 beats per minute. Blood pressure is 176/82, respiratory rate is 18, O2 saturation is 97% on room air. NECK: There is no jugular venous distention. Carotid upstroke is normal. There is no bruit. CHEST: Reveals good air entry bilaterally. HEART: Reveals first and second heart sounds. An S4 is heard. ABDOMEN: Soft. EXTREMITIES: Exam of extremities did not reveal any edema. Peripheral pulses are palpable. ASSESSMENT AND PLAN: 1. Severe uncontrolled hypertension. 2. Paroxysmal atrial fibrillation. 3. Patent foramen ovale, status post closure. 4. Coronary artery disease, status post angioplasty with stent placement of right coronary artery. PLAN: EKG does not reveal ischemic changes. Cardiac enzymes have been negative. I will feed the patient. Follow the echo results. Adjust the antihypertensive therapy. Ambulate her and decide on further course of action. MMODL / IJN: [id number] /
[2023-07-17 11:38] LABS: Glucose,Whole Blood 128 mg/dL (70-110)
[2023-07-17] MEDS: LOSARTAN 50 MG TAB PO SCH (11:54)
[2023-07-17 16:34] VITALS: RESP 18
[2023-07-17 16:35] LABS: Glucose,Whole Blood 108 mg/dL (70-110)
--- NOTE | 2023-07-17 16:50 | CA ---
Transthoracic Echo Report Name: Thelma Mohan Age: 72 Gender: F : 1950 Exam Date: 07/17/2023 08:14 Exam Location: [facility] Ht (in): 63 Wt (lb): 250 Ordering Physician: Nakul Aburto MD Attending/Referring Phys: Graduate Recruiter Chen Gross RDCS Procedure CPT: Indications: bubble study Cardiac Hx: Technical Quality: Technically difficult study Contrast 1: Lumason Total Dose (mL): 4 Contrast 2: Total Dose (mL): MEASUREMENTS (Male / Female) Normal Values 2D ECHO LV Diastolic Diameter PLAX 4.4 cm 4.2 - 5.9 / 3.9 - 5.3 cm LV Systolic Diameter PLAX 2.6 cm IVS Diastolic Thickness 1.5 cm 0.6 - 1.0 / 0.6 - 0.9 cm LVPW Diastolic Thickness 1.2 cm 0.6 - 1.0 / 0.6 - 0.9 cm LV Relative Wall Thickness 0.6 RV Internal Dim ED PLAX 4.0 cm LA Volume 59.0 cm??? 18 - 58 / 22 - 52 cm??? M-MODE Aortic Root Diameter MM 3.8 cm LA Systolic Diameter MM 4.7 cm LA Ao Ratio MM 1.3 AV Cusp Separation MM 1.8 cm DOPPLER AV Peak Velocity 154.6 cm/s AV Peak Gradient 9.6 mmHg AV Mean Velocity 106.0 cm/s AV Mean Gradient 5.1 mmHg AV Velocity Time Integral 37.1 cm LVOT Peak Velocity 97.7 cm/s LVOT Peak Gradient 3.8 mmHg LVOT Velocity Time Integral 32.3 cm MV Area PHT 3.0 cm??? Mitral E Point Velocity 97.6 cm/s Mitral A Point Velocity 104.2 cm/s Mitral E to A Ratio 0.9 MV Deceleration Time 250.8 ms MV E' Velocity 5.8 cm/s Mitral E to MV E' Ratio 16.9 TR Peak Velocity 280.4 cm/s TR Peak Gradient 31.5 mmHg Right Ventricular Systolic Press 36.5 mmHg FINDINGS Left Ventricle Moderately increased left ventricular wall thickness. Left ventricular cavity size normal. Normal left ventricular systolic function with no obvious regional wall motion abnormalities. Left ventricular ejection fraction is estimated at 55-60 %. Right Ventricle Moderate right ventricular dilatation. Mild pulmonary hypertension. Right ventricular systolic pressure estimated at 37 mm hg. Right Atrium Normal right atrial size. Could not perform saline bubble study due to poor quality of the images Left Atrium Mildly increased left atrial volume. PFO closure device noted . Mitral Valve Structurally normal mitral valve. No mitral stenosis, regurgitation or prolapse. Aortic Valve Trileaflet aortic valve. No aortic valve stenosis or regurgitation. Tricuspid Valve Structurally normal tricuspid valve. Mild tricuspid regurgitation. Pulmonic Valve Structurally normal pulmonic valve. Trace pulmonic regurgitation. Pericardium No pericardial effusion. Aorta Normal size aortic root and proximal ascending aorta. CONCLUSIONS Left ventricular ejection fraction 55-60% Moderate increased left ventricular wall thickness Mild to moderate right ventricular dilation RVSP 37 Bubble study unable to be performed, PFO closure device noted Mild tricuspid regurgitation Previewed by: Dr. Payam Denis DO (Electronically Signed) Final Date: 17 July 2023 16:50
[2023-07-17] MEDS ORDERED: MAG HYDROX/AL HYDROX/SIMETH 30 ML CUP PO PRN (18:03)
[2023-07-17] MEDS: ATORVASTATIN 40 MG TAB PO SCH (20:12)
[2023-07-17 20:51] LABS: Glucose,Whole Blood 153 mg/dL (70-110)
[2023-07-18 06:05] LABS: Glucose,Whole Blood 117 mg/dL (70-110)
[2023-07-18] MEDS: PANTOPRAZOLE 40 MG TABLET PO SCH (06:13)
[2023-07-18] MEDS: LEVOTHYROXINE 88 MCG TAB PO SCH (06:13)
[2023-07-18] MEDS: IPRATROPIUM-ALBUTEROL 3 ML NEB INHALATION SCH ×2 (07:55→11:34)
[2023-07-18] MEDS: BUDESONIDE 0.5 MG/2 ML NEBU INHALATION SCH (07:55)
[2023-07-18] MEDS: FUROSEMIDE 40 MG TAB PO SCH (09:00)
[2023-07-18] MEDS: GABAPENTIN 300 MG CAP PO SCH (09:00)
[2023-07-18] MEDS: METOPROLOL TARTRATE 50 MG TAB PO SCH (09:00)
[2023-07-18] MEDS: LOSARTAN 50 MG TAB PO SCH (09:00)
[2023-07-18] MEDS: MAGNESIUM OXIDE 400 MG TAB PO SCH (09:00)
[2023-07-18] MEDS: ISOSORBIDE DINITRATE 10 MG TAB PO SCH (09:00)
[2023-07-18] MEDS: ZINC SULFATE 220 MG CAP PO SCH (09:00)
[2023-07-18] MEDS: MULTIVITAMINS, THERA 1 EACH TAB PO SCH (09:00)
[2023-07-18] MEDS: POTASSIUM CHLORIDE ER 20 MEQ TAB.ER PO SCH (09:00)
[2023-07-18] MEDS: APIXABAN 5 MG TAB PO SCH (09:00)
[2023-07-18] MEDS: ASPIRIN 81 MG PO SCH (09:00)
[2023-07-18] MEDS: amLODIPine 10 MG TAB PO SCH (09:00)
--- NOTE | 2023-07-18 11:42 | P.PN ---
Subjective HISTORY OF PRESENT ILLNESS: This is 72-year-old female who is admitted to the hospital secondary to uncontrolled hypertension. Patient examined this morning at the bedside. Her spouse is present. Patient's blood pressures have significantly improved [place] syst[place] [address]. She denies chest pain or pressure. She denies shortness of breath. 2-D echo completed revealing ejection fraction 55- 60%, mild pulmonary hypertension, mild tricuspid regurgitation. Renal artery duplex reveals mild left renal artery stenosis. No evidence for right renal artery stenosis. PHYSICAL EXAM: VITAL SIGNS: Reviewed. GENERAL: Well-developed in no acute distress. NECK: Supple. No JVD or thyromegaly LUNGS: Respirations even and unlabored. Lungs essentially clear to auscultation bilaterally. HEART: Regular rate and rhythm. S1 and S2 heard. EXTREMITIES: Normal range of motion. No clubbing or cyanosis. Peripheral pulses intact. No lower extremity edema ASSESSMENT: Hypertension, uncontrolled Paroxysmal atrial fibrillation History of PFO, status post closure Coronary artery disease with previous stenting PLAN: Continue current cardiac medications Continue to monitor blood pressure Patient may be discharged home today from a cardiac standpoint Nurse practitioner note has been reviewed by physician. Signing provider agrees with the documented findings, assessment, and plan of care. Objective - Vital Signs Vital signs: Vital Signs Temp 97.8 F 07/18/23 08:14 Pulse 65 07/18/23 11:35 Resp 18 07/18/23 08:14 BP 151/80 07/18/23 08:14 Pulse Ox 98 07/18/23 08:14 FiO2 Intake & Output 07/17/23 07/18/23 07/18/23 18:59 06:59 18:59 Intake Total 190 Balance 190 Intake: IV 10 Invasive Line 1 10 Oral 180 Other: # Voids 1 1 - Labs CBC & Chem 7: 07/16/23 09:50 07/16/23 09:50 Labs: Abnormal Lab Results - Last 24 Hours (Table) 07/17/23 07/17/23 07/18/23 Range/Units 11:36 20:50 06:03 POC Glucose (mg/dL) 128 H 153 H 117 H (70-110) mg/dL
[2023-07-18 11:48] VITALS: PULSE 68
[2023-07-18 11:49] LABS: Glucose,Whole Blood 141 mg/dL (70-110)
[2023-07-18 13:13] VITALS: BP 117/67; TEMP 97.6
[2023-07-19] MEDS ORDERED: LOSARTAN 50 MG TAB PO SCH ×2 (09:00)
== END 2023-07-18 14:30 | disposition home or self-care (01) ==
LOC: EC 09:30 → 6NMEDSUR 11:32 → 3SCARD 07-17 05:46
PROVIDERS: ADMIT Family Medicine; ATTEND Family Medicine
DX: I10 Essential (primary) hypertension (principal); I48.0 Paroxysmal atrial fibrillation; J96.91 Respiratory failure, unspecified with hypoxia; Z87.798 Personal history of other (corrected) congenital malformations; I25.10 Atherosclerotic heart disease of native coronary artery without angina pectoris; E11.9 Type 2 diabetes mellitus without complications; K21.9 Gastro-esophageal reflux disease without esophagitis; E78.5 Hyperlipidemia, unspecified; M19.90 Unspecified osteoarthritis, unspecified site; M06.9 Rheumatoid arthritis, unspecified; G47.30 Sleep apnea, unspecified; Z95.5 Presence of coronary angioplasty implant and graft; Z98.890 Other specified postprocedural states; I25.2 Old myocardial infarction; I07.1 Rheumatic tricuspid insufficiency; I70.1 Atherosclerosis of renal artery; I27.20 Pulmonary hypertension, unspecified; Z79.84 Long term (current) use of oral hypoglycemic drugs; Z79.890 Hormone replacement therapy; Z79.01 Long term (current) use of anticoagulants; Z79.82 Long term (current) use of aspirin; Z79.02 Long term (current) use of antithrombotics/antiplatelets; Z79.52 Long term (current) use of systemic steroids; Z87.442 Personal history of urinary calculi; Z87.19 Personal history of other diseases of the digestive system; Z90.49 Acquired absence of other specified parts of digestive tract; Z87.891 Personal history of nicotine dependence; Z80.7 Family history of other malignant neoplasms of lymphoid, hematopoietic and related tissues; Z82.49 Family history of ischemic heart disease and other diseases of the circulatory system
CPT/HCPCS: 96361; 96374; 99285; 36415; 94640 ×5; 83880; 80053; 84443; 83735; 84484; 85025; 85610; 85730; 83036; 87636; 71046; 93975; 71250; G0378 ×4; C8929; J2405; Q9950; 93005; 93306

== ENCOUNTER 2024-01-24 13:34 | Inpatient (IN) | payer MEDICARE ==
--- NOTE | 2024-01-24 13:44 | ED ---
General Adult HPI - General Stated complaint: AFIB Time Seen by Provider: 01/24/24 13:35 Source: patient, EMS, RN notes reviewed Mode of arrival: EMS Limitations: no limitations - History of Present Illness Initial comments: Patient is a pleasant 73-year-old female present to the emergency department with concerns with chest discomfort. Onset of symptoms was a couple hours ago. Symptoms improved with nitroglycerin and are minimal at this point. No palpitations. Patient states there is a history of A-fib. Patient states her heart rate at home was as high as 170. Patient states discomfort felt like pressure. Patient did have some mild tingling of her left arm. Patient had some mild nausea and sweating. Patient also had associated dyspnea that has also resolved - Related Data Home Medications Medication Instructions Recorded Confirmed Multivitamins, Thera [Multivitamin 1 tab PO DAILY 10/12/16 01/24/24 (formulary)] Gabapentin [Neurontin] 300 mg PO Q8H 02/18/20 01/24/24 metFORMIN HCL 500 mg PO DAILY 02/18/20 01/24/24 Levothyroxine Sodium [Synthroid] 88 mcg PO DAILY 11/26/20 01/24/24 Atorvastatin [Lipitor] 40 mg PO HS 07/16/23 01/24/24 Furosemide [Lasix] 40 mg PO DAILY 07/16/23 01/24/24 Metoprolol Tartrate [Lopressor] 100 mg PO BID 07/16/23 01/24/24 Omeprazole 40 mg PO BID 07/16/23 01/24/24 Potassium Chloride ER [K-Dur 20] 20 meq PO DAILY 07/16/23 01/24/24 Zinc Gluconate [Zinc] 50 mg PO DAILY 07/16/23 01/24/24 Isosorbide Mononitrate ER [Imdur] 30 mg PO DAILY 01/24/24 01/24/24 Tirzepatide [Mounjaro] 2.5 mg SQ TU 01/24/24 01/24/24 amLODIPine [Norvasc] 5 mg PO DAILY 01/24/24 01/24/24 Previous Rx's Medication Instructions Recorded Nitroglycerin Sl Tabs [Nitrostat] 0.4 mg SUBLINGUAL Q5M PRN 90 Days 01/10/21 #90 tab Apixaban [Eliquis] 5 mg PO BID #60 tab 01/15/21 Aspirin 81 mg PO DAILY chew 01/20/21 Magnesium Oxide [Mag-Ox] 400 mg PO DAILY 30 Days #30 tab 01/20/21 Budesonide [Pulmicort] 0.5 mg INHALATION RT-BID 30 Days 07/18/23 #60 ml Ipratropium-Albuterol Nebulize 3 ml INHALATION RT-QID 30 Days 07/18/23 [Duoneb 0.5 mg-3 mg/3 ml Soln] #120 each Losartan [Cozaar] 50 mg PO DAILY 90 Days #90 tab 07/18/23 Allergies Allergy/AdvReac Type Severity Reaction Status Date / Time No Known Allergies Allergy Verified 01/24/24 13:55 Review of Systems ROS Statement: Those systems with pertinent positive or pertinent negative responses have been documented in the HPI. ROS Other: All systems not noted in ROS Statement are negative. Constitutional: Denies: fever Eyes: Denies: eye pain ENT: Denies: ear pain Respiratory: Reports: as per HPI. Denies: cough Cardiovascular: Reports: as per HPI, chest pain. Denies: palpitations Endocrine: Denies: fatigue Gastrointestinal: Reports: nausea. Denies: abdominal pain Musculoskeletal: Denies: back pain Past Medical History Past Medical History: Diabetes Mellitus, GERD/Reflux, Hyperlipidemia, Hypertension, Myocardial Infarction ([place]), Osteoarthritis (OA), Rheumatoid Arthritis (RA), Sleep Apnea/CPAP/BIPAP Additional Past Medical History / Comment(s): HX Kidney Stones. DIVERTICULITIS . BLOOD PRESSURE FLUCTUATES, LOOP recorder over a year ago taken out NARROWING OF SPINE W/ DISC PROB. USES C-PAP Last Myocardial Infarction Date:: 06/28/18 History of Any Multi-Drug Resistant Organisms: None Reported Past Surgical History: Cholecystectomy, Heart Catheterization With Stent, Hysterectomy Additional Past Surgical History / Comment(s): Lithotripsy, basket retrieval of kidney stones, COLONOSCOPY, PFO closure & loop recorder removal 01/08 Past Anesthesia/Blood Transfusion Reactions: No Reported Reaction Additional Past Anesthesia/Blood Transfusion Reaction / Comment(s): BLOOD TRANSUFSION WHEN HAVING HER CHILDREN-NO REACTIONS TO BLOOD. Date of Last Stent Placement:: 06/28/18 Past Psychological History: No Psychological Hx Reported Additional Psychological History / Comment(s): Pt resides with her spouse. She is independent. Smoking Status: Former smoker Past Alcohol Use History: None Reported Additional Past Alcohol Use History / Comment(s): STARTED SMOKING AT AGE 18 AND QUIT AT AGE 25 (LITE SMOKER) Past Drug Use History: None Reported - Past Family History Mother Family Medical History: Cancer Additional Family Medical History / Comment(s): HAD LYMPHOMA THEN 15 YEARS LATER HAD SMALL CELL CA(TOMACH) Father Family Medical History: Myocardial Infarction ([place]) Additional Family Medical History / Comment(s): PT WAS 9 YEARS OLD WHEN HER FATHER FROM MASSIVE MN. Brother(s) Family Medical History: Coronary Artery Disease (CAD), Myocardial Infarction (MN) Additional Family Medical History / Comment(s): Pt had a 42 yrs old brother of a massive MN and another brother who had CABG at the age of 39yrs. Sister(s) Family Medical History: Cancer General Exam Limitations: no limitations General appearance: alert, in no apparent distress Head exam: Present: normocephalic Eye exam: Present: normal appearance Neck exam: Present: normal inspection Respiratory exam: Present: normal lung sounds bilaterally. Absent: chest wall tenderness Cardiovascular Exam: Present: tachycardia, irregular rhythm Expanded Peripheral pulses: 2+: Radial (R), Radial (L), Posterior Tibialis (R), Posterior Tibialis (L) GI/Abdominal exam: Present: soft. Absent: tenderness Extremities exam: Present: normal inspection. Absent: pedal edema, calf tenderness Neurological exam: Present: alert Psychiatric exam: Present: normal affect, normal mood Skin exam: Present: normal color Course Vital Signs 01/24/24 01/24/24 13:50 15:54 Temperature 97.6 F 97.9 F Pulse Rate 129 H 115 H Respiratory 22 18 Rate Blood Pressure 170/89 134/87 O2 Sat by Pulse 96 96 Oximetry EKG Findings - EKG Results: EKG: interpreted by ERMD (Nonspecific ST-T), normal axis, normal QRS EKG shows: tachycardia, atrial fibrillation Medical Decision Making - Medical Decision Making Was pt. sent in by a medical professional or institution (, PA, PRODUCER DIRECTOR, urgent care, hospital, or care home...) When possible be specific @ -No Did you speak to anyone other than the patient for history (EMS, parent, family, police, friend...)? What history was obtained from this source @ -EMS helps provide history including heart rate during transfer Did you review nursing and triage notes (agree or disagree)? Why? @ -I reviewed and agree with nursing and triage notes Were old charts reviewed (outside hosp., previous admission, EMS record, old EKG, old radiological studies, urgent care reports/EKG's, care home records)? Report findings @ -Previous chest x-ray reviewed Differential Diagnosis (chest pain, altered mental status, abdominal pain women, abdominal pain men, vaginal bleeding, weakness, fever, dyspnea, syncope, headache, dizziness, GI bleed, back pain, seizure, CVA, palpatations, mental health, musculoskeletal)? @ -Differential Chest Pain: Stable Angina, Unstable Angina, STEMI, NSTEMI Aortic Dissection, Pneumothorax, Musculoskeletal, Esophageal Spasm GERD, Cholecystitis, Pancreatitis, Zoster, this is not meant to be an all-inclusive list. EKG interpreted by me (3pts min.). @ -As above X-rays interpreted by me (1pt min.). @ -Chest x-ray shows no acute process CT interpreted by me (1pt min.). @ -None done U/S interpreted by me (1pt. min.). @ -None done What testing was considered but not performed or refused? (CT, X-rays, U/S, labs)? Why? @ -None What meds were considered but not given or refused? Why? @ -None Did you discuss the management of the patient with other professionals (professionals i.e. , PA, PRODUCER DIRECTOR, lab, RT, psych nurse, social science analyst, acds block 1 operator, teacher, immigration services officer, residential case manager)? Give summary @ -Case was discussed with Dr. Aburto who will admit his patient Was smoking cessation discussed for >3mins.? @ -No Was critical care preformed (if so, how long)? @ -No Were there social determinants of health that impacted care today? How? (Homelessness, low income, unemployed, alcoholism, drug addiction, transportation, low edu. Level, literacy, decrease access to med. care, fdc, rehab)? @ -No Was there de-escalation of care discussed even if they declined (Discuss DNR or withdrawal of care, Hospice)? DNR status @ -No What co-morbidities impacted this encounter? (DM, HTN, Smoking, COPD, CAD, Cancer, CVA, ARF, Chemo, Hep., AIDS, mental health diagnosis, sleep apnea, morbid obesity)? @ -None Was patient admitted / discharged? Hospital course, mention meds given and route, prescriptions, significant lab abnormalities, going to OR and other pertinent info. @ -Patient reevaluated and improved. Heart rate between 105 and 110 on the monitor, remains in atrial fibrillation. Patient feeling better. Patient and family updated on results and plan. Patient will be admitted with cardiac consult. Admission orders written. Undiagnosed new problem with uncertain prognosis? @ -No Drug Therapy requiring intensive monitoring for toxicity (Heparin, Nitro, Insulin, Cardizem)? @ -No Were any procedures done? @ -No Diagnosis/symptom? @ -Chest pain, A-fib Acute, or Chronic, or Acute on Chronic? @ -Acute, chronic Uncomplicated (without systemic symptoms) or Complicated (systemic symptoms)? @ -Default Side effects of treatment? @ -No Exacerbation, Progression, or Severe Exacerbation? @ -No Poses a threat to life or bodily function? How? (Chest pain, [place], [place], pneumonia, PE, COPD, DKA, ARF, appy, cholecystitis, CVA, Diverticulitis, Homicidal, Suicidal, threat to staff... and all critical care pts) @ -No - Lab Data Result diagrams: 01/24/24 14:19 01/24/24 14:19 Lab Results 01/24/24 01/24/24 01/24/24 Range/Units 14:19 14:19 14:19 WBC 11.0 H (3.8-10.6) k/uL RBC 4.98 (3.80-5.40) m/uL Hgb 13.7 (11.4-16.0) gm/dL Hct 43.7 (34.0-46.0) % MCV 87.7 (80.0-100.0) fL MCH 27.5 (25.0-35.0) pg MCHC 31.3 (31.0-37.0) g/dL RDW 14.3 (11.5-15.5) % Plt Count 307 (150-450) k/uL MPV 9.3 Neutrophils % 77 % Lymphocytes % 16 % Monocytes % 5 % Eosinophils % 1 % Basophils % 1 % Neutrophils # 8.5 H (1.3-7.7) k/uL Lymphocytes # 1.8 (1.0-4.8) k/uL Monocytes # 0.5 (0-1.0) k/uL Eosinophils # 0.1 (0-0.7) k/uL Basophils # 0.1 (0-0.2) k/uL PT 10.3 (10.0-12.5) sec INR 0.9 (<1.2) APTT 25.3 (22.0-30.0) sec Sodium 145 (137-145) mmol/L Potassium 3.9 (3.5-5.1) mmol/L Chloride 108 H (98-107) mmol/L Carbon Dioxide 22 (22-30) mmol/L Anion Gap 15 mmol/L BUN 12 (7-17) mg/dL Creatinine 0.72 (0.52-1.04) mg/dL Est GFR (CKD-EPI)AfAm >90 (>60 ml/min/1.73 sqM) Est GFR (CKD-EPI)NonAf 83 (>60 ml/min/1.73 sqM) Glucose 149 H (74-99) mg/dL Calcium 9.1 (8.4-10.2) mg/dL Magnesium 1.9 (1.6-2.3) mg/dL Total Bilirubin 0.5 (0.2-1.3) mg/dL AST 26 (14-36) U/L ALT 28 (4-34) U/L Alkaline Phosphatase 188 H (38-126) U/L Troponin I (0.000-0.034) ng/mL NT-Pro-B Natriuret Pep 1380 pg/mL Total Protein 7.1 (6.3-8.2) g/dL Albumin 4.1 (3.5-5.0) g/dL 01/24/24 Range/Units 14:19 WBC (3.8-10.6) k/uL RBC (3.80-5.40) m/uL Hgb (11.4-16.0) gm/dL Hct (34.0-46.0) % MCV (80.0-100.0) fL MCH (25.0-35.0) pg MCHC (31.0-37.0) g/dL RDW (11.5-15.5) % Plt Count (150-450) k/uL MPV Neutrophils % % Lymphocytes % % Monocytes % % Eosinophils % % Basophils % % Neutrophils # (1.3-7.7) k/uL Lymphocytes # (1.0-4.8) k/uL Monocytes # (0-1.0) k/uL Eosinophils # (0-0.7) k/uL Basophils # (0-0.2) k/uL PT (10.0-12.5) sec INR (<1.2) APTT (22.0-30.0) sec Sodium (137-145) mmol/L Potassium (3.5-5.1) mmol/L Chloride (98-107) mmol/L Carbon Dioxide (22-30) mmol/L Anion Gap mmol/L BUN (7-17) mg/dL Creatinine (0.52-1.04) mg/dL Est GFR (CKD-EPI)AfAm (>60 ml/min/1.73 sqM) Est GFR (CKD-EPI)NonAf (>60 ml/min/1.73 sqM) Glucose (74-99) mg/dL Calcium (8.4-10.2) mg/dL Magnesium (1.6-2.3) mg/dL Total Bilirubin (0.2-1.3) mg/dL AST (14-36) U/L ALT (4-34) U/L Alkaline Phosphatase (38-126) U/L Troponin I <0.012 (0.000-0.034) ng/mL NT-Pro-B Natriuret Pep pg/mL Total Protein (6.3-8.2) g/dL Albumin (3.5-5.0) g/dL Disposition Clinical Impression: Chest pain, Atrial flutter Disposition: ADMITTED IP TO THIS HOSP Is patient prescribed a controlled substance at d/c from ED?: No Referrals: Nakul Aburto MD [Primary Care Provider] - 1-2 days Time of Disposition: 17:33
[2024-01-24 14:38] LABS: Basophils # (A) 0.1 k/uL (0-0.2); Basophils % (A) 1 %; Eosinophils # (A) 0.1 k/uL (0-0.7); Eosinophils % (A) 1 %; HCT 43.7 % (34.0-46.0); HGB 13.7 gm/dL (11.4-16.0); Lymphocytes # (A) 1.8 k/uL (1.0-4.8); Lymphocytes % (A) 16 %; MCH 27.5 pg (25.0-35.0); MCHC 31.3 g/dL (31.0-37.0); MCV 87.7 fL (80.0-100.0); Mean Platelet Volume 9.3; Monocytes # (A) 0.5 k/uL (0-1.0); Monocytes % (A) 5 %; Neutrophils # (A) 8.5 k/uL (1.3-7.7); Neutrophils % (A) 77 %; Platelet Count 307 k/uL (150-450); RBC 4.98 m/uL (3.80-5.40); RDW 14.3 % (11.5-15.5)
[2024-01-24 14:56] LABS: INR 0.9 (<1.2); Partial Thromboplastin Time 25.3 sec (22.0-30.0); Prothrombin Time 10.3 sec (10.0-12.5)
[2024-01-24 14:59] LABS: NT-Pro-B-Type Natriuretic Pept 1380 pg/mL
[2024-01-24 15:49] LABS: ALT 28 U/L (4-34); AST 26 U/L (14-36); African American GFR (CKD) >90 (>60 ml/min/1.73 sqM); Albumin 4.1 g/dL (3.5-5.0); Alkaline Phosphatase 188 U/L (38-126); Anion Gap 15 mmol/L; Blood Urea Nitrogen 12 mg/dL (7-17); Calcium 9.1 mg/dL (8.4-10.2); Carbon Dioxide 22 mmol/L (22-30); Chloride 108 mmol/L (98-107); Glucose 149 mg/dL (74-99); Magnesium 1.9 mg/dL (1.6-2.3); Non-African American GFR(CKD) 83 (>60 ml/min/1.73 sqM); Potassium 3.9 mmol/L (3.5-5.1); Sodium 145 mmol/L (137-145); Total Bilirubin 0.5 mg/dL (0.2-1.3); Total Protein 7.1 g/dL (6.3-8.2)
--- NOTE | 2024-01-24 16:10 | XR ---
EXAMINATION TYPE: XR chest 2V DATE OF EXAM: 01/24/2024 COMPARISON: 07/16/2023 INDICATION: Intermittent chest pain and palpitations TECHNIQUE: Frontal and lateral views of the chest are obtained. FINDINGS: The heart size is normal. The pulmonary vasculature is normal. The lungs are clear. IMPRESSION: 1. No acute pulmonary process.
[2024-01-24] MEDS ORDERED: NITROGLYCERIN SL TABS 0.4 MG TAB SUBLINGUAL PRN ×2 (17:33→19:15)
[2024-01-24] MEDS: ASPIRIN 81 MG PO STA (18:26)
[2024-01-24] MEDS: NITROGLYCERIN OINT 1 INCH/GM PACKET TOPICAL SCH (18:27)
[2024-01-24] MEDS: PANTOPRAZOLE 40 MG TABLET PO SCH (21:23)
[2024-01-24] MEDS: APIXABAN 5 MG TAB PO SCH (21:23)
[2024-01-24] MEDS: ATORVASTATIN 40 MG TAB PO SCH (21:23)
[2024-01-24] MEDS: METOPROLOL TARTRATE 50 MG TAB PO SCH (21:23)
[2024-01-24] MEDS: BUDESONIDE 0.5 MG/2 ML NEBU INHALATION SCH (21:53)
[2024-01-24] MEDS: IPRATROPIUM-ALBUTEROL 3 ML NEB INHALATION SCH (21:53)
[2024-01-24] MEDS ORDERED: ACETAMINOPHEN TAB 325 MG TAB PO PRN (23:15)
[2024-01-24] MEDS: GABAPENTIN 300 MG CAP PO SCH (23:22)
--- NOTE | 2024-01-25 04:12 | HP ---
HISTORY AND PHYSICAL 73-year-old white female came to the ER with hypertension acceleration, chest discomfort couple hours ago, improved with nitroglycerin. Her heart rate was AFib with RVR, heart rate of 170. She has some on the chest, tingling in her left arm, some mild nausea, vomiting, associated shortness of breath. HOME MEDICINES: 1. Lipitor 40 daily. 2. Synthroid 88 mcg daily. 3. Metformin 500 daily. 4. Neurontin 300 q.a.m. 5. Multivitamin daily. 6. Potassium chloride 20 mEq daily. 7. Omeprazole 40 b.i.d. 8. Lopressor 100 b.i.d. 9. Zinc oxide 50 daily. 10.Norvasc 5 daily. 11.Mounjaro 2.5 weekly. 12.Imdur 30 mg daily. ALLERGIES: Negative. REVIEW OF SYSTEMS: Fourteen-point review of systems otherwise negative. PAST MEDICAL HISTORY: 1. Diabetes mellitus. 2. GERD. 3. Hypertension. 4. Dyslipidemia. 5. Myocardial infarction. 6. Osteoarthritis. 7. Rheumatoid arthritis. 8. Sleep apnea. 9. Diverticulitis. FAMILY HISTORY: Mother with cancer, lymphoma. Father with myocardial infarction and coronary artery disease. Sister with cancer. PHYSICAL EXAMINATION: VITAL SIGNS: Heart rate is 113 to 129, temperature is 97.6, blood pressure 130s to 170s over 80s. O2 of 96%. Respiratory rate 18 to 22. EKG, atrial fibrillation, RVR. RESPIRATORY: Decreased breath sounds. CARDIOVASCULAR: S1, S2. Tachycardia. Irregular regular rhythm. EXTREMITIES: No cyanosis, clubbing, edema. NEUROLOGIC: Cranial nerves intact. PSYCH: Poor mood and affect. SKIN: Warm, dry, intact. ASSESSMENT: Atrial fibrillation with rapid ventricular response, atypical chest pain, rule out myocardial infarction, rule out pulmonary embolism. Chronic obstructive pulmonary disease, pulmonary hypertension. Leukocytosis, rule out viral syndrome. Diabetes mellitus, possible congestive heart failure, obesity. Prognosis guarded. Atrial fibrillation with rapid ventricular response, treated with Cardizem and possibly Cardizem drip if needed. Cardiology consult. Echos ordered. Prognosis guarded. History of a bubble study for patent foramen ovale has been . We will recheck it. MMODL / IJN: [id number] /
[2024-01-25] MEDS: LEVOTHYROXINE 88 MCG TAB PO SCH (06:11)
[2024-01-25] MEDS ORDERED: ASPIRIN 325 MG TAB PO SCH (09:00)
[2024-01-25] MEDS ORDERED: ASPIRIN 81 MG PO SCH (09:00)
[2024-01-25] MEDS: ZINC SULFATE 220 MG CAP PO SCH (09:45)
[2024-01-25] MEDS: MULTIVITAMINS, THERA 1 EACH TAB PO SCH (09:45)
[2024-01-25] MEDS: MAGNESIUM OXIDE 400 MG TAB PO SCH (09:45)
[2024-01-25] MEDS: POTASSIUM CHLORIDE ER 20 MEQ TAB.ER PO SCH (09:45)
[2024-01-25] MEDS: amLODIPine 5 MG TAB PO SCH (09:45)
[2024-01-25] MEDS: LOSARTAN 50 MG TAB PO SCH (09:46)
[2024-01-25] MEDS: FUROSEMIDE 40 MG TAB PO SCH (09:46)
[2024-01-25 09:53] LABS: Glucose,Whole Blood 146 mg/dL (70-110)
--- NOTE | 2024-01-25 10:31 | P.CRDCN ---
History of Present Illness History of present illness: HISTORY OF PRESENT ILLNESS: This is a 73-year-old female with a past medical history significant for coronary artery disease with previous PCI, paroxysmal atrial fibrillation, recurrent TIA, PFO closure, hypertension, hyperlipidemia, diabetes, and morbid obesity. Patient follows in the office with Dr. Zepeda. We have been asked to see the patient in consultation for chest pain. Patient examined at the bedside. Patient states yesterday she began to have palpitations. She also reports having chest pain. She states the pain went into her back and also into her left arm. She felt like her throat was swelling and had a dry mouth. She also noticed that her heart rate was high. She states that her symptoms felt to be worse when her heart rate was high. She also reports that she took her blood pressure at home and it was elevated. Patient presented to the ER for further evaluation. Patient was found to be in A-fib with mild RVR. Patient was just seen in the office by Dr. Zepeda on 01/09/2024 and was in sinus mechanism at that time. DIAGNOSTICS: - EKG reveals atrial fibrillation with mild RVR. - Chest xray negative for acute process - Laboratory data: WBC 11.0. Hemoglobin 13.7. Platelet count 307. Sodium 145. Sodium 3.9. BUN 12. Creatinine 0.72. Troponin negative x 3. proBNP 1380. TSH 1.920. Free T42.7. - Current home cardiac medications include Eliquis 5 mg twice a day, aspirin 81 mg daily, Imdur 30 mg daily, losartan 50 mg daily, amlodipine 5 mg daily, Lasix 40 mg daily, metoprolol tartrate 100 mg twice a day, and Lipitor 40 mg at night. - Most recent echocardiogram obtained in June 2023 revealed ejection fraction 55 to 60%, mild pulmonary hypertension, PFO closure device noted, mild TR - Cardiac catheterization history: December 2020 revealing patent stent within the right coronary artery and mild nonobstructive disease in the LAD and circumflex coronary artery REVIEW OF SYSTEMS: At the time of my exam: CONSTITUTIONAL: Denies fever or chills. HEENT: Denies blurred vision, vision changes, or eye pain. Denies hemoptysis CARDIOVASCULAR: Denies chest pain. Denies orthopnea. Denies PND. Denies palpitations RESPIRATORY: Denies shortness of breath. GASTROINTESTINAL: Denies abdominal pain. Denies nausea or vomiting. HEMATOLOGIC: Denies bleeding disorders. GENITOURINARY: Denies any blood in urine. SKIN: Denies pruitis. Denies rash. PHYSICAL EXAM: VITAL SIGNS: Reviewed. GENERAL: Well-developed in no acute distress. HEENT: Head is normocephalic. Pupils are equal, round. Sclerae anicteric. Mucous membranes of the mouth are moist. Neck supple. No JVD or thyromegaly LUNGS: Respirations even and unlabored. Lungs essentially clear to auscultation bilaterally. HEART: Mildly tachycardic. Irregular rate and rhythm. S1 and S2 heard. ABDOMEN: Soft. Nondistended. Nontender. EXTREMITIES: Normal range of motion. No clubbing or cyanosis. Peripheral pulses intact. No lower extremity edema NEUROLOGIC: Awake and alert. Oriented x 3. ASSESSMENT: Palpitations Chest pain, troponin negative x 3, suspect secondary to atrial fibrillation Paroxysmal atrial fibrillation with mild RVR, symptomatic Coronary artery disease with previous stenting of the RCA, 2018 Mild nonobstructive disease of the LAD and circumflex coronary artery History of recurrent TIA History of PFO closure device Hypertension Hyperlipidemia Diabetes Morbid obesity: BMI 45.2 History of loop recorder implantation and subsequent explantation PLAN: 2D echo has been ordered. Await results Resume home cardiac medications Continue anticoagulation with Eliquis Begin IV amiodarone bolus and drip Continue telemetry monitoring N.p.o. at midnight for possible cardioversion if patient remains in A-fib as she symptomatic. Patient will not require SOFIYA as she states she has been compliant with her Eliquis and has not missed any doses. Will consider outpatient stress test once patient's A-fib is controlled Further recommendations pending patient course Nurse practitioner note has been reviewed by physician. Signing provider agrees with the documented findings, assessment, and plan of care documented by MULTIMEDIA COORDINATOR as a scribe. Past Medical History Past Medical History: Atrial Fibrillation, Diabetes Mellitus, GERD/Reflux, Hy perlipidemia, Hypertension, Myocardial Infarction (OK), Osteoarthritis (OA), Rheumatoid Arthritis (RA), Sleep Apnea/CPAP/BIPAP Additional Past Medical History / Comment(s): HX Kidney Stones. DIVERTICULITIS, NARROWING OF SPINE W/ DISC PROB. USES C-PAP Last Myocardial Infarction Date:: 06/28/18 History of Any Multi-Drug Resistant Organisms: None Reported Past Surgical History: Cholecystectomy, Heart Catheterization With Stent, Hysterectomy Additional Past Surgical History / Comment(s): Lithotripsy, basket retrieval of kidney stones, COLONOSCOPY, PFO closure & loop recorder removal 01/08 Past Anesthesia/Blood Transfusion Reactions: No Reported Reaction Additional Past Anesthesia/Blood Transfusion Reaction / Comment(s): BLOOD TRANSUFSION WHEN HAVING HER CHILDREN-NO REACTIONS TO BLOOD. Date of Last Stent Placement:: 06/28/18 Past Psychological History: No Psychological Hx Reported Additional Psychological History / Comment(s): Pt resides with her spouse. She is independent. Smoking Status: Former smoker Past Alcohol Use History: None Reported Additional Past Alcohol Use History / Comment(s): STARTED SMOKING AT AGE 18 AND QUIT AT AGE 25 (LITE SMOKER) Past Drug Use History: None Reported - Past Family History Mother Family Medical History: Cancer Additional Family Medical History / Comment(s): HAD LYMPHOMA THEN 15 YEARS LATER HAD SMALL CELL CA(TOMACH) Father Family Medical History: Myocardial Infarction (OK) Additional Family Medical History / Comment(s): PT WAS 9 YEARS OLD WHEN HER FATHER FROM MASSIVE OK. Brother(s) Family Medical History: Coronary Artery Disease (CAD), Myocardial Infarction (OK) Additional Family Medical History / Comment(s): Pt had a 42 yrs old brother of a massive OK and another brother who had CABG at the age of 39yrs. Sister(s) Family Medical History: Cancer Medications and Allergies Home Medications Medication Instructions Recorded Confirmed Type Multivitamins, Thera [Multivitamin 1 tab PO DAILY 10/12/16 01/24/24 History (formulary)] Gabapentin [Neurontin] 300 mg PO Q8H 02/18/20 01/24/24 History metFORMIN HCL 500 mg PO DAILY 02/18/20 01/24/24 History Levothyroxine Sodium [Synthroid] 88 mcg PO DAILY 11/26/20 01/24/24 History Nitroglycerin Sl Tabs [Nitrostat] 0.4 mg SUBLINGUAL Q5M PRN 90 Days 01/10/21 01/24/24 Rx #90 tab Apixaban [Eliquis] 5 mg PO BID #60 tab 01/15/21 01/24/24 Rx Aspirin 81 mg PO DAILY chew 01/20/21 01/24/24 Rx Magnesium Oxide [Mag-Ox] 400 mg PO DAILY 30 Days #30 tab 01/20/21 01/24/24 Rx Atorvastatin [Lipitor] 40 mg PO HS 07/16/23 01/24/24 History Furosemide [Lasix] 40 mg PO DAILY 07/16/23 01/24/24 History Metoprolol Tartrate [Lopressor] 100 mg PO BID 07/16/23 01/24/24 History Omeprazole 40 mg PO BID 07/16/23 01/24/24 History Potassium Chloride ER [K-Dur 20] 20 meq PO DAILY 07/16/23 01/24/24 History Zinc Gluconate [Zinc] 50 mg PO DAILY 07/16/23 01/24/24 History Budesonide [Pulmicort] 0.5 mg INHALATION RT-BID 30 Days 07/18/23 01/24/24 Rx #60 ml Ipratropium-Albuterol Nebulize 3 ml INHALATION RT-QID 30 Days 07/18/23 01/24/24 Rx [Duoneb 0.5 mg-3 mg/3 ml Soln] #120 each Losartan [Cozaar] 50 mg PO DAILY 90 Days #90 tab 07/18/23 01/24/24 Rx Isosorbide Mononitrate ER [Imdur] 30 mg PO DAILY 01/24/24 01/24/24 History Tirzepatide [Mounjaro] 2.5 mg SQ TU 01/24/24 01/24/24 History amLODIPine [Norvasc] 5 mg PO DAILY 01/24/24 01/24/24 History Allergies Allergy/AdvReac Type Severity Reaction Status Date / Time No Known Allergies Allergy Verified 01/24/24 13:55 Physical Exam Vitals: Vital Signs Temp Pulse Pulse Resp BP BP Pulse Ox 01/25/24 08:01 98 01/25/24 07:50 83 93 L 01/25/24 07:05 97.9 F 77 17 114/76 99 01/25/24 02:00 97.8 F 88 16 142/69 96 01/24/24 22:06 96 01/24/24 22:05 88 01/24/24 21:53 88 01/24/24 21:00 72 01/24/24 20:42 97.7 F 72 16 138/75 96 01/24/24 18:25 97.8 F 93 18 119/83 95 01/24/24 15:54 97.9 F 115 H 18 134/87 96 01/24/24 13:50 97.6 F 129 H 22 170/89 96 FiO2 01/25/24 08:01 01/25/24 07:50 01/25/24 07:05 01/25/24 02:00 01/24/24 22:06 21 01/24/24 22:05 01/24/24 21:53 01/24/24 21:00 01/24/24 20:42 01/24/24 18:25 01/24/24 15:54 01/24/24 13:50 Intake and Output 01/24/24 01/25/24 01/25/24 22:59 06:59 14:59 Other: Voiding Method Toilet # Voids 1 2 Weight 115.666 kg Results 01/24/24 14:19 01/24/24 14:19 Cardiac Enzymes 01/24/24 01/24/24 01/24/24 Range/Units 14:19 14:19 18:05 AST 26 (14-36) U/L Troponin I <0.012 <0.012 (0.000-0.034) ng/mL 01/24/24 Range/Units 20:12 AST (14-36) U/L Troponin I <0.012 (0.000-0.034) ng/mL Coagulation 01/24/24 Range/Units 14:19 PT 10.3 (10.0-12.5) sec APTT 25.3 (22.0-30.0) sec CBC 01/24/24 Range/Units 14:19 WBC 11.0 H (3.8-10.6) k/uL RBC 4.98 (3.80-5.40) m/uL Hgb 13.7 (11.4-16.0) gm/dL Hct 43.7 (34.0-46.0) % Plt Count 307 (150-450) k/uL Comprehensive Metabolic Panel 01/24/24 Range/Units 14:19 Sodium 145 (137-145) mmol/L Potassium 3.9 (3.5-5.1) mmol/L Chloride 108 H (98-107) mmol/L Carbon Dioxide 22 (22-30) mmol/L BUN 12 (7-17) mg/dL Creatinine 0.72 (0.52-1.04) mg/dL Glucose 149 H (74-99) mg/dL Calcium 9.1 (8.4-10.2) mg/dL AST 26 (14-36) U/L ALT 28 (4-34) U/L Alkaline Phosphatase 188 H (38-126) U/L Total Protein 7.1 (6.3-8.2) g/dL Albumin 4.1 (3.5-5.0) g/dL Current Medications Generic Name Dose Route Start Last Admin Trade Name Freq PRN Reason Stop Dose Admin Acetaminophen 650 mg 01/24/24 23:15 Acetaminophen Tab 325 Mg Tab PO Q6HR PRN Fever and/ or Pain Albuterol/Ipratropium 3 ml 01/24/24 20:00 01/25/24 07:47 Ipratropium-Albuterol 3 Ml Neb INHALATION 3 ml RT-QID [facility]A Administration Amlodipine Besylate 5 mg 01/25/24 09:00 Amlodipine 5 Mg Tab PO DAILY [facility] Apixaban 5 mg 01/24/24 21:00 01/24/24 21:23 Apixaban 5 Mg Tab PO 5 mg BID [facility]A Administration Protocol Aspirin 325 mg 01/25/24 09:00 Aspirin 325 Mg Tab PO DAILY [facility] Atorvastatin Calcium 40 mg 01/24/24 21:00 01/24/24 21:23 Atorvastatin 40 Mg Tab PO 40 mg HS [facility]A Administration Budesonide 0.5 mg 01/24/24 20:00 01/25/24 07:47 Budesonide 0.5 Mg/2 Ml Nebu INHALATION 0.5 mg RT-BID [facility]A Administration Furosemide 40 mg 01/25/24 09:00 Furosemide 40 Mg Tab PO DAILY [facility] Gabapentin 300 mg 01/25/24 00:00 01/24/24 23:22 Gabapentin 300 Mg Cap PO 300 mg Q8HR [facility] Administration Isosorbide Mononitrate 30 mg 01/25/24 12:00 Isosorbide Mononitrate Er 30 Mg Tab.Er.24h PO DAILY [facility] Levothyroxine Sodium 88 mcg 01/25/24 06:30 01/25/24 06:11 Levothyroxine 88 Mcg Tab PO 88 mcg 0630 [facility] Administration Losartan Potassium 50 mg 01/25/24 09:00 Losartan 50 Mg Tab PO DAILY [facility] Magnesium Oxide 400 mg 01/25/24 09:00 Magnesium Oxide 400 Mg Tab PO DAILY [facility] Metoprolol Tartrate 100 mg 01/24/24 21:00 01/24/24 21:23 Metoprolol Tartrate 50 Mg Tab PO 100 mg BID [facility] Administration Multivitamins 1 each 01/25/24 09:00 Multivitamins, Thera 1 Each Tab PO DAILY [facility] Nitroglycerin 0.4 mg 01/24/24 19:15 Nitroglycerin Sl Tabs 0.4 Mg Tab SUBLINGUAL Q5M PRN Chest Pain Non-Formulary Medication 2.5 mg 01/30/24 09:00 Tirzepatide [Mounjaro] SQ TU [facility] Pantoprazole Sodium 40 mg 01/24/24 21:00 01/24/24 21:23 Pantoprazole 40 Mg Tablet PO 40 mg BID [facility] Administration Potassium Chloride 20 meq 01/25/24 09:00 Potassium Chloride Er 20 Meq Tab.Er PO DAILY [facility] Zinc Sulfate 220 mg 01/25/24 09:00 Zinc Sulfate 220 Mg Cap PO DAILY [facility] Intake and Output 01/24/24 01/25/24 01/25/24 22:59 06:59 14:59 Other: Voiding Method Toilet # Voids 1 2 Weight 115.666 kg 01/24/24 14:19 01/24/24 14:19
[2024-01-25 11:55] LABS: Chol/HDL Ratio 3.17 Ratio; LDL Cholesterol,Calculated 67.3 mg/dL (0.0-131.0)
[2024-01-25] MEDS: ISOSORBIDE MONONITRATE ER 30 MG TAB.ER.24H PO SCH (12:41)
[2024-01-25] MEDS: DEXTROSE 5% IN WATER 100 ML with AMIODARONE 150 MG IV ONE (14:57)
[2024-01-25] MEDS: AMIODARONE 360 MG in DEXTROSE 5% IN WATER 200 ML IV ONE (15:10)
[2024-01-25] MEDS: AMIODARONE 450 MG in DEXTROSE 5% IN WATER 250 ML IV SCH (21:53)
--- NOTE | 2024-01-26 08:00 | CT ---
EXAMINATION TYPE: CT chest wo con CT DLP: 747.8 mGycm, Automated exposure control for dose reduction was used. DATE OF EXAM: 01/24/2024 7:51 PM COMPARISON: Chest radiograph from same day. Multiple CTs of the chest with most recent on . CLINICAL INDICATION:Female, 73 years old with history of chest tightness; PHH, A-fib TECHNIQUE: Multiple axial images were obtained through the chest. Sagittal and coronal reformats were created for review. Contrast used: mL of (None if empty) Oral contrast used: (None if empty) FINDINGS: LUNGS/ PLEURA: The lung parenchyma appears unremarkable. AIRWAY: Patent and unremarkable. HEART: Size within normal limits. Moderately severe calcific coronary artery atherosclerosis. MEDIASTINUM: No gross evidence of adenopathy. VASCULATURE: No aortic aneurysm. MUSCULOSKELETAL: No acute osseous abnormalities SOFT TISSUES/LYMPH NODES: Unremarkable. LOWER NECK: No significant findings. UPPER ABDOMEN: No significant findings. IMPRESSION: Coronary artery disease. No CT evidence of acute process. Follow up recommendations for incidental pulmonary nodules, if there are any, are per [employer] or [employer]. https://radiopaedia.org/articles/[email or web address]?lang=us
--- NOTE | 2024-01-26 08:32 | CT ---
EXAMINATION TYPE: CT angio chest CT DLP: 784 mGycm, Automated exposure control for dose reduction was used. DATE OF EXAM: 01/25/2024 7:05 PM COMPARISON: . Multiple CTs of the chest with most recent on . The [facility] CLINICAL INDICATION:Female, 73 years old with history of elevated d-dimer; Elevated D-dimer. TECHNIQUE/CONTRAST: CTA scan of the thorax is performed with IV Contrast, patient injected with 100 ml mL of Isovue 370, MIP images are created and reviewed these are created on a separate workstation.. FINDINGS: Pulmonary Artery: There is no evidence for a filling defect within the pulmonary vasculature to sugge st acute pulmonary embolism. The pulmonary artery is of normal size. Lungs/Pleura: No evidence of worrisome focal consolidation, pleural effusion or pneumothorax. Small amount of dependent atelectasis in the posterior right lower lobe Airway: Large airways are patent. Heart: Heart is within normal limits for size. Moderately pronounced coronary artery disease. Vasculature: No evidence of aortic aneurysm. Mediastinum: No gross evidence of adenopathy. Musculoskeletal: No acute osseous abnormalities Soft Tissues: Unremarkable. Lower neck: No significant findings. Upper Abdomen: No significant findings. IMPRESSION: 1. No evidence of pulmonary embolism. 2. Peripheral groundglass pulmonary opacities consistent with atelectasis. 3. Coronary Artery disease
--- NOTE | 2024-01-26 09:27 | CA ---
Transthoracic Echo Report Name: Thelma Mohan Age: 73 Gender: F : 1950 Exam Date: 01/25/2024 09:20 Exam Location: [facility] Ht (in): 63 Wt (lb): 255 Ordering Physician: Nakul Aburto MD Attending/Referring Phys: [employer] Safety And Health Specialist Pablito Fang RDCS Procedure CPT: Indications: bubble study Cardiac Hx: Technical Quality: Very technically difficult study Contrast 1: Definity Total Dose (mL): 3 Contrast 2: Total Dose (mL): MEASUREMENTS (Male / Female) Normal Values 2D ECHO LV Diastolic Diameter PLAX 3.8 cm 4.2 - 5.9 / 3.9 - 5.3 cm LV Systolic Diameter PLAX 2.6 cm IVS Diastolic Thickness 1.2 cm 0.6 - 1.0 / 0.6 - 0.9 cm LVPW Diastolic Thickness 1.0 cm 0.6 - 1.0 / 0.6 - 0.9 cm LV Relative Wall Thickness 0.6 LVOT Diameter 2.2 cm Aortic Root Diameter 3.5 cm LA Systolic Diameter LX 3.5 cm 3.0 - 4.0 / 2.7 - 3.8 cm FINDINGS Left Ventricle Left ventricular ejection fraction is estimated at 50-55 %. Right Ventricle Right Atrium Left Atrium Mitral Valve Aortic Valve Tricuspid Valve Pulmonic Valve Pericardium Aorta CONCLUSIONS Limited study, previous echo recorded on 07/16/2023. Unable to complete bubble study due to suboptimal images, poor acoustic windows. LVEF at 55% Previewed by: Dr Rene Velazquez (Electronically Signed) Final Date: 26 January 2024 09:26
[2024-01-26] MEDS: METOPROLOL TARTRATE 50 MG TAB PO SCH (09:54)
[2024-01-26] MEDS: AMIODARONE 200 MG TAB PO SCH (09:55)
--- NOTE | 2024-01-26 11:12 | P.PN ---
Subjective Progress Note Date: 01/26/24 HISTORY OF PRESENT ILLNESS: This is a 73-year-old female with a past medical history significant for cor onary artery disease with previous PCI, paroxysmal atrial fibrillation, recurrent TIA, PFO closure, hypertension, hyperlipidemia, diabetes, and morbid obesity. Patient follows in the office with Dr. Zepeda. We have been asked to see the patient in consultation for chest pain. Patient examined at the bedside. Patient states yesterday she began to have palpitations. She also reports having chest pain. She states the pain went into her back and also into her left arm. She felt like her throat was swelling and had a dry mouth. She also noticed that her heart rate was high. She states that her symptoms felt to be worse when her heart rate was high. She also reports that she took her blood p ressure at home and it was elevated. Patient presented to the ER for further evaluation. Patient was found to be in A-fib with mild RVR. Patient was just seen in the office by Dr. Zepeda on 01/09/2024 and was in sinus mechanism at that time. DIAGNOSTICS: - EKG reveals atrial fibrillation with mild RVR. - Chest xray negative for acute process - Laboratory data: WBC 11.0. Hemoglobin 13.7. Platelet count 307. Sodium 145. Sodium 3.9. BUN 12. Creatinine 0.72. Troponin negative x 3. proBNP 1380. TSH 1.920. Free T42.7. - Current home cardiac medications include Eliquis 5 mg twice a day, aspirin 81 mg daily, Imdur 30 mg daily, losartan 50 mg daily, amlodipine 5 mg daily, Lasix 40 mg daily, metoprolol tartrate 100 mg twice a day, and Lipitor 40 mg at night. - Most recent echocardiogram obtained in June 2023 revealed ejection fraction 55 to 60%, mild pulmonary hypertension, PFO closure device noted, mild TR - Cardiac catheterization history: December 2020 revealing patent stent within the right coronary artery and mild nonobstructive disease in the LAD and circumflex coronary artery 01/25 Patient is seen today on the cardiac stepdown unit. She remains in atrial fibrillation running about 104 bpm. She was started on amiodarone drip yesterday afternoon. Blood pressure 101/60. CTA of the chest was negative for pulmonary embolism. Atelectasis and CAD. No new concerns from the patient. No palpitations no chest pain. Limited echocardiogram reveals EF of 55%. PHYSICAL EXAM: VITAL SIGNS: Reviewed. GENERAL: Well-developed in no acute distress. HEENT: Head is normocephalic. Pupils are equal, round. Sclerae anicteric. Mucous membranes of the mouth are moist. Neck supple. No JVD or thyromegaly LUNGS: Respirations even and unlabored. Lungs essentially clear to auscultation bilaterally. HEART: Irregular rate and rhythm. S1 and S2 heard. ABDOMEN: Soft. Nondistended. Nontender. EXTREMITIES: Normal range of motion. No clubbing or cyanosis. Peripheral pulses intact. No lower extremity edema NEUROLOGIC: Awake and alert. Oriented x 3. ASSESSMENT: Palpitations Chest pain, troponin negative x 3, suspect secondary to atrial fibrillation Paroxysmal atrial fibrillation with mild RVR, symptomatic Coronary artery disease with previous stenting of the RCA, 2018 Mild nonobstructive disease of the LAD and circumflex coronary artery History of recurrent TIA History of PFO closure device Hypertension Hyperlipidemia Diabetes Morbid obesity: BMI 45.2 History of loop recorder implantation and subsequent explantation PLAN: Continue home cardiac medications Continue anticoagulation with Eliquis Discontinue IV amiodarone and place patient on amiodarone 200 mg twice daily Patient is cleared for discharge from cardiology and will plan to continue amiodarone with electrocardioversion scheduled as an outpatient. Patient to follow-up with Dr. Fco Zepeda in 1 to 2 weeks. Nurse practitioner note has been reviewed by physician. Signing provider agrees with the documented findings, assessment, and plan of care documented by AUTO TIRE RECAPPER as a scribe. Objective - Vital Signs Vital signs: Vital Signs Temp 98.3 F 01/26/24 03:13 Pulse 104 H 01/26/24 03:13 Resp 18 01/26/24 03:13 BP 101/60 01/26/24 03:13 Pulse Ox 93 L 01/26/24 03:13 FiO2 21 01/24/24 22:06 Intake & Output 01/25/24 01/26/24 01/26/24 18:59 06:59 18:59 Weight 118 kg Other: Voiding Method Toilet Toilet - Labs CBC & Chem 7: 01/24/24 14:19 01/24/24 14:19 Labs: Abnormal Lab Results - Last 24 Hours (Table) 03/28/24 03/28/24 Range/Units 06:01 09:51 POC Glucose (mg/dL) 146 H (70-110) mg/dL Triglycerides 153.00 H (0.00-149.00) mg/dL
[2024-01-26 12:16] VITALS: BP 121/57; PULSE 88; TEMP 97.5
[2024-01-26 14:43] VITALS: RESP 18
[2024-01-30] MEDS ORDERED: NON FORMULARY DRUG (Tirzepatide [Mounjaro] 2.5 MG/0.5 ML Pen.Injctr) SQ SCH (09:00)
== END 2024-01-26 15:19 | disposition home or self-care (01) | DRG 309 ==
LOC: EC 13:34 → 6NMEDSUR 17:34 → 3SCARD 01-25 14:27 → OBSVTOIN 01-26 07:44
PROVIDERS: ADMIT Family Medicine; ATTEND Family Medicine
DX: I48.0 Paroxysmal atrial fibrillation (principal); I25.110 Atherosclerotic heart disease of native coronary artery with unstable angina pectoris; Z68.42 Body mass index [BMI] 45.0-49.9, adult; Z86.73 Personal history of transient ischemic attack (TIA), and cerebral infarction without residual deficits; Z87.74 Personal history of (corrected) congenital malformations of heart and circulatory system; I10 Essential (primary) hypertension; E66.01 Morbid (severe) obesity due to excess calories; E78.5 Hyperlipidemia, unspecified; I25.2 Old myocardial infarction; I27.20 Pulmonary hypertension, unspecified; I48.92 Unspecified atrial flutter; K21.9 Gastro-esophageal reflux disease without esophagitis; M06.9 Rheumatoid arthritis, unspecified; Z79.82 Long term (current) use of aspirin; Z79.84 Long term (current) use of oral hypoglycemic drugs; Z79.890 Hormone replacement therapy; Z79.899 Other long term (current) drug therapy; Z82.49 Family history of ischemic heart disease and other diseases of the circulatory system; Z87.442 Personal history of urinary calculi; Z90.710 Acquired absence of both cervix and uterus; Z98.61 Coronary angioplasty status
CPT/HCPCS: 36415; 71046; 71250; 71275; 80053; 80061; 83735; 83880; 84145; 84436; 84443; 84481; 84484; 85025; 85379; 85610; 85730; 93005; 93308; 94640; 94760; 99285

== ENCOUNTER → 2024-04-24 | Outpatient (CLI) | payer MEDICARE ==
[2024-04-24 14:30] VITALS: BP 148/69; PULSE 62; RESP 16; TEMP 97.5
--- NOTE | 2024-04-24 16:33 | P.SLEEP ---
History of Present Illness DATE: 04/24/2024 CONSULTATION/NEW PATIENT EVALUATION HISTORY OF PRESENT ILLNESS/SLEEP-WAKE EVALUATION: 73-year-old lady had been e valuated in the sleep center for obstructive sleep apnea hypopnea syndrome. Patient has history of obstructive sleep apnea diagnosed in our institution in 2017. Apnea hypopnea index at that time was 35.7 with oxygen desaturation to 77%. Since that time patient continued to use your CPAP equipment every night. I checked CPAP unit. CPAP pressure is 10 cm of water, usage is 100% of nights. Average usage is 8.2 hours per night. Leak is 16 L/min which is acceptable. Apnea hypopnea index is 0.7 which is normal. SLEEP SCHEDULE: Usually sleep schedule from midnight until 7:30 AM 7 days a . FALLING ASLEEP: Sometimes patient has difficulties with falling asleep, but no TV in bedroom. DURING SLEEP: No snoring with CPAP. Patient may wake up up to times to go to the bathroom. No history of hypnogogical hallucinations, sleep paralysis, or cataplexy. DURING THE DAY/WAKE STATE: No sleepiness during the day. [place] sleepiness scale is 2. Patient does not take naps. PAST MEDICAL HISTORY: Hypertension, hyperlipidemia, nephrolithiasis, acid reflux, coronary artery disease. PAST SURGICAL HISTORY: Hysterectomy, stent insertion to coronary arteries, cholecystectomy. MEDICATIONS: Please see below. SOCIAL HISTORY: Please see below. FAMILY HISTORY: Please see below. REVIEW OF SYSTEMS: No snoring on CPAP. No fevers. No double vision. No recent chest pain. No shortness of breath. No abdominal pain. No bleeding episodes. No blood in urine. No seizure episodes. PHYSICAL EXAMINATION: GENERAL: A pleasant patient without any distress. VITAL SIGNS: Please see below, weight 262.8 pounds, BMI 46.4. HEENT: PERRLA, EOMI. Evaluation of oropharynx showed tongue protrudes midline, low position of soft palate Mallampati 4. NECK: Supple. No JVD. Thyroid is not palpable. 17.5 inches in circumference. LUNGS: Clear to percussion and to auscultation. Good air exchange. No wheezing or rhonchi. HEART: S1, S2 regular. No murmurs, gallops or rubs. ABDOMEN: Soft and nontender. Bowel sounds are present. No organomegaly appreciated. EXTREMITIES: No clubbing or cyanosis. MUSIC ASSISTANT: Awake, alert, and oriented x3. Cranial nerves 2 to 7 intact. There is no fasciculation or atrophy noted. No focal deficits observed. ASSESSMENT: 1. Obstructive sleep apnea hypopnea syndrome in severe range, diagnosed in 2017 in our institution. Patient continued to use CPAP equipment every night for the whole night. No snoring. Normal respiration on CPAP. Extremely low position of soft palate Mallampati 4, wide neck. Obstructive sleep apnea hypopnea syndrome. 2. Obesity, BMI 46.4. 3. Hypertension. 4. Coronary artery disease status post stent insertion in 2018. 5 hyperlipidemia. 6 . Diabetes mellitus. 7. Nephrolithiasis. 8. Hypothyroidism. 9 . Acid reflux. 10. Status post cholecystectomy. 11. Status post hysterectomy. PLAN: 1. Patient will continue to use CPAP equipment every night for the whole night. 2. Prescription for all necessary CPAP supplies including nasal pillow mask, filters, heated tubing. 3. Preferable position during sleep on the side. 4. No driving if patient feels any sleepiness. Patient is aware of civil and criminal liability for unsafe driving. 5. Sleep hygiene with regular sleep time for at least 7.5-8 hours. 6. Watching and losing weight. 7. Follow-up visit in 6 months or earlier if patient has any problems. Thank you very much for referring this patient for consultation. Sincerely, Eliseo Watters MD, PhD, FAASM. Diplomat of [place] [employer], Sleep Medicine Board by [place] [employer] [place] [employer] [facility] Past Medical History Past Medical History: Atrial Fibrillation, Diabetes Mellitus, GERD/Reflux, Hyperlipidemia, Hypertension, Myocardial Infarction (DE), Osteoarthritis (OA), Rheumatoid Arthritis (RA), Sleep Apnea/CPAP/BIPAP, Thyroid Disorder Additional Past Medical History / Comment(s): HX Kidney Stones. DIVERTICULITIS, NARROWING OF SPINE W/ DISC PROB. USES C-PAP, RESTLESS LEGS, HOLE IN THE HEART - SURGICALLY REPAIRED (01/08/21 #[id number]/MODEL # [id number]) (ALSO HAS A CARD FOR ANTIPLATELET /STENT IMPLANT XIENCE ALPINE, 3.5 MM X 18 MM, LOT [id number], rEF [id number]) Last Myocardial Infarction Date:: 06/28/18 History of Any Multi-Drug Resistant Organisms: None Reported Past Surgical History: Cholecystectomy, Heart Catheterization With Stent, Hysterectomy Additional Past Surgical History / Comment(s): Lithotripsy, basket retrieval of kidney stones, COLONOSCOPY, PFO closure & loop recorder removal 01/08 Past Anesthesia/Blood Transfusion Reactions: No Reported Reaction Additional Past Anesthesia/Blood Transfusion Reaction / Comment(s): BLOOD TRANSUFSION WHEN HAVING HER CHILDREN-NO REACTIONS TO BLOOD. Date of Last Stent Placement:: 06/28/18 Past Psychological History: No Psychological Hx Reported Additional Psychological History / Comment(s): Pt resides with her spouse. She is independent. Smoking Status: Former smoker Past Alcohol Use History: None Reported Additional Past Alcohol Use History / Comment(s): STARTED SMOKING AT AGE 18 AND QUIT AT AGE 25 (LITE SMOKER) Past Drug Use History: None Reported - Past Family History Mother Family Medical History: Cancer Additional Family Medical History / Comment(s): HAD LYMPHOMA THEN 15 YEARS LATER HAD SMALL CELL CA(TOMACH) (SISTER ALSO HAD SMALL CELL CA Father Family Medical History: Myocardial Infarction (DE) Additional Family Medical History / Comment(s): PT WAS 9 YEARS OLD WHEN HER FATHER FROM MASSIVE DE. Brother(s) Family Medical History: Coronary Artery Disease (CAD), Myocardial Infarction (DE) Additional Family Medical History / Comment(s): Pt had a 42 yrs old brother of a massive DE and another brother who had CABG at the age of 39yrs. ALSO, BROTHER WITH WITH COLON, LATER LIVER CA. Sister(s) Family Medical History: Cancer Additional Family Medical History / Comment(s): Also, a brother that passed from massive DE age 42. Medications and Allergies Home Medications Medication Instructions Recorded Confirmed Type Multivitamins, Thera [Multivitamin 1 tab PO DAILY 10/12/16 04/24/24 History (formulary)] Gabapentin [Neurontin] 300 mg PO Q8H 02/18/20 04/24/24 History metFORMIN HCL 500 mg PO DAILY 02/18/20 04/24/24 History Levothyroxine Sodium [Synthroid] 88 mcg PO DAILY 11/26/20 04/24/24 History Nitroglycerin Sl Tabs [Nitrostat] 0.4 mg SUBLINGUAL Q5M PRN 90 Days 01/10/21 04/24/24 Rx #90 tab Apixaban [Eliquis] 5 mg PO BID #60 tab 01/15/21 04/24/24 Rx Aspirin 81 mg PO DAILY chew 01/20/21 04/24/24 Rx Magnesium Oxide [Mag-Ox] 400 mg PO DAILY 30 Days #30 tab 01/20/21 04/24/24 Rx Atorvastatin [Lipitor] 40 mg PO HS 07/16/23 04/24/24 History Furosemide [Lasix] 40 mg PO DAILY 07/16/23 04/24/24 History Omeprazole 40 mg PO BID 07/16/23 04/24/24 History Potassium Chloride ER [K-Dur 20] 20 meq PO DAILY 07/16/23 04/24/24 History Zinc Gluconate [Zinc] 50 mg PO DAILY 07/16/23 04/24/24 History Budesonide [Pulmicort] 0.5 mg INHALATION RT-BID 30 Days 07/18/23 04/24/24 Rx #60 ml Ipratropium-Albuterol Nebulize 3 ml INHALATION RT-QID 30 Days 07/18/23 04/24/24 Rx [Duoneb 0.5 mg-3 mg/3 ml Soln] #120 each Losartan [Cozaar] 50 mg PO DAILY 90 Days #90 tab 07/18/23 04/24/24 Rx Isosorbide Mononitrate ER [Imdur] 30 mg PO DAILY 01/24/24 04/24/24 History Tirzepatide [Mounjaro] 2.5 mg SQ TU 01/24/24 01/24/24 History amLODIPine [Norvasc] 5 mg PO DAILY 01/24/24 04/24/24 History Amiodarone [Cordarone] 200 mg PO BID 30 Days #60 tab 01/26/24 Rx Metoprolol Tartrate [Lopressor] 75 mg PO BID 30 Days #60 tab 01/26/24 04/24/24 Rx Allergies Allergy/AdvReac Type Severity Reaction Status Date / Time No Known Allergies Allergy Verified 01/24/24 13:55 Physical Exam Vitals: Vital Signs Temp Pulse Resp BP Pulse Ox 04/24/24 14:29 97.5 F L 62 16 148/69 95 Intake and Output 04/24/24 04/24/24 04/24/24 06:59 14:59 22:59 Other: Weight 119.068 kg Sleep Note - Sleep Data ESS Total: 2 - Sleep Note Sleep Note: Temperature: 97.5 F Pulse Rate: 62 Respiratory Rate: 16 Blood Pressure: 148/69 SpO2: 95 Height: 5 ft 3 in Weight: 119.068 kg BMI: Neck Circumference: 17.5
== END ==
LOC: 3 N SLEEP 13:31
PROVIDERS: ATTEND Internal Medicine
DX: G47.33 Obstructive sleep apnea (adult) (pediatric) (principal); E66.9 Obesity, unspecified; I10 Essential (primary) hypertension; I25.10 Atherosclerotic heart disease of native coronary artery without angina pectoris; E78.5 Hyperlipidemia, unspecified; E11.9 Type 2 diabetes mellitus without complications; E03.9 Hypothyroidism, unspecified; K21.9 Gastro-esophageal reflux disease without esophagitis; N20.0 Calculus of kidney; Z90.49 Acquired absence of other specified parts of digestive tract; Z90.710 Acquired absence of both cervix and uterus; Z95.5 Presence of coronary angioplasty implant and graft; Z68.42 Body mass index [BMI] 45.0-49.9, adult; Z79.01 Long term (current) use of anticoagulants; Z79.84 Long term (current) use of oral hypoglycemic drugs; Z79.899 Other long term (current) drug therapy; Z87.891 Personal history of nicotine dependence; Z79.890 Hormone replacement therapy; Z99.89 Dependence on other enabling machines and devices
CPT/HCPCS: 99211

== ENCOUNTER → 2024-10-24 | Outpatient (CLI) | payer MEDICARE ==
[2024-10-24 11:32] VITALS: BP 148/79; PULSE 63; RESP 16; TEMP 97.6
--- NOTE | 2024-10-24 12:06 | P.PROGSL ---
Subjective DATE: 10/24/2024 FOLLOW UP VISIT. Patient with obstructive sleep apnea hypopnea syndrome return to sleep center for follow-up visit. Information from previous visit have been reviewed. Patient is using PAP equipment every night for the whole night, getting PAP supplies in time. The patient does not have significant problems with the mask, and humidification. PAP unit is noisy .[place] sleepiness scale is 8, which is normal. I checked information from PAP unit. Motor life expectancy was exceeded. CPAP unit is noisy. PAP unit pressure 10 cm H2O. Usage is 100% for more then 4 hours, average 8.1 hours per night. Leak is 10 l/m, which is in acceptable range. Apnea Hypopnea Index is 0.7, which is normal. MEDICATIONS have been reviewed, please see below. During physical exam: GENERAL: A pleasant patient without any distress. VITAL SIGNS: Please see below, weight is 250 lbs. HEENT: PERRLA, EOMI.low position of soft palate, Mallapati 4 . NECK: Supple. No JVD. LUNGS: Clear to percussion and to auscultation. Good air exchange. No wheezing or rhonchi. HEART: S1, S2 regular. ABDOMEN: Soft and nontender. Obese EXTREMITIES: No clubbing or cyanosis. TRANSIT DRIVER: Awake, alert, and oriented x3. No focal deficit. Impressions: 1. Obstructive sleep apnea-hypopnea syndrome. Patient demonstrated great compli ance with treatment, benefiting from treatment. 2. Obesity, BMI 44.1, patient lost 12 pounds comparing with the previous visit. 3. Hypertension. 4. Coronary artery disease, status post stent insertion 2017. 5. Diabetes mellitus. 6. Hyperlipidemia. 7. Nephrolithiasis. 8. Hypothyroidism. 9. Acid reflux. 10. Status post hysterectomy. 11. Status post cholecystectomy. Plan: 1. Continue using PAP equipment every night for the whole night. Prescription to replace CPAP unit, motor life expectancy was exceeded, CPAP unit is noisy. 2. Sleep hygiene with regular time in bed for at least 7.5-8 hours 3. PAP unit should stay lower then position of the head. 4. Advised patient to remove all remaining water from humidifier canister daily and make it dry after each usage. Refill canister with fresh distilled water before each usage. 5. Watching weight. 6. Precautions related to driving. No driving if feel any sleepiness. 7. I will maintain prescription for PAP supplies including mask, tube, filters. 8. Follow up visit in 1-3 months after patient will get new CPAP unit to check compliance with treatment and evaluate clinical response on treatment.. Thank you very much for allowing me to participate in the management of your patient. Eliseo Watters MD, PhD, FAASM. Diplomat of [place] [employer], Sleep Medicine Board by [place] [employer] [facility] Objective - Vital Signs Vital Signs: Vital Signs Temp 97.6 F 10/24/24 11:31 Pulse 63 10/24/24 11:31 Resp 16 10/24/24 11:31 BP 148/79 10/24/24 11:31 Pulse Ox 95 10/24/24 11:31 FiO2 Intake & Output 10/23/24 10/24/24 10/24/24 18:59 06:59 18:59 Weight 113.398 kg Home Medications: Home Medications Medication Instructions Recorded Confirmed Type Multivitamins, Thera [Multivitamin 1 tab PO DAILY 10/12/16 04/24/24 History (formulary)] Gabapentin [Neurontin] 300 mg PO Q8H 02/18/20 04/24/24 History metFORMIN HCL 500 mg PO DAILY 02/18/20 04/24/24 History Levothyroxine Sodium [Synthroid] 88 mcg PO DAILY 11/26/20 04/24/24 History Nitroglycerin Sl Tabs [Nitrostat] 0.4 mg SUBLINGUAL Q5M PRN 90 Days 01/10/21 04/24/24 Rx #90 tab Apixaban [Eliquis] 5 mg PO BID #60 tab 01/15/21 04/24/24 Rx Aspirin 81 mg PO DAILY chew 01/20/21 04/24/24 Rx Magnesium Oxide [Mag-Ox] 400 mg PO DAILY 30 Days #30 tab 01/20/21 04/24/24 Rx Atorvastatin [Lipitor] 40 mg PO HS 07/16/23 04/24/24 History Furosemide [Lasix] 40 mg PO DAILY 07/16/23 04/24/24 History Omeprazole 40 mg PO BID 07/16/23 04/24/24 History Potassium Chloride ER [K-Dur 20] 20 meq PO DAILY 07/16/23 04/24/24 History Zinc Gluconate [Zinc] 50 mg PO DAILY 07/16/23 04/24/24 History Budesonide [Pulmicort] 0.5 mg INHALATION RT-BID 30 Days 07/18/23 04/24/24 Rx #60 ml Ipratropium-Albuterol Nebulize 3 ml INHALATION RT-QID 30 Days 07/18/23 04/24/24 Rx [Duoneb 0.5 mg-3 mg/3 ml Soln] #120 each Losartan [Cozaar] 50 mg PO DAILY 90 Days #90 tab 07/18/23 04/24/24 Rx Isosorbide Mononitrate ER [Imdur] 30 mg PO DAILY 01/24/24 04/24/24 History Tirzepatide [Mounjaro] 2.5 mg SQ TU 01/24/24 01/24/24 History amLODIPine [Norvasc] 5 mg PO DAILY 01/24/24 04/24/24 History Amiodarone [Cordarone] 200 mg PO BID 30 Days #60 tab 01/26/24 Rx Metoprolol Tartrate [Lopressor] 75 mg PO BID 30 Days #60 tab 01/26/24 04/24/24 Rx
== END ==
LOC: 3 N SLEEP 10:48
PROVIDERS: ATTEND Internal Medicine
DX: G47.33 Obstructive sleep apnea (adult) (pediatric) (principal); E66.9 Obesity, unspecified; I10 Essential (primary) hypertension; I25.10 Atherosclerotic heart disease of native coronary artery without angina pectoris; E11.9 Type 2 diabetes mellitus without complications; E78.5 Hyperlipidemia, unspecified; E03.9 Hypothyroidism, unspecified; K21.9 Gastro-esophageal reflux disease without esophagitis; N20.0 Calculus of kidney; Z90.710 Acquired absence of both cervix and uterus; Z90.49 Acquired absence of other specified parts of digestive tract; Z99.89 Dependence on other enabling machines and devices; Z68.41 Body mass index [BMI] 40.0-44.9, adult; Z95.5 Presence of coronary angioplasty implant and graft; Z79.84 Long term (current) use of oral hypoglycemic drugs; Z79.899 Other long term (current) drug therapy; Z79.01 Long term (current) use of anticoagulants; Z79.890 Hormone replacement therapy; Z79.85 Long-term (current) use of injectable non-insulin antidiabetic drugs; Z87.891 Personal history of nicotine dependence
CPT/HCPCS: 99212

== ENCOUNTER 2024-11-29 08:31 | Emergency (ER) | payer MEDICARE ==
[2024-11-29 08:38] VITALS: RESP 18
--- NOTE | 2024-11-29 09:02 | ED ---
General Adult HPI - General Chief complaint: Neuro Symptoms/Deficit Stated complaint: L arm numbness,Weakness Time Seen by Provider: 11/29/24 08:37 Source: patient, RN notes reviewed, old records reviewed Mode of arrival: wheelchair Limitations: no limitations - History of Present Illness Initial comments: 74-year-old female presenting for evaluation of generalized weakness, bilateral upper and lower extremity numbness and tingling. Patient states she recently started Mounjaro. She states she has lost about 20 pounds. She states she generally does not feel well. She has had no abdominal pain, no vomiting. She has sensation of dry mouth and mild chest discomfort. She believes that her left arm feels slightly worse than her right arm. She denies limb weakness but this numbness and tingling sensation is in both arms worse on the left. Sym ptoms have been progressing over the past several weeks, worse over the past 3 days - Related Data Home Medications Medication Instructions Recorded Confirmed Multivitamins, Thera [Multivitamin 1 tab PO DAILY 10/12/16 04/24/24 (formulary)] Gabapentin [Neurontin] 300 mg PO Q8H 02/18/20 04/24/24 metFORMIN HCL 500 mg PO DAILY 02/18/20 04/24/24 Levothyroxine Sodium [Synthroid] 88 mcg PO DAILY 11/26/20 04/24/24 Atorvastatin [Lipitor] 40 mg PO HS 07/16/23 04/24/24 Furosemide [Lasix] 40 mg PO DAILY 07/16/23 04/24/24 Omeprazole 40 mg PO BID 07/16/23 04/24/24 Potassium Chloride ER [K-Dur 20] 20 meq PO DAILY 07/16/23 04/24/24 Zinc Gluconate [Zinc] 50 mg PO DAILY 07/16/23 04/24/24 Isosorbide Mononitrate ER [Imdur] 30 mg PO DAILY 01/24/24 04/24/24 Tirzepatide [Mounjaro] 2.5 mg SQ TU 01/24/24 01/24/24 amLODIPine [Norvasc] 5 mg PO DAILY 01/24/24 04/24/24 Previous Rx's Medication Instructions Recorded Nitroglycerin Sl Tabs [Nitrostat] 0.4 mg SUBLINGUAL Q5M PRN 90 Days 01/10/21 #90 tab Apixaban [Eliquis] 5 mg PO BID #60 tab 01/15/21 Aspirin 81 mg PO DAILY chew 01/20/21 Magnesium Oxide [Mag-Ox] 400 mg PO DAILY 30 Days #30 tab 01/20/21 Budesonide [Pulmicort] 0.5 mg INHALATION RT-BID 30 Days 07/18/23 #60 ml Ipratropium-Albuterol Nebulize 3 ml INHALATION RT-QID 30 Days 07/18/23 [Duoneb 0.5 mg-3 mg/3 ml Soln] #120 each Losartan [Cozaar] 50 mg PO DAILY 90 Days #90 tab 07/18/23 Amiodarone [Cordarone] 200 mg PO BID 30 Days #60 tab 01/26/24 Metoprolol Tartrate [Lopressor] 75 mg PO BID 30 Days #60 tab 01/26/24 Allergies Allergy/AdvReac Type Severity Reaction Status Date / Time No Known Allergies Allergy Verified 11/29/24 08:33 Review of Systems ROS Statement: Those systems with pertinent positive or pertinent negative responses have been documented in the HPI. ROS Other: All systems not noted in ROS Statement are negative. Past Medical History Past Medical History: Atrial Fibrillation, Diabetes Mellitus, GERD/Reflux, Hyper lipidemia, Hypertension, Myocardial Infarction (MN), Osteoarthritis (OA), Rheumatoid Arthritis (RA), Sleep Apnea/CPAP/BIPAP, Thyroid Disorder Additional Past Medical History / Comment(s): HX Kidney Stones. DIVERTICULITIS, NARROWING OF SPINE W/ DISC PROB. USES C-PAP, RESTLESS LEGS, HOLE IN THE HEART - SURGICALLY REPAIRED (01/08/21 #[id number]/MODEL # [id number]) (ALSO HAS A CARD FOR ANTIPLATELET /STENT IMPLANT XIENCE ALPINE, 3.5 MM X 18 MM, LOT [id number], rEF [id number]) Last Myocardial Infarction Date:: 06/28/18 History of Any Multi-Drug Resistant Organisms: None Reported Past Surgical History: Cholecystectomy, Heart Catheterization With Stent, Hysterectomy Additional Past Surgical History / Comment(s): Lithotripsy, basket retrieval of kidney stones, COLONOSCOPY, PFO closure & loop recorder removal 01/08 Past Anesthesia/Blood Transfusion Reactions: No Reported Reaction Additional Past Anesthesia/Blood Transfusion Reaction / Comment(s): BLOOD TRANSUFSION WHEN HAVING HER CHILDREN-NO REACTIONS TO BLOOD. Date of Last Stent Placement:: 06/28/18 Past Psychological History: No Psychological Hx Reported Smoking Status: Former smoker Past Alcohol Use History: None Reported Past Drug Use History: None Reported - Past Family History Mother Family Medical History: Cancer Additional Family Medical History / Comment(s): HAD LYMPHOMA THEN 15 YEARS LATER HAD SMALL CELL CA(TOMACH) (SISTER ALSO HAD SMALL CELL CA Father Family Medical History: Myocardial Infarction (MN) Additional Family Medical History / Comment(s): PT WAS 9 YEARS OLD WHEN HER FATHER FROM MASSIVE MN. Brother(s) Family Medical History: Coronary Artery Disease (CAD), Myocardial Infarction (MN) Additional Family Medical History / Comment(s): Pt had a 42 yrs old brother of a massive MN and another brother who had CABG at the age of 39yrs. ALSO, BROTHER WITH WITH COLON, LATER LIVER CA. Sister(s) Family Medical History: Cancer Additional Family Medical History / Comment(s): Also, a brother that passed from massive MN age 42. General Exam Limitations: no limitations General appearance: alert, in no apparent distress Head exam: Present: atraumatic, normocephalic Eye exam: Present: normal appearance, PERRL ENT exam: Present: mucous membranes dry Neck exam: Present: normal inspection. Absent: tenderness, meningismus Respiratory exam: Present: normal lung sounds bilaterally. Absent: respiratory distress, wheezes Cardiovascular Exam: Present: tachycardia, irregular rhythm GI/Abdominal exam: Present: soft. Absent: distended, tenderness, guarding Neurological exam: Present: alert, oriented X3, CN II-XII intact. Absent: motor sensory deficit Psychiatric exam: Present: normal affect, normal mood Skin exam: Present: warm, dry, intact. Absent: cyanosis, diaphoretic Course Vital Signs 11/29/24 11/29/24 11/29/24 08:33 08:55 10:00 Temperature 97.4 F L Pulse Rate 124 H 109 H 115 H Respiratory 18 18 18 Rate Blood Pressure 174/83 143/88 O2 Sat by Pulse 97 95 97 Oximetry 11/29/24 11/29/24 11:29 12:49 Temperature Pulse Rate 102 H 110 H Respiratory 18 18 Rate Blood Pressure 110/74 104/65 O2 Sat by Pulse 97 99 Oximetry Medical Decision Making - Medical Decision Making Was pt. sent in by a medical professional or institution (GARRICK Irwin, DRUM SAW OPERATOR, urgent care, hospital, or senior care...) When possible be specific @ -No Did you speak to anyone other than the patient for history (EMS, parent, family, police, friend...)? What history was obtained from this source @ -No Did you review nursing and triage notes (agree or disagree)? Why? @ -I reviewed and agree with nursing and triage notes Were old charts reviewed (outside hosp., previous admission, EMS record, old EKG, old radiological studies, urgent care reports/EKG's, senior care records)? Report findings @ -No old charts were reviewed Differential Weakness: Hypoglycemia, shock, sepsis, hyponatremia, anemia, infection, MN, ETOH, adverse medicine reaction, overdose, stroke, this is not meant to be an all-inclusive list. EKG interpreted by me (3pts min.). @ -Atrial fibrillation with RVR rate of 125, QRS duration 85, QTc [address] segment elevation ST segment depression in the lateral precordial leads. X-rays interpreted by me (1pt min.). @ -Chest x-ray negative for acute cardiopulmonary findings CT interpreted by me (1pt min.). @ -CT negative for intracranial hemorrhage or mass effect U/S interpreted by me (1pt. min.). @ -None done What testing was considered but not performed or refused? (CT, X-rays, U/S, labs)? Why? @ -None What meds were considered but not given or refused? Why? @ -None Did you discuss the management of the patient with other professionals (professionals i.e. GARRICK Irwin, DRUM SAW OPERATOR, lab, RT, psych nurse, social media intern, business objects report developer, teacher, mobile patrol officer, caser shoe parts)? Give summary @ -No Was smoking cessation discussed for >3mins.? @ -No Was critical care preformed (if so, how long)? @ -No Were there social determinants of health that impacted care today? How? (Homelessness, low income, unemployed, alcoholism, drug addiction, transportation, low edu. Level, literacy, decrease access to med. care, long term, rehab)? @ -No Was there de-escalation of care discussed even if they declined (Discuss DNR or withdrawal of care, Hospice)? DNR status @ -No What co-morbidities impacted this encounter? (DM, HTN, Smoking, COPD, CAD, Cancer, CVA, ARF, Chemo, Hep., AIDS, mental health diagnosis, sleep apnea, morbid obesity)? @ -[Atrial fibrillation, recent medication of Mounjaro Was patient admitted / discharged? Hospital course, mention meds given and route, prescriptions, significant lab abnormalities, going to OR and other pertinent info. @ --year-old female with generally not feeling well. This began mostly after taking [id number]. Patient is in atrial fibrillation with a rate of 1 10-1 20 upon arrival. She has normal CBC, normal CMP, negative urinalysis, negative viral panel. Initial lactic is 3.7 treated with normal saline and repeat is normal. The patient is reevaluated several times and is eager for discharge. She is given strict return parameters. Undiagnosed new problem with uncertain prognosis? @ -No Drug Therapy requiring intensive monitoring for toxicity (Heparin, Nitro, Insulin, Cardizem)? @ -No Were any procedures done? @ -No Diagnosis/symptom? @ -[Weakness, dehydration Acute, or Chronic, or Acute on Chronic? @Acute Uncomplicated (without systemic symptoms) or Complicated (systemic symptoms)? @ -Default Side effects of treatment? @ -No Exacerbation, Progression, or Severe Exacerbation? @ -No Poses a threat to life or bodily function? How? (Chest pain, USA, MN, pneumonia, PE, COPD, DKA, ARF, appy, cholecystitis, CVA, Diverticulitis, Homicidal, Suicidal, threat to staff... and all critical care pts) @ -[Low risk at this time - Lab Data Result diagrams: 11/29/24 08:55 11/29/24 08:55 Lab Results 11/29/24 11/29/24 11/29/24 Range/Units 08:55 08:55 08:55 WBC 13.0 H (3.8-10.6) k/uL RBC 4.75 (3.80-5.40) m/uL Hgb 14.0 (11.4-16.0) gm/dL Hct 40.4 (34.0-46.0) % MCV 85.0 (80.0-100.0) fL MCH 29.4 (25.0-35.0) pg MCHC 34.6 (31.0-37.0) g/dL RDW 14.2 (11.5-15.5) % Plt Count 247 (150-450) k/uL MPV 9.5 Neutrophils % 74 % Lymphocytes % 21 % Monocytes % 3 % Eosinophils % 1 % Basophils % 0 % Neutrophils # 9.6 H (1.3-7.7) k/uL Lymphocytes # 2.7 (1.0-4.8) k/uL Monocytes # 0.4 (0-1.0) k/uL Eosinophils # 0.1 (0-0.7) k/uL Basophils # 0.0 (0-0.2) k/uL PT 10.7 (10.0-12.5) sec INR 1.0 (<1.2) APTT 25.2 (22.0-30.0) sec Sodium 139 (137-145) mmol/L Potassium 3.2 L (3.5-5.1) mmol/L Chloride 101 (98-107) mmol/L Carbon Dioxide 27 (22-30) mmol/L Anion Gap 11 mmol/L BUN 12 (7-17) mg/dL Creatinine 0.83 (0.52-1.04) mg/dL Est GFR (CKD-EPI)AfAm 80 (>60 ml/min/1.73 sqM) Est GFR (CKD-EPI)NonAf 69 (>60 ml/min/1.73 sqM) Glucose 143 H (74-99) mg/dL Lactic Ac Sepsis Rflx Plasma Lactic Acid Jey (0.7-2.0) mmol/L Calcium 8.8 (8.4-10.2) mg/dL Magnesium 1.8 (1.6-2.3) mg/dL Total Bilirubin 0.7 (0.2-1.3) mg/dL AST 19 (14-36) U/L ALT 25 (4-34) U/L Alkaline Phosphatase 169 H (38-126) U/L Troponin I (0.000-0.034) ng/mL Total Protein 6.6 (6.3-8.2) g/dL Albumin 4.1 (3.5-5.0) g/dL Urine Color Urine Appearance (Clear) Urine pH (5.0-8.0) Ur Specific [place] (1.001-1.035) Urine Protein (Negative) Urine Glucose (UA) (Negative) Urine Ketones (Negative) Urine Blood (Negative) Urine Nitrite (Negative) Urine Bilirubin (Negative) Urine Urobilinogen (<2.0) mg/dL Ur Leukocyte Esterase (Negative) Influenza Type A (PCR) (Not Detectd) Influenza Type B (PCR) (Not Detectd) RSV (PCR) (Not Detectd) SARS-CoV-2 (PCR) (Not Detectd) 11/29/24 11/29/24 11/29/24 Range/Units 08:55 08:55 08:55 WBC (3.8-10.6) k/uL RBC (3.80-5.40) m/uL Hgb (11.4-16.0) gm/dL Hct (34.0-46.0) % MCV (80.0-100.0) fL MCH (25.0-35.0) pg MCHC (31.0-37.0) g/dL RDW (11.5-15.5) % Plt Count (150-450) k/uL MPV Neutrophils % % Lymphocytes % % Monocytes % % Eosinophils % % Basophils % % Neutrophils # (1.3-7.7) k/uL Lymphocytes # (1.0-4.8) k/uL Monocytes # (0-1.0) k/uL Eosinophils # (0-0.7) k/uL Basophils # (0-0.2) k/uL PT (10.0-12.5) sec INR (<1.2) APTT (22.0-30.0) sec Sodium (137-145) mmol/L Potassium (3.5-5.1) mmol/L Chloride (98-107) mmol/L Carbon Dioxide (22-30) mmol/L Anion Gap mmol/L BUN (7-17) mg/dL Creatinine (0.52-1.04) mg/dL Est GFR (CKD-EPI)AfAm (>60 ml/min/1.73 sqM) Est GFR (CKD-EPI)NonAf (>60 ml/min/1.73 sqM) Glucose (74-99) mg/dL Lactic Ac Sepsis Rflx Plasma Lactic Acid Jey 3.7 H* (0.7-2.0) mmol/L Calcium (8.4-10.2) mg/dL Magnesium (1.6-2.3) mg/dL Total Bilirubin (0.2-1.3) mg/dL AST (14-36) U/L ALT (4-34) U/L Alkaline Phosphatase (38-126) U/L Troponin I <0.012 (0.000-0.034) ng/mL Total Protein (6.3-8.2) g/dL Albumin (3.5-5.0) g/dL Urine Color Urine Appearance (Clear) Urine pH (5.0-8.0) Ur Specific [place] (1.001-1.035) Urine Protein (Negative) Urine Glucose (UA) (Negative) Urine Ketones (Negative) Urine Blood (Negative) Urine Nitrite (Negative) Urine Bilirubin (Negative) Urine Urobilinogen (<2.0) mg/dL Ur Leukocyte Esterase (Negative) Influenza Type A (PCR) Not Detected (Not Detectd) Influenza Type B (PCR) Not Detected (Not Detectd) RSV (PCR) Not Detected (Not Detectd) SARS-CoV-2 (PCR) Not Detected (Not Detectd) 11/29/24 11/29/24 11/29/24 Range/Units 09:06 09:40 12:48 WBC (3.8-10.6) k/uL RBC (3.80-5.40) m/uL Hgb (11.4-16.0) gm/dL Hct (34.0-46.0) % MCV (80.0-100.0) fL MCH (25.0-35.0) pg MCHC (31.0-37.0) g/dL RDW (11.5-15.5) % Plt Count (150-450) k/uL MPV Neutrophils % % Lymphocytes % % Monocytes % % Eosinophils % % Basophils % % Neutrophils # (1.3-7.7) k/uL Lymphocytes # (1.0-4.8) k/uL Monocytes # (0-1.0) k/uL Eosinophils # (0-0.7) k/uL Basophils # (0-0.2) k/uL PT (10.0-12.5) sec INR (<1.2) APTT (22.0-30.0) sec Sodium (137-145) mmol/L Potassium (3.5-5.1) mmol/L Chloride (98-107) mmol/L Carbon Dioxide (22-30) mmol/L Anion Gap mmol/L BUN (7-17) mg/dL Creatinine (0.52-1.04) mg/dL Est GFR (CKD-EPI)AfAm (>60 ml/min/1.73 sqM) Est GFR (CKD-EPI)NonAf (>60 ml/min/1.73 sqM) Glucose (74-99) mg/dL Lactic Ac Sepsis Rflx Y Plasma Lactic Acid Jey 1.6 (0.7-2.0) mmol/L Calcium (8.4-10.2) mg/dL Magnesium (1.6-2.3) mg/dL Total Bilirubin (0.2-1.3) mg/dL AST (14-36) U/L ALT (4-34) U/L Alkaline Phosphatase (38-126) U/L Troponin I (0.000-0.034) ng/mL Total Protein (6.3-8.2) g/dL Albumin (3.5-5.0) g/dL Urine Color Colorless Urine Appearance Clear (Clear) Urine pH 5.5 (5.0-8.0) Ur Specific [place] 1.006 (1.001-1.035) Urine Protein Negative (Negative) Urine Glucose (UA) Negative (Negative) Urine Ketones Negative (Negative) Urine Blood Negative (Negative) Urine Nitrite Negative (Negative) Urine Bilirubin Negative (Negative) Urine Urobilinogen <2.0 (<2.0) mg/dL Ur Leukocyte Esterase Negative (Negative) Influenza Type A (PCR) (Not Detectd) Influenza Type B (PCR) (Not Detectd) RSV (PCR) (Not Detectd) SARS-CoV-2 (PCR) (Not Detectd) Disposition Clinical Impression: Weakness, Dehydration Disposition: HOME SELF-CARE Condition: Fair Instructions (If sedation given, give patient instructions): Weakness (ED), Dehydration (ED) Is patient prescribed a controlled substance at d/c from ED?: No Referrals: Nakul Aburto MD [Primary Care Provider] - 1-2 days Time of Disposition: 13:27
[2024-11-29] MEDS: SODIUM CHLORIDE 0.9% 1,000 ML IV STA (09:10)
[2024-11-29 09:16] LABS: Appearance,Urine Clear (Clear); Bilirubin,Urine Negative (Negative); Blood,Urine Negative (Negative); Color,Urine Colorless; Glucose,Urine (UA) Negative (Negative); Ketones,Urine Negative (Negative); Leukocyte Esterase,Urine Negative (Negative); Nitrite,Urine Negative (Negative); PH, Urine 5.5 (5.0-8.0); Protein,Urine Negative (Negative); Specific Gravity,Urine 1.006 (1.001-1.035); Urobilinogen,Urine <2.0 mg/dL (<2.0)
[2024-11-29 09:24] LABS: Partial Thromboplastin Time 25.2 sec (22.0-30.0); Prothrombin Time 10.7 sec (10.0-12.5)
[2024-11-29 09:33] LABS: ALT 25 U/L (4-34); AST 19 U/L (14-36); African American GFR (CKD) 80 (>60 ml/min/1.73 sqM); Albumin 4.1 g/dL (3.5-5.0); Alkaline Phosphatase 169 U/L (38-126); Anion Gap 11 mmol/L; Blood Urea Nitrogen 12 mg/dL (7-17); Calcium 8.8 mg/dL (8.4-10.2); Carbon Dioxide 27 mmol/L (22-30); Chloride 101 mmol/L (98-107); Glucose 143 mg/dL (74-99); Magnesium 1.8 mg/dL (1.6-2.3); Non-African American GFR(CKD) 69 (>60 ml/min/1.73 sqM); Potassium 3.2 mmol/L (3.5-5.1); Sodium 139 mmol/L (137-145); Total Bilirubin 0.7 mg/dL (0.2-1.3); Total Protein 6.6 g/dL (6.3-8.2)
[2024-11-29 09:37] LABS: Basophils % (A) 0 %; Eosinophils # (A) 0.1 k/uL (0-0.7); Eosinophils % (A) 1 %; HCT 40.4 % (34.0-46.0); Lymphocytes # (A) 2.7 k/uL (1.0-4.8); Lymphocytes % (A) 21 %; MCH 29.4 pg (25.0-35.0); MCHC 34.6 g/dL (31.0-37.0); Mean Platelet Volume 9.5; Monocytes # (A) 0.4 k/uL (0-1.0); Monocytes % (A) 3 %; Neutrophils # (A) 9.6 k/uL (1.3-7.7); Neutrophils % (A) 74 %; Platelet Count 247 k/uL (150-450); RBC 4.75 m/uL (3.80-5.40); RDW 14.2 % (11.5-15.5)
[2024-11-29 09:52] LABS: Influenza A Not Detected (Not Detectd); Influenza B Not Detected (Not Detectd); RSV Not Detected (Not Detectd)
--- NOTE | 2024-11-29 10:19 | CT ---
EXAMINATION TYPE: CT brain wo con DATE OF EXAM: 11/29/2024 10:08 AM COMPARISON: None. CLINICAL INDICATION: Female, 74 years old with history of weakness, a fib/weakness, TECHNIQUE: Examination was done in axial plane without intravenous contrast. Coronal and sagittal r econstructions performed. CT DLP: 1110 mGycm, Automated exposure control for dose reduction was used. FINDINGS: There is no evidence of acute intracranial hemorrhage, acute ischemic changes, mass, mass-effect, or extra-axial fluid collection. There is no effacement of cerebral sulci or basal subarachnoid cister ns. There is no hydrocephalus. There is no midline shift. Otto-white matter distinction is preserv ed. Either a tiny lacunar infarct versus prominent perivascular space left basal ganglia. Mild atheroscle rotic calcifications in the carotid siphons. Suspect an incidental small 8 mm pineal gland cyst. Leftward nasal septal deviation. Minimal mucosal thickening in the sphenoid sinuses. Orbits and globe s are intact. IMPRESSION: No acute intracranial abnormality seen. [facility], Workstation: [place] [employer], 11/29/2024 10:17 AM
--- NOTE | 2024-11-29 10:27 | XR ---
EXAMINATION TYPE: XR chest 2V DATE OF EXAM: 11/29/2024 10:16 AM COMPARISON: 01/24/2024 CLINICAL INDICATION: Female, 74 years old with history of Weakness, , TECHNIQUE: PA and lateral views FINDINGS: Heart normal size. Aorta within normal limits. Mild interstitial prominence. Some strandy atelectasis of the left base. No consolidation or pleural effusion. PFO closure device noted. DISH throughout th e thoracic spine. IMPRESSION: Interstitial prominence which may in part be chronic. Consider bronchitis or asthma. Otherwise, no ac tree process seen. [facility], , 11/29/2024 10:25 AM
[2024-11-29] MEDS: POTASSIUM CHLORIDE ER 20 MEQ TAB.ER PO STA (11:31)
[2024-11-29] MEDS: SODIUM CHLORIDE 0.9% 500 ML 500 ML IV ONE (11:31)
[2024-11-29 13:40] VITALS: BP 122/88; PULSE 98; TEMP 97.8
== END 2024-11-29 13:40 | disposition home or self-care (01) ==
LOC: EC 08:31
DX: R53.1 Weakness (principal); E86.0 Dehydration; I48.91 Unspecified atrial fibrillation; E11.9 Type 2 diabetes mellitus without complications; Z79.85 Long-term (current) use of injectable non-insulin antidiabetic drugs; Z87.891 Personal history of nicotine dependence
CPT/HCPCS: 36415; 70450; 71046; 80053; 81003; 83605; 83735; 84484; 85025; 85610; 85730; 87636; 93005; 96360; 99285

== ENCOUNTER → 2025-02-13 | Outpatient (CLI) | payer MEDICARE ==
[2025-02-13 15:19] VITALS: PULSE 62; RESP 16; TEMP 97.7
--- NOTE | 2025-02-13 16:31 | P.PROGSL ---
Subjective DATE: 02/13/2025 FOLLOW UP VISIT. Patient with obstructive sleep apnea hypopnea syndrome return to sleep center for follow-up visit. This was first visit with new CPAP unit. Information from previous visit have been reviewed. Patient is using PAP equipment every night for the whole night, getting PAP supplies in time. The patient does not have significant problems with the mask, PAP unit and humidification. [place] sleepiness scale is 0. I checked information from PAP unit. PAP unit pressure 7-10, average 10.0 cm H2O. Usage is 100% for more then 4 hours, average 8.5 hours per night. Leak is 10.6 l/m, which is in acceptable range. Apnea Hypopnea Index is 1.8, which is normal. MEDICATIONS have been reviewed, please see below. During physical exam: GENERAL: A pleasant patient without any distress. VITAL SIGNS: Please see below, weight is 256 lbs. HEENT: PERRLA, EOMI.low position of soft palate, Mallapati 4 . NECK: Supple. No JVD. LUNGS: Clear to percussion and to auscultation. Good air exchange. No wheezing or rhonchi. HEART: S1, S2 regular. ABDOMEN: Soft and nontender.[] EXTREMITIES: No clubbing or cyanosis. CLIENT INTEGRATION MANAGER: Awake, alert, and oriented x3. No focal deficit. Impressions: 1. Obstructive sleep apnea-hypopnea syndrome. Patient demonstrated great compliance with treatment, benefiting from treatment. 2. Obesity, BMI in the range of 45, patient increased weight on 6 pounds comparing with previous visit. 3. Hypertension. 4. Coronary artery disease, status post stent insertion in 2018. 5. Diabetes mellitus. 6. Hyperlipidemia. 7. History of nephrolithiasis. 8. Hypothyroidism. 9. Acid reflux. 10. Status post cholecystectomy. 11. Status post hysterectomy. Plan: 1. Continue using PAP equipment every night for the whole night. 2. Sleep hygiene with regular time in bed for at least 7.5-8 hours 3. PAP unit should stay lower then position of the head. 4. Advised patient to remove all remaining water from humidifier canister daily and make it dry after each usage. Refill canister with fresh distilled water before each usage. 5. Watching and losing weight. 6. Precautions related to driving. No driving if feel any sleepiness. 7. I will maintain prescription for PAP supplies including mask, tube, filters. 8. Follow up visit in 8 months or earlier if patient has any problems. Thank you very much for allowing me to participate in the management of your patient. Eliseo Watters MD, PhD, FAASM. Diplomat of [place], Sleep Medicine Board by [employer] [facility] [place] Objective - Vital Signs Vital Signs: Vital Signs Temp 97.7 F 02/13/25 15:18 Pulse 62 02/13/25 15:18 Resp 16 02/13/25 15:18 BP Pulse Ox 96 02/13/25 15:18 FiO2 Intake & Output 02/12/25 02/13/25 02/13/25 18:59 06:59 18:59 Weight 116.12 kg Home Medications: Home Medications Medication Instructions Recorded Confirmed Type Multivitamins, Thera [Multivitamin 1 tab PO DAILY 10/12/16 04/24/24 History (formulary)] Gabapentin [Neurontin] 300 mg PO Q8H 02/18/20 04/24/24 History metFORMIN HCL 500 mg PO DAILY 02/18/20 04/24/24 History Levothyroxine Sodium [Synthroid] 88 mcg PO DAILY 11/26/20 04/24/24 History Nitroglycerin Sl Tabs [Nitrostat] 0.4 mg SUBLINGUAL Q5M PRN 90 Days 01/10/21 04/24/24 Rx #90 tab Apixaban [Eliquis] 5 mg PO BID #60 tab 01/15/21 04/24/24 Rx Aspirin 81 mg PO DAILY chew 01/20/21 04/24/24 Rx Magnesium Oxide [Mag-Ox] 400 mg PO DAILY 30 Days #30 tab 01/20/21 04/24/24 Rx Atorvastatin [Lipitor] 40 mg PO HS 07/16/23 04/24/24 History Furosemide [Lasix] 40 mg PO DAILY 07/16/23 04/24/24 History Omeprazole 40 mg PO BID 07/16/23 04/24/24 History Potassium Chloride ER [K-Dur 20] 20 meq PO DAILY 07/16/23 04/24/24 History Zinc Gluconate [Zinc] 50 mg PO DAILY 07/16/23 04/24/24 History Budesonide [Pulmicort] 0.5 mg INHALATION RT-BID 30 Days 07/18/23 04/24/24 Rx #60 ml Ipratropium-Albuterol Nebulize 3 ml INHALATION RT-QID 30 Days 07/18/23 04/24/24 Rx [Duoneb 0.5 mg-3 mg/3 ml Soln] #120 each Losartan [Cozaar] 50 mg PO DAILY 90 Days #90 tab 07/18/23 04/24/24 Rx Isosorbide Mononitrate ER [Imdur] 30 mg PO DAILY 01/24/24 04/24/24 History Tirzepatide [Mounjaro] 2.5 mg SQ TU 01/24/24 01/24/24 History amLODIPine [Norvasc] 5 mg PO DAILY 01/24/24 04/24/24 History Amiodarone [Cordarone] 200 mg PO BID 30 Days #60 tab 01/26/24 Rx Metoprolol Tartrate [Lopressor] 75 mg PO BID 30 Days #60 tab 01/26/24 04/24/24 Rx
== END ==
LOC: 3 N SLEEP 14:43
PROVIDERS: ATTEND Internal Medicine
DX: G47.33 Obstructive sleep apnea (adult) (pediatric) (principal); E66.9 Obesity, unspecified; I10 Essential (primary) hypertension; E11.9 Type 2 diabetes mellitus without complications; E78.5 Hyperlipidemia, unspecified; E03.9 Hypothyroidism, unspecified; K21.9 Gastro-esophageal reflux disease without esophagitis; Z68.42 Body mass index [BMI] 45.0-49.9, adult; Z87.442 Personal history of urinary calculi; Z98.61 Coronary angioplasty status; Z90.49 Acquired absence of other specified parts of digestive tract; Z90.710 Acquired absence of both cervix and uterus; Z87.891 Personal history of nicotine dependence; Z99.89 Dependence on other enabling machines and devices
CPT/HCPCS: 99212

== ENCOUNTER → 2025-03-04 | Outpatient (CLI) | payer MEDICARE ==
--- NOTE | 2025-03-05 07:23 | BD ---
EXAMINATION TYPE: Axial Bone Density DATE OF EXAM: 03/04/2025 CLINICAL HISTORY: 74 years old Female. ICD-10 CODE: Z78.0 POST MENOPAUSAL W/O HRT , Additional Histo ry: Height: 5 ft 3 in Weight: 252 FRAX RISK QUESTIONS: Alcohol (3 or more units per day): no Family History (Parent hip fracture): no Glucocorticoids (More than 3mos): yes (Ex: prednisone, prednisolone, methylprednisolone, dexamethasone, and hydrocortisone). History of Fracture in Adulthood: no Secondary Osteoporosis: 1. Type 1 Diabetes: type 2 2. Hyperthyroidism: no 3. Menopause before 45: yes 4. Malnutrition: no 5. Chronic liver disease: no Rheumatoid Arthritis: yes Current Tobacco Use: no RISK FACTORS HISTORY OF: Surgery to Spine/Hip(right/left)/Wrist (right/left): no MEDICATIONS: Thyroid Medications: yes Which medication: levothyroxine How Lon years Osteoporosis Medications: none EXAM MEASUREMENTS: Bone mineral densitometry was performed using the [employer] System. Bone mineral density as measured about the Lumbar spine is: ----- L1-L4(G/cm2): 1.719 T Score Values are as follows: ----- L1: 3.5 ----- L2: 4.1 ----- L3: 4.7 ----- L4: 5.2 ----- L1-L4: 4.5 Z Score Values are as follows: ----- L1: 4.2 ----- L2: 4.7 ----- L3: 5.3 ----- L4: 5.8 ----- L1-L4: 5.1 baseline Bone mineral density about the R hip (g/cm2): 0.991 Bone mineral density about the L hip (g/cm2): 0.939 T Score values are as follows: -----R Neck: -0.3 -----L Neck: -0.7 -----R Total: 1.5 -----L Total: 1.4 Z Score values are as follows: -----R Neck: 0.9 -----L Neck: 0.5 -----R Total: 2.5 -----L Total: 2.3 baseline FRAX%s: The graph provided illustrates a 8.0 % chance for a major osteoporotic fx and a 1.0% chance f or the hips probability for fx in 10 years time. IMPRESSION: Normal (Values between +1 and -1 indicate normal bone mass). Consider repeating this study in 5 year s or sooner if there is some new clinical indication. NOTE: T-SCORE=SD OF THE YOUNG ADULT MEAN. [facility], , 03/05/2025 7:21 AM
--- NOTE | 2025-03-05 07:27 | MM ---
Reason for Exam: Screening (asymptomatic). Last mammogram was performed 1 year(s) and 10 month(s) ago. Patient History: Menarche at age 13. First Full-Term at age 20. Left ovary removed at age 37. Right ovary removed at age 37. Hysterectomy at age 37. Postmenopausal. Risk Values: Miley 5 year model risk: 1.4%. NCI Lifetime model risk: 2.9%. Prior Study Comparison: 12/13/2016 Bilateral Screening Mammogram, [facility]. 04/29/2022 Bilateral MG 3D screening mammo w/cad, [facility]. 05/09/2023 Bilateral MG 3D screening mammo w/cad, [facility]. Tissue Density: The breasts are heterogeneously dense, which may obscure small masses. Findings: Analyzed By CAD. Right breast: There is no suspicious group of microcalcifications or new suspicious mass. Left breast: There is no suspicious group of microcalcifications or new suspicious mass. Overall Assessment: Negative, BI-RAD 1 Management: Screening Mammogram of both breasts in [address] [facility] will attempt to contact patient to return for supplemental views and ultrasound if indicated. Patient should continue monthly self-breast exams. A clinical breast exam by your physician is recommended on an annual basis. This exam should not preclude additional follow-up of suspicious palpable abnormalities. Note on Miley scores and lifetime risk: 1. A Miley score greater than 3% is considered moderate risk. If this is the case, consider specialist referral to assess eligibility for a risk reducing agent. 2. If overall lifetime risk for the development of breast cancer is 20% or higher, the patient may qualify for future screening with alternating mammogram and breast MRI. [facility], , 03/05/2025 7:23 AM. Electronically signed and approved by: Scotty Mcpherson DO
== END | disposition home or self-care (01) ==
LOC: RADBDWWP 12:57
PROVIDERS: ATTEND Family Medicine
DX: Z12.31 Encounter for screening mammogram for malignant neoplasm of breast (principal); R92.333 Mammographic heterogeneous density, bilateral breasts; Z78.0 Asymptomatic menopausal state
CPT/HCPCS: 77063; 77067; 77080